=== PATIENT | female | born 1945 | race Caucasian/White ===

== ENCOUNTER 2016-04-29 20:46 | Emergency (ER) | payer MEDICARE, OTHER ==
--- NOTE | 2016-04-29 21:23 | ED ---
General Adult HPI - General Chief complaint: Shortness of Breath Stated complaint: MERRICK Time Seen by Provider: 04/29/16 21:00 Source: patient, RN notes reviewed Mode of arrival: wheelchair Limitations: no limitations - History of Present Illness Initial comments: A 71-year-old female with past medical history significant for asthma. Patient states she does have shortness breath over the last couple of days it seems to gotten worse. She also feels as though her heart is racing faster than normal. Patient denies any fever chills or cough. Patient denies any chest pain. Patient denies any episodes of diaphoresis. Patient denies any nausea. Patient states she has been constipated lately but she states that ongoing problem as well. Patient denies headache patient denies any numbness weakness. Patient denies dizziness lightheadedness or near syncopal episode. Patient denies any recent injury or trauma. - Related Data Home Medications Medication Instructions Recorded Confirmed Hydrochlorothiazide [Hydrodiuril] 12.5 mg PO QAM 10/13/13 04/29/16 Albuterol Inhaler [Ventolin Hfa 2 puff INHALATION RT-Q4H PRN 07/20/15 04/29/16 Inhaler] Baclofen [Lioresal] 5 mg PO TID 07/20/15 04/29/16 Dabigatran [Pradaxa] 150 mg PO BID 07/20/15 04/29/16 Hydrocodone/Acetaminophen [[place] 1 tab PO QID PRN 07/20/15 04/29/16 7.5-325] Moexipril [Univasc] 7.5 mg PO BID 07/20/15 04/29/16 Pravastatin Sodium [Pravachol] 40 mg PO DAILY 07/20/15 04/29/16 Latanoprost Ophth [Xalatan 0.005%] 1 drops BOTH EYES HS 01/21/16 04/29/16 Diclofenac Sodium [Voltaren Gel] 2 gram TOPICAL BID 03/14/16 04/29/16 Calcium Carbonate [Calcium] 600 mg PO DAILY 04/11/16 04/29/16 Levalbuterol Hfa Inhaler [Xopenex 2 puff INHALATION RT-TID PRN 04/11/16 04/29/16 Hfa Inhaler] Verapamil HCl [Verapamil ER] 240 mg PO BID 04/11/16 04/29/16 Previous Rx's Medication Instructions Recorded Omeprazole [PriLOSEC] 20 mg PO AC-BRKFST #30 capsule. 10/20/13 Acetaminophen Tab [Tylenol] 650 mg PO Q6HR PRN #0 tab 03/17/16 Ciprofloxacin HCl [Cipro] 500 mg PO Q12HR #14 tablet 04/11/16 Potassium Chloride ER [K-Dur 20] 20 meq PO DAILY #7 tab 04/29/16 Allergies Allergy/AdvReac Type Severity Reaction Status Date / Time No Known Allergies Allergy Verified 04/29/16 20:53 Review of Systems ROS Statement: Those systems with pertinent positive or pertinent negative responses have been documented in the HPI. ROS Other: All systems not noted in ROS Statement are negative. Past Medical History Past Medical History: Atrial Fibrillation, Asthma, GERD/Reflux, GI Bleed, Hyperlipidemia, Hypertension, Osteoarthritis (OA), Pneumonia, Syncope Additional Past Medical History / Comment(s): DJD, VARICOSE VEINS, BRONCHITIS, GLaUCOMA, stomach ULCER,DIVERTICULITIS,constipation History of Any Multi-Drug Resistant Organisms: None Reported Past Surgical History: Adenoidectomy, Appendectomy, Heart Catheterization, Hysterectomy, Tonsillectomy, Tubal Ligation Additional Past Surgical History / Comment(s): BILLY CATARACTS. Past Anesthesia/Blood Transfusion Reactions: No Reported Reaction Past Psychological History: No Psychological Hx Reported Additional Psychological History / Comment(s): PT LIVES ALONE IN [place] HER GRANDDAUGHTER KVNG VISITS DAILY.. Smoking Status: Never smoker Past Alcohol Use History: None Reported Past Drug Use History: None Reported - Past Family History Father Family Medical History: COPD Additional Family Medical History / Comment(s): EMPHYSEMA Mother Family Medical History: Diabetes Mellitus, Osteoarthritis (OA) Additional Family Medical History / Comment(s): EMPHYSEMA, BOWEL OBSTRUCTION/ COLOSTOMY General Exam - General Exam Comments Initial Comments: GENERAL: Patient is well-developed and well-nourished. Patient is nontoxic and well- hydrated and is in mild distress. ENT: Neck is soft and supple. No significant lymphadenopathy is noted. Oropharynx is clear. Moist mucous membranes. Neck has full range of motion without eliciting any pain. EYES: The sclera were anicteric and conjunctiva were pink and moist. Extraocular movements were intact and pupils were equal round and reactive to light. Eyelids were unremarkable. PULMONARY: Unlabored respirations. Good breath sounds bilaterally. No audible rales rhonchi or wheezing was noted. CARDIOVASCULAR: Patient has a regular heart rate and is tachycardic ABDOMEN: Soft and nontender with normal bowel sounds. No palpable organomegaly was noted. There is no palpable pulsatile mass. SKIN: Skin is clear with no lesions or rashes and otherwise unremarkable. NEUROLOGIC: Patient is alert and oriented x3. Cranial nerves II through XII are grossly intact. Motor and sensory are also intact. Normal speech, volume and content. Symmetrical smile. MUSCULOSKELETAL: Normal extremities with adequate strength and full range of motion. No lower extremity swelling or edema. No calf tenderness. LYMPHATICS: No significant lymphadenopathy is noted PSYCHIATRIC: Normal psychiatric evaluation. Limitations: no limitations Course Vital Signs 04/29/16 04/29/16 04/29/16 20:54 21:22 22:40 Temperature 96.9 F L Pulse Rate 58 L 90 Respiratory 20 18 Rate Blood Pressure 172/68 150/74 O2 Sat by Pulse 99 98 99 Oximetry 04/29/16 04/29/16 22:59 23:05 Temperature Pulse Rate 83 84 Respiratory Rate Blood Pressure O2 Sat by Pulse Oximetry Medical Decision Making - Medical Decision Making EKG shows sinus tachycardia with an occasional PVC and multiple PACs at 95 bpm. ID interval is 192 QRS is 90 QT 334 QTC is 419 per patient's EKG shows no ST segment elevation or depression or T-wave abdomen is noted. Patient's potassium was low so I gave her 20 mEq by mouth and 10 IV. I went back into reevaluate the patient after she received a breathing treatment and she was feeling considerably better. - Lab Data Result diagrams: 04/29/16 21:37 04/29/16 21:37 Lab Results 04/29/16 04/29/16 04/29/16 Range/Units 21:37 21:37 21:37 WBC 10.6 (3.8-10.6) k/uL RBC 4.39 (3.80-5.40) m/uL Hgb 14.1 (11.4-16.0) gm/dL Hct 44.2 (34.0-46.0) % MCV 100.6 H (80.0-100.0) fL MCH 32.2 (25.0-35.0) pg MCHC 32.0 (31.0-37.0) g/dL RDW 13.1 (11.5-15.5) % Plt Count 193 (150-450) k/uL Neutrophils % 61 % Lymphocytes % 27 % Monocytes % 7 % Eosinophils % 2 % Basophils % 0 % Neutrophils # 6.4 (1.3-7.7) k/uL Lymphocytes # 2.9 (1.0-4.8) k/uL Monocytes # 0.7 (0-1.0) k/uL Eosinophils # 0.2 (0-0.7) k/uL Basophils # 0.0 (0-0.2) k/uL PT (9.0-12.0) sec INR (<1.1) APTT (22.0-30.0) sec D-Dimer (<0.60) mg/L FEU Sodium 140 (137-145) mmol/L Potassium 2.8 L* (3.5-5.1) mmol/L Chloride 100 (98-107) mmol/L Carbon Dioxide 29 (22-30) mmol/L Anion Gap 11 mmol/L BUN 16 (7-17) mg/dL Creatinine 1.10 H (0.52-1.04) mg/dL Est GFR (MDRD) Af Amer 59 (>60 ml/min/1.73 sqM) Est GFR (MDRD) Non-Af 49 (>60 ml/min/1.73 sqM) Glucose 113 H (74-99) mg/dL Calcium 10.2 (8.4-10.2) mg/dL Magnesium 1.8 (1.6-2.3) mg/dL Total Bilirubin 1.0 (0.2-1.3) mg/dL AST 31 (14-36) U/L ALT 31 (9-52) U/L Alkaline Phosphatase 72 (38-126) U/L Total Creatine Kinase 73 (30-135) U/L CK-MB (CK-2) 1.3 (0.0-2.4) ng/mL CK-MB (CK-2) Rel Index 1.8 Troponin I <0.012 (0.000-0.034) ng/mL Total Protein 6.8 (6.3-8.2) g/dL Albumin 4.0 (3.5-5.0) g/dL 01/08/17 Range/Units 21:37 WBC (3.8-10.6) k/uL RBC (3.80-5.40) m/uL Hgb (11.4-16.0) gm/dL Hct (34.0-46.0) % MCV (80.0-100.0) fL MCH (25.0-35.0) pg MCHC (31.0-37.0) g/dL RDW (11.5-15.5) % Plt Count (150-450) k/uL Neutrophils % % Lymphocytes % % Monocytes % % Eosinophils % % Basophils % % Neutrophils # (1.3-7.7) k/uL Lymphocytes # (1.0-4.8) k/uL Monocytes # (0-1.0) k/uL Eosinophils # (0-0.7) k/uL Basophils # (0-0.2) k/uL PT 15.9 H (9.0-12.0) sec INR 1.6 (<1.1) APTT 54.7 H (22.0-30.0) sec D-Dimer 0.41 (<0.60) mg/L FEU Sodium (137-145) mmol/L Potassium (3.5-5.1) mmol/L Chloride (98-107) mmol/L Carbon Dioxide (22-30) mmol/L Anion Gap mmol/L BUN (7-17) mg/dL Creatinine (0.52-1.04) mg/dL Est GFR (MDRD) Af Amer (>60 ml/min/1.73 sqM) Est GFR (MDRD) Non-Af (>60 ml/min/1.73 sqM) Glucose (74-99) mg/dL Calcium (8.4-10.2) mg/dL Magnesium (1.6-2.3) mg/dL Total Bilirubin (0.2-1.3) mg/dL AST (14-36) U/L ALT (9-52) U/L Alkaline Phosphatase (38-126) U/L Total Creatine Kinase (30-135) U/L CK-MB (CK-2) (0.0-2.4) ng/mL CK-MB (CK-2) Rel Index Troponin I (0.000-0.034) ng/mL Total Protein (6.3-8.2) g/dL Albumin (3.5-5.0) g/dL Disposition Clinical Impression: Dyspnea, Multifocal atrial tachycardia, Hypokalemia Disposition: HOME SELF-CARE Condition: Good Instructions: Hypokalemia (ED) Prescriptions: Potassium Chloride ER [K-Dur 20] 20 meq PO DAILY #7 tab Referrals: Faizan Estrella MD [Primary Care Provider] - 1-2 days Time of Disposition: 23:35
[2016-04-29 21:54] LABS: Basophils % (A) 0 %; CH 33.9; CHCM 33.9; Eosinophils # (A) 0.2 k/uL (0-0.7); Eosinophils % (A) 2 %; HCT 44.2 % (34.0-46.0); HGB 14.1 gm/dL (11.4-16.0); Luc # (Auto) 0.32; Luc % (Auto) 3; Lymphocytes # (A) 2.9 k/uL (1.0-4.8); Lymphocytes % (A) 27 %; MCH 32.2 pg (25.0-35.0); MCV 100.6 fL (80.0-100.0); Mean Platelet Volume 8.6; Monocytes # (A) 0.7 k/uL (0-1.0); Monocytes % (A) 7 %; Neutrophils # (A) 6.4 k/uL (1.3-7.7); Neutrophils % (A) 61 %; RBC 4.39 m/uL (3.80-5.40); RDW 13.1 % (11.5-15.5); WBC 10.6 k/uL (3.8-10.6); WBC (Perox) 10.93
[2016-04-29 22:00] LABS: INR 1.6 (<1.1); Partial Thromboplastin Time 54.7 sec (22.0-30.0); Prothrombin Time 15.9 sec (9.0-12.0)
--- NOTE | 2016-04-29 22:01 | XR ---
EXAMINATION TYPE: XR chest 2V DATE OF EXAM: 04/29/2016 9:51 PM COMPARISON: 03/14/2016 HISTORY: Short of breath TECHNIQUE: Frontal and lateral views of the chest are obtained. FINDINGS: Heart is slightly enlarged. There is coarsening of interstitial markings. There is no manda s heart failure. There are no hilar masses. Thoracic aorta is atheromatous. There are chest leads. IMPRESSION: Mild cardiomegaly. Mild pulmonary fibrosis. No acute lung disease. No significant change compared to old exam.
[2016-04-29 22:06] LABS: Creatine Kinase 73 U/L (30-135)
[2016-04-29 22:18] LABS: Creatine Kinase MB 1.3 ng/mL (0.0-2.4); Troponin I <0.012 ng/mL (0.000-0.034)
[2016-04-29 22:23] LABS: Calcium 10.2 mg/dL (8.4-10.2); Magnesium 1.8 mg/dL (1.6-2.3); Total Protein 6.8 g/dL (6.3-8.2)
[2016-04-29 22:27] LABS: Potassium 2.8 mmol/L (3.5-5.1)
[2016-04-29] MEDS ORDERED: POTASSIUM CHLORIDE ER 20 MEQ TAB.ER PO STA (22:27)
[2016-04-29] MEDS ORDERED: IPRATROPIUM-ALBUTEROL 3 ML NEB INHALATION STA (22:36)
[2016-04-29 22:52] VITALS: RESP 18
[2016-04-29] MEDS ORDERED: POTASSIUM CHLORIDE 10 MEQ, LIDOCAINE 2% INJ 10 MG in SODIUM CHLORIDE 0.9% 100 ML IVPB SCH (23:00)
[2016-04-30 00:19] VITALS: BP 154/74; PULSE 86; TEMP 98
== END 2016-04-30 00:18 | disposition home or self-care (01) ==
LOC: EC 20:46
DX: R06.00 Dyspnea, unspecified (principal); I47.1 Supraventricular tachycardia; E87.6 Hypokalemia; I48.91 Unspecified atrial fibrillation; J45.909 Unspecified asthma, uncomplicated; K21.9 Gastro-esophageal reflux disease without esophagitis; E78.5 Hyperlipidemia, unspecified; I10 Essential (primary) hypertension; M19.90 Unspecified osteoarthritis, unspecified site; Z87.01 Personal history of pneumonia (recurrent); H40.9 Unspecified glaucoma; Z98.61 Coronary angioplasty status; Z79.01 Long term (current) use of anticoagulants; Z79.899 Other long term (current) drug therapy
CPT/HCPCS: 99285; 96365; 36415; 94640; 93005; 85379; 80053; 82550; 82553; 83735; 84484; 85025; 85610; 85730; 71020; J2001; J3480

== ENCOUNTER 2016-06-24 20:37 | Emergency (ER) | payer MEDICARE ==
[2016-06-24 20:49] VITALS: RESP 18
--- NOTE | 2016-06-24 21:10 | ED ---
General Adult HPI - General Chief complaint: Abdominal Pain Stated complaint: constipated/wax in ears Time Seen by Provider: 06/24/16 20:53 Source: patient, family, RN notes reviewed, old records reviewed Mode of arrival: ambulatory Limitations: no limitations - History of Present Illness Initial comments: Chief complaint history of present illness is a 69-year-old female here with a friend or family. She's had no bowel movement for 3 days, past history of constipation. Also a fever with productive cough. - Related Data Home Medications Medication Instructions Recorded Confirmed Hydrochlorothiazide [Hydrodiuril] 12.5 mg PO QAM 10/13/13 04/29/16 Albuterol Inhaler [Ventolin Hfa 2 puff INHALATION RT-Q4H PRN 07/20/15 04/29/16 Inhaler] Baclofen [Lioresal] 5 mg PO TID 07/20/15 04/29/16 Dabigatran [Pradaxa] 150 mg PO BID 07/20/15 04/29/16 Hydrocodone/Acetaminophen [[place] 1 tab PO QID PRN 07/20/15 04/29/16 7.5-325] Moexipril [Univasc] 7.5 mg PO BID 07/20/15 04/29/16 Pravastatin Sodium [Pravachol] 40 mg PO DAILY 07/20/15 04/29/16 Latanoprost Ophth [Xalatan 0.005%] 1 drops BOTH EYES HS 01/21/16 04/29/16 Diclofenac Sodium [Voltaren Gel] 2 gram TOPICAL BID 03/14/16 04/29/16 Calcium Carbonate [Calcium] 600 mg PO DAILY 04/11/16 04/29/16 Levalbuterol Hfa Inhaler [Xopenex 2 puff INHALATION RT-TID PRN 04/11/16 04/29/16 Hfa Inhaler] Verapamil HCl [Verapamil ER] 240 mg PO BID 04/11/16 04/29/16 Previous Rx's Medication Instructions Recorded Omeprazole [PriLOSEC] 20 mg PO AC-BRKFST #30 capsule. 10/20/13 Acetaminophen Tab [Tylenol] 650 mg PO Q6HR PRN #0 tab 03/17/16 Ciprofloxacin HCl [Cipro] 500 mg PO Q12HR #14 tablet 04/11/16 Potassium Chloride ER [K-Dur 20] 20 meq PO DAILY #7 tab 04/29/16 Levofloxacin [Levaquin] 500 mg PO DAILY #7 tab 06/25/16 Allergies Allergy/AdvReac Type Severity Reaction Status Date / Time No Known Allergies Allergy Verified 06/24/16 20:47 Review of Systems ROS Statement: Those systems with pertinent positive or pertinent negative responses have been documented in the HPI. Review of systems; she is denying any headache she has difficulty hearing out of her right ear. She thinks follow wax. I examine the ear there is no significant amount of waxy prevented from hearing. She does use a hearing aid. Suggested she got a hearing aid rechecked. Patient denies a headache or sore throat. She does a productive sounding cough with a temp of 101. No stiff neck no chest pain no shortness of breath. She does have constipation problems and cramps for the past 3 days tried MiraLAX this morning without effect. Denies any urinary tract problems no diarrhea. All systems reviewed. Past medical problems A. fib, asthma, GERD, GI bleed, hyperlipidemia, hypertension, OA, pneumonia, syncope, degenerative joint, varicose veins, glaucoma. Surgeries tonsils, adenoids, appendectomy, heart catheterization hysterectomy and tubal ligation and bilateral cataracts. The patient's family history no cancers. Patient denies any ALLERGIES nonsmoker nondrinker ROS Other: All systems not noted in ROS Statement are negative. Past Medical History Past Medical History: Atrial Fibrillation, Asthma, GERD/Reflux, GI Bleed, Hyperlipidemia, Hypertension, Osteoarthritis (OA), Pneumonia, Syncope Additional Past Medical History / Comment(s): DJD, VARICOSE VEINS, BRONCHITIS, GLaUCOMA, stomach ULCER,DIVERTICULITIS,constipation History of Any Multi-Drug Resistant Organisms: None Reported Past Surgical History: Adenoidectomy, Appendectomy, Heart Catheterization, Hysterectomy, Tonsillectomy, Tubal Ligation Additional Past Surgical History / Comment(s): BILLY CATARACTS. Past Anesthesia/Blood Transfusion Reactions: No Reported Reaction Past Psychological History: No Psychological Hx Reported Additional Psychological History / Comment(s): PT LIVES ALONE IN [place] HER GRANDDAUGHTER KVNG VISITS DAILY.. Smoking Status: Never smoker Past Alcohol Use History: None Reported Past Drug Use History: None Reported - Past Family History Father Family Medical History: COPD Additional Family Medical History / Comment(s): EMPHYSEMA Mother Family Medical History: Diabetes Mellitus, Osteoarthritis (OA) Additional Family Medical History / Comment(s): EMPHYSEMA, BOWEL OBSTRUCTION/ COLOSTOMY General Exam - General Exam Comments Initial Comments: General: The patient is awake and alert, complaining of a cough, fever, no bowel movement for 3 days. Vital signs show temperature 101.0 pulse 104 over story rate 18 pulse ox 94% on room air blood pressure 121/71 Eye: Pupils are equal, round and reactive to light, extra-ocular movements are intact ; there is normal conjunctiva bilaterally. No signs of icterus. Evidence of bilateral cataracts. Ears, nose, mouth and throat: There are moist mucous membranes and no oral lesions. Complains of decreased hearing in her right ear. She uses a hearing aid in that ear. Urine shows flattened tympanic membrane minimal to no significant amount of wax in the ear. Patient will have a hearing aid tested. Neck: The neck is supple, there is no tenderness . Cardiovascular: Irregular rate and rhythm. Heart rate 104. No murmur, rub or gallop is appreciated. Respiratory: Productive sounding cough, harsh breath sounds. Gastrointestinal: Complains of 3 days of constipation. No organomegaly appreciated with palpation. Mild tenderness with palpation. No guarding rebound or referred pain. Back: There is no tenderness to palpation in the midline. There is no obvious deformity. No rashes noted. Musculoskeletal: Normal ROM, no tenderness, There is no pedal edema. There is no calf tenderness or swelling. Sensation intact. Pulses equal bilaterally 2+. Neurological: No neuro deficits. Patient is very hard of hearing uses hearing aids Skin: Skin is warm and dry and no rashes or lesions are noted. Limitations: no limitations Course Vital Signs 06/24/16 06/24/16 20:47 23:55 Temperature 101.0 F H 98.1 F Pulse Rate 104 H 74 Respiratory 18 18 Rate Blood Pressure 121/71 146/71 O2 Sat by Pulse 94 L 93 L Oximetry Medical Decision Making - Medical Decision Making Medical decision-making. The patient's influenza AB test is negative. Chest x-ray was done and reviewed by radiologist his impression is there are new bilateral pulmonary interstitial infiltrates compare the old exam. There is probably some airspace pneumonia and left lower lobe that is new compared to old exam. No gross heart failure. As read by Dr. Villegas X-ray of the abdomen was done and reviewed by radiologist his impression is there is no sign of intestinal obstruction or pneumoperitoneum. Fecal pattern is normal. There is no evidence of a mass. There is mild lumbar dextroscoliosis. There are no pathological ossifications over the kidneys. Impression; nonacute abdomen. No change. As read by Dr. Villegas. Patient has not had a bowel movement 3 days and took MiraLAX at home without any change. The patient will receive a molasses milk enema while here. Patient had a slight bowel movement. But again not complaining of abdominal pain. The plant patient go home increase her MiraLAX, use milk of magnesia as well increase her fluids and bulky diet. Waiting for the bowel movement happen. Also start Levaquin for her pneumonia. Tylenol for fever and follow- up with family physician. - Lab Data Lab Results 06/24/16 Range/Units 21:19 Influenza Type A RNA Not Detected (Not Detectd) Influenza Type B (PCR) Not Detected (Not Detectd) Disposition Clinical Impression: Pneumonia Disposition: HOME SELF-CARE Condition: Stable Instructions: Community Acquired Pneumonia (ED) Additional Instructions: Take Levaquin daily for the next week. Increase fluids, use milk of magnesia, continue with MiraLAX. Follow-up with family physician Prescriptions: Levofloxacin [Levaquin] 500 mg PO DAILY #7 tab Time of Disposition: 00:17
--- NOTE | 2016-06-24 21:31 | XR ---
EXAMINATION TYPE: XR chest 2V DATE OF EXAM: 06/24/2016 9:22 PM COMPARISON: 04/29/2016 HISTORY: Fever and cough TECHNIQUE: Frontal and lateral views of the chest are obtained. FINDINGS: There is general coarsening of interstitial pulmonary markings. Heart is slightly enlarged . There is no pleural effusion. There are no hilar masses. Thoracic aorta is atheromatous. IMPRESSION: There are new bilateral pulmonary interstitial infiltrates compared to old exam. There i s probably some airspace pneumonia in the left lower lobe that is new compared to old exam. No gross heart failure.
--- NOTE | 2016-06-24 21:33 | XR ---
EXAMINATION TYPE: XR abdomen 2V DATE OF EXAM: 06/24/2016 9:22 PM COMPARISON: 07/22/2015 HISTORY: Constipation and cramping TECHNIQUE: 2 views FINDINGS: There is no sign of intestinal obstruction or pneumoperitoneum. Fecal pattern is normal. Th ere is no evidence of a mass. There is mild lumbar dextroscoliosis. There are no pathologic ossificat ions over the kidneys. IMPRESSION: Nonacute abdomen. No change.
[2016-06-24] MEDS ORDERED: LEVOFLOXACIN 500 MG TAB PO STA (23:08)
[2016-06-24 23:56] VITALS: BP 146/71; PULSE 74; TEMP 98.1
== END 2016-06-25 00:24 | disposition home or self-care (01) ==
LOC: EC 20:37
DX: J18.9 Pneumonia, unspecified organism (principal); K59.00 Constipation, unspecified; H61.21 Impacted cerumen, right ear; I48.91 Unspecified atrial fibrillation; J45.909 Unspecified asthma, uncomplicated; E78.5 Hyperlipidemia, unspecified; I10 Essential (primary) hypertension; M19.90 Unspecified osteoarthritis, unspecified site; H40.9 Unspecified glaucoma; Z83.6 Family history of other diseases of the respiratory system; Z83.79 Family history of other diseases of the digestive system; Z95.818 Presence of other cardiac implants and grafts; Z79.899 Other long term (current) drug therapy; Z79.01 Long term (current) use of anticoagulants
CPT/HCPCS: 71020; 74020; 87502; 99284

== ENCOUNTER 2016-08-05 14:54 | Inpatient (IN) | payer MEDICARE, OTHER ==
[2016-08-05] MEDS ORDERED: IPRATROPIUM 0.5 MG/2.5 ML NEBU INHALATION STA (15:33)
[2016-08-05] MEDS ORDERED: SODIUM CHLORIDE 0.9% 1,000 ML IV STA (15:33)
[2016-08-05] MEDS ORDERED: ALBUTEROL NEBULIZED 2.5 MG/3 ML INHALATION STA (15:33)
[2016-08-05] MEDS ORDERED: LEVOFLOXACIN 750 MG TAB PO STA (15:33)
--- NOTE | 2016-08-05 15:55 | ED ---
General Adult HPI - General Chief complaint: Shortness of Breath Stated complaint: bronchitis Time Seen by Provider: 08/05/16 15:33 Source: patient, RN notes reviewed, old records reviewed Mode of arrival: wheelchair Limitations: no limitations - History of Present Illness Initial comments: This is a 71-year-old female here for evaluation patient presents here for evaluation shortness of cough and congestion, significant increasing shortness of breath. Patient also with fever. History of asthma. No chest pain. No travel history no sick contacts or recent hospitalizations. She has admits increased cough and congestion denies abdominal pain nausea vomiting or diarrhea. - Related Data Home Medications Medication Instructions Recorded Confirmed Albuterol Inhaler [Ventolin Hfa 2 puff INHALATION RT-Q4H PRN 07/20/15 08/05/16 Inhaler] Baclofen [Lioresal] 10 mg PO TID 07/20/15 08/05/16 Dabigatran [Pradaxa] 150 mg PO BID 07/20/15 08/05/16 Hydrocodone/Acetaminophen [[place] 1 tab PO QID PRN 07/20/15 08/05/16 7.5-325] Moexipril [Univasc] 7.5 mg PO BID 07/20/15 08/05/16 Pravastatin Sodium [Pravachol] 40 mg PO DAILY 07/20/15 08/05/16 Diclofenac Sodium [Voltaren Gel] 2 gram TOPICAL BID 03/14/16 08/05/16 Verapamil HCl [Verapamil ER] 240 mg PO BID 04/11/16 08/05/16 Ipratropium [place] [Atrovent Hfa] 2 puff INHALATION RT-BID 08/05/16 08/05/16 Previous Rx's Medication Instructions Recorded Omeprazole [PriLOSEC] 20 mg PO AC-BRKFST #30 capsule. 10/20/13 Cefuroxime Axetil [Ceftin] 500 mg PO BID #6 tab 08/08/16 predniSONE 10 mg PO DAILY #30 tab 08/08/16 Allergies Allergy/AdvReac Type Severity Reaction Status Date / Time No Known Allergies Allergy Verified 08/05/16 15:45 Review of Systems ROS Statement: Those systems with pertinent positive or pertinent negative responses have been documented in the HPI. ROS Other: All systems not noted in ROS Statement are negative. Past Medical History Past Medical History: Atrial Fibrillation, Asthma, GERD/Reflux, GI Bleed, Hyperlipidemia, Hypertension, Osteoarthritis (OA), Pneumonia, Syncope Additional Past Medical History / Comment(s): DJD, VARICOSE VEINS, BRONCHITIS, GLaUCOMA, stomach ULCER,DIVERTICULITIS,constipation History of Any Multi-Drug Resistant Organisms: None Reported Past Surgical History: Adenoidectomy, Appendectomy, Heart Catheterization, Hysterectomy, Tonsillectomy, Tubal Ligation Additional Past Surgical History / Comment(s): BILLY CATARACTS. Past Anesthesia/Blood Transfusion Reactions: No Reported Reaction Past Psychological History: No Psychological Hx Reported Additional Psychological History / Comment(s): PT LIVES AL[place] IN [place] HER GRANDDAUGHTER KVNG VISITS DAILY.. Smoking Status: Never smoker Past Alcohol Use History: None Reported Past Drug Use History: None Reported - Past Family History Father Family Medical History: COPD Additional Family Medical History / Comment(s): EMPHYSEMA Mother Family Medical History: Diabetes Mellitus, Osteoarthritis (OA) Additional Family Medical History / Comment(s): EMPHYSEMA, BOWEL OBSTRUCTION/ COLOSTOMY General Exam Limitations: no limitations General appearance: alert, in no apparent distress, anxious Head exam: Present: atraumatic, normocephalic, normal inspection Eye exam: Present: normal appearance, PERRL, EOMI. Absent: scleral icterus, conjunctival injection, periorbital swelling ENT exam: Present: mucous membranes dry Neck exam: Present: normal inspection. Absent: tenderness, meningismus, lymphadenopathy Respiratory exam: Present: respiratory distress, wheezes, chest wall tenderness , accessory muscle use, decreased breath sounds, prolonged expiratory. Absent: rales, rhonchi, stridor Cardiovascular Exam: Present: normal rhythm, tachycardia, normal heart sounds. Absent: systolic murmur, diastolic murmur, rubs, gallop, clicks GI/Abdominal exam: Present: soft, normal bowel sounds. Absent: distended, tenderness, guarding, rebound, rigid Extremities exam: Present: normal inspection, full ROM, normal capillary refill. Absent: tenderness, pedal edema, joint swelling, calf tenderness Back exam: Present: normal inspection Neurological exam: Present: alert, oriented X3, CN II-XII intact Psychiatric exam: Present: normal affect, normal mood Skin exam: Present: warm, dry, intact, normal color. Absent: rash Course Vital Signs 08/05/16 08/05/16 08/05/16 15:25 15:51 16:47 Temperature 100.7 F H Pulse Rate 108 H 102 H Respiratory 18 18 19 Rate Blood Pressure 138/84 146/76 O2 Sat by Pulse 95 97 Oximetry 08/05/16 08/05/16 08/05/16 16:59 18:02 18:15 Temperature 100.3 F H 98 F 97.5 F L Pulse Rate 98 94 Respiratory 16 18 Rate Blood Pressure 144/79 144/79 O2 Sat by Pulse 99 97 Oximetry - Reevaluation(s) Reevaluation #1: Patient initially is refusing. She was secondary to tachycardia making her heart race, although this time or shortness of breath she will accept a breathing treatment EKG Findings - EKG Comments: EKG Findings:: EKG shows sinus tachycardia rate 113, OR 154, QRS 82, QTc 502 Medical Decision Making - Medical Decision Making 71 female here with history of asthma coming here with shortness of breath chest pain and fever. Positive pneumonia. Patient was restarted on appropriate [place] breathing treatments, admitted for pulmonary sputum and cardiac monitoring - Lab Data Result diagrams: 08/07/16 08:51 08/07/16 20:11 Lab Results 08/05/16 08/05/16 08/05/16 Range/Units 15:49 15:49 15:49 WBC 19.9 H (3.8-10.6) k/uL RBC 4.60 (3.80-5.40) m/uL Hgb 15.2 (11.4-16.0) gm/dL Hct 46.2 H (34.0-46.0) % MCV 100.6 H (80.0-100.0) fL MCH 33.1 (25.0-35.0) pg MCHC 32.9 (31.0-37.0) g/dL RDW 14.6 (11.5-15.5) % Plt Count 260 (150-450) k/uL Neutrophils % 81 % Neutrophils % (Manual) % Band Neutrophils % % Lymphocytes % 10 % Lymphocytes % (Manual) % Monocytes % 6 % Monocytes % (Manual) % Eosinophils % 1 % Basophils % 1 % Neutrophils # 16.1 H (1.3-7.7) k/uL Neutrophils # (Manual) (1.3-7.7) k/uL Lymphocytes # 2.1 (1.0-4.8) k/uL Lymphocytes # (Manual) (1.0-4.8) k/uL Monocytes # 1.1 H (0-1.0) k/uL Monocytes # (Manual) (0-1.0) k/uL Eosinophils # 0.2 (0-0.7) k/uL Basophils # 0.1 (0-0.2) k/uL Nucleated RBCs (0-0) /100 WBC Anisocytosis (manual) Macrocytosis Slight PT (9.0-12.0) sec INR (<1.1) APTT (22.0-30.0) sec Sodium 142 (137-145) mmol/L Potassium 3.2 L (3.5-5.1) mmol/L Chloride 96 L (98-107) mmol/L Carbon Dioxide 34 H (22-30) mmol/L Anion Gap 12 mmol/L BUN 21 H (7-17) mg/dL Creatinine 0.77 (0.52-1.04) mg/dL Est GFR (MDRD) Af Amer >60 (>60 ml/min/1.73 sqM) Est GFR (MDRD) Non-Af >60 (>60 ml/min/1.73 sqM) Glucose 107 H (74-99) mg/dL POC Glucose (mg/dL) (75-99) mg/dL POC Glu Shift [employer] Supervisor ID Estimated Ave Glu mg/dL mg/dL Hemoglobin A1c (4.2-6.1) % Calcium 9.9 (8.4-10.2) mg/dL Magnesium 1.5 L (1.6-2.3) mg/dL Total Bilirubin 1.5 H (0.2-1.3) mg/dL AST 26 (14-36) U/L ALT 34 (9-52) U/L Alkaline Phosphatase 93 (38-126) U/L Total Creatine Kinase 30 (30-135) U/L CK-MB (CK-2) 0.4 (0.0-2.4) ng/mL CK-MB (CK-2) Rel Index 1.3 Troponin I <0.012 (0.000-0.034) ng/mL NT-Pro-B Natriuret Pep pg/mL Total Protein 7.9 (6.3-8.2) g/dL Albumin 4.3 (3.5-5.0) g/dL 08/05/16 08/05/16 08/05/16 Range/Units 15:49 15:49 15:49 WBC (3.8-10.6) k/uL RBC (3.80-5.40) m/uL Hgb (11.4-16.0) gm/dL Hct (34.0-46.0) % MCV (80.0-100.0) fL MCH (25.0-35.0) pg MCHC (31.0-37.0) g/dL RDW (11.5-15.5) % Plt Count (150-450) k/uL Neutrophils % % Neutrophils % (Manual) % Band Neutrophils % % Lymphocytes % % Lymphocytes % (Manual) % Monocytes % % Monocytes % (Manual) % Eosinophils % % Basophils % % Neutrophils # (1.3-7.7) k/uL Neutrophils # (Manual) (1.3-7.7) k/uL Lymphocytes # (1.0-4.8) k/uL Lymphocytes # (Manual) (1.0-4.8) k/uL Monocytes # (0-1.0) k/uL Monocytes # (Manual) (0-1.0) k/uL Eosinophils # (0-0.7) k/uL Basophils # (0-0.2) k/uL Nucleated RBCs (0-0) /100 WBC Anisocytosis (manual) Macrocytosis PT 10.9 (9.0-12.0) sec INR 1.1 (<1.1) APTT 34.2 H (22.0-30.0) sec Sodium (137-145) mmol/L Potassium (3.5-5.1) mmol/L Chloride (98-107) mmol/L Carbon Dioxide (22-30) mmol/L Anion Gap mmol/L BUN (7-17) mg/dL Creatinine (0.52-1.04) mg/dL Est GFR (MDRD) Af Amer (>60 ml/min/1.73 sqM) Est GFR (MDRD) Non-Af (>60 ml/min/1.73 sqM) Glucose (74-99) mg/dL POC Glucose (mg/dL) (75-99) mg/dL POC Glu Shift [employer] Supervisor ID Estimated Ave Glu mg/dL 108 mg/dL Hemoglobin A1c 5.4 (4.2-6.1) % Calcium (8.4-10.2) mg/dL Magnesium (1.6-2.3) mg/dL Total Bilirubin (0.2-1.3) mg/dL AST (14-36) U/L ALT (9-52) U/L Alkaline Phosphatase (38-126) U/L Total Creatine Kinase (30-135) U/L CK-MB (CK-2) (0.0-2.4) ng/mL CK-MB (CK-2) Rel Index Troponin I (0.000-0.034) ng/mL NT-Pro-B Natriuret Pep 480 pg/mL Total Protein (6.3-8.2) g/dL Albumin (3.5-5.0) g/dL 08/05/16 08/06/16 08/06/16 Range/Units 20:41 02:27 07:22 WBC (3.8-10.6) k/uL RBC (3.80-5.40) m/uL Hgb (11.4-16.0) gm/dL Hct (34.0-46.0) % MCV (80.0-100.0) fL MCH (25.0-35.0) pg MCHC (31.0-37.0) g/dL RDW (11.5-15.5) % Plt Count (150-450) k/uL Neutrophils % % Neutrophils % (Manual) % Band Neutrophils % % Lymphocytes % % Lymphocytes % (Manual) % Monocytes % % Monocytes % (Manual) % Eosinophils % % Basophils % % Neutrophils # (1.3-7.7) k/uL Neutrophils # (Manual) (1.3-7.7) k/uL Lymphocytes # (1.0-4.8) k/uL Lymphocytes # (Manual) (1.0-4.8) k/uL Monocytes # (0-1.0) k/uL Monocytes # (Manual) (0-1.0) k/uL Eosinophils # (0-0.7) k/uL Basophils # (0-0.2) k/uL Nucleated RBCs (0-0) /100 WBC Anisocytosis (manual) Macrocytosis PT (9.0-12.0) sec INR (<1.1) APTT (22.0-30.0) sec Sodium (137-145) mmol/L Potassium 3.9 (3.5-5.1) mmol/L Chloride (98-107) mmol/L Carbon Dioxide (22-30) mmol/L Anion Gap mmol/L BUN (7-17) mg/dL Creatinine (0.52-1.04) mg/dL Est GFR (MDRD) Af Amer (>60 ml/min/1.73 sqM) Est GFR (MDRD) Non-Af (>60 ml/min/1.73 sqM) Glucose (74-99) mg/dL POC Glucose (mg/dL) 178 H 145 H (75-99) mg/dL POC Glu Shift [employer] Supervisor ID Anyi PoonSoSera Estimated [address] Glu mg/dL mg/dL Hemoglobin A1c (4.2-6.1) % Calcium (8.4-10.2) mg/dL Magnesium (1.6-2.3) mg/dL Total Bilirubin (0.2-1.3) mg/dL AST (14-36) U/L ALT (9-52) U/L Alkaline Phosphatase (38-126) U/L Total Creatine Kinase (30-135) U/L CK-MB (CK-2) (0.0-2.4) ng/mL CK-MB (CK-2) Rel Index Troponin I (0.000-0.034) ng/mL NT-Pro-B Natriuret Pep pg/mL Total Protein (6.3-8.2) g/dL Albumin (3.5-5.0) g/dL 08/06/16 08/06/16 08/06/16 Range/Units 07:41 11:50 17:13 WBC (3.8-10.6) k/uL RBC (3.80-5.40) m/uL Hgb (11.4-16.0) gm/dL Hct (34.0-46.0) % MCV (80.0-100.0) fL MCH (25.0-35.0) pg MCHC (31.0-37.0) g/dL RDW (11.5-15.5) % Plt Count (150-450) k/uL Neutrophils % % Neutrophils % (Manual) % Band Neutrophils % % Lymphocytes % % Lymphocytes % (Manual) % Monocytes % % Monocytes % (Manual) % Eosinophils % % Basophils % % Neutrophils # (1.3-7.7) k/uL Neutrophils # (Manual) (1.3-7.7) k/uL Lymphocytes # (1.0-4.8) k/uL Lymphocytes # (Manual) (1.0-4.8) k/uL Monocytes # (0-1.0) k/uL Monocytes # (Manual) (0-1.0) k/uL Eosinophils # (0-0.7) k/uL Basophils # (0-0.2) k/uL Nucleated RBCs (0-0) /100 WBC Anisocytosis (manual) Macrocytosis PT (9.0-12.0) sec INR (<1.1) APTT (22.0-30.0) sec Sodium 143 (137-145) mmol/L Potassium 3.8 (3.5-5.1) mmol/L Chloride 105 (98-107) mmol/L Carbon Dioxide 27 (22-30) mmol/L Anion Gap 11 mmol/L BUN 22 H (7-17) mg/dL Creatinine 0.72 (0.52-1.04) mg/dL Est GFR (MDRD) Af Amer >60 (>60 ml/min/1.73 sqM) Est GFR (MDRD) Non-Af >60 (>60 ml/min/1.73 sqM) Glucose 172 H (74-99) mg/dL POC Glucose (mg/dL) 132 H 145 H (75-99) mg/dL POC Glu Shift Production Supervisor ID [place], Sera Radford, Sera Estimated [address] Glu mg/dL mg/dL Hemoglobin A1c (4.2-6.1) % Calcium 9.3 (8.4-10.2) mg/dL Magnesium 2.3 (1.6-2.3) mg/dL Total Bilirubin 1.1 (0.2-1.3) mg/dL AST 23 (14-36) U/L ALT 25 (9-52) U/L Alkaline Phosphatase 80 (38-126) U/L Total Creatine Kinase (30-135) U/L CK-MB (CK-2) (0.0-2.4) ng/mL CK-MB (CK-2) Rel Index Troponin I (0.000-0.034) ng/mL NT-Pro-B Natriuret Pep pg/mL Total Protein 6.9 (6.3-8.2) g/dL Albumin 3.6 (3.5-5.0) g/dL 08/06/16 08/07/16 08/07/16 Range/Units 20:12 07:05 08:51 WBC 29.0 H* (3.8-10.6) k/uL RBC 4.04 (3.80-5.40) m/uL Hgb 13.4 (11.4-16.0) gm/dL Hct 41.3 (34.0-46.0) % MCV 102.4 H (80.0-100.0) fL MCH 33.1 (25.0-35.0) pg MCHC 32.4 (31.0-37.0) g/dL RDW 14.7 (11.5-15.5) % Plt Count 241 (150-450) k/uL Neutrophils % % Neutrophils % (Manual) 87.0 % Band Neutrophils % 6.0 % Lymphocytes % % Lymphocytes % (Manual) 5.0 % Monocytes % % Monocytes % (Manual) 2.0 % Eosinophils % % Basophils % % Neutrophils # (1.3-7.7) k/uL Neutrophils # (Manual) 27.0 H (1.3-7.7) k/uL Lymphocytes # (1.0-4.8) k/uL Lymphocytes # (Manual) 1.5 (1.0-4.8) k/uL Monocytes # (0-1.0) k/uL Monocytes # (Manual) 0.6 (0-1.0) k/uL Eosinophils # (0-0.7) k/uL Basophils # (0-0.2) k/uL Nucleated RBCs 0 (0-0) /100 WBC Anisocytosis (manual) Present Macrocytosis Slight PT (9.0-12.0) sec INR (<1.1) APTT (22.0-30.0) sec Sodium (137-145) mmol/L Potassium (3.5-5.1) mmol/L Chloride (98-107) mmol/L Carbon Dioxide (22-30) mmol/L Anion Gap mmol/L BUN (7-17) mg/dL Creatinine (0.52-1.04) mg/dL Est GFR (MDRD) Af Amer (>60 ml/min/1.73 sqM) Est GFR (MDRD) Non-Af (>60 ml/min/1.73 sqM) Glucose (74-99) mg/dL POC Glucose (mg/dL) 124 H 141 H (75-99) mg/dL POC Glu Shift Production Supervisor ID Anyi Poonmariankimberley Shae [address] Glu mg/dL mg/dL Hemoglobin A1c (4.2-6.1) % Calcium (8.4-10.2) mg/dL Magnesium (1.6-2.3) mg/dL Total Bilirubin (0.2-1.3) mg/dL AST (14-36) U/L ALT (9-52) U/L Alkaline Phosphatase (38-126) U/L Total Creatine Kinase (30-135) U/L CK-MB (CK-2) (0.0-2.4) ng/mL CK-MB (CK-2) Rel Index Troponin I (0.000-0.034) ng/mL NT-Pro-B Natriuret Pep pg/mL Total Protein (6.3-8.2) g/dL Albumin (3.5-5.0) g/dL - Radiology Data Radiology results: report reviewed (Chest x-ray is negative for acute disease), image reviewed Disposition Clinical Impression: Acute exacerbation of chronic obstructive airways disease, Fever Disposition: ADMITTED IP TO THIS [facility] Condition: Fair
[2016-08-05] MEDS ORDERED: ACETAMINOPHEN TAB 500 MG TAB PO STA (15:59)
[2016-08-05] MEDS ORDERED: IBUPROFEN 800 MG TAB PO STA (15:59)
[2016-08-05 16:03] LABS: Basophils # (A) 0.1 k/uL (0-0.2); Basophils % (A) 1 %; CH 33.7; CHCM 33.7; Eosinophils # (A) 0.2 k/uL (0-0.7); Eosinophils % (A) 1 %; HCT 46.2 % (34.0-46.0); HDW 2.34; HGB 15.2 gm/dL (11.4-16.0); Luc # (Auto) 0.36; Luc % (Auto) 2; Lymphocytes # (A) 2.1 k/uL (1.0-4.8); Lymphocytes % (A) 10 %; MCH 33.1 pg (25.0-35.0); MCHC 32.9 g/dL (31.0-37.0); MCV 100.6 fL (80.0-100.0); Macrocytosis Slight; Mean Platelet Volume 7.4; Monocytes # (A) 1.1 k/uL (0-1.0); Monocytes % (A) 6 %; Neutrophils # (A) 16.1 k/uL (1.3-7.7); Neutrophils % (A) 81 %; RDW 14.6 % (11.5-15.5); WBC 19.9 k/uL (3.8-10.6); WBC (Perox) 19.17
[2016-08-05 16:09] LABS: INR 1.1 (<1.1); Partial Thromboplastin Time 34.2 sec (22.0-30.0); Prothrombin Time 10.9 sec (9.0-12.0)
[2016-08-05 16:10] LABS: ALT 34 U/L (9-52); AST 26 U/L (14-36); Alkaline Phosphatase 93 U/L (38-126); Anion Gap 12 mmol/L; Blood Urea Nitrogen 21 mg/dL (7-17); Calcium 9.9 mg/dL (8.4-10.2); Carbon Dioxide 34 mmol/L (22-30); Chloride 96 mmol/L (98-107); Glucose 107 mg/dL (74-99); Magnesium 1.5 mg/dL (1.6-2.3); Non-African American GFR(MDRD) >60 (>60 ml/min/1.73 sqM); Potassium 3.2 mmol/L (3.5-5.1); Sodium 142 mmol/L (137-145); Total Bilirubin 1.5 mg/dL (0.2-1.3); Total Protein 7.9 g/dL (6.3-8.2)
--- NOTE | 2016-08-05 16:21 | XR ---
EXAMINATION TYPE: XR chest 2V DATE OF EXAM: 08/05/2016 4:13 PM COMPARISON: 06/24/2016 HISTORY: Short of breath TECHNIQUE: Frontal and lateral views of the chest are obtained. FINDINGS: Heart is enlarged. There is no gross heart failure. Thoracic aorta is atheromatous. There is no sign of pleural effusion. There are no hilar masses. There are chest leads. Bones appear osteop enic. IMPRESSION: Cardiomegaly. There is clearing of the mild pulmonary congestion compared to old exam. N o heart failure seen.
[2016-08-05 16:28] LABS: Creatine Kinase 30 U/L (30-135)
[2016-08-05 16:41] LABS: Creatine Kinase MB 0.4 ng/mL (0.0-2.4); Troponin I <0.012 ng/mL (0.000-0.034)
[2016-08-05] MEDS ORDERED: methylPREDNISolone SOD SUCCI 125 MG/2 ML VIAL IV STA (17:07)
[2016-08-05] MEDS ORDERED: AZITHROMYCIN 500 MG in SODIUM CHLORIDE 0.9% 250 ML IVPB STA (17:07)
[2016-08-05] MEDS ORDERED: ACETAMINOPHEN TAB 325 MG TAB PO PRN (17:09)
[2016-08-05] MEDS ORDERED: IBUPROFEN 800 MG TAB PO PRN (17:09)
[2016-08-05] MEDS: methylPREDNISolone SOD SUCCI 125 MG/2 ML VIAL IV SCH (18:14)
[2016-08-05 18:56] VITALS: BMI 23.4
[2016-08-05] MEDS ORDERED: Magnesium Replacement Protocol 1 EACH MISC MISCELLANE PRN (19:01)
[2016-08-05] MEDS ORDERED: Potassium Replacement Protocol 1 EACH MISC MISCELLANE PRN (19:02)
[2016-08-05] MEDS ORDERED: ALBUTEROL INHALER 60 PUFF/8 GM INHALER INHALATION PRN (19:03)
[2016-08-05] MEDS: IPRATROPIUM 0.5 MG/2.5 ML NEBU INHALATION SCH (19:54)
[2016-08-05] MEDS ORDERED: IPRATROPIUM 0.5 MG/2.5 ML NEBU INHALATION SCH (20:00)
[2016-08-05] MEDS ORDERED: LEVALBUTEROL NEB 1.25 MG/3 ML AMP INHALATION SCH (20:00)
[2016-08-05] MEDS: LEVALBUTEROL NEB (CONC) 1.25 MG/0.5 ML AMP INHALATION SCH (20:21)
[2016-08-05] MEDS: SODIUM CHLORIDE 0.9% 1,000 ML IV SCH (20:27)
[2016-08-05] MEDS: POTASSIUM CHLORIDE ER 20 MEQ TAB.ER PO SCH ×2 (20:28→21:39)
[2016-08-05] MEDS: MAGNESIUM SULFATE-D5W PMX 1 GM in DEXTROSE/WATER 1 100ML.BAG IVPB SCH ×2 (20:28→21:38)
[2016-08-05] MEDS: DICLOFENAC SODIUM GEL 100 GM TUBE TOPICAL SCH (20:29)
[2016-08-05] MEDS: DABIGATRAN 150 MG CAP PO SCH (20:29)
[2016-08-05] MEDS: LISINOPRIL 10 MG TAB PO SCH (20:30)
[2016-08-05] MEDS: VERAPAMIL SR 240 MG TABLET.ER PO SCH (20:30)
[2016-08-05 20:48] LABS: Glucose,Whole Blood 178 mg/dL (75-99)
[2016-08-05] MEDS: INSULIN LISPRO (humaLOG) 300 UNIT/3 ML VIAL SQ SCH (21:38)
[2016-08-05] MEDS: HYDROcodone/APAP 7.5-325MG 1 EACH TAB PO PRN (21:39)
[2016-08-05] MEDS: BACLOFEN 10 MG TAB PO SCH (21:39)
[2016-08-06] MEDS: methylPREDNISolone SOD SUCCI 125 MG/2 ML VIAL IV SCH ×3 (00:21→11:25)
[2016-08-06] MEDS: SODIUM CHLORIDE 0.9% 1,000 ML IV SCH ×3 (05:48→21:12)
[2016-08-06 07:27] LABS: Glucose,Whole Blood 145 mg/dL (75-99)
[2016-08-06] MEDS: INSULIN LISPRO (humaLOG) 300 UNIT/3 ML VIAL SQ SCH ×4 (07:31→21:14)
[2016-08-06] MEDS: IPRATROPIUM 0.5 MG/2.5 ML NEBU INHALATION SCH ×2 (07:40→13:12)
[2016-08-06] MEDS: LEVALBUTEROL NEB (CONC) 1.25 MG/0.5 ML AMP INHALATION SCH ×2 (07:40→13:12)
[2016-08-06 08:22] LABS: ALT 25 U/L (9-52); AST 23 U/L (14-36); Alkaline Phosphatase 80 U/L (38-126); Anion Gap 11 mmol/L; Blood Urea Nitrogen 22 mg/dL (7-17); Calcium 9.3 mg/dL (8.4-10.2); Carbon Dioxide 27 mmol/L (22-30); Chloride 105 mmol/L (98-107); Glucose 172 mg/dL (74-99); Magnesium 2.3 mg/dL (1.6-2.3); Non-African American GFR(MDRD) >60 (>60 ml/min/1.73 sqM); Potassium 3.8 mmol/L (3.5-5.1); Sodium 143 mmol/L (137-145); Total Bilirubin 1.1 mg/dL (0.2-1.3); Total Protein 6.9 g/dL (6.3-8.2)
[2016-08-06] MEDS: PANTOPRAZOLE 40 MG TABLET PO SCH (08:52)
[2016-08-06] MEDS: PRAVASTATIN SODIUM 40 MG TAB PO SCH (08:52)
[2016-08-06] MEDS: VERAPAMIL SR 240 MG TABLET.ER PO SCH ×2 (08:52→21:15)
[2016-08-06] MEDS: DABIGATRAN 150 MG CAP PO SCH ×2 (08:52→21:15)
[2016-08-06] MEDS: LISINOPRIL 10 MG TAB PO SCH ×2 (08:52→21:15)
[2016-08-06] MEDS: BACLOFEN 10 MG TAB PO SCH ×3 (08:52→21:15)
[2016-08-06] MEDS: DICLOFENAC SODIUM GEL 100 GM TUBE TOPICAL SCH ×2 (08:53→21:13)
[2016-08-06] MEDS: HYDROcodone/APAP 7.5-325MG 1 EACH TAB PO PRN ×3 (08:58→22:37)
[2016-08-06] MEDS ORDERED: HYDROCHLOROTHIAZIDE 12.5 MG CAP PO SCH (09:00)
[2016-08-06] MEDS ORDERED: AZITHROMYCIN 500 MG in SODIUM CHLORIDE 0.9% 250 ML IVPB SCH (09:00)
[2016-08-06] MEDS ORDERED: ENOXAPARIN 40 MG/0.4 ML SYRINGE SQ SCH (09:00)
[2016-08-06 10:51] LABS: Hemoglobin A1C 5.4 % (4.2-6.1)
[2016-08-06 11:57] LABS: Glucose,Whole Blood 132 mg/dL (75-99)
[2016-08-06 17:18] LABS: Glucose,Whole Blood 145 mg/dL (75-99)
--- NOTE | 2016-08-06 17:36 | HP ---
DATE OF ADMISSION: 08/05/2016 PRESENTING COMPLAINT: Short of breath, cough. HISTORY OF PRESENTING COMPLAINT: Pleasant 71-year-old patient of Dr. Faizan Estrella whose chronic stable medical conditions include gout, hypertension, osteoarthritis. Patient also has a history of hypertension, hyperlipidemia, peptic ulcer, atrial fibrillation. Patient presents with one week of increasing cough, sputum, not able to bring it up, though she swallows it, fever, wheezing, decreased appetite, feeling rundown; admitted for the same. REVIEW OF SYSTEMS: CONSTITUTIONAL: Tired. HEENT: None. RESPIRATORY: As above. CARDIOVASCULAR: None. GASTROINTESTINAL: Heartburn. GENITOURINARY: None. MUSCULOSKELETAL: Pain in the joints. DERMATOLOGICAL: None. HEMATOLOGICAL: None. LYMPHATICS: None. PSYCHIATRY: None. NEUROLOGICAL: None. PAST HISTORY: 1. Atrial fibrillation. 2. Asthma. 3. GERD. 4. GI bleed. 5. Hyperlipidemia. 6. Hypertension. 7. Osteoarthritis. 8. Varicose veins. 9. Stomach ulcer. PAST SURGICAL HISTORY: 1. Adenoidectomy. 2. Appendectomy. 3. Cardiac catheterization. 4. Hysterectomy. 5. Tonsillectomy. 6. Tubal ligation. 7. Bilateral cataracts. SOCIAL HISTORY: Patient lives by herself. Visited by her granddaughter daily. No smoking. No alcohol. FAMILY HISTORY: Emphysema. HOME MEDICATIONS: 1. Atrovent HFA 2 puffs b.i.d. 2. Verapamil ER 240 mg p.o. b.i.d. 3. Pravachol 40 mg p.o. daily. 4. Prilosec 20 mg p.o. daily. 5. Univasc 7.5 p.o. b.i.d. 6. [place] 7.5 one tablet q.i.d. p.r.n. 7. Hydrochlorothiazide 12.5 p.o. daily. 8. Motrin gel 2 grams topically b.i.d. 9. Pradaxa 150 mg p.o. b.i.d. 10. Baclofen 10 mg p.o. t.i.d. 11. Ventolin 2 puffs q.4 p.r.n. ALLERGIES: NONE. PHYSICAL EXAMINATION: VITAL SIGNS ON PRESENTATION: Temperature 100.7, pulse 108, respiration 18, blood pressure 138/84, pulse ox 95% on room air. GENERAL APPEARANCE: Thin build. Sitting up. Tired-appearing. EYES: Pupils equal. Conjunctivae normal. HEENT: Oral cavity normal. NECK: JVD not raised. Mass not palpable. RESPIRATORY: Effort increased. LUNGS: Decreased breath sounds with expiratory wheezing, some right-sided crackles. CARDIOVASCULAR: First and second sounds normal. No edema. ABDOMEN: Soft, nontender. Liver and spleen not palpable. LYMPHATIC: No lymph node palpable in neck or axillae. PSYCHIATRY: Alert and oriented x3. Mood and affect normal. NEUROLOGICAL: Pupils equal. Cranial nerves grossly intact. Power and sensation grossly intact. MUSCULOSKELETAL: Evidence of erythema, osteoarthritis in multiple joints. INVESTIGATIONS: White count 9.9, hemoglobin 15.2. Potassium 3.2. BUN 21, creatinine 0.7. Chest x-ray reviewed by me shows possible infiltrate in right lower lobe. ASSESSMENT: 1. Right lower lobe pneumonia; suspect Gram-negative organism, present on admission, causing a sepsis-like picture. 2. Acute exacerbation of mild persistent asthma. 3. Paroxysmal atrial fibrillation, currently in sinus rhythm. 4. Gastroesophageal reflux disease. 5. Hyperlipidemia. 6. Essential hypertension. 7. Primary osteoarthritis of multiple joints bilaterally. Patient has been put on IV fluids, IV antibiotics. Put the patient on bronchodilators, Solu-Medrol. Home medications will be resumed. Care was discussed with the patient. Patient is already responding to bronchodilators. Encouraged to ambulate.
[2016-08-06] MEDS: IPRATROPIUM-ALBUTEROL 3 ML NEB INHALATION SCH ×2 (20:08→23:29)
[2016-08-06 20:40] LABS: Glucose,Whole Blood 124 mg/dL (75-99)
[2016-08-06] MEDS: guaiFENesin 600 MG TABLET.ER PO SCH (21:14)
[2016-08-06] MEDS: LATANOPROST 0.005% OPHTH DROPS 2.5 ML BTL BOTH EYES SCH (22:32)
[2016-08-06] MEDS: methylPREDNISolone SOD SUCCI 40 MG/ML 1 ML VIAL IV SCH (23:04)
[2016-08-07] MEDS: IPRATROPIUM-ALBUTEROL 3 ML NEB INHALATION SCH ×4 (03:32→15:12)
[2016-08-07] MEDS: SODIUM CHLORIDE 0.9% 1,000 ML IV SCH ×3 (05:49→18:51)
[2016-08-07] MEDS: PANTOPRAZOLE 40 MG TABLET PO SCH (07:27)
[2016-08-07] MEDS: INSULIN LISPRO (humaLOG) 300 UNIT/3 ML VIAL SQ SCH ×4 (07:27→23:51)
[2016-08-07] MEDS: methylPREDNISolone SOD SUCCI 40 MG/ML 1 ML VIAL IV SCH ×3 (07:28→23:52)
[2016-08-07] MEDS: HYDROcodone/APAP 7.5-325MG 1 EACH TAB PO PRN ×2 (07:32→16:18)
[2016-08-07] MEDS: BACLOFEN 10 MG TAB PO SCH ×3 (07:34→23:52)
[2016-08-07 07:45] LABS: Glucose,Whole Blood 141 mg/dL (75-99)
[2016-08-07] MEDS: LISINOPRIL 10 MG TAB PO SCH ×2 (08:28→23:52)
[2016-08-07] MEDS: PRAVASTATIN SODIUM 40 MG TAB PO SCH (08:28)
[2016-08-07] MEDS: guaiFENesin 600 MG TABLET.ER PO SCH ×2 (08:28→23:50)
[2016-08-07] MEDS: DABIGATRAN 150 MG CAP PO SCH ×2 (08:28→23:50)
[2016-08-07] MEDS: VERAPAMIL SR 240 MG TABLET.ER PO SCH ×2 (08:28→23:52)
[2016-08-07] MEDS: DICLOFENAC SODIUM GEL 100 GM TUBE TOPICAL SCH (08:28)
[2016-08-07] MEDS: AZITHROMYCIN 500 MG TAB PO SCH (08:28)
[2016-08-07 09:47] LABS: CH 33.4; CHCM 32.8; HCT 41.3 % (34.0-46.0); HDW 2.45; HGB 13.4 gm/dL (11.4-16.0); MCH 33.1 pg (25.0-35.0); MCHC 32.4 g/dL (31.0-37.0); MCV 102.4 fL (80.0-100.0); Macrocytosis Slight; Mean Platelet Volume 8.3; RBC 4.04 m/uL (3.80-5.40); RDW 14.7 % (11.5-15.5); WBC (Perox) 30.06
[2016-08-07 11:48] LABS: Anion Gap 10 mmol/L; Blood Urea Nitrogen 25 mg/dL (7-17); Calcium 8.4 mg/dL (8.4-10.2); Carbon Dioxide 25 mmol/L (22-30); Chloride 109 mmol/L (98-107); Glucose 119 mg/dL (74-99); Non-African American GFR(MDRD) >60 (>60 ml/min/1.73 sqM); Potassium 3.3 mmol/L (3.5-5.1); Sodium 144 mmol/L (137-145)
[2016-08-07 12:23] LABS: Glucose,Whole Blood 108 mg/dL (75-99)
[2016-08-07 13:51] LABS: Add Differential Manual Differential
[2016-08-07 13:52] LABS: Nucleated Red Blood Cells 0 /100 WBC (0-0); Total Cells Counted 100
[2016-08-07] MEDS ORDERED: Potassium Replacement Protocol 1 EACH MISC MISCELLANE PRN ×2 (16:51→17:01)
[2016-08-07 16:56] LABS: Glucose,Whole Blood 127 mg/dL (75-99)
[2016-08-07] MEDS ORDERED: POTASSIUM CHLORIDE 10 MEQ, LIDOCAINE 2% INJ 10 MG in SODIUM CHLORIDE 0.9% 100 ML IV SCH (17:00)
[2016-08-07] MEDS: POTASSIUM CHLORIDE ER 20 MEQ TAB.ER PO SCH ×2 (17:40→18:50)
[2016-08-07] MEDS: LEVALBUTEROL NEB 1.25 MG/3 ML AMP INHALATION SCH (19:57)
[2016-08-07 20:52] LABS: Glucose,Whole Blood 163 mg/dL (75-99)
[2016-08-07] MEDS: LATANOPROST 0.005% OPHTH DROPS 2.5 ML BTL BOTH EYES SCH (23:51)
[2016-08-08 06:09] LABS: Glucose,Whole Blood 130 mg/dL (75-99)
[2016-08-08] MEDS: DICLOFENAC SODIUM GEL 100 GM TUBE TOPICAL SCH ×2 (06:26→08:56)
[2016-08-08] MEDS: SODIUM CHLORIDE 0.9% 1,000 ML IV SCH ×2 (06:27→16:46)
[2016-08-08] MEDS: INSULIN LISPRO (humaLOG) 300 UNIT/3 ML VIAL SQ SCH ×3 (06:29→18:28)
[2016-08-08] MEDS: PANTOPRAZOLE 40 MG TABLET PO SCH (06:30)
--- NOTE | 2016-08-08 07:14 | PN ---
DATE OF SERVICE: 08/07/2016 PRESENTING COMPLAINT: Heart racing. INTERVAL HISTORY: This is a patient admitted with pneumonia and exacerbation of asthma. Breathing is much better, less wheezing. Diet is better. Cough is improving. Patient had some palpitations. Telemetry shows atrial fibrillation with rapid ventricular rate up to about 120's. Review of systems done for constitutional, cardiovascular, GI, pulmonary; relevant findings as above. Current medications include nebulized bronchodilators and steroids. On examination, temperature 97.4, pulse 120, respirations 16, blood pressure 115/65, pulse ox 97% on room air. GENERAL APPEARANCE: Sitting up, not in distress. EYES: Pupils equal. Conjunctivae normal. NECK: JVD not raised. Mass not palpable. Respiratory effort normal. LUNGS: Improved air entry. CARDIOVASCULAR: Heart sounds irregular, edema. ABDOMEN: Soft, nontender. PSYCHIATRY: Alert and oriented x3. Mood and affect normal. INVESTIGATIONS: Potassium 3.3; repeat is 4. Accu-Cheks are noted. Telemetry shows A. fib with rapid ventricular rate. ASSESSMENT: 1. Atrial fibrillation with rapid ventricular rate. Patient has a history of atrial fibrillation, paroxysmal the past, patient is on albuterol that could be precipitating the same. 2. Right lobe pneumonia, suspect gram-negative organism, present on admission causing sepsis-like picture, now improved. 3. Acute exacerbation of mild persistent asthma, improved. 4. Gastroesophageal reflux disease. 5. Hyperlipidemia. 6. Essential hypertension. 7. 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 PLAN: Will discontinue patient's albuterol, change to Atrovent and use Xopenex p.r.n. Patient with be transferred to telemetry for closer monitoring and Cardiology is consulted. Care was discussed with the patient.
[2016-08-08] MEDS ORDERED: TIOTROPIUM 18 MCG/PUFF INHALER INHALATION SCH (08:00)
[2016-08-08] MEDS: LEVALBUTEROL NEB 1.25 MG/3 ML AMP INHALATION SCH ×2 (08:29→14:03)
[2016-08-08] MEDS: guaiFENesin 600 MG TABLET.ER PO SCH (08:55)
[2016-08-08] MEDS: DABIGATRAN 150 MG CAP PO SCH (08:55)
[2016-08-08] MEDS: BACLOFEN 10 MG TAB PO SCH ×2 (08:55→16:45)
[2016-08-08] MEDS: AZITHROMYCIN 500 MG TAB PO SCH (08:55)
[2016-08-08] MEDS: VERAPAMIL SR 240 MG TABLET.ER PO SCH (08:55)
[2016-08-08] MEDS: LISINOPRIL 10 MG TAB PO SCH (08:55)
[2016-08-08] MEDS: methylPREDNISolone SOD SUCCI 40 MG/ML 1 ML VIAL IV SCH ×2 (08:56→16:45)
[2016-08-08] MEDS: PRAVASTATIN SODIUM 40 MG TAB PO SCH (08:56)
[2016-08-08] MEDS: HYDROcodone/APAP 7.5-325MG 1 EACH TAB PO PRN ×2 (09:01→16:44)
[2016-08-08 11:51] LABS: Glucose,Whole Blood 109 mg/dL (75-99)
--- NOTE | 2016-08-08 11:59 | P.CRDCN ---
History of Present Illness Consult date: 08/08/16 Requesting physician: Jovani Pelaez Reason for Consult (text): Tachycardia Chief complaint: Cough, shortness of breath, and fever. History of present illness: This is a pleasant 71-year-old female with known history of hypertension, hyperlipidemia, rapid irregular heartbeat, possible prior atrial fibrillation, asthma, who presents to the hospital with symptoms of increased cough and congestion, shortness of breath, and fevers. Patient had a recent admission in April of this year with acute bronchitis, in February of last year exacerbation of asthma with associated bronchitis. Chest x-ray on this admission showed cardiomegaly, with clearing of mild pulmonary congestion compared to old exam. No congestive heart failure. EKG on admission shows sinus tachycardia with PACs and PVCs. Temperature on arrival 100.7, blood pressure on arrival 138/80, heart rate 108. 95% on room air. Laboratory data, WBC on admission 19.9, 29 this morning, K+4.0. On admission the patient's potassium was 3.2. Magnesium level on admission 1.5, 2.3 this morning. Troponin 0.012. There is no flu screen performed. Patient is currently being treated with IV prednisone along with IV antibiotics. Patient is currently in a normal sinus rhythm with a heart rate of 78. Past Medical History Past Medical History: Atrial Fibrillation, Asthma, GERD/Reflux, GI Bleed, Hyperlipidemia, Hypertension, Osteoarthritis (OA), Pneumonia, Syncope Additional Past Medical History / Comment(s): DJD, VARICOSE VEINS, BRONCHITIS, GLAUCOMA, stomach ULCER, constipation History of Any Multi-Drug Resistant Organisms: None Reported Past Surgical History: Adenoidectomy, Appendectomy, Heart Catheterization, Hysterectomy, Tonsillectomy, Tubal Ligation Additional Past Surgical History / Comment(s): BILLY CATARACTS REMOVED Past Anesthesia/Blood Transfusion Reactions: No Reported Reaction Past Psychological History: No Psychological Hx Reported Additional Psychological History / Comment(s): PT LIVES AL[place] IN [place] HER GRANDDAUGHTER KVNG VISITS DAILY. Smoking Status: Never smoker Past Alcohol Use History: None Reported Past Drug Use History: None Reported - Past Family History Father Family Medical History: COPD Additional Family Medical History / Comment(s): EMPHYSEMA Mother Family Medical History: Diabetes Mellitus, Osteoarthritis (OA) Additional Family Medical History / Comment(s): EMPHYSEMA, BOWEL OBSTRUCTION/ COLOSTOMY Medications and Allergies Home Medications Medication Instructions Recorded Confirmed Type Hydrochlorothiazide [Hydrodiuril] 12.5 mg PO QAM 10/13/13 08/05/16 History Albuterol Inhaler [Ventolin Hfa 2 puff INHALATION RT-Q4H PRN 07/20/15 08/05/16 History Inhaler] Baclofen [Lioresal] 10 mg PO TID 07/20/15 08/05/16 History Dabigatran [Pradaxa] 150 mg PO BID 07/20/15 08/05/16 History Hydrocodone/Acetaminophen [[place] 1 tab PO QID PRN 07/20/15 08/05/16 History 7.5-325] Moexipril [Univasc] 7.5 mg PO BID 07/20/15 08/05/16 History Pravastatin Sodium [Pravachol] 40 mg PO DAILY 07/20/15 08/05/16 History Diclofenac Sodium [Voltaren Gel] 2 gram TOPICAL BID 03/14/16 08/05/16 History Verapamil HCl [Verapamil ER] 240 mg PO BID 04/11/16 08/05/16 History Ipratropium [place] [Atrovent Hfa] 2 puff INHALATION RT-BID 08/05/16 08/05/16 History Allergies Allergy/AdvReac Type Severity Reaction Status Date / Time No Known Allergies Allergy Verified 08/05/16 15:45 Physical Exam Vitals: Vital Signs Temp Pulse Pulse Resp BP Pulse Ox 08/08/16 08:40 78 08/08/16 08:30 78 08/08/16 08:00 97.6 F 98 18 142/64 94 L 08/08/16 06:24 97.8 F 87 18 144/68 95 08/08/16 04:00 19 08/08/16 00:00 99.2 F 94 18 166/73 08/07/16 20:10 88 08/07/16 20:00 98.5 F 88 87 18 95 08/07/16 17:31 101 H 19 143/66 97 08/07/16 15:00 97.4 F L 108 H 16 151/65 97 08/07/16 12:48 126 H 126/60 08/07/16 12:18 75 08/07/16 12:07 76 Intake and Output 08/07/16 08/08/16 08/08/16 22:59 06:59 14:59 Intake Total 400 250 Output Total 350 Balance 400 -100 Intake: Intake, IV Titration 400 250 Amount Sodium Chloride 0.9% 1, 400 000 ml @ 100 mls/hr IV . Q10H RIGOBERTO Rx#:[id number] Sodium Chloride 0.9% 1, 200 000 ml @ 100 mls/hr IV . Q10H RIGOBERTO Rx#:[id number] cefTRIAXone 1,000 mg In 50 Sodium Chloride 0.9% 50 ml @ 100 mls/hr IVPB Q24H RIGOBERTO Rx#:[id number] Output: Urine 350 Other: Voiding Method Toilet Toilet # Voids 2 1 Weight 59.6 kg PHYSICAL EXAMINATION: HEENT: Head is atraumatic, normocephalic. Pupils equal, round. Neck is supple. There is no elevated jugular venous pressure. HEART EXAMINATION: Heart S1, S2 normal. No murmur or gallop heard. CHEST EXAMINATION: Lungs reveal decreased air exchange with scattered wheezing throughout. ABDOMEN: Soft, nontender. Bowel sounds are heard. No organomegaly noted. EXTREMITIES: 2+ peripheral pulses with no evidence of peripheral edema and no calf tenderness noted. NEUROLOGIC patient is awake, alert and oriented -3. . Results 08/07/16 08:51 08/07/16 20:11 Comprehensive Metabolic Panel 08/07/16 08/07/16 Range/Units 11:05 20:11 Sodium 144 (137-145) mmol/L Potassium 3.3 L 4.0 (3.5-5.1) mmol/L Chloride 109 H (98-107) mmol/L Carbon Dioxide 25 (22-30) mmol/L BUN 25 H (7-17) mg/dL Creatinine 0.73 (0.52-1.04) mg/dL Glucose 119 H (74-99) mg/dL Calcium 8.4 (8.4-10.2) mg/dL Current Medications Generic Name Dose Route Start Last Admin Trade Name Freq PRN Reason Stop Dose Admin Acetaminophen 650 mg 08/05/16 17:09 Tylenol Tab PO Q6HR PRN Fever and/ or mild Pain Hydrocodone Bitart/Acetaminophen 1 each 08/05/16 19:03 08/08/16 09:01 [place] 7.5-325 PO 1 each QID PRN Administration Pain Azithromycin 500 mg 08/07/16 09:00 08/08/16 08:55 Zithromax PO 500 mg DAILY RIGOBERTO Administration Baclofen 10 mg 08/05/16 22:00 08/08/16 08:55 Lioresal PO 10 mg TID RIGOBERTO Administration Dabigatran 150 mg 08/05/16 21:00 08/08/16 08:55 Pradaxa PO 150 mg BID RIGOBERTO Administration Diclofenac Sodium 2 gm 08/05/16 21:00 08/08/16 08:56 Voltaren Gel TOPICAL Not Given BID RIGOBERTO Guaifenesin 1,200 mg 08/06/16 21:00 08/08/16 08:55 Mucinex PO 1,200 mg Q12HR RIGOBERTO Administration Ceftriaxone Sodium 1,000 mg/ 50 mls @ 100 mls/hr 08/06/16 18:00 08/07/16 18: 22 Sodium Chloride IVPB 100 mls/hr Q24H RIGOBERTO Administration Sodium Chloride 1,000 mls @ 100 mls/hr 08/07/16 18:45 08/08/16 06:27 Saline 0.9% IV 100 mls/hr .Q10H RIGOBERTO Administration Ibuprofen 800 mg 08/05/16 17:09 Motrin PO QID PRN Pain Insulin Human Lispro 0 unit 08/05/16 21:00 08/08/16 06:29 Humalog SQ Not Given ACHS [facility] Protocol Latanoprost 1 drops 08/06/16 22:00 08/07/16 23:51 Xalatan 0.005% BOTH EYES 1 drops HS RIGOBERTO Administration Levalbuterol HCl 1.25 mg 08/07/16 20:00 08/08/16 08:29 Xopenex Nebulized INHALATION 1.25 mg RT-TID RIGOBERTO Administration Lisinopril 10 mg 08/05/16 21:00 08/08/16 08:55 Zestril PO 10 mg BID RIGOBERTO Administration Methylprednisolone Sodium Succinate 40 mg 08/07/16 00:00 08/08/16 08:56 Solu-Medrol IV 40 mg Q8HR RIGOBERTO Administration Miscellaneous Information 1 each 08/05/16 19:01 Magnesium Per Protocol MISCELLANE DAILY PRN Per Protocol Protocol Miscellaneous Information 1 each 08/07/16 17:01 Potassium Per Protocol MISCELLANE DAILY PRN Per Protocol Protocol Pantoprazole Sodium 40 mg 08/06/16 07:30 08/08/16 06:30 Protonix PO 40 mg [id number] RIGOBERTO Administration Pravastatin Sodium 40 mg 08/06/16 09:00 08/08/16 08:56 Pravachol PO 40 mg DAILY RIGOBERTO Administration Tiotropium [place] 1 puff 08/08/16 08:00 08/08/16 08:29 Spiriva INHALATION 1 puff RT-DAILY RIGOBERTO Administration Verapamil HCl 240 mg 08/05/16 21:00 08/08/16 08:55 Isoptin Sr PO 240 mg BID RIGOBERTO Administration Intake and Output 08/07/16 08/08/16 08/08/16 22:59 06:59 14:59 Intake Total 400 250 Output Total 350 Balance 400 -100 Intake: Intake, IV Titration 400 250 Amount Sodium Chloride 0.9% 1, 400 000 ml @ 100 mls/hr IV . Q10H RIGOBERTO Rx#:[id number] Sodium Chloride 0.9% 1, 200 000 ml @ 100 mls/hr IV . Q10H RIGOBERTO Rx#:[id number] cefTRIAXone 1,000 mg In 50 Sodium Chloride 0.9% 50 ml @ 100 mls/hr IVPB Q24H RIGOBERTO Rx#:[id number] Output: Urine 350 Other: Voiding Method Toilet Toilet # Voids 2 1 Weight 59.6 kg 08/07/16 20:11 EKG Interpretations (text) EKG shows sinus tachycardia with occasional PACs and PVCs. Assessment and Plan Plan: Assessment and plan #1 exacerbation of asthma with acute bronchitis, febrile #2 tachycardia, appears to be sinus tachycardia with PACs and PVCs, possible MAT. #3 questionable history of paroxysmal atrial fibrillation, on Pradaxa #4 hypertension #5 hyperlipidemia #6 hypokalemia and hypomagnesemia, replaced. Plan Echocardiogram with Doppler study performed in February revealed normal left ventricular systolic function, we'll repeat an echo on this admission. Check free T4 and TSH level. Take flu swab. Patient's tachycardia is likely in response to acute exacerbation of bronchitis. Currently in normal sinus rhythm with a heart rate in the 70s. Continue verapamil. Further recommendations to follow. DNP note has been reviewed, I agree with a documented findings and plan of care. Patient was seen and examined.
[2016-08-08 13:18] VITALS: RESP 17
[2016-08-08 16:44] VITALS: BP 141/66; PULSE 89; TEMP 97
[2016-08-08 17:08] LABS: Glucose,Whole Blood 142 mg/dL (75-99)
--- NOTE | 2016-08-09 09:31 | ECHOF ---
Referral Reason:tachycardia MEASUREMENTS -------- HEIGHT: 154.9 cm WEIGHT: 59.4 kg BP: 142/64 RVIDd: 2.1 cm (< 3.3) IVSd: 1.2 cm (0.6 - 1.1) LVIDd: 3.9 cm (3.9 - 5.3) LVPWd: 1.2 cm (0.6 - 1.1) IVSs: 1.5 cm LVIDs: 3.0 cm LVPWs: 1.6 cm LA Diam: 2.6 cm (2.7 - 3.8) LAESV Index (A-L): 19.87 ml/m Ao Diam: 2.9 cm (2.0 - 3.7) AV Cusp: 1.5 cm (1.5 - 2.6) LA Diam: 2.6 cm (2.7 - 3.8) MV EXCURSION: 12.755 mm (> 18.000) MV EF SLOPE: 72 mm/s (70 - 150) EPSS: 0.5 cm MV E Lauri: 1.04 m/s MV DecT: 149 ms MV A Lauri: 1.14 m/s MV E/A Ratio: 0.91 RAP: 5.00 mmHg RVSP: 24.76 mmHg FINDINGS -------- Sinus rhythm. This was a technically good study. There is borderline concentric left ventricular hypertrophy. Overall left ventricular systolic function is normal with, an EF between 55 - 60 %. The right ventricle is normal in size. Normal LA size by volume 22+/-6 ml/m2. The right atrium is normal in size. Aortic valve is trileaflet and is mildly thickened. The mitral valve leaflets are mildly thickened. Mild mitral annular calcification present. Mild mitral regurgitation is present. Mild tricuspid regurgitation present. The right ventricular systolic pressure, as measured by Doppler, is 24.76mmHg. Trace/mild (physiologic) pulmonic regurgitation. The aortic root size is normal. Normal inferior vena cava with normal inspiratory collapse consistent with estimated right atrial pressure of 5 mmHg. Echo free space may represent effusion or a pericardial fat pad. CONCLUSIONS -------- 1. Sinus rhythm. 2. Mild mitral annular calcification present. 3. Mild mitral regurgitation is present. 4. Mild tricuspid regurgitation present. 5. The right ventricular systolic pressure, as measured by Doppler, is 24.76mmHg. 6. Trace/mild (physiologic) pulmonic regurgitation. 7. The aortic root size is normal. 8. Normal inferior vena cava with normal inspiratory collapse consistent with estimated right atrial pressure of 5 mmHg. 9. Echo free space may represent effusion or a pericardial fat pad. 10. This was a technically good study. 11. There is borderline concentric left ventricular hypertrophy. 12. Overall left ventricular systolic function is normal with, an EF between 55 - 60 %. 13. The right ventricle is normal in size. 14. Normal LA size by volume 22+/-6 ml/m2. 15. The right atrium is normal in size. 16. Aortic valve is trileaflet and is mildly thickened. 17. The mitral valve leaflets are mildly thickened. TECHNICAL DEVELOPER: Kameron Walton RDCS
--- NOTE | 2016-08-09 11:08 | DS ---
DATE OF ADMISSION: 08/07/2016 DATE OF DISCHARGE: 08/08/2016 FINAL DIAGNOSES: 1. Right lower lobe pneumonia, suspect gram-negative organism, present on admission causing sepsis-like picture. 2. Acute exacerbation of mild persistent asthma, present at admission. 3. Gastroesophageal reflux disease. 4. Hyperlipidemia. 5. Essential hypertension. 6. 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 7. Paroxysmal atrial fibrillation with an episode of rapid ventricular rate, probably from bronchodilators. HOSPITAL COURSE: This patient admitted with pneumonia exacerbation and asthma exacerbation, doing much better, then went into A. fib with rapid ventricular rate. Patient was changed from albuterol to Xopenex, did well, back in sinus rhythm. CONSULTATION: Dr. Palma. DISCHARGE MEDICATIONS: 1. Prilosec 20 mg before breakfast. 2. Ventolin HFA 2 puffs q.4 p.r.n. 3. Baclofen 10 mg p.o. t.i.d. 4. Pradaxa 150 mg p.o. b.i.d. 5. [place] 7.5 one tablet q.i.d. p.r.n. 6. Univasc 7.5 p.o. b.i.d. 7. Pravachol 40 mg q.h.s. 8. Warfarin gel 2 gm topical b.i.d. 9. Verapamil ER 240 mg p.o. b.i.d. 10. Atrovent HFA 2 puffs b.i.d. 11. Ceftin 500 mg p.o. b.i.d. 6 tablets. 12. Prednisone taper. Follow Dr. Estrella in one week. On exam, lungs improved air entry. CARDIOVASCULAR: First and second seconds are normal. DC planning more than 35 minutes.
== END 2016-08-08 19:00 | disposition home or self-care (01) | DRG 871 ==
LOC: EC 14:54 → 4MS4W 17:08 → OBSVTOIN 08-07 08:53 → 6SEL 08-07 15:49
PROVIDERS: ADMIT Hospitalist; ATTEND Hospitalist
DX: A41.9 Sepsis, unspecified organism (principal); J15.6 Pneumonia due to other Gram-negative bacteria; J45.31 Mild persistent asthma with (acute) exacerbation; I48.0 Paroxysmal atrial fibrillation; I11.9 Hypertensive heart disease without heart failure; E83.42 Hypomagnesemia; K21.9 Gastro-esophageal reflux disease without esophagitis; E78.5 Hyperlipidemia, unspecified; E87.6 Hypokalemia; H40.9 Unspecified glaucoma; J20.9 Acute bronchitis, unspecified; M10.9 Gout, unspecified; M15.9 Polyosteoarthritis, unspecified; I83.90 Asymptomatic varicose veins of unspecified lower extremity; K57.90 Diverticulosis of intestine, part unspecified, without perforation or abscess without bleeding; I49.1 Atrial premature depolarization; I49.3 Ventricular premature depolarization; Z79.01 Long term (current) use of anticoagulants; Z79.899 Other long term (current) drug therapy; Z79.52 Long term (current) use of systemic steroids
CPT/HCPCS: 36415; 71020; 80048; 80053; 82550; 82553; 83036; 83735; 83880; 84132; 84484; 85025; 85610; 85730; 87040; 87502; 93005; 93306; 94640; 94760; 96361; 96365; 96366; 96367; 96375; 96376; 99285

== ENCOUNTER 2016-10-15 17:53 | Emergency (ER) | payer MEDICARE, OTHER ==
[2016-10-15] MEDS ORDERED: SODIUM CHLORIDE 0.9% 1,000 ML IV STA (18:22)
--- NOTE | 2016-10-15 18:51 | ED ---
Nausea/Vomiting/Diarrhea HPI - General Chief complaint: Nausea/Vomiting/Diarrhea Stated complaint: diarrhea Time Seen by Provider: 10/15/16 18:14 Source: patient, family, RN notes reviewed Mode of arrival: ambulatory Limitations: no limitations - History of Present Illness Initial comments: This is a 71-year-old female presents emergency Department with chief complaint of nausea vomiting diarrhea. Patient states she's had diarrhea for last 7 days. Patient states is progressively getting worse. Patient states she has recurrent diverticulitis and out with her foul-smelling very loose watery diarrhea she was having another bout. Patient states she has antibiotics that she is told to take when she states that his symptoms. She states she's had taken his though it made her nauseated and had sat some vomiting last day or 2. Patient states that she is losing weight and very dehydrated feeling. Patient denies any chest pain, shortness breath, fever, chills. Denies any dysuria or hematuria. - Related Data Home Medications Medication Instructions Recorded Confirmed Albuterol Inhaler [Ventolin Hfa 2 puff INHALATION RT-Q4H PRN 07/20/15 10/15/16 Inhaler] Baclofen [Lioresal] 5 mg PO TID 07/20/15 10/15/16 Dabigatran [Pradaxa] 150 mg PO BID 07/20/15 10/15/16 Hydrocodone/Acetaminophen [[place] 1 tab PO QID PRN 07/20/15 10/15/16 7.5-325] Moexipril [Univasc] 7.5 mg PO BID 07/20/15 10/15/16 Pravastatin Sodium [Pravachol] 40 mg PO DAILY 07/20/15 10/15/16 Diclofenac Sodium [Voltaren Gel] 2 gram TOPICAL BID 03/14/16 10/15/16 Verapamil HCl [Verapamil ER] 240 mg PO BID 04/11/16 10/15/16 Ipratropium [place] [Atrovent Hfa] 2 puff INHALATION RT-BID 08/05/16 10/15/16 Hydrochlorothiazide 12.5 mg PO DAILY 10/15/16 10/15/16 Latanoprost [Xalatan 0.005%] 1 drop BOTH EYES HS 10/15/16 10/15/16 Nadolol 40 mg PO DAILY 10/15/16 10/15/16 Previous Rx's Medication Instructions Recorded Ciprofloxacin HCl [Cipro] 500 mg PO Q12HR #14 tablet 10/15/16 Ondansetron Odt [Zofran Odt] 4 mg PO Q8HR PRN #10 tab 10/15/16 Allergies Allergy/AdvReac Type Severity Reaction Status Date / Time No Known Allergies Allergy Verified 10/15/16 18:34 Review of Systems ROS Statement: Those systems with pertinent positive or pertinent negative responses have been documented in the HPI. ROS Other: All systems not noted in ROS Statement are negative. Past Medical History Past Medical History: Atrial Fibrillation, Asthma, GERD/Reflux, GI Bleed, Hyperlipidemia, Hypertension, Osteoarthritis (OA), Pneumonia, Syncope Additional Past Medical History / Comment(s): DJD, VARICOSE VEINS, BRONCHITIS, GLaUCOMA, stomach ULCER,DIVERTICULITIS,constipation History of Any Multi-Drug Resistant Organisms: None Reported Past Surgical History: Adenoidectomy, Appendectomy, Heart Catheterization, Hysterectomy, Tonsillectomy, Tubal Ligation Additional Past Surgical History / Comment(s): BILLY CATARACTS. Past Anesthesia/Blood Transfusion Reactions: No Reported Reaction Past Psychological History: No Psychological Hx Reported Smoking Status: Never smoker Past Alcohol Use History: None Reported Past Drug Use History: None Reported - Past Family History Father Family Medical History: COPD Additional Family Medical History / Comment(s): EMPHYSEMA Mother Family Medical History: Diabetes Mellitus, Osteoarthritis (OA) Additional Family Medical History / Comment(s): EMPHYSEMA, BOWEL OBSTRUCTION/ COLOSTOMY General Exam Limitations: no limitations General appearance: alert, in no apparent distress Respiratory exam: Present: normal lung sounds bilaterally. Absent: respiratory distress, wheezes, rales, rhonchi, stridor Cardiovascular Exam: Present: regular rate, normal rhythm, normal heart sounds. Absent: systolic murmur, diastolic murmur, rubs, gallop, clicks GI/Abdominal exam: Present: soft, normal bowel sounds. Absent: distended, tenderness, guarding, rebound, rigid Back exam: Absent: CVA tenderness (R), CVA tenderness (L) Neurological exam: Present: alert, oriented X3, CN II-XII intact Skin exam: Present: warm, dry, intact, normal color. Absent: rash Course Vital Signs 10/15/16 10/15/16 10/15/16 17:57 18:35 19:16 Temperature 97.8 F 98.1 F Pulse Rate 72 64 68 Respiratory 20 18 16 Rate Blood Pressure 145/68 148/72 155/67 O2 Sat by Pulse 98 94 L 98 Oximetry Medical Decision Making - Medical Decision Making 71-year-old female presented for nausea vomiting diarrhea. Patient unable to provide stool sample at this time she'll be given prescription for stool studies. Patient's does have urinary tract infection in which she'll be placed on ciprofloxacin. Patient we given Zofran for her nausea. Patient didn't show mild signs of dehydration was hydrated here states that she does feel better. We discussed return parameters. - Lab Data Result diagrams: 10/15/16 18:45 10/15/16 18:45 Lab Results 10/15/16 10/15/16 10/15/16 Range/Units 18:45 18:45 18:45 WBC 8.2 (3.8-10.6) k/uL RBC 4.60 (3.80-5.40) m/uL Hgb 15.3 (11.4-16.0) gm/dL Hct 47.2 H (34.0-46.0) % MCV 102.7 H (80.0-100.0) fL MCH 33.4 (25.0-35.0) pg MCHC 32.5 (31.0-37.0) g/dL RDW 13.3 (11.5-15.5) % Plt Count 224 (150-450) k/uL Neutrophils % 42 % Lymphocytes % 30 % Monocytes % 7 % Eosinophils % 17 % Basophils % 1 % Neutrophils # 3.5 (1.3-7.7) k/uL Lymphocytes # 2.5 (1.0-4.8) k/uL Monocytes # 0.5 (0-1.0) k/uL Eosinophils # 1.4 H (0-0.7) k/uL Basophils # 0.1 (0-0.2) k/uL Macrocytosis Slight Sodium 142 (137-145) mmol/L Potassium 3.7 (3.5-5.1) mmol/L Chloride 101 (98-107) mmol/L Carbon Dioxide 31 H (22-30) mmol/L Anion Gap 10 mmol/L BUN 35 H (7-17) mg/dL Creatinine 1.09 H (0.52-1.04) mg/dL Est GFR (MDRD) Af Amer 60 (>60 ml/min/1.73 sqM) Est GFR (MDRD) Non-Af 49 (>60 ml/min/1.73 sqM) Glucose 115 H (74-99) mg/dL Calcium 10.1 (8.4-10.2) mg/dL Total Bilirubin 0.9 (0.2-1.3) mg/dL AST 38 H (14-36) U/L ALT 28 (9-52) U/L Alkaline Phosphatase 85 (38-126) U/L Total Protein 6.8 (6.3-8.2) g/dL Albumin 3.9 (3.5-5.0) g/dL Amylase 45 (30-110) U/L Lipase 184 (23-300) U/L Urine Color Yellow Urine Appearance Cloudy H (Clear) Urine pH 5.5 (5.0-8.0) Ur Specific [place] 1.024 (1.001-1.035) Urine Protein 1+ H (Negative) Urine Glucose (UA) Negative (Negative) Urine Ketones Negative (Negative) Urine Blood Small H (Negative) Urine Nitrite Negative (Negative) Urine Bilirubin Negative (Negative) Urine Urobilinogen <2.0 (<2.0) mg/dL Ur Leukocyte Esterase Trace H (Negative) Urine RBC 4 (0-5) /hpf Urine WBC 17 H (0-5) /hpf Ur Squamous Epith Cells 1 (0-4) /hpf Urine Bacteria Few H (None) /hpf Hyaline Casts 4 H (0-2) /lpf Granular Casts 31 (0) /lpf Urine Mucus Occasional H (None) /hpf Disposition Clinical Impression: Diarrhea, UTI (urinary tract infection), Dehydration Disposition: HOME SELF-CARE Condition: Stable Instructions: Acute Diarrhea (ED), Acute Nausea and Vomiting (ED) Additional Instructions: Please return to the Emergency Department if symptoms worsen or any other concerns. Prescriptions: Ciprofloxacin HCl [Cipro] 500 mg PO Q12HR #14 tablet Ondansetron Odt [Zofran Odt] 4 mg PO Q8HR PRN #10 tab PRN Reason: Nausea Referrals: Faizan Estrella MD [Primary Care Provider] - 1-2 days Time of Disposition: 20:06
[2016-10-15 18:56] LABS: Basophils # (A) 0.1 k/uL (0-0.2); Basophils % (A) 1 %; CHCM 33.2; Eosinophils # (A) 1.4 k/uL (0-0.7); Eosinophils % (A) 17 %; HCT 47.2 % (34.0-46.0); HDW 2.47; HGB 15.3 gm/dL (11.4-16.0); Luc # (Auto) 0.31; Luc % (Auto) 4; Lymphocytes # (A) 2.5 k/uL (1.0-4.8); Lymphocytes % (A) 30 %; MCH 33.4 pg (25.0-35.0); MCHC 32.5 g/dL (31.0-37.0); MCV 102.7 fL (80.0-100.0); Macrocytosis Slight; Mean Platelet Volume 9.3; Monocytes # (A) 0.5 k/uL (0-1.0); Monocytes % (A) 7 %; Neutrophils # (A) 3.5 k/uL (1.3-7.7); Neutrophils % (A) 42 %; RDW 13.3 % (11.5-15.5); WBC 8.2 k/uL (3.8-10.6); WBC (Perox) 7.94
[2016-10-15 19:08] LABS: Calcium 10.1 mg/dL (8.4-10.2); Potassium 3.7 mmol/L (3.5-5.1); Total Bilirubin 0.9 mg/dL (0.2-1.3); Total Protein 6.8 g/dL (6.3-8.2)
[2016-10-15 19:17] VITALS: RESP 16
[2016-10-15 19:45] LABS: Appearance,Urine Cloudy (Clear); Bacteria,Urine Few /hpf; Bilirubin,Urine Negative (Negative); Glucose,Urine (UA) Negative (Negative); Granular Casts,Urine 31 /lpf (0); Ketones,Urine Negative (Negative); Leukocyte Esterase,Urine Trace (Negative); Mucus,Urine Occasional /hpf; Nitrite,Urine Negative (Negative); PH, Urine 5.5 (5.0-8.0); Particle Count 10329; Protein,Urine 1+ (Negative); RBC,Urine 4 /hpf (0-5); Specific Gravity,Urine 1.024 (1.001-1.035); Squamous Epithelial Cell,Urine 1 /hpf (0-4); UA Billing (MACRO vs. MICRO) MICRO; Urobilinogen,Urine <2.0 mg/dL (<2.0); WBC,Urine 17 /hpf (0-5)
[2016-10-15 20:11] VITALS: BP 162/67; PULSE 60; TEMP 98.2
== END 2016-10-15 20:16 | disposition home or self-care (01) ==
LOC: EC 17:53
DX: N39.0 Urinary tract infection, site not specified (principal); E86.0 Dehydration; R19.7 Diarrhea, unspecified; R11.2 Nausea with vomiting, unspecified; E78.5 Hyperlipidemia, unspecified; I10 Essential (primary) hypertension; I48.91 Unspecified atrial fibrillation; J45.909 Unspecified asthma, uncomplicated; M19.90 Unspecified osteoarthritis, unspecified site; Z79.01 Long term (current) use of anticoagulants; Z79.1 Long term (current) use of non-steroidal anti-inflammatories (NSAID); Z79.899 Other long term (current) drug therapy; Z86.69 Personal history of other diseases of the nervous system and sense organs; Z83.79 Family history of other diseases of the digestive system
CPT/HCPCS: 36415; 80053; 81001; 82150; 83690; 85025; 87040; 96360; 99284

== ENCOUNTER 2017-01-16 08:34 | Emergency (ER) | payer MEDICARE ==
[2017-01-16] MEDS ORDERED: IPRATROPIUM-ALBUTEROL 3 ML NEB INHALATION STA (08:57)
--- NOTE | 2017-01-16 09:00 | ED ---
General Adult HPI - General Chief complaint: Shortness of Breath Stated complaint: Bronchitis Time Seen by Provider: 01/16/17 08:52 Source: patient, RN notes reviewed Mode of arrival: wheelchair Limitations: no limitations - History of Present Illness Initial comments: Patient is a pleasant 71-year-old female presenting to the emergency Department with cough. Onset of symptoms was a couple of days ago. This morning patient states she had dark green sputum. Patient does feel mildly short of breath. Patient does have a history of previous asthma/COPD. No chest pain. Patient is unclear whether or not she could be having fevers. - Related Data Home Medications Medication Instructions Recorded Confirmed Albuterol Inhaler [Ventolin Hfa 2 puff INHALATION RT-BID PRN 07/20/15 01/16/17 Inhaler] Baclofen [Lioresal] 5 mg PO TID 07/20/15 01/16/17 Dabigatran [Pradaxa] 150 mg PO BID 07/20/15 01/16/17 Hydrocodone/Acetaminophen [[place] 1 tab PO QID PRN 07/20/15 01/16/17 7.5-325] Moexipril [Univasc] 7.5 mg PO BID 07/20/15 01/16/17 Pravastatin Sodium [Pravachol] 40 mg PO DAILY 07/20/15 01/16/17 Diclofenac Sodium [Voltaren Gel] 2 gram TOPICAL BID 03/14/16 01/16/17 Verapamil HCl [Verapamil ER] 240 mg PO BID 04/11/16 01/16/17 Hydrochlorothiazide 12.5 mg PO DAILY 10/15/16 01/16/17 Latanoprost [Xalatan 0.005%] 1 drop BOTH EYES HS 10/15/16 01/16/17 Nadolol 40 mg PO DAILY 10/15/16 01/16/17 Budesonide [Pulmicort Flexhaler] 1 puff INHALATION RT-BID 01/16/17 01/16/17 Omeprazole [PriLOSEC] 20 mg PO DAILY 01/16/17 01/16/17 predniSONE See Taper PO DIRECTED 01/16/17 01/16/17 Previous Rx's Medication Instructions Recorded guaiFENesin-Coden 100-10MG/5ML 10 ml PO Q6HR PRN #200 ml 01/16/17 [Robitussin AC] Allergies Allergy/AdvReac Type Severity Reaction Status Date / Time No Known Allergies Allergy Verified 01/16/17 09:13 Review of Systems ROS Statement: Those systems with pertinent positive or pertinent negative responses have been documented in the HPI. ROS Other: All systems not noted in ROS Statement are negative. Constitutional: Denies: weight change Eyes: Denies: eye pain ENT: Denies: ear pain Respiratory: Reports: cough, dyspnea Cardiovascular: Denies: chest pain Endocrine: Denies: fatigue Gastrointestinal: Denies: abdominal pain Genitourinary: Denies: dysuria Musculoskeletal: Denies: back pain Skin: Denies: rash Neurological: Denies: weakness Past Medical History Past Medical History: Atrial Fibrillation, Asthma, COPD, GERD/Reflux, GI Bleed, Hyperlipidemia, Hypertension, Osteoarthritis (OA), Pneumonia, Syncope Additional Past Medical History / Comment(s): DJD, VARICOSE VEINS, BRONCHITIS, GLAUCOMA, stomach ULCER,DIVERTICULITIS,constipation History of Any Multi-Drug Resistant Organisms: None Reported Past Surgical History: Adenoidectomy, Appendectomy, Heart Catheterization, Hysterectomy, Tonsillectomy, Tubal Ligation Additional Past Surgical History / Comment(s): BILLY CATARACTS. Past Anesthesia/Blood Transfusion Reactions: No Reported Reaction Past Psychological History: No Psychological Hx Reported Smoking Status: Never smoker Past Alcohol Use History: None Reported Past Drug Use History: None Reported - Past Family History Father Family Medical History: COPD Additional Family Medical History / Comment(s): EMPHYSEMA Mother Family Medical History: Diabetes Mellitus, Osteoarthritis (OA) Additional Family Medical History / Comment(s): EMPHYSEMA, BOWEL OBSTRUCTION/ COLOSTOMY General Exam Limitations: no limitations General appearance: alert, in no apparent distress Head exam: Present: atraumatic Eye exam: Present: normal appearance, PERRL ENT exam: Present: normal oropharynx Neck exam: Present: normal inspection Respiratory exam: Present: wheezes Cardiovascular Exam: Present: regular rate, normal rhythm GI/Abdominal exam: Present: soft. Absent: tenderness Extremities exam: Present: normal inspection. Absent: pedal edema, calf tenderness Neurological exam: Present: alert Psychiatric exam: Present: normal affect, normal mood Skin exam: Present: normal color Course Vital Signs 01/16/17 01/16/17 01/16/17 08:40 09:35 09:45 Temperature 98.2 F Pulse Rate 74 74 77 Respiratory 18 18 Rate Blood Pressure 142/66 O2 Sat by Pulse 94 L Oximetry 01/16/17 10:00 Temperature Pulse Rate 67 Respiratory 18 Rate Blood Pressure 147/68 O2 Sat by Pulse 94 L Oximetry EKG Findings - EKG Comments: EKG Findings:: Normal sinus rhythm 74. First-degree AV block with UT of 204. QRS 88. QT 468. QTC 519. Normal axis. NoRMAL QRS. No acute ST change. Medical Decision Making - Medical Decision Making Patient reexamined and resting comfortably in bed. Lungs are clear to auscultation. Patient states she just started prednisone. Patient refuses antibiotics stating that causes diarrhea and she does not feel is necessary. Patient did ambulate without oxygen and feels well. Patient does request discharge home however does request prescription for cough medication. Patient is agreeable to return if symptoms worsen. - Lab Data Result diagrams: 01/16/17 09:02 01/16/17 09:02 Lab Results 01/16/17 01/16/17 01/16/17 Range/Units 09:02 09:02 09:02 WBC 15.5 H (3.8-10.6) k/uL RBC 4.30 (3.80-5.40) m/uL Hgb 14.4 (11.4-16.0) gm/dL Hct 43.6 (34.0-46.0) % MCV 101.4 H (80.0-100.0) fL MCH 33.4 (25.0-35.0) pg MCHC 32.9 (31.0-37.0) g/dL RDW 14.8 (11.5-15.5) % Plt Count 275 (150-450) k/uL Neutrophils % 85 % Lymphocytes % 11 % Monocytes % 2 % Eosinophils % 0 % Basophils % 0 % Neutrophils # 13.2 H (1.3-7.7) k/uL Lymphocytes # 1.8 (1.0-4.8) k/uL Monocytes # 0.4 (0-1.0) k/uL Eosinophils # 0.1 (0-0.7) k/uL Basophils # 0.0 (0-0.2) k/uL Macrocytosis Slight PT (9.0-12.0) sec INR (<1.2) APTT (22.0-30.0) sec Sodium 142 (137-145) mmol/L Potassium 3.8 (3.5-5.1) mmol/L Chloride 99 (98-107) mmol/L Carbon Dioxide 34 H (22-30) mmol/L Anion Gap 9 mmol/L BUN 17 (7-17) mg/dL Creatinine 0.79 (0.52-1.04) mg/dL Est GFR (MDRD) Af Amer >60 (>60 ml/min/1.73 sqM) Est GFR (MDRD) Non-Af >60 (>60 ml/min/1.73 sqM) Glucose 132 H (74-99) mg/dL Calcium 10.0 (8.4-10.2) mg/dL Total Bilirubin 1.0 (0.2-1.3) mg/dL AST 27 (14-36) U/L ALT 24 (9-52) U/L Alkaline Phosphatase 90 (38-126) U/L Total Creatine Kinase 41 (30-135) U/L CK-MB (CK-2) 0.4 (0.0-2.4) ng/mL CK-MB (CK-2) Rel Index 1.0 Troponin I <0.012 (0.000-0.034) ng/mL NT-Pro-B Natriuret Pep pg/mL Total Protein 7.0 (6.3-8.2) g/dL Albumin 3.8 (3.5-5.0) g/dL 01/16/17 01/16/17 Range/Units 09:02 09:02 WBC (3.8-10.6) k/uL RBC (3.80-5.40) m/uL Hgb (11.4-16.0) gm/dL Hct (34.0-46.0) % MCV (80.0-100.0) fL MCH (25.0-35.0) pg MCHC (31.0-37.0) g/dL RDW (11.5-15.5) % Plt Count (150-450) k/uL Neutrophils % % Lymphocytes % % Monocytes % % Eosinophils % % Basophils % % Neutrophils # (1.3-7.7) k/uL Lymphocytes # (1.0-4.8) k/uL Monocytes # (0-1.0) k/uL Eosinophils # (0-0.7) k/uL Basophils # (0-0.2) k/uL Macrocytosis PT 15.7 H (9.0-12.0) sec INR 1.6 H (<1.2) APTT 63.3 H (22.0-30.0) sec Sodium (137-145) mmol/L Potassium (3.5-5.1) mmol/L Chloride (98-107) mmol/L Carbon Dioxide (22-30) mmol/L Anion Gap mmol/L BUN (7-17) mg/dL Creatinine (0.52-1.04) mg/dL Est GFR (MDRD) Af Amer (>60 ml/min/1.73 sqM) Est GFR (MDRD) Non-Af (>60 ml/min/1.73 sqM) Glucose (74-99) mg/dL Calcium (8.4-10.2) mg/dL Total Bilirubin (0.2-1.3) mg/dL AST (14-36) U/L ALT (9-52) U/L Alkaline Phosphatase (38-126) U/L Total Creatine Kinase (30-135) U/L CK-MB (CK-2) (0.0-2.4) ng/mL CK-MB (CK-2) Rel Index Troponin I (0.000-0.034) ng/mL NT-Pro-B Natriuret Pep 1190 pg/mL Total Protein (6.3-8.2) g/dL Albumin (3.5-5.0) g/dL - Radiology Data Radiology results: image reviewed (Chest x-ray shows some possible mild pulmonary venous decompensation. No evidence of overt failure.) Disposition Clinical Impression: Acute exacerbation of chronic obstructive airways disease Disposition: HOME SELF-CARE Condition: Stable Instructions: Acute Bronchitis (ED), COPD (Chronic Obstructive Pulmonary Disease) (ED) Additional Instructions: Please follow-up to in the next day or 2 for recheck. Return for fever, difficulty breathing, worsening symptoms or other concerns. Prescriptions: guaiFENesin-Coden 100-10MG/5ML [Robitussin AC] 10 ml PO Q6HR PRN #200 ml PRN Reason: Cough Referrals: Faizan Etsrella MD [Primary Care Provider] - 1-2 days Time of Disposition: 11:06
--- NOTE | 2017-01-16 09:25 | XR ---
EXAMINATION TYPE: XR chest 2V DATE OF EXAM: 01/16/2017 COMPARISON: 08/05/16 HISTORY: Shortness of breath TECHNIQUE: Frontal and lateral views of the chest are obtained. FINDINGS: Scattered senescent parenchymal changes noted. Hyperinflation compatible with COPD. No evidence for infiltrate. No evidence for atelectasis. Heart size is stable. Mild chronic pulmonary venous decompensation. No evidence for overt failure. Mediastinal structures are stable and grossly unremarkable. No evidence for hilar prominence. Degenerative changes dorsal spine. IMPRESSION: 1. Heart size is stable. Mild chronic pulmonary venous decompensation. No evidence for overt failure.
[2017-01-16 09:33] LABS: Basophils % (A) 0 %; CH 34.1; CHCM 33.8; Eosinophils # (A) 0.1 k/uL (0-0.7); Eosinophils % (A) 0 %; HCT 43.6 % (34.0-46.0); HDW 2.51; HGB 14.4 gm/dL (11.4-16.0); Luc # (Auto) 0.13; Luc % (Auto) 1; Lymphocytes # (A) 1.8 k/uL (1.0-4.8); Lymphocytes % (A) 11 %; MCH 33.4 pg (25.0-35.0); MCHC 32.9 g/dL (31.0-37.0); MCV 101.4 fL (80.0-100.0); Macrocytosis Slight; Monocytes # (A) 0.4 k/uL (0-1.0); Monocytes % (A) 2 %; Neutrophils # (A) 13.2 k/uL (1.3-7.7); Neutrophils % (A) 85 %; RDW 14.8 % (11.5-15.5); WBC 15.5 k/uL (3.8-10.6); WBC (Perox) 15.59
[2017-01-16 09:54] LABS: Creatine Kinase 41 U/L (30-135)
[2017-01-16 09:57] LABS: INR 1.6 (<1.2); Prothrombin Time 15.7 sec (9.0-12.0)
[2017-01-16 10:06] LABS: Creatine Kinase MB 0.4 ng/mL (0.0-2.4); Troponin I <0.012 ng/mL (0.000-0.034)
[2017-01-16 10:08] LABS: ALT 24 U/L (9-52); AST 27 U/L (14-36); Alkaline Phosphatase 90 U/L (38-126); Anion Gap 9 mmol/L; Blood Urea Nitrogen 17 mg/dL (7-17); Carbon Dioxide 34 mmol/L (22-30); Chloride 99 mmol/L (98-107); Glucose 132 mg/dL (74-99); Non-African American GFR(MDRD) >60 (>60 ml/min/1.73 sqM); Potassium 3.8 mmol/L (3.5-5.1); Sodium 142 mmol/L (137-145)
[2017-01-16 10:10] LABS: Partial Thromboplastin Time 63.3 sec (22.0-30.0)
[2017-01-16 11:54] VITALS: BP 136/91; PULSE 72; RESP 20; TEMP 96.1
== END 2017-01-16 11:53 | disposition home or self-care (01) ==
LOC: EC 08:34
DX: J44.1 Chronic obstructive pulmonary disease with (acute) exacerbation (principal); I48.91 Unspecified atrial fibrillation; K21.9 Gastro-esophageal reflux disease without esophagitis; E78.5 Hyperlipidemia, unspecified; I10 Essential (primary) hypertension; M19.90 Unspecified osteoarthritis, unspecified site; Z79.1 Long term (current) use of non-steroidal anti-inflammatories (NSAID); Z79.51 Long term (current) use of inhaled steroids; Z79.52 Long term (current) use of systemic steroids; Z79.899 Other long term (current) drug therapy
CPT/HCPCS: 36415; 71020; 80053; 82550; 82553; 83880; 84484; 85025; 85610; 85730; 94640; 99285

== ENCOUNTER 2017-05-13 17:31 | Observation (INO) | payer MEDICARE, OTHER ==
[2017-05-13] MEDS ORDERED: ALBUTEROL NEBULIZED 2.5 MG/3 ML INHALATION STA (19:58)
[2017-05-13] MEDS ORDERED: IPRATROPIUM 0.5 MG/2.5 ML NEBU INHALATION STA (19:58)
[2017-05-13] MEDS ORDERED: predniSONE 20 MG TAB PO STA (19:58)
--- NOTE | 2017-05-13 20:00 | ED ---
General Adult HPI - General Chief complaint: Shortness of Breath Stated complaint: SOB Time Seen by Provider: 05/13/17 19:58 Source: patient, RN notes reviewed, old records reviewed Mode of arrival: ambulatory Limitations: no limitations - History of Present Illness Initial comments: 72-year-old female presenting for evaluation of dyspnea. Patient has had worsening dyspnea over the past several weeks, this was significantly worse today. She has had productive cough. Denies fever. Denies chills. Patient had an appointment with her primary care physician today. She states she had walked to this appointment which was 5 blocks away and had to rest several times secondary to dyspnea and cough. She does have a history of COPD. She is only taking one breathing treatment today because her insurance company has not delivered her medication. She denies any chest pain. Denies abdominal pain nausea vomiting. - Related Data Home Medications Medication Instructions Recorded Confirmed Albuterol Inhaler [Ventolin Hfa 2 puff INHALATION RT-BID PRN 07/20/15 05/13/17 Inhaler] Baclofen [Lioresal] 10 mg PO TID 07/20/15 05/13/17 Dabigatran [Pradaxa] 150 mg PO BID 07/20/15 05/13/17 Hydrocodone/Acetaminophen [[place] 1 tab PO QID PRN 07/20/15 05/13/17 7.5-325] Moexipril [Univasc] 7.5 mg PO BID 07/20/15 05/13/17 Pravastatin Sodium [Pravachol] 40 mg PO DAILY 07/20/15 05/13/17 Diclofenac Sodium [Voltaren Gel] 2 gram TOPICAL BID PRN 03/14/16 05/13/17 Verapamil HCl [Verapamil ER] 240 mg PO BID 04/11/16 05/13/17 Hydrochlorothiazide 12.5 mg PO DAILY 10/15/16 05/13/17 Latanoprost [Xalatan 0.005%] 1 drop BOTH EYES HS 10/15/16 05/13/17 Nadolol 40 mg PO DAILY 10/15/16 05/13/17 Omeprazole [PriLOSEC] 20 mg PO DAILY 01/16/17 05/13/17 Albuterol Nebulized [Ventolin 2.5 mg INHALATION RT-Q6H PRN 05/13/17 05/13/17 Nebulized] prednisoLONE ACETATE 1% OPHTH 1 drops BOTH EYES TID 05/13/17 05/13/17 [Pred Forte 1%] Allergies Allergy/AdvReac Type Severity Reaction Status Date / Time No Known Allergies Allergy Verified 05/13/17 20:27 Review of Systems ROS Statement: Those systems with pertinent positive or pertinent negative responses have been documented in the HPI. ROS Other: All systems not noted in ROS Statement are negative. Past Medical History Past Medical History: Atrial Fibrillation, Asthma, COPD, GERD/Reflux, GI Bleed, Hyperlipidemia, Hypertension, Osteoarthritis (OA), Pneumonia, Syncope Additional Past Medical History / Comment(s): DJD, VARICOSE VEINS, BRONCHITIS, GLAUCOMA, stomach ULCER,DIVERTICULITIS,constipation History of Any Multi-Drug Resistant Organisms: None Reported Past Surgical History: Adenoidectomy, Appendectomy, Heart Catheterization, Hysterectomy, Tonsillectomy, Tubal Ligation Additional Past Surgical History / Comment(s): BILLY CATARACTS. Past Anesthesia/Blood Transfusion Reactions: No Reported Reaction Past Psychological History: No Psychological Hx Reported Smoking Status: Never smoker Past Alcohol Use History: None Reported Past Drug Use History: None Reported - Past Family History Father Family Medical History: COPD Additional Family Medical History / Comment(s): EMPHYSEMA Mother Family Medical History: Diabetes Mellitus, Osteoarthritis (OA) Additional Family Medical History / Comment(s): EMPHYSEMA, BOWEL OBSTRUCTION/ COLOSTOMY General Exam Limitations: no limitations General appearance: alert, in no apparent distress Head exam: Present: atraumatic, normocephalic Eye exam: Present: normal appearance, PERRL ENT exam: Present: normal exam Neck exam: Present: normal inspection. Absent: tenderness, meningismus Respiratory exam: Present: respiratory distress, wheezes, decreased breath sounds, prolonged expiratory Cardiovascular Exam: Present: regular rate, normal rhythm GI/Abdominal exam: Present: soft. Absent: distended, tenderness Extremities exam: Present: normal inspection, normal capillary refill. Absent: pedal edema Back exam: Present: normal inspection, full ROM Neurological exam: Present: alert, oriented X3, CN II-XII intact. Absent: motor sensory deficit Psychiatric exam: Present: normal affect, normal mood Skin exam: Present: warm, dry, intact. Absent: cyanosis, diaphoretic Course Vital Signs 05/13/17 05/13/17 05/13/17 17:51 19:55 20:04 Temperature 98.1 F Pulse Rate 89 74 73 Respiratory 20 20 14 Rate Blood Pressure 153/99 188/93 O2 Sat by Pulse 94 L 95 Oximetry 05/13/17 05/13/17 20:18 20:47 Temperature Pulse Rate 69 66 Respiratory 16 20 Rate Blood Pressure 186/91 O2 Sat by Pulse 95 Oximetry EKG Findings - EKG Comments: EKG Findings:: EKG shows sinus rhythm with first-degree AV block, prolonged QT at 495, ventricular rate 65, [place] interval 210, QRS duration 88, no signs of acute ischemia Medical Decision Making - Medical Decision Making 72-year-old female with history of COPD presenting with exertional dyspnea and severe cough. Chest x-rays obtained, negative for focal pneumonia. Laboratory studies reveal white blood cell count 9.1, hemoglobin 14.3. Within normal limits, BNP and troponin are negative. EKG is nonischemic. On reevaluation, patient remains dyspneic at rest, lung sounds are decreased with minimal air entry. Patient will be admitted for further treatment of COPD exacerbation. - Lab Data Result diagrams: 05/13/17 20:08 05/13/17 20:08 Lab Results 05/13/17 05/13/17 05/13/17 Range/Units 20:08 20:08 20:08 WBC 9.1 (3.8-10.6) k/uL RBC 4.39 (3.80-5.40) m/uL Hgb 14.3 (11.4-16.0) gm/dL Hct 43.3 (34.0-46.0) % MCV 98.7 (80.0-100.0) fL MCH 32.6 (25.0-35.0) pg MCHC 33.1 (31.0-37.0) g/dL RDW 14.0 (11.5-15.5) % Plt Count 217 (150-450) k/uL Neutrophils % 49 % Lymphocytes % 34 % Monocytes % 5 % Eosinophils % 7 % Basophils % 1 % Neutrophils # 4.5 (1.3-7.7) k/uL Lymphocytes # 3.1 (1.0-4.8) k/uL Monocytes # 0.5 (0-1.0) k/uL Eosinophils # 0.6 (0-0.7) k/uL Basophils # 0.1 (0-0.2) k/uL PT (9.0-12.0) sec INR (<1.2) APTT (22.0-30.0) sec Sodium 143 (137-145) mmol/L Potassium 3.6 (3.5-5.1) mmol/L Chloride 98 (98-107) mmol/L Carbon Dioxide 34 H (22-30) mmol/L Anion Gap 11 mmol/L BUN 22 H (7-17) mg/dL Creatinine 0.90 (0.52-1.04) mg/dL Est GFR (MDRD) Af Amer >60 (>60 ml/min/1.73 sqM) Est GFR (MDRD) Non-Af >60 (>60 ml/min/1.73 sqM) Glucose 101 H (74-99) mg/dL Calcium 9.9 (8.4-10.2) mg/dL Magnesium 1.8 (1.6-2.3) mg/dL Total Bilirubin 0.6 (0.2-1.3) mg/dL AST 28 (14-36) U/L ALT 32 (9-52) U/L Alkaline Phosphatase 75 (38-126) U/L Total Creatine Kinase 44 (30-135) U/L CK-MB (CK-2) 0.6 (0.0-2.4) ng/mL CK-MB (CK-2) Rel Index 1.4 Troponin I <0.012 (0.000-0.034) ng/mL NT-Pro-B Natriuret Pep pg/mL Total Protein 7.0 (6.3-8.2) g/dL Albumin 4.1 (3.5-5.0) g/dL 05/13/17 05/13/17 Range/Units 20:08 20:08 WBC (3.8-10.6) k/uL RBC (3.80-5.40) m/uL Hgb (11.4-16.0) gm/dL Hct (34.0-46.0) % MCV (80.0-100.0) fL MCH (25.0-35.0) pg MCHC (31.0-37.0) g/dL RDW (11.5-15.5) % Plt Count (150-450) k/uL Neutrophils % % Lymphocytes % % Monocytes % % Eosinophils % % Basophils % % Neutrophils # (1.3-7.7) k/uL Lymphocytes # (1.0-4.8) k/uL Monocytes # (0-1.0) k/uL Eosinophils # (0-0.7) k/uL Basophils # (0-0.2) k/uL PT 12.0 (9.0-12.0) sec INR 1.3 H (<1.2) APTT 39.8 H (22.0-30.0) sec Sodium (137-145) mmol/L Potassium (3.5-5.1) mmol/L Chloride (98-107) mmol/L Carbon Dioxide (22-30) mmol/L Anion Gap mmol/L BUN (7-17) mg/dL Creatinine (0.52-1.04) mg/dL Est GFR (MDRD) Af Amer (>60 ml/min/1.73 sqM) Est GFR (MDRD) Non-Af (>60 ml/min/1.73 sqM) Glucose (74-99) mg/dL Calcium (8.4-10.2) mg/dL Magnesium (1.6-2.3) mg/dL Total Bilirubin (0.2-1.3) mg/dL AST (14-36) U/L ALT (9-52) U/L Alkaline Phosphatase (38-126) U/L Total Creatine Kinase (30-135) U/L CK-MB (CK-2) (0.0-2.4) ng/mL CK-MB (CK-2) Rel Index Troponin I (0.000-0.034) ng/mL NT-Pro-B Natriuret Pep 319 pg/mL Total Protein (6.3-8.2) g/dL Albumin (3.5-5.0) g/dL Disposition Clinical Impression: Acute exacerbation of chronic obstructive airways disease Disposition: ADMITTED IP TO THIS [facility] Condition: Stable Referrals: Faizan Estrella MD [Primary Care Provider] - 1-2 days Decision to Admit Reason: Admit from EC Decision Date: 05/13/17 Decision Time: 21:40
[2017-05-13 20:22] LABS: Basophils # (A) 0.1 k/uL (0-0.2); Basophils % (A) 1 %; Eosinophils # (A) 0.6 k/uL (0-0.7); Eosinophils % (A) 7 %; HCT 43.3 % (34.0-46.0); HGB 14.3 gm/dL (11.4-16.0); Lymphocytes # (A) 3.1 k/uL (1.0-4.8); Lymphocytes % (A) 34 %; MCH 32.6 pg (25.0-35.0); MCHC 33.1 g/dL (31.0-37.0); MCV 98.7 fL (80.0-100.0); Mean Platelet Volume 8.8; Monocytes # (A) 0.5 k/uL (0-1.0); Monocytes % (A) 5 %; Neutrophils # (A) 4.5 k/uL (1.3-7.7); Neutrophils % (A) 49 %; Platelet Count 217 k/uL (150-450); RBC 4.39 m/uL (3.80-5.40); WBC 9.1 k/uL (3.8-10.6)
[2017-05-13 20:35] LABS: ALT 32 U/L (9-52); AST 28 U/L (14-36); Albumin 4.1 g/dL (3.5-5.0); Alkaline Phosphatase 75 U/L (38-126); Anion Gap 11 mmol/L; Blood Urea Nitrogen 22 mg/dL (7-17); Calcium 9.9 mg/dL (8.4-10.2); Carbon Dioxide 34 mmol/L (22-30); Chloride 98 mmol/L (98-107); Glucose 101 mg/dL (74-99); Magnesium 1.8 mg/dL (1.6-2.3); Potassium 3.6 mmol/L (3.5-5.1); Sodium 143 mmol/L (137-145); Total Bilirubin 0.6 mg/dL (0.2-1.3)
[2017-05-13 20:39] LABS: INR 1.3 (<1.2); Partial Thromboplastin Time 39.8 sec (22.0-30.0)
[2017-05-13 20:42] LABS: Creatine Kinase 44 U/L (30-135)
[2017-05-13 20:56] LABS: Creatine Kinase MB 0.6 ng/mL (0.0-2.4); Troponin I <0.012 ng/mL (0.000-0.034)
--- NOTE | 2017-05-13 21:19 | XR ---
EXAMINATION: XR chest 2V DATE AND TIME: 05/13/2017 8:29 PM ORDERING PROVIDER: Boom Keys MD CLINICAL INDICATION: difficulty breathing TECHNIQUE: PA and lateral COMPARISON: 02/25/2017 DESCRIPTION: The lungs are clear. The pleural spaces are negative. The cardiac silhouette is not moderately enlarged, unchanged. The mediastinal and pleural silhouettes are unremarkable. The skeletal structures are intact without focal findings. The soft tissues are unremarkable. IMPRESSION: NO DEFINITE ACUTE PROCESS.
[2017-05-13] MEDS ORDERED: IPRATROPIUM-ALBUTEROL 3 ML NEB INHALATION PRN (21:36)
[2017-05-13] MEDS ORDERED: DICLOFENAC SODIUM GEL 100 GM TUBE TOPICAL PRN (21:37)
[2017-05-13] MEDS ORDERED: BACLOFEN 10 MG TAB PO SCH (22:00)
[2017-05-13 23:30] VITALS: BMI 22.1
[2017-05-13] MEDS ORDERED: BACLOFEN 10 MG TAB PO PRN (23:47)
[2017-05-14] MEDS: LATANOPROST 0.005% OPHTH DROPS 2.5 ML BTL BOTH EYES SCH ×2 (00:11→20:50)
[2017-05-14] MEDS: VERAPAMIL SR 240 MG TABLET.ER PO SCH ×3 (00:12→20:51)
[2017-05-14] MEDS: LISINOPRIL 5 MG TAB PO SCH ×2 (00:12→10:03)
[2017-05-14] MEDS: DABIGATRAN 150 MG CAP PO SCH ×3 (00:12→20:50)
[2017-05-14] MEDS: HYDROcodone/APAP 7.5-325MG 1 EACH TAB PO PRN ×2 (07:34→16:53)
[2017-05-14] MEDS: IPRATROPIUM-ALBUTEROL 3 ML NEB INHALATION SCH ×4 (08:51→20:40)
[2017-05-14] MEDS ORDERED: VERAPAMIL SR 240 MG TABLET.ER PO SCH (09:00)
[2017-05-14] MEDS ORDERED: DABIGATRAN 150 MG CAP PO SCH (09:00)
[2017-05-14] MEDS: predniSONE 20 MG TAB PO SCH (10:03)
[2017-05-14] MEDS: PRAVASTATIN SODIUM 40 MG TAB PO SCH (10:03)
[2017-05-14] MEDS: NADOLOL 20 MG TAB PO SCH (10:04)
[2017-05-14] MEDS: AMOXIC-POT CLAV 875-125MG 1 EACH TAB PO SCH ×2 (10:04→20:50)
[2017-05-14] MEDS: HYDROCHLOROTHIAZIDE 12.5 MG CAP PO SCH (10:04)
[2017-05-14] MEDS ORDERED: RX INFO: IV CONTRAST WAS GIVEN 1 EACH MISC MISCELLANE PRN (12:00)
--- NOTE | 2017-05-14 12:00 | P.CNPUL ---
<Gissell Tyler - Last Filed: 05/14/17 11:47> History of Present Illness Consult date: 05/14/17 Requesting physician: Mac Guillen Reason for consult: dyspnea Chief complaint: Shortness of breath, cough congestion History of present illness: This is a very pleasant 72-year-old female patient who follows with Dr. Leon as her primary care physician. She has a history of hyperlipidemia, chronic back pain, hypertension, atrial fibrillation, anticoagulated with Pradaxa. She also has a history of chronic bronchial asthma as a child but not recently. She has been told she has COPD however she is a lifelong nonsmoker. She presented here to the emergency room yesterday after complaining of increasing shortness of breath over the past couple of weeks. She has noted she has been having worsening shortness of breath on minimal exertion. She's had to stop and rest where previously she had not had issues. She denies any chest pain, palpitations, lightheadedness or dizziness. She does have a productive cough of thick sputum. No fever, chills or night sweats. No nausea, vomiting or diarrhea. She does have a Ventolin rescue inhaler that she has been using more often than usual. Her chest x-ray reveals no acute pulmonary process. No leukocytosis. Troponin negative. ProBNP 319. She has been afebrile. Maintain O2 saturations in the 90s on 2 L/m per nasal cannula. Hemodynamically stable. She is currently in sinus rhythm. Echocardiogram of less than 1 year revealed preserved left ventricular systolic function with ejection fraction 55- 60%. No significant pulmonary hypertension. She has been initiated on bronchodilators, prednisone and empiric antibiotics. She is breathing somewhat better today compared to yesterday. Still not quite back to her baseline. Review of Systems 14 point review of system was conducted. All negative other than as mentioned in HPI. Past Medical History Past Medical History: Atrial Fibrillation, Asthma, COPD, GERD/Reflux, GI Bleed, Hyperlipidemia, Hypertension, Osteoarthritis (OA), Pneumonia Additional Past Medical History / Comment(s): DJD, VARICOSE VEINS, BRONCHITIS, GLAUCOMA, stomach ULCER,DIVERTICULITIS,constipation History of Any Multi-Drug Resistant Organisms: None Reported Past Surgical History: Adenoidectomy, Appendectomy, Heart Catheterization, Hysterectomy, Tonsillectomy, Tubal Ligation Additional Past Surgical History / Comment(s): BILLY CATARACTS. Past Anesthesia/Blood Transfusion Reactions: No Reported Reaction Past Psychological History: No Psychological Hx Reported Additional Psychological History / Comment(s): PT LIVES AL[place] IN [place] HER GRANDDAUGHTER KVNG VISITS DAILY.. Smoking Status: Never smoker Past Alcohol Use History: None Reported Past Drug Use History: None Reported - Past Family History Father Family Medical History: COPD Additional Family Medical History / Comment(s): EMPHYSEMA Mother Family Medical History: Osteoarthritis (OA) Additional Family Medical History / Comment(s): EMPHYSEMA, BOWEL OBSTRUCTION/ COLOSTOMY Medications and Allergies Home Medications Medication Instructions Recorded Confirmed Type Albuterol Inhaler [Ventolin Hfa 2 puff INHALATION RT-BID PRN 07/20/15 05/13/17 History Inhaler] Baclofen [Lioresal] 10 mg PO TID 07/20/15 05/13/17 History Dabigatran [Pradaxa] 150 mg PO BID 07/20/15 05/13/17 History Hydrocodone/Acetaminophen [Suffolk 1 tab PO QID PRN 07/20/15 05/13/17 History 7.5-325] Moexipril [Univasc] 7.5 mg PO BID 07/20/15 05/13/17 History Pravastatin Sodium [Pravachol] 40 mg PO DAILY 07/20/15 05/13/17 History Diclofenac Sodium [Voltaren Gel] 2 gram TOPICAL BID PRN 03/14/16 05/13/17 History Verapamil HCl [Verapamil ER] 240 mg PO BID 04/11/16 05/13/17 History Hydrochlorothiazide 12.5 mg PO DAILY 10/15/16 05/13/17 History Latanoprost [Xalatan 0.005%] 1 drop BOTH EYES HS 10/15/16 05/13/17 History Nadolol 40 mg PO DAILY 10/15/16 05/13/17 History Omeprazole [PriLOSEC] 20 mg PO DAILY 01/16/17 05/13/17 History Albuterol Nebulized [Ventolin 2.5 mg INHALATION RT-Q6H PRN 05/13/17 05/13/17 History Nebulized] prednisoLONE ACETATE 1% OPHTH 1 drops BOTH EYES TID 05/13/17 05/13/17 History [Pred Forte 1%] Allergies Allergy/AdvReac Type Severity Reaction Status Date / Time No Known Allergies Allergy Verified 05/13/17 20:27 Physical Exam Vitals: Vital Signs Temp Pulse Pulse Pulse Resp BP BP 05/14/17 09:05 64 18 05/14/17 08:52 62 18 05/14/17 08:00 14 05/14/17 07:00 97.9 F 67 14 126/64 05/14/17 04:35 97.8 F 69 16 183/89 05/13/17 23:23 97.9 F 16 156/78 05/13/17 22:29 97.8 F 76 20 168/85 05/13/17 22:20 63 16 05/13/17 22:08 65 16 05/13/17 22:06 97.9 F 68 16 156/78 05/13/17 21:38 65 18 153/78 05/13/17 20:47 66 20 186/91 05/13/17 20:18 69 16 05/13/17 20:04 73 14 05/13/17 19:55 74 20 188/93 05/13/17 17:51 98.1 F 89 20 153/99 Pulse Ox 05/14/17 09:05 05/14/17 08:52 05/14/17 08:00 05/14/17 07:00 98 05/14/17 04:35 95 05/13/17 23:23 90 L 05/13/17 22:29 98 05/13/17 22:20 05/13/17 22:08 05/13/17 22:06 96 05/13/17 21:38 98 05/13/17 20:47 95 05/13/17 20:18 05/13/17 20:04 05/13/17 19:55 95 05/13/17 17:51 94 L Intake and Output 05/13/17 05/14/17 05/14/17 22:59 06:59 14:59 Intake Total 0 Balance 0 Intake: Oral 0 Other: Voiding Method Toilet # Voids 1 Weight 53.07 kg 53.07 kg GENERAL EXAM: Alert, active, comfortable in no apparent distress. HEAD: Normocephalic. EYES: Normal reaction of pupils, equal size. NOSE: Clear with pink turbinates. THROAT: No erythema or exudates. NECK: No masses, no JVD. CHEST: No chest wall deformity. LUNGS: Equal air entry with no crackles, wheeze, rhonchi or dullness. CVS: S1 and S2 normal with no audible murmur, regular rhythm. ABDOMEN: No hepatosplenomegaly, normal bowel sounds, no guarding or rigidity. SPINE: No scoliosis or deformity SKIN: No rashes CENTRAL NERVOUS SYSTEM: No focal deficits, tone is normal in all 4 extremities. EXTREMITIES: There is no peripheral edema. No clubbing, no cyanosis. Peripheral pulses are intact. Results - Laboratory Findings CBC and BMP: 05/13/17 20:08 05/13/17 20:08 PT/INR, D-dimer PT 12.0 sec (9.0-12.0) 05/13/17 20:08 INR 1.3 (<1.2) H 05/13/17 20:08 Abnormal lab findings: Abnormal Labs 05/13/17 05/13/17 20:08 20:08 INR 1.3 H APTT 39.8 H Carbon Dioxide 34 H BUN 22 H Glucose 101 H - Diagnostic Findings Chest x-ray: image reviewed Assessment and Plan Assessment: Impression: #1 Dyspnea, of unclear etiology. There may be some underlying upper respiratory infection or purulent tracheobronchitis however her lungs are clear and x-ray does not explain her significant dyspnea on minimal exertion. The patient is a lifelong nonsmoker. No leukocytosis. Afebrile. Echocardiogram reveals preserved left ventricular systolic function. We'll plan to do a computed tomography scan of the chest to rule out any other underlying abnormalities. #2 Paroxysmal atrial fibrillation, currently in sinus rhythm. Maintained on verapamil, Corgard and Pradaxa. #3 Hyperlipidemia. #4 Chronic pain syndrome. #5 Hypertension. #6 Gastroesophageal reflux disease. Plan: The patient was seen and evaluated by Dr. Gonzalez. We'll go ahead and plan for a CT scan of the chest to rule out any other underlying abnormalities. Her chest x-ray is clear. There is no direct explanation for her significant dyspnea on minimal exertion. We'll continue with bronchodilators, steroids and empiric antibiotics for now. She remains anticoagulated with Pradaxa. We'll increase her activity as tolerated. We'll continue to follow. We will make further recommendations based on her clinical status. I, the cosigning physician, performed a history & physical examination of the patient. Lungs sounds are clear. Maintaining good O2 saturations in the 90s on 2 L/m per nasal cannula. I discussed the assessment and plan of care with my nurse practitioner, Gissell Tyler. I attest to the above note as dictated by her. Time with Patient: Greater than 30 <Iris Gonzalez - Last Filed: 05/14/17 19:20> Physical Exam Vitals: Vital Signs Temp Pulse Pulse Pulse Resp BP BP 05/14/17 17:26 72 05/14/17 17:14 72 05/14/17 15:49 16 05/14/17 14:49 98.2 F 72 16 118/61 05/14/17 12:49 66 05/14/17 09:05 64 18 05/14/17 08:52 62 18 05/14/17 08:00 14 05/14/17 07:00 97.9 F 67 14 126/64 05/14/17 04:35 97.8 F 69 16 183/89 05/13/17 23:23 97.9 F 16 156/78 05/13/17 22:29 97.8 F 76 20 168/85 05/13/17 22:20 63 16 05/13/17 22:08 65 16 05/13/17 22:06 97.9 F 68 16 156/78 05/13/17 21:38 65 18 153/78 05/13/17 20:47 66 20 186/91 05/13/17 20:18 69 16 05/13/17 20:04 73 14 05/13/17 19:55 74 20 188/93 Pulse Ox 05/14/17 17:26 05/14/17 17:14 05/14/17 15:49 05/14/17 14:49 97 05/14/17 12:49 05/14/17 09:05 05/14/17 08:52 05/14/17 08:00 05/14/17 07:00 98 05/14/17 04:35 95 05/13/17 23:23 90 L 05/13/17 22:29 98 05/13/17 22:20 05/13/17 22:08 05/13/17 22:06 96 05/13/17 21:38 98 05/13/17 20:47 95 05/13/17 20:18 05/13/17 20:04 05/13/17 19:55 95 Intake and Output 01/23/18 01/23/18 01/23/18 06:59 14:59 22:59 Intake Total 180 Balance 180 Intake: Oral 180 Other: Voiding Method Toilet # Voids 1 3 Weight 53.07 kg Results - Laboratory Findings CBC and BMP: 05/13/17 20:08 05/13/17 20:08 PT/INR, D-dimer PT 12.0 sec (9.0-12.0) 05/13/17 20:08 INR 1.3 (<1.2) H 05/13/17 20:08 Abnormal lab findings: Abnormal Labs 05/13/17 05/13/17 20:08 20:08 INR 1.3 H APTT 39.8 H Carbon Dioxide 34 H BUN 22 H Glucose 101 H Assessment and Plan Assessment: This is a joint evaluate was done along with a nurse practitioner. I have recommended a computed tomography scan of the chest nontender the patient had a shortness of breath and cannot be completely explained on my evaluation. The CAT scan was completed and the patient was found to have biapical pleural parenchymal scarring in the lungs were grossly clear and there was no concerning parenchyma less or nodules identified. There was no pleural effusion or pneumothorax. Mediastinum was also clear and there was no evidence of any pulmonary embolism. There was some enlargement of the name pulmonary artery suggesting an underlying pulmonary hypertension. The right upper lobe density with 2 areas of no the T is can be seen and a follow-up CAT scan will be recommended in 12 months time. An echocardiogram was also needed to assess for the PA pressures and look for any underlying cardiomyopathy.
--- NOTE | 2017-05-14 13:27 | CT ---
EXAMINATION TYPE: CT angio chest DATE OF EXAM: 05/14/2017 COMPARISON: NONE HISTORY: Shortness of breath. CT DLP: 496 mGycm. Automated Exposure Control for Dose Reduction was Utilized. CONTRAST: CTA scan of the thorax is performed with IV Contrast, patient injected with 100 mL of Omnipaque 350, pulmonary embolism protocol. MIP Images are created on CT scanner and reviewed. FINDINGS: LUNGS: Biapical pleural parenchymal scarring is noted. Elongated nodular area of linear density phyllis guous with the pleural surface is seen within the right upper lobe on series 11 image 46 and coronal image 126 with 2 areas of nodularity measuring 4 mm and 5 mm each. The lungs are grossly clear, there is no concerning parenchymal mass or nodule identified. There is no pleural effusion or pneumothor ax seen. The tracheobronchial tree is patent. MEDIASTINUM: There is satisfactory enhancement of the pulmonary artery and its branches, there is no CT evidence for pulmonary embolism. There is enlargement of the main pulmonary artery as it measures 3.1 cm. Ascending thoracic aorta is within normal limits of size also measuring 3.1 cm. Descending th oracic aorta is also within normal limits of size measuring 2.8 cm. There are no greater than 1 cm hi lar or mediastinal lymph nodes. No cardiomegaly or pericardial effusion is seen. OTHER: There is a pectus excavatum deformity present. Cortical calcification is noted of the left kid iron, possibly from prior injury. 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 IMPRESSION: 1. No evidence of pulmonary embolus. 2. Enlargement of the main pulmonary artery, suggesting underlying pulmonary arterial hypertension. 3. Right upper lobe density with 2 areas of nodularity, overall linear in orientation with discontinu ity to the pleural surface. This is favored to represent pleural parenchymal scarring, however given the nodularity short-term follow-up in 6-12 months is recommended. 3. No focal consolidation, pleural effusion or pneumothorax.
--- NOTE | 2017-05-14 17:19 | HP ---
HISTORY AND PHYSICAL DATE OF ADMISSION: 05/14/2017 CHIEF COMPLAINT: Shortness of breath. HISTORY OF PRESENT ILLNESS: This 72-year-old woman with a past history of multiple medical problems including history of COPD, asthma, history of atrial ablation, GERD, hypertension, hyperlipidemia, being followed by Dr. Estrella in the outpatient setting, not feeling well over the past several days. Patient had increased shortness with cough over several weeks which is worsening yesterday. The patient came to [facility] and admitted for further evaluation and treatment. Admission chest x-ray was done which showed no acute abnormality. A CTA was also done recommended by pulmonology, which showed nodular lesions and possibly favoring scarring. No chest pain. No palpitations. PAST MEDICAL HISTORY: Past medical history of atrial ablation, COPD, GERD, GI bleed, hypertension, hyperlipidemia, history of degenerative joint disease. MEDICATIONS: Prior to admission include home medications are: 1. Gilbert 7.5 q.i.d. p.r.n. 2. Prednisone acetate 1 drop both eyes t.i.d. 3. Xalatan 0.05% 1 drop both eyes q.h.s. 4. Ventolin 2.5 q.6h p.r.n. 5. 240 mg b.i.d. 6. Pravachol 40 mg p.o. daily. 7. Prilosec 20 mg p.o. daily. 8. Nadolol 40 mg p.o. daily. 9. Univasc 7.5 mg p.o. b.i.d. 10.Hydrochlorothiazide 12.5 mg p.o. daily. 11.Voltaren gel 2 gram topically daily p.r.n. 12.Pradaxa 150 mg p.o. b.i.d. 13.Lioresal 10 mg p.o. t.i.d. 14.Ventolin HFA 2 puffs b.i.d. p.r.n. ALLERGIES: None. FAMILY HISTORY: History of COPD and emphysema in the family. SOCIAL HISTORY: No history of smoking. No history of alcohol. REVIEW OF SYSTEMS: ENT: No diminished vision. No diminished hearing. CARDIOVASCULAR: As mentioned earlier. Respirations: As mentioned earlier. GI no nausea or vomiting. : No dysuria. Central nervous system: As mentioned earlier. Allergy/Immunology: No asthma or hayfever. Musculoskeletal: As mentioned earlier. Rheumatology: Negative. Hematology/Oncology: No history of anemia. Endocrine : No history of diabetes or hypothyroidism. Constitutional: As mentioned earlier. Dermatology: Negative. Psychiatric: As mentioned earlier. PHYSICAL EXAMINATION: Alert and oriented times three. Pulse 72, blood pressure 118/62, respiration 16, temperature 98.2, pulse ox 97% on room air. HEENT conjunctivae normal. Oral mucosa moist. Neck is no jugular venous distention. No carotid bruit. No lymph node enlargement. Cardiovascular system: S1, S2 muffled. Respiratory: Breath sounds diminished in the bases. Scattered rhonchi and crackles. Expiratory wheezing also present. ABDOMEN: Soft, nontender. No mass palpable. Legs are no edema. No swelling. Central nervous system: Higher functions as mentioned earlier. Moves all four limbs. No focal deficits. Lymphatics: No lymph nodes palpable in the neck, axillae or groin. SKIN: No ulcers, rash or bleeding. LAB STUDIES: CBC within normal limits. INR 1.3 and glucose 101. ASSESSMENT: 1. Chronic obstructive pulmonary disease exacerbation with acute purulent tracheobronchitis. 2. Atrial fibrillation. 3. History of asthma. 4. History of gastroesophageal reflux disease. 5. Gastrointestinal bleed. 6. Hypertension. 7. Hyperlipidemia. 8. History of degenerative joint disease. 9. History of appendectomy. 10.History of cardiac catheterization. RECOMMENDATIONS AND DISCUSSION: In this 72-year-old woman who presented with multiple complex medical issues, we will monitor the patient closely. Continue the current medications, continue management and symptomatic treatment. Otherwise I would recommend bronchodilators, steroids, pulmonary consultation. Guarded prognosis because of multiple complex medical issues. Further recommendations to follow. See orders for details. MMODL / IJN: [id number] / MTDD
[2017-05-14] MEDS: prednisoLONE ACETATE 1% OPHTH DROPS 5 ML BTL BOTH EYES SCH ×2 (18:34→20:51)
[2017-05-15] MEDS ORDERED: PANTOPRAZOLE 40 MG TABLET PO SCH (07:30)
[2017-05-15] MEDS: IPRATROPIUM-ALBUTEROL 3 ML NEB INHALATION SCH ×2 (07:45→11:07)
[2017-05-15] MEDS: NADOLOL 20 MG TAB PO SCH (07:51)
[2017-05-15] MEDS: AMOXIC-POT CLAV 875-125MG 1 EACH TAB PO SCH (07:52)
[2017-05-15] MEDS: DABIGATRAN 150 MG CAP PO SCH (07:52)
[2017-05-15] MEDS: VERAPAMIL SR 240 MG TABLET.ER PO SCH (07:52)
[2017-05-15] MEDS: HYDROCHLOROTHIAZIDE 12.5 MG CAP PO SCH (07:52)
[2017-05-15] MEDS: prednisoLONE ACETATE 1% OPHTH DROPS 5 ML BTL BOTH EYES SCH (07:52)
[2017-05-15 07:53] LABS: Basophils % (A) 0 %; Eosinophils % (A) 0 %; HGB 14.9 gm/dL (11.4-16.0); Lymphocytes # (A) 2.5 k/uL (1.0-4.8); Lymphocytes % (A) 20 %; MCH 32.6 pg (25.0-35.0); MCV 98.8 fL (80.0-100.0); Mean Platelet Volume 7.9; Monocytes # (A) 0.8 k/uL (0-1.0); Monocytes % (A) 6 %; Neutrophils % (A) 72 %; Platelet Count 224 k/uL (150-450); RBC 4.56 m/uL (3.80-5.40); WBC 12.5 k/uL (3.8-10.6)
[2017-05-15 08:02] VITALS: RESP 17
[2017-05-15 08:06] VITALS: BP 168/74; TEMP 98.1
[2017-05-15] MEDS: PRAVASTATIN SODIUM 40 MG TAB PO SCH (08:09)
[2017-05-15] MEDS: predniSONE 20 MG TAB PO SCH (08:09)
[2017-05-15 08:11] LABS: Anion Gap 8 mmol/L; Blood Urea Nitrogen 21 mg/dL (7-17); Carbon Dioxide 34 mmol/L (22-30); Chloride 100 mmol/L (98-107); Glucose 98 mg/dL (74-99); Potassium 3.5 mmol/L (3.5-5.1); Sodium 142 mmol/L (137-145)
[2017-05-15] MEDS ORDERED: LISINOPRIL 20 MG TAB PO SCH (09:00)
[2017-05-15] MEDS: HYDROcodone/APAP 7.5-325MG 1 EACH TAB PO PRN (10:20)
[2017-05-15 11:09] VITALS: PULSE 72
--- NOTE | 2017-05-15 11:09 | ECHOF ---
Referral Reason:SOB, rule out PAP MEASUREMENTS -------- HEIGHT: 154.9 cm WEIGHT: 52.6 kg BP: 129/69 RVIDd: 2.1 cm (< 3.3) IVSd: 1.2 cm (0.6 - 1.1) LVIDd: 4.2 cm (3.9 - 5.3) LVPWd: 1.1 cm (0.6 - 1.1) IVSs: 1.4 cm LVIDs: 3.1 cm LVPWs: 1.5 cm LAESV Index (A-L): 23.40 ml/m Ao Diam: 2.6 cm (2.0 - 3.7) AV Cusp: 1.5 cm (1.5 - 2.6) LA Diam: 3.1 cm (2.7 - 3.8) EPSS: 0.6 cm MV E Lauri: 0.72 m/s MV DecT: 189 ms MV A Lauri: 0.74 m/s MV E/A Ratio: 0.98 RAP: 5.00 mmHg RVSP: 41.71 mmHg MV EF SLOPE: 83.27 mm/s (70 - 150) MV EXCURSION: 1.51 cm (> 18.000) FINDINGS -------- Sinus rhythm. This was a technically adequate study. The left ventricular size is normal. There is mild concentric left ventricular hypertrophy. Overa ll left ventricular systolic function is low-normal with, an EF between 50 - 55 %. The right ventricle is normal in size and function. Normal LA size by volume 22+/-6 ml/m2. The right atrium is normal in size. Aortic valve is trileaflet and is mildly thickened. There is no evidence of aortic regurgitation. There is no evidence of aortic stenosis. The mitral valve leaflets are mildly thickened. There is trace to mild mitral regurgitation. Mild tricuspid regurgitation present. There is mild pulmonary hypertension. The right ventricular systolic pressure, as measured by Doppler, is 41.71mmHg. Trace/mild (physiologic) pulmonic regurgitation. The aortic root size is normal. Normal inferior vena cava with normal inspiratory collapse consistent with estimated right atrial pre ssure of 5 mmHg. The pericardium is normal. There is no pericardial effusion. CONCLUSIONS -------- 1. Sinus rhythm. 2. This was a technically adequate study. 3. The left ventricular size is normal. 4. There is mild concentric left ventricular hypertrophy. 5. Overall left ventricular systolic function is low-normal with, an EF between 50 - 55 %. 6. Normal LA size by volume 22+/-6 ml/m2. 7. Aortic valve is trileaflet and is mildly thickened. 8. The mitral valve leaflets are mildly thickened. 9. There is trace to mild mitral regurgitation. 10. Mild tricuspid regurgitation present. 11. There is mild pulmonary hypertension. 12. The right ventricular systolic pressure, as measured by Doppler, is 41.71mmHg. 13. Trace/mild (physiologic) pulmonic regurgitation. 14. The aortic root size is normal. 15. There is no pericardial effusion. PENSION CONSULTANT: Leon Hernandez RDCS
--- NOTE | 2017-05-15 14:46 | P.PN ---
Subjective Progress Note Date: 05/15/17 Principal diagnosis: Dyspnea of unclear etiology This is a very pleasant 72-year-old female patient who follows with Dr. Leon as her primary care physician. She has a history of hyperlipidemia, chronic back pain, hypertension, atrial fibrillation, anticoagulated with Pradaxa. She also has a history of chronic bronchial asthma as a child but not recently. She has been told she has COPD however she is a lifelong nonsmoker. She presented here to the emergency room yesterday after complaining of increasing shortness of breath over the past couple of weeks. She has noted she has been having worsening shortness of breath on minimal exertion. She's had to stop and rest where previously she had not had issues. She denies any chest pain, palpitations, lightheadedness or dizziness. She does have a productive cough of thick sputum. No fever, chills or night sweats. No nausea, vomiting or diarrhea. She does have a Ventolin rescue inhaler that she has been using more often than usual. Her chest x-ray reveals no acute pulmonary process. No leukocytosis. Troponin negative. ProBNP 319. She has been afebrile. Maintain O2 saturations in the 90s on 2 L/m per nasal cannula. Hemodynamically stable. She is currently in sinus rhythm. Echocardiogram of less than 1 year revealed preserved left ventricular systolic function with ejection fraction 55- 60%. No significant pulmonary hypertension. She has been initiated on bronchodilators, prednisone and empiric antibiotics. She is breathing somewhat better today compared to yesterday. Still not quite back to her baseline. On 05/15/2017 patient seen again on surgical floor. She is awake, alert, denies any acute distress. She has been ambulating in the room, not ambulated in the hallway yet. Afebrile, vital signs are stable, on room air with O2 sat between 94-96%. Lung sounds are clear, CTA chest was reviewed, no evidence of pulmonary embolism, and area of pleural parenchymal scarring noted in the right upper lobe. No focal consolidation, pleural effusion or pneumothorax. Labs have been reviewed, no acute abnormality. On screen was negative. Cardiogram results were noted, there is mild pulmonary hypertension with right ventricle systolic pressure of 41 mmHg. EF was 50-55%. Objective - Vital Signs Vital signs: Vital Signs Temp 98.1 F 05/15/17 07:00 Pulse 72 05/15/17 11:14 Resp 17 05/15/17 07:58 BP 168/74 05/15/17 07:00 Pulse Ox 96 05/15/17 07:47 Intake & Output 05/14/17 05/15/17 05/15/17 18:59 06:59 18:59 Intake Total 180 650 Balance 180 650 Intake: Oral 180 650 Other: Voiding Method Toilet Toilet # Voids 3 1 - Exam GENERAL EXAM: Alert, active, comfortable in no apparent distress. HEAD: Normocephalic. EYES: Normal reaction of pupils, equal size. NOSE: Clear with pink turbinates. THROAT: No erythema or exudates. NECK: No masses, no JVD. CHEST: No chest wall deformity. LUNGS: Equal air entry with no crackles, wheeze, rhonchi or dullness. CVS: S1 and S2 normal with no audible murmur, regular rhythm. ABDOMEN: No hepatosplenomegaly, normal bowel sounds, no guarding or rigidity. SPINE: No scoliosis or deformity SKIN: No rashes CENTRAL NERVOUS SYSTEM: No focal deficits, tone is normal in all 4 extremities. EXTREMITIES: There is no peripheral edema. No clubbing, no cyanosis. Peripheral pulses are intact. - Labs CBC & Chem 7: 05/15/17 07:07 05/15/17 07:07 Labs: Abnormal Lab Results - Last 24 Hours (Table) 05/15/17 05/15/17 Range/Units 07:07 07:07 WBC 12.5 H (3.8-10.6) k/uL Neutrophils # 9.0 H (1.3-7.7) k/uL Carbon Dioxide 34 H (22-30) mmol/L BUN 21 H (7-17) mg/dL Assessment and Plan Plan: Assessment: #1 Dyspnea, of unclear etiology. There may be some underlying upper respiratory infection or purulent tracheobronchitis however her lungs are clear and x-ray does not explain her significant dyspnea on minimal exertion. The patient is a lifelong nonsmoker. No leukocytosis. Afebrile. Echocardiogram reveals preserved left ventricular systolic function. CT chest results were reviewed, no evidence of pulmonary embolism, was enlargement of the main pulmonary artery suggesting underlying pulmonary arterial hypertension. Right upper lobe density with 2 areas of nodularity possibly representing pleural parenchymal scarring, he to be followed up on in 6-12 months area no focal consolidation, pleural effusion or pneumothorax. #2 Paroxysmal atrial fibrillation, currently in sinus rhythm. Maintained on verapamil, Corgard and Pradaxa. #3 Hyperlipidemia. #4 Chronic pain syndrome. #5 Hypertension. #6 Gastroesophageal reflux disease. Plan: The patient was seen and evaluated by Dr. Gonzalez. CTA chest results were reviewed along with the patient. There is no significant findings that would explain patient's dyspnea with minimal exertion. Echo results were noted. From pulmonary standpoint patient came in discharge home today, she can finish outpatient course of Augmentin, and prednisone taper. Follow-up appointment with Dr. Gonzalez in the office in 2 weeks. I performed a history & physical examination of the patient and discussed their management with my nurse practitioner, Ashley Moses. I reviewed the nurse practitioner's note and agree with the documented findings and plan of care. Lung sounds are clear. The findings and the impression was discussed with the patient. I attest to the documentation by the nurse practitioner. Time with Patient: Less than 30
--- NOTE | 2017-05-16 07:30 | DS ---
DISCHARGE SUMMARY DATE OF SERVICE: 05/15/2017. FINAL DIAGNOSES: 1. Chronic obstructive pulmonary disease acute exacerbation with acute purulent tracheobronchitis. 2. Atrial fibrillation. 3. History of asthma. 4. History of gastroesophageal reflux disease. 5. History of gastrointestinal bleed. 6. Hypertension. 7. Hyperlipidemia. 8. History of degenerative joint disease. 9. History of appendectomy. 10.History of cardiac catheterization. DISCHARGE DISPOSITION: The patient will be discharged in stable condition with guarded prognosis. HISTORY OF PRESENT ILLNESS: This 72-year-old woman with a past medical history of multiple medical problems who was being followed by Dr. Estrella in the outpatient setting admitted with COPD acute exacerbation, shortness of breath. The patient was treated symptomatically. The chest x-ray was unremarkable. Cardiology performed a 2-D echo. Pulmonology saw the patient and cleared the patient for discharge. On exam, vitals are stable. CARDIOVASCULAR: S1 and S2 muffled. RESPIRATORY: A few rhonchi. NERVOUS SYSTEM: No focal deficits. DISCHARGE ADVICE: 1. Diet is cardiac. 2. Activity limited until followup. 3. Follow up with Dr. Estrella in 2 to 3 days. 4. Follow up with Pulmonary as advised. Medications are: 1. Ventolin HFA 1 to 2 puffs q.i.d. and p.r.n. 2. Albuterol inhaler q.i.d. and p.r.n. 3. Augmentin 875 mg p.o. b.i.d. for 5 days. 4. Baclofen 10 mg p.o. t.i.d. 5. Pradaxa 150 mg p.o. b.i.d. 6. Voltaren gel daily. 7. Hydrochlorothiazide 12.5 mg daily. 8. Hydrocodone 1 tablet q.i.d. p.r.n. 9. Xalatan 0.005% 1 drop both eyes. 10.Univasc 7.5 mg p.o. b.i.d. 11.Nadolol 40 mg p.o. daily. 12.Prilosec 20 mg daily. 13.Pravachol 40 mg p.o. daily. 14.Prednisolone acetate 1% ophthalmic drop 1 drop both eyes. 15.Prednisone 10 mg taper, that will be 40 mg daily for 3 day, 30 for 3 days, 20 for 3 days then 10 for 3 days. 16.Verapamil 240 mg p.o. b.i.d. Follow up with Dr. Estrella and Dr. Gonzalez as recommended. MMMORAL / IJN: [id number] / MTDD
--- NOTE | 2017-05-16 08:33 | DS ---
DISCHARGE SUMMARY DATE OF SERVICE: 05/15/2017 FINAL DIAGNOSES: 1. Chronic obstructive pulmonary disease acute exacerbation with acute tracheobronchitis. 2. Atrial fibrillation. 3. History of asthma. 4. History of gastroesophageal reflux disease. 5. GI bleed. 6. Hypertension. 7. Hyperlipidemia. 8. History of degenerative joint disease. 9. History of appendectomy. 10.History of cardiac catheterization. DISCHARGE DISPOSITION: The patient is being discharged in stable condition with guarded prognosis. HISTORY OF PRESENT ILLNESS: This 72-year-old woman with past medical history of multiple medical problems admitted with COPD acute exacerbation as well as tracheobronchitis. Patient improved significantly. Dr. Gonzalez saw the patient. A 2D echo was also done. The patient improved significantly. The patient was discharged in stable condition with guarded prognosis. The 2D echo showed ejection fraction of 45 to 50%. Vitals are stable. CARDIOVASCULAR: S1, S2. RESPIRATORY: A few scattered rhonchi. ABDOMEN: Soft. NERVOUS SYSTEM: No focal deficits. DISCHARGE ADVICE: 1. Diet is cardiac. 2. Activity limited until followup. 3. Follow up with Dr. Estrella in 2 to 3 days. 4. Follow up with Dr. Gonzalez as advised. MEDICATIONS: 1. Ventolin 2 puffs q.i.d. p.r.n. 2. Albuterol nebulizer q.4 and p.r.n. 3. Augmentin 870 mg p.o. b.i.d. for 5 days. 4. Baclofen 10 mg p.o. t.i.d. 5. Pradaxa 150 mg p.o. b.i.d. 6. Voltaren gel as before. 7. Hydrochlorothiazide 12.5 mg p.o. daily. 8. Hydrocodone acetaminophen 1 tablet q.i.d. p.r.n. 9. Xalatan 0.05% 1 drop both eyes. 10.Univasc 7.5 mg p.o. b.i.d. 11.Nadolol 40 mg p.o. daily. 12.Prilosec 20 mg p.o. daily. 13.Pravachol 40 mg p.o. daily. 14.Prednisolone acetate 1% ophthalmic ointment 1 drop each eye b.i.d. 15.Prednisone taper the 40 mg daily for 3 days, 30 for 3 days, 20 for 3 days, 10 for 3 days and then discontinue. 16.Verapamil ER 240 mg p.o. b.i.d. Follow with Dr. Estrella and Dr. Gonzalez. ATA / BILLN: [id number] /
== END 2017-05-15 14:08 | disposition home or self-care (01) ==
LOC: EC 17:31 → INTOOBSV 21:40 → 4MS4W 21:40 → 3SUR 22:06
PROVIDERS: ADMIT Hospitalist; ATTEND Hospitalist
DX: J44.0 Chronic obstructive pulmonary disease with (acute) lower respiratory infection (principal); J20.9 Acute bronchitis, unspecified; J44.1 Chronic obstructive pulmonary disease with (acute) exacerbation; I48.0 Paroxysmal atrial fibrillation; I10 Essential (primary) hypertension; E78.5 Hyperlipidemia, unspecified; M54.9 Dorsalgia, unspecified; G89.4 Chronic pain syndrome; K21.9 Gastro-esophageal reflux disease without esophagitis; H40.9 Unspecified glaucoma; I83.90 Asymptomatic varicose veins of unspecified lower extremity; M19.90 Unspecified osteoarthritis, unspecified site; Z79.01 Long term (current) use of anticoagulants; Z79.891 Long term (current) use of opiate analgesic; Z79.899 Other long term (current) drug therapy; Z87.01 Personal history of pneumonia (recurrent); Z87.11 Personal history of peptic ulcer disease; Z82.5 Family history of asthma and other chronic lower respiratory diseases; Z87.19 Personal history of other diseases of the digestive system
CPT/HCPCS: 99285 ×2; 36415; 94640 ×5; 94760; 93005; 93306; 83880; 80053; 80048; 82550; 82553; 83735; 84484; 85025 ×2; 85610; 85730; 87502; 71046; 71275; G0378 ×4; Q9967; J7512 ×3

== ENCOUNTER 2017-08-11 14:54 | Observation (INO) | payer MEDICARE, OTHER ==
[2017-08-11] MEDS ORDERED: IPRATROPIUM-ALBUTEROL 3 ML NEB INHALATION STA (15:30)
[2017-08-11] MEDS ORDERED: methylPREDNISolone SOD SUCCI 125 MG/2 ML VIAL IV STA (15:30)
--- NOTE | 2017-08-11 15:34 | ED ---
General Adult HPI - General Chief complaint: Shortness of Breath Stated complaint: Sob Time Seen by Provider: 08/11/17 15:24 Source: patient, RN notes reviewed Mode of arrival: wheelchair Limitations: no limitations - History of Present Illness Initial comments: Patient is a pleasant 72-year-old female sitting to the emergency department with difficulty breathing. Symptoms especially with any exertion and patient becomes extremely fatigued. Patient does have mild cough. Patient does have history of similar symptoms previously associated with COPD. Symptoms got more severe prior to arrival. - Related Data Home Medications Medication Instructions Recorded Confirmed Albuterol Inhaler [Ventolin Hfa 2 puff INHALATION RT-BID 07/20/15 08/11/17 Inhaler] Baclofen [Lioresal] 10 mg PO TID PRN 07/20/15 08/11/17 Dabigatran [Pradaxa] 150 mg PO BID 07/20/15 08/11/17 Hydrocodone/Acetaminophen [[place] 1 tab PO QID PRN 07/20/15 08/11/17 7.5-325] Moexipril [Univasc] 7.5 mg PO BID 07/20/15 08/11/17 Pravastatin Sodium [Pravachol] 40 mg PO DAILY 07/20/15 08/11/17 Diclofenac Sodium [Voltaren Gel] 2 gram TOPICAL BID PRN 03/14/16 08/11/17 Verapamil HCl [Verapamil ER] 240 mg PO BID 04/11/16 08/11/17 Hydrochlorothiazide 12.5 mg PO DAILY 10/15/16 08/11/17 Latanoprost [Xalatan 0.005%] 1 drop BOTH EYES HS 10/15/16 08/11/17 Nadolol 40 mg PO DAILY 10/15/16 08/11/17 Omeprazole [PriLOSEC] 20 mg PO DAILY 01/16/17 08/11/17 Albuterol Nebulized [Ventolin 2.5 mg INHALATION RT-QID PRN 08/11/17 08/11/17 Nebulized] Budesonide/Formoterol Fumarate 2 puff INHALATION RT-BID 08/11/17 08/11/17 [Symbicort 160-4.5 Mcg Inhaler] Allergies Allergy/AdvReac Type Severity Reaction Status Date / Time No Known Allergies Allergy Verified 08/11/17 16:35 Review of Systems ROS Statement: Those systems with pertinent positive or pertinent negative responses have been documented in the HPI. ROS Other: All systems not noted in ROS Statement are negative. Constitutional: Denies: fever Eyes: Denies: eye pain ENT: Denies: ear pain Respiratory: Reports: cough, dyspnea Cardiovascular: Denies: chest pain Endocrine: Reports: fatigue Gastrointestinal: Denies: abdominal pain Genitourinary: Denies: dysuria Musculoskeletal: Denies: back pain Skin: Denies: rash Neurological: Denies: headache Past Medical History Past Medical History: Atrial Fibrillation, Asthma, COPD, GERD/Reflux, GI Bleed, Hyperlipidemia, Hypertension, Osteoarthritis (OA), Pneumonia Additional Past Medical History / Comment(s): DJD, VARICOSE VEINS, BRONCHITIS, GLAUCOMA, stomach ULCER,DIVERTICULITIS,constipation History of Any Multi-Drug Resistant Organisms: None Reported Past Surgical History: Adenoidectomy, Appendectomy, Heart Catheterization, Hysterectomy, Tonsillectomy, Tubal Ligation Additional Past Surgical History / Comment(s): BILLY CATARACTS. Past Anesthesia/Blood Transfusion Reactions: No Reported Reaction Past Psychological History: No Psychological Hx Reported Smoking Status: Never smoker Past Alcohol Use History: None Reported Past Drug Use History: None Reported - Past Family History Father Family Medical History: COPD Additional Family Medical History / Comment(s): EMPHYSEMA Mother Family Medical History: Osteoarthritis (OA) Additional Family Medical History / Comment(s): EMPHYSEMA, BOWEL OBSTRUCTION/ COLOSTOMY General Exam Limitations: no limitations General appearance: alert, in no apparent distress Head exam: Present: atraumatic Eye exam: Present: normal appearance, PERRL ENT exam: Present: normal oropharynx Neck exam: Present: normal inspection Respiratory exam: Present: wheezes (Mild expiratory wheeze), decreased breath sounds Cardiovascular Exam: Present: regular rate, normal rhythm GI/Abdominal exam: Present: soft. Absent: tenderness Extremities exam: Present: normal inspection. Absent: pedal edema, calf tenderness Back exam: Present: normal inspection Neurological exam: Present: alert Psychiatric exam: Present: normal affect, normal mood Skin exam: Present: normal color Course Vital Signs 08/11/17 08/11/17 08/11/17 15:10 16:17 16:45 Temperature 97.9 F Pulse Rate 88 58 L Respiratory 18 24 16 Rate Blood Pressure 141/61 O2 Sat by Pulse 93 L Oximetry 08/11/17 16:50 Temperature Pulse Rate 60 Respiratory 18 Rate Blood Pressure O2 Sat by Pulse Oximetry EKG Findings - EKG Comments: EKG Findings:: Sinus rhythm at 61. First-degree AV block WI of 228. QRS 86. QT 46. QTc 49. Normal axis. Normal QRS. No acute ST change. Medical Decision Making - Medical Decision Making Patient reevaluated and updated. Dr. reddy has been paged for admission for Dr. Leon. - Lab Data Result diagrams: 08/11/17 15:49 08/11/17 15:49 Lab Results 08/11/17 08/11/17 08/11/17 Range/Units 15:40 15:49 15:49 WBC 11.8 H (3.8-10.6) k/uL RBC 4.09 (3.80-5.40) m/uL Hgb 13.3 (11.4-16.0) gm/dL Hct 40.1 (34.0-46.0) % MCV 98.1 (80.0-100.0) fL MCH 32.5 (25.0-35.0) pg MCHC 33.1 (31.0-37.0) g/dL RDW 13.0 (11.5-15.5) % Plt Count 215 (150-450) k/uL Neutrophils % 66 % Lymphocytes % 19 % Monocytes % 7 % Eosinophils % 7 % Basophils % 0 % Neutrophils # 7.8 H (1.3-7.7) k/uL Lymphocytes # 2.2 (1.0-4.8) k/uL Monocytes # 0.8 (0-1.0) k/uL Eosinophils # 0.8 H (0-0.7) k/uL Basophils # 0.0 (0-0.2) k/uL PT (9.0-12.0) sec INR (<1.2) APTT (22.0-30.0) sec D-Dimer (<0.60) mg/L FEU Sodium (137-145) mmol/L Potassium (3.5-5.1) mmol/L Chloride (98-107) mmol/L Carbon Dioxide (22-30) mmol/L Anion Gap mmol/L BUN (7-17) mg/dL Creatinine (0.52-1.04) mg/dL Est GFR (CKD-EPI)AfAm (>60 ml/min/1.73 sqM) Est GFR (CKD-EPI)NonAf (>60 ml/min/1.73 sqM) Glucose (74-99) mg/dL Calcium (8.4-10.2) mg/dL Total Bilirubin (0.2-1.3) mg/dL AST (14-36) U/L ALT (9-52) U/L Alkaline Phosphatase (38-126) U/L Total Creatine Kinase 41 (30-135) U/L CK-MB (CK-2) 0.6 (0.0-2.4) ng/mL CK-MB (CK-2) Rel Index 1.5 Troponin I <0.012 (0.000-0.034) ng/mL NT-Pro-B Natriuret Pep pg/mL Total Protein (6.3-8.2) g/dL Albumin (3.5-5.0) g/dL Influenza Type A RNA Not Detected (Not Detectd) Influenza Type B (PCR) Not Detected (Not Detectd) 08/11/17 08/11/17 08/11/17 Range/Units 15:49 15:49 15:49 WBC (3.8-10.6) k/uL RBC (3.80-5.40) m/uL Hgb (11.4-16.0) gm/dL Hct (34.0-46.0) % MCV (80.0-100.0) fL MCH (25.0-35.0) pg MCHC (31.0-37.0) g/dL RDW (11.5-15.5) % Plt Count (150-450) k/uL Neutrophils % % Lymphocytes % % Monocytes % % Eosinophils % % Basophils % % Neutrophils # (1.3-7.7) k/uL Lymphocytes # (1.0-4.8) k/uL Monocytes # (0-1.0) k/uL Eosinophils # (0-0.7) k/uL Basophils # (0-0.2) k/uL PT 14.4 H (9.0-12.0) sec INR 1.6 H (<1.2) APTT 45.9 H (22.0-30.0) sec D-Dimer 0.36 (<0.60) mg/L FEU Sodium 143 (137-145) mmol/L Potassium 3.1 L (3.5-5.1) mmol/L Chloride 96 L (98-107) mmol/L Carbon Dioxide 38 H (22-30) mmol/L Anion Gap 9 mmol/L BUN 19 H (7-17) mg/dL Creatinine 0.82 (0.52-1.04) mg/dL Est GFR (CKD-EPI)AfAm 82 (>60 ml/min/1.73 sqM) Est GFR (CKD-EPI)NonAf 71 (>60 ml/min/1.73 sqM) Glucose 134 H (74-99) mg/dL Calcium 9.4 (8.4-10.2) mg/dL Total Bilirubin 0.6 (0.2-1.3) mg/dL AST 23 (14-36) U/L ALT 24 (9-52) U/L Alkaline Phosphatase 78 (38-126) U/L Total Creatine Kinase (30-135) U/L CK-MB (CK-2) (0.0-2.4) ng/mL CK-MB (CK-2) Rel Index Troponin I (0.000-0.034) ng/mL NT-Pro-B Natriuret Pep 523 pg/mL Total Protein 6.0 L (6.3-8.2) g/dL Albumin 3.6 (3.5-5.0) g/dL Influenza Type A RNA (Not Detectd) Influenza Type B (PCR) (Not Detectd) - Radiology Data Radiology results: image reviewed (Chest x-ray shows no acute process) Disposition Clinical Impression: Acute exacerbation of chronic obstructive airways disease Disposition: ADMITTED IP TO THIS HOSP Is patient prescribed a controlled substance at d/c from ED?: No Referrals: Faizan Estrella MD [Primary Care Provider] - 1-2 days Decision Time: 16:53
[2017-08-11 16:06] LABS: Basophils % (A) 0 %; Eosinophils # (A) 0.8 k/uL (0-0.7); Eosinophils % (A) 7 %; HCT 40.1 % (34.0-46.0); HGB 13.3 gm/dL (11.4-16.0); Lymphocytes # (A) 2.2 k/uL (1.0-4.8); Lymphocytes % (A) 19 %; MCH 32.5 pg (25.0-35.0); MCHC 33.1 g/dL (31.0-37.0); MCV 98.1 fL (80.0-100.0); Mean Platelet Volume 8.5; Monocytes # (A) 0.8 k/uL (0-1.0); Monocytes % (A) 7 %; Neutrophils # (A) 7.8 k/uL (1.3-7.7); Neutrophils % (A) 66 %; Platelet Count 215 k/uL (150-450); RBC 4.09 m/uL (3.80-5.40); WBC 11.8 k/uL (3.8-10.6)
[2017-08-11 16:15] LABS: D-Dimer 0.36 mg/L FEU (<0.60); INR 1.6 (<1.2); Partial Thromboplastin Time 45.9 sec (22.0-30.0); Prothrombin Time 14.4 sec (9.0-12.0)
--- NOTE | 2017-08-11 16:16 | XR ---
EXAMINATION TYPE: XR chest 2V DATE OF EXAM: 08/11/2017 COMPARISON: 05/13/2017 HISTORY: Shortness of breath TECHNIQUE: Frontal and lateral views of the chest are obtained. FINDINGS: Scattered senescent parenchymal changes noted. Hyperinflation compatible with COPD. No evidence for infiltrate. No evidence for atelectasis. Heart size is stable. Mediastinal structures are stable and grossly unremarkable. No evidence for hilar prominence. Degenerative changes dorsal spine. IMPRESSION: 1. No evidence for acute pulmonary disease.
[2017-08-11 16:22] LABS: Albumin 3.6 g/dL (3.5-5.0); Calcium 9.4 mg/dL (8.4-10.2); Potassium 3.1 mmol/L (3.5-5.1); Total Bilirubin 0.6 mg/dL (0.2-1.3)
[2017-08-11 16:33] LABS: Creatine Kinase 41 U/L (30-135)
[2017-08-11] MEDS ORDERED: POTASSIUM CHLORIDE ER 20 MEQ TAB.ER PO STA (16:38)
[2017-08-11 16:45] LABS: Creatine Kinase MB 0.6 ng/mL (0.0-2.4); Troponin I <0.012 ng/mL (0.000-0.034)
[2017-08-11] MEDS ORDERED: IPRATROPIUM-ALBUTEROL 3 ML NEB INHALATION PRN (16:53)
[2017-08-11] MEDS ORDERED: methylPREDNISolone SOD SUCCI 125 MG/2 ML VIAL IV SCH (18:00)
[2017-08-11 18:11] VITALS: BMI 21.0
[2017-08-11] MEDS ORDERED: IPRATROPIUM-ALBUTEROL 3 ML NEB INHALATION SCH (20:00)
[2017-08-11 20:10] LABS: Glucose,Whole Blood 147 mg/dL (75-99)
[2017-08-11] MEDS ORDERED: DICLOFENAC SODIUM GEL 100 GM TUBE TOPICAL PRN (20:25)
[2017-08-11] MEDS: SODIUM CHLORIDE 0.9% 1,000 ML IV SCH (21:30)
[2017-08-11] MEDS: DABIGATRAN 150 MG CAP PO SCH (21:30)
[2017-08-11] MEDS: VERAPAMIL SR 240 MG TABLET.ER PO SCH (21:30)
[2017-08-11] MEDS: LATANOPROST 0.005% OPHTH DROPS 2.5 ML BTL BOTH EYES SCH (21:30)
[2017-08-11] MEDS: BACLOFEN 10 MG TAB PO PRN (21:38)
[2017-08-11] MEDS: HYDROcodone/APAP 7.5-325MG 1 EACH TAB PO PRN (21:39)
--- NOTE | 2017-08-11 22:55 | HP ---
HISTORY AND PHYSICAL DATE OF SERVICE: 08/11/2017. PRESENTING COMPLAINT: Short of breath. HISTORY OF PRESENTING COMPLAINT: A very pleasant 72-year-old patient of Dr. Faizan Estrella. Chronic stable medical conditions include GERD, hyperlipidemia, hypertension, osteoarthritis. The patient presented with 3 to 4 days of worsening shortness of breath, wheezing, occasional cough, not bringing up really any single sputum. Appetite is maintained. No fever, no chills, just tired and run down. Decided to come in. Patient was found to have acute asthma exacerbation. Started steroids and nebulized bronchodilators in the ER, to which she started to respond. REVIEW OF SYSTEMS: CONSTITUTIONAL: Tired. HEENT: None. RESPIRATORY: As above. CARDIOVASCULAR: None. GASTROINTESTINAL: Heartburn. GENITOURINARY: Trouble holding urine when she has to go. HEMATOLOGIC: None. LYMPHATIC: None. PSYCHIATRY: None. NEUROLOGIC: None. MUSCULOSKELETAL: Arthritic pain in joints. PAST MEDICAL HISTORY: Asthma, GERD, hyperlipidemia, hypertension, osteoarthritis, atrial fibrillation, diverticulitis. PAST SURGICAL HISTORY: Adenoidectomy, appendectomy, cardiac catheterization, hysterectomy, tonsillectomy, tubal ligation, bilateral cataract. SOCIAL HISTORY: No history of smoking or alcohol. Lives by herself. FAMILY HISTORY: COPD. HOME MEDICATIONS: 1. Verapamil ER 240 mg p.o. b.i.d. 2. Pravachol 40 mg p.o. daily. 3. Prilosec 20 mg p.o. daily. 4. Atenolol 40 mg p.o. daily. 5. Univasc 7.5 p.o. b.i.d. 6. Xalatan 0.005% 1 drop to both eyes at bedtime. 7. [place] 7.5 one tab p.o. q.i.d. p.r.n. 8. Hydrochlorothiazide 12.5 p.o. daily. 9. Voltaren gel 2 grams topical b.i.d. 10.Pradaxa 240 mg p.o. b.i.d. 11.Symbicort 160/4.5, 2 puffs b.i.d. 12.Baclofen 10 mg p.o. t.i.d. p.r.n. 13.Ventolin 2.5 q.i.d. p.r.n. 14.Ventolin HFA 2 puffs b.i.d. ALLERGIES: None. PHYSICAL EXAMINATION: Vital signs on presentation, temperature 97.9, pulse 88, respiratory rate 18, blood pressure 140/61, pulse ox 93% on room appearance. GENERAL APPEARANCE: Thin built, sitting up, awake. EYES: Pupils equal. Conjunctivae normal. HEENT: External appearance of nose and ears normal. Oral cavity normal. NECK: JVD not raised. Mass not palpable. Respiratory effort increased. LUNGS: Decreased breath sounds, prolonged expiration and wheezing. CARDIOVASCULAR: 1st and 2nd sounds. No edema. ABDOMEN: Soft, nontender. Liver and spleen not palpable. LYMPHATIC: No lymph nodes palpable in the neck or axilla. PSYCHIATRY: Alert, oriented x3. Mood and affect slightly anxious-appearing. NEUROLOGIC: Pupils equal. Cranial nerves grossly intact. Power and sensation grossly intact. MUSCULOSKELETAL: Evidence of osteoarthritis, especially in the hands and knees. INVESTIGATION: White count 11.8, potassium 3.1, BUN 19, creatinine 0.82. Chest x-ray, no evidence of active disease. ASSESSMENT: 1. Acute exacerbation of moderate persistent asthma. 2. Gastroesophageal reflux disease. 3. Hyperlipidemia. 4. Essential hypertension. 5. Primary osteoarthritis of multiple joints bilateral. 6. Paroxysmal atrial fibrillation. The patient is on Pradaxa. PLAN: Patient is started on IV steroids, nebulized bronchodilators. Home medications are resumed. Care was discussed with the patient. The patient is already on Pradaxa. We will hold off any other form of anticoagulation. MMODL / IJN: [id number] /
[2017-08-12] MEDS ORDERED: IPRATROPIUM-ALBUTEROL 3 ML NEB INHALATION SCH
[2017-08-12] MEDS: methylPREDNISolone SOD SUCCI 40 MG/ML 1 ML VIAL IV SCH ×3 (03:11→15:47)
[2017-08-12] MEDS: SODIUM CHLORIDE 0.9% 1,000 ML IV SCH ×2 (03:12→08:28)
[2017-08-12] MEDS: HYDROcodone/APAP 7.5-325MG 1 EACH TAB PO PRN ×3 (05:47→21:14)
[2017-08-12 07:01] LABS: Glucose,Whole Blood 140 mg/dL (75-99)
[2017-08-12] MEDS: SYMBICORT 160-4.5 MCG INHALER INHALATION SCH ×2 (08:02→19:35)
[2017-08-12] MEDS: IPRATROPIUM-ALBUTEROL 3 ML NEB INHALATION SCH ×4 (08:02→19:34)
[2017-08-12] MEDS: HYDROCHLOROTHIAZIDE 12.5 MG CAP PO SCH (08:27)
[2017-08-12] MEDS: DABIGATRAN 150 MG CAP PO SCH ×2 (08:27→21:14)
[2017-08-12] MEDS: PANTOPRAZOLE 40 MG TABLET PO SCH (08:27)
[2017-08-12] MEDS: LISINOPRIL 20 MG TAB PO SCH (08:27)
[2017-08-12] MEDS: NADOLOL 20 MG TAB PO SCH (08:28)
[2017-08-12] MEDS: VERAPAMIL SR 240 MG TABLET.ER PO SCH ×2 (08:28→21:15)
[2017-08-12] MEDS: PRAVASTATIN SODIUM 40 MG TAB PO SCH (08:28)
[2017-08-12] MEDS ORDERED: ENOXAPARIN 40 MG/0.4 ML SYRINGE SQ SCH (09:00)
[2017-08-12 11:41] LABS: Glucose,Whole Blood 156 mg/dL (75-99)
[2017-08-12] MEDS: INSULIN ASPART 100 UNIT/ML 1 ML 10 ML VIAL SQ SCH ×3 (12:38→21:11)
[2017-08-12 17:18] LABS: Glucose,Whole Blood 124 mg/dL (75-99)
--- NOTE | 2017-08-12 18:59 | PN ---
PROGRESS NOTE DATE OF SERVICE: 08/12/17 PRESENTING COMPLAINT: Short of breath. INTERVAL HISTORY: This pleasant lady presented with acute asthma exacerbation breathing a bit better. Less cough, did tolerate a diet. Did get up to the bathroom. REVIEW OF SYSTEMS: Done for constitutional, cardiovascular, GI, pulmonary; relevant findings as above. CURRENT MEDICATIONS: Reviewed that include DuoNeb, IV Solu-Medrol. PHYSICAL EXAMINATION: Temperature 97.5, pulse 66, respiratory 18, blood pressure 130/71, pulse ox 92% on 2 L. GENERAL APPEARANCE: Sitting on bed, more perky today. EYES: Pupils equal. Conjunctivae normal. HEENT: External appearance of nose and ears normal. Oral cavity normal. NECK: JVD not raised. Mass not palpable. RESPIRATORY: Effort increased, lungs decreased breath sounds. Prolonged expiration. Decreased wheezing. CARDIOVASCULAR: First and second sounds, no edema. ABDOMEN: Soft, nontender. Liver and spleen not palpable. PSYCHIATRY: Alert and oriented x3. Mood and affect normal. INVESTIGATIONS: Accu-Cheks are noted. ASSESSMENT: 1. Acute exacerbation of moderate persistent asthma, improving. 2. Gastroesophageal reflux disease. 3. Hyperlipidemia. 4. Essential hypertension. 5. Primary osteoarthritis of multiple joints bilateral. 6. Paroxysmal atrial fibrillation. The patient is on Pradaxa. PLAN: Continue current medication and treatment plan. Scale back on the dose of Solu-Medrol. MMODL / IJN: [id number] /
[2017-08-12 20:39] LABS: Glucose,Whole Blood 135 mg/dL (75-99)
[2017-08-12] MEDS: LATANOPROST 0.005% OPHTH DROPS 2.5 ML BTL BOTH EYES SCH (21:18)
[2017-08-12] MEDS: BACLOFEN 10 MG TAB PO PRN (22:15)
[2017-08-13] MEDS: SODIUM CHLORIDE 0.9% 1,000 ML IV SCH ×2 (03:36→09:13)
[2017-08-13] MEDS: SYMBICORT 160-4.5 MCG INHALER INHALATION SCH (06:47)
[2017-08-13] MEDS: IPRATROPIUM-ALBUTEROL 3 ML NEB INHALATION SCH ×2 (06:47→11:07)
[2017-08-13 06:59] VITALS: BP 149/74; RESP 17; TEMP 97.2
[2017-08-13 07:00] VITALS: PULSE 72
[2017-08-13 07:04] LABS: Glucose,Whole Blood 134 mg/dL (75-99)
[2017-08-13 08:16] LABS: Anion Gap 10 mmol/L; Blood Urea Nitrogen 25 mg/dL (7-17); Calcium 9.4 mg/dL (8.4-10.2); Carbon Dioxide 30 mmol/L (22-30); Chloride 103 mmol/L (98-107); Glucose 133 mg/dL (74-99); Potassium 3.9 mmol/L (3.5-5.1); Sodium 143 mmol/L (137-145)
[2017-08-13] MEDS ORDERED: predniSONE 20 MG TAB PO SCH (09:00)
[2017-08-13] MEDS: INSULIN ASPART 100 UNIT/ML 1 ML 10 ML VIAL SQ SCH ×2 (09:11→11:34)
[2017-08-13] MEDS: PRAVASTATIN SODIUM 40 MG TAB PO SCH (09:12)
[2017-08-13] MEDS: NADOLOL 20 MG TAB PO SCH (09:12)
[2017-08-13] MEDS: DABIGATRAN 150 MG CAP PO SCH (09:12)
[2017-08-13] MEDS: PANTOPRAZOLE 40 MG TABLET PO SCH (09:12)
[2017-08-13] MEDS: VERAPAMIL SR 240 MG TABLET.ER PO SCH (09:13)
[2017-08-13] MEDS: HYDROCHLOROTHIAZIDE 12.5 MG CAP PO SCH (09:13)
[2017-08-13] MEDS: LISINOPRIL 20 MG TAB PO SCH (09:13)
[2017-08-13] MEDS: HYDROcodone/APAP 7.5-325MG 1 EACH TAB PO PRN (09:23)
[2017-08-13 11:26] LABS: Glucose,Whole Blood 108 mg/dL (75-99)
--- NOTE | 2017-08-14 08:06 | DS ---
DISCHARGE SUMMARY DATE OF ADMISSION: 08/11/2017 DATE OF DISCHARGE: August 13, 2017. FINAL DIAGNOSES: 1. Acute exacerbation of moderate persistent asthma, present on admission. 2. Gastroesophageal reflux disease. 3. Hyperlipidemia. 4. Essential hypertension. 5. Primary osteoarthritis of multiple joints bilateral. 6. Paroxysmal atrial fibrillation. Patient is on Pradaxa. HOSPITAL COURSE: This patient presented with asthma exacerbation. Doing much better by the time of discharge, treated with bronchodilators and a burst of steroids. EXAM: Lungs improved air entry. Cardiovascular: 1st and 2nd sounds normal. DISCHARGE MEDICATIONS: 1. Ventolin HFA 2 puffs b.i.d. 2. Baclofen 10 mg p.o. t.i.d. p.r.n. 3. Pradaxa 150 mg p.o. b.i.d. 4. [place] 7.5 one tab p.o. q.i.d. p.r.n. 5. Univasc 7.5 p.o. b.i.d. 6. Pravachol 40 mg p.o. daily. 7. Voltaren gel 2 g b.i.d. 8. Verapamil ER 240 mg b.i.d. 9. Hydrochlorothiazide 12.5 p.o. daily. 10.Xalatan 0.005% 1 drop to both eyes q.h.s. 11.Nadolol 40 mg p.o. daily. 12.Prilosec 20 mg p.o. daily. 13.Ventolin 2.5 q.i.d. p.r.n. 14.Symbicort 160/4.5, 2 puffs b.i.d. 15.Prednisone taper. Follow up with Dr. Estrella on August 16, 2017. MMODL / IJN: [id number] /
== END 2017-08-13 14:20 | disposition home or self-care (01) ==
LOC: EC 14:54 → 3SUR 17:09
PROVIDERS: ADMIT Hospitalist; ATTEND Hospitalist
DX: J45.41 Moderate persistent asthma with (acute) exacerbation (principal); K21.9 Gastro-esophageal reflux disease without esophagitis; E78.5 Hyperlipidemia, unspecified; I10 Essential (primary) hypertension; M19.91 Primary osteoarthritis, unspecified site; I48.0 Paroxysmal atrial fibrillation; J44.9 Chronic obstructive pulmonary disease, unspecified; Z87.09 Personal history of other diseases of the respiratory system; Z79.899 Other long term (current) drug therapy; Z79.01 Long term (current) use of anticoagulants; Z79.51 Long term (current) use of inhaled steroids
CPT/HCPCS: 99285 ×2; 96374 ×2; 96376 ×2; 36415; 94640 ×5; 94760; 93005; 85379; 83880; 80053; 80048; 82550; 82553; 84484; 85025; 85610; 85730; 87502; 83036; 71046; G0378 ×3; J2920; J2930; J7512

== ENCOUNTER → 2017-08-20 | Outpatient (CLI) | payer MEDICARE, OTHER | END | disposition home or self-care (01) | LOC: CPPFTMAIN 10:15 | PROVIDERS: ATTEND Internal Medicine | DX: J44.9 Chronic obstructive pulmonary disease, unspecified (principal) | CPT/HCPCS: 94010; 94726; 94729 ==

== ENCOUNTER → 2017-11-20 | Outpatient (CLI) | payer MEDICARE, OTHER ==
[2017-11-20 11:48] LABS: Blood Urea Nitrogen 24 mg/dL (7-17)
--- NOTE | 2017-11-20 12:36 | CT ---
EXAMINATION TYPE: CT chest w con DATE OF EXAM: 11/20/2017 COMPARISON: CTA chest May 14, 2017. Chest x-ray August 11, 2017 and older studies. HISTORY: Abnormal Imaging Findings per order. Prior abnormal CT. CT DLP: 194.80 mGycm. Automated Exposure Control for Dose Reduction was Utilized. TECHNIQUE: CT scan of the thorax is performed following with IV Contrast, patient injected with 100 ml mL of Isovue 300. FINDINGS: LUNGS: Mild to moderate biapical pleural/parenchymal scarring is redemonstrated. There is persistent linear scarring laterally right upper lobe axial image 18 slightly thickened not significantly change d in appearance from prior study correlating with coronal image 41. No new suspicious nodules or mass es are identified. There is focal lingular scarring axial image 43 redemonstrated near slightly thick ened medial pleura. No pleural effusion or pneumothorax is present. MEDIASTINUM: There are no greater than 1 cm hilar or mediastinal lymph nodes. No pericardial effusi on is seen. Cardiomegaly with atherosclerotic thoracic aorta is redemonstrated. Pectus excavatum def ormity is again seen. Prominent right and left pulmonary arteries redemonstrated. Slightly ectatic de scending aorta redemonstrated. OTHER: S-shaped scoliosis is redemonstrated. Spine is straightened on sagittal images. Slightly nodul ar fibroglandular tissue subareolar region right breast axial image 29 is unchanged from prior. Areas of cortical scarring and calcification and scarring and left kidney are redemonstrated. IMPRESSION: Overall stable findings, no suspicious new mass or nodule identified to suggest malignanc y.
== END | disposition home or self-care (01) ==
LOC: RADCTMAIN 11:04
PROVIDERS: ATTEND Internal Medicine Critical Care Medicine
DX: R93.8 Abnormal findings on diagnostic imaging of other specified body structures (principal)
CPT/HCPCS: 82565; 84520; 71260; 36415; Q9967

== ENCOUNTER → 2018-01-29 | Outpatient (CLI) | payer MEDICARE ==
--- NOTE | 2018-01-30 09:30 | MM ---
Reason for exam: screening (asymptomatic). Last mammogram was performed 1 year and 11 months ago. History: Patient is postmenopausal. US discontinued breast bx RT of the right breast, March 26, 2016. Physical Findings: A clinical breast exam by your physician is recommended on an annual basis and results should be correlated with mammographic findings. MG 3D Screening Mammo W/Cad Bilateral CC and MLO view(s) were taken. Prior study comparison: March 07, 2016, right breast MG 3d diag mammo w/cad RT. August 09, 2015, bilateral MG 3d diag mammo w/cad BILLY. The breast tissue is heterogeneously dense. This may lower the sensitivity of mammography. There is chronic nodularity bilaterally. There is no discrete abnormality. ASSESSMENT: Benign, BI-RAD 2 RECOMMENDATION: Routine screening mammogram of both breasts in 1 year.
== END | disposition home or self-care (01) ==
LOC: RADMAMWWP 12:26
PROVIDERS: ATTEND Internal Medicine
DX: Z12.31 Encounter for screening mammogram for malignant neoplasm of breast (principal)
CPT/HCPCS: 77063; 77067

== ENCOUNTER → 2018-02-05 | Outpatient (CLI) | payer MEDICARE, OTHER ==
[2018-02-05 14:40] LABS: Basophils % (A) 1 %; Eosinophils # (A) 0.2 k/uL (0-0.7); Eosinophils % (A) 2 %; HCT 46.1 % (34.0-46.0); HGB 14.7 gm/dL (11.4-16.0); Lymphocytes # (A) 2.1 k/uL (1.0-4.8); Lymphocytes % (A) 25 %; MCH 32.6 pg (25.0-35.0); MCHC 31.9 g/dL (31.0-37.0); MCV 102.2 fL (80.0-100.0); Macrocytosis Slight; Mean Platelet Volume 7.3; Monocytes # (A) 0.5 k/uL (0-1.0); Monocytes % (A) 6 %; Neutrophils # (A) 5.4 k/uL (1.3-7.7); Neutrophils % (A) 64 %; Platelet Count 267 k/uL (150-450); RBC 4.51 m/uL (3.80-5.40); RDW 14.4 % (11.5-15.5); WBC 8.5 k/uL (3.8-10.6)
[2018-02-05 14:43] LABS: Appearance,Urine Clear (Clear); Bacteria,Urine Rare /hpf; Bilirubin,Urine Negative (Negative); Blood,Urine Small (Negative); Color,Urine Yellow; Glucose,Urine (UA) Negative (Negative); Ketones,Urine Negative (Negative); Leukocyte Esterase,Urine Negative (Negative); Mucus,Urine Rare /hpf; Nitrite,Urine Negative (Negative); Protein,Urine Trace (Negative); RBC,Urine 11 /hpf (0-5); Specific Gravity,Urine 1.021 (1.001-1.035); Squamous Epithelial Cell,Urine 1 /hpf (0-4); WBC,Urine 2 /hpf (0-5)
[2018-02-05 14:58] LABS: Calcium 9.9 mg/dL (8.4-10.2); Potassium 4.2 mmol/L (3.5-5.1); Total Bilirubin 0.6 mg/dL (0.2-1.3); Total Protein 6.9 g/dL (6.3-8.2)
[2018-02-09 17:39] LABS: Large VLDL Particle Number,NMR 3.2 nmol/L (<=2.7)
== END | disposition home or self-care (01) ==
LOC: LABWHC1 12:01
PROVIDERS: ATTEND Internal Medicine
DX: I48.1 Persistent atrial fibrillation (principal); I10 Essential (primary) hypertension; M85.80 Other specified disorders of bone density and structure, unspecified site; Z12.31 Encounter for screening mammogram for malignant neoplasm of breast
CPT/HCPCS: 36415; 80053; 80061; 81001; 82306; 83704; 84443; 85025

== ENCOUNTER → 2018-07-15 | Outpatient (CLI) | payer MEDICARE, OTHER ==
[2018-07-15 10:38] LABS: Basophils # (A) 0.1 k/uL (0-0.2); Basophils % (A) 1 %; Eosinophils # (A) 0.4 k/uL (0-0.7); Eosinophils % (A) 4 %; HCT 45.4 % (34.0-46.0); HGB 14.5 gm/dL (11.4-16.0); Lymphocytes # (A) 2.3 k/uL (1.0-4.8); Lymphocytes % (A) 24 %; MCH 32.4 pg (25.0-35.0); MCHC 31.9 g/dL (31.0-37.0); MCV 101.5 fL (80.0-100.0); Macrocytosis Slight; Monocytes # (A) 0.7 k/uL (0-1.0); Monocytes % (A) 7 %; Neutrophils % (A) 61 %; Platelet Count 243 k/uL (150-450); RBC 4.48 m/uL (3.80-5.40); RDW 13.9 % (11.5-15.5); WBC 9.8 k/uL (3.8-10.6)
[2018-07-15 11:31] LABS: Appearance,Urine Clear (Clear); Bacteria,Urine Rare /hpf; Bilirubin,Urine Negative (Negative); Blood,Urine Small (Negative); Color,Urine Yellow; Glucose,Urine (UA) Negative (Negative); Hyaline Casts,Urine 7 /lpf (0-2); Ketones,Urine Negative (Negative); Leukocyte Esterase,Urine Small (Negative); Mucus,Urine Occasional /hpf; Nitrite,Urine Negative (Negative); PH, Urine 5.5 (5.0-8.0); Protein,Urine 1+ (Negative); RBC,Urine 4 /hpf (0-5); Specific Gravity,Urine 1.027 (1.001-1.035); Squamous Epithelial Cell,Urine 2 /hpf (0-4); Urobilinogen,Urine <2.0 mg/dL (<2.0); WBC,Urine 2 /hpf (0-5)
[2018-07-15 16:34] LABS: Albumin 4.2 g/dL (3.80-4.90); Anion Gap 7.1 mmol/L (4.00-12.00); Calcium 9.4 mg/dL (8.7-10.3); Carbon Dioxide 34.9 mmol/L (21.6-31.8); Globulin 2.1 g/dL (1.6-3.3); LDL Cholesterol,Calculated 78.8 mg/dL (0.0-131.0); Potassium 4.3 mmol/L (3.5-5.5); Total Bilirubin 0.7 mg/dL (0.2-1.2); Total Protein 6.3 g/dL (6.2-8.2); VLDL Calculation 20.2 mg/dL (5.00-40.00)
== END ==
LOC: LABWHC1 09:31
PROVIDERS: ATTEND Internal Medicine
DX: I10 Essential (primary) hypertension (principal); E55.9 Vitamin D deficiency, unspecified
CPT/HCPCS: 36415; 80053; 80061; 81001; 82306; 85025

== ENCOUNTER 2018-09-17 17:45 | Inpatient (IN) | payer MEDICARE, OTHER ==
[2018-09-17] MEDS ORDERED: ALBUTEROL NEBULIZED 2.5 MG/3 ML INHALATION STA (20:11)
[2018-09-17] MEDS ORDERED: methylPREDNISolone SOD SUCCI 125 MG/2 ML VIAL IV STA ×2 (20:11→22:07)
[2018-09-17] MEDS ORDERED: IPRATROPIUM 0.5 MG/2.5 ML NEBU INHALATION STA (20:11)
[2018-09-17 20:18] LABS: HCT 47.8 % (34.0-46.0); HGB 15.6 gm/dL (11.4-16.0); MCH 32.6 pg (25.0-35.0); MCHC 32.7 g/dL (31.0-37.0); MCV 99.7 fL (80.0-100.0); Mean Platelet Volume 7.7; Platelet Count 231 k/uL (150-450); RBC 4.79 m/uL (3.80-5.40); RDW 13.6 % (11.5-15.5); WBC 8.9 k/uL (3.8-10.6)
[2018-09-17 20:26] LABS: INR 1.2 (<1.2); Partial Thromboplastin Time 49.2 sec (22.0-30.0); Prothrombin Time 12.1 sec (9.0-12.0)
[2018-09-17 20:36] LABS: ALT 15 U/L (9-52); AST 38 U/L (14-36); African American GFR (CKD) >90 (>60 ml/min/1.73 sqM); Albumin 4.3 g/dL (3.5-5.0); Alkaline Phosphatase 76 U/L (38-126); Anion Gap 8 mmol/L; Blood Urea Nitrogen 17 mg/dL (7-17); Calcium 9.8 mg/dL (8.4-10.2); Carbon Dioxide 33 mmol/L (22-30); Chloride 98 mmol/L (98-107); Glucose 115 mg/dL (74-99); Potassium 3.5 mmol/L (3.5-5.1); Sodium 139 mmol/L (137-145); Total Bilirubin 0.8 mg/dL (0.2-1.3); Total Protein 7.2 g/dL (6.3-8.2)
[2018-09-17] MEDS ORDERED: ASPIRIN 325 MG TAB PO STA (20:48)
[2018-09-17 21:04] LABS: Eosinophils # (M) 0.18 k/uL (0-0.7); Lymphocytes # (M) 2.49 k/uL (1.0-4.8); Monocytes # (M) 0.71 k/uL (0-1.0); Neutrophils # (M) 5.52 k/uL (1.3-7.7); Neutrophils % (M) 62 %; Nucleated Red Blood Cells 0 /100 WBC (0-0); Total Cells Counted 100
--- NOTE | 2018-09-17 21:30 | XR ---
EXAMINATION: XR chest 2V DATE AND TIME: 09/17/2018 8:25 PM CLINICAL INDICATION: PHH; difficulty breathing TECHNIQUE: Departmental protocol COMPARISON: 08/11/2018 FINDINGS: The lungs are clear. The pleural spaces are negative. The cardiac silhouette is moderately enlarged. The skeletal structures and soft tissues are negative for acute findings. IMPRESSION: No acute pulmonary/pleural process.
--- NOTE | 2018-09-17 21:37 | ED ---
SOB HPI - General Chief Complaint: Shortness of Breath Stated Complaint: MERRICK Time Seen by Provider: 09/17/18 20:10 Source: patient Mode of arrival: wheelchair Limitations: no limitations - History of Present Illness Initial Comments: 73-year-old female patient with past medical history significant for COPD, A. fib, asthma, acid reflux, hypertension, and hyperlipidemia, presents to the emergency department today for evaluation of shortness of breath and chest discomfort. Patient states she's been symptomatic for the last one to 2 days. Patient states last evening she did have an episode where she is having increased difficulty breathing, was gasping for air, and became sweaty. States she is having some discomfort to the substernal region, states it feels like it is "catching" when she takes a breath. Denies any nausea or vomiting. Denies any abdominal pain. Denies any back pain. Patient states she did do 2 breathing treatments at home today which did not seem to help her symptoms. States that she has had a productive cough since Saturday. Denies any hemoptysis with this. Patient denies any recent rash, fever, chills, abdominal pain, nausea, vomiting, diarrhea, constipation, numbness, tingling, dizziness, weakness, hematuria, dysuria, urinary urgency, urinary frequency, headache, visual changes, or any other complaints. - Related Data Home Medications Medication Instructions Recorded Confirmed Albuterol Inhaler [Ventolin Hfa 2 puff INHALATION RT-QID PRN 07/20/15 09/17/18 Inhaler] Baclofen [Lioresal] 10 mg PO TID PRN 07/20/15 09/17/18 Dabigatran [Pradaxa] 150 mg PO BID 07/20/15 09/17/18 Hydrocodone/Acetaminophen [[place] 1 tab PO QID PRN 07/20/15 09/17/18 7.5-325] Moexipril [Univasc] 7.5 mg PO BID 07/20/15 09/17/18 Pravastatin Sodium [Pravachol] 40 mg PO DAILY 07/20/15 09/17/18 Verapamil HCl [Verapamil ER] 240 mg PO BID 04/11/16 09/17/18 Latanoprost [Xalatan 0.005%] 1 drop BOTH EYES HS 10/15/16 09/17/18 Nadolol 40 mg PO DAILY 10/15/16 09/17/18 Omeprazole [PriLOSEC] 20 mg PO DAILY 01/16/17 09/17/18 Albuterol Nebulized [Ventolin 2.5 mg INHALATION RT-TID 08/11/17 09/17/18 Nebulized] Budesonide/Formoterol Fumarate 2 puff INHALATION RT-BID 08/11/17 09/17/18 [Symbicort 160-4.5 Mcg Inhaler] Clotrimazole Real [Mycelex 10 mg MUCOUS MEM TID 09/17/18 09/17/18 Real] Cyanocobalamin (Vitamin B-12) 1,000 mcg PO DAILY 09/17/18 09/17/18 [Vitamin B-12] Allergies Allergy/AdvReac Type Severity Reaction Status Date / Time No Known Allergies Allergy Verified 09/17/18 21:01 Review of Systems ROS Statement: Those systems with pertinent positive or pertinent negative responses have been documented in the HPI. ROS Other: All systems not noted in ROS Statement are negative. Past Medical History Past Medical History: Atrial Fibrillation, Asthma, COPD, GERD/Reflux, Hyperlipidemia, Hypertension, Osteoarthritis (OA), Pneumonia Additional Past Medical History / Comment(s): DJD, VARICOSE VEINS, BRONCHITIS, GLAUCOMA, stomach ULCER,DIVERTICULITIS,constipation History of Any Multi-Drug Resistant Organisms: None Reported Past Surgical History: Adenoidectomy, Appendectomy, Heart Catheterization, Hysterectomy, Tonsillectomy, Tubal Ligation Additional Past Surgical History / Comment(s): BILLY CATARACTS. Past Anesthesia/Blood Transfusion Reactions: No Reported Reaction Past Psychological History: No Psychological Hx Reported Smoking Status: Never smoker Past Alcohol Use History: None Reported Past Drug Use History: None Reported - Past Family History Father Family Medical History: COPD Additional Family Medical History / Comment(s): EMPHYSEMA Mother Family Medical History: Osteoarthritis (OA) Additional Family Medical History / Comment(s): EMPHYSEMA, BOWEL OBSTRUCTION/COLOSTOMY General Exam Limitations: no limitations General appearance: alert, in no apparent distress, other (This is a well- developed, well-nourished adult female patient in no acute distress. Vital signs upon presentation are temperature 98.6F, pulse 74, respirations 16, blood pressure 142/83, pulse ox 95% on room air.) Eye exam: Present: normal appearance, PERRL, EOMI. Absent: scleral icterus, conjunctival injection, periorbital swelling ENT exam: Present: normal exam, normal oropharynx, mucous membranes moist Respiratory exam: Present: wheezes (Coarse expiratory wheezing noted throughout the posterior lung jackson). Absent: normal lung sounds bilaterally, respiratory distress, rales, rhonchi, stridor Cardiovascular Exam: Present: regular rate, normal rhythm, normal heart sounds. Absent: systolic murmur, diastolic murmur, rubs, gallop, clicks GI/Abdominal exam: Present: soft, normal bowel sounds. Absent: distended, tenderness, guarding, rebound, rigid Neurological exam: Present: alert, oriented X3, CN II-XII intact Psychiatric exam: Present: normal affect, normal mood Skin exam: Present: warm, dry, intact, normal color. Absent: rash Course Vital Signs 09/17/18 09/17/18 09/17/18 18:12 20:45 21:07 Temperature 98.6 F Pulse Rate 74 74 74 Respiratory 16 Rate Blood Pressure 142/83 O2 Sat by Pulse 95 Oximetry Medical Decision Making - Medical Decision Making 73-year-old female patient presented to the emergency department today for evaluation of increased shortness of breath with productive cough. Physical examination revealed coarse expiratory wheezing noted throughout the posterior lung jackson. Patient was tachypneic. Labs reviewed and did reveal elevated troponin at 0.08. Chest x-ray showed no acute cardiopulmonary process. She was given breathing treatment steroids here in the emergency department. She does report improvement of symptoms after receiving this. Patient will be admitted for further evaluation by cardiology. We will perform serial troponins. Patient is anticoagulated with pradaxa. EKG as needed. I did discuss findings and results with the patient, she is agreeable this plan. - Lab Data Result diagrams: 09/17/18 20:00 09/17/18 20:00 Lab Results 09/17/18 09/17/18 09/17/18 Range/Units 20:00 20:00 20:00 WBC 8.9 (3.8-10.6) k/uL RBC 4.79 (3.80-5.40) m/uL Hgb 15.6 (11.4-16.0) gm/dL Hct 47.8 H (34.0-46.0) % MCV 99.7 (80.0-100.0) fL MCH 32.6 (25.0-35.0) pg MCHC 32.7 (31.0-37.0) g/dL RDW 13.6 (11.5-15.5) % Plt Count 231 (150-450) k/uL Neutrophils % (Manual) 62 % Lymphocytes % (Manual) 28 % Monocytes % (Manual) 8 % Eosinophils % (Manual) 2 % Neutrophils # (Manual) 5.52 (1.3-7.7) k/uL Lymphocytes # (Manual) 2.49 (1.0-4.8) k/uL Monocytes # (Manual) 0.71 (0-1.0) k/uL Eosinophils # (Manual) 0.18 (0-0.7) k/uL Nucleated RBCs 0 (0-0) /100 WBC Manual Slide Review Performed PT 12.1 H (9.0-12.0) sec INR 1.2 H (<1.2) APTT 49.2 H (22.0-30.0) sec Sodium 139 (137-145) mmol/L Potassium 3.5 (3.5-5.1) mmol/L Chloride 98 (98-107) mmol/L Carbon Dioxide 33 H (22-30) mmol/L Anion Gap 8 mmol/L BUN 17 (7-17) mg/dL Creatinine 0.75 (0.52-1.04) mg/dL Est GFR (CKD-EPI)AfAm >90 (>60 ml/min/1.73 sqM) Est GFR (CKD-EPI)NonAf 79 (>60 ml/min/1.73 sqM) Glucose 115 H (74-99) mg/dL Calcium 9.8 (8.4-10.2) mg/dL Total Bilirubin 0.8 (0.2-1.3) mg/dL AST 38 H (14-36) U/L ALT 15 (9-52) U/L Alkaline Phosphatase 76 (38-126) U/L Troponin I (0.000-0.034) ng/mL Total Protein 7.2 (6.3-8.2) g/dL Albumin 4.3 (3.5-5.0) g/dL 09/17/18 Range/Units 20:00 WBC (3.8-10.6) k/uL RBC (3.80-5.40) m/uL Hgb (11.4-16.0) gm/dL Hct (34.0-46.0) % MCV (80.0-100.0) fL MCH (25.0-35.0) pg MCHC (31.0-37.0) g/dL RDW (11.5-15.5) % Plt Count (150-450) k/uL Neutrophils % (Manual) % Lymphocytes % (Manual) % Monocytes % (Manual) % Eosinophils % (Manual) % Neutrophils # (Manual) (1.3-7.7) k/uL Lymphocytes # (Manual) (1.0-4.8) k/uL Monocytes # (Manual) (0-1.0) k/uL Eosinophils # (Manual) (0-0.7) k/uL Nucleated RBCs (0-0) /100 WBC Manual Slide Review PT (9.0-12.0) sec INR (<1.2) APTT (22.0-30.0) sec Sodium (137-145) mmol/L Potassium (3.5-5.1) mmol/L Chloride (98-107) mmol/L Carbon Dioxide (22-30) mmol/L Anion Gap mmol/L BUN (7-17) mg/dL Creatinine (0.52-1.04) mg/dL Est GFR (CKD-EPI)AfAm (>60 ml/min/1.73 sqM) Est GFR (CKD-EPI)NonAf (>60 ml/min/1.73 sqM) Glucose (74-99) mg/dL Calcium (8.4-10.2) mg/dL Total Bilirubin (0.2-1.3) mg/dL AST (14-36) U/L ALT (9-52) U/L Alkaline Phosphatase (38-126) U/L Troponin I 0.082 H* (0.000-0.034) ng/mL Total Protein (6.3-8.2) g/dL Albumin (3.5-5.0) g/dL - EKG Data -: EKG Interpreted by [facility] EKG Comments: EKG obtained at 2000 shows normal sinus rhythm with a prolonged QT interval. Ventricular rate is 70, NE interval 194, QRS duration 86, QTc 460, QTC 496 per no evidence of ST elevation or depression. - Radiology Data Radiology results: report reviewed, image reviewed Two-view x-ray of the chest is obtained. Report was reviewed in its entirety. Impression by Dr. Shamir Castillo shows no acute pulmonary/pleural process. Disposition Clinical Impression: Dyspnea, Chest pain Disposition: ADMITTED IP TO THIS [facility] Condition: Serious Referrals: Faizan Estrella MD [Primary Care Provider] - 1-2 days Decision to Admit Reason: Admit from EC Decision Date: 09/17/18 Decision Time: 22:07
[2018-09-17] MEDS ORDERED: NALOXONE 0.4 MG/ML 1 ML VIAL IV PRN (22:03)
[2018-09-17] MEDS ORDERED: LATANOPROST 0.005% OPHTH DROPS 2.5 ML BTL BOTH EYES ONE (22:30)
[2018-09-17] MEDS ORDERED: VERAPAMIL 40 MG TAB PO STA (22:55)
[2018-09-17] MEDS ORDERED: BACLOFEN 10 MG TAB PO STA (22:55)
[2018-09-17] MEDS ORDERED: LISINOPRIL 5 MG TAB PO STA (22:55)
[2018-09-17] MEDS ORDERED: DABIGATRAN 150 MG CAP PO ONE (23:30)
[2018-09-18] MEDS: methylPREDNISolone SOD SUCCI 125 MG/2 ML VIAL IV SCH ×4 (01:32→17:12)
[2018-09-18] MEDS: ALBUTEROL NEBULIZED 2.5 MG/3 ML INHALATION SCH ×2 (08:07→12:02)
[2018-09-18] MEDS: SYMBICORT 160-4.5 MCG INHALER INHALATION SCH ×2 (08:08→21:16)
[2018-09-18] MEDS ORDERED: ALBUTEROL NEBULIZED 2.5 MG/3 ML INHALATION PRN (09:28)
--- NOTE | 2018-09-18 10:35 | P.CRDCN ---
History of Present Illness Consult date: 09/18/18 Requesting physician: Alyssa Agee Reason for Consult (text): Abnormal troponins Chief complaint: Cough, shortness of breath, chest discomfort History of present illness: This is a pleasant 73-year-old female who follows with Dr. Gonzalez in the office. She has a known history of hypertension, hyperlipidemia, sinus tachycardia, COPD, asthma, questionable paroxysmal atrial fibrillation in the past, she presents to the hospital with symptoms of a cough, worsening in her shortness of breath and some chest discomfort. According to the patient, she had attended a wedding over the weekend, felt after 2 days that she was developing a cold, she states that when she takes a deep breath, she has some discomfort in the center of her chest near her epigastric area. Patient denies any nausea or vomiting. At home she states that she did take additional breathing treatments without relief of symptoms. According to the patient, she has undergone a cardiac catheterization in the past which is several years ago, according to her this was normal. Her chest x-ray on admission did not reveal any acute pulmonary process. Her EKG on admission here showed a normal sinus rhythm with no acute changes noted. Blood pressure 138/75 heart rate in the 70s, she is afebrile. White blood cell count is normal at 8.9, hemoglobin 15.6, platelet count 231. Sodium 139, potassium 3.5, BUN 17 and creatinine 0.7. Troponins 0.08, 0.16, 0.09. The patient is very hard of hearing. At the time of my examination this morning, she denies any shortness of breath or chest discomfort. Most recent echocardiogram with Doppler study was performed in April of this year and revealed a normal left ventricular systolic function I Past Medical History Past Medical History: Atrial Fibrillation, Asthma, COPD, GERD/Reflux, Hyperlipidemia, Hypertension, Osteoarthritis (OA), Pneumonia Additional Past Medical History / Comment(s): DJD, VARICOSE VEINS, BRONCHITIS, GLAUCOMA, stomach ULCER,DIVERTICULITIS,constipation History of Any Multi-Drug Resistant Organisms: None Reported Past Surgical History: Adenoidectomy, Appendectomy, Heart Catheterization, Hysterectomy, Tonsillectomy, Tubal Ligation Additional Past Surgical History / Comment(s): BILLY CATARACTS. Past Anesthesia/Blood Transfusion Reactions: No Reported Reaction Past Psychological History: No Psychological Hx Reported Smoking Status: Never smoker Past Alcohol Use History: None Reported Past Drug Use History: None Reported - Past Family History Father Family Medical History: COPD Additional Family Medical History / Comment(s): EMPHYSEMA Mother Family Medical History: Osteoarthritis (OA) Additional Family Medical History / Comment(s): EMPHYSEMA, BOWEL OBSTRUCTION/COLOSTOMY Medications and Allergies Home Medications Medication Instructions Recorded Confirmed Type Albuterol Inhaler [Ventolin Hfa 2 puff INHALATION RT-QID PRN 07/20/15 09/17/18 History Inhaler] Baclofen [Lioresal] 10 mg PO TID PRN 07/20/15 09/17/18 History Dabigatran [Pradaxa] 150 mg PO BID 07/20/15 09/17/18 History Hydrocodone/Acetaminophen [[place] 1 tab PO QID PRN 07/20/15 09/17/18 History 7.5-325] Moexipril [Univasc] 7.5 mg PO BID 07/20/15 09/17/18 History Pravastatin Sodium [Pravachol] 40 mg PO DAILY 07/20/15 09/17/18 History Verapamil HCl [Verapamil ER] 240 mg PO BID 04/11/16 09/17/18 History Latanoprost [Xalatan 0.005%] 1 drop BOTH EYES HS 10/15/16 09/17/18 History Nadolol 40 mg PO DAILY 10/15/16 09/17/18 History Omeprazole [PriLOSEC] 20 mg PO DAILY 01/16/17 09/17/18 History Albuterol Nebulized [Ventolin 2.5 mg INHALATION RT-TID 08/11/17 09/17/18 History Nebulized] Budesonide/Formoterol Fumarate 2 puff INHALATION RT-BID 08/11/17 09/17/18 History [Symbicort 160-4.5 Mcg Inhaler] Clotrimazole Real [Mycelex 10 mg MUCOUS MEM TID 09/17/18 09/17/18 History Real] Cyanocobalamin (Vitamin B-12) 1,000 mcg PO DAILY 09/17/18 09/17/18 History [Vitamin B-12] Allergies Allergy/AdvReac Type Severity Reaction Status Date / Time No Known Allergies Allergy Verified 09/17/18 21:01 Physical Exam Vitals: Vital Signs Temp Pulse Pulse Resp BP BP Pulse Ox 09/18/18 08:23 74 09/18/18 08:09 70 09/18/18 04:00 96.9 F L 71 20 138/75 96 09/17/18 23:21 73 18 157/78 98 09/17/18 22:00 70 18 183/84 99 09/17/18 21:07 74 09/17/18 21:00 70 20 171/82 97 09/17/18 20:45 74 09/17/18 20:00 72 20 188/84 97 09/17/18 18:12 98.6 F 74 16 142/83 95 Intake and Output 09/17/18 09/18/18 09/18/18 22:59 06:59 14:59 Other: Weight 54.885 kg PHYSICAL EXAMINATION: GENERAL: 83-year-old female in no acute distress at the time of my examination HEENT: Head is atraumatic, normocephalic. Pupils equal, round. Sclera anicteric. Conjunctiva are clear. Mucous membranes of the mouth are moist. Neck is supple. There is no elevated jugular venous pressure. No carotid bruit is heard. HEART EXAMINATION: Heart S1, S2 normal. No murmur or gallop heard. CHEST EXAMINATION: And's reveal scattered coarse rhonchi and wheezing throughout with decreased air exchange ABDOMEN: Soft, nontender. Bowel sounds are heard. No organomegaly noted. EXTREMITIES: 2+ peripheral pulses with no evidence of peripheral edema and no calf tenderness noted. NEUROLOGIC patient is awake, alert and oriented 3 . . Results 09/17/18 20:00 09/17/18 20:00 Cardiac Enzymes 09/17/18 09/17/18 09/18/18 Range/Units 20:00 20:00 02:24 AST 38 H (14-36) U/L Troponin I 0.082 H* 0.168 H* (0.000-0.034) ng/mL 09/18/18 Range/Units 07:52 AST (14-36) U/L Troponin I 0.091 H* (0.000-0.034) ng/mL Coagulation 09/17/18 Range/Units 20:00 PT 12.1 H (9.0-12.0) sec APTT 49.2 H (22.0-30.0) sec CBC 09/17/18 Range/Units 20:00 WBC 8.9 (3.8-10.6) k/uL RBC 4.79 (3.80-5.40) m/uL Hgb 15.6 (11.4-16.0) gm/dL Hct 47.8 H (34.0-46.0) % Plt Count 231 (150-450) k/uL Comprehensive Metabolic Panel 09/17/18 Range/Units 20:00 Sodium 139 (137-145) mmol/L Potassium 3.5 (3.5-5.1) mmol/L Chloride 98 (98-107) mmol/L Carbon Dioxide 33 H (22-30) mmol/L BUN 17 (7-17) mg/dL Creatinine 0.75 (0.52-1.04) mg/dL Glucose 115 H (74-99) mg/dL Calcium 9.8 (8.4-10.2) mg/dL AST 38 H (14-36) U/L ALT 15 (9-52) U/L Alkaline Phosphatase 76 (38-126) U/L Total Protein 7.2 (6.3-8.2) g/dL Albumin 4.3 (3.5-5.0) g/dL Current Medications Generic Name Dose Route Start Last Admin Trade Name Freq PRN Reason Stop Dose Admin Hydrocodone Bitart/Acetaminophen 1 each 09/17/18 22:06 [place] 7.5-325 PO QID PRN Moderate Pain Albuterol Sulfate 2.5 mg 09/18/18 08:00 09/18/18 08:07 Ventolin Nebulized INHALATION 2.5 mg RT-TID RIGOBERTO Administration Albuterol Sulfate 2.5 mg 09/18/18 09:28 Ventolin Nebulized INHALATION RT-QID PRN Shortness Of Breath Baclofen 10 mg 09/17/18 22:06 Lioresal PO TID PRN Muscle Spasm Budesonide/Formoterol Fumarate 2 puff 09/18/18 08:00 09/18/18 08:08 Symbicort 160-4.5 Mcg Inhaler INHALATION 2 puff RT-BID RIGOBERTO Administration Clotrimazole 10 mg 09/18/18 09:00 Mycelex Real MUCOUS MEM TID RIGOBERTO Cyanocobalamin 1,000 mcg 09/18/18 09:00 Vitamin B-12 PO DAILY [facility] Dabigatran 150 mg 09/18/18 09:00 Pradaxa PO BID [facility] Latanoprost 1 drops 09/18/18 21:00 Xalatan 0.005% BOTH EYES HS [facility] Lisinopril 20 mg 09/18/18 09:00 Zestril PO DAILY [facility] Methylprednisolone Sodium Succinate 60 mg 09/18/18 00:00 09/18/18 01:32 Solu-Medrol IV 60 mg Q6HR RIGOBERTO Administration Nadolol 40 mg 09/18/18 09:00 Corgard PO DAILY [facility] Naloxone HCl 0.2 mg 09/17/18 22:03 Narcan IV Q2M PRN Opioid Reversal Pantoprazole Sodium 40 mg 09/18/18 09:00 Protonix PO DAILY [facility] Pravastatin Sodium 40 mg 09/18/18 09:00 Pravachol PO DAILY RIGOBERTO Verapamil HCl 240 mg 09/18/18 09:00 Isoptin Sr PO BID RIGOBERTO Intake and Output 09/17/18 09/18/18 09/18/18 22:59 06:59 14:59 Other: Weight 54.885 kg 09/17/18 20:00 09/17/18 20:00 EKG Interpretations (text) EKG shows a normal sinus rhythm with no acute changes. Assessment and Plan Plan: Assessment and plan #1 symptoms of cough, nonproductive and worsening shortness of breath. One episode of chest discomfort, mid epigastric area. EKG shows normal sinus rhythm with no acute changes. Troponin 0.08, 0.16, 0.09. Representing a type to myocardial injury #2 COPD with possible exacerbation, mild fever of 100 on arrival, white blood cell count is normal. Afebrile since #2 hypertension #3 history of chronic bronchial asthma #4 history of sinus tachycardia #5 questionable history of prior paroxysmal atrial fibrillation Plan We will repeat an echocardiogram with Doppler study. We'll start the patient on a baby aspirin. We will repeat an EKG this morning. Further recommendations to follow. DNP note has been reviewed, I agree with a documented findings and plan of care. Patient was seen and examined.
[2018-09-18] MEDS ORDERED: AMINOPHYLLINE 500 MG/20 ML VIAL IV PRN (10:41)
[2018-09-18] MEDS ORDERED: CAFFEINE CITRATE 60 MG/3 ML VIAL IV PRN (10:41)
[2018-09-18] MEDS ORDERED: REGADENOSON 0.4 MG/5 ML SYRINGE IV ONE (10:41)
[2018-09-18] MEDS ORDERED: ARTIFICIAL TEARS-HYPROMELLOSE DROPS 15 ML BTL BOTH EYES PRN (10:47)
[2018-09-18] MEDS: PRAVASTATIN SODIUM 40 MG TAB PO SCH (10:57)
[2018-09-18] MEDS: VERAPAMIL SR 240 MG TABLET.ER PO SCH ×2 (10:57→21:52)
[2018-09-18] MEDS: PANTOPRAZOLE 40 MG TABLET PO SCH (10:57)
[2018-09-18] MEDS: LISINOPRIL 20 MG TAB PO SCH (10:57)
[2018-09-18] MEDS: BACLOFEN 10 MG TAB PO PRN ×2 (11:01→19:44)
[2018-09-18 14:23] VITALS: BMI 22.1
[2018-09-18] MEDS: CLOTRIMAZOLE TROCHE 10 MG TROCHE MUCOUS MEM SCH ×3 (16:03→21:52)
[2018-09-18] MEDS: CYANOCOBALAMIN 500 MCG TAB PO SCH (16:08)
[2018-09-18] MEDS: DABIGATRAN 150 MG CAP PO SCH ×2 (16:08→21:52)
[2018-09-18] MEDS: NADOLOL 20 MG TAB PO SCH (16:08)
[2018-09-18] MEDS: ASPIRIN 81 MG PO SCH (16:08)
[2018-09-18 17:09] LABS: Glucose,Whole Blood 132 mg/dL (75-99)
[2018-09-18] MEDS: INSULIN ASPART (NovoLOG) 100 UNIT/ML VIAL SQ SCH ×3 (17:12→21:57)
--- NOTE | 2018-09-18 19:41 | HP ---
HISTORY AND PHYSICAL DATE OF ADMISSION: 09/17/2018 DATE OF SERVICE: 09/18/2018 PRESENTING COMPLAINT: Shortness of breath, cough. HISTORY OF PRESENTING COMPLAINT: This is a very pleasant 73-year-old patient who follows with Dr. Faizan Estrella. Patient's chronic stable medical conditions include GERD, hyperlipidemia, hypertension, osteoarthritis and paroxysmal atrial fibrillation. Patient 5 days ago attended a wedding and was feeling cold. It was quite cold, and she felt something was coming on. She did not feel well the next day, then symptoms actually improved. Two days ago she started having severe bouts of coughing, breaking out in a sweat, dizzy, short of breath, wheezing, felt rather terrible. Appetite went down. She finally decided to decided to present to the ER, as symptoms were played up. She was given bronchodilators in the ER, with which she did feel a bit better. There was a rise and fall of troponin; hence Cardiology was consulted for the same. The patient is unsure if she had any chest discomfort. Additionally, the patient has noted for months that sometimes food gets stuck in the lower part of the chest and sometimes she has to take liquids to wash it down. This happens occasionally, not on a daily basis. Patient was seen by Cardiology earlier today. REVIEW OF SYSTEMS: CONSTITUTIONAL: Tired. HEENT: None. RESPIRATORY: As above. No sputum. CARDIOVASCULAR: Questionable chest pressure. GASTROINTESTINAL: Incontinence. HEMATOLOGICAL: None. LYMPHATICS: None. PSYCHIATRY: None. NEUROLOGICAL: None. MUSCULOSKELETAL: Arthritic pain in the joints. DERMATOLOGICAL: None. GI: As above. PAST MEDICAL HISTORY: 1. Asthma. 2. GERD. 3. Hyperlipidemia. 4. Hypertension. 5. Osteoarthritis. 6. Atrial fibrillation. 7. Diverticulitis. PAST SURGICAL HISTORY: 1. Adenoidectomy. 2. Appendectomy. 3. Cardiac catheterization. 4. Hysterectomy. 5. Tonsillectomy. 6. Tubal ligation. 7. Bilateral cataracts. SOCIAL HISTORY: No smoking. No alcohol. Lives by herself. FAMILY HISTORY: COPD. HOME MEDICATIONS: 1. Verapamil ER 240 mg b.i.d. 2. Pravachol 40 mg p.o. daily. 3. Prilosec 20 mg p.o. daily. 4. Nadolol 40 mg p.o. daily. 5. Univasc 7.5 b.i.d. 6. Xalatan 0.005% one drop to both eyes at bedtime. 7. [place] 7.5 one tablet q.i.d. p.r.n. 8. Pradaxa 150 mg b.i.d. 9. Vitamin B12 1000 mcg p.o. daily. 10.Mycelex Real 1000 mg mucous membrane t.i.d. 11.Symbicort 160/4.5 two puffs b.i.d. 12.Baclofen 10 mg p.o. t.i.d. p.r.n. 13.Ventolin 2.5 t.i.d. plus 2 puffs q.i.d. p.r.n. ALLERGIES: NONE. PHYSICAL EXAMINATION: VITAL SIGNS ON PRESENTATION: Temperature 98.6, pulse 74, respiration 16, blood pressure 142/83, pulse ox 95% on room air. GENERAL APPEARANCE: Average build. Sitting up. A bit tired. EYES: Pupils equal. Conjunctivae normal. HEENT: External appearance of nose and ears normal. Oral cavity normal. NECK: JVD not raised. Mass not palpable. RESPIRATORY: Effort increased. LUNGS: Diminished breath sounds. Prolonged expiration. CARDIOVASCULAR: Heart sounds irregular. No edema. ABDOMEN: Soft, non-tender. Liver and spleen not palpable. LYMPHATIC: No lymph node palpable in neck or axillae. PSYCHIATRY: Alert and oriented x3. Mood and affect normal. NEUROLOGICAL: Pupils equal. Cranial nerves grossly intact. Power and sensation grossly intact. MUSCULOSKELETAL: Evidence of osteoarthritis, especially in the hands. INVESTIGATIONS: Labs reviewed in the clinical context. White count 8.9, hemoglobin 15.6, potassium 3.5. BUN and creatinine normal. Troponin 0.082, 0.168, 0.091. EKG tracing shows slight ST-segment depression in anterolateral leads. Chest x-ray film, personally reviewed by me, does not show any acute infiltrates. ASSESSMENT: 1. Possible acute non-Q-wave myocardial infarction with rise and fall in troponin and some ST-segment depression across the leads. 2. Acute exacerbation of moderate persistent asthma. 3. Gastroesophageal reflux disease. 4. Hyperlipidemia. 5. Essential hypertension. 6. Primary osteoarthritis in multiple joints, bilateral. 7. Paroxysmal atrial fibrillation, currently in sinus rhythm. 8. Intermittent dysphagia to solid foods. Need to rule out esophageal narrowing. PLAN: Home medications are resumed. Patient is put on bronchodilators and IV steroids. Cardiology was consulted. The patient is also on aspirin. Currently no chest pain. Accu-Cheks will be followed. Care was discussed with the patient. Follow with Cardiology. They have ordered a stress test and a Doppler. Also a barium swallow will be done tomorrow morning to evaluate the patient's lower esophagus. Will also consult GI for the intermittent dysphagia. MMODL / IJN: [id number] /
[2018-09-18] MEDS: HYDROcodone/APAP 7.5-325MG 1 EACH TAB PO PRN (19:43)
[2018-09-18] MEDS ORDERED: LATANOPROST 0.005% OPHTH DROPS 2.5 ML BTL BOTH EYES SCH (21:00)
[2018-09-18] MEDS: IPRATROPIUM-ALBUTEROL 3 ML NEB INHALATION SCH ×2 (21:16→23:49)
[2018-09-18 21:47] LABS: Glucose,Whole Blood 138 mg/dL (75-99)
[2018-09-18] MEDS: methylPREDNISolone SOD SUCCI 40 MG/ML 1 ML VIAL IV SCH (22:56)
[2018-09-19 06:15] LABS: Glucose,Whole Blood 131 mg/dL (75-99)
[2018-09-19] MEDS: INSULIN ASPART (NovoLOG) 100 UNIT/ML VIAL SQ SCH ×3 (06:42→17:32)
[2018-09-19] MEDS: SYMBICORT 160-4.5 MCG INHALER INHALATION SCH (07:30)
[2018-09-19] MEDS: IPRATROPIUM-ALBUTEROL 3 ML NEB INHALATION SCH ×3 (07:31→15:35)
[2018-09-19 08:45] VITALS: RESP 16; TEMP 97.8
--- NOTE | 2018-09-19 10:47 | NM ---
EXAMINATION TYPE: NM stress lexiscan cardiolite DATE OF EXAM: 09/19/2018 COMPARISON: NONE HISTORY: Precordial chest pain and abnormal EKG TECHNIQUE: After the intravenous administration of 9.9 mCi Tc 99m Sestamibi - Cardiolite resting SPE CT images acquired 45 minutes post injection. The patient received 0.4mg Lexiscan, 25.0 mCi Tc 99m Sestamibi - Stress images obtained [address] injection FINDINGS: Review of stress and rest SPECT images demonstrates no distinct perfusion abnormality. Gated analysi s shows normal wall motion with an estimated left ventricular ejection fraction of 69 %. IMPRESSION: No scintigraphic evidence for reversible ischemia.
--- NOTE | 2018-09-19 11:29 | FL ---
EXAMINATION TYPE: FL barium swallow DATE OF EXAM: 09/19/2018 CLINICAL HISTORY: Solid food getting stuck in lower chest, dysphasia. TECHNIQUE: A double contrast esophagram is performed utilizing air and barium. A total of 17 second s of fluoroscopic time was utilized during procedure. 58 spot images are saved during procedure. COMPARISON: None FINDINGS: The esophagus shows satisfactory motility and emptying into the stomach. No evidence of hi atal hernia or stricture noted. No suspicious mucosal mass is evident. No significant gastroesophagea l reflux was seen during real time performance of this study. IMPRESSION: No significant abnormality is seen to account for patient's symptoms of lower thoracic d ysphasia.
[2018-09-19 11:48] LABS: Glucose,Whole Blood 134 mg/dL (75-99)
[2018-09-19] MEDS: methylPREDNISolone SOD SUCCI 40 MG/ML 1 ML VIAL IV SCH ×2 (12:00→17:56)
[2018-09-19] MEDS: NADOLOL 20 MG TAB PO SCH (12:00)
[2018-09-19] MEDS: PRAVASTATIN SODIUM 40 MG TAB PO SCH (12:01)
[2018-09-19] MEDS: LISINOPRIL 20 MG TAB PO SCH (12:01)
[2018-09-19] MEDS: VERAPAMIL SR 240 MG TABLET.ER PO SCH (12:01)
[2018-09-19] MEDS: ASPIRIN 81 MG PO SCH (12:01)
[2018-09-19] MEDS: HYDROcodone/APAP 7.5-325MG 1 EACH TAB PO PRN (12:01)
[2018-09-19] MEDS: DABIGATRAN 150 MG CAP PO SCH (12:01)
[2018-09-19] MEDS: CLOTRIMAZOLE TROCHE 10 MG TROCHE MUCOUS MEM SCH ×2 (12:01→17:56)
[2018-09-19] MEDS: PANTOPRAZOLE 40 MG TABLET PO SCH (12:01)
[2018-09-19] MEDS: CYANOCOBALAMIN 500 MCG TAB PO SCH (12:01)
[2018-09-19] MEDS ORDERED: guaiFENesin 600 MG TABLET.ER PO SCH (12:15)
[2018-09-19] MEDS: BACLOFEN 10 MG TAB PO PRN (12:36)
--- NOTE | 2018-09-19 14:14 | ECHOF ---
Referral Reason:elevated trop MEASUREMENTS -------- HEIGHT: 154.9 cm WEIGHT: 54.9 kg BP: 154/76 IVSd: 1.3 cm (0.6 - 1.1) LVIDd: 3.2 cm (3.9 - 5.3) LVPWd: 1.3 cm (0.6 - 1.1) IVSs: 1.5 cm LVIDs: 2.3 cm LVPWs: 1.7 cm LA Diam: 4.3 cm (2.7 - 3.8) LAESV Index (A-L): 9.04 ml/m Ao Diam: 3.1 cm (2.0 - 3.7) AV Cusp: 1.6 cm (1.5 - 2.6) LA Diam: 3.0 cm (2.7 - 3.8) MV EXCURSION: 12.408 mm (> 18.000) MV EF SLOPE: 58 mm/s (70 - 150) EPSS: 0.7 cm MV E Lauri: 0.45 m/s MV DecT: 344 ms MV A Lauri: 0.79 m/s MV E/A Ratio: 0.57 RAP: 5.00 mmHg RVSP: 15.61 mmHg FINDINGS -------- Sinus rhythm. This was a technically adequate study. The left ventricular size is normal. There is moderate concentric left ventricular hypertrophy. O verall left ventricular systolic function is normal with, an EF between 55 - 60 %. The right ventricle is normal in size. Normal LA size by volume 22+/-6 ml/m2. The right atrial size is normal. Interatrial and interventricular septum intact. Aortic valve is trileaflet and is mildly thickened. The mitral valve is normal. No mitral regurgitation. Mild tricuspid regurgitation present. There is no evidence of pulmonary hypertension. The right v entricular systolic pressure, as measured by Doppler, is 15.61mmHg. Trace/mild (physiologic) pulmonic regurgitation. The aortic root size is normal. Normal inferior vena cava with normal inspiratory collapse consistent with estimated right atrial pre ssure of 5 mmHg. Echo free space indicative of a pericardial fat pad. CONCLUSIONS -------- 1. Sinus rhythm. 2. This was a technically adequate study. 3. The left ventricular size is normal. 4. Overall left ventricular systolic function is normal with, an EF between 55 - 60 %. 5. The right ventricle is normal in size. 6. Normal LA size by volume 22+/-6 ml/m2. 7. The right atrial size is normal. 8. Interatrial and interventricular septum intact. 9. Aortic valve is trileaflet and is mildly thickened. 10. The mitral valve is normal. 11. No mitral regurgitation. 12. Mild tricuspid regurgitation present. 13. There is no evidence of pulmonary hypertension. 14. The right ventricular systolic pressure, as measured by Doppler, is 15.61mmHg. 15. Trace/mild (physiologic) pulmonic regurgitation. 16. The aortic root size is normal. 17. Normal inferior vena cava with normal inspiratory collapse consistent with estimated right atrial pressure of 5 mmHg. 18. Echo free space indicative of a pericardial fat pad. [employer] ARC: Deborah Simons RDCS
--- NOTE | 2018-09-19 15:12 | EST ---
EXERCISE STRESS AGE: 73 SEX: F HT: 61" WT: 121 PROTOCOL: Lexiscan Cardiolite Stress Test HEART RATE REST: 66 BLOOD PRESSURE REST: 164/95 MAXIMUM HEART RATE ACHIEVED: 90 MAXIMUM BLOOD PRESSURE: 164/95 85% MPHR: 124 100% MPHR: 146 INDICATIONS: Chest pain. CLINICAL INFORMATION: STRESS DATA: Heart rate is 66, pressure is 164/95 mmHg. Baseline EKG showed sinus mechanism. 0.4 mg of Lexiscan over 15 seconds per protocol, the max heart rate was 90 beats per minute. Maximum blood pressure was 164/95 mmHg. Clinically, the patient did not have any symptoms of chest pain or discomfort and the EKG did not show any significant ST or T-wave abnormalities concerning for ischemia. CONCLUSION: 1. Nondiagnostic electrocardiogram stress testing in response to Lexiscan. 2. Please follow up on the Cardiolite portion on a separate report. MMODL / IJN: [id number] /
--- NOTE | 2018-09-19 16:43 | P.PN ---
Subjective Progress Note Date: 09/19/18 This is a pleasant 73-year-old female who follows with Dr. Gonzalez in the office. She has a known history of hypertension, hyperlipidemia, sinus tachycardia, COPD, asthma, questionable paroxysmal atrial fibrillation in the past, she presents to the hospital with symptoms of a cough, worsening in her shortness of breath and some chest discomfort. According to the patient, she had attended a wedding over the weekend, felt after 2 days that she was developing a cold, she states that when she takes a deep breath, she has some discomfort in the center of her chest near her epigastric area. Patient denies any nausea or vomiting. At home she states that she did take additional breathing treatments without relief of symptoms. According to the patient, she has undergone a cardiac catheterization in the past which is several years ago, according to her this was normal. Her chest x-ray on admission did not reveal any acute pulmonary process. Her EKG on admission here showed a normal sinus rhythm with no acute changes noted. Blood pressure 138/75 heart rate in the 70s, she is afebrile. White blood cell count is normal at 8.9, hemoglobin 15.6, platelet count 231. Sodium 139, potassium 3.5, BUN 17 and creatinine 0.7. Troponins 0.08, 0.16, 0.09. The patient is very hard of hearing. At the time of my examination this morning, she denies any shortness of breath or chest discomfort. Most recent echocardiogram with Doppler study was performed in April of this year and revealed a normal left ventricular systolic function I. 09/19/2018 Patient was seen and examined today, denies any chest discomfort and her breathing overall is stable. She did undergo a Lexiscan stress test today which was negative for any reversible ischemia. Echocardiogram with Doppler study revealed an ejection fraction of 55-60%. Objective - Vital Signs Vital signs: Vital Signs Temp 97.8 F 09/19/18 08:00 Pulse 75 09/19/18 15:44 Resp 16 09/19/18 11:30 BP 186/77 09/19/18 11:30 Pulse Ox 96 09/19/18 11:30 Intake & Output 09/18/18 09/19/18 09/19/18 18:59 06:59 18:59 Intake Total 0 Balance 0 Weight 53.2 kg 52.7 kg Intake: Oral 0 Other: Voiding Method Toilet Toilet # Voids 1 1 1 - Exam PHYSICAL EXAMINATION: GENERAL: 83-year-old female in no acute distress at the time of my examination HEENT: Head is atraumatic, normocephalic. Pupils equal, round. Sclera anicteric. Conjunctiva are clear. Mucous membranes of the mouth are moist. Neck is supple. There is no elevated jugular venous pressure. No carotid bruit is heard. HEART EXAMINATION: Heart S1, S2 normal. No murmur or gallop heard. CHEST EXAMINATION: Lungs reveal scattered coarse rhonchi and wheezing throughout with decreased air exchange ABDOMEN: Soft, nontender. Bowel sounds are heard. No organomegaly noted. EXTREMITIES: 2+ peripheral pulses with no evidence of peripheral edema and no calf tenderness noted. NEUROLOGIC patient is awake, alert and oriented 3 . - Labs CBC & Chem 7: 09/17/18 20:00 09/17/18 20:00 Labs: Abnormal Lab Results - Last 24 Hours (Table) 09/18/18 09/18/18 09/19/18 Range/Units 17:02 21:46 06:14 POC Glucose (mg/dL) 132 H 138 H 131 H (75-99) mg/dL 09/19/18 Range/Units 11:44 POC Glucose (mg/dL) 134 H (75-99) mg/dL Assessment and Plan Plan: Assessment and plan #1 symptoms of cough, nonproductive and worsening shortness of breath. One episode of chest discomfort, mid epigastric area. EKG shows normal sinus rhythm with no acute changes. Troponin 0.08, 0.16, 0.09. Representing a type to myocardial injury #2 COPD with possible exacerbation, mild fever of 100 on arrival, white blood cell count is normal. Afebrile since #2 hypertension #3 history of chronic bronchial asthma #4 history of sinus tachycardia #5 questionable history of prior paroxysmal atrial fibrillation Plan Mariella scan stress test of today was negative for any reversible ischemia and echo showed a normal LV function. From our perspective the patient may be discharged home today to follow-up in the office post discharge. DNP note has been reviewed, I agree with a documented findings and plan of care. Patient was seen and examined.
[2018-09-19 16:51] LABS: Glucose,Whole Blood 126 mg/dL (75-99)
[2018-09-19 17:32] VITALS: BP 108/69; PULSE 71
--- NOTE | 2018-09-20 03:30 | DS ---
DISCHARGE SUMMARY DATE OF ADMISSION: 09/17/2018. DATE OF DISCHARGE: 09/19/2018. FINAL DIAGNOSES: 1. Possible acute non-Q-wave myocardial infarction. 2. Acute exacerbation of moderate persistent asthma. 3. Gastroesophageal reflux disease. 4. Hyperlipidemia. 5. Essential hypertension. 6. 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 7. Paroxysmal atrial fibrillation currently in sinus rhythm. 8. Intermittent dysphagia, needs further workup as an outpatient. HOSPITAL COURSE: This patient presented with shortness of breath. Found to be in asthma exacerbation. Also patient had a small OR with rise and fall of troponin. The patient did undergo a nuclear stress test that was unremarkable. 2D echocardiogram showed EF of 55-60 percent. The patient did undergo barium swallow. No obstruction was reported. The patient does get sometimes food gets stuck in the lower chest which is intermittent. The patient may have a problem may be an element of presbyesophagus. In any case, patient will need an endoscopy. Care was discussed with the patient. Questions were answered. The patient is seen by Cardiology, cleared by them. All the results were discussed. Discussion and discharge planning more than 35 minutes. CONSULTATION: Dr. Pino from Cardiology. On examination: Blood pressure 108/69. Pulse 71. Lungs decreased breath sounds. DISCHARGE MEDICATIONS: 1. Ventolin HFA 2 puffs q.i.d. p.r.n. 2. Baclofen 10 mg t.i.d. p.r.n. 3. Pradaxa 150 mg p.o. b.i.d. 4. [place] 7.5 one tab q.i.d. p.r.n. 5. Univasc 7.5 p.o. b.i.d. 6. Pravachol 40 mg p.o. daily. 7. Verapamil ER 240 mg b.i.d. 8. Xalatan 0.005% 1 drop to both eyes q.h.s. 9. Nadolol 40 mg p.o. daily. 10.Prilosec 20 mg p.o. daily. 11.Ventolin 2.5 t.i.d. 12.Symbicort 160/4.5, 2 puffs b.i.d. 13.Mycelex Real 10 mg mucous membrane t.i.d. 14.Vitamin B12 1000 mcg p.o. daily. 15.Aspirin 81 mg p.o. daily. 16.Mucinex 600 mg q.12. 17.Prednisone taper. Follow up with Dr. Pino in one week, Dr. Faizan Estrella in 3 days, Dr. Hammond in [address] Faizan Estrella. ATA / BILLN: [id number] /
--- NOTE | 2018-09-23 07:13 | CDI ---
Documentation Clarification Form Date: 09/23/2018 From: Margoth Nieves Phone: If questions call Manuela Leal @ [phone], Hours-8:30 am & 5 pm M- F Admit Date: 09/17/2018 10:51:00 PM Patient Name: Nancy Naqvi Visit Number: [id number] Discharge Date: 09/19/2018 7:17:00 PM ATTENTION: The Clinical Documentation Specialists (CDI) and [facility] Coding Staff appreciate your assistance in clarifying documentation. Please respond to the clarification below the line at the bottom and electronically sign. The CDI & [facility] Coding staff will review the response and follow-up if needed. Please note: Queries are made part of the Legal Health Record. If you have any questions, please contact the author of this message via ITS. Dr. Jovani Pelaez Conflicting documentation has been found in the medical record: Cardiac consult documents "Troponin 0.08, 0.16, 1.09. Representing a type to myocardial injury." You document "Possible acute non-Q-wave myocardial infarction." History/Risk Factors: AE of moderate persistent asthma, GERD, HTN, paroxysmal atrial fibrillation, intermittent dysphagia EKG: Normal sinus rhythm with no acute changes. In your opinion, what is the most clinically appropriate diagnosis for this patient? Type II NH Non-Q-wave NH Other explanation of clinical findings Unable to determine (no explanation for clinical findings) possible non Q wave acute NH,POA MTDD
== END 2018-09-19 19:17 | disposition home or self-care (01) | DRG 281 ==
LOC: EC 17:45 → 3SCARD 22:51
PROVIDERS: ADMIT Hospitalist; ATTEND Hospitalist
DX: I21.4 Non-ST elevation (NSTEMI) myocardial infarction (principal); J45.41 Moderate persistent asthma with (acute) exacerbation; J44.9 Chronic obstructive pulmonary disease, unspecified; I48.0 Paroxysmal atrial fibrillation; R13.10 Dysphagia, unspecified; K22.8 Other specified diseases of esophagus; E78.5 Hyperlipidemia, unspecified; I10 Essential (primary) hypertension; H91.90 Unspecified hearing loss, unspecified ear; K59.00 Constipation, unspecified; I83.90 Asymptomatic varicose veins of unspecified lower extremity; K21.9 Gastro-esophageal reflux disease without esophagitis; M19.91 Primary osteoarthritis, unspecified site; H40.9 Unspecified glaucoma; Z79.51 Long term (current) use of inhaled steroids; Z79.02 Long term (current) use of antithrombotics/antiplatelets; Z79.899 Other long term (current) drug therapy; Z87.01 Personal history of pneumonia (recurrent); Z87.19 Personal history of other diseases of the digestive system; Z98.42 Cataract extraction status, left eye; Z98.41 Cataract extraction status, right eye; Z87.11 Personal history of peptic ulcer disease; Z90.710 Acquired absence of both cervix and uterus; Z98.51 Tubal ligation status; Z98.890 Other specified postprocedural states; Z82.5 Family history of asthma and other chronic lower respiratory diseases; Z82.61 Family history of arthritis; Z83.79 Family history of other diseases of the digestive system
CPT/HCPCS: 36415; 71046; 74220; 78452; 80053; 84484; 85025; 85610; 85730; 93005; 93017; 93306; 94640; 94644; 96374; 96376; 99285

== ENCOUNTER → 2019-02-05 | Outpatient (CLI) | payer MEDICARE, OTHER ==
--- NOTE | 2019-02-06 12:12 | MM ---
Reason for exam: screening (asymptomatic). Last mammogram was performed 1 year ago. History: Patient is postmenopausal. Family history of breast cancer in sister at age 60. US discontinued breast bx RT of the right breast, March 26, 2016. Physical Findings: A clinical breast exam by your physician is recommended on an annual basis and results should be correlated with mammographic findings. MG 3D Screening Mammo W/Cad Bilateral CC and MLO view(s) were taken. Prior study comparison: January 29, 2018, bilateral MG 3d screening mammo w/cad. March 07, 2016, right breast MG 3d diag mammo w/cad RT. August 09, 2015, bilateral MG 3d diag mammo w/cad BILLY. July 30, 2014, bilateral MG screening mammo w CAD. The breast tissue is heterogeneously dense. This may lower the sensitivity of mammography. There are benign appearing stable bilateral round oval circumscribed masses back to 2014 mammographically benign given stability. No suspicious abnormality. No significant changes when compared with prior studies. ASSESSMENT: Benign, BI-RAD 2 RECOMMENDATION: Routine screening mammogram of both breasts in 1 year.
== END | disposition home or self-care (01) ==
LOC: RADMAMWWP 09:43
PROVIDERS: ATTEND Internal Medicine
DX: Z12.31 Encounter for screening mammogram for malignant neoplasm of breast (principal)
CPT/HCPCS: 77063; 77067

== ENCOUNTER 2019-03-14 07:10 | Observation (INO) | payer MEDICARE, OTHER ==
[2019-03-14] MEDS ORDERED: PANTOPRAZOLE 40 MG/10 ML VIAL IVP STA (07:32)
--- NOTE | 2019-03-14 07:37 | ED ---
General Adult HPI - General Chief complaint: GI Bleed Stated complaint: GI Bleed Time Seen by Provider: 03/14/19 07:13 Source: patient, RN notes reviewed Mode of arrival: ambulatory Limitations: no limitations - History of Present Illness Initial comments: Patient is a pleasant 73-year-old female presenting to the emergency department with concerns for GI bleed. Patient did have similar symptoms a couple years ago associated with internal hemorrhoids. Started the past couple of hours. Patient woke up and noticed there was blood in her pad. Patient denies any anterior bleeding or bleeding with urination. Patient denies rectal pain. No abdominal pain. No vomiting. No weakness or fatigue. No dyspnea. - Related Data Home Medications Medication Instructions Recorded Confirmed Albuterol Inhaler [Ventolin Hfa 2 puff INHALATION RT-QID PRN 07/20/15 03/14/19 Inhaler] Baclofen [Lioresal] 10 mg PO TID PRN 07/20/15 03/14/19 Dabigatran [Pradaxa] 150 mg PO BID 07/20/15 03/14/19 Hydrocodone/Acetaminophen [[place] 1 tab PO QID PRN 07/20/15 03/14/19 7.5-325] Moexipril [Univasc] 7.5 mg PO BID 07/20/15 03/14/19 Pravastatin Sodium [Pravachol] 40 mg PO DAILY 07/20/15 03/14/19 Verapamil HCl [Verapamil ER] 240 mg PO BID 04/11/16 03/14/19 Latanoprost [Xalatan 0.005%] 1 drop BOTH EYES HS 10/15/16 03/14/19 Nadolol 40 mg PO DAILY 10/15/16 03/14/19 Omeprazole [PriLOSEC] 20 mg PO DAILY 01/16/17 03/14/19 Albuterol Nebulized [Ventolin 2.5 mg INHALATION RT-TID 08/11/17 03/14/19 Nebulized] Budesonide/Formoterol Fumarate 2 puff INHALATION RT-BID 08/11/17 03/14/19 [Symbicort 160-4.5 Mcg Inhaler] Diclofenac Sodium Gel [Voltaren 1 gm TOPICAL BID PRN 03/14/19 03/14/19 Gel] Hydrochlorothiazide 12.5 mg PO DAILY 03/14/19 03/14/19 Hydrocortisone Pr Cream 1 applic RECTAL BID PRN 03/14/19 03/14/19 [Proctosol-Hc 2.5%] Allergies Allergy/AdvReac Type Severity Reaction Status Date / Time No Known Allergies Allergy Verified 03/14/19 08:47 Review of Systems ROS Statement: Those systems with pertinent positive or pertinent negative responses have been documented in the HPI. ROS Other: All systems not noted in ROS Statement are negative. Constitutional: Denies: fever Eyes: Denies: eye pain ENT: Denies: ear pain Respiratory: Denies: cough Cardiovascular: Denies: chest pain Endocrine: Denies: fatigue Gastrointestinal: Reports: as per HPI. Denies: abdominal pain Genitourinary: Denies: dysuria, hematuria Musculoskeletal: Denies: back pain Skin: Denies: rash Neurological: Denies: weakness Past Medical History Past Medical History: Atrial Fibrillation, Asthma, COPD, GERD/Reflux, Hyperlipidemia, Hypertension, Osteoarthritis (OA), Pneumonia Additional Past Medical History / Comment(s): DJD, VARICOSE VEINS, BRONCHITIS, GLAUCOMA, stomach ULCER,DIVERTICULITIS,constipation History of Any Multi-Drug Resistant Organisms: None Reported Past Surgical History: Adenoidectomy, Appendectomy, Heart Catheterization, Hysterectomy, Tonsillectomy, Tubal Ligation Additional Past Surgical History / Comment(s): BILLY CATARACTS. Past Anesthesia/Blood Transfusion Reactions: No Reported Reaction Past Psychological History: No Psychological Hx Reported Smoking Status: Never smoker Past Alcohol Use History: None Reported Past Drug Use History: None Reported - Past Family History Father Family Medical History: COPD Additional Family Medical History / Comment(s): EMPHYSEMA Mother Family Medical History: Osteoarthritis (OA) Additional Family Medical History / Comment(s): EMPHYSEMA, BOWEL OBSTRUCTION/C OLOSTOMY General Exam Limitations: no limitations General appearance: alert, in no apparent distress Head exam: Present: atraumatic Eye exam: Present: normal appearance Neck exam: Present: normal inspection Respiratory exam: Present: normal lung sounds bilaterally Cardiovascular Exam: Present: regular rate, normal rhythm GI/Abdominal exam: Present: soft. Absent: distended, tenderness Rectal exam: Present: normal inspection. Absent: black stool, bloody stool Extremities exam: Present: normal inspection Neurological exam: Present: alert Psychiatric exam: Present: normal affect, normal mood Skin exam: Present: normal color Course Vital Signs 03/14/19 03/14/19 07:14 09:02 Temperature 98.1 F 98.1 F Pulse Rate 67 65 Respiratory 19 16 Rate Blood Pressure 165/82 185/89 O2 Sat by Pulse 97 96 Oximetry Medical Decision Making - Medical Decision Making Patient reevaluated and resting comfortably in bed. Patient and family updated on results and plan. Case was discussed in detail with Dr. Higgins, who will admit for Dr. Khan, who admits for Dr. Leon. - Lab Data Result diagrams: 03/14/19 07:50 03/14/19 07:50 Lab Results 03/14/19 03/14/19 03/14/19 Range/Units 07:28 07:50 07:50 WBC 6.3 (3.8-10.6) k/uL RBC 3.57 L (3.80-5.40) m/uL Hgb 13.1 (11.4-16.0) gm/dL Hct 36.0 (34.0-46.0) % MCV 100.7 H (80.0-100.0) fL MCH 36.7 H (25.0-35.0) pg MCHC 36.4 (31.0-37.0) g/dL RDW 13.2 (11.5-15.5) % Plt Count 194 (150-450) k/uL Neutrophils % 54 % Lymphocytes % 25 % Monocytes % 11 % Eosinophils % 4 % Basophils % 1 % Neutrophils # 3.4 (1.3-7.7) k/uL Lymphocytes # 1.6 (1.0-4.8) k/uL Monocytes # 0.7 (0-1.0) k/uL Eosinophils # 0.3 (0-0.7) k/uL Basophils # 0.1 (0-0.2) k/uL PT (9.0-12.0) sec INR (<1.2) APTT (22.0-30.0) sec Sodium 144 (137-145) mmol/L Potassium 3.2 L (3.5-5.1) mmol/L Chloride 101 (98-107) mmol/L Carbon Dioxide 37 H (22-30) mmol/L Anion Gap 6 mmol/L BUN 22 H (7-17) mg/dL Creatinine 0.76 (0.52-1.04) mg/dL Est GFR (CKD-EPI)AfAm 90 (>60 ml/min/1.73 sqM) Est GFR (CKD-EPI)NonAf 78 (>60 ml/min/1.73 sqM) Glucose 100 H (74-99) mg/dL Calcium 9.0 (8.4-10.2) mg/dL Total Bilirubin 0.9 (0.2-1.3) mg/dL AST 24 (14-36) U/L ALT 26 (9-52) U/L Alkaline Phosphatase 61 (38-126) U/L Total Protein 6.7 (6.3-8.2) g/dL Albumin 3.8 (3.5-5.0) g/dL Stool Occult Blood Positive H (Negative) 03/14/19 Range/Units 07:50 WBC (3.8-10.6) k/uL RBC (3.80-5.40) m/uL Hgb (11.4-16.0) gm/dL Hct (34.0-46.0) % MCV (80.0-100.0) fL MCH (25.0-35.0) pg MCHC (31.0-37.0) g/dL RDW (11.5-15.5) % Plt Count (150-450) k/uL Neutrophils % % Lymphocytes % % Monocytes % % Eosinophils % % Basophils % % Neutrophils # (1.3-7.7) k/uL Lymphocytes # (1.0-4.8) k/uL Monocytes # (0-1.0) k/uL Eosinophils # (0-0.7) k/uL Basophils # (0-0.2) k/uL PT 12.3 H (9.0-12.0) sec INR 1.2 H (<1.2) APTT 44.3 H (22.0-30.0) sec Sodium (137-145) mmol/L Potassium (3.5-5.1) mmol/L Chloride (98-107) mmol/L Carbon Dioxide (22-30) mmol/L Anion Gap mmol/L BUN (7-17) mg/dL Creatinine (0.52-1.04) mg/dL Est GFR (CKD-EPI)AfAm (>60 ml/min/1.73 sqM) Est GFR (CKD-EPI)NonAf (>60 ml/min/1.73 sqM) Glucose (74-99) mg/dL Calcium (8.4-10.2) mg/dL Total Bilirubin (0.2-1.3) mg/dL AST (14-36) U/L ALT (9-52) U/L Alkaline Phosphatase (38-126) U/L Total Protein (6.3-8.2) g/dL Albumin (3.5-5.0) g/dL Stool Occult Blood (Negative) Disposition Clinical Impression: Lower gastrointestinal hemorrhage Disposition: ADMITTED IP TO THIS HOSP Is patient prescribed a controlled substance at d/c from ED?: No Referrals: Faizan Estrella MD [Primary Care Provider] - 1-2 days Decision Time: 09:30
[2019-03-14 08:03] LABS: Basophils # (A) 0.1 k/uL (0-0.2); Basophils % (A) 1 %; Eosinophils # (A) 0.3 k/uL (0-0.7); Eosinophils % (A) 4 %; HGB 13.1 gm/dL (11.4-16.0); Lymphocytes # (A) 1.6 k/uL (1.0-4.8); Lymphocytes % (A) 25 %; MCH 36.7 pg (25.0-35.0); MCHC 36.4 g/dL (31.0-37.0); MCV 100.7 fL (80.0-100.0); Mean Platelet Volume 6.7; Monocytes # (A) 0.7 k/uL (0-1.0); Monocytes % (A) 11 %; Neutrophils # (A) 3.4 k/uL (1.3-7.7); Neutrophils % (A) 54 %; Platelet Count 194 k/uL (150-450); RBC 3.57 m/uL (3.80-5.40); RDW 13.2 % (11.5-15.5); WBC 6.3 k/uL (3.8-10.6)
[2019-03-14 08:11] LABS: INR 1.2 (<1.2); Partial Thromboplastin Time 44.3 sec (22.0-30.0); Prothrombin Time 12.3 sec (9.0-12.0)
[2019-03-14 08:12] LABS: Albumin 3.8 g/dL (3.5-5.0); Potassium 3.2 mmol/L (3.5-5.1); Total Bilirubin 0.9 mg/dL (0.2-1.3); Total Protein 6.7 g/dL (6.3-8.2)
[2019-03-14] MEDS ORDERED: VERAPAMIL 40 MG TAB PO STA (09:26)
[2019-03-14] MEDS ORDERED: LISINOPRIL 10 MG TAB PO STA ×2 (09:28→09:32)
[2019-03-14] MEDS ORDERED: NALOXONE 0.4 MG/ML 1 ML VIAL IV PRN (09:30)
[2019-03-14] MEDS ORDERED: POTASSIUM CHLORIDE ER 20 MEQ TAB.ER PO STA (09:32)
[2019-03-14] MEDS ORDERED: VERAPAMIL SR 240 MG TABLET.ER PO SCH (09:45)
[2019-03-14] MEDS: HYDROCHLOROTHIAZIDE 12.5 MG CAP PO SCH ×2 (09:57→10:00)
[2019-03-14 11:39] VITALS: BMI 24.0
[2019-03-14] MEDS: SODIUM CHLORIDE 0.9% 1,000 ML IV SCH (11:39)
[2019-03-14] MEDS ORDERED: ALBUTEROL NEBULIZED 2.5 MG/3 ML INHALATION PRN (14:10)
[2019-03-14 14:41] LABS: Basophils # (A) 0.1 k/uL (0-0.2); Basophils % (A) 2 %; Eosinophils # (A) 0.1 k/uL (0-0.7); Eosinophils % (A) 2 %; HCT 40.7 % (34.0-46.0); HGB 13.6 gm/dL (11.4-16.0); Lymphocytes # (A) 1.1 k/uL (1.0-4.8); Lymphocytes % (A) 16 %; MCH 33.5 pg (25.0-35.0); MCHC 33.4 g/dL (31.0-37.0); MCV 100.3 fL (80.0-100.0); Mean Platelet Volume 6.7; Monocytes # (A) 0.6 k/uL (0-1.0); Monocytes % (A) 8 %; Neutrophils # (A) 4.8 k/uL (1.3-7.7); Neutrophils % (A) 69 %; Platelet Count 217 k/uL (150-450); RBC 4.05 m/uL (3.80-5.40); RDW 13.2 % (11.5-15.5); WBC 6.9 k/uL (3.8-10.6)
--- NOTE | 2019-03-14 15:03 | P.HPIM ---
History of Present Illness H&P Date: 03/14/19 Chief Complaint: Bright red blood per rectum 73-year-old female with PMH of atrial fibrillation on Pradaxa, COPD, hypertension, hyperlipidemia results the ED for bright red blood per rectum. Patient does have some fecal incontinence. She woke up around 6 AM this morning to see her pad drenched in bright red blood. Patient reports previous episode 2-3 years ago where she was diagnosed with internal hemorrhoids. She denies any hematuria or vaginal bleeding. She denies any abdominal pain. She states that her colonoscopy was 1-2 years ago where they found polyps. She does report some intermittent bouts of constipation and diarrhea. She denies any headache, lower extremity edema, nausea or vomiting, fever or chills, cough, chest pain, shortness of breath. She does report a decreased appetite today. She denies any dizziness, numbness/weakness/tingling of the extremities. Patient reports 17 bowel movements today since the bleed but is unable to describe her stool. She reports no further bright red blood per rectum since that episode at 6 AM. In the ED, vital signs are stable except for elevated BP of 185/89. CBC showed macrocytosis of MCV 100.7. Coagulation panel showed INR of 1.2. CMP showed potassium of 3.2, bicarbonate of 37 and BUN of 22. Stool for occult blood was positive. Admitted for lower GI bleed with GI on consult. Review of Systems Pertinent positives and negatives as discussed in HPI, a complete review of systems was performed and all other systems are negative. Past Medical History Past Medical History: Atrial Fibrillation, Asthma, COPD, GERD/Reflux, Hyperlipidemia, Hypertension, Osteoarthritis (OA), Pneumonia Additional Past Medical History / Comment(s): DJD, VARICOSE VEINS, BRONCHITIS, GLAUCOMA, stomach ULCER,DIVERTICULITIS,constipation History of Any Multi-Drug Resistant Organisms: None Reported Past Surgical History: Adenoidectomy, Appendectomy, Heart Catheterization, Hysterectomy, Tonsillectomy, Tubal Ligation Additional Past Surgical History / Comment(s): BILLY CATARACTS. Past Anesthesia/Blood Transfusion Reactions: No Reported Reaction Past Psychological History: No Psychological Hx Reported Additional Psychological History / Comment(s): PT LIVES AL[place] IN [place] SHE USES NO ASSISTIVE DEVICE. SHE DRIVES. HER GRANDDAUGHTER KVNG VISITS DAILY.. Smoking Status: Never smoker Past Alcohol Use History: None Reported Past Drug Use History: None Reported - Past Family History Father Family Medical History: COPD Additional Family Medical History / Comment(s): EMPHYSEMA Mother Family Medical History: Osteoarthritis (OA) Additional Family Medical History / Comment(s): EMPHYSEMA, BOWEL OBSTRUCTION/COLOSTOMY Medications and Allergies Home Medications Medication Instructions Recorded Confirmed Type Albuterol Inhaler [Ventolin Hfa 2 puff INHALATION RT-QID PRN 07/20/15 03/14/19 History Inhaler] Baclofen [Lioresal] 10 mg PO TID PRN 07/20/15 03/14/19 History Dabigatran [Pradaxa] 150 mg PO BID 07/20/15 03/14/19 History Hydrocodone/Acetaminophen [[place] 1 tab PO QID PRN 07/20/15 03/14/19 History 7.5-325] Moexipril [Univasc] 7.5 mg PO BID 07/20/15 03/14/19 History Pravastatin Sodium [Pravachol] 40 mg PO DAILY 07/20/15 03/14/19 History Verapamil HCl [Verapamil ER] 240 mg PO BID 04/11/16 03/14/19 History Latanoprost [Xalatan 0.005%] 1 drop BOTH EYES HS 10/15/16 03/14/19 History Nadolol 40 mg PO DAILY 10/15/16 03/14/19 History Omeprazole [PriLOSEC] 20 mg PO DAILY 01/16/17 03/14/19 History Albuterol Nebulized [Ventolin 2.5 mg INHALATION RT-TID 08/11/17 03/14/19 History Nebulized] Budesonide/Formoterol Fumarate 2 puff INHALATION RT-BID 08/11/17 03/14/19 History [Symbicort 160-4.5 Mcg Inhaler] Diclofenac Sodium Gel [Voltaren 1 gm TOPICAL BID PRN 03/14/19 03/14/19 History Gel] Hydrochlorothiazide 12.5 mg PO DAILY 03/14/19 03/14/19 History Hydrocortisone Pr Cream 1 applic RECTAL BID PRN 03/14/19 03/14/19 History [Proctosol-Hc 2.5%] Allergies Allergy/AdvReac Type Severity Reaction Status Date / Time No Known Allergies Allergy Verified 03/14/19 08:47 Physical Exam Vitals: Vital Signs Temp Pulse Pulse Resp BP BP Pulse Ox 03/14/19 14:04 98.1 F 65 18 129/77 95 03/14/19 11:13 97.6 F 73 18 173/82 92 L 03/14/19 10:51 98.1 F 65 16 183/89 96 03/14/19 10:46 183/89 03/14/19 09:02 98.1 F 65 16 185/89 96 03/14/19 07:14 98.1 F 67 19 165/82 97 Intake and Output 03/13/19 03/14/19 03/14/19 22:59 06:59 14:59 Other: # Voids 1 Weight 57.606 kg General: [non toxic], [no distress], [appears at stated age] Derm: [warm], [dry] Head: [atraumatic], [normocephalic], [symmetric] Eyes: [EOMI], [no lid lag], [anicteric sclera] Mouth: [no lip lesion], [mucus membranes moist] Cardiovascular: [S1S2 reg], [no murmur], [positive posterior tibial pulse bilateral], Lungs: [CTA bilateral], [no rhonchi, no rales] , [no accessory muscle use] Abdominal: [soft], [ nontender to palpation], [no guarding], [no appreciable organomegaly] Ext: [no gross muscle atrophy], [no edema], [no contractures] Neuro: [ CN II-XI grossly intact], [no focal neuro deficits] Psych: [Alert], [oriented], [appropriate affect] Results CBC & Chem 7: 03/14/19 14:31 03/14/19 07:50 Labs: Abnormal Lab Results - Last 24 Hours (Table) 03/14/19 03/14/19 03/14/19 Range/Units 07:28 07:50 07:50 RBC 3.57 L (3.80-5.40) m/uL MCV 100.7 H (80.0-100.0) fL MCH 36.7 H (25.0-35.0) pg PT (9.0-12.0) sec INR (<1.2) APTT (22.0-30.0) sec Potassium 3.2 L (3.5-5.1) mmol/L Carbon Dioxide 37 H (22-30) mmol/L BUN 22 H (7-17) mg/dL Glucose 100 H (74-99) mg/dL Stool Occult Blood Positive H (Negative) 03/14/19 03/14/19 Range/Units 07:50 14:31 RBC (3.80-5.40) m/uL MCV 100.3 H (80.0-100.0) fL MCH (25.0-35.0) pg PT 12.3 H (9.0-12.0) sec INR 1.2 H (<1.2) APTT 44.3 H (22.0-30.0) sec Potassium (3.5-5.1) mmol/L Carbon Dioxide (22-30) mmol/L BUN (7-17) mg/dL Glucose (74-99) mg/dL Stool Occult Blood (Negative) Thrombosis Risk Factor Assmnt - Choose All That Apply Any of the Below Risk Factors Present?: No Other Risk Factors: Yes Each Risk Factor Represents 2 Points: Age 61-74 years Thrombosis Risk Factor Assessment Total Risk Factor Score: 2 Thrombosis Risk Factor Assessment Level: Low Risk Assessment and Plan Assessment: Assessment and plan Lower GI bleed Macrocytic anemia Hypokalemia Metabolic alkalosis Elevated BUN Atrial fibrillation COPD Hypertension Dyslipidemia FOBT positive. Hemoglobin 13.1. Painless, likely internal hemorrhoids. Plans: Protonix 40 mg IV daily. Zofran as needed for nausea or vomiting. Clear liquid diet and advance as tolerated. Repeat CBC tomorrow morning. Hold Pradaxa. Follow GI consultation. MCV 100.7. Plans: Follow B12 and folic acid. Potassium 3.2. Unknown significance. Plans: Replace via protocol. Repeat BMP tomorrow morning. HCO3 of 37. Patient has had no vomiting. Unknown significance. Plans: Repeat BMP tomorrow morning. BUN 22. Likely due to dehydration. Plans: Encourage hydration by mouth. Repeat BMP tomorrow morning. Plans: Continue beta bette. Continue verapamil. Hold Pradaxa due to GI bleed. Plans: Albuterol neb as needed for shortness of breath and wheezing. BP 129/77. Plans: Continue lisinopril, Nadolol, verapamil and hydrochlorothiazide. Monitor vitals, adjust medications as necessary. Plans: Resume pravastatin. DVT prophylaxis: [SCD] Discussed with: [Patient] Anticipated discharge: [1-2 days] Anticipated discharge place: [Home] A total of [45] minutes was spent on the care of this complex patient more than 50% of the time was spent in counseling and care coordination. Patient names her daughter Boo decision-maker indicates that she can't make decisions for herself. Patient wants to be full code at this time.
[2019-03-14] MEDS: HYDROcodone/APAP 7.5-325MG 1 EACH TAB PO PRN (18:05)
[2019-03-14] MEDS: ALBUTEROL NEBULIZED 2.5 MG/3 ML INHALATION PRN (19:02)
[2019-03-14] MEDS: SYMBICORT 160-4.5 MCG INHALER INHALATION SCH (19:02)
[2019-03-14] MEDS ORDERED: BACLOFEN 10 MG TAB PO PRN (20:55)
[2019-03-14] MEDS ORDERED: LATANOPROST 0.005% OPHTH DROPS 2.5 ML BTL BOTH EYES SCH (21:00)
[2019-03-14] MEDS: VERAPAMIL SR 240 MG TABLET.ER PO SCH (21:19)
[2019-03-14] MEDS: LISINOPRIL 10 MG TAB PO SCH (21:19)
[2019-03-15 06:15] VITALS: BP 165/79; RESP 16; TEMP 97.5
[2019-03-15] MEDS: ALBUTEROL NEBULIZED 2.5 MG/3 ML INHALATION PRN (07:06)
[2019-03-15] MEDS: SYMBICORT 160-4.5 MCG INHALER INHALATION SCH (07:06)
[2019-03-15 07:15] VITALS: PULSE 76
[2019-03-15 08:01] LABS: Basophils # (A) 0.1 k/uL (0-0.2); Basophils % (A) 1 %; Eosinophils # (A) 0.1 k/uL (0-0.7); Eosinophils % (A) 1 %; HCT 38.3 % (34.0-46.0); HGB 14.2 gm/dL (11.4-16.0); Lymphocytes # (A) 1.4 k/uL (1.0-4.8); Lymphocytes % (A) 24 %; MCH 37.3 pg (25.0-35.0); MCHC 37.2 g/dL (31.0-37.0); MCV 100.4 fL (80.0-100.0); Mean Platelet Volume 6.8; Monocytes # (A) 0.7 k/uL (0-1.0); Monocytes % (A) 11 %; Neutrophils # (A) 3.4 k/uL (1.3-7.7); Neutrophils % (A) 59 %; Platelet Count 204 k/uL (150-450); RBC 3.82 m/uL (3.80-5.40); RDW 13.3 % (11.5-15.5); WBC 5.9 k/uL (3.8-10.6)
[2019-03-15 08:11] LABS: African American GFR (CKD) >90 (>60 ml/min/1.73 sqM); Anion Gap 5 mmol/L; Blood Urea Nitrogen 12 mg/dL (7-17); Calcium 9.6 mg/dL (8.4-10.2); Carbon Dioxide 35 mmol/L (22-30); Chloride 100 mmol/L (98-107); Glucose 107 mg/dL (74-99); Non-African American GFR(CKD) 86 (>60 ml/min/1.73 sqM); Potassium 3.4 mmol/L (3.5-5.1); Sodium 140 mmol/L (137-145)
[2019-03-15] MEDS: LISINOPRIL 10 MG TAB PO SCH (08:43)
[2019-03-15] MEDS: HYDROcodone/APAP 7.5-325MG 1 EACH TAB PO PRN (08:43)
[2019-03-15] MEDS: VERAPAMIL SR 240 MG TABLET.ER PO SCH (08:45)
[2019-03-15] MEDS ORDERED: POTASSIUM CHLORIDE ER 20 MEQ TAB.ER PO STA (08:48)
[2019-03-15] MEDS ORDERED: Potassium Replacement Protocol 1 EACH MISC MISCELLANE PRN (08:48)
[2019-03-15] MEDS: SODIUM CHLORIDE 0.9% 1,000 ML IV SCH (08:51)
[2019-03-15] MEDS ORDERED: NADOLOL 20 MG TAB PO SCH (09:00)
[2019-03-15] MEDS ORDERED: NON FORMULARY DRUG (Omeprazole 20 MG) PO SCH (09:00)
[2019-03-15] MEDS ORDERED: PRAVASTATIN SODIUM 40 MG TAB PO SCH (09:00)
[2019-03-15] MEDS ORDERED: PANTOPRAZOLE 40 MG/10 ML VIAL IV SCH (09:00)
--- NOTE | 2019-03-15 09:01 | P.DS ---
Providers Date of admission: 03/14/19 09:38 Expected date of discharge: 03/15/19 Attending physician: Mateo Proctor MD Consults: 03/14/19 09:31 Consult Physician Urgent Consulting Provider: Che Mckee Consult Reason/Comments: gi hemorrhage Do you want consulting provider notified?: Yes Primary care physician: [facility] Course: 73-year-old female with PMH of atrial fibrillation on Pradaxa, COPD, hypertension, hyperlipidemia results the ED for bright red blood per rectum. Patient does have some fecal incontinence. She woke up around 6 AM this morning to see her pad drenched in bright red blood. Patient reports previous episode 2-3 years ago where she was diagnosed with internal hemorrhoids. She denies any hematuria or vaginal bleeding. She denies any abdominal pain. She states that her colonoscopy was 1-2 years ago where they found polyps. She does report some intermittent bouts of constipation and diarrhea. She denies any headache, lower extremity edema, nausea or vomiting, fever or chills, cough, chest pain, shortness of breath. She does report a decreased appetite today. She denies any dizziness, numbness/weakness/tingling of the extremities. Patient reports 17 bowel movements today since the bleed but is unable to describe her stool. She reports no further bright red blood per rectum since that episode at 6 AM. In the ED, vital signs are stable except for elevated BP of 185/89. CBC showed macrocytosis of MCV 100.7. Coagulation panel showed INR of 1.2. CMP showed potassium of 3.2, bicarbonate of 37 and BUN of 22. Stool for occult blood was positive. Admitted for lower GI bleed with GI on consult. Her bright red blood blood per rectum was thought to be due to internal hemorrhoids. She was started on Protonix IV. She was given Zofran as needed for nausea or vomiting. She was initially started on a clear liquid diet and advance as tolerated. Her Pradaxa was held. Her hemoglobin actually improved from 13.1-14.2. GI was consulted and recommended no inpatient colonoscopy. Patient was noted to have a potassium of 3.2. This was replaced orally. Repeat potassium was 3.4. Patient was given 40 mEq by mouth the morning of discharge. She was advised to repeat BMP in 3 days. Otherwise, her home medications were resumed for atrial fibrillation, COPD, hypertension and dyslipidemia. Patient was seen and examined this morning. No acute events overnight. Patient reports multiple bowel movements overnight. She denies any melena or bright red blood in her stool. She denies any chest pain, shortness of breath or palpitations. No nausea or vomiting. No fever or chills. Looking for to going home. General: [non toxic], [no distress], [appears at stated age] Derm: [warm], [dry] Head: [atraumatic], [normocephalic], [symmetric] Eyes: [EOMI], [no lid lag], [anicteric sclera] Mouth: [no lip lesion], [mucus membranes moist] Cardiovascular: [S1S2 reg], [no murmur], [positive posterior tibial pulse bilateral], Lungs: [CTA bilateral], [no rhonchi, no rales] , [no accessory muscle use] Abdominal: [soft], [ nontender to palpation], [no guarding], [no appreciable organomegaly] Ext: [no gross muscle atrophy], [no edema], [no contractures] Neuro: [no focal neuro deficits] Psych: [Alert], [oriented], [appropriate affect] Assessment and plan Lower GI bleed Macrocytic anemia Hypokalemia Metabolic alkalosis Atrial fibrillation COPD Hypertension Dyslipidemia FOBT positive. Hemoglobin 13.1-14.2. Painless, likely internal hemorrhoids. Plans: Protonix 40 mg IV daily. Zofran as needed for nausea or vomiting. Regular diet and advance as tolerated. Repeat CBC tomorrow morning. Resume Pradaxa. Follow GI consultation. MCV 100.7. Plans: Follow B12 and folic acid. Potassium 3.2-3.4. Unknown significance. Plans: Replace via protocol. Repeat BMP in 2-3 days. HCO3 of 37-35. Patient has had no vomiting. Unknown significance. Plans: Repeat BM in 2-3 days. Plans: Continue beta bette. Continue verapamil. We can resume Pradaxa. Plans: Albuterol neb as needed for shortness of breath and wheezing. B 165/79 Plans: Continue lisinopril, Nadolol, verapamil and hydrochlorothiazide. Monitor vitals, adjust medications as necessary. Plans: Resume pravastatin. [No GI bleed while inpatient. Hemoglobin uptrending. GI has seen the patient, recommends no colonoscopy at this time. Will DC home today. Repeat CBC and BMP within 3 days. Follow-up PCP within 3 days. Follow-up GI within 1 week.] Patient Condition at Discharge: Stable Plan - Discharge Summary New Discharge Prescriptions: Continue Pravastatin Sodium [Pravachol] 40 mg PO DAILY Hydrocodone/Acetaminophen [[place] 7.5-325] 1 tab PO QID PRN PRN Reason: Pain Baclofen [Lioresal] 10 mg PO TID PRN PRN Reason: Muscle Spasm Albuterol Inhaler [Ventolin Hfa Inhaler] 2 puff INHALATION RT-QID PRN PRN Reason: Shortness Of Breath Dabigatran [Pradaxa] 150 mg PO BID Moexipril [Univasc] 7.5 mg PO BID Verapamil HCl [Verapamil ER] 240 mg PO BID Nadolol 40 mg PO DAILY Latanoprost [Xalatan 0.005%] 1 drop BOTH EYES HS Omeprazole [PriLOSEC] 20 mg PO DAILY Budesonide/Formoterol Fumarate [Symbicort 160-4.5 Mcg Inhaler] 2 puff INHALATION RT-BID Albuterol Nebulized [Ventolin Nebulized] 2.5 mg INHALATION RT-TID Diclofenac Sodium Gel [Voltaren Gel] 1 gm TOPICAL BID PRN PRN Reason: Pain Hydrochlorothiazide 12.5 mg PO DAILY Hydrocortisone Pr Cream [Proctosol-Hc 2.5%] 1 applic RECTAL BID PRN PRN Reason: RECTAL PAIN Discharge Medication List Albuterol Inhaler [Ventolin Hfa Inhaler] 2 puff INHALATION RT-QID PRN 07/20/15 [History] Baclofen [Lioresal] 10 mg PO TID PRN 07/20/15 [History] Dabigatran [Pradaxa] 150 mg PO BID 07/20/15 [History] Hydrocodone/Acetaminophen [[place] 7.5-325] 1 tab PO QID PRN 07/20/15 [History] Moexipril [Univasc] 7.5 mg PO BID 07/20/15 [History] Pravastatin Sodium [Pravachol] 40 mg PO DAILY 07/20/15 [History] Verapamil HCl [Verapamil ER] 240 mg PO BID 04/11/16 [History] Latanoprost [Xalatan 0.005%] 1 drop BOTH EYES HS 10/15/16 [History] Nadolol 40 mg PO DAILY 10/15/16 [History] Omeprazole [PriLOSEC] 20 mg PO DAILY 01/16/17 [History] Albuterol Nebulized [Ventolin Nebulized] 2.5 mg INHALATION RT-TID 08/11/17 [History] Budesonide/Formoterol Fumarate [Symbicort 160-4.5 Mcg Inhaler] 2 puff INHALATION RT-BID 08/11/17 [History] Diclofenac Sodium Gel [Voltaren Gel] 1 gm TOPICAL BID PRN 03/14/19 [History] Hydrochlorothiazide 12.5 mg PO DAILY 03/14/19 [History] Hydrocortisone Pr Cream [Proctosol-Hc 2.5%] 1 applic RECTAL BID PRN 03/14/19 [History] Follow up Appointment(s)/Referral(s): Faizan Estrella MD [Primary Care Provider] - 1-2 days Che Mckee MD [STAFF PHYSICIAN] - 1 Week Ambulatory/Diagnostic Orders: Basic Metabolic Panel [LAB.AMB] Time Frame: 3 Days, Location: None Selected Complete Blood Count w/diff [LAB.AMB] Time Frame: 3 Days, Location: None Selected Activity/Diet/Wound Care/Special Instructions: Diet: Heart healthy Follow-up PCP within 3 days. Follow-up care within 1 week. Repeat BMP and CBC within 3 days. Follow-up results with PCP. Discharge Disposition: HOME SELF-CARE
--- NOTE | 2019-03-15 16:49 | CONS ---
CONSULTATION DATE OF DICTATION: March 15, 2019. REQUESTING PHYSICIAN: Dr. Proctor and Dr. Faizan Estrella. REASON FOR CONSULTATION: Rectal bleeding. HISTORY OF PRESENT ILLNESS: The patient is a 73 -year-old pleasant white female who has history of atrial fibrillation on Pradaxa, history of hypertension, hyperlipidemia, came to the emergency room with bright red blood per rectum. She had a bowel movement yesterday that was normal and 2 hours later she started noticing significant amount of blood on the pad that she usually wears for urine incontinence. She continued to have dripping of the bright red blood for 2 hours and then she came to the emergency room and subsequently admitted to the hospital for further evaluation. The patient stated that she had a similar episode about 2 years ago when she was living in [place] and she had a colonoscopy done and was diagnosed with internal hemorrhoids. She had another colonoscopy in June of [address] Dan for the same reason and was noted to have internal and external hemorrhoids. The patient this morning is doing better. She had no bowel movements. She denies any further episodes of rectal bleeding. She denies any abdominal pain. On a clear liquid diet, tolerating well. PAST MEDICAL HISTORY: Significant for atrial fibrillation on Pradaxa, hypertension, hyperlipidemia, degenerative joint disease. PAST SURGICAL HISTORY: Cardiac catheterization, adenoidectomy, appendectomy, hysterectomy, tonsillectomy, tubal ligation, bilateral cataract surgery. MEDICATIONS: At home include Lioresal, Pradaxa, [place], Univasc, Pravachol, verapamil, Xalatan, Prilosec, Ventolin, Voltaren, Symbicort, hydrochlorothiazide, Proctosol. ALLERGIES: No known drug allergies. SOCIAL HISTORY: No smoking. No alcohol use. FAMILY HISTORY: Father had COPD. Mother has osteoarthritis. REVIEW OF SYSTEMS: CARDIOPULMONARY: No chest pain, shortness of breath. GENITOURINARY: No dysuria or hematuria. MUSCULOSKELETAL unremarkable. SKIN unremarkable. ENDOCRINE unremarkable. PSYCHIATRIC unremarkable. NEUROLOGY unremarkable. ENT/vision unremarkable. CONSTITUTIONAL: No recent weight loss. No fever, chills, night sweats. PHYSICAL EXAMINATION: Blood pressure 161/79, pulse rate 69, temperature 97.5. HEENT examination unremarkable. Conjunctivae pink. Sclerae anicteric. Oral cavity no lesions. NECK: No JVD or lymph node enlargement. CHEST: Clear to auscultation. HEART: Regular rate and rhythm. ABDOMEN: Soft. Bowel sounds are positive. No organomegaly. EXTREMITIES: No pedal edema. SKIN: No rashes. NEUROLOGIC: Alert and oriented x3. No focal deficits. LABS: Done today WBC 13.1 and repeat was 14.2. The rest of the CBC was within normal limits. BUN 36, creatinine 0.7. Stool occult blood was positive. IMPRESSION: 1. This is a lady who presents to the emergency room with an episode of rectal bleeding that started yesterday afternoon after having a normal bowel movement. She had dripping of bright red blood for an hour or so and then it gradually subsided. Since then, she did not have any further episodes of bleeding. Hemoglobin stable at 14.2 g/dL. 2. Atrial fibrillation on Pradaxa, which has been on hold. 3. History of hypertension and hyperlipidemia. RECOMMENDATIONS: Most likely we are dealing with bleeding from internal hemorrhoids. The patient mentioned that she had a colonoscopy 2 years ago in [place] for the same reason and was diagnosed with internal hemorrhoids. At this time, stop the Pradaxa. She was advised to avoid straining and constipation. We will repeat CBC tomorrow morning. Advance diet as tolerated. No plans for any endoscopy intervention at the present time. If the bleeding stops, she can be discharged home later today or tomorrow. Thank you for this consultation. MMMORAL / BILLN: [id number] /
[2019-03-16 12:02] LABS: Folate, Serum 15.8 ng/mL
== END 2019-03-15 11:07 | disposition home or self-care (01) ==
LOC: EC 07:10 → 4MS4W 09:38
PROVIDERS: ADMIT Family Medicine; ATTEND Family Medicine
DX: K57.91 Diverticulosis of intestine, part unspecified, without perforation or abscess with bleeding (principal); K64.8 Other hemorrhoids; D53.9 Nutritional anemia, unspecified; E87.6 Hypokalemia; E87.3 Alkalosis; I48.91 Unspecified atrial fibrillation; J44.9 Chronic obstructive pulmonary disease, unspecified; I10 Essential (primary) hypertension; E78.5 Hyperlipidemia, unspecified; R19.7 Diarrhea, unspecified; K59.00 Constipation, unspecified; R32 Unspecified urinary incontinence; R15.9 Full incontinence of feces; R63.0 Anorexia; R19.5 Other fecal abnormalities; K21.9 Gastro-esophageal reflux disease without esophagitis; M19.90 Unspecified osteoarthritis, unspecified site; I83.90 Asymptomatic varicose veins of unspecified lower extremity; H40.9 Unspecified glaucoma; Z79.899 Other long term (current) drug therapy; Z79.51 Long term (current) use of inhaled steroids; Z79.01 Long term (current) use of anticoagulants; Z86.010 Personal history of colon polyps; Z87.01 Personal history of pneumonia (recurrent); Z87.09 Personal history of other diseases of the respiratory system; Z87.11 Personal history of peptic ulcer disease; Z90.89 Acquired absence of other organs; Z90.49 Acquired absence of other specified parts of digestive tract; Z98.890 Other specified postprocedural states; Z90.710 Acquired absence of both cervix and uterus; Z98.51 Tubal ligation status; Z98.42 Cataract extraction status, left eye; Z98.41 Cataract extraction status, right eye; Z82.5 Family history of asthma and other chronic lower respiratory diseases; Z82.61 Family history of arthritis; Z83.79 Family history of other diseases of the digestive system
CPT/HCPCS: 96376; 96374; 99285; 36415; 94640 ×3; 80053; 80048; 82607; 82746; 85025 ×2; 85610; 85730; 82272; G0378 ×2; C9113 ×2

== ENCOUNTER 2019-04-21 04:30 | Inpatient (IN) | payer MEDICARE, OTHER ==
--- NOTE | 2019-04-21 05:07 | ED ---
GI Bleed HPI - General Chief complaint: GI Bleed Stated complaint: GI Bleed Time Seen by Provider: 04/21/19 04:58 Source: patient, EMS Mode of arrival: EMS Limitations: no limitations - History of Present Illness Initial comments: This patient 74-year-old woman who presents to be evaluate for some bright red blood with bowel movement. She states that it started at 4 AM yesterday. She had a bowel movement and noted there was bright her blood in the toilet and on wiping. She states that she did have a little bit of blood that continued until 8 AM. She states that after that things had stopped and she was feeling well until about 4 AM today when this recurred. The patient states she does take Pradaxa for atrial fibrillation, but she did hold her dose of that yesterday. Patient is denying any symptoms of anemia, including no chest pain, diaphoresis, dyspnea, lightheadedness, palpitations, syncopal episode, nausea or vomiting. The patient has not had any abdominal or perianal pains MD complaint: blood on toilet paper, blood streaked stool Onset/Timin -: hour(s) Radiation: none Severity scale (1-10): 0 Quality: painless Consistency: intermittent Improves with: none Worsens with: bowel movement Context: history of GI bleed Associated Symptoms: denies other symptoms - Related Data Home Medications Medication Instructions Recorded Confirmed Albuterol Inhaler [Ventolin Hfa 2 puff INHALATION RT-QID PRN 07/20/15 03/14/19 Inhaler] Baclofen [Lioresal] 10 mg PO TID PRN 07/20/15 03/14/19 Dabigatran [Pradaxa] 150 mg PO BID 07/20/15 03/14/19 Hydrocodone/Acetaminophen [[place] 1 tab PO QID PRN 07/20/15 03/14/19 7.5-325] Moexipril [Univasc] 7.5 mg PO BID 07/20/15 03/14/19 Pravastatin Sodium [Pravachol] 40 mg PO DAILY 07/20/15 03/14/19 Verapamil HCl [Verapamil ER] 240 mg PO BID 04/11/16 03/14/19 Latanoprost [Xalatan 0.005%] 1 drop BOTH EYES HS 10/15/16 03/14/19 Nadolol 40 mg PO DAILY 10/15/16 03/14/19 Omeprazole [PriLOSEC] 20 mg PO DAILY 01/16/17 03/14/19 Albuterol Nebulized [Ventolin 2.5 mg INHALATION RT-TID 08/11/17 03/14/19 Nebulized] Budesonide/Formoterol Fumarate 2 puff INHALATION RT-BID 08/11/17 03/14/19 [Symbicort 160-4.5 Mcg Inhaler] Diclofenac Sodium Gel [Voltaren 1 gm TOPICAL BID PRN 03/14/19 03/14/19 Gel] Hydrochlorothiazide 12.5 mg PO DAILY 03/14/19 03/14/19 Hydrocortisone Pr Cream 1 applic RECTAL BID PRN 03/14/19 03/14/19 [Proctosol-Hc 2.5%] Allergies Allergy/AdvReac Type Severity Reaction Status Date / Time No Known Allergies Allergy Verified 03/14/19 08:47 Review of Systems ROS Statement: Those systems with pertinent positive or pertinent negative responses have been documented in the HPI. ROS Other: All systems not noted in ROS Statement are negative. Constitutional: Denies: fever, chills, weakness Respiratory: Denies: cough, dyspnea Cardiovascular: Denies: chest pain, palpitations, edema, syncope Gastrointestinal: Reports: hematochezia. Denies: abdominal pain, nausea, vomiting, diarrhea, constipation, melena Genitourinary: Denies: dysuria, frequency Musculoskeletal: Denies: back pain Skin: Denies: rash Neurological: Denies: headache, weakness Hematological/Lymphatic: Reports: as per HPI Past Medical History Past Medical History: Atrial Fibrillation, Asthma, COPD, GERD/Reflux, Hyperlipidemia, Hypertension, Osteoarthritis (OA), Pneumonia Additional Past Medical History / Comment(s): DJD, VARICOSE VEINS, BRONCHITIS, GLAUCOMA, stomach ULCER,DIVERTICULITIS,constipation History of Any Multi-Drug Resistant Organisms: None Reported Past Surgical History: Adenoidectomy, Appendectomy, Heart Catheterization, Hysterectomy, Tonsillectomy, Tubal Ligation Additional Past Surgical History / Comment(s): BILLY CATARACTS. Past Anesthesia/Blood Transfusion Reactions: No Reported Reaction Past Psychological History: No Psychological Hx Reported Smoking Status: Never smoker Past Alcohol Use History: None Reported Past Drug Use History: None Reported - Past Family History Father Family Medical History: COPD Additional Family Medical History / Comment(s): EMPHYSEMA Mother Family Medical History: Osteoarthritis (OA) Additional Family Medical History / Comment(s): EMPHYSEMA, BOWEL OBSTRUCTION/COLOSTOMY General Exam Limitations: no limitations General appearance: alert, in no apparent distress Head exam: Present: atraumatic, normocephalic Eye exam: Present: normal appearance. Absent: scleral icterus, conjunctival injection ENT exam: Present: normal oropharynx Neck exam: Present: normal inspection, full ROM Respiratory exam: Present: normal lung sounds bilaterally. Absent: respiratory distress, wheezes, rales, rhonchi, stridor Cardiovascular Exam: Present: regular rate, normal rhythm, normal heart sounds. Absent: systolic murmur, diastolic murmur, rubs, gallop GI/Abdominal exam: Present: soft, normal bowel sounds. Absent: distended, tenderness, guarding, rebound, rigid, mass, pulsatile mass, hernia Rectal exam: Present: normal rectal tone, hemorrhoids, other (There are some external hemorrhoids). Absent: black stool, bloody stool, mass, tenderness Extremities exam: Present: normal inspection, normal capillary refill. Absent: pedal edema, calf tenderness Back exam: Present: normal inspection. Absent: CVA tenderness (R), CVA tenderness (L) Neurological exam: Present: alert Skin exam: Present: warm, dry, intact, normal color. Absent: rash Course Vital Signs 04/21/19 04/21/19 04:33 06:06 Temperature 97.2 F L Pulse Rate 73 74 Respiratory 18 18 Rate Blood Pressure 193/92 184/95 O2 Sat by Pulse 96 95 Oximetry Medical Decision Making - Lab Data Result diagrams: 04/21/19 04:45 04/21/19 04:45 Lab Results 04/21/19 04/21/19 04/21/19 Range/Units 04:45 04:45 04:45 WBC 8.1 (3.8-10.6) k/uL RBC 3.96 (3.80-5.40) m/uL Hgb 13.3 (11.4-16.0) gm/dL Hct 39.4 (34.0-46.0) % MCV 99.5 (80.0-100.0) fL MCH 33.7 (25.0-35.0) pg MCHC 33.8 (31.0-37.0) g/dL RDW 13.2 (11.5-15.5) % Plt Count 238 (150-450) k/uL Neutrophils % (Manual) 56 % Lymphocytes % (Manual) 34 % Monocytes % (Manual) 7 % Eosinophils % (Manual) 3 % Neutrophils # (Manual) 4.54 (1.3-7.7) k/uL Lymphocytes # (Manual) 2.75 (1.0-4.8) k/uL Monocytes # (Manual) 0.57 (0-1.0) k/uL Eosinophils # (Manual) 0.24 (0-0.7) k/uL Nucleated RBCs 0 (0-0) /100 WBC Manual Slide Review Performed Large Platelets Present PT 10.8 (9.0-12.0) sec INR 1.0 (<1.2) APTT 31.9 H (22.0-30.0) sec Sodium 142 (137-145) mmol/L Potassium 2.9 L (3.5-5.1) mmol/L Chloride 101 (98-107) mmol/L Carbon Dioxide 36 H (22-30) mmol/L Anion Gap 5 mmol/L BUN 25 H (7-17) mg/dL Creatinine 0.77 (0.52-1.04) mg/dL Est GFR (CKD-EPI)AfAm 87 (>60 ml/min/1.73 sqM) Est GFR (CKD-EPI)NonAf 76 (>60 ml/min/1.73 sqM) Glucose 96 (74-99) mg/dL Calcium 10.0 (8.4-10.2) mg/dL Total Bilirubin 0.8 (0.2-1.3) mg/dL AST 26 (14-36) U/L ALT 12 (4-34) U/L Alkaline Phosphatase 72 (38-126) U/L Troponin I (0.000-0.034) ng/mL Total Protein 6.3 (6.3-8.2) g/dL Albumin 3.7 (3.5-5.0) g/dL 04/21/19 Range/Units 04:45 WBC (3.8-10.6) k/uL RBC (3.80-5.40) m/uL Hgb (11.4-16.0) gm/dL Hct (34.0-46.0) % MCV (80.0-100.0) fL MCH (25.0-35.0) pg MCHC (31.0-37.0) g/dL RDW (11.5-15.5) % Plt Count (150-450) k/uL Neutrophils % (Manual) % Lymphocytes % (Manual) % Monocytes % (Manual) % Eosinophils % (Manual) % Neutrophils # (Manual) (1.3-7.7) k/uL Lymphocytes # (Manual) (1.0-4.8) k/uL Monocytes # (Manual) (0-1.0) k/uL Eosinophils # (Manual) (0-0.7) k/uL Nucleated RBCs (0-0) /100 WBC Manual Slide Review Large Platelets PT (9.0-12.0) sec INR (<1.2) APTT (22.0-30.0) sec Sodium (137-145) mmol/L Potassium (3.5-5.1) mmol/L Chloride (98-107) mmol/L Carbon Dioxide (22-30) mmol/L Anion Gap mmol/L BUN (7-17) mg/dL Creatinine (0.52-1.04) mg/dL Est GFR (CKD-EPI)AfAm (>60 ml/min/1.73 sqM) Est GFR (CKD-EPI)NonAf (>60 ml/min/1.73 sqM) Glucose (74-99) mg/dL Calcium (8.4-10.2) mg/dL Total Bilirubin (0.2-1.3) mg/dL AST (14-36) U/L ALT (4-34) U/L Alkaline Phosphatase (38-126) U/L Troponin I <0.012 (0.000-0.034) ng/mL Total Protein (6.3-8.2) g/dL Albumin (3.5-5.0) g/dL - EKG Data -: EKG Interpreted by Me EKG shows normal: sinus rhythm, axis (Normal), intervals (ND interval to 90 ms, prolonged consistent with first-degree AV block. QRS duration 86 ms, normal. QTC 494 ms, prolonged.), QRS complexes (Normal), ST-T waves (Normal) Rate: normal Disposition Clinical Impression: Rectal bleeding, Hypokalemia Disposition: ADMITTED IP TO THIS HOSP Condition: Good Is patient prescribed a controlled substance at d/c from ED?: No
[2019-04-21 05:29] LABS: HCT 39.4 % (34.0-46.0); HGB 13.3 gm/dL (11.4-16.0); MCH 33.7 pg (25.0-35.0); MCHC 33.8 g/dL (31.0-37.0); MCV 99.5 fL (80.0-100.0); Mean Platelet Volume 8.6; Platelet Count 238 k/uL (150-450); RBC 3.96 m/uL (3.80-5.40); RDW 13.2 % (11.5-15.5); WBC 8.1 k/uL (3.8-10.6)
[2019-04-21 05:34] LABS: Partial Thromboplastin Time 31.9 sec (22.0-30.0); Prothrombin Time 10.8 sec (9.0-12.0)
[2019-04-21 05:46] LABS: Albumin 3.7 g/dL (3.5-5.0); Potassium 2.9 mmol/L (3.5-5.1); Total Bilirubin 0.8 mg/dL (0.2-1.3); Total Protein 6.3 g/dL (6.3-8.2)
[2019-04-21] MEDS ORDERED: POTASSIUM CHLORIDE ER 20 MEQ TAB.ER PO STA (06:17)
[2019-04-21 06:39] LABS: Eosinophils # (M) 0.24 k/uL (0-0.7); Lymphocytes # (M) 2.75 k/uL (1.0-4.8); Monocytes # (M) 0.57 k/uL (0-1.0); Neutrophils # (M) 4.54 k/uL (1.3-7.7); Neutrophils % (M) 56 %; Nucleated Red Blood Cells 0 /100 WBC (0-0); Total Cells Counted 100
[2019-04-21 06:40] LABS: Large Platelets Present
[2019-04-21] MEDS ORDERED: NALOXONE 0.4 MG/ML 1 ML VIAL IV PRN (06:57)
[2019-04-21] MEDS ORDERED: HYDROCORTISONE 2.5% RECTAL CREAM 30 GM TUBE RECTAL PRN (07:07)
[2019-04-21] MEDS: SODIUM CHLORIDE 0.9% 1,000 ML IV SCH ×2 (07:22→19:09)
[2019-04-21] MEDS: PANTOPRAZOLE 40 MG TABLET PO SCH (08:56)
[2019-04-21] MEDS: HYDROcodone/APAP 7.5-325MG 1 EACH TAB PO PRN ×2 (08:56→21:01)
[2019-04-21] MEDS: BACLOFEN 10 MG TAB PO PRN ×2 (08:56→21:02)
[2019-04-21] MEDS: PRAVASTATIN SODIUM 40 MG TAB PO SCH (08:57)
[2019-04-21] MEDS: POTASSIUM CHLORIDE ER 20 MEQ TAB.ER PO SCH ×2 (08:57→21:01)
[2019-04-21] MEDS: VERAPAMIL SR 240 MG TABLET.ER PO SCH ×2 (08:58→21:02)
[2019-04-21] MEDS: NADOLOL 20 MG TAB PO SCH (08:58)
[2019-04-21] MEDS: HYDROCHLOROTHIAZIDE 12.5 MG CAP PO SCH (08:58)
[2019-04-21] MEDS: SYMBICORT 160-4.5 MCG INHALER INHALATION SCH ×2 (09:00→19:17)
[2019-04-21] MEDS: ALBUTEROL NEBULIZED 2.5 MG/3 ML INHALATION SCH ×3 (09:00→19:17)
--- NOTE | 2019-04-21 14:16 | P.GSCN ---
<Angelina Newman A - Last Filed: 04/21/19 14:08> History of Present Illness Consult date: 04/21/19 Reason for Consult: GI bleed Requesting physician: Pebbles Mantilla History of present illness: CHIEF COMPLAINT: GI bleeding HISTORY OF PRESENT ILLNESS: 74 year old female who presented to the emergency room with a chief complaint of bright red blood per rectum. Patient is prescribed Pradaxa outpatient. She reports waking up this morning and noticed bright red blood in the toilet and on the toilet paper when she wiped. No further episodes of bleeding since coming to the hospital. Denies abdominal p ain. Denies nausea or vomiting. PAST MEDICAL HISTORY: See list. PAST SURGICAL HISTORY: See list. MEDICATIONS: See list. ALLERGIES: See list. SOCIAL HISTORY: No illicit drug use. REVIEW OF SYSTEMS: CONSTITUTIONAL: Denies fever or chills. HEENT: Denies blurred vision, vision changes, or eye pain. Denies hemoptysis ENDOCRINE: Denies heat or cold intolerance. CARDIOVASCULAR: Denies chest pain or pressure. RESPIRATORY: No shortness of breath. GASTROINTESTINAL: See HPI for pertinent findings NEURO: Denies history of seizures. PSYCH: No depression or suicidal ideation HEMATOLOGIC: Denies bleeding disorders. LYMPHATIC: The patient denies any lumps and bumps around the neck. GENITOURINARY: Denies any blood in urine or increased urinary frequency. MUSCULOSKELETAL: Denies myalgias. Denies joint swelling. Denies decreased range of motion beyond patients baseline. SKIN: Denies pruitis. Denies rash. PHYSICAL EXAM: VITAL SIGNS: Reviewed GENERAL: Well-developed in no acute distress. HEENT: No sclera icterus. Extraocular movements grossly intact. Moist buccal mucosa. Head is atraumatic, normocephalic. Hears conversational speech. No nasal drainage. NECK: Supple without lymphadenopathy. CHEST: Non-labored respirations and equal bilateral excursions. CARDIOVASCULAR: Regular rate with regular rhythm. Palpable 2+ radial pulses. ABDOMEN: Soft. Nondistended. Nontender. MUSCULOSKELETAL: No clubbing, cyanosis or edema. NEUROLOGIC: No focal or lateralizing signs. Cranial nerves II through XII grossly intact. PSYCH: Appropriate affect. Alert and oriented to person, place and time. SKIN: Well perfused. Good skin turgor. LABORATORY DATA: WBC 8.1. Hemoglobin 13.3. ASSESSMENT: 1. Bright red blood per rectum 2. History of known AVM malformation 3. Chronic anticoagulant use PLAN: Hold Pradaxa Monitor hemoglobin Clear liquid diet Dr. Dan is planning colonoscopy with cauterization of AV malformation during hospitalization. Patient will require bowel prep. Further timing of colonoscopy to be determined by Dr. Dan. Nurse practitioner note has been reviewed by physician. Signing provider agrees with the documented findings, assessment, and plan of care. Past Medical History Past Medical History: Atrial Fibrillation, Asthma, COPD, GERD/Reflux, Hyperlipidemia, Hypertension, Osteoarthritis (OA), Pneumonia Additional Past Medical History / Comment(s): DJD, VARICOSE VEINS, BRONCHITIS, GLAUCOMA, stomach ULCER,DIVERTICULITIS,constipation History of Any Multi-Drug Resistant Organisms: None Reported Past Surgical History: Adenoidectomy, Appendectomy, Heart Catheterization, Hysterectomy, Tonsillectomy, Tubal Ligation Additional Past Surgical History / Comment(s): BILLY CATARACTS. Past Anesthesia/Blood Transfusion Reactions: No Reported Reaction Past Psychological History: No Psychological Hx Reported Smoking Status: Never smoker Past Alcohol Use History: None Reported Past Drug Use History: None Reported - Past Family History Father Family Medical History: COPD Additional Family Medical History / Comment(s): EMPHYSEMA Mother Family Medical History: Osteoarthritis (OA) Additional Family Medical History / Comment(s): EMPHYSEMA, BOWEL OBSTRUCTION/COLOSTOMY Medications and Allergies Home Medications Medication Instructions Recorded Confirmed Type Albuterol Inhaler [Ventolin Hfa 2 puff INHALATION RT-QID PRN 07/20/15 04/21/19 History Inhaler] Baclofen [Lioresal] 10 mg PO TID PRN 07/20/15 04/21/19 History Dabigatran [Pradaxa] 150 mg PO BID 07/20/15 04/21/19 History Hydrocodone/Acetaminophen [[place] 1 tab PO QID PRN 07/20/15 04/21/19 History 7.5-325] Moexipril [Univasc] 7.5 mg PO BID 07/20/15 04/21/19 History Pravastatin Sodium [Pravachol] 40 mg PO DAILY 07/20/15 04/21/19 History Verapamil HCl [Verapamil ER] 240 mg PO BID 04/11/16 04/21/19 History Latanoprost [Xalatan 0.005%] 1 drop BOTH EYES HS 10/15/16 04/21/19 History Nadolol 40 mg PO DAILY 10/15/16 04/21/19 History Omeprazole [PriLOSEC] 20 mg PO DAILY 01/16/17 04/21/19 History Albuterol Nebulized [Ventolin 2.5 mg INHALATION RT-TID 08/11/17 04/21/19 History Nebulized] Budesonide/Formoterol Fumarate 2 puff INHALATION RT-BID 08/11/17 04/21/19 His tory [Symbicort 160-4.5 Mcg Inhaler] Hydrochlorothiazide 12.5 mg PO DAILY 03/14/19 04/21/19 History Allergies Allergy/AdvReac Type Severity Reaction Status Date / Time No Known Allergies Allergy Verified 04/21/19 07:55 Surgical - Exam Vital Signs Temp Pulse Resp BP Pulse Ox 97.2 F L 73 18 193/92 96 04/21/19 04:33 04/21/19 04:33 04/21/19 04:33 04/21/19 04:33 04/21/19 04:33 Results - Labs 04/21/19 04:45 04/21/19 04:45 Abnormal Lab Results - Last 24 Hours (Table) 04/21/19 04/21/19 04/21/19 Range/Units 04:45 04:45 06:22 APTT 31.9 H (22.0-30.0) sec Potassium 2.9 L (3.5-5.1) mmol/L Carbon Dioxide 36 H (22-30) mmol/L BUN 25 H (7-17) mg/dL Stool Occult Blood Positive H (Negative) Diabetes panel 04/21/19 Range/Units 04:45 Sodium 142 (137-145) mmol/L Potassium 2.9 L (3.5-5.1) mmol/L Chloride 101 (98-107) mmol/L Carbon Dioxide 36 H (22-30) mmol/L BUN 25 H (7-17) mg/dL Creatinine 0.77 (0.52-1.04) mg/dL Glucose 96 (74-99) mg/dL Calcium 10.0 (8.4-10.2) mg/dL AST 26 (14-36) U/L ALT 12 (4-34) U/L Alkaline Phosphatase 72 (38-126) U/L Total Protein 6.3 (6.3-8.2) g/dL Albumin 3.7 (3.5-5.0) g/dL Calcium panel 04/21/19 Range/Units 04:45 Calcium 10.0 (8.4-10.2) mg/dL Albumin 3.7 (3.5-5.0) g/dL Pituitary panel 04/21/19 Range/Units 04:45 Sodium 142 (137-145) mmol/L Potassium 2.9 L (3.5-5.1) mmol/L Chloride 101 (98-107) mmol/L Carbon Dioxide 36 H (22-30) mmol/L BUN 25 H (7-17) mg/dL Creatinine 0.77 (0.52-1.04) mg/dL Glucose 96 (74-99) mg/dL Calcium 10.0 (8.4-10.2) mg/dL Adrenal panel 04/21/19 Range/Units 04:45 Sodium 142 (137-145) mmol/L Potassium 2.9 L (3.5-5.1) mmol/L Chloride 101 (98-107) mmol/L Carbon Dioxide 36 H (22-30) mmol/L BUN 25 H (7-17) mg/dL Creatinine 0.77 (0.52-1.04) mg/dL Glucose 96 (74-99) mg/dL Calcium 10.0 (8.4-10.2) mg/dL Total Bilirubin 0.8 (0.2-1.3) mg/dL AST 26 (14-36) U/L ALT 12 (4-34) U/L Alkaline Phosphatase 72 (38-126) U/L Total Protein 6.3 (6.3-8.2) g/dL Albumin 3.7 (3.5-5.0) g/dL <Anyi Dan N - Last Filed: 04/22/19 12:29> History of Present Illness History of present illness: Patient has history of AV malformation. Additionally she has multiple episodes of rectal bleeding. Recommend discontinue anticoagulant. Also recommend colonoscopy therapeutic for fulguration of AV malformation Surgical - Exam Vital Signs Temp Pulse Resp BP Pulse Ox 97.2 F L 73 18 193/92 96 04/21/19 04:33 04/21/19 04:33 04/21/19 04:33 04/21/19 04:33 04/21/19 04:33 Results - Labs 04/22/19 07:59 04/21/19 19:31 Abnormal Lab Results - Last 24 Hours (Table) 04/22/19 Range/Units 07:59 MCV 102.0 H (80.0-100.0) fL Diabetes panel 04/21/19 Range/Units 19:31 Potassium 4.6 (3.5-5.1) mmol/L Pituitary panel 04/21/19 Range/Units 19:31 Potassium 4.6 (3.5-5.1) mmol/L Adrenal panel 04/21/19 Range/Units 19:31 Potassium 4.6 (3.5-5.1) mmol/L
[2019-04-21] MEDS: POTASSIUM CHLORIDE 20 MEQ in WATER FOR INJECTION 1 100ML.BAG IVPB SCH ×2 (14:46→17:35)
--- NOTE | 2019-04-21 15:16 | P.HPIM ---
History of Present Illness H&P Date: 04/21/19 Chief Complaint: Rectal bleed 73-year-old female with PMH of atrial fibrillation on Pradaxa, COPD, hypertension, hyperlipidemia results the ED for bright red blood per rectum. Patient was recently discharged in February for bright red blood per rectum that spontaneously resolved. Patient states that she had been doing generally well since her discharge last month. She woke up yesterday morning around 4 AM with bright red blood per rectum. Patient states that this bleed lasted for about 4- 1/2 hours before spontaneously resolving. When her symptoms reappeared today, this prompted patient to come to the ED. Patient reports right red blood that fills the toilet bowl. She denies any pain with defecation. Patient denies any headaches, lower laurence edema, nausea or vomiting, fever or chills, cough, chest pain, shortness of breath, palpitations, changes in urination or bowel habits. No changes in appetite or weight. She denies any dizziness, numbness/weakness/tingling of the extremities. In the ED, her vital signs are stable. CBC was unremarkable. CMP showed a PTT of 31.9. CMP showed potassium of 2.9, bicarbonate 36, BUN 25. FOBT was positive. Patient is admitted for GI bleed, surgery on consult. Review of Systems Pertinent positives and negatives as discussed in HPI, a complete review of systems was performed and all other systems are negative. Past Medical History Past Medical History: Atrial Fibrillation, Asthma, COPD, GERD/Reflux, Hyperlipi demia, Hypertension, Osteoarthritis (OA), Pneumonia Additional Past Medical History / Comment(s): DJD, VARICOSE VEINS, BRONCHITIS, GLAUCOMA, stomach ULCER,DIVERTICULITIS,constipation History of Any Multi-Drug Resistant Organisms: None Reported Past Surgical History: Adenoidectomy, Appendectomy, Heart Catheterization, Hysterectomy, Tonsillectomy, Tubal Ligation Additional Past Surgical History / Comment(s): BILLY CATARACTS. Past Anesthesia/Blood Transfusion Reactions: No Reported Reaction Past Psychological History: No Psychological Hx Reported Smoking Status: Never smoker Past Alcohol Use History: None Reported Past Drug Use History: None Reported - Past Family History Father Family Medical History: COPD Additional Family Medical History / Comment(s): EMPHYSEMA Mother Family Medical History: Osteoarthritis (OA) Additional Family Medical History / Comment(s): EMPHYSEMA, BOWEL OBSTRUCTION/COLOSTOMY Medications and Allergies Home Medications Medication Instructions Recorded Confirmed Type Albuterol Inhaler [Ventolin Hfa 2 puff INHALATION RT-QID PRN 07/20/15 04/21/19 History Inhaler] Baclofen [Lioresal] 10 mg PO TID PRN 07/20/15 04/21/19 History Dabigatran [Pradaxa] 150 mg PO BID 07/20/15 04/21/19 History Hydrocodone/Acetaminophen [[place] 1 tab PO QID PRN 07/20/15 04/21/19 History 7.5-325] Moexipril [Univasc] 7.5 mg PO BID 07/20/15 04/21/19 History Pravastatin Sodium [Pravachol] 40 mg PO DAILY 07/20/15 04/21/19 History Verapamil HCl [Verapamil ER] 240 mg PO BID 04/11/16 04/21/19 History Latanoprost [Xalatan 0.005%] 1 drop BOTH EYES HS 10/15/16 04/21/19 History Nadolol 40 mg PO DAILY 10/15/16 04/21/19 History Omeprazole [PriLOSEC] 20 mg PO DAILY 01/16/17 04/21/19 History Albuterol Nebulized [Ventolin 2.5 mg INHALATION RT-TID 08/11/17 04/21/19 History Nebulized] Budesonide/Formoterol Fumarate 2 puff INHALATION RT-BID 08/11/17 04/21/19 History [Symbicort 160-4.5 Mcg Inhaler] Hydrochlorothiazide 12.5 mg PO DAILY 03/14/19 04/21/19 History Allergies Allergy/AdvReac Type Severity Reaction Status Date / Time No Known Allergies Allergy Verified 04/21/19 07:55 Physical Exam Vitals: Vital Signs Temp Pulse Resp BP Pulse Ox 04/21/19 13:33 61 04/21/19 13:21 62 04/21/19 12:31 82 16 126/76 95 04/21/19 10:12 98.6 F 75 18 159/89 95 04/21/19 09:13 79 04/21/19 09:02 78 04/21/19 09:00 85 20 193/93 95 04/21/19 08:00 75 18 176/91 95 04/21/19 07:25 97.3 F L 75 16 180/97 96 04/21/19 07:00 73 15 184/95 96 04/21/19 06:06 74 18 184/95 95 04/21/19 04:33 97.2 F L 73 18 193/92 96 Intake and Output 04/20/19 04/21/19 04/21/19 22:59 06:59 14:59 Other: Weight 55.338 kg General: [non toxic], [no distress], [appears at stated age] Derm: [warm], [dry] Head: [atraumatic], [normocephalic], [symmetric] Eyes: [EOMI], [no lid lag], [anicteric sclera] Mouth: [no lip lesion], [mucus membranes moist] Cardiovascular: [S1S2 reg], [no murmur], [positive posterior tibial pulse bilateral], Lungs: [CTA bilateral], [no rhonchi, no rales] , [no accessory muscle use] Abdominal: [soft], [ nontender to palpation], [no guarding], [no appreciable organomegaly] Ext: [no gross muscle atrophy], [no edema], [no contractures] Neuro: [ CN II-XI grossly intact], [no focal neuro deficits] Psych: [Alert], [oriented], [appropriate affect] Results CBC & Chem 7: 04/21/19 04:45 04/21/19 04:45 Labs: Abnormal Lab Results - Last 24 Hours (Table) 04/21/19 04/21/19 04/21/19 Range/Units 04:45 04:45 06:22 APTT 31.9 H (22.0-30.0) sec Potassium 2.9 L (3.5-5.1) mmol/L Carbon Dioxide 36 H (22-30) mmol/L BUN 25 H (7-17) mg/dL Stool Occult Blood Positive H (Negative) Assessment and Plan Assessment: Assessment and plan Lower GI bleed Hypokalemia Metabolic alkalosis Elevated BUN Atrial fibrillation COPD Hypertension Dyslipidemia FOBT positive. Hemoglobin 13.3. Painless, likely internal hemorrhoids with known history of AV malformation. Plans: Protonix 40 mg by mouth daily. Zofran as needed for nausea or vomiting. Clear liquid diet and advance as tolerated. Repeat CBC tomorrow morning. Hold Pradaxa. Follow general surgery and GI consultation. Potassium 2.9. Unknown significance. Plans: Replace via protocol. Repeat K at 3PM. HCO3 of 36. Patient has had no vomiting. Unknown significance. Plans: Repeat BMP tomorrow morning. BUN 25. Likely due to dehydration. Plans: Encourage hydration by mouth. Repeat BMP tomorrow morning. Plans: Continue beta bette. Continue verapamil. Hold Pradaxa due to GI bleed. Plans: Albuterol neb as needed for shortness of breath and wheezing. BP 126/76. Plans: Continue lisinopril, Nadolol, verapamil and hydrochlorothiazide. Monitor vitals, adjust medications as necessary. Plans: Resume pravastatin. DVT prophylaxis: [SCD] Discussed with: [Patient] Anticipated discharge: [1-2 days] Anticipated discharge place: [Home] A total of [45] minutes was spent on the care of this complex patient more than 50% of the time was spent in counseling and care coordination. Patient names her daughter Boo decision-maker indicates that she can't make decisions for herself. Patient wants to be full code at this time.
[2019-04-21] MEDS: LATANOPROST 0.005% OPHTH DROPS 2.5 ML BTL BOTH EYES SCH (21:01)
[2019-04-22] MEDS: SODIUM CHLORIDE 0.9% 1,000 ML IV SCH ×2 (05:15→15:12)
[2019-04-22] MEDS: HYDROCHLOROTHIAZIDE 12.5 MG CAP PO SCH (07:22)
[2019-04-22] MEDS: PRAVASTATIN SODIUM 40 MG TAB PO SCH (07:22)
[2019-04-22] MEDS: PANTOPRAZOLE 40 MG TABLET PO SCH (07:22)
[2019-04-22] MEDS: NADOLOL 20 MG TAB PO SCH (07:23)
[2019-04-22] MEDS: VERAPAMIL SR 240 MG TABLET.ER PO SCH ×2 (07:23→22:11)
[2019-04-22] MEDS: POTASSIUM CHLORIDE ER 20 MEQ TAB.ER PO SCH ×2 (07:23→22:12)
[2019-04-22] MEDS: BACLOFEN 10 MG TAB PO PRN ×2 (07:28→22:17)
[2019-04-22] MEDS: HYDROcodone/APAP 7.5-325MG 1 EACH TAB PO PRN ×2 (07:28→22:12)
[2019-04-22] MEDS ORDERED: POLYETHYLENE GLYCOL LYTES SOLN 4,000 ML SOLN.RECON PO ONE (08:00)
[2019-04-22] MEDS: SYMBICORT 160-4.5 MCG INHALER INHALATION SCH ×2 (08:40→20:57)
[2019-04-22] MEDS: ALBUTEROL NEBULIZED 2.5 MG/3 ML INHALATION SCH ×3 (08:40→20:56)
[2019-04-22 09:12] LABS: Basophils % (A) 0 %; Eosinophils # (A) 0.2 k/uL (0-0.7); Eosinophils % (A) 2 %; HCT 39.3 % (34.0-46.0); HGB 12.9 gm/dL (11.4-16.0); Lymphocytes # (A) 1.8 k/uL (1.0-4.8); Lymphocytes % (A) 21 %; MCH 33.5 pg (25.0-35.0); MCHC 32.8 g/dL (31.0-37.0); Macrocytosis Slight; Mean Platelet Volume 8.6; Monocytes # (A) 0.3 k/uL (0-1.0); Monocytes % (A) 4 %; Neutrophils # (A) 5.8 k/uL (1.3-7.7); Neutrophils % (A) 69 %; Platelet Count 218 k/uL (150-450); RBC 3.86 m/uL (3.80-5.40); RDW 13.2 % (11.5-15.5); WBC 8.4 k/uL (3.8-10.6)
--- NOTE | 2019-04-22 10:54 | P.PN ---
Subjective Progress Note Date: 04/22/19 Principal diagnosis: Blood per rectum Patient was seen and examined. No acute events overnight. Currently getting GoLYTELY prep. She denies any blood in her stool. She denies any chest pain, shortness of breath or palpitations. Objective - Vital Signs Vital signs: Vital Signs Temp 97.4 F L 04/22/19 04:51 Pulse 72 04/22/19 08:52 Resp 16 04/22/19 04:51 BP 153/81 04/22/19 04:51 Pulse Ox 96 04/22/19 04:51 Intake & Output 04/21/19 04/22/19 04/22/19 18:59 06:59 18:59 Intake Total 200 Balance 200 Weight 55.338 kg Intake: Oral 200 Other: Voiding Method Toilet Toilet # Voids 1 3 # Bowel Movements 3 - Exam General: [non toxic], [no distress], [appears at stated age] Derm: [warm], [dry] Head: [atraumatic], [normocephalic], [symmetric] Eyes: [EOMI], [no lid lag], [anicteric sclera] Mouth: [no lip lesion], [mucus membranes moist] Cardiovascular: [S1S2 reg], [no murmur], [positive posterior tibial pulse bilateral], Lungs: [CTA bilateral], [no rhonchi, no rales] , [no accessory muscle use] Abdominal: [soft], [ nontender to palpation], [no guarding], [no appreciable organomegaly] Ext: [no gross muscle atrophy], [no edema], [no contractures] Neuro: [ CN II-XI grossly intact], [no focal neuro deficits] Psych: [Alert], [oriented], [appropriate affect] - Labs CBC & Chem 7: 04/22/19 07:59 04/21/19 19:31 Labs: Abnormal Lab Results - Last 24 Hours (Table) 04/22/19 Range/Units 07:59 MCV 102.0 H (80.0-100.0) fL Assessment and Plan Assessment: Assessment and plan Lower GI bleed Metabolic alkalosis Elevated BUN Atrial fibrillation COPD Hypertension Dyslipidemia FOBT positive. Hemoglobin 13.3-12.9. Painless, likely internal hemorrhoids with known history of AV malformation. Plans: Protonix 40 mg by mouth daily. Zofran as needed for nausea or vomiting. Clear liquid diet and advance as tolerated. Repeat CBC tomorrow morning. Hold Pradaxa. Follow general surgery and GI consultation. HCO3 of 36. Patient has had no vomiting. Unknown significance. Plans: Repeat BMP tomorrow morning. BUN 25. Likely due to dehydration. Plans: Encourage hydration by mouth. Repeat BMP tomorrow morning. Plans: Continue beta bette. Continue verapamil. Hold Pradaxa due to GI bleed. Plans: Albuterol neb as needed for shortness of breath and wheezing. BP 153/81. Plans: Continue lisinopril, Nadolol, verapamil and hydrochlorothi azide. Monitor vitals, adjust medications as necessary. Plans: Resume pravastatin. [Undergoing GoLYTELY prep. Plans for colonoscopy either today or tomorrow. She is pending clinical improvement. Likely DC in 1-2 days.]
--- NOTE | 2019-04-22 15:25 | P.PN ---
Subjective Progress Note Date: 04/22/19 CHIEF COMPLAINT: GI bleed HISTORY OF PRESENT ILLNESS: The patient is a 74-year-old female with recurrent GI bleeds. She is on anticoagulant Pradaxa with last dose on Saturday. She has history of AV malformation of the rectum. She is on a bowel prep. She has history of severe constipation often needing 2 days of colonoscopy prep. ROS: No reports of nausea and vomiting. Has bowel movements still brown. No fevers or chills. No new chest pain. No productive sputum PHYSICAL EXAM: VITAL SIGNS: Reviewed CONSTITUTIONAL: Well developed and in no acute distress. EYES: Conjuctivae without sclera icterus. Extraocular movements grossly intact. HEAD, EARS, NOSE, THROAT: Moist buccal mucosa. Head is atraumatic, normocephalic. Hears conversational speech. No nasal drainage. NECK: Supple. No thyroidomegaly. RESPIRATORY: Non-labored respirations and equal bilateral excursions. CARDIOVASCULAR: Palpable 2+ radial pulses. ABDOMEN: Soft. No peritonitis. MUSCULOSKELETAL: No gross deformity of the lower extremities noted. No clubbing. No cyanosis. SKIN: Good skin turgor. Well perfused. NEUROLOGIC: Cranial nerves I through XII grossly intact. No focal or lateralizing signs. PSYCH: Appropriate affect. Alert and oriented to person, place and time. CLINICAL LABS: White blood cell count normal ASSESSMENT: 1. GI bleed 2. Chronic anticoagulant use 3. Atrial fibrillation 4. AV malformation 5. Chronic constipation PLAN: 1. She is on anticoagulant Pradaxa. Will need at least 3 days off Pradaxa prior to colonoscopy. 2. She has pre-existing history of severe constipation. We'll need at least 2 days for a bowel prep for today into tomorrow, 4000mL prep 3. Continue clear liquid diet 4. Colonoscopy for Saturday for ablation of AV of the colon. Objective - Vital Signs Vital signs: Vital Signs Temp 97.4 F L 04/22/19 04:51 Pulse 72 04/22/19 08:52 Resp 16 04/22/19 04:51 BP 153/81 04/22/19 04:51 Pulse Ox 96 04/22/19 04:51 Intake & Output 04/21/19 04/22/19 04/22/19 18:59 06:59 18:59 Intake Total 200 Balance 200 Weight 55.338 kg Intake: Oral 200 Other: Voiding Method Toilet Toilet # Voids 1 3 # Bowel Movements 3 - Labs CBC & Chem 7: 04/22/19 07:59 04/21/19 19:31 Labs: Abnormal Lab Results - Last 24 Hours (Table) 04/22/19 Range/Units 07:59 MCV 102.0 H (80.0-100.0) fL Assessment and Plan (1) Anticoagulant adverse reaction Current Visit: Yes Status: Acute Code(s): T45.515A - ADVERSE EFFECT OF ANTICOAGULANTS, INITIAL ENCOUNTER SNOMED Code(s): 878133876 (2) AV malformation of gastrointestinal tract Current Visit: Yes Status: Acute Code(s): K55.20 - ANGIODYSPLASIA OF COLON WITHOUT HEMORRHAGE SNOMED Code(s): 074804399 (3) AVM (arteriovenous malformation) of colon with hemorrhage Current Visit: Yes Status: Acute Code(s): K55.21 - ANGIODYSPLASIA OF COLON WITH HEMORRHAGE SNOMED Code(s): 431680142 (4) Rectal bleeding Current Visit: Yes Status: Acute Code(s): K62.5 - HEMORRHAGE OF ANUS AND RECTUM SNOMED Code(s): 44439617 (5) Chronic constipation Current Visit: No Status: Chronic Code(s): K59.09 - OTHER CONSTIPATION SNOMED Code(s): 026403078
[2019-04-22] MEDS: LATANOPROST 0.005% OPHTH DROPS 2.5 ML BTL BOTH EYES SCH (22:12)
[2019-04-23] MEDS: LISINOPRIL 10 MG TAB PO SCH ×3 (00:17→21:35)
[2019-04-23] MEDS: SODIUM CHLORIDE 0.9% 1,000 ML IV SCH ×2 (04:46→14:24)
[2019-04-23] MEDS: ALBUTEROL NEBULIZED 2.5 MG/3 ML INHALATION SCH ×3 (07:28→21:23)
[2019-04-23] MEDS: SYMBICORT 160-4.5 MCG INHALER INHALATION SCH ×2 (07:29→21:23)
[2019-04-23 07:50] LABS: Basophils % (A) 1 %; Eosinophils # (A) 0.3 k/uL (0-0.7); Eosinophils % (A) 6 %; HCT 36.1 % (34.0-46.0); HGB 11.8 gm/dL (11.4-16.0); Lymphocytes # (A) 1.6 k/uL (1.0-4.8); Lymphocytes % (A) 28 %; MCH 33.2 pg (25.0-35.0); MCHC 32.9 g/dL (31.0-37.0); Mean Platelet Volume 8.2; Monocytes # (A) 0.4 k/uL (0-1.0); Monocytes % (A) 8 %; Neutrophils # (A) 3.1 k/uL (1.3-7.7); Neutrophils % (A) 54 %; Platelet Count 209 k/uL (150-450); RBC 3.57 m/uL (3.80-5.40); RDW 13.2 % (11.5-15.5); WBC 5.7 k/uL (3.8-10.6)
[2019-04-23] MEDS: POTASSIUM CHLORIDE ER 20 MEQ TAB.ER PO SCH ×2 (08:05→21:35)
[2019-04-23] MEDS: PANTOPRAZOLE 40 MG TABLET PO SCH (08:05)
[2019-04-23] MEDS: PRAVASTATIN SODIUM 40 MG TAB PO SCH (08:05)
[2019-04-23] MEDS: HYDROCHLOROTHIAZIDE 12.5 MG CAP PO SCH (08:05)
[2019-04-23] MEDS: VERAPAMIL SR 240 MG TABLET.ER PO SCH ×2 (08:05→21:35)
[2019-04-23] MEDS: NADOLOL 20 MG TAB PO SCH (08:06)
[2019-04-23] MEDS: HYDROcodone/APAP 7.5-325MG 1 EACH TAB PO PRN ×2 (08:10→21:45)
[2019-04-23] MEDS: BACLOFEN 10 MG TAB PO PRN ×2 (08:15→21:44)
--- NOTE | 2019-04-23 09:15 | P.PN ---
Subjective Progress Note Date: 04/23/19 Principal diagnosis: Blood per rectum Patient was seen and examined. No acute events overnight. Currently getting GoLYTELY prep. She denies any blood in her stool. She denies any chest pain, shortness of breath or palpitations. Objective - Vital Signs Vital signs: Vital Signs Temp 97.4 F L 04/23/19 04:57 Pulse 76 04/23/19 07:46 Resp 16 04/23/19 04:57 BP 119/68 04/23/19 04:57 Pulse Ox 96 04/23/19 07:31 Intake & Output 04/22/19 04/23/19 04/23/19 18:59 06:59 18:59 Intake Total 200 Output Total 900 Balance -700 Intake: Oral 200 Output: Urine 900 Other: Voiding Method Toilet Toilet # Voids 3 2 # Bowel Movements 3 1 - Exam General: [non toxic], [no distress], [appears at stated age] Derm: [warm], [dry] Head: [atraumatic], [normocephalic], [symmetric] Eyes: [EOMI], [no lid lag], [anicteric sclera] Mouth: [no lip lesion], [mucus membranes moist] Cardiovascular: [S1S2 reg], [no murmur], [positive posterior tibial pulse bilateral], Lungs: [CTA bilateral], [no rhonchi, no rales] , [no accessory muscle use] Abdominal: [soft], [ nontender to palpation], [no guarding], [no appreciable organomegaly] Ext: [no gross muscle atrophy], [no edema], [no contractures] Neuro: [ CN II-XI grossly intact], [no focal neuro deficits] Psych: [Alert], [oriented], [appropriate affect] - Labs CBC & Chem 7: 04/23/19 07:20 04/21/19 19:31 Labs: Abnormal Lab Results - Last 24 Hours (Table) 04/23/19 Range/Units 07:20 RBC 3.57 L (3.80-5.40) m/uL MCV 101.0 H (80.0-100.0) fL Assessment and Plan Assessment: Assessment and plan Lower GI bleed Metabolic alkalosis Elevated BUN Atrial fibrillation COPD Hypertension Dyslipidemia FOBT positive. Hemoglobin 13.3-12.9-11.8. Painless, likely internal hemorrhoids with known history of AV malformation. Plans: Protonix 40 mg by mouth daily. Zofran as needed for nausea or vomiting. Clear liquid diet and advance as tolerated. Repeat CBC tomorrow morning. Hold Pradaxa. Follow general surgery and GI consultation. HCO3 of 36. Patient has had no vomiting. Unknown significance. Plans: Repeat BMP tomorrow morning. BUN 25. Likely due to dehydration. Plans: Encourage hydration by mouth. Repeat BMP tomorrow morning. Plans: Continue beta bette. Continue verapamil. Hold Pradaxa due to GI bleed. Plans: Albuterol neb as needed for shortness of breath and wheezing. BP 119/68. Plans: Continue lisinopril, Nadolol, verapamil and hydrochlorothiazide. Monitor vitals, adjust medications as necessary. Plans: Resume pravastatin. [Undergoing GoLYTELY prep. Plans for colonoscopy tomorrow. Likely DC in 1-2 days.]
--- NOTE | 2019-04-23 14:07 | P.PN ---
<Angelina Newman - Last Filed: 04/23/19 14:00> Subjective Progress Note Date: 04/23/19 CHIEF COMPLAINT: GI bleed HISTORY OF PRESENT ILLNESS: Patient examined at the bedside. She is currently drinking bowel prep. She reports yellow liquid stools. Denies abdominal pain. Denies nausea or vomiting. PHYSICAL EXAM: VITAL SIGNS: Reviewed CONSTITUTIONAL: Well developed and in no acute distress. EYES: Conjuctivae without sclera icterus. Extraocular movements grossly intact. HEAD, EARS, NOSE, THROAT: Moist buccal mucosa. Head is atraumatic, normocephalic . Hears conversational speech. No nasal drainage. NECK: Supple. No thyroidomegaly. RESPIRATORY: Non-labored respirations and equal bilateral excursions. CARDIOVASCULAR: Palpable 2+ radial pulses. ABDOMEN: Soft. Nontender. Nondistended. MUSCULOSKELETAL: No gross deformity of the lower extremities noted. No clubbing. No cyanosis. SKIN: Good skin turgor. Well perfused. NEUROLOGIC: Cranial nerves I through XII grossly intact. No focal or lateralizing signs. PSYCH: Appropriate affect. Alert and oriented to person, place and time. ASSESSMENT: 1. GI bleed 2. Chronic anticoagulant use 3. Atrial fibrillation 4. AV malformation 5. Chronic constipation PLAN: -Continue to hold Pradaxa -Continue bowel prep -Clear liquid diet -NPO at midnight -Colonoscopy tomorrow for ablation of AV malformation of the colon Nurse practitioner note has been reviewed by physician. Signing provider agrees with the documented findings, assessment, and plan of care. Objective - Vital Signs Vital signs: Vital Signs Temp 97.6 F 04/23/19 12:02 Pulse 70 04/23/19 13:10 Resp 20 04/23/19 12:02 BP 185/74 04/23/19 12:02 Pulse Ox 96 04/23/19 12:02 Intake & Output 04/22/19 04/23/19 04/23/19 18:59 06:59 18:59 Intake Total 200 1070 Output Total 900 Balance -700 1070 Intake: Oral 200 1070 Output: Urine 900 Other: Voiding Method Toilet Toilet # Voids 3 2 3 # Bowel Movements 3 1 1 - Labs CBC & Chem 7: 04/23/19 07:20 04/21/19 19:31 Labs: Abnormal Lab Results - Last 24 Hours (Table) 04/23/19 Range/Units 07:20 RBC 3.57 L (3.80-5.40) m/uL MCV 101.0 H (80.0-100.0) fL <Anyi Dan N - Last Filed: 04/23/19 23:19> Subjective Patient has history of severe constipation. She has done well with 2-day bowel prep. Recommend colonoscopy for therapeutic treatment. Objective - Vital Signs Vital signs: Vital Signs Temp 97.4 F L 04/23/19 21:00 Pulse 74 04/23/19 21:23 Resp 18 04/23/19 21:00 BP 175/80 04/23/19 21:00 Pulse Ox 96 04/23/19 21:23 Intake & Output 04/23/19 04/23/19 04/24/19 06:59 18:59 06:59 Intake Total 1550 500 Balance 1550 500 Intake: Oral 1550 500 Other: Voiding Method Toilet Bedside Commode # Voids 2 3 0 # Bowel Movements 1 2 2 - Labs CBC & Chem 7: 04/23/19 07:20 04/23/19 20:51 Labs: Abnormal Lab Results - Last 24 Hours (Table) 04/23/19 04/23/19 Range/Units 07:20 20:51 RBC 3.57 L (3.80-5.40) m/uL MCV 101.0 H (80.0-100.0) fL BUN 6 L (7-17) mg/dL Assessment and Plan (1) Anticoagulant adverse reaction Current Visit: Yes Status: Acute Code(s): T45.515A - ADVERSE EFFECT OF ANTICOAGULANTS, INITIAL ENCOUNTER SNOMED Code(s): 078574429 (2) AV malformation of gastrointestinal tract Current Visit: Yes Status: Acute Code(s): K55.20 - ANGIODYSPLASIA OF COLON WITHOUT HEMORRHAGE SNOMED Code(s): 267662011 (3) AVM (arteriovenous malformation) of colon with hemorrhage Current Visit: Yes Status: Acute Code(s): K55.21 - ANGIODYSPLASIA OF COLON WITH HEMORRHAGE SNOMED Code(s): 829417842 (4) Rectal bleeding Current Visit: Yes Status: Acute Code(s): K62.5 - HEMORRHAGE OF ANUS AND RECTUM SNOMED Code(s): 22129995 (5) Chronic constipation Current Visit: No Status: Chronic Code(s): K59.09 - OTHER CONSTIPATION SNOMED Code(s): 396831139
[2019-04-23 21:35] LABS: African American GFR (CKD) >90 (>60 ml/min/1.73 sqM); Anion Gap 6 mmol/L; Blood Urea Nitrogen 6 mg/dL (7-17); Calcium 9.1 mg/dL (8.4-10.2); Carbon Dioxide 28 mmol/L (22-30); Chloride 107 mmol/L (98-107); Glucose 80 mg/dL (74-99); Non-African American GFR(CKD) 88 (>60 ml/min/1.73 sqM); Potassium 3.8 mmol/L (3.5-5.1); Sodium 141 mmol/L (137-145)
[2019-04-23] MEDS: LATANOPROST 0.005% OPHTH DROPS 2.5 ML BTL BOTH EYES SCH (21:38)
[2019-04-24] MEDS: SODIUM CHLORIDE 0.9% 1,000 ML IV SCH ×2 (04:03→13:52)
[2019-04-24] MEDS: ALBUTEROL NEBULIZED 2.5 MG/3 ML INHALATION SCH ×2 (06:56→12:14)
[2019-04-24] MEDS: SYMBICORT 160-4.5 MCG INHALER INHALATION SCH (06:56)
[2019-04-24] MEDS: VERAPAMIL SR 240 MG TABLET.ER PO SCH (07:40)
[2019-04-24] MEDS: LISINOPRIL 10 MG TAB PO SCH (07:40)
[2019-04-24] MEDS: NADOLOL 20 MG TAB PO SCH (07:53)
[2019-04-24] MEDS: PANTOPRAZOLE 40 MG TABLET PO SCH (08:50)
--- NOTE | 2019-04-24 09:17 | P.DS ---
Providers Date of admission: 04/23/19 09:20 Expected date of discharge: 04/24/19 Attending physician: Fernando Guzman MD Consults: 04/21/19 10:40 Consult Physician Routine Consulting Provider: Anyi Dan Consult Reason/Comments: patient known to her and requests, rectal bleeding/colonoscopy Do you want consulting provider notified?: Yes Primary care physician: [facility] Course: 73-year-old female with PMH of atrial fibrillation on Pradaxa, COPD, hypertension, hyperlipidemia results the ED for bright red blood per rectum. Patient was recently discharged in February for bright red blood per rectum that spontaneously resolved. Patient states that she had been doing generally well since her discharge last month. She woke up yesterday morning around 4 AM with bright red blood per rectum. In the ED, her vital signs are stable. CBC was unremarkable. CMP showed a PTT of 31.9. CMP showed potassium of 2.9, bicarbonate 36, BUN 25. FOBT was positive. Patient is admitted for GI bleed, surgery on consult. Her hemoglobin remained stable and was 11.8 at the time of discharge. General surgery was consulted and recommended holding Pradaxa. General surgery recommend a colonoscopy after GoLYTELY prep. Colonoscopy was pending at the time of this report. Patient was seen and examined. No acute events overnight. Patient reports being able to finish her GoLYTELY prep. She denies any abdominal pain. States that she is hungry. No abdominal pain. No blood in stool. No chest pain, shortness of breath or palpitations. General: [non toxic], [no distress], [appears at stated age] Derm: [warm], [dry] Head: [atraumatic], [normocephalic], [symmetric] Eyes: [EOMI], [no lid lag], [anicteric sclera] Mouth: [no lip lesion], [mucus membranes moist] Cardiovascular: [S1S2 reg], [no murmur], [positive posterior tibial pulse bilateral], Lungs: [CTA bilateral], [no rhonchi, no rales] , [no accessory muscle use] Abdominal: [soft], [ nontender to palpation], [no guarding], [no appreciable organomegaly] Ext: [no gross muscle atrophy], [no edema], [no contractures] Neuro: [ CN II-XI grossly intact], [no focal neuro deficits] Psych: [Alert], [oriented], [appropriate affect] Assessment and plan Lower GI bleed Atrial fibrillation COPD Hypertension Dyslipidemia FOBT positive. Hemoglobin 13.3-12.9-11.8. Painless, likely internal hemorrhoids with known history of AV malformation. Plans: Protonix 40 mg by mouth daily. Zofran as needed for nausea or vomiting. Clear liquid diet and advance as tolerated. Repeat CBC tomorrow morning. Hold Pradaxa. Colonoscopy today. Plans: Continue beta bette. Continue verapamil. Hold Pradaxa due to GI bleed. Plans: Albuterol neb as needed for shortness of breath and wheezing. BP 147/77. Plans: Continue lisinopril, Nadolol, verapamil and hydrochlorothiazide. Monitor vitals, adjust medications as necessary. Plans: Resume pravastatin. [Colonoscopy today. DC pending results.] Procedures: Colonoscopy Patient Condition at Discharge: Good Plan - Discharge Summary Discharge Rx Participant: No New Discharge Prescriptions: New Hydrocortisone Pr Cream [Proctosol-Hc 2.5%] 1 applic RECTAL BID PRN #1 tub PRN Reason: RECTAL PAIN Continue Pravastatin Sodium [Pravachol] 40 mg PO DAILY Hydrocodone/Acetaminophen [[place] 7.5-325] 1 tab PO QID PRN PRN Reason: Pain Baclofen [Lioresal] 10 mg PO TID PRN PRN Reason: Muscle Spasm Albuterol Inhaler [Ventolin Hfa Inhaler] 2 puff INHALATION RT-QID PRN PRN Reason: Shortness Of Breath Dabigatran [Pradaxa] 150 mg PO BID Moexipril [Univasc] 7.5 mg PO BID Verapamil HCl [Verapamil ER] 240 mg PO BID Nadolol 40 mg PO DAILY Latanoprost [Xalatan 0.005%] 1 drop BOTH EYES HS Omeprazole [PriLOSEC] 20 mg PO DAILY Budesonide/Formoterol Fumarate [Symbicort 160-4.5 Mcg Inhaler] 2 puff INHALATION RT-BID Albuterol Nebulized [Ventolin Nebulized] 2.5 mg INHALATION RT-TID Hydrochlorothiazide 12.5 mg PO DAILY Discharge Medication List Albuterol Inhaler [Ventolin Hfa Inhaler] 2 puff INHALATION RT-QID PRN 07/20/15 [History] Baclofen [Lioresal] 10 mg PO TID PRN 07/20/15 [History] Dabigatran [Pradaxa] 150 mg PO BID 07/20/15 [History] Hydrocodone/Acetaminophen [[place] 7.5-325] 1 tab PO QID PRN 07/20/15 [History] Moexipril [Univasc] 7.5 mg PO BID 07/20/15 [History] Pravastatin Sodium [Pravachol] 40 mg PO DAILY 07/20/15 [History] Verapamil HCl [Verapamil ER] 240 mg PO BID 04/11/16 [History] Latanoprost [Xalatan 0.005%] 1 drop BOTH EYES HS 10/15/16 [History] Nadolol 40 mg PO DAILY 10/15/16 [History] Omeprazole [PriLOSEC] 20 mg PO DAILY 01/16/17 [History] Albuterol Nebulized [Ventolin Nebulized] 2.5 mg INHALATION RT-TID 08/11/17 [History] Budesonide/Formoterol Fumarate [Symbicort 160-4.5 Mcg Inhaler] 2 puff INHALATION RT-BID 08/11/17 [History] Hydrochlorothiazide 12.5 mg PO DAILY 03/14/19 [History] Hydrocortisone Pr Cream [Proctosol-Hc 2.5%] 1 applic RECTAL BID PRN #1 tub 04/24/19 [Rx] Follow up Appointment(s)/Referral(s): Faizan Estrella MD [Primary Care Provider] - 1-2 days Ambulatory/Diagnostic Orders: Complete Blood Count w/diff [LAB.AMB] Time Frame: 3 Days, Location: None Selected Patient Instructions/Handouts: Gastrointestinal Bleeding (ED) Discharge Disposition: HOME SELF-CARE
[2019-04-24] MEDS: PRAVASTATIN SODIUM 40 MG TAB PO SCH (10:43)
[2019-04-24] MEDS: POTASSIUM CHLORIDE ER 20 MEQ TAB.ER PO SCH (10:43)
[2019-04-24] MEDS: HYDROCHLOROTHIAZIDE 12.5 MG CAP PO SCH (10:43)
[2019-04-24] MEDS ORDERED: PROPOFOL 10 MG/ML 20 ML VIAL IV ONE (11:10)
[2019-04-24] MEDS ORDERED: IV FLUID CONTINUATION 700 ML IV ONE (11:13)
[2019-04-24 11:14] VITALS: BMI 23.0
--- NOTE | 2019-04-24 11:55 | P.PCN ---
Date of Procedure: 04/24/19 Description of Procedure: PREOPERATIVE DIAGNOSIS: Gastrointestinal hemorrhage Acute blood loss anemia Rectal bleeding History of arteriovenous venous malformation History of colon polyps Chronic anticoagulant use Chronic constipation POSTOPERATIVE DIAGNOSIS: Gastrointestinal hemorrhage Chronic anticoagulant use Acute blood loss anemia Rectal bleeding due to arteriovenous venous malformation, sigmoid colon Splenic flexure adenoma Internal hemorrhoids, grade 3 External hemorrhoids, grade 3 OPERATION: Colonoscopy to the ileocecal valve and appendiceal orifice. Colonoscopy with ablation of arteriovenous malformation using ERBIE for control of bleeding Colonoscopy with hot snare polypectomy SURGEON: Anyi Dan MD. ANESTHESIA: MAC. INDICATIONS: The patient is an 74-year-old female who presents with recurrent rectal bleeding. She has history of arteriovenous malformations. Benefits and risks were described and informed consent was obtained. DESCRIPTION OF PROCEDURE: The patient had undergone NuLytely prep. She had been brought into the operating room and laid in the left lateral decubitus position. After adequate intravenous sedation, the rectum was examined with 2% lidocaine jelly. External hemorrhoids were encountered Without active bleeding. The rectal tone was withi n normal limits. No lesions were palpated in the rectal vault. An Olympus colonoscope was advanced until the ileocecal valve was viewed. The prep was fair. No sigmoid diverticulosis was encountered. Hepatic flexure adenoma 8 mm was snare polypectomy. No evidence of focal colitis was found. arteriovenous malformation 6 mm was found at the sigmoid colon, 30 cm from the anal verge and ablated using ERBIE for signs of recent bleeding. Retroflexion of the scope demonstrated grade 3 internal hemorrhoids without active bleeding but with inflammation. The colon was desufflated. The patient had tolerated the procedure well. Withdrawal time was over 6 minutes. FINDINGS: Aronchick preparation quality scale 2 (1-5)Despite 2 day prep Internal hemorrhoids, grade 3 with recent inflammation and bleeding External hemorrhoids, grade 3. Arteriovenous malformation at 30 cm from the anal verge, sigmoid colon and ablated for control of bleeding No sigmoid diverticulosis Removal of 1 polyp: - Snare polypectomy splenic flexure, 8 mm tubulovillous adenoma polyp. No focal colitis. RECOMMENDATIONS: 1. Hold anticoagulation for history of recurrent GI bleeds and history of arteriovenous malformations 2. Repeat lower endoscopy within 2 years, 2021, for high-risk colon adenomas
[2019-04-24 13:11] VITALS: RESP 20; TEMP 98
[2019-04-24 13:12] VITALS: BP 159/76; PULSE 71
--- NOTE | 2019-04-29 10:44 | CDI ---
Documentation Clarification Form Date: 04/29/19 From: Margoth Nieves Phone: If you have a question about this query, please contact Manuela Leal, [employer] Associate at [phone] between 8am and 5pm. Admit Date: 04/23/19 Discharge Date: 04/24/19 Patient Name: Nancy Naqvi Visit Number: [id number] ATTENTION: The Clinical Documentation Specialists (CDI) and [facility] Coding Staff appreciate your assistance in clarifying documentation. Please respond to the clarification below the line at the bottom and electronically sign. The CDI & [facility] Coding staff will review the response and follow-up if needed. Please note: Queries are made part of the Legal Health Record. If you have any questions, please contact the author of this message via ITS. Dear Dr. Mateo Proctor, Takes Pradaxa for atrial Fibrillation is documented in the ED Note, consult, H&P and PNs. History/Risk Factors: angiodysplasia of colon w hemorrhage, ABLA, alkalosis, COPD, HTN, dehydration, GERD, hyperlipidemia, OA EKG/telemetry: sinus rhythm w 1st degree AV block Treatment: Pradaxa In your professional opinion, can you please clarify the type of Atrial Fibrillation, if known? Chronic Permanent Paroxysmal Persistent, longstanding Persistent, other Persistent, permanent Other, please specify Unable to determine paroxysmal MTDD
== END 2019-04-24 14:55 | disposition home or self-care (01) | DRG 378 ==
LOC: SUPCPDRO 04:30 → EC 04:30 → 6NMEDSUR 07:05 → OBSVTOIN 04-23 09:20
PROVIDERS: ADMIT Internal Medicine; ATTEND Internal Medicine
PROC: 0W3P8ZZ Control Bleeding in Gastrointestinal Tract, Via Natural or Artificial Opening Endoscopic (ICD-10-PCS; 2019-04-24)
PROC: 0DBL8ZX Excision of Transverse Colon, Via Natural or Artificial Opening Endoscopic, Diagnostic (ICD-10-PCS; principal; 2019-04-24 09:45)
DX: K55.21 Angiodysplasia of colon with hemorrhage (principal); D62 Acute posthemorrhagic anemia; E87.3 Alkalosis; I48.0 Paroxysmal atrial fibrillation; D12.3 Benign neoplasm of transverse colon; K64.8 Other hemorrhoids; K59.09 Other constipation; K64.4 Residual hemorrhoidal skin tags; E87.6 Hypokalemia; J44.9 Chronic obstructive pulmonary disease, unspecified; I10 Essential (primary) hypertension; E86.0 Dehydration; K21.9 Gastro-esophageal reflux disease without esophagitis; E78.5 Hyperlipidemia, unspecified; M19.90 Unspecified osteoarthritis, unspecified site; I83.90 Asymptomatic varicose veins of unspecified lower extremity; R94.4 Abnormal results of kidney function studies; H40.9 Unspecified glaucoma; Z86.010 Personal history of colon polyps; Z79.01 Long term (current) use of anticoagulants; Z79.51 Long term (current) use of inhaled steroids; Z79.899 Other long term (current) drug therapy; Z90.710 Acquired absence of both cervix and uterus; Z87.11 Personal history of peptic ulcer disease; Z87.01 Personal history of pneumonia (recurrent); Z87.19 Personal history of other diseases of the digestive system; Z98.42 Cataract extraction status, left eye; Z98.41 Cataract extraction status, right eye; Z98.51 Tubal ligation status; Z98.890 Other specified postprocedural states; Z82.5 Family history of asthma and other chronic lower respiratory diseases; Z82.61 Family history of arthritis; Z83.79 Family history of other diseases of the digestive system
CPT/HCPCS: 36415; 45385; 80048; 80053; 82272; 84132; 84484; 85025; 85610; 85730; 86850; 86900; 86901; 88305; 93005; 94640; 94760; 96365; 96366; 99285

== ENCOUNTER 2019-06-18 14:04 | Inpatient (IN) | payer MEDICARE, OTHER ==
[2019-06-18] MEDS ORDERED: SODIUM CHLORIDE 0.9% 1,000 ML IV STA (14:11)
[2019-06-18] MEDS ORDERED: DEXAMETHASONE SOD PHOSPHATE 10 MG/ML 1 ML VIAL IV STA (14:24)
[2019-06-18] MEDS ORDERED: IPRATROPIUM-ALBUTEROL 3 ML NEB INHALATION STA (14:24)
--- NOTE | 2019-06-18 14:27 | ED ---
General Adult HPI - General Chief complaint: Shortness of Breath Stated complaint: Flu symptoms Time Seen by Provider: 06/18/19 14:05 Source: patient Mode of arrival: ambulatory Limitations: no limitations - History of Present Illness Initial comments: Dictation was produced using Goshi dictation software. please excuse any grammatical, word or spelling errors. Chief Complaint: 74-year-old female with past medical history of A. fib, COPD, dyslipidemia presents with shortness of breath. History of Present Illness: 74-year-old female she states that over the last 3-4 days she's been having URI type symptoms states that she felt like her symptoms were going to improve and they were. This morning she woke up and felt short of breath. She called EMS and was brought to the emergency department. Patient denies any fevers. She does report cough. She states her cough is productive of clear sputum. She states that this is normal for her considering her underlying COPD. Patient states she has a baseline wheeze. Patient does not feel short of breath at rest. She states that during exertion. Patient has no pain complaints. She does complain of mild sore throat and some persistent rhinorrhea. The ROS documented in this emergency department record has been reviewed and confirmed by me. Those systems with pertinent positive or negative responses have been documented in the HPI. All other systems are other negative and/or noncontributory. PHYSICAL EXAM: General Impression: Alert and oriented x3, not in acute distress HEENT: Normocephalic atraumatic, extra-ocular movements intact, pupils equal and reactive to light bilaterally, mucous membranes moist. Cardiovascular: Heart regular rate and rhythm, S1&S2 audible, no murmurs, rubs or gallops Chest: Mild end expiratory wheeze Abdomen: Bowel sounds present, abdomen soft, non-tender, non-distended, no organomegaly Musculoskeletal: Pulses present and equal in all extremities, no peripheral edema Motor: no focal deficits noted Neurological: CN II-XII grossly intact, no focal motor or sensory deficits noted Skin: Intact with no visualized rashes Psych: Normal affect and mood ED course: 74-year-old female presents with chief complaint of shortness of shea th. She recently suffered URI type symptoms. Vital signs upon arrival are within acceptable limits. Laboratory evaluation obtained. No leukocytosis. Metabolic panel is unremarkable. Cardiac enzymes negative. Prematurity peptide is negative. Influenza B is positive. X-ray obtained showing infiltrates to the right upper and lower lung. Blood culture sent. Given patient's risk factors she is administered antibiotics. However patient appears comfortable she does not appear to be short of breath at this time. Pneumonia is less likely however I believe given her risk factor should benefit from treatment for community acquired pneumonia. Patient lives at home alone by herself and does not feel comfortable being discharged. Discussed patient case Dr. Pelaez is willing to accept patients care. Patient was also given Tamiflu. EKG interpretation: Ventricular rate 60, sinus rhythm, MN interval 204, QRS 94, QTC 491. No MN prolongation, no QTC prolongation, no ST or T-wave changes noted. EKG compared to 04/21/2019 showing no changes. Overall, this EKG is unremarkable - Related Data Home Medications Medication Instructions Recorded Confirmed Albuterol Inhaler [Ventolin Hfa 2 puff INHALATION RT-QID PRN 07/20/15 04/21/19 Inhaler] Baclofen [Lioresal] 10 mg PO TID PRN 07/20/15 04/21/19 Dabigatran [Pradaxa] 150 mg PO BID 07/20/15 04/21/19 Hydrocodone/Acetaminophen [[place] 1 tab PO QID PRN 07/20/15 04/21/19 7.5-325] Moexipril [Univasc] 7.5 mg PO BID 07/20/15 04/21/19 Pravastatin Sodium [Pravachol] 40 mg PO DAILY 07/20/15 04/21/19 Verapamil HCl [Verapamil ER] 240 mg PO BID 04/11/16 04/21/19 Latanoprost [Xalatan 0.005%] 1 drop BOTH EYES HS 10/15/16 04/21/19 Nadolol 40 mg PO DAILY 10/15/16 04/21/19 Omeprazole [PriLOSEC] 20 mg PO DAILY 01/16/17 04/21/19 Albuterol Nebulized [Ventolin 2.5 mg INHALATION RT-TID 08/11/17 04/21/19 Nebulized] Budesonide/Formoterol Fumarate 2 puff INHALATION RT-BID 08/11/17 04/21/19 [Symbicort 160-4.5 Mcg Inhaler] Hydrochlorothiazide 12.5 mg PO DAILY 03/14/19 04/21/19 Previous Rx's Medication Instructions Recorded Hydrocortisone Pr Cream 1 applic RECTAL BID PRN #1 tub 04/24/19 [Proctosol-Hc 2.5%] Allergies Allergy/AdvReac Type Severity Reaction Status Date / Time No Known Allergies Allergy Verified 06/18/19 14:08 Review of Systems ROS Statement: Those systems with pertinent positive or pertinent negative responses have been documented in the HPI. ROS Other: All systems not noted in ROS Statement are negative. Past Medical History Past Medical History: Atrial Fibrillation, Asthma, COPD, GERD/Reflux, Hyperlipidemia, Hypertension, Osteoarthritis (OA), Pneumonia Additional Past Medical History / Comment(s): DJD, VARICOSE VEINS, BRONCHITIS, GLAUCOMA, stomach ULCER,DIVERTICULITIS,constipation History of Any Multi-Drug Resistant Organisms: None Reported Past Surgical History: Adenoidectomy, Appendectomy, Heart Catheterization, Hysterectomy, Tonsillectomy, Tubal Ligation Additional Past Surgical History / Comment(s): BILLY CATARACTS. Past Anesthesia/Blood Transfusion Reactions: No Reported Reaction Past Psychological History: No Psychological Hx Reported Smoking Status: Never smoker Past Alcohol Use History: None Reported Past Drug Use History: None Reported - Past Family History Father Family Medical History: COPD Additional Family Medical History / Comment(s): EMPHYSEMA Mother Family Medical History: Osteoarthritis (OA) Additional Family Medical History / Comment(s): EMPHYSEMA, BOWEL OBST RUCTION/COLOSTOMY General Exam Limitations: no limitations Course Vital Signs 06/18/19 06/18/19 06/18/19 14:08 14:37 14:45 Temperature 97.7 F Pulse Rate 66 61 62 Respiratory 18 18 Rate Blood Pressure 179/79 177/89 O2 Sat by Pulse 96 100 Oximetry 06/18/19 06/18/19 14:52 16:00 Temperature Pulse Rate 64 64 Respiratory 18 Rate Blood Pressure 162/89 O2 Sat by Pulse 100 Oximetry Medical Decision Making - Lab Data Result diagrams: 06/18/19 14:21 06/18/19 14:21 Lab Results 06/18/19 06/18/19 06/18/19 Range/Units 14:21 14:21 14:21 WBC 7.5 (3.8-10.6) k/uL RBC 4.92 (3.80-5.40) m/uL Hgb 16.1 H D (11.4-16.0) gm/dL Hct 49.1 H (34.0-46.0) % MCV 99.9 (80.0-100.0) fL MCH 32.8 (25.0-35.0) pg MCHC 32.8 (31.0-37.0) g/dL RDW 13.0 (11.5-15.5) % Plt Count 183 (150-450) k/uL Neutrophils % (Manual) 61 % Lymphocytes % (Manual) 24 % Monocytes % (Manual) 15 % Neutrophils # (Manual) 4.58 (1.3-7.7) k/uL Lymphocytes # (Manual) 1.80 (1.0-4.8) k/uL Monocytes # (Manual) 1.13 H (0-1.0) k/uL Nucleated RBCs 0 (0-0) /100 WBC Manual Slide Review Performed Large Platelets Present Polychromasia Present Sodium 138 (137-145) mmol/L Potassium 3.7 (3.5-5.1) mmol/L Chloride 94 L (98-107) mmol/L Carbon Dioxide 35 H (22-30) mmol/L Anion Gap 9 mmol/L BUN 38 H (7-17) mg/dL Creatinine 0.73 (0.52-1.04) mg/dL Est GFR (CKD-EPI)AfAm >90 (>60 ml/min/1.73 sqM) Est GFR (CKD-EPI)NonAf 81 (>60 ml/min/1.73 sqM) Glucose 108 H (74-99) mg/dL POC Glucose (mg/dL) (75-99) mg/dL POC Glu Sales Trainer ID Calcium 10.5 H (8.4-10.2) mg/dL Troponin I (0.000-0.034) ng/mL NT-Pro-B Natriuret Pep pg/mL Influenza Type A RNA Not Detected (Not Detectd) Influenza Type B (PCR) Detected H (Not Detectd) 06/18/19 06/18/19 06/18/19 Range/Units 14:21 14:21 16:20 WBC (3.8-10.6) k/uL RBC (3.80-5.40) m/uL Hgb (11.4-16.0) gm/dL Hct (34.0-46.0) % MCV (80.0-100.0) fL MCH (25.0-35.0) pg MCHC (31.0-37.0) g/dL RDW (11.5-15.5) % Plt Count (150-450) k/uL Neutrophils % (Manual) % Lymphocytes % (Manual) % Monocytes % (Manual) % Neutrophils # (Manual) (1.3-7.7) k/uL Lymphocytes # (Manual) (1.0-4.8) k/uL Monocytes # (Manual) (0-1.0) k/uL Nucleated RBCs (0-0) /100 WBC Manual Slide Review Large Platelets Polychromasia Sodium (137-145) mmol/L Potassium (3.5-5.1) mmol/L Chloride (98-107) mmol/L Carbon Dioxide (22-30) mmol/L Anion Gap mmol/L BUN (7-17) mg/dL Creatinine (0.52-1.04) mg/dL Est GFR (CKD-EPI)AfAm (>60 ml/min/1.73 sqM) Est GFR (CKD-EPI)NonAf (>60 ml/min/1.73 sqM) Glucose (74-99) mg/dL POC Glucose (mg/dL) 101 H (75-99) mg/dL POC Glu Sales Trainer ID Damaris Rodriguez Calcium (8.4-10.2) mg/dL Troponin I <0.012 (0.000-0.034) ng/mL NT-Pro-B Natriuret Pep 669 pg/mL Influenza Type A RNA (Not Detectd) Influenza Type B (PCR) (Not Detectd) Disposition Clinical Impression: Dyspnea, Influenza Disposition: ADMITTED IP TO THIS HOSP Condition: Fair Referrals: Faizan Estrella MD [Primary Care Provider] - 1-2 days Decision Time: 16:44
[2019-06-18 14:45] LABS: HCT 49.1 % (34.0-46.0); MCH 32.8 pg (25.0-35.0); MCHC 32.8 g/dL (31.0-37.0); MCV 99.9 fL (80.0-100.0); Mean Platelet Volume 9.4; Platelet Count 183 k/uL (150-450); RBC 4.92 m/uL (3.80-5.40); WBC 7.5 k/uL (3.8-10.6)
--- NOTE | 2019-06-18 14:49 | XR ---
EXAMINATION TYPE: XR chest 2V DATE OF EXAM: 06/18/2019 COMPARISON: Chest x-ray September 17, 2018. CT chest November 20, 2017. HISTORY: Shortness of breath cough and fever. TECHNIQUE: Frontal and lateral views of the chest are obtained. FINDINGS: Osseous structures are demineralized with S-shaped scoliosis. There is cardiomegaly with at herosclerotic thoracic aorta redemonstrated. There is some chronic parenchymal change with suggestion of some new faint opacities in the right upper and lower lung on frontal view less well-seen on late ral view. No pleural effusion or pneumothorax bilaterally. IMPRESSION: Chronic changes and cardiomegaly with prepped early acute infiltrates right upper and l ower lung. Consider progress study.
[2019-06-18 14:53] LABS: African American GFR (CKD) >90 (>60 ml/min/1.73 sqM); Anion Gap 9 mmol/L; Blood Urea Nitrogen 38 mg/dL (7-17); Calcium 10.5 mg/dL (8.4-10.2); Carbon Dioxide 35 mmol/L (22-30); Chloride 94 mmol/L (98-107); Glucose 108 mg/dL (74-99); Non-African American GFR(CKD) 81 (>60 ml/min/1.73 sqM); Sodium 138 mmol/L (137-145)
[2019-06-18 14:56] LABS: Potassium 3.7 mmol/L (3.5-5.1)
[2019-06-18] MEDS ORDERED: OSELTAMIVIR 75 MG CAP PO STA (14:58)
[2019-06-18 15:01] LABS: HGB 16.1 gm/dL (11.4-16.0)
[2019-06-18 15:57] LABS: Monocytes # (M) 1.13 k/uL (0-1.0); Neutrophils # (M) 4.58 k/uL (1.3-7.7); Neutrophils % (M) 61 %; Nucleated Red Blood Cells 0 /100 WBC (0-0); Polychromasia Present; Total Cells Counted 100
[2019-06-18 15:58] LABS: Large Platelets Present
[2019-06-18] MEDS ORDERED: AZITHROMYCIN 500 MG in SODIUM CHLORIDE 0.9% 250 ML IVPB STA (16:12)
[2019-06-18] MEDS ORDERED: cefTRIAXone IN SWFI 1,000 MG/10 ML SYRINGE IVP STA (16:12)
[2019-06-18 16:22] LABS: Glucose,Whole Blood 101 mg/dL (75-99)
[2019-06-18] MEDS ORDERED: ACETAMINOPHEN TAB 325 MG TAB PO PRN (16:41)
[2019-06-18] MEDS ORDERED: NALOXONE 0.4 MG/ML 1 ML VIAL IV PRN (16:41)
[2019-06-18] MEDS ORDERED: ONDANSETRON 4 MG/2 ML VIAL IVP PRN (16:41)
[2019-06-18] MEDS ORDERED: SODIUM CHLORIDE 0.9% 1,000 ML IV SCH (16:45)
[2019-06-18] MEDS ORDERED: ALBUTEROL NEBULIZED 2.5 MG/3 ML INHALATION PRN (18:18)
[2019-06-18] MEDS ORDERED: DICLOFENAC SODIUM GEL 100 GM TUBE TOPICAL PRN (18:18)
[2019-06-18] MEDS ORDERED: BACLOFEN 10 MG TAB PO PRN (18:18)
[2019-06-18] MEDS ORDERED: DENOSUMAB 60 MG/ML 1 ML SYRINGE SQ SCH (18:30)
[2019-06-18] MEDS ORDERED: ALBUTEROL NEBULIZED 2.5 MG/3 ML INHALATION SCH (20:00)
[2019-06-18] MEDS: SYMBICORT 160-4.5 MCG INHALER INHALATION SCH ×2 (20:06→20:24)
[2019-06-18] MEDS: DABIGATRAN 150 MG CAP PO SCH (20:37)
[2019-06-18] MEDS: HYDROcodone/APAP 7.5-325MG 1 EACH TAB PO PRN (20:37)
[2019-06-18] MEDS: VERAPAMIL SR 240 MG TABLET.ER PO SCH (20:38)
[2019-06-18] MEDS ORDERED: LATANOPROST 0.005% OPHTH DROPS 2.5 ML BTL BOTH EYES SCH (21:00)
--- NOTE | 2019-06-18 21:51 | P.HPIM ---
History of Present Illness H&P Date: 06/18/19 Chief Complaint: short of breath cough History of presenting complaint: This is a very pleasant 74-year-old patient of Dr. Faizan sepulveda. Chronic stable medical conditions include GERD, hyperlipidemia, hypertension, Colt arthritis, paroxysmal atrial fibrillation, varicose veins, diverticulosis. Patient is very hard of hearing and does lipreading. For 4 days patient been having increasing chest congestion. Not able to bring up any sputum. No fever but chills are present. Progressively getting worse decided to come in. Appetite had gone down feeling tired and rundown. Review of systems: GEN.: Chills EYES: None HEENT: None NECK: None RESPIRATORY: As above] CARDIOVASCULAR: None GASTROINTESTINAL: None GENITOURINARY: None MUSCULOSKELETAL: Joint pains LYMPHATICS: None HEMATOLOGICAL: None PSYCHIATRY: None NEUROLOGICAL: None Past medical history to include: Asthma, GERD, hyperlipidemia, hypertension, Colt arthritis, paroxysmal atrial fibrillation, varicose veins, stomach ulcer, diverticulitis. Social history: Does not smoke or drink Cold. Lives alone. Physical examination: VITAL SIGNS: 97.7, 66, 18, 179 with 79, 96% room air GENERAL: BMI 22.3, sitting up, awake tired. EYES: Pupils equal. Conjunctiva normal. HEENT: External appearance of nose and ears normal, oral cavity grossly normal. NECK: JVD not raised; masses not palpable. HEART: First and second heart sounds are normal; no edema. LUNGS: Respiratory rate increased, decreased breaths on some wheezing. ABDOMEN: Soft, nontender, liver spleen not palpable, no masses palpable. PSYCH: Alert and oriented x3; mood and affect normal. MUSCULAR skeletal:: Evidence of OA especially in the hands NEUROLOGICAL: Cranial nerves grossly intact; no facial asymmetry, power and sensation grossly intact. LYMPHATICS: No lymph nodes palpable in the axilla and neck INVESTIGATIONS, reviewed in the clinical context: White count 7.5 hemoglobin 16.1 platelets 183 potassium 3.7 bun 38 crit 0.73 Troponin I is less than 0.012, proBNP 669, influenza type B detected EKG tracing personally reviewed by me-sinus rhythm with nonspecific T-wave changes Chest x-ray film personally reviewed by me-possible infiltrate Assessment: -Acute influenza B pneumonitis -Acute exacerbation of moderate persistent asthma -GERD -Hyperlipidemia -Essential hypertension -Primary osteoarthritis -Paroxysmal atrial fibrillation currently in sinus rhythm -History of diverticulitis Plan: Patient's home medications resumed patient started on Tamiflu. IV fluids. Bronchodilators and steroids. Care was discussed with the patient questions were answered. Lovenox for DVT prophylaxis. Past Medical History Past Medical History: Atrial Fibrillation, Asthma, COPD, GERD/Reflux, Hyperlipidemia, Hypertension, Osteoarthritis (OA), Pneumonia Additional Past Medical History / Comment(s): DJD, VARICOSE VEINS, BRONCHITIS, GLAUCOMA, stomach ULCER,DIVERTICULITIS,constipation History of Any Multi-Drug Resistant Organisms: None Reported Past Surgical History: Adenoidectomy, Appendectomy, Heart Catheterization, Hysterectomy, Tonsillectomy, Tubal Ligation Additional Past Surgical History / Comment(s): BILLY CATARACTS. Past Anesthesia/Blood Transfusion Reactions: No Reported Reaction Past Psychological History: No Psychological Hx Reported Additional Psychological History / Comment(s): PT LIVES ALONE IN [place]. SHE USES NO ASSISTIVE DEVICE. SHE DRIVES. HER GRANDDAUGHTER KVNG VISITS DAILY.. Smoking Status: Never smoker Past Alcohol Use History: None Reported Past Drug Use History: None Reported - Past Family History Father Family Medical History: COPD Additional Family Medical History / Comment(s): EMPHYSEMA Mother Family Medical History: Osteoarthritis (OA) Additional Family Medical History / Comment(s): EMPHYSEMA, BOWEL OBSTRUCTION/COLOSTOMY Medications and Allergies Home Medications Medication Instructions Recorded Confirmed Type Albuterol Inhaler [Ventolin Hfa 2 puff INHALATION RT-QID PRN 07/20/15 06/18/19 History Inhaler] Baclofen [Lioresal] 10 mg PO TID PRN 07/20/15 06/18/19 History Dabigatran [Pradaxa] 150 mg PO BID 07/20/15 06/18/19 History Hydrocodone/Acetaminophen [[place] 1 tab PO QID PRN 07/20/15 06/18/19 History 7.5-325] Moexipril [Univasc] 7.5 mg PO DAILY 07/20/15 06/18/19 History Pravastatin Sodium [Pravachol] 40 mg PO DAILY 07/20/15 06/18/19 History Verapamil HCl [Verapamil ER] 240 mg PO BID 04/11/16 06/18/19 History Latanoprost [Xalatan 0.005%] 2 drop BOTH EYES HS 10/15/16 06/18/19 History Nadolol 40 mg PO DAILY 10/15/16 06/18/19 History Omeprazole [PriLOSEC] 20 mg PO DAILY 01/16/17 06/18/19 History Albuterol Nebulized [Ventolin 2.5 mg INHALATION RT-TID 08/11/17 06/18/19 History Nebulized] Budesonide/Formoterol Fumarate 2 puff INHALATION RT-BID 08/11/17 06/18/19 History [Symbicort 160-4.5 Mcg Inhaler] Hydrochlorothiazide 12.5 mg PO DAILY 03/14/19 06/18/19 History Denosumab [Prolia] 60 mg SQ Q180D 06/18/19 06/18/19 History Diclofenac Sodium Gel [Voltaren 1 applic TOPICAL BID PRN 06/18/19 06/18/19 History Gel] Allergies Allergy/AdvReac Type Severity Reaction Status Date / Time No Known Allergies Allergy Verified 06/18/19 17:20 Physical Exam Vitals: Vital Signs Temp Pulse Resp BP Pulse Ox 06/18/19 20:08 68 16 06/18/19 17:17 20 06/18/19 17:00 70 18 153/81 100 06/18/19 16:00 64 18 162/89 100 06/18/19 14:52 64 06/18/19 14:45 62 06/18/19 14:37 61 18 177/89 100 06/18/19 14:08 97.7 F 66 18 179/79 96 Intake and Output 06/18/19 06/18/19 06/18/19 06:59 14:59 22:59 Other: Weight 55.338 kg 55.338 kg Results CBC & Chem 7: 06/18/19 14:21 06/18/19 14:21 Labs: Abnormal Lab Results - Last 24 Hours (Table) 06/18/19 06/18/19 06/18/19 Range/Units 14:21 14:21 14:21 Hgb 16.1 H D (11.4-16.0) gm/dL Hct 49.1 H (34.0-46.0) % Monocytes # (Manual) 1.13 H (0-1.0) k/uL Chloride 94 L (98-107) mmol/L Carbon Dioxide 35 H (22-30) mmol/L BUN 38 H (7-17) mg/dL Glucose 108 H (74-99) mg/dL POC Glucose (mg/dL) (75-99) mg/dL Calcium 10.5 H (8.4-10.2) mg/dL Influenza Type B (PCR) Detected H (Not Detectd) 06/18/19 Range/Units 16:20 Hgb (11.4-16.0) gm/dL Hct (34.0-46.0) % Monocytes # (Manual) (0-1.0) k/uL Chloride (98-107) mmol/L Carbon Dioxide (22-30) mmol/L BUN (7-17) mg/dL Glucose (74-99) mg/dL POC Glucose (mg/dL) 101 H (75-99) mg/dL Calcium (8.4-10.2) mg/dL Influenza Type B (PCR) (Not Detectd) Thrombosis Risk Factor Assmnt - Choose All That Apply Each Risk Factor Represents 2 Points: Age 61-74 years Thrombosis Risk Factor Assessment Total Risk Factor Score: 2 Thrombosis Risk Factor Assessment Level: Low Risk
[2019-06-18] MEDS: BUDESONIDE 1 MG/2 ML NEBU INHALATION SCH (23:09)
[2019-06-18] MEDS: IPRATROPIUM-ALBUTEROL 3 ML NEB INHALATION SCH (23:09)
[2019-06-18] MEDS: OSELTAMIVIR 75 MG CAP PO SCH (23:17)
[2019-06-19] MEDS: IPRATROPIUM-ALBUTEROL 3 ML NEB INHALATION SCH ×4 (00:20→11:43)
[2019-06-19 07:30] VITALS: BP 180/93; RESP 19; TEMP 98
[2019-06-19] MEDS ORDERED: PANTOPRAZOLE 40 MG TABLET PO SCH (07:30)
[2019-06-19] MEDS ORDERED: FORMOTEROL FUMARATE 20 MCG/2 ML NEBU INHALATION SCH (08:00)
[2019-06-19] MEDS: BUDESONIDE 1 MG/2 ML NEBU INHALATION SCH (08:15)
[2019-06-19] MEDS ORDERED: HYDROCHLOROTHIAZIDE 12.5 MG CAP PO SCH (09:00)
[2019-06-19] MEDS ORDERED: LISINOPRIL 10 MG TAB PO SCH (09:00)
[2019-06-19] MEDS ORDERED: NADOLOL 20 MG TAB PO SCH (09:00)
[2019-06-19] MEDS: OSELTAMIVIR 75 MG CAP PO SCH (09:46)
[2019-06-19] MEDS: DABIGATRAN 150 MG CAP PO SCH (09:46)
[2019-06-19] MEDS: HYDROcodone/APAP 7.5-325MG 1 EACH TAB PO PRN (09:47)
[2019-06-19] MEDS: VERAPAMIL SR 240 MG TABLET.ER PO SCH (09:50)
[2019-06-19 11:54] VITALS: PULSE 80
--- NOTE | 2019-06-19 17:56 | P.DS ---
Providers Date of admission: 06/18/19 16:48 Expected date of discharge: 06/19/19 Attending physician: Jovani Pelaez [facility] Course: Chief Complaint: short of breath cough History of presenting complaint: This is a very pleasant 74-year-old patient of Dr. Faizan sepulveda. Chronic stable medical conditions include GERD, hyperlipidemia, hypertension, Colt arthritis, paroxysmal atrial fibrillation, varicose veins, diverticulosis. Patient is very hard of hearing and does lipreading. For 4 days patient been having increasing chest congestion. Not able to bring up any sputum. No fever but chills are present. Progressively getting worse decided to come in. Appetite had gone down feeling tired and rundown. Admitted with acute influenza B pneumonitis and asthma exacerbation. Responded well to bronchodilators, steroids, Tamiflu. Today-doing much better. Very keen to go home. Symptoms greatly improved. Tolerating a diet. Physical examination: GENERAL: BMI 22.3, sitting up, awake tired. EYES: Pupils equal. Conjunctiva normal. HEENT: External appearance of nose and ears normal, oral cavity grossly normal. NECK: JVD not raised; masses not palpable. HEART: First and second heart sounds are normal; no edema. LUNGS: Respiratory rate normal, improved air entry ABDOMEN: Soft, nontender, liver spleen not palpable, no masses palpable. PSYCH: Alert and oriented x3; mood and affect normal. MUSCULAR skeletal:: Evidence of OA especially in the hands INVESTIGATIONS, reviewed in the clinical context: White count 7.5 hemoglobin 16.1 platelets 183 potassium 3.7 bun 38 crit 0.73 Troponin I is less than 0.012, proBNP 669, influenza type B detected EKG tracing personally reviewed by me-sinus rhythm with nonspecific T-wave changes Chest x-ray film personally reviewed by me-possible infiltrate Influenza B PCR-detected Assessment: -Acute influenza B pneumonitis -Acute exacerbation of moderate persistent asthma -GERD -Hyperlipidemia -Essential hypertension -Primary osteoarthritis -Paroxysmal atrial fibrillation currently in sinus rhythm -History of diverticulitis Disposition: Home Patient Condition at Discharge: Stable Plan - Discharge Summary Discharge Rx Participant: No New Discharge Prescriptions: New Cefuroxime Axetil [Ceftin] 500 mg PO BID 3 Days #6 tab Oseltamivir [Tamiflu] 75 mg PO Q12HR #10 cap Continue Pravastatin Sodium [Pravachol] 40 mg PO DAILY Hydrocodone/Acetaminophen [[place] 7.5-325] 1 tab PO QID PRN PRN Reason: Pain Baclofen [Lioresal] 10 mg PO TID PRN PRN Reason: Muscle Spasm Albuterol Inhaler [Ventolin Hfa Inhaler] 2 puff INHALATION RT-QID PRN PRN Reason: Shortness Of Breath Dabigatran [Pradaxa] 150 mg PO BID Moexipril [Univasc] 7.5 mg PO DAILY Verapamil HCl [Verapamil ER] 240 mg PO BID Nadolol 40 mg PO DAILY Latanoprost [Xalatan 0.005%] 2 drop BOTH EYES HS Omeprazole [PriLOSEC] 20 mg PO DAILY Budesonide/Formoterol Fumarate [Symbicort 160-4.5 Mcg Inhaler] 2 puff INHALATION RT-BID Albuterol Nebulized [Ventolin Nebulized] 2.5 mg INHALATION RT-TID Hydrochlorothiazide 12.5 mg PO DAILY Diclofenac Sodium Gel [Voltaren Gel] 1 applic TOPICAL BID PRN PRN Reason: Pain Denosumab [Prolia] 60 mg SQ Q180D Discharge Medication List Albuterol Inhaler [Ventolin Hfa Inhaler] 2 puff INHALATION RT-QID PRN 07/20/15 [History] Baclofen [Lioresal] 10 mg PO TID PRN 07/20/15 [History] Dabigatran [Pradaxa] 150 mg PO BID 07/20/15 [History] Hydrocodone/Acetaminophen [[place] 7.5-325] 1 tab PO QID PRN 07/20/15 [History] Moexipril [Univasc] 7.5 mg PO DAILY 07/20/15 [History] Pravastatin Sodium [Pravachol] 40 mg PO DAILY 07/20/15 [History] Verapamil HCl [Verapamil ER] 240 mg PO BID 04/11/16 [History] Latanoprost [Xalatan 0.005%] 2 drop BOTH EYES HS 10/15/16 [History] Nadolol 40 mg PO DAILY 10/15/16 [History] Omeprazole [PriLOSEC] 20 mg PO DAILY 01/16/17 [History] Albuterol Nebulized [Ventolin Nebulized] 2.5 mg INHALATION RT-TID 08/11/17 [History] Budesonide/Formoterol Fumarate [Symbicort 160-4.5 Mcg Inhaler] 2 puff INHALATION RT-BID 08/11/17 [History] Hydrochlorothiazide 12.5 mg PO DAILY 03/14/19 [History] Denosumab [Prolia] 60 mg SQ Q180D 06/18/19 [History] Diclofenac Sodium Gel [Voltaren Gel] 1 applic TOPICAL BID PRN 06/18/19 [History] Cefuroxime Axetil [Ceftin] 500 mg PO BID 3 Days #6 tab 06/19/19 [Rx] Oseltamivir [Tamiflu] 75 mg PO Q12HR #10 cap 06/19/19 [Rx] Follow up Appointment(s)/Referral(s): Faizan Sepulveda MD [Primary Care Provider] - 06/24/19 1:15 pm Patient Instructions/Handouts: Influenza (DC) Activity/Diet/Wound Care/Special Instructions: Regular diet. Limited activity until follow up with primary doctor. Flu precautions. Discharge Disposition: HOME SELF-CARE
[2019-06-19] MEDS ORDERED: OSELTAMIVIR 60 MG/10 ML ORAL SYRINGE PO SCH (21:00)
== END 2019-06-19 13:57 | disposition home or self-care (01) | DRG 194 ==
LOC: EC 14:04 → 6NMEDSUR 16:48
PROVIDERS: ADMIT Hospitalist; ATTEND Hospitalist
DX: J10.01 Influenza due to other identified influenza virus with the same other identified influenza virus pneumonia (principal); J45.41 Moderate persistent asthma with (acute) exacerbation; J44.9 Chronic obstructive pulmonary disease, unspecified; I48.0 Paroxysmal atrial fibrillation; I10 Essential (primary) hypertension; E78.5 Hyperlipidemia, unspecified; K21.9 Gastro-esophageal reflux disease without esophagitis; M19.91 Primary osteoarthritis, unspecified site; K57.90 Diverticulosis of intestine, part unspecified, without perforation or abscess without bleeding; I83.90 Asymptomatic varicose veins of unspecified lower extremity; H40.9 Unspecified glaucoma; H91.90 Unspecified hearing loss, unspecified ear; Z79.51 Long term (current) use of inhaled steroids; Z79.01 Long term (current) use of anticoagulants; Z79.899 Other long term (current) drug therapy; Z87.11 Personal history of peptic ulcer disease; Z90.710 Acquired absence of both cervix and uterus; Z98.51 Tubal ligation status; Z98.42 Cataract extraction status, left eye; Z98.41 Cataract extraction status, right eye; Z82.5 Family history of asthma and other chronic lower respiratory diseases; Z82.61 Family history of arthritis; Z83.79 Family history of other diseases of the digestive system
CPT/HCPCS: 36415; 71046; 80048; 83880; 84484; 85025; 87040; 87502; 93005; 94640; 96361; 96365; 96375; 99285

== ENCOUNTER 2019-10-08 19:01 | Emergency (ER) | payer MEDICARE, OTHER ==
[2019-10-08 19:13] VITALS: BP 187/91; PULSE 76; RESP 20; TEMP 98
[2019-10-08] MEDS ORDERED: OXYMETAZOLINE 0.05% NASL SPRAY 1 SPRAY BOTTLE NASAL STA (19:34)
[2019-10-08] MEDS ORDERED: LIDOCAINE/EPINEPHR/TETRACAINE 5 ML BOTTLE TOPICAL ONE (20:08)
--- NOTE | 2019-10-08 21:24 | ED ---
General Adult HPI - General Source: patient, family Mode of arrival: ambulatory Limitations: no limitations <Joleen Anderson - Last Filed: 10/09/19 01:33> <Gretta Walton - Last Filed: 10/12/19 01:12> - General Chief complaint: ENT Stated complaint: Nose bleed Time Seen by Provider: 10/08/19 19:28 - History of Present Illness Initial comments: 74-year-old female patient presents to the emergency department today for evaluation of bleeding from the left nostril. Patient is very hard of hearing and daughter assists with history. States that the patient had a bloody nose a couple of days ago and was able to get it to stop after about 5 minutes. She states that today the patient admits to picking her nose causing the bleeding to start again. They state that the bleeding started about three hours ago and they have been unable to get it to stop. They have tried applying pressure without success. Patient does take pradaxa. She denies any dizziness or weakness. Denies any other sources of bleeding. Patient denies any recent rash, fever, chills, cough, shortness of breath, chest pain, abdominal pain, nausea, vomiting, diarrhea, constipation, back pain, numbness, tingling, hematuria, dysuria, urinary urgency, urinary frequency, headache, visual changes, or any other complaints. (Joleen Anderson) - Related Data Home Medications Medication Instructions Recorded Confirmed Albuterol Inhaler (Mhu) [Ventolin 2 puff INHALATION RT-QID PRN 07/20/15 06/18/19 Hfa Inhaler (Mhu)] Baclofen [Lioresal] 10 mg PO TID PRN 07/20/15 06/18/19 Dabigatran [Pradaxa] 150 mg PO BID 07/20/15 06/18/19 Hydrocodone/Acetaminophen [[place] 1 tab PO QID PRN 07/20/15 06/18/19 7.5-325] Moexipril [Univasc] 7.5 mg PO DAILY 07/20/15 06/18/19 Pravastatin Sodium [Pravachol] 40 mg PO DAILY 07/20/15 06/18/19 Verapamil HCl [Verapamil ER] 240 mg PO BID 04/11/16 06/18/19 Latanoprost [Xalatan 0.005%] 2 drop BOTH EYES HS 10/15/16 06/18/19 Nadolol 40 mg PO DAILY 10/15/16 06/18/19 Omeprazole [PriLOSEC] 20 mg PO DAILY 01/16/17 06/18/19 Albuterol Nebulized [Ventolin 2.5 mg INHALATION RT-TID 08/11/17 06/18/19 Nebulized] Budesonide/Formoterol Fumarate 2 puff INHALATION RT-BID 08/11/17 06/18/19 [Symbicort 160-4.5 Mcg Inhaler] Hydrochlorothiazide 12.5 mg PO DAILY 03/14/19 06/18/19 Denosumab [Prolia] 60 mg SQ Q180D 06/18/19 06/18/19 Diclofenac Sodium Gel [Voltaren 1 applic TOPICAL BID PRN 06/18/19 06/18/19 Gel] Previous Rx's Medication Instructions Recorded Cefuroxime Axetil [Ceftin] 500 mg PO BID 3 Days #6 tab 06/19/19 Oseltamivir [Tamiflu] 75 mg PO Q12HR #10 cap 06/19/19 Allergies Allergy/AdvReac Type Severity Reaction Status Date / Time No Known Allergies Allergy Verified 10/08/19 19:13 Review of Systems ROS Other: All systems not noted in ROS Statement are negative. <Joleen Anderson - Last Filed: 10/09/19 01:33> ROS Other: All systems not noted in ROS Statement are negative. <Gretta Walton - Last Filed: 10/12/19 01:12> ROS Statement: Those systems with pertinent positive or pertinent negative responses have been documented in the HPI. Past Medical History Past Medical History: Atrial Fibrillation, Asthma, COPD, GERD/Reflux, Hyperlipidemia, Hypertension, Osteoarthritis (OA), Pneumonia Additional Past Medical History / Comment(s): DJD, VARICOSE VEINS, BRONCHITIS, GLAUCOMA, stomach ULCER,DIVERTICULITIS,constipation History of Any Multi-Drug Resistant Organisms: None Reported Past Surgical History: Adenoidectomy, Appendectomy, Heart Catheterization, Hysterectomy, Tonsillectomy, Tubal Ligation Additional Past Surgical History / Comment(s): BILLY CATARACTS. Past Anesthesia/Blood Transfusion Reactions: No Reported Reaction Past Psychological History: No Psychological Hx Reported Smoking Status: Never smoker Past Alcohol Use History: None Reported Past Drug Use History: None Reported - Past Family History Father Family Medical History: COPD Additional Family Medical History / Comment(s): EMPHYSEMA Mother Family Medical History: Osteoarthritis (OA) Additional Family Medical History / Comment(s): EMPHYSEMA, BOWEL OBSTRUCTION/COLOSTOMY <Joleen Anderson - Last Filed: 10/09/19 01:33> General Exam Limitations: no limitations, language barrier (Hard of hearing) General appearance: alert, in no apparent distress, other (This is a well- developed, well-nourished adult female patient in no acute distress. Vital signs upon presentation are temperature 98.0F, pulse 76, respirations 20, blood pressure 187/91, pulse ox 96% on room air.) ENT exam: Present: mucous membranes moist, other (Bleeding from the left nare, seems to be anterior over the septal surface. ). Absent: normal exam Respiratory exam: Present: normal lung sounds bilaterally. Absent: respiratory distress, wheezes, rales, rhonchi, stridor Cardiovascular Exam: Present: regular rate, normal rhythm, normal heart sounds. Absent: systolic murmur, diastolic murmur, rubs, gallop, clicks Neurological exam: Present: alert, oriented X3, CN II-XII intact Psychiatric exam: Present: normal affect, normal mood Skin exam: Present: warm, dry, intact, normal color. Absent: rash <Joleen Anderson - Last Filed: 10/09/19 01:33> Course Vital Signs 10/08/19 19:09 Temperature 98 F Pulse Rate 76 Respiratory 20 Rate Blood Pressure 187/91 O2 Sat by Pulse 96 Oximetry Medical Decision Making <Joleen Anderson - Last Filed: 10/09/19 01:33> <Gretta Walton - Last Filed: 10/12/19 01:12> - Medical Decision Making 74 year-old female patient presents to the emergency department for evaluation of left nasal bleeding. Physical examination revealed a anterior nose bleed over the septal surface. Initially attempted to stop the bleeding with afrin and pressure. This was unsuccessful. I soaked cotton balls with Xap solution, applied it over the bleeding location. Pressure was held for about 25 minutes. Upon re-evaluation the bleeding ceased. Patient was monitored and ambulated in the department without further bleeding. She'll be discharged to follow up with her primary care physician. She is instructed to avoid picking her nose, inserting anything into the nose, or blowing her nose. Return parameters were discussed in detail. She verbalizes understanding and agrees with this plan. (Joleen Anderson) I was available for consultation in the emergency department. The history and physical exam were done by the midlevel provider. I was consulted for this patients care. I reviewed the case with the midlevel provider and based on their presentation of the patient, I agree with the assessment, medical decision making and plan of care as documented. Chart was dictated using [employer] dictation software. Attempts were made to correct any dictation errors however some typographical errors may persist. Patient was seen during a national state of emergency due to the Covid-19 pandemic. (Gretta Walton) Disposition Is patient prescribed a controlled substance at d/c from ED?: No Time of Disposition: 21:24 <Joleen Anderson - Last Filed: 10/09/19 01:33> <Gretta Walton - Last Filed: 10/12/19 01:12> Clinical Impression: Epistaxis Disposition: HOME SELF-CARE Condition: Good Instructions (If sedation given, give patient instructions): Nosebleed (ED) Additional Instructions: Do not pick your nose, insert anything in to your nose, or blow your nose. Follow up with ENT specialist for further evaluation as soon as possible. If your nose starts bleeding again, blow out all clots, spray afrin, and apply pressure for 20 minutes without stopping. If your nose continues to bleed, repeat this process. If the bleeding persists after two rounds of treatment, return to the emergency department. Follow-up through primary care physician for recheck in 1-2 days. Return to the emergency department for any new, worsening, or concerning symptoms. Referrals: Faizan Estrella MD [Primary Care Provider] - 1-2 days Wilfredo Romero MD [STAFF PHYSICIAN] - 1-2 days
== END 2019-10-08 21:35 | disposition home or self-care (01) ==
LOC: EC 19:01
DX: R04.0 Epistaxis (principal); I48.91 Unspecified atrial fibrillation; J44.9 Chronic obstructive pulmonary disease, unspecified; K21.9 Gastro-esophageal reflux disease without esophagitis; I10 Essential (primary) hypertension; E78.5 Hyperlipidemia, unspecified; Z79.899 Other long term (current) drug therapy; Z79.51 Long term (current) use of inhaled steroids
CPT/HCPCS: 99283

== ENCOUNTER 2019-12-03 12:15 | Observation (INO) | payer MEDICARE, OTHER ==
[2019-12-03] MEDS ORDERED: ASPIRIN 81 MG PO STA (12:45)
[2019-12-03] MEDS ORDERED: NITROGLYCERIN OINT 1 INCH/GM PACKET TOPICAL STA (12:45)
--- NOTE | 2019-12-03 12:49 | ED ---
General Adult HPI - General Chief complaint: Chest Pain Stated complaint: L arm pain, Hypertension Time Seen by Provider: 12/03/19 12:20 Source: patient, family, RN notes reviewed, old records reviewed Mode of arrival: ambulatory Limitations: no limitations - History of Present Illness Initial comments: This is a 74-year-old female presents emergency Department with a past medical history significant for high blood pressure COPD and has a significant family history for heart disease. Patient is very hard of hearing and her granddaughter is translating for her. Patient comes in complaining of intermittent chest pain and left scapular pain as well as left forearm pain over the last week. Patient states it usually comes on the last few minutes she doesn't believe there are any associated symptoms such as shortness of breath diaphoresis or nausea. Patient states exertion doesn't seem to make it worse but she tries not to exert herself secondary to her COPD per patient denies any recent fever chills or cough. Patient states she's currently not any pain. Patient denies any swelling to legs or calf tenderness. Patient denies any abdominal pain patient denies any nausea vomiting or diarrhea. Patient denies any headache patient denies numbness weakness. - Related Data Home Medications Medication Instructions Recorded Confirmed Albuterol Inhaler (Mhu) [Ventolin 2 puff INHALATION RT-QID PRN 07/20/15 06/18/19 Hfa Inhaler (Mhu)] Baclofen [Lioresal] 10 mg PO TID PRN 07/20/15 06/18/19 Dabigatran [Pradaxa] 150 mg PO BID 07/20/15 06/18/19 Hydrocodone/Acetaminophen [[place] 1 tab PO QID PRN 07/20/15 06/18/19 7.5-325] Moexipril [Univasc] 7.5 mg PO DAILY 07/20/15 06/18/19 Pravastatin Sodium [Pravachol] 40 mg PO DAILY 07/20/15 06/18/19 Verapamil HCl [Verapamil ER] 240 mg PO BID 04/11/16 06/18/19 Latanoprost [Xalatan 0.005%] 2 drop BOTH EYES HS 10/15/16 06/18/19 Nadolol 40 mg PO DAILY 10/15/16 06/18/19 Omeprazole [PriLOSEC] 20 mg PO DAILY 01/16/17 06/18/19 Albuterol Nebulized [Ventolin 2.5 mg INHALATION RT-TID 08/11/17 06/18/19 Nebulized] Budesonide/Formoterol Fumarate 2 puff INHALATION RT-BID 08/11/17 06/18/19 [Symbicort 160-4.5 Mcg Inhaler] Hydrochlorothiazide 12.5 mg PO DAILY 03/14/19 06/18/19 [hydroCHLOROthiazide] Denosumab [Prolia] 60 mg SQ Q180D 06/18/19 06/18/19 Diclofenac Sodium Gel [Voltaren 1 applic TOPICAL BID PRN 06/18/19 06/18/19 Gel] Previous Rx's Medication Instructions Recorded Cefuroxime Axetil [Ceftin] 500 mg PO BID 3 Days #6 tab 06/19/19 Oseltamivir [Tamiflu] 75 mg PO Q12HR #10 cap 06/19/19 Allergies Allergy/AdvReac Type Severity Reaction Status Date / Time No Known Allergies Allergy Verified 12/03/19 12:24 Review of Systems ROS Statement: Those systems with pertinent positive or pertinent negative responses have been documented in the HPI. ROS Other: All systems not noted in ROS Statement are negative. Past Medical History Past Medical History: Atrial Fibrillation, Asthma, COPD, GERD/Reflux, Hyperlipidemia, Hypertension, Osteoarthritis (OA), Pneumonia Additional Past Medical History / Comment(s): DJD, VARICOSE VEINS, BRONCHITIS, GLAUCOMA, stomach ULCER,DIVERTICULITIS,constipation History of Any Multi-Drug Resistant Organisms: None Reported Past Surgical History: Adenoidectomy, Appendectomy, Heart Catheterization, Hysterectomy, Tonsillectomy, Tubal Ligation Additional Past Surgical History / Comment(s): BILLY CATARACTS. Past Anesthesia/Blood Transfusion Reactions: No Reported Reaction Past Psychological History: No Psychological Hx Reported Smoking Status: Former smoker Past Alcohol Use History: None Reported Past Drug Use History: None Reported - Past Family History Father Family Medical History: COPD Additional Family Medical History / Comment(s): EMPHYSEMA Mother Family Medical History: Osteoarthritis (OA) Additional Family Medical History / Comment(s): EMPHYSEMA, BOWEL OBSTRUCTION/COLOSTOMY General Exam - General Exam Comments Initial Comments: GENERAL: Patient is well-developed and well-nourished. Patient is nontoxic and well- hydrated and is in no acute distress. ENT: Neck is soft and supple. No significant lymphadenopathy is noted. Oropharynx is clear. Moist mucous membranes. Neck has full range of motion without eliciting any pain. EYES: The sclera were anicteric and conjunctiva were pink and moist. Extraocular movements were intact and pupils were equal round and reactive to light. Eyelids were unremarkable. PULMONARY: Unlabored respirations. Good breath sounds bilaterally. No audible rales rhonchi or wheezing was noted. CARDIOVASCULAR: There is a regular rate and rhythm without any murmurs gallops or rubs. Pain is not reproducible with movement or palpation ABDOMEN: Soft and nontender with normal bowel sounds. SKIN: Skin is clear with no lesions or rashes and otherwise unremarkable. NEUROLOGIC: Patient is alert and oriented x3. Cranial nerves II through XII are grossly intact. Motor and sensory are also intact. Normal speech, volume and content. Symmetrical smile. MUSCULOSKELETAL: Normal extremities with adequate strength and full range of motion. No lower extremity swelling or edema. No calf tenderness. LYMPHATICS: No significant lymphadenopathy is noted PSYCHIATRIC: Normal psychiatric evaluation. Limitations: no limitations Course Vital Signs 12/03/19 12/03/19 12:20 13:30 Temperature 98.3 F Pulse Rate 63 57 L Respiratory 18 18 Rate Blood Pressure 138/74 141/87 O2 Sat by Pulse 97 96 Oximetry Medical Decision Making - Medical Decision Making EKG shows sinus rhythm at 63 bpm VA interval is 234 QRS is 84 Q-T intervals 436 QTC is 446. Patient's EKG shows no ST segment elevation or depression. Chest x-ray shows no acute abnormality. Patient has had 3 short episodes of chest pain while in the emergency department. He is alert and per ANSON so heparin will not be started. I spoke with some physician they agreed to admit the patient admitted the patient wrote admitting orders. - Lab Data Result diagrams: 12/03/19 13:03 12/03/19 13:03 Lab Results 12/03/19 12/03/19 12/03/19 Range/Units 13:03 13:03 13:03 WBC 8.8 (3.8-10.6) k/uL RBC 4.19 (3.80-5.40) m/uL Hgb 13.5 (11.4-16.0) gm/dL Hct 42.1 (34.0-46.0) % MCV 100.4 H (80.0-100.0) fL MCH 32.3 (25.0-35.0) pg MCHC 32.2 (31.0-37.0) g/dL RDW 13.4 (11.5-15.5) % Plt Count 235 (150-450) k/uL Neutrophils % 62 % Lymphocytes % 21 % Monocytes % 7 % Eosinophils % 6 % Basophils % 1 % Neutrophils # 5.5 (1.3-7.7) k/uL Lymphocytes # 1.8 (1.0-4.8) k/uL Monocytes # 0.6 (0-1.0) k/uL Eosinophils # 0.5 (0-0.7) k/uL Basophils # 0.0 (0-0.2) k/uL PT 13.1 H (9.0-12.0) sec INR 1.3 H (<1.2) APTT 46.9 H (22.0-30.0) sec Sodium 139 (137-145) mmol/L Potassium 3.6 (3.5-5.1) mmol/L Chloride 102 (98-107) mmol/L Carbon Dioxide 31 H (22-30) mmol/L Anion Gap 6 mmol/L BUN 18 H (7-17) mg/dL Creatinine 0.71 (0.52-1.04) mg/dL Est GFR (CKD-EPI)AfAm >90 (>60 ml/min/1.73 sqM) Est GFR (CKD-EPI)NonAf 84 (>60 ml/min/1.73 sqM) Glucose 117 H (74-99) mg/dL Calcium 9.6 (8.4-10.2) mg/dL Magnesium 1.7 (1.6-2.3) mg/dL Total Bilirubin 0.8 (0.2-1.3) mg/dL AST 38 H (14-36) U/L ALT 15 (4-34) U/L Alkaline Phosphatase 68 (38-126) U/L Troponin I (0.000-0.034) ng/mL Total Protein 6.6 (6.3-8.2) g/dL Albumin 4.1 (3.5-5.0) g/dL 12/03/19 Range/Units 13:03 WBC (3.8-10.6) k/uL RBC (3.80-5.40) m/uL Hgb (11.4-16.0) gm/dL Hct (34.0-46.0) % MCV (80.0-100.0) fL MCH (25.0-35.0) pg MCHC (31.0-37.0) g/dL RDW (11.5-15.5) % Plt Count (150-450) k/uL Neutrophils % % Lymphocytes % % Monocytes % % Eosinophils % % Basophils % % Neutrophils # (1.3-7.7) k/uL Lymphocytes # (1.0-4.8) k/uL Monocytes # (0-1.0) k/uL Eosinophils # (0-0.7) k/uL Basophils # (0-0.2) k/uL PT (9.0-12.0) sec INR (<1.2) APTT (22.0-30.0) sec Sodium (137-145) mmol/L Potassium (3.5-5.1) mmol/L Chloride (98-107) mmol/L Carbon Dioxide (22-30) mmol/L Anion Gap mmol/L BUN (7-17) mg/dL Creatinine (0.52-1.04) mg/dL Est GFR (CKD-EPI)AfAm (>60 ml/min/1.73 sqM) Est GFR (CKD-EPI)NonAf (>60 ml/min/1.73 sqM) Glucose (74-99) mg/dL Calcium (8.4-10.2) mg/dL Magnesium (1.6-2.3) mg/dL Total Bilirubin (0.2-1.3) mg/dL AST (14-36) U/L ALT (4-34) U/L Alkaline Phosphatase (38-126) U/L Troponin I <0.012 (0.000-0.034) ng/mL Total Protein (6.3-8.2) g/dL Albumin (3.5-5.0) g/dL Disposition Clinical Impression: Chest pain Disposition: ADMITTED IP TO THIS [facility] Referrals: Faizan Estrella MD [Primary Care Provider] - 1-2 days Time of Disposition: 14:09
[2019-12-03 13:22] LABS: Basophils % (A) 1 %; Eosinophils # (A) 0.5 k/uL (0-0.7); Eosinophils % (A) 6 %; HCT 42.1 % (34.0-46.0); HGB 13.5 gm/dL (11.4-16.0); Lymphocytes # (A) 1.8 k/uL (1.0-4.8); Lymphocytes % (A) 21 %; MCH 32.3 pg (25.0-35.0); MCHC 32.2 g/dL (31.0-37.0); MCV 100.4 fL (80.0-100.0); Mean Platelet Volume 8.3; Monocytes # (A) 0.6 k/uL (0-1.0); Monocytes % (A) 7 %; Neutrophils # (A) 5.5 k/uL (1.3-7.7); Neutrophils % (A) 62 %; Platelet Count 235 k/uL (150-450); RBC 4.19 m/uL (3.80-5.40); RDW 13.4 % (11.5-15.5); WBC 8.8 k/uL (3.8-10.6)
[2019-12-03 13:33] LABS: INR 1.3 (<1.2); Partial Thromboplastin Time 46.9 sec (22.0-30.0); Prothrombin Time 13.1 sec (9.0-12.0)
--- NOTE | 2019-12-03 13:41 | XR ---
EXAMINATION TYPE: XR chest 2V DATE OF EXAM: 12/03/2019 COMPARISON: 06/18/2019 HISTORY: 74-year-old female with chest pain TECHNIQUE: PA and lateral views FINDINGS: Heart mildly enlarged. Mild elongation/ectasia of the thoracic aorta is unchanged. Mild interstitial prominence. Mild hyperinflation. Biapical pleural-parenchymal scarring. No consolidation or pleural e ffusion seen. IMPRESSION: Cardiomegaly and suspected underlying COPD. No definite acute process identified.
[2019-12-03 13:44] LABS: ALT 15 U/L (4-34); AST 38 U/L (14-36); African American GFR (CKD) >90 (>60 ml/min/1.73 sqM); Albumin 4.1 g/dL (3.5-5.0); Alkaline Phosphatase 68 U/L (38-126); Anion Gap 6 mmol/L; Blood Urea Nitrogen 18 mg/dL (7-17); Calcium 9.6 mg/dL (8.4-10.2); Carbon Dioxide 31 mmol/L (22-30); Chloride 102 mmol/L (98-107); Glucose 117 mg/dL (74-99); Magnesium 1.7 mg/dL (1.6-2.3); Non-African American GFR(CKD) 84 (>60 ml/min/1.73 sqM); Potassium 3.6 mmol/L (3.5-5.1); Sodium 139 mmol/L (137-145); Total Bilirubin 0.8 mg/dL (0.2-1.3); Total Protein 6.6 g/dL (6.3-8.2)
[2019-12-03] MEDS ORDERED: NITROGLYCERIN SL TABS 0.4 MG TAB SUBLINGUAL PRN (14:09)
[2019-12-03] MEDS ORDERED: NITROGLYCERIN OINT 1 INCH/GM PACKET TOPICAL SCH (18:00)
[2019-12-03] MEDS ORDERED: DICLOFENAC SODIUM GEL 100 GM TUBE TOPICAL PRN (18:05)
[2019-12-03] MEDS ORDERED: BACLOFEN 10 MG TAB PO PRN (18:05)
[2019-12-03] MEDS ORDERED: ALBUTEROL NEBULIZED 2.5 MG/3 ML INHALATION PRN (18:05)
[2019-12-03] MEDS ORDERED: MELATONIN 3 MG TABLET PO PRN (18:12)
[2019-12-03] MEDS ORDERED: ACETAMINOPHEN TAB 325 MG TAB PO PRN (18:12)
[2019-12-03] MEDS ORDERED: NALOXONE 0.4 MG/ML 1 ML VIAL IV PRN (18:12)
--- NOTE | 2019-12-03 18:18 | P.HPIM ---
History of Present Illness H&P Date: 12/03/19 Chief Complaint: scapular pain Patient is a 74-year-old female with a history of atrial fibrillation, COPD, hypertension, dyslipidemia, and prior GI bleed who presented to the hospital with complaints of left shoulder and arm pain. In the ER she underwent an extensive evaluation. Her vital signs are within normal limits on admission. EKG did not reveal any acute ischemia. Laboratory analysis demonstrated a mildly elevated INR at 1.3, carbon dioxide 31, glucose 117, and initial troponin was negative. Repeat three-hour troponin was also negative. There is concern for possible cardiac etiology and request was made for observation. Patient seen and examined at bedside. Granddaughter is present help to obtain information from patient due to her hearing difficulties. The last 7 days she has reported some left shoulder/scapular pain with intermittent pain down into her left arm. She denies any numbness or tingling. No overt chest discomfort. No nausea, lightheadedness, syncope, or presyncope. She denies any changes in her chronic shortness of breath. She denies any pain up into her neck or into her jaw. She states that this lasted about 30 seconds and occurs every 5-6 minutes. She denies any activities that make the pain better or worse, no medication has relieved the pain. She denies doing any unusual activities. She did not take any extra doses of medication or missed any doses of medications. Her medications have not recently changed. She denies any recent cough, cold, fever, or flu. She states she is otherwise been well. She uses a nebulizer but no other assistive devices. Review of Systems Pertinent positives and negatives as discussed in HPI, a complete review of systems was performed and all other systems are negative. Past Medical History Past Medical History: Atrial Fibrillation, Asthma, COPD, GERD/Reflux, GI Bleed, Hyperlipidemia, Hypertension, Osteoarthritis (OA), Pneumonia, Vascular Disorder Additional Past Medical History / Comment(s): Pt is very hard of hearing, she wears a hearing aide and normally reads lips-she reads and writes. Other Hx: Bronchitis, gastric ulcer, diverticular disease, lower GI bleed/AV malformation with ablation, benign colon polyp, borderline hyperlipidemia, arthritis mostly in back, slight bilateral glaucoma, varicosities. History of Any Multi-Drug Resistant Organisms: None Reported Past Surgical History: Adenoidectomy, Appendectomy, Heart Catheterization, Hysterectomy, Tonsillectomy, Tubal Ligation Additional Past Surgical History / Comment(s): Colonoscopy/benign polypectomy/AV malformation ablation, bilateral cataract removals Past Anesthesia/Blood Transfusion Reactions: No Reported Reaction Smoking Status: Second hand smoke exposure Past Alcohol Use History: None Reported Additional History: No cane or walker. nebulizer - Past Family History Father Family Medical History: COPD Additional Family Medical History / Comment(s): EMPHYSEMA Mother Family Medical History: Osteoarthritis (OA) Additional Family Medical History / Comment(s): EMPHYSEMA, BOWEL OBSTRUCTION/COLOSTOMY Medications and Allergies Home Medications Medication Instructions Recorded Confirmed Type Baclofen [Lioresal] 10 mg PO TID PRN 07/20/15 12/03/19 History Dabigatran [Pradaxa] 150 mg PO BID 07/20/15 12/03/19 History Hydrocodone/Acetaminophen [[place] 1 tab PO QID PRN 07/20/15 12/03/19 History 7.5-325] Moexipril [Univasc] 7.5 mg PO DAILY 07/20/15 12/03/19 History Pravastatin Sodium [Pravachol] 40 mg PO DAILY 07/20/15 12/03/19 History Verapamil HCl [Verapamil ER] 240 mg PO BID 04/11/16 12/03/19 History Latanoprost [Xalatan 0.005%] 2 drop BOTH EYES HS 10/15/16 12/03/19 History Nadolol 40 mg PO DAILY 10/15/16 12/03/19 History Omeprazole [PriLOSEC] 20 mg PO DAILY 01/16/17 12/03/19 History Albuterol Nebulized [Ventolin 2.5 mg INHALATION RT-TID 08/11/17 12/03/19 History Nebulized] Budesonide/Formoterol Fumarate 2 puff INHALATION RT-BID 08/11/17 12/03/19 History [Symbicort 160-4.5 Mcg Inhaler] Hydrochlorothiazide 12.5 mg PO DAILY 03/14/19 12/03/19 History [hydroCHLOROthiazide] Diclofenac Sodium Gel [Voltaren 1 applic TOPICAL BID PRN 06/18/19 12/03/19 History Gel] Albuterol Inhaler [Ventolin Hfa 1 puff INHALATION RT-QID PRN 12/03/19 12/03/19 History Inhaler] Allergies Allergy/AdvReac Type Severity Reaction Status Date / Time No Known Allergies Allergy Verified 12/03/19 14:37 Physical Exam Osteopathic Statement: *. No significant issues noted on an osteopathic structu ral exam other than those noted in the History and Physical/Consult. Vitals: Vital Signs Temp Pulse Resp BP Pulse Ox 12/03/19 15:00 56 L 18 136/89 94 L 12/03/19 14:30 54 L 18 148/79 95 12/03/19 13:30 57 L 18 141/87 96 12/03/19 12:20 98.3 F 63 18 138/74 97 Intake and Output 12/03/19 12/03/19 12/03/19 06:59 14:59 22:59 Other: Weight 55.338 kg 55.338 kg General: non toxic, no distress, appears at stated age Derm: warm, dry Head: atraumatic, normocephalic, symmetric Eyes: EOMI, no lid lag, anicteric sclera, pupils equal round reactive to light ENT: Nose and ears atraumatic, no thrush, no pharyngeal erythema, HO-CHUNK Neck: No thyromegaly, no cervical lymphadenopathy, trachea midline, supple Mouth: no lip lesion, mucus membranes moist Cardiovascular: S1S2 reg, no murmur, positive posterior tibial pulse bilateral, no edema, capillary refill less than 2 seconds Lungs: clear to ascultation bilateral, no ronchi, no rales, no wheeze, no accessory muscle use Abdominal: soft, nontender to palpation, no guarding, no appreciable organomegaly, normal bowel sounds Ext: no gross muscle atrophy, muscle strength muscle strength 5 out of 5 in all 4 extremities, no contractures, no scapular winging, + pain but in for arm for empty can test, no pain to abduction/adduction of arm or external/internal rotation, no pain over biceps tendon insertion, no pain on palpation of AC joint. Neuro: CN II-XI grossly intact, light touch intact all 4 extremities, finger to nose within normal limits, Psych: Alert, oriented, appropriate affect Results CBC & Chem 7: 12/03/19 13:03 12/03/19 13:03 Labs: Abnormal Lab Results - Last 24 Hours (Table) 12/03/19 12/03/19 12/03/19 Range/Units 13:03 13:03 13:03 MCV 100.4 H (80.0-100.0) fL PT 13.1 H (9.0-12.0) sec INR 1.3 H (<1.2) APTT 46.9 H (22.0-30.0) sec Carbon Dioxide 31 H (22-30) mmol/L BUN 18 H (7-17) mg/dL Glucose 117 H (74-99) mg/dL AST 38 H (14-36) U/L Chest x-ray: report reviewed Thrombosis Risk Factor Assmnt - DVT/VTE Prophylaxis DVT/VTE Prophylaxis: Pharmacologic Prophylaxis ordered - Choose All That Apply Each Factor Represents 1 point: Abnormal pulmonary function (COPD), Varicose veins Other Risk Factors: Yes Each Risk Factor Represents 3 Points: Age 75 years or older Other congenital or acquired thrombophilia - If yes, enter type in comment: No Thrombosis Risk Factor Assessment Total Risk Factor Score: 5 Thrombosis Risk Factor Assessment Level: High Risk Assessment and Plan Assessment: Left shoulder/scapular pain - Consult ortho - continue home norco/baclofen - add lidocaine gel - ACS ruled out with 2 negative troponin, negative lexiscan 09/19/18 A fib - pradaxa - tele - verapamil and nadolol COPD without exacerbation - Continue home bronchdilators HTN - HCTZ, BB, ACEI, verapamil HLD - statin The patient is placed in observation with an anticipated less than 2 midnight stay for evaluation of left shoulder pain. Surrogate decision-maker: Grand daughter CODE STATUS:Full DVT prophylaxis: Heparin Discussed with: patient, nursing, granddaughter Anticipated discharge date: in AM Anticipated discharge place: home A total of 45 minutes was spent on the care of this complex patient more than 50% of the time was spent in counseling and care coordination.
--- NOTE | 2019-12-03 18:57 | XR ---
EXAMINATION TYPE: XR shoulder complete LT DATE OF EXAM: 12/03/2019 COMPARISON: NONE HISTORY: Shoulder pain. TECHNIQUE: 3 views FINDINGS: I see no fracture nor dislocation. There is some spurring at the AC joint. There is mild sp urring at the glenohumeral joint. Scapula is intact. There is no evidence of focal bone destruction. IMPRESSION: Mild osteoarthritis. No fracture seen.
[2019-12-03] MEDS: ALBUTEROL NEBULIZED 2.5 MG/3 ML INHALATION SCH (19:49)
[2019-12-03] MEDS: SYMBICORT 160-4.5 MCG INHALER INHALATION SCH (19:55)
[2019-12-03] MEDS: LIDOCAINE 5% PATCH TOPICAL SCH (20:41)
[2019-12-03] MEDS: VERAPAMIL SR 240 MG TABLET.ER PO SCH (20:43)
[2019-12-03] MEDS: DABIGATRAN 150 MG CAP PO SCH (20:43)
[2019-12-03] MEDS: HYDROcodone/APAP 7.5-325MG 1 EACH TAB PO PRN (20:50)
[2019-12-03] MEDS ORDERED: LATANOPROST 0.005% OPHTH DROPS 2.5 ML BTL BOTH EYES SCH (21:00)
[2019-12-04] MEDS: HEPARIN SODIUM,PORCINE 5,000 UNIT/ML 1 ML VIAL SQ SCH ×2 (00:33→08:23)
[2019-12-04 04:37] LABS: Cholesterol 167 mg/dL (<200); HDL Cholesterol 64 mg/dL (40-60); LDL Cholesterol,Calculated 86 mg/dL (0-99); Triglycerides 86 mg/dL (<150)
[2019-12-04] MEDS ORDERED: PANTOPRAZOLE 40 MG TABLET PO SCH (07:30)
[2019-12-04] MEDS: SYMBICORT 160-4.5 MCG INHALER INHALATION SCH (07:52)
[2019-12-04] MEDS: ALBUTEROL NEBULIZED 2.5 MG/3 ML INHALATION SCH (07:52)
[2019-12-04 08:08] VITALS: PULSE 62
[2019-12-04] MEDS: DABIGATRAN 150 MG CAP PO SCH (08:25)
[2019-12-04] MEDS: VERAPAMIL SR 240 MG TABLET.ER PO SCH (08:25)
[2019-12-04] MEDS: LIDOCAINE 5% PATCH TOPICAL SCH (08:29)
[2019-12-04] MEDS: HYDROcodone/APAP 7.5-325MG 1 EACH TAB PO PRN (08:34)
[2019-12-04] MEDS ORDERED: lisinopriL 10 MG TAB PO SCH (09:00)
[2019-12-04] MEDS ORDERED: ASPIRIN 325 MG TAB PO SCH (09:00)
[2019-12-04] MEDS ORDERED: hydroCHLOROthiazide 12.5 MG CAP PO SCH (09:00)
[2019-12-04] MEDS ORDERED: PRAVASTATIN SODIUM 40 MG TAB PO SCH (09:00)
--- NOTE | 2019-12-04 09:14 | P.CNOR ---
History of Present Illness - [facility] Consult date: 12/04/19 Consult reason: joint pain (Left shoulder pain) History of present illness: Patient is a 74-year-old female with a history of atrial fibrillation, COPD, hypertension, dyslipidemia, and prior GI bleed who presented to the hospital with complaints of left shoulder and arm pain. In the ER she underwent an extensive evaluation. Her vital signs are within normal limits on admission. EKG did not reveal any acute ischemia. Laboratory analysis demonstrated a mildly elevated INR at 1.3, carbon dioxide 31, glucose 117, and initial troponin was negative. Repeat three-hour troponin was also negative. There is concern for possible cardiac etiology and request was made for observation. Patient seen and examined at bedside. The patient has significant hearing deficit. Per her medical record, the last 7 days she has reported some left shoulder/scapular pain with intermittent pain down into her left arm. She denies any numbness or tingling. No overt chest discomfort. No nausea, lightheadedness, syncope, or presyncope. She denies any changes in her chronic shortness of breath. She denies any pain up into her neck or into her jaw. She states that this lasted about 30 seconds and occurs every 5-6 minutes. She denies any activities that make the pain better or worse, no medication has relieved the pain. She denies doing any unusual activities. She did not take any extra doses of medication or missed any doses of medications. Her medications have not recently changed. On exam today she states that her pain is primarily in the posterior aspect of her shoulder. They have applied a Lidoderm patch to the area which has improved her symptoms. Past Medical History Past Medical History: Atrial Fibrillation, Asthma, COPD, GERD/Reflux, GI Bleed, Hyperlipidemia, Hypertension, Osteoarthritis (OA), Pneumonia, Vascular Disorder Additional Past Medical History / Comment(s): Pt is very hard of hearing, she wears a hearing aide and normally reads lips-she reads and writes. Other Hx: Bronchitis, gastric ulcer, diverticular disease, lower GI bleed/AV malformation with ablation, benign colon polyp, borderline hyperlipidemia, arthritis mostly in back, slight bilateral glaucoma, varicosities. History of Any Multi-Drug Resistant Organisms: None Reported Past Surgical History: Adenoidectomy, Appendectomy, Heart Catheterization, Hysterectomy, Tonsillectomy, Tubal Ligation Additional Past Surgical History / Comment(s): Colonoscopy/benign polypectomy/AV malformation ablation, bilateral cataract removals Past Anesthesia/Blood Transfusion Reactions: No Reported Reaction Smoking Status: Second hand smoke exposure Past Alcohol Use History: None Reported - Past Family History Father Family Medical History: COPD Additional Family Medical History / Comment(s): EMPHYSEMA Mother Family Medical History: Osteoarthritis (OA) Additional Family Medical History / Comment(s): EMPHYSEMA, BOWEL OBSTRUCTION/COLOSTOMY Medications and Allergies Home Medications Medication Instructions Recorded Confirmed Type Baclofen [Lioresal] 10 mg PO TID PRN 07/20/15 12/03/19 History Dabigatran [Pradaxa] 150 mg PO BID 07/20/15 12/03/19 History Hydrocodone/Acetaminophen [[place] 1 tab PO QID PRN 07/20/15 12/03/19 History 7.5-325] Moexipril [Univasc] 7.5 mg PO DAILY 07/20/15 12/03/19 History Pravastatin Sodium [Pravachol] 40 mg PO DAILY 07/20/15 12/03/19 History Verapamil HCl [Verapamil ER] 240 mg PO BID 04/11/16 12/03/19 History Latanoprost [Xalatan 0.005%] 2 drop BOTH EYES HS 10/15/16 12/03/19 History Nadolol 40 mg PO DAILY 10/15/16 12/03/19 History Omeprazole [PriLOSEC] 20 mg PO DAILY 01/16/17 12/03/19 History Albuterol Nebulized [Ventolin 2.5 mg INHALATION RT-TID 08/11/17 12/03/19 History Nebulized] Budesonide/Formoterol Fumarate 2 puff INHALATION RT-BID 08/11/17 12/03/19 History [Symbicort 160-4.5 Mcg Inhaler] Hydrochlorothiazide 12.5 mg PO DAILY 03/14/19 12/03/19 History [hydroCHLOROthiazide] Diclofenac Sodium Gel [Voltaren 1 applic TOPICAL BID PRN 06/18/19 12/03/19 History Gel] Albuterol Inhaler [Ventolin Hfa 1 puff INHALATION RT-QID PRN 12/03/19 12/03/19 History Inhaler] Allergies Allergy/AdvReac Type Severity Reaction Status Date / Time No Known Allergies Allergy Verified 12/03/19 14:37 Physical Examination This is a pleasant 74-year-old female in no acute distress. She is significant only hearing-impaired. Exam of the left shoulder reveals full forward flexion, abduction, internal and external rotation with no apparent pain. There is tenderness with palpation about the left periscapular region. There is mild pain with cervical rotation at the extreme. Neurovascular status the upper extremities grossly intact. Results X-rays of the left shoulder reveal moderate degenerative arthritis of the glenohumeral joint and significant arthritis to the acromial clavicular joint. No acute fractures identified. - Labs Labs: Abnormal Lab Results - Last 24 Hours (Table) 12/03/19 12/03/19 12/03/19 Range/Units 03:45 13:03 13:03 MCV 100.4 H (80.0-100.0) fL PT 13.1 H (9.0-12.0) sec INR 1.3 H (<1.2) APTT 46.9 H (22.0-30.0) sec Carbon Dioxide (22-30) mmol/L BUN (7-17) mg/dL Glucose (74-99) mg/dL AST (14-36) U/L HDL Cholesterol 64 H (40-60) mg/dL 12/03/19 Range/Units 13:03 MCV (80.0-100.0) fL PT (9.0-12.0) sec INR (<1.2) APTT (22.0-30.0) sec Carbon Dioxide 31 H (22-30) mmol/L BUN 18 H (7-17) mg/dL Glucose 117 H (74-99) mg/dL AST 38 H (14-36) U/L HDL Cholesterol (40-60) mg/dL H & H 12/03/19 Range/Units 13:03 Hgb 13.5 (11.4-16.0) gm/dL Hct 42.1 (34.0-46.0) % Coagulation 12/03/19 Range/Units 13:03 INR 1.3 H (<1.2) Result Diagrams: 12/03/19 13:03 12/03/19 13:03 Assessment and Plan (1) Cervical radiculopathy Current Visit: Yes Status: Acute Code(s): M54.12 - RADICULOPATHY, CERVICAL REGION SNOMED Code(s): 86182377 (2) Left shoulder pain Current Visit: Yes Status: Acute Code(s): M25.512 - PAIN IN LEFT SHOULDER SNOMED Code(s): 45592764 (3) Chest pain Current Visit: Yes Status: Acute Code(s): R07.9 - CHEST PAIN, UNSPECIFIED SNOMED Code(s): 69648296 Plan: The clinical findings are discussed with the patient. She has had improvement with the Lidoderm patch to the scapular area. I feel that her pain is more cervical-related. I've ordered a soft cervical collar for comfort. She is to follow-up with our group as needed.
[2019-12-04 09:15] VITALS: BP 160/83; RESP 18; TEMP 97.5
--- NOTE | 2019-12-04 22:16 | P.DS ---
Providers Date of admission: 12/03/19 14:21 Expected date of discharge: 12/04/19 Attending physician: Mateo Proctor MD Consults: 12/03/19 16:42 Consult Physician Routine Consulting Provider: Kenn Roque Consult Reason/Comments: Left shoulder pain Do you want consulting provider notified?: Yes [facility] [place] [facility] Course: Discharge Diagnosis: Left shoulder pain Cervical radiculopathy A. fib COPD without exacerbation Hypertension Dyslipidemia Hospital Course: Patient is a 74-year-old female with a history of atrial fibrillation, COPD, hypertension, dyslipidemia, and prior GI bleed who presented to the hospital with complaints of left shoulder and arm pain. In the ER she underwent an ex tensive evaluation. Her vital signs are within normal limits on admission. EKG did not reveal any acute ischemia. Laboratory analysis demonstrated a mildly elevated INR at 1.3, carbon dioxide 31, glucose 117, and initial troponin was negative. Repeat three-hour troponin was also negative. There is concern for possible cardiac etiology and request was made for observation. Lidoderm patch wasn't started secondary to pain. She was monitored on telemetry which showed no acute abnormalities. On the morning of 12/03 her shoulder pain was resolved with Lidoderm patch. She was seen by orthopedic surgery who felt she likely had a cervical arthropathy. They recommended soft collar. Patient will continue with [id number] Lidoderm patches and diclofenac gel. She'll follow up with orthopedic surgery and her primary care physician. Discharged home in stable condition. Patient seen and examined at bedside. Pain is resolved, feeling much better, no nausea, no vomiting Vital signs reviewed and stable. General: non toxic, no distress, appears at stated age Derm: warm, dry Head: atraumatic, normocephalic, symmetric, heart appearing Eyes: EOMI, no lid lag, anicteric sclera Mouth: no lip lesion, mucus membranes moist Cardiovascular: S1S2 reg, no murmur, positive posterior tibial pulse bilateral, Lungs: CTA bilateral, no rhonchi, no rales , no accessory muscle use Abdominal: soft, nontender to palpation, no guarding, no appreciable organomegaly Ext: no gross muscle atrophy, no edema, no contractures Neuro: CN II-XI grossly intact, no focal neuro deficits Psych: Alert, oriented, appropriate affect A total of 25 minutes of time were spent preparing this complex discharge summary . Plan - Discharge Summary Discharge Rx Participant: No New Discharge Prescriptions: New Lidocaine 5% Oint [Xylocaine 5% Oint] 1 applic TOPICAL QID PRN 14 Days #1 tube PRN Reason: Pain Continue Pravastatin Sodium [Pravachol] 40 mg PO DAILY Hydrocodone/Acetaminophen [[place] 7.5-325] 1 tab PO QID PRN PRN Reason: Pain Baclofen [Lioresal] 10 mg PO TID PRN PRN Reason: Muscle Spasm Dabigatran [Pradaxa] 150 mg PO BID Moexipril [Univasc] 7.5 mg PO DAILY Verapamil HCl [Verapamil ER] 240 mg PO BID Nadolol 40 mg PO DAILY Latanoprost [Xalatan 0.005%] 2 drop BOTH EYES HS Omeprazole [PriLOSEC] 20 mg PO DAILY Budesonide/Formoterol Fumarate [Symbicort 160-4.5 Mcg Inhaler] 2 puff INHALATION RT-BID Albuterol Nebulized [Ventolin Nebulized] 2.5 mg INHALATION RT-TID Hydrochlorothiazide [hydroCHLOROthiazide] 12.5 mg PO DAILY Albuterol Inhaler [Ventolin Hfa Inhaler] 1 puff INHALATION RT-QID PRN PRN Reason: Shortness Of Breath Diclofenac Sodium Gel [Voltaren Gel] 1 applic TOPICAL BID PRN #1 tube PRN Reason: Pain Discharge Medication List Baclofen [Lioresal] 10 mg PO TID PRN 07/20/15 [History] Dabigatran [Pradaxa] 150 mg PO BID 07/20/15 [History] Hydrocodone/Acetaminophen [[place] 7.5-325] 1 tab PO QID PRN 07/20/15 [History] Moexipril [Univasc] 7.5 mg PO DAILY 07/20/15 [History] Pravastatin Sodium [Pravachol] 40 mg PO DAILY 07/20/15 [History] Verapamil HCl [Verapamil ER] 240 mg PO BID 04/11/16 [History] Latanoprost [Xalatan 0.005%] 2 drop BOTH EYES HS 10/15/16 [History] Nadolol 40 mg PO DAILY 10/15/16 [History] Omeprazole [PriLOSEC] 20 mg PO DAILY 01/16/17 [History] Albuterol Nebulized [Ventolin Nebulized] 2.5 mg INHALATION RT-TID 08/11/17 [History] Budesonide/Formoterol Fumarate [Symbicort 160-4.5 Mcg Inhaler] 2 puff INHALATION RT-BID 08/11/17 [History] Hydrochlorothiazide [hydroCHLOROthiazide] 12.5 mg PO DAILY 03/14/19 [History] Albuterol Inhaler [Ventolin Hfa Inhaler] 1 puff INHALATION RT-QID PRN 12/03/19 [History] Diclofenac Sodium Gel [Voltaren Gel] 1 applic TOPICAL BID PRN #1 tube 12/04/19 [Rx] Lidocaine 5% Oint [Xylocaine 5% Oint] 1 applic TOPICAL QID PRN 14 Days #1 tube 12/04/19 [Rx] Follow up Appointment(s)/Referral(s): Akshat Cortez MD [STAFF PHYSICIAN] - 12/07/19 1:15 pm Faizan Estrella MD [Primary Care Provider] - 12/11/19 9:00 am Patient Instructions/Handouts: Chest Pain (GEN), Soft Cervical Collar (ED), Cervical Radiculopathy (GEN) Activity/Diet/Wound Care/Special Instructions: Activity: as tolerated Diet: heart healthy Special Instructions: Soft cervical collar as needed for comfort Can apply lidocaine ointment as needed up to 4 times daily for comfort Can also use Diclofinac Gel for pain as needed to see if this helps more Do not combine both gels. One or the other at a time. Discharge Disposition: HOME SELF-CARE
== END 2019-12-04 10:49 | disposition home or self-care (01) ==
LOC: EC 12:15 → 3NCARDOBS 14:21
PROVIDERS: ADMIT Family Medicine; ATTEND Family Medicine
DX: M25.512 Pain in left shoulder (principal); E78.5 Hyperlipidemia, unspecified; H91.90 Unspecified hearing loss, unspecified ear; I10 Essential (primary) hypertension; I48.91 Unspecified atrial fibrillation; J44.9 Chronic obstructive pulmonary disease, unspecified; M47.22 Other spondylosis with radiculopathy, cervical region; Z77.22 Contact with and (suspected) exposure to environmental tobacco smoke (acute) (chronic); Z79.01 Long term (current) use of anticoagulants; Z79.51 Long term (current) use of inhaled steroids; Z79.899 Other long term (current) drug therapy; Z82.5 Family history of asthma and other chronic lower respiratory diseases; Z87.11 Personal history of peptic ulcer disease; Z87.19 Personal history of other diseases of the digestive system; Z87.891 Personal history of nicotine dependence; Z90.710 Acquired absence of both cervix and uterus; Z87.01 Personal history of pneumonia (recurrent); Z98.42 Cataract extraction status, left eye; Z98.41 Cataract extraction status, right eye
CPT/HCPCS: 96372; 93005 ×2; 99285; 36415; 94640 ×4; 97161; 80061; 80053; 83735; 84484; 85025; 85610; 85730; 73030; 71046; G0378 ×2; J1644

== ENCOUNTER 2020-02-13 07:12 | Observation (INO) | payer MEDICARE, OTHER ==
[2020-02-13] MEDS ORDERED: PANTOPRAZOLE 40 MG/10 ML VIAL IVP STA (07:32)
--- NOTE | 2020-02-13 07:51 | ED ---
General Adult HPI - General Chief complaint: GI Bleed Stated complaint: rectal bleeding Time Seen by Provider: 02/13/20 07:16 Source: patient, RN notes reviewed Mode of arrival: wheelchair Limitations: no limitations - History of Present Illness Initial comments: Patient is a pleasant 74-year-old female presenting to the emergency Department with rectal bleeding. Onset of symptoms was throughout the night. Patient is now having blood associated with this. This is bright red blood and some thick loose stools. Patient does have a history of similar symptoms previously however is unclear why. No nausea vomiting. No fever. No abdominal pain. No rectal pain or mass. - Related Data Home Medications Medication Instructions Recorded Confirmed Baclofen [Lioresal] 10 mg PO TID PRN 07/20/15 12/03/19 Dabigatran [Pradaxa] 150 mg PO BID 07/20/15 12/03/19 Hydrocodone/Acetaminophen [[place] 1 tab PO QID PRN 07/20/15 12/03/19 7.5-325] Moexipril [Univasc] 7.5 mg PO DAILY 07/20/15 12/03/19 Pravastatin Sodium [Pravachol] 40 mg PO DAILY 07/20/15 12/03/19 Verapamil HCl [Verapamil ER] 240 mg PO BID 04/11/16 12/03/19 Latanoprost [Xalatan 0.005%] 2 drop BOTH EYES HS 10/15/16 12/03/19 Nadolol 40 mg PO DAILY 10/15/16 12/03/19 Omeprazole [PriLOSEC] 20 mg PO DAILY 01/16/17 12/03/19 Albuterol Nebulized [Ventolin 2.5 mg INHALATION RT-TID 08/11/17 12/03/19 Nebulized] Budesonide/Formoterol Fumarate 2 puff INHALATION RT-BID 08/11/17 12/03/19 [Symbicort 160-4.5 Mcg Inhaler] Hydrochlorothiazide 12.5 mg PO DAILY 03/14/19 12/03/19 [hydroCHLOROthiazide] Albuterol Inhaler [Ventolin Hfa 1 puff INHALATION RT-QID PRN 12/03/19 12/03/19 Inhaler] Previous Rx's Medication Instructions Recorded Diclofenac Sodium Gel [Voltaren 1 applic TOPICAL BID PRN #1 tube 12/04/19 Gel] Lidocaine 5% Oint [Xylocaine 5% 1 applic TOPICAL QID PRN 14 Days 12/04/19 Oint] #1 tube Allergies Allergy/AdvReac Type Severity Reaction Status Date / Time No Known Allergies Allergy Verified 02/13/20 07:25 Review of Systems ROS Statement: Those systems with pertinent positive or pertinent negative responses have been documented in the HPI. ROS Other: All systems not noted in ROS Statement are negative. Constitutional: Denies: fever Eyes: Denies: eye pain ENT: Denies: ear pain Respiratory: Denies: cough Cardiovascular: Denies: chest pain Endocrine: Denies: fatigue Gastrointestinal: Reports: hematochezia. Denies: abdominal pain, nausea, vomiting Genitourinary: Denies: dysuria Musculoskeletal: Denies: back pain Skin: Denies: rash Neurological: Denies: weakness Past Medical History Past Medical History: Atrial Fibrillation, Asthma, COPD, GERD/Reflux, GI Bleed, Hyperlipidemia, Hypertension, Osteoarthritis (OA), Pneumonia, Vascular Disorder Additional Past Medical History / Comment(s): Pt is very hard of hearing, she wears a hearing aide and normally reads lips-she reads and writes. Other Hx: Bronchitis, gastric ulcer, diverticular disease, lower GI bleed/AV malformation with ablation, benign colon polyp, borderline hyperlipidemia, arthritis mostly in back, slight bilateral glaucoma, varicosities. History of Any Multi-Drug Resistant Organisms: None Reported Past Surgical History: Adenoidectomy, Appendectomy, Heart Catheterization, Hysterectomy, Tonsillectomy, Tubal Ligation Additional Past Surgical History / Comment(s): Colonoscopy/benign polypectomy/AV malformation ablation, bilateral cataract removals Past Anesthesia/Blood Transfusion Reactions: No Reported Reaction Past Psychological History: No Psychological Hx Reported Smoking Status: Never smoker, Second hand smoke exposure Past Alcohol Use History: None Reported Past Drug Use History: None Reported - Past Family History Father Family Medical History: COPD Additional Family Medical History / Comment(s): EMPHYSEMA Mother Family Medical History: Osteoarthritis (OA) Additional Family Medical History / Comment(s): EMPHYSEMA, BOWEL OBSTRUCTION/COLOSTOMY General Exam Limitations: no limitations General appearance: alert, in no apparent distress Head exam: Present: normocephalic Eye exam: Present: normal appearance Neck exam: Present: normal inspection Respiratory exam: Present: normal lung sounds bilaterally Cardiovascular Exam: Present: regular rate, normal rhythm GI/Abdominal exam: Present: soft. Absent: tenderness, pulsatile mass Rectal exam: Present: normal inspection. Absent: bloody stool Extremities exam: Present: normal inspection Neurological exam: Present: alert Psychiatric exam: Present: normal affect, normal mood Skin exam: Present: normal color Course Vital Signs 02/13/20 07:22 Temperature 97.4 F L Pulse Rate 72 Respiratory 18 Rate Blood Pressure 195/101 O2 Sat by Pulse 97 Oximetry Medical Decision Making - Medical Decision Making Patient reevaluated and updated. Case discussed with Dr. Waller, covering for Dr. Pelaez, who covers for Dr. Leon and will admit. - Lab Data Result diagrams: 02/13/20 07:55 Lab Results 02/13/20 02/13/20 Range/Units 07:55 07:55 WBC 7.3 (3.8-10.6) k/uL RBC 4.28 (3.80-5.40) m/uL Hgb 13.9 (11.4-16.0) gm/dL Hct 43.7 (34.0-46.0) % MCV 102.0 H (80.0-100.0) fL MCH 32.3 (25.0-35.0) pg MCHC 31.7 (31.0-37.0) g/dL RDW 13.2 (11.5-15.5) % Plt Count 218 (150-450) k/uL Neutrophils % 51 % Lymphocytes % 28 % Monocytes % 8 % Eosinophils % 10 % Basophils % 1 % Neutrophils # 3.7 (1.3-7.7) k/uL Lymphocytes # 2.0 (1.0-4.8) k/uL Monocytes # 0.6 (0-1.0) k/uL Eosinophils # 0.7 (0-0.7) k/uL Basophils # 0.1 (0-0.2) k/uL Macrocytosis Slight Stool Occult Blood Positive H (Negative) Disposition Clinical Impression: Lower gastrointestinal hemorrhage Disposition: ADMITTED IP TO THIS HOSP Is patient prescribed a controlled substance at d/c from ED?: No Referrals: Faizan Estrella MD [Primary Care Provider] - 1-2 days Decision Time: 08:08
[2020-02-13 08:00] LABS: Basophils # (A) 0.1 k/uL (0-0.2); Basophils % (A) 1 %; Eosinophils # (A) 0.7 k/uL (0-0.7); Eosinophils % (A) 10 %; HCT 43.7 % (34.0-46.0); HGB 13.9 gm/dL (11.4-16.0); Lymphocytes % (A) 28 %; MCH 32.3 pg (25.0-35.0); MCHC 31.7 g/dL (31.0-37.0); Macrocytosis Slight; Mean Platelet Volume 7.9; Monocytes # (A) 0.6 k/uL (0-1.0); Monocytes % (A) 8 %; Neutrophils # (A) 3.7 k/uL (1.3-7.7); Neutrophils % (A) 51 %; Platelet Count 218 k/uL (150-450); RBC 4.28 m/uL (3.80-5.40); RDW 13.2 % (11.5-15.5); WBC 7.3 k/uL (3.8-10.6)
[2020-02-13] MEDS ORDERED: NALOXONE 0.4 MG/ML 1 ML VIAL IV PRN (08:08)
[2020-02-13 08:10] LABS: Albumin 3.9 g/dL (3.5-5.0); Calcium 10.3 mg/dL (8.4-10.2); INR 1.2 (<1.2); Prothrombin Time 12.2 sec (9.0-12.0); Total Bilirubin 0.8 mg/dL (0.2-1.3); Total Protein 6.8 g/dL (6.3-8.2)
[2020-02-13 08:11] LABS: Partial Thromboplastin Time 40.4 sec (22.0-30.0)
[2020-02-13 08:22] LABS: Potassium 3.1 mmol/L (3.5-5.1)
[2020-02-13] MEDS: SODIUM CHLORIDE 0.9% 1,000 ML IV SCH ×2 (08:35→21:47)
[2020-02-13] MEDS ORDERED: POTASSIUM CHLORIDE 20 MEQ in WATER FOR INJECTION 1 100ML.BAG IVPB STA (09:17)
[2020-02-13] MEDS ORDERED: ALBUTEROL HFA INHALER INHALATION PRN (09:19)
[2020-02-13] MEDS: PRAVASTATIN SODIUM 40 MG TAB PO SCH (09:54)
[2020-02-13] MEDS: VERAPAMIL SR 240 MG TABLET.ER PO SCH ×2 (09:54→21:44)
[2020-02-13] MEDS: lisinopriL 10 MG TAB PO SCH (09:54)
--- NOTE | 2020-02-13 10:10 | P.HPIM ---
History of Present Illness H&P Date: 02/13/20 Chief Complaint: Rectal bleed This is a 74-year-old female with past medical history noted below significant for chronic atrial fibrillation on anticoagulation with Pradaxa and a history of GI bleed who presented to the hospital with rectal bleed. Patient said that her symptoms started last night and she had probably 3 bowel movement that she describes as loose and associated with bright red blood that filled the toilet. Patient denies any abdominal pain. Her last bowel movement was the day before and he was normal. Patient denies fevers or chills. She had similar presentation in April where she had a colonoscopy showing both internal and external hemorrhoids with AVM noted in the sigmoid colon known status post ablation as well as a polypectomy. Patient was evaluated in the ER was found to be hemodynamically stable. Hemoglobin appears to be stable as well. She was placed on observation for further management. Review of Systems Review of system: 14 points review of systems were obtained and were negative except to what were mentioned in the HPI. Past Medical History Past Medical History: Atrial Fibrillation, Asthma, COPD, GERD/Reflux, GI Bleed, Hyperlipidemia, Hypertension, Osteoarthritis (OA), Pneumonia, Vascular Disorder Additional Past Medical History / Comment(s): Pt is very hard of hearing, she wears a hearing aide and normally reads lips-she reads and writes. Other Hx: Bronchitis, gastric ulcer, diverticular disease, lower GI bleed/AV malformation with ablation, benign colon polyp, borderline hyperlipidemia, arthritis mostly in back, slight bilateral glaucoma, varicosities. History of Any Multi-Drug Resistant Organisms: None Reported Past Surgical History: Adenoidectomy, Appendectomy, Heart Catheterization, Hysterectomy, Tonsillectomy, Tubal Ligation Additional Past Surgical History / Comment(s): Colonoscopy/benign polypectomy/AV malformation ablation, bilateral cataract removals Past Anesthesia/Blood Transfusion Reactions: No Reported Reaction Past Psychological History: No Psychological Hx Reported Additional Psychological History / Comment(s): PT LIVES ALONE IN [facility]. SHE IS HEARING IMPAIRED. SHE HAS PULL CORDS IN HER HOME. SHE USES NO ASSISTIVE DEVICE. SHE DRIVES OCCASIONALLY. HER GRANDDAUGHTER KVNG VISITS DAILY.. Smoking Status: Never smoker, Second hand smoke exposure Past Alcohol Use History: None Reported Past Drug Use History: None Reported - Past Family History Father Family Medical History: COPD Additional Family Medical History / Comment(s): EMPHYSEMA Mother Family Medical History: Osteoarthritis (OA) Additional Family Medical History / Comment(s): EMPHYSEMA, BOWEL OBSTRUCTION/COLOSTOMY Medications and Allergies Home Medications Medication Instructions Recorded Confirmed Type Baclofen [Lioresal] 10 mg PO TID PRN 07/20/15 02/13/20 History Dabigatran [Pradaxa] 150 mg PO BID 07/20/15 02/13/20 History Hydrocodone/Acetaminophen [[place] 1 tab PO QID PRN 07/20/15 02/13/20 History 7.5-325] Moexipril [Univasc] 7.5 mg PO DAILY 07/20/15 02/13/20 History Pravastatin Sodium [Pravachol] 40 mg PO DAILY 07/20/15 02/13/20 History Verapamil HCl [Verapamil ER] 240 mg PO BID 04/11/16 02/13/20 History Latanoprost [Xalatan 0.005%] 2 drop BOTH EYES HS 10/15/16 02/13/20 History Nadolol 40 mg PO DAILY 10/15/16 02/13/20 History Omeprazole [PriLOSEC] 20 mg PO DAILY 01/16/17 02/13/20 History Albuterol Nebulized [Ventolin 2.5 mg INHALATION RT-TID 08/11/17 02/13/20 History Nebulized] Budesonide/Formoterol Fumarate 1 puff INHALATION RT-BID 08/11/17 02/13/20 History [Symbicort 160-4.5 Mcg Inhaler] Hydrochlorothiazide 12.5 mg PO DAILY 03/14/19 02/13/20 History [hydroCHLOROthiazide] Albuterol Inhaler [Ventolin Hfa 1 puff INHALATION RT-QID PRN 12/03/19 02/13/20 History Inhaler] Allergies Allergy/AdvReac Type Severity Reaction Status Date / Time No Known Allergies Allergy Verified 02/13/20 08:41 Physical Exam Vitals: Vital Signs Temp Pulse Pulse Resp BP BP Pulse Ox 02/13/20 09:15 97.4 F L 73 16 165/80 95 02/13/20 09:13 73 16 165/80 95 02/13/20 09:00 97.8 F 68 14 199/90 95 02/13/20 08:35 69 16 166/86 95 10/24/20 08:24 97.8 F 68 14 199/90 95 02/13/20 08:20 71 16 190/95 95 02/13/20 07:22 97.4 F L 72 18 195/101 97 Intake and Output 02/12/20 02/13/20 02/13/20 22:59 06:59 14:59 Other: Voiding Method Toilet # Voids 1 Weight 55.338 kg General: The patient is awake and alert, in no distress Eye: there is normal conjunctiva bilaterally. Neck: The neck is supple, there is no JVD. Cardiovascular: Normal S1-S2, no S3-S4, no murmurs. Respiratory: Lungs clear to auscultation bilaterally Gastrointestinal: Abdomen is soft, nontender Musculoskeletal: There is no pedal edema. Neurological:. Speech is normal. Skin: Skin is warm and dry Results CBC & Chem 7: 02/13/20 07:55 02/13/20 07:55 Labs: Abnormal Lab Results - Last 24 Hours (Table) 02/13/20 02/13/20 02/13/20 Range/Units 07:55 07:55 07:55 MCV 102.0 H (80.0-100.0) fL PT 12.2 H (9.0-12.0) sec INR 1.2 H (<1.2) APTT 40.4 H (22.0-30.0) sec Potassium (3.5-5.1) mmol/L Carbon Dioxide (22-30) mmol/L BUN (7-17) mg/dL Glucose (74-99) mg/dL Calcium (8.4-10.2) mg/dL Stool Occult Blood Positive H (Negative) 02/13/20 Range/Units 07:55 MCV (80.0-100.0) fL PT (9.0-12.0) sec INR (<1.2) APTT (22.0-30.0) sec Potassium 3.1 L (3.5-5.1) mmol/L Carbon Dioxide 36 H (22-30) mmol/L BUN 20 H (7-17) mg/dL Glucose 115 H (74-99) mg/dL Calcium 10.3 H (8.4-10.2) mg/dL Stool Occult Blood (Negative) Thrombosis Risk Factor Assmnt - Choose All That Apply Each Risk Factor Represents 3 Points: Age 75 years or older Thrombosis Risk Factor Assessment Total Risk Factor Score: 3 Thrombosis Risk Factor Assessment Level: Moderate Risk Assessment and Plan Assessment: 1. Rectal bleed, possibly secondary to known hemorrhoid versus recurrent AVM. Continue clear liquids for now. Repeat CBC to monitor hemoglobin. Gen. surgery consulted for further evaluation. Colonoscopy done in April of this year showed internal and external grade 3 hemorrhoids, sigmoid AVM status post ablation, and a splenic flexure polyp status post polypectomy 2. Hypokalemia, replacement ordered. Recheck BMP and magnesium in a.m. 3. Essential hypertension, blood pressure not well controlled. Resume home medication and continue to monitor closely 4. Chronic atrial fibrillation on anticoagulation with Pradaxa. Hold anticoagulation for now given GI bleed presentation 5. Chronic medical problems, underlying COPD, with no evidence of exacerbation. Hyperlipidemia. Chronic arthritis Today, I reviewed her medication list and lab work results. 20 mEq potassium chloride IV 1. Continue IV fluid hydration with normal saline at 75 mL per hour. GI prophylaxis with IV Protonix 40 mg daily. Continue to monitor CBC and transfuse as needed for hemoglobin less than 8. The patient is placed in observation with an anticipated less than 2 midnight stay for evaluation of the medical problems noted above. CODE STATUS: Full code Anticipated discharge date: To be determined based on clinical course Anticipated discharge place: Home A total of 45 minutes was spent on the care of this complex patient more than 50% of the time was spent in counseling and care coordination.
[2020-02-13] MEDS: ALBUTEROL NEBULIZED 2.5 MG/3 ML INHALATION SCH ×2 (11:59→19:42)
--- NOTE | 2020-02-13 14:12 | P.GSCN ---
History of Present Illness Consult date: 02/13/20 History of present illness: CHIEF COMPLAINT: Hematochezia HISTORY OF PRESENT ILLNESS: The patient is a 74-year-old female well known to me for pre-existing history of GI bleed. She is on chronic blood thinners. Last colonoscopy 10 months, April 2019 with arteriovenous malformation identified in the colon. Last hospitalization for GI bleed April 2019. She now presents with recurrent GI bleed. Last colonoscopy included removal of inflammatory polyp. She reports having an episode of constipation in the last 2 days with tenesmus followed by blood tinged stools. Yesterday no blood in stools and today, she has blood in her stools. PAST MEDICAL HISTORY: See list and reviewed PAST SURGICAL HISTORY: See list and reviewed MEDICATIONS: See list and reviewed ALLERGIES: See list and reviewed SOCIAL HISTORY: See list and reviewed FAMILY HISTORY: See list and reviewed REVIEW OF ORGAN SYSTEMS: CONSTITUTIONAL: No fevers or chills. No recent weight loss. EYES: Has glaucoma. No glasses. HEENT: Has difficulties with hearing. No nosebleeds. No difficulty swallowing. RESPIRATORY: Denies pneumonia. Has troubles with breathing or dyspnea on ex ertion. Has COPD CARDIOVASCULAR: Denies any chest pain, palpitations, or recent heart attacks. Has hyperlipidemia. History of arrhythmia. Has hypertension. GASTROINTESTINAL: Denies fatty food intolerance. History of blood in stools. Has gastroesophageal reflux disease. History of gastric ulcers GENITOURINARY: Denies any blood in urine or increased urinary frequency. NEUROLOGICAL: Denies any numbness or tingling along the distal extremities. No seizure disorders or headaches. MUSCULOSKELETAL: Has back pain, stiffness or joint arthritis. SKIN: No current skin cancer. No rash. PSYCHIATRIC: Denies current depression or suicidal thoughts. ENDOCRINE: Denies current thyroid disorders. Denies any blood sugar glucose intolerance. HEME/LYMPHATIC: Denies any lumps and bumps around the neck. No recent deep venous thrombosis. On chronic blood thinners. ALLERGY/IMMUNOLOGY: No immunoglobulin therapy. No immune deficiencies. BREAST: Denies current breast lumps, pain or nipple discharge. PHYSICAL EXAM: VITALS: Reviewed CONSTITUTIONAL: Well developed and in no acute distress. EYES: Conjuctivae without sclera icterus. Pupils are equally round and reactive to light. Extraocular movements grossly intact. HEAD, EARS, NOSE, THROAT: Moist buccal mucosa. Head is atraumatic, normo cephalic. Reads lips for hearing impaired. No nasal drainage. NECK: Supple. No JV distention. No thyroidomegaly. RESPIRATORY: Non-labored respirations and equal bilateral excursions. No gross wheezes. CARDIOVASCULAR: Irregular rate. Irregular rhythm. Palpable 2+ radial pulses. ABDOMEN: Soft. Non-tender. Nondistended. LYMPH: No neck lymphadenopathy. No axillary lymphadenopathy. MUSCULOSKELETAL: Nail and fingers with good capillary refill. SKIN: Warm and well perfused with good skin turgor. NEUROLOGIC: Cranial nerves II through XII grossly intact. Sensation upper and extremities intact. No focal or lateralizing signs. PSYCH: Appropriate affect. Alert and oriented to person, place and time. Displays appropriate insight. CLINCAL LABS: Reviewed. Hemoglobin 13.9 on admission, stable at 13.5 from previous admissions. RECORDS: previous old records reviewed colonoscopy April 2019 with inflammatory polyp and AV malformation ablated from hospitalization for GI bleed ASSESSMENT: 1. Gastrointestinal bleed, recurrent 2. Chronic blood thinners 3. Atrial fibrillation 4. Arteriovenous malformations of the colon 5. History of gastric ulcers PLAN: 1. Recommend temporarily discontinuing blood thinners. 2. Will proceed with upper and lower endoscopy for GI bleed work-up 3. Monitor Hgb Thank you for this kind consultation. Past Medical History Past Medical History: Atrial Fibrillation, Asthma, COPD, GERD/Reflux, GI Bleed, Hyperlipidemia, Hypertension, Osteoarthritis (OA), Pneumonia, Vascular Disorder Additional Past Medical History / Comment(s): Pt is very hard of hearing, she wears a hearing aide and normally reads lips-she reads and writes. Other Hx: Bronchitis, gastric ulcer, diverticular disease, lower GI bleed/AV malformation with ablation, benign colon polyp, borderline hyperlipidemia, arthritis mostly in back, slight bilateral glaucoma, varicosities. History of Any Multi-Drug Resistant Organisms: None Reported Past Surgical History: Adenoidectomy, Appendectomy, Heart Catheterization, Hysterectomy, Tonsillectomy, Tubal Ligation Additional Past Surgical History / Comment(s): Colonoscopy/benign polypectomy/AV malformation ablation, bilateral cataract removals Past Anesthesia/Blood Transfusion Reactions: No Reported Reaction Past Psychological History: No Psychological Hx Reported Additional Psychological History / Comment(s): PT LIVES ALONE IN [place]. SHE IS HEARING IMPAIRED. SHE HAS PULL CORDS IN HER HOME. SHE USES NO ASSISTIVE DEVICE. SHE DRIVES OCCASIONALLY. HER GRANDDAUGHTER KVNG VISITS DAILY.. Smoking Status: Never smoker, Second hand smoke exposure Past Alcohol Use History: None Reported Past Drug Use History: None Reported - Past Family History Father Family Medical History: COPD Additional Family Medical History / Comment(s): EMPHYSEMA Mother Family Medical History: Osteoarthritis (OA) Additional Family Medical History / Comment(s): EMPHYSEMA, BOWEL OBSTRUCTION/COLOSTOMY Medications and Allergies Home Medications Medication Instructions Recorded Confirmed Type Baclofen [Lioresal] 10 mg PO TID PRN 07/20/15 02/13/20 History Dabigatran [Pradaxa] 150 mg PO BID 07/20/15 02/13/20 History Hydrocodone/Acetaminophen [[place] 1 tab PO QID PRN 07/20/15 02/13/20 History 7.5-325] Moexipril [Univasc] 7.5 mg PO DAILY 07/20/15 02/13/20 History Pravastatin Sodium [Pravachol] 40 mg PO DAILY 07/20/15 02/13/20 History Verapamil HCl [Verapamil ER] 240 mg PO BID 04/11/16 02/13/20 History Latanoprost [Xalatan 0.005%] 2 drop BOTH EYES HS 10/15/16 02/13/20 History Nadolol 40 mg PO DAILY 10/15/16 02/13/20 History Omeprazole [PriLOSEC] 20 mg PO DAILY 01/16/17 02/13/20 History Albuterol Nebulized [Ventolin 2.5 mg INHALATION RT-TID 08/11/17 02/13/20 History Nebulized] Budesonide/Formoterol Fumarate 1 puff INHALATION RT-BID 08/11/17 02/13/20 History [Symbicort 160-4.5 Mcg Inhaler] Hydrochlorothiazide 12.5 mg PO DAILY 03/14/19 02/13/20 History [hydroCHLOROthiazide] Albuterol Inhaler [Ventolin Hfa 1 puff INHALATION RT-QID PRN 12/03/19 02/13/20 History Inhaler] Allergies Allergy/AdvReac Type Severity Reaction Status Date / Time No Known Allergies Allergy Verified 02/13/20 08:41 Surgical - Exam Vital Signs Temp Pulse Resp BP Pulse Ox 97.4 F L 72 18 195/101 97 02/13/20 07:22 02/13/20 07:22 02/13/20 07:22 02/13/20 07:22 02/13/20 07:22 Results - Labs 02/13/20 07:55 02/13/20 07:55 Abnormal Lab Results - Last 24 Hours (Table) 02/13/20 02/13/20 02/13/20 Range/Units 07:55 07:55 07:55 MCV 102.0 H (80.0-100.0) fL PT 12.2 H (9.0-12.0) sec INR 1.2 H (<1.2) APTT 40.4 H (22.0-30.0) sec Potassium (3.5-5.1) mmol/L Carbon Dioxide (22-30) mmol/L BUN (7-17) mg/dL Glucose (74-99) mg/dL Calcium (8.4-10.2) mg/dL Stool Occult Blood Positive H (Negative) 02/13/20 Range/Units 07:55 MCV (80.0-100.0) fL PT (9.0-12.0) sec INR (<1.2) APTT (22.0-30.0) sec Potassium 3.1 L (3.5-5.1) mmol/L Carbon Dioxide 36 H (22-30) mmol/L BUN 20 H (7-17) mg/dL Glucose 115 H (74-99) mg/dL Calcium 10.3 H (8.4-10.2) mg/dL Stool Occult Blood (Negative) Diabetes panel 02/13/20 Range/Units 07:55 Sodium 142 (137-145) mmol/L Potassium 3.1 L (3.5-5.1) mmol/L Chloride 101 (98-107) mmol/L Carbon Dioxide 36 H (22-30) mmol/L BUN 20 H (7-17) mg/dL Creatinine 0.84 (0.52-1.04) mg/dL Glucose 115 H (74-99) mg/dL Calcium 10.3 H (8.4-10.2) mg/dL AST 27 (14-36) U/L ALT 14 (4-34) U/L Alkaline Phosphatase 66 (38-126) U/L Total Protein 6.8 (6.3-8.2) g/dL Albumin 3.9 (3.5-5.0) g/dL Calcium panel 02/13/20 Range/Units 07:55 Calcium 10.3 H (8.4-10.2) mg/dL Albumin 3.9 (3.5-5.0) g/dL Pituitary panel 02/13/20 Range/Units 07:55 Sodium 142 (137-145) mmol/L Potassium 3.1 L (3.5-5.1) mmol/L Chloride 101 (98-107) mmol/L Carbon Dioxide 36 H (22-30) mmol/L BUN 20 H (7-17) mg/dL Creatinine 0.84 (0.52-1.04) mg/dL Glucose 115 H (74-99) mg/dL Calcium 10.3 H (8.4-10.2) mg/dL Adrenal panel 02/13/20 Range/Units 07:55 Sodium 142 (137-145) mmol/L Potassium 3.1 L (3.5-5.1) mmol/L Chloride 101 (98-107) mmol/L Carbon Dioxide 36 H (22-30) mmol/L BUN 20 H (7-17) mg/dL Creatinine 0.84 (0.52-1.04) mg/dL Glucose 115 H (74-99) mg/dL Calcium 10.3 H (8.4-10.2) mg/dL Total Bilirubin 0.8 (0.2-1.3) mg/dL AST 27 (14-36) U/L ALT 14 (4-34) U/L Alkaline Phosphatase 66 (38-126) U/L Total Protein 6.8 (6.3-8.2) g/dL Albumin 3.9 (3.5-5.0) g/dL Assessment and Plan (1) Lower gastrointestinal hemorrhage Current Visit: Yes Status: Acute Code(s): K92.2 - GASTROINTESTINAL HEMORRHAGE, UNSPECIFIED SNOMED Code(s): 05331878 (2) AV malformation of gastrointestinal tract Current Visit: No Status: Acute Code(s): K55.20 - ANGIODYSPLASIA OF COLON WITHOUT HEMORRHAGE SNOMED Code(s): 426747351 (3) AVM (arteriovenous malformation) of colon with hemorrhage Current Visit: No Status: Acute Code(s): K55.21 - ANGIODYSPLASIA OF COLON WITH HEMORRHAGE SNOMED Code(s): 768253841 (4) Anticoagulant adverse reaction Current Visit: No Status: Acute Code(s): T45.515A - ADVERSE EFFECT OF ANTICOAGULANTS, INITIAL ENCOUNTER SNOMED Code(s): 116807171
[2020-02-13] MEDS: BACLOFEN 10 MG TAB PO PRN ×2 (16:22→22:42)
[2020-02-13] MEDS: HYDROcodone/APAP 7.5-325MG 1 EACH TAB PO PRN ×2 (16:22→22:41)
[2020-02-13 17:29] LABS: Basophils # (A) 0.1 k/uL (0-0.2); Basophils % (A) 1 %; Eosinophils # (A) 0.6 k/uL (0-0.7); Eosinophils % (A) 7 %; HCT 43.7 % (34.0-46.0); HGB 13.8 gm/dL (11.4-16.0); Lymphocytes # (A) 1.9 k/uL (1.0-4.8); Lymphocytes % (A) 23 %; MCH 32.3 pg (25.0-35.0); MCHC 31.6 g/dL (31.0-37.0); MCV 102.5 fL (80.0-100.0); Macrocytosis Slight; Mean Platelet Volume 8.2; Monocytes # (A) 0.5 k/uL (0-1.0); Monocytes % (A) 6 %; Neutrophils # (A) 5.1 k/uL (1.3-7.7); Neutrophils % (A) 61 %; Platelet Count 231 k/uL (150-450); RBC 4.27 m/uL (3.80-5.40); RDW 13.2 % (11.5-15.5); WBC 8.4 k/uL (3.8-10.6)
[2020-02-13] MEDS: SYMBICORT 160-4.5 MCG INHALER INHALATION SCH (19:42)
[2020-02-13] MEDS: LATANOPROST 0.005% OPHTH DROPS 2.5 ML BTL BOTH EYES SCH (21:43)
[2020-02-14] MEDS ORDERED: POLYETHYLENE GLYCOL LYTES SOLN 4,000 ML SOLN.RECON PO ONE (06:00)
[2020-02-14] MEDS: HYDROcodone/APAP 7.5-325MG 1 EACH TAB PO PRN ×2 (06:26→17:02)
[2020-02-14] MEDS: BACLOFEN 10 MG TAB PO PRN ×2 (06:26→17:02)
[2020-02-14] MEDS: SYMBICORT 160-4.5 MCG INHALER INHALATION SCH ×2 (07:26→21:36)
[2020-02-14] MEDS: ALBUTEROL NEBULIZED 2.5 MG/3 ML INHALATION SCH ×3 (07:26→21:40)
[2020-02-14 07:45] LABS: Calcium 10.5 mg/dL (8.4-10.2); Magnesium 1.5 mg/dL (1.6-2.3); Potassium 3.5 mmol/L (3.5-5.1)
[2020-02-14] MEDS: VERAPAMIL SR 240 MG TABLET.ER PO SCH ×2 (07:54→20:59)
[2020-02-14 07:55] LABS: Basophils % (A) 1 %; Eosinophils # (A) 0.7 k/uL (0-0.7); Eosinophils % (A) 10 %; HCT 45.4 % (34.0-46.0); HGB 14.2 gm/dL (11.4-16.0); Lymphocytes # (A) 2.3 k/uL (1.0-4.8); Lymphocytes % (A) 33 %; MCH 32.7 pg (25.0-35.0); MCHC 31.4 g/dL (31.0-37.0); MCV 104.3 fL (80.0-100.0); Macrocytosis Slight; Mean Platelet Volume 8.3; Monocytes # (A) 0.6 k/uL (0-1.0); Monocytes % (A) 8 %; Neutrophils % (A) 44 %; Platelet Count 228 k/uL (150-450); RBC 4.35 m/uL (3.80-5.40); RDW 13.6 % (11.5-15.5); WBC 6.8 k/uL (3.8-10.6)
[2020-02-14] MEDS: PANTOPRAZOLE 40 MG/10 ML VIAL IV SCH (07:55)
[2020-02-14] MEDS: hydroCHLOROthiazide 12.5 MG CAP PO SCH (07:55)
[2020-02-14] MEDS: lisinopriL 10 MG TAB PO SCH ×2 (07:55→20:59)
[2020-02-14] MEDS: SODIUM CHLORIDE 0.9% 1,000 ML IV SCH (07:58)
--- NOTE | 2020-02-14 12:22 | P.PN ---
Subjective Progress Note Date: 02/14/20 CHIEF COMPLAINT: Hematochezia HISTORY OF PRESENT ILLNESS: The patient is a 74-year-old female who presents with GI bleed. She is on chronic blood thinners. She reports abdominal cramps on liquid diet. No moderate blood in stools. REVIEW OF ORGAN SYSTEMS: CONSTITUTIONAL: No fevers or chills. RESPIRATORY: Denies current shortness of breath CARDIOVASCULAR: Denies any chest pain. PHYSICAL EXAM: VITALS: Reviewed CONSTITUTIONAL: Well developed and in no acute distress. EYES: Conjuctivae without sclera icterus. Pupils are equally round and reactive to light. Extraocular movements grossly intact. HEAD, EARS, NOSE, THROAT: Moist buccal mucosa. Head is atraumatic, normocephalic. Hard of hearing. No nasal drainage. RESPIRATORY: Non-labored respirations and equal bilateral excursions. No gross wheezes. CARDIOVASCULAR: Irregular rate. Irregular rhythm. Palpable 2+ radial pulses. ABDOMEN: Soft. Non-tender. Nondistended. MUSCULOSKELETAL: No clubbing or cyanosis. SKIN: Warm and well perfused with good skin turgor. NEUROLOGIC: Cranial nerves II through XII grossly intact. Sensation upper and extremities intact. No focal or lateralizing signs. PSYCH: Appropriate affect. Alert and oriented to person, place and time. Displays appropriate insight. CLINCAL LABS: Reviewed. Hemoglobin 13.9 on admission, now 14.2 ASSESSMENT: 1. Gastrointestinal bleed, recurrent 2. Chronic blood thinners 3. Atrial fibrillation 4. Arteriovenous malformations of the colon 5. History of gastric ulcers PLAN: 1. Recommend upper and lower endoscopy for abdominal pain with GI bleed 2. Additionally, may benefit from Watchman's procedure to come off blood thinners as she has recurrent bleeds. Objective - Vital Signs Vital signs: Vital Signs Temp 97.6 F 02/14/20 07:59 Pulse 72 02/14/20 11:21 Resp 16 02/14/20 07:59 BP 174/91 02/14/20 10:25 Pulse Ox 97 02/14/20 07:59 Intake & Output 02/13/20 02/14/20 02/14/20 18:59 06:59 18:59 Weight 55.338 kg Other: Voiding Method Toilet Toilet # Voids 2 1 2 - Labs CBC & Chem 7: 02/14/20 07:13 02/14/20 07:13 Labs: Abnormal Lab Results - Last 24 Hours (Table) 02/13/20 02/14/20 02/14/20 Range/Units 16:39 07:13 07:13 MCV 102.5 H 104.3 H (80.0-100.0) fL Chloride 97 L (98-107) mmol/L Carbon Dioxide 40 H (22-30) mmol/L Glucose 101 H (74-99) mg/dL Calcium 10.5 H (8.4-10.2) mg/dL Magnesium 1.5 L (1.6-2.3) mg/dL Assessment and Plan (1) Lower gastrointestinal hemorrhage Current Visit: Yes Status: Acute Code(s): K92.2 - GASTROINTESTINAL HEMORRHAGE, UNSPECIFIED SNOMED Code(s): 05524493 (2) AV malformation of gastrointestinal tract Current Visit: No Status: Acute Code(s): K55.20 - ANGIODYSPLASIA OF COLON WITHOUT HEMORRHAGE SNOMED Code(s): 202389867 (3) AVM (arteriovenous malformation) of colon with hemorrhage Current Visit: No Status: Acute Code(s): K55.21 - ANGIODYSPLASIA OF COLON WITH HEMORRHAGE SNOMED Code(s): 500984469 (4) Anticoagulant adverse reaction Current Visit: No Status: Acute Code(s): T45.515A - ADVERSE EFFECT OF ANTICOAGULANTS, INITIAL ENCOUNTER SNOMED Code(s): 748491951
[2020-02-14] MEDS ORDERED: hydrALAZINE HCL 20 MG/ML 1 ML VIAL IVP STA (13:31)
--- NOTE | 2020-02-14 13:34 | P.PN ---
Subjective Progress Note Date: 02/14/20 Patient is doing fairly well today. Hemoglobin is stable. She had a small bowel movement with no blood. Her blood pressure was noted to be elevated today. Objective - Vital Signs Vital signs: Vital Signs Temp 97.6 F 02/14/20 07:59 Pulse 72 02/14/20 11:21 Resp 16 02/14/20 07:59 BP 174/91 02/14/20 10:25 Pulse Ox 97 02/14/20 07:59 Intake & Output 02/13/20 02/14/20 02/14/20 18:59 06:59 18:59 Weight 55.338 kg Other: Voiding Method Toilet Toilet # Voids 2 1 2 - Exam General: The patient is awake and alert, in no distress Eye: there is normal conjunctiva bilaterally. Neck: The neck is supple, there is no JVD. Cardiovascular: Normal S1-S2, no S3-S4, no murmurs. Respiratory: Lungs clear to auscultation bilaterally Gastrointestinal: Abdomen is soft, nontender Musculoskeletal: There is no pedal edema. Neurological:. Speech is normal. Skin: Skin is warm and dry - Labs CBC & Chem 7: 02/14/20 07:13 02/14/20 07:13 Labs: Abnormal Lab Results - Last 24 Hours (Table) 02/13/20 02/14/20 02/14/20 Range/Units 16:39 07:13 07:13 MCV 102.5 H 104.3 H (80.0-100.0) fL Chloride 97 L (98-107) mmol/L Carbon Dioxide 40 H (22-30) mmol/L Glucose 101 H (74-99) mg/dL Calcium 10.5 H (8.4-10.2) mg/dL Magnesium 1.5 L (1.6-2.3) mg/dL Assessment and Plan Assessment: 1. Rectal bleed, possibly secondary to known hemorrhoid versus recurrent AVM. Seen and evaluated by general surgery. Scheduled for upper and lower endoscopy tomorrow. Continue clear liquids for now. Repeat CBC to monitor hemoglobin. Colonoscopy done in April of this year showed internal and external grade 3 hemorrhoids, sigmoid AVM status post ablation, and a splenic flexure polyp stat us post polypectomy 2. Hypokalemia and hypomagnesemia, replacement ordered. Recheck lab work in t he morning. 3. Essential hypertension, blood pressure not well controlled. Increase lisinopril dose to 10 mg twice daily. Lentigoes IV hydralazine 5 mg now 4. Chronic atrial fibrillation on anticoagulation with Pradaxa. Hold anticoagulation for now given GI bleed presentation 5. Chronic medical problems, underlying COPD, with no evidence of exacerbation. Hyperlipidemia. Chronic arthritis Today, I reviewed her medication list and lab work results. 2 g of magnesium sulfate IV 1. Continue IV fluid hydration with normal saline at 75 mL per hour. GI prophylaxis with IV Protonix 40 mg daily. Hemoglobin stable.
[2020-02-14] MEDS: MAGNESIUM SULFATE-D5W PMX 1 GM in DEXTROSE/WATER 1 100ML.BAG IVPB SCH ×2 (13:54→15:14)
[2020-02-14] MEDS: LATANOPROST 0.005% OPHTH DROPS 2.5 ML BTL BOTH EYES SCH (20:58)
[2020-02-15 00:59] LABS: HCT 42.9 % (34.0-46.0); MCH 33.3 pg (25.0-35.0); MCHC 32.5 g/dL (31.0-37.0); MCV 102.4 fL (80.0-100.0); Macrocytosis Slight; Mean Platelet Volume 8.3; Platelet Count 212 k/uL (150-450); RBC 4.19 m/uL (3.80-5.40); RDW 13.3 % (11.5-15.5); WBC 8.5 k/uL (3.8-10.6)
[2020-02-15] MEDS: HYDROcodone/APAP 7.5-325MG 1 EACH TAB PO PRN ×2 (03:14→09:08)
[2020-02-15] MEDS: BACLOFEN 10 MG TAB PO PRN ×2 (03:16→09:09)
[2020-02-15] MEDS: SODIUM CHLORIDE 0.9% 1,000 ML IV SCH (03:17)
[2020-02-15] MEDS: ALBUTEROL NEBULIZED 2.5 MG/3 ML INHALATION SCH ×2 (08:03→12:26)
[2020-02-15] MEDS: SYMBICORT 160-4.5 MCG INHALER INHALATION SCH (08:03)
[2020-02-15 08:24] LABS: Basophils % (A) 1 %; Eosinophils # (A) 0.5 k/uL (0-0.7); Eosinophils % (A) 9 %; HCT 37.8 % (34.0-46.0); HGB 12.6 gm/dL (11.4-16.0); Lymphocytes # (A) 1.5 k/uL (1.0-4.8); Lymphocytes % (A) 27 %; MCH 34.3 pg (25.0-35.0); MCHC 33.3 g/dL (31.0-37.0); MCV 102.9 fL (80.0-100.0); Macrocytosis Slight; Mean Platelet Volume 8.4; Monocytes # (A) 0.4 k/uL (0-1.0); Monocytes % (A) 7 %; Neutrophils # (A) 2.9 k/uL (1.3-7.7); Neutrophils % (A) 53 %; Platelet Count 185 k/uL (150-450); RBC 3.68 m/uL (3.80-5.40); RDW 13.3 % (11.5-15.5); WBC 5.5 k/uL (3.8-10.6)
[2020-02-15 08:47] LABS: African American GFR (CKD) >90 (>60 ml/min/1.73 sqM); Anion Gap 1 mmol/L; Blood Urea Nitrogen 11 mg/dL (7-17); Calcium 9.4 mg/dL (8.4-10.2); Carbon Dioxide 35 mmol/L (22-30); Chloride 103 mmol/L (98-107); Glucose 85 mg/dL (74-99); Magnesium 1.8 mg/dL (1.6-2.3); Non-African American GFR(CKD) 81 (>60 ml/min/1.73 sqM); Potassium 3.2 mmol/L (3.5-5.1); Sodium 139 mmol/L (137-145)
[2020-02-15] MEDS: PANTOPRAZOLE 40 MG/10 ML VIAL IV SCH (08:58)
[2020-02-15] MEDS: lisinopriL 10 MG TAB PO SCH (08:58)
[2020-02-15] MEDS: VERAPAMIL SR 240 MG TABLET.ER PO SCH (08:58)
--- NOTE | 2020-02-15 11:31 | P.PN ---
<Vijaya Cat - Last Filed: 02/15/20 11:22> Subjective Progress Note Date: 02/15/20 CHIEF COMPLAINT: Hematochezia HISTORY OF PRESENT ILLNESS: Patient seen and examined with Dr. Dan. The patient is a 74-year-old female who presents with GI bleed. She is on chronic blood thinners. Patient had fresh blood in her stool last night. She is scheduled for EGD and colonoscopy with Dr. Dan today. She denies any nausea or vomiting. She's afebrile. WBC 5.5 hemoglobin has dropped from 14.0- 12.6 potassium 3.2 magnesium 1.8 PHYSICAL EXAM: VITAL SIGNS: Reviewed GENERAL: Well-developed in no acute distress. HEENT: No sclera icterus. Extraocular movements grossly intact. Moist buccal mucosa. Head is atraumatic, normocephalic. Hears conversational speech. No nasal drainage. NECK: Supple without lymphadenopathy. CHEST: Non-labored respirations and equal bilateral excursions. CARDIOVASCULAR: Palpable 2+ radial pulses. ABDOMEN: Soft. Nondistended. Nontender. MUSCULOSKELETAL: No clubbing or cyanosis. NEUROLOGIC: No focal or lateralizing signs. Cranial nerves II through XII grossly intact. PSYCH: Appropriate affect. Alert and oriented to person, place and time. SKIN: Well perfused. Good skin turgor. ASSESSMENT: 1. Gastrointestinal bleed, recurrent 2. Chronic blood thinners 3. Atrial fibrillation 4. Arteriovenous malformations of the colon 5. History of gastric ulcers 6. Hypokalemia and hypomagnesemia PLAN: -Patient is scheduled for upper and lower endoscopy for abdominal pain with GI bleed today with Dr. Dan -Additionally, may benefit from Watchman's procedure to come off blood thinners as she has recurrent bleeds. -replace magnesium and potassium Physician [employer] Operator note has been reviewed by physician. Signing provider agrees with the documented findings, assessment, and plan of care. Objective - Vital Signs Vital signs: Vital Signs Temp 97.9 F 02/15/20 10:53 Pulse 64 02/15/20 10:53 Resp 14 02/15/20 10:53 BP 142/67 02/15/20 10:53 Pulse Ox 94 L 02/15/20 10:53 Intake & Output 02/14/20 02/15/20 02/15/20 18:59 06:59 18:59 Output Total 500 Balance -500 Weight 54.5 kg Output: Urine 500 Other: Voiding Method Toilet Toilet # Voids 2 2 # Bowel Movements 4 1 - Labs CBC & Chem 7: 02/15/20 07:55 02/15/20 07:55 Labs: Abnormal Lab Results - Last 24 Hours (Table) 02/15/20 02/15/20 02/15/20 Range/Units 00:44 07:55 07:55 RBC 3.68 L (3.80-5.40) m/uL MCV 102.4 H 102.9 H (80.0-100.0) fL Potassium 3.2 L (3.5-5.1) mmol/L Carbon Dioxide 35 H (22-30) mmol/L <Anyi Dan N - Last Filed: 02/15/20 13:21> Subjective As above. Please see official documentation below. CHIEF COMPLAINT: Hematochezia HISTORY OF PRESENT ILLNESS: The patient is a 74-year-old female who presents with GI bleed. She's had multiple episodes while being on anticoagulants. Last night, patient had blood in stools transferring. Denies any this morning. REVIEW OF ORGAN SYSTEMS: CONSTITUTIONAL: No fevers or chills. RESPIRATORY: Denies current shortness of breath CARDIOVASCULAR: Denies any chest pain. PHYSICAL EXAM: VITALS: Reviewed CONSTITUTIONAL: Well developed and in no acute distress. EYES: Conjuctivae without sclera icterus. Extraocular movements grossly intact. HEAD, EARS, NOSE, THROAT: Moist buccal mucosa. Head is atraumatic, normocephalic. Hard of hearing. No nasal drainage. RESPIRATORY: Non-labored respirations and equal bilateral excursions. No gross wheezes. CARDIOVASCULAR: Palpable 2+ radial pulses. ABDOMEN: Soft. Non-tender. Nondistended. MUSCULOSKELETAL: No clubbing or cyanosis. SKIN: Warm and well perfused with good skin turgor. NEUROLOGIC: Cranial nerves II through XII grossly intact. Sensation upper and extremities intact. No focal or lateralizing signs. PSYCH: Appropriate affect. Alert and oriented to person, place and time. Displays appropriate insight. CLINCAL LABS: Reviewed. Hemoglobin 13.9 on admission, 14.2 yesterday down to 12.6. ASSESSMENT: 1. Gastrointestinal bleed, recurrent 2. Chronic blood thinners 3. Atrial fibrillation 4. Arteriovenous malformations of the colon 5. History of gastric ulcers PLAN: 1. Will proceed with upper and lower endoscopy for gastrointestinal bleeding Objective - Vital Signs Vital signs: Vital Signs Temp 97.9 F 02/15/20 12:00 Pulse 64 02/15/20 12:36 Resp 15 02/15/20 12:00 BP 158/70 02/15/20 12:00 Pulse Ox 98 02/15/20 12:00 Intake & Output 02/14/20 02/15/20 02/15/20 18:59 06:59 18:59 Output Total 500 Balance -500 Weight 54.5 kg Output: Urine 500 Other: Voiding Method Toilet Toilet Toilet # Voids 2 2 # Bowel Movements 4 1 - Labs CBC & Chem 7: 02/15/20 07:55 02/15/20 07:55 Labs: Abnormal Lab Results - Last 24 Hours (Table) 02/15/20 02/15/20 02/15/20 Range/Units 00:44 07:55 07:55 RBC 3.68 L (3.80-5.40) m/uL MCV 102.4 H 102.9 H (80.0-100.0) fL Potassium 3.2 L (3.5-5.1) mmol/L Carbon Dioxide 35 H (22-30) mmol/L Assessment and Plan (1) Lower gastrointestinal hemorrhage Current Visit: Yes Status: Acute Code(s): K92.2 - GASTROINTESTINAL HEMORRHAGE, UNSPECIFIED SNOMED Code(s): 32516610 (2) AV malformation of gastrointestinal tract Current Visit: No Status: Acute Code(s): K55.20 - ANGIODYSPLASIA OF COLON WITHOUT HEMORRHAGE SNOMED Code(s): 042851003 (3) AVM (arteriovenous malformation) of colon with hemorrhage Current Visit: No Status: Acute Code(s): K55.21 - ANGIODYSPLASIA OF COLON WITH HEMORRHAGE SNOMED Code(s): 645110950 (4) Anticoagulant adverse reaction Current Visit: No Status: Acute Code(s): T45.515A - ADVERSE EFFECT OF ANTICOAGULANTS, INITIAL ENCOUNTER SNOMED Code(s): 565700097
[2020-02-15] MEDS ORDERED: MAGNESIUM SULFATE-D5W PMX 1 GM in DEXTROSE/WATER 1 100ML.BAG IVPB ONE (12:00)
[2020-02-15] MEDS ORDERED: LIDOCAINE 1% INJ 10MG/ML (20 ML MDV) ONE (12:51)
[2020-02-15] MEDS ORDERED: PROPOFOL 10 MG/ML 20 ML VIAL IV ONE (12:51)
[2020-02-15] MEDS ORDERED: GLYCOPYRROLATE 0.2 MG/ML 2 ML VIAL ONE (12:51)
[2020-02-15 12:57] VITALS: RESP 15
--- NOTE | 2020-02-15 13:02 | P.PCN ---
Date of Procedure: 02/15/20 Description of Procedure: PREOPERATIVE DIAGNOSIS: Gastrointestinal bleed POSTOPERATIVE DIAGNOSIS: Gastritis OPERATION: Esophagogastroduodenoscopy SURGEON: Anyi Dan MD ANESTHESIA: MAC. INDICATIONS: The patient is a 74-year-old female who presents with a history of gastrointestinal bleeding. Benefits and risks of the procedure were described. Informed consent was obtained. DESCRIPTION: The patient was brought into the endoscopy suite and laid in the left lateral decubitus position. An Olympus gastroscope was passed along the posterior oropharynx down to the distal esophagus where the squamocolumnar junction was encountered at 40 cm from the incisors. The stomach was entered and no bile reflux was found. Additional findings are listed below. The first through third portion of the duodenum was examined and unremarkable. Retroflexion of the scope confirmed Hill grade 2 lower esophageal valve. The squamocolumnar junction demonstrated LA grade A erosive esophagitis. The stomach was desufflated. The patient tolerated the procedure well. FINDINGS: Squamocolumnar junction 40 cm from the incisors. Diaphragmatic hiatus at 40 cm. Hill grade 2 lower esophageal valve. LA grade A erosive esophagitis. No active duodenitis. Chronic gastritis No peptic or duodenal ulcers identified RECOMMENDATIONS: Upper endoscopy as needed.
[2020-02-15] MEDS ORDERED: IV FLUID CONTINUATION 1,000 ML IV ONE ×2 (13:06)
--- NOTE | 2020-02-15 13:19 | P.PCN ---
Date of Procedure: 02/15/20 Description of Procedure: PREOPERATIVE DIAGNOSIS: Gastrointestinal bleeding POSTOPERATIVE DIAGNOSIS: Internal hemorrhoid, grade 3 with recent inflammation External hemorrhoids Colon polyps OPERATION: Colonoscopy to the cecum, ileocecal valve and appendiceal orifice. SURGEON: Anyi Dan MD. ANESTHESIA: MAC. INDICATIONS: The patient is a 74-year-old female who presents with gastrointestinal bleeding. She is on anticoagulant. Benefits and risks were described and informed consent was obtained. DESCRIPTION OF PROCEDURE: The patient had undergone GoLYTELY prep. She had been brought into the operating room and laid in the left lateral decubitus position. After adequate intravenous sedation, the rectum was examined with 2% lidocaine jelly. External hemorrhoids were encountered. The rectal tone was within normal limits. No lesions were palpated in the rectal vault. An Olympus colonoscope was advanced until the cecum, ileocecal valve and appendiceal orifice were clearly viewed. The prep was good. No scattered diverticulosis was encountered. A few hyperplastic less than 3 mm polyps were identified along the sigmoid colon. No evidence of focal colitis was found. Retroflexion of the scope demonstrated grade 3 internal hemorrhoids with inflammation. No signs of active bleeding was identified. The colon was desufflated. The patient had tolerated the procedure well. Withdrawal time was over 6 minutes. FINDINGS: Aronchick preparation quality scale 2 (1-5) Internal hemorrhoids, grade 3, with recent inflammation without bleeding External prolapsed hemorrhoids. No arteriovenous malformations. No adenomatous polyps. No focal colitis. RECOMMENDATIONS: Lower endoscopy in 2 years, 2021 for history of colon polyps Recommend alternative to anticoagulants Plan - Discharge Summary New Discharge Prescriptions: No Action Pravastatin Sodium [Pravachol] 40 mg PO DAILY Hydrocodone/Acetaminophen [[place] 7.5-325] 1 tab PO QID PRN PRN Reason: Pain Baclofen [Lioresal] 10 mg PO TID PRN PRN Reason: Muscle Spasm Dabigatran [Pradaxa] 150 mg PO BID Moexipril [Univasc] 7.5 mg PO DAILY Verapamil HCl [Verapamil ER] 240 mg PO BID Nadolol 40 mg PO DAILY Latanoprost [Xalatan 0.005%] 2 drop BOTH EYES HS Omeprazole [PriLOSEC] 20 mg PO DAILY Budesonide/Formoterol Fumarate [Symbicort 160-4.5 Mcg Inhaler] 1 puff INHALATION RT-BID Albuterol Nebulized [Ventolin Nebulized] 2.5 mg INHALATION RT-TID Hydrochlorothiazide [hydroCHLOROthiazide] 12.5 mg PO DAILY Albuterol Inhaler [Ventolin Hfa Inhaler] 1 puff INHALATION RT-QID PRN PRN Reason: Shortness Of Breath Discharge Medication List Baclofen [Lioresal] 10 mg PO TID PRN 07/20/15 [History] Dabigatran [Pradaxa] 150 mg PO BID 07/20/15 [History] Hydrocodone/Acetaminophen [[place] 7.5-325] 1 tab PO QID PRN 07/20/15 [History] Moexipril [Univasc] 7.5 mg PO DAILY 07/20/15 [History] Pravastatin Sodium [Pravachol] 40 mg PO DAILY 07/20/15 [History] Verapamil HCl [Verapamil ER] 240 mg PO BID 04/11/16 [History] Latanoprost [Xalatan 0.005%] 2 drop BOTH EYES HS 10/15/16 [History] Nadolol 40 mg PO DAILY 10/15/16 [History] Omeprazole [PriLOSEC] 20 mg PO DAILY 01/16/17 [History] Albuterol Nebulized [Ventolin Nebulized] 2.5 mg INHALATION RT-TID 08/11/17 [History] Budesonide/Formoterol Fumarate [Symbicort 160-4.5 Mcg Inhaler] 1 puff INHALATION RT-BID 08/11/17 [History] Hydrochlorothiazide [hydroCHLOROthiazide] 12.5 mg PO DAILY 03/14/19 [History] Albuterol Inhaler [Ventolin Hfa Inhaler] 1 puff INHALATION RT-QID PRN 12/03/19 [History] Follow up Appointment(s)/Referral(s): Faizan Estrella MD [Primary Care Provider] - 1-2 days
[2020-02-15] MEDS: POTASSIUM CHLORIDE 10 MEQ in WATER FOR INJECTION 1 100ML.BAG IVPB SCH ×2 (15:39→17:18)
[2020-02-15] MEDS: PRAVASTATIN SODIUM 40 MG TAB PO SCH (15:41)
[2020-02-15] MEDS: hydroCHLOROthiazide 12.5 MG CAP PO SCH (15:41)
--- NOTE | 2020-02-15 16:19 | P.DS ---
Providers Date of admission: 02/13/20 08:09 Expected date of discharge: 02/15/20 Attending physician: Luis Felipe Waller Consults: 02/13/20 08:10 Consult Physician Urgent Consulting Provider: Anyi Dan Consult Reason/Comments: lower gi heorrhage Do you want consulting provider notified?: Yes Primary care physician: [facility] Course: This is a 74-year-old female with past medical history noted below who presented to the emergency room with rectal bleed. Patient was evaluated in the ER and placed on observation for further management of her medical problems noted below. 1. Rectal bleed, resolved. Hemoglobin stable throughout hospital stay. Seen and evaluated by general surgery. She underwent colonoscopy showing evidence of internal and external hemorrhoids with no source of bleeding. Also underwent EGD showing evidence of esophagitis and chronic gastritis. Colonoscopy done in April of this year showed internal and external grade 3 hemorrhoids, sigmoid AVM status post ablation, and a splenic flexure polyp status post polypectomy 2. Hypokalemia and hypomagnesemia, replaced. Started on potassium and magnesium supplement 3. Essential hypertension, blood pressure within acceptable range continue home medications 4. Chronic atrial fibrillation on anticoagulation with Pradaxa. Resume anticoagulation and follow-up with cardiology for consultation for possible watchman device 5. Chronic medical problems, underlying COPD, with no evidence of exacerbation. Hyperlipidemia. Chronic arthritis Patient will be discharged home in a stable condition. For further details about this hospitalization please refer to the electronic chart. Time spent on discharge > 30 minutes including counseling and coordination of Patient Condition at Discharge: Fair Plan - Discharge Summary New Discharge Prescriptions: New Potassium Chloride ER [K-Dur 10] 10 meq PO DAILY #30 tab Magnesium Oxide 400 mg PO DAILY #30 tablet Pantoprazole Sodium [Protonix] 40 mg PO AC-BRKFST #30 tablet.dr Continue Pravastatin Sodium [Pravachol] 40 mg PO DAILY Hydrocodone/Acetaminophen [[place] 7.5-325] 1 tab PO QID PRN PRN Reason: Pain Baclofen [Lioresal] 10 mg PO TID PRN PRN Reason: Muscle Spasm Dabigatran [Pradaxa] 150 mg PO BID Moexipril [Univasc] 7.5 mg PO DAILY Verapamil HCl [Verapamil ER] 240 mg PO BID Nadolol 40 mg PO DAILY Latanoprost [Xalatan 0.005%] 2 drop BOTH EYES HS Budesonide/Formoterol Fumarate [Symbicort 160-4.5 Mcg Inhaler] 1 puff INHALATION RT-BID Albuterol Nebulized [Ventolin Nebulized] 2.5 mg INHALATION RT-TID Hydrochlorothiazide [hydroCHLOROthiazide] 12.5 mg PO DAILY Albuterol Inhaler [Ventolin Hfa Inhaler] 1 puff INHALATION RT-QID PRN PRN Reason: Shortness Of Breath Discontinued Omeprazole [PriLOSEC] 20 mg PO DAILY Discharge Medication List Baclofen [Lioresal] 10 mg PO TID PRN 07/20/15 [History] Dabigatran [Pradaxa] 150 mg PO BID 07/20/15 [History] Hydrocodone/Acetaminophen [[place] 7.5-325] 1 tab PO QID PRN 07/20/15 [History] Moexipril [Univasc] 7.5 mg PO DAILY 07/20/15 [History] Pravastatin Sodium [Pravachol] 40 mg PO DAILY 07/20/15 [History] Verapamil HCl [Verapamil ER] 240 mg PO BID 04/11/16 [History] Latanoprost [Xalatan 0.005%] 2 drop BOTH EYES HS 10/15/16 [History] Nadolol 40 mg PO DAILY 10/15/16 [History] Albuterol Nebulized [Ventolin Nebulized] 2.5 mg INHALATION RT-TID 08/11/17 [History] Budesonide/Formoterol Fumarate [Symbicort 160-4.5 Mcg Inhaler] 1 puff INHALATION RT-BID 08/11/17 [History] Hydrochlorothiazide [hydroCHLOROthiazide] 12.5 mg PO DAILY 03/14/19 [History] Albuterol Inhaler [Ventolin Hfa Inhaler] 1 puff INHALATION RT-QID PRN 12/03/19 [History] Magnesium Oxide 400 mg PO DAILY #30 tablet 02/15/20 [Rx] Pantoprazole Sodium [Protonix] 40 mg PO AC-BRKFST #30 tablet.dr 02/15/20 [Rx] Potassium Chloride ER [K-Dur 10] 10 meq PO DAILY #30 tab 02/15/20 [Rx] Follow up Appointment(s)/Referral(s): Anyi Dan MD [STAFF PHYSICIAN] - 1 Week Faizan Estrella MD [Primary Care Provider] - 1-2 days Patient Instructions/Handouts: Hemorrhoids (DC), Diet for Stomach Ulcers and Gastritis (GEN) Discharge Disposition: HOME SELF-CARE
[2020-02-15 17:04] VITALS: BP 132/60; PULSE 67; TEMP 98
== END 2020-02-15 17:24 | disposition home or self-care (01) ==
LOC: EC 07:12 → 1SOBS 08:09 → 3SCARD 02-15 01:22
PROVIDERS: ADMIT Internal Medicine; ATTEND Internal Medicine
DX: K22.11 Ulcer of esophagus with bleeding (principal); K29.50 Unspecified chronic gastritis without bleeding; K55.20 Angiodysplasia of colon without hemorrhage; K63.5 Polyp of colon; K64.4 Residual hemorrhoidal skin tags; E78.5 Hyperlipidemia, unspecified; E83.42 Hypomagnesemia; K64.2 Third degree hemorrhoids; E87.6 Hypokalemia; H91.90 Unspecified hearing loss, unspecified ear; I10 Essential (primary) hypertension; I48.20 Chronic atrial fibrillation, unspecified; J44.9 Chronic obstructive pulmonary disease, unspecified; K59.00 Constipation, unspecified; M19.90 Unspecified osteoarthritis, unspecified site; Q27.30 Arteriovenous malformation, site unspecified; Z79.01 Long term (current) use of anticoagulants; Z79.51 Long term (current) use of inhaled steroids; Z79.899 Other long term (current) drug therapy; Z82.5 Family history of asthma and other chronic lower respiratory diseases; Z87.11 Personal history of peptic ulcer disease; Z87.19 Personal history of other diseases of the digestive system; Z90.710 Acquired absence of both cervix and uterus
CPT/HCPCS: 96361 ×2; 96365; 96366; 96375 ×2; 96376; 99285; 36415; 94640 ×6; 80053; 80048 ×2; 83735 ×2; 84484; 85025 ×3; 85027; 85610; 85730; 82272; 45378; 43235; G0378 ×4; J0360; J3480 ×2; J2001; J3475 ×2; J2704; C9113 ×3

== ENCOUNTER 2020-04-06 06:44 | Observation (INO) | payer MEDICARE, OTHER ==
[2020-04-06] MEDS ORDERED: SODIUM CHLORIDE 0.9% 1,000 ML IV STA (07:04)
--- NOTE | 2020-04-06 07:07 | ED ---
GI Bleed HPI - General Chief complaint: GI Bleed Stated complaint: Rectal Bleeding Time Seen by Provider: 04/06/20 06:53 Source: patient, RN notes reviewed, old records reviewed Mode of arrival: ambulatory Limitations: no limitations - History of Present Illness Initial comments: Patient is a pleasant 74-year-old female who presents emergency department today with episodes of diarrhea leading to bloody stool. Patient is on pradaxa for blood thinner. Patient reports that she has cramping, abdominal pain prior to the diarrhea but otherwise denies any rectal or abdominal pain currently. Patient states that she has a known history of hemorrhoids that seemed to bleed from time to time with each bowel movement. She reports today she had a heavy b leeding and noted Blood within the Toilet and Continued to Have Bleeding through Her Depends and Paper Towels That She Placed. Patient Arrives to the Emergency Department Stating That She Has No Chest Pain Feels Lightheaded. She States That She Is Tired of Having These Intermittent Bleeding Hemorrhoids. She States That She Did Have a Colonoscopy Completed This Year by Dr. Brewster Which Identified a Hemorrhoid. Patient Denies Any Other Complaints at This Time. - Related Data Home Medications Medication Instructions Recorded Confirmed Baclofen [Lioresal] 10 mg PO TID PRN 07/20/15 04/06/20 Dabigatran [Pradaxa] 150 mg PO BID 07/20/15 04/06/20 Hydrocodone/Acetaminophen [[place] 1 tab PO QID PRN 07/20/15 04/06/20 7.5-325] Moexipril [Univasc] 7.5 mg PO DAILY 07/20/15 04/06/20 Pravastatin Sodium [Pravachol] 40 mg PO DAILY 07/20/15 04/06/20 Latanoprost [Xalatan 0.005%] 1 drop BOTH EYES HS 10/15/16 04/06/20 Nadolol 40 mg PO DAILY 10/15/16 04/06/20 Albuterol Nebulized [Ventolin 2.5 mg INHALATION RT-TID 08/11/17 04/06/20 Nebulized] Budesonide/Formoterol Fumarate 1 puff INHALATION RT-BID 08/11/17 04/06/20 [Symbicort 160-4.5 Mcg Inhaler] Hydrochlorothiazide 12.5 mg PO DAILY 03/14/19 04/06/20 [hydroCHLOROthiazide] Albuterol Inhaler [Ventolin Hfa 1 puff INHALATION RT-QID PRN 12/03/19 04/06/20 Inhaler] Denosumab [Prolia] 60 mg SQ Q180D 04/06/20 04/06/20 Diclofenac Sodium [Voltaren Gel] 2 gram TOPICAL BID PRN 04/06/20 04/06/20 Verapamil HCl [Verapamil ER] 240 mg PO BID 04/06/20 04/06/20 Previous Rx's Medication Instructions Recorded Pantoprazole Sodium [Protonix] 40 mg PO AC-BRKFST #30 tablet. 02/15/20 Potassium Chloride ER [K-Dur 10] 10 meq PO DAILY #30 tab 02/15/20 Magnesium Oxide [Magox 400] 400 mg PO DAILY #60 tablet 03/08/20 Allergies Allergy/AdvReac Type Severity Reaction Status Date / Time No Known Allergies Allergy Verified 04/06/20 08:18 Review of Systems ROS Statement: Those systems with pertinent positive or pertinent negative responses have been documented in the HPI. ROS Other: All systems not noted in ROS Statement are negative. Past Medical History Past Medical History: Atrial Fibrillation, Asthma, COPD, GERD/Reflux, GI Bleed, Hyperlipidemia, Hypertension, Osteoarthritis (OA), Pneumonia, Vascular Disorder Additional Past Medical History / Comment(s): Pt is very hard of hearing, she wears a hearing aide and normally reads lips-she reads and writes. Other Hx: Bronchitis, gastric ulcer, diverticular disease, lower GI bleed/AV malformation with ablation, benign colon polyp, borderline hyperlipidemia, arthritis mostly in back, slight bilateral glaucoma, varicosities. History of Any Multi-Drug Resistant Organisms: None Reported Past Surgical History: Adenoidectomy, Appendectomy, Heart Catheterization, Hyst erectomy, Tonsillectomy, Tubal Ligation Additional Past Surgical History / Comment(s): Colonoscopy/benign polypectomy/AV malformation ablation, bilateral cataract removals Past Anesthesia/Blood Transfusion Reactions: No Reported Reaction Past Psychological History: No Psychological Hx Reported Smoking Status: Never smoker, Second hand smoke exposure Past Alcohol Use History: None Reported Past Drug Use History: None Reported - Past Family History Father Family Medical History: COPD Additional Family Medical History / Comment(s): EMPHYSEMA Mother Family Medical History: Osteoarthritis (OA) Additional Family Medical History / Comment(s): EMPHYSEMA, BOWEL OBSTRUCTION/COLOSTOMY General Exam - General Exam Comments Initial Comments: Pleasant 74-year-old female. Alert and oriented. Limitations: no limitations General appearance: alert, in no apparent distress Head exam: Present: atraumatic, normocephalic, normal inspection Eye exam: Present: normal appearance, PERRL, EOMI. Absent: scleral icterus, conjunctival injection, periorbital swelling ENT exam: Present: normal exam, mucous membranes moist Neck exam: Present: normal inspection. Absent: tenderness, meningismus, lymphadenopathy Respiratory exam: Present: normal lung sounds bilaterally. Absent: respiratory distress, wheezes, rales, rhonchi, stridor Cardiovascular Exam: Present: regular rate, normal rhythm, normal heart sounds. Absent: systolic murmur, diastolic murmur, rubs, gallop, clicks GI/Abdominal exam: Present: soft, normal bowel sounds. Absent: distended, tenderness, guarding, rebound, rigid Rectal exam: Present: heme (+) stool ( is evidence of bright red blood and brief. Evidence of some external hemorrhoids and no active bleeding at this time.), hemorrhoids. Absent: normal inspection Extremities exam: Present: normal inspection Back exam: Present: normal inspection Neurological exam: Present: alert, oriented X3, CN II-XII intact Psychiatric exam: Present: normal affect, normal mood Skin exam: Present: warm, dry, intact, normal color. Absent: rash Course Vital Signs 04/06/20 04/06/20 06:47 07:30 Temperature 98.1 F Pulse Rate 69 59 L Respiratory 18 16 Rate Blood Pressure 164/86 151/72 O2 Sat by Pulse 96 95 Oximetry - Reevaluation(s) Reevaluation #1: 04/06/20 08:31 She did have another bowel movement and some diarrhea with evidence of bright red blood within the toilet. Approximately 20 mL of blood was noted within the toilet. Medical Decision Making - Medical Decision Making 74-year-old female presents emergency department today with episodes of diarrhea then leading to lower GI bleed. She has had previous colonoscopy which shows internal hemorrhoids. When Patient arrived to emergency department she had a saturated brief of bright red blood. On rectal exam seems that the active bleeding had stopped at that time. Her hemoglobin is stable at 14. When Patient was in emergency department she did have another episode of diarrhea and further GI bleeding was noted in the toilet. Patient is unprotected accident. I discussed the case with Dr. Cunningham in concern for patient's lower GI bleeding and being persistent and the amount of blood loss 700 and her brief and at home as well as after a bowel movement here Patient will be admitted at this time with consult to GI. I did discuss the Patient she may need hemorrhoid banding procedure or other methods to control the bleeding hemorrhoids if this truly is the cause for her bleeding. Pt reports she is frustrated and at her wits end with intermittent heavy rectal bleeding through this year. - Lab Data Result diagrams: 04/06/20 07:01 04/06/20 07:01 Lab Results 04/06/20 04/06/20 04/06/20 Range/Units 07:01 07:01 07:01 WBC 10.2 (3.8-10.6) k/uL RBC 4.42 (3.80-5.40) m/uL Hgb 14.1 (11.4-16.0) gm/dL Hct 43.9 (34.0-46.0) % MCV 99.3 (80.0-100.0) fL MCH 31.9 (25.0-35.0) pg MCHC 32.1 (31.0-37.0) g/dL RDW 13.4 (11.5-15.5) % Plt Count 286 (150-450) k/uL MPV 8.5 Neutrophils % 61 % Lymphocytes % 24 % Monocytes % 7 % Eosinophils % 4 % Basophils % 0 % Neutrophils # 6.3 (1.3-7.7) k/uL Lymphocytes # 2.5 (1.0-4.8) k/uL Monocytes # 0.7 (0-1.0) k/uL Eosinophils # 0.4 (0-0.7) k/uL Basophils # 0.0 (0-0.2) k/uL PT 12.1 H (9.0-12.0) sec INR 1.2 H (<1.2) APTT 43.9 H (22.0-30.0) sec Sodium 142 (137-145) mmol/L Potassium 3.1 L (3.5-5.1) mmol/L Chloride 98 (98-107) mmol/L Carbon Dioxide 39 H (22-30) mmol/L Anion Gap 5 mmol/L BUN 22 H (7-17) mg/dL Creatinine 0.84 (0.52-1.04) mg/dL Est GFR (CKD-EPI)AfAm 79 (>60 ml/min/1.73 sqM) Est GFR (CKD-EPI)NonAf 68 (>60 ml/min/1.73 sqM) Glucose 134 H (74-99) mg/dL Calcium 10.2 (8.4-10.2) mg/dL Magnesium 1.5 L (1.6-2.3) mg/dL Total Bilirubin 1.1 (0.2-1.3) mg/dL AST 27 (14-36) U/L ALT 15 (4-34) U/L Alkaline Phosphatase 81 (38-126) U/L Total Protein 6.9 (6.3-8.2) g/dL Albumin 3.9 (3.5-5.0) g/dL Stool Occult Blood (Negative) Blood Type Blood Type Recheck Bld Type Recheck Status Antibody Screen Spec Expiration Date 04/06/20 04/06/20 Range/Units 07:01 08:02 WBC (3.8-10.6) k/uL RBC (3.80-5.40) m/uL Hgb (11.4-16.0) gm/dL Hct (34.0-46.0) % MCV (80.0-100.0) fL MCH (25.0-35.0) pg MCHC (31.0-37.0) g/dL RDW (11.5-15.5) % Plt Count (150-450) k/uL MPV Neutrophils % % Lymphocytes % % Monocytes % % Eosinophils % % Basophils % % Neutrophils # (1.3-7.7) k/uL Lymphocytes # (1.0-4.8) k/uL Monocytes # (0-1.0) k/uL Eosinophils # (0-0.7) k/uL Basophils # (0-0.2) k/uL PT (9.0-12.0) sec INR (<1.2) APTT (22.0-30.0) sec Sodium (137-145) mmol/L Potassium (3.5-5.1) mmol/L Chloride (98-107) mmol/L Carbon Dioxide (22-30) mmol/L Anion Gap mmol/L BUN (7-17) mg/dL Creatinine (0.52-1.04) mg/dL Est GFR (CKD-EPI)AfAm (>60 ml/min/1.73 sqM) Est GFR (CKD-EPI)NonAf (>60 ml/min/1.73 sqM) Glucose (74-99) mg/dL Calcium (8.4-10.2) mg/dL Magnesium (1.6-2.3) mg/dL Total Bilirubin (0.2-1.3) mg/dL AST (14-36) U/L ALT (4-34) U/L Alkaline Phosphatase (38-126) U/L Total Protein (6.3-8.2) g/dL Albumin (3.5-5.0) g/dL Stool Occult Blood Positive H (Negative) Blood Type O Negative Blood Type Recheck O Neg Bld Type Recheck Status No Antibody Screen NEGATIVE Spec Expiration Date 04/09/2020 - 2300 Disposition Clinical Impression: GI bleeding Disposition: ADMITTED IP TO THIS [facility] Condition: Stable Is patient prescribed a controlled substance at d/c from ED?: No Referrals: Faizan Estrella MD [Primary Care Provider] - 1-2 days Time of Disposition: 08:34
[2020-04-06 07:37] LABS: Basophils % (A) 0 %; Eosinophils # (A) 0.4 k/uL (0-0.7); Eosinophils % (A) 4 %; HCT 43.9 % (34.0-46.0); HGB 14.1 gm/dL (11.4-16.0); Lymphocytes # (A) 2.5 k/uL (1.0-4.8); Lymphocytes % (A) 24 %; MCH 31.9 pg (25.0-35.0); MCHC 32.1 g/dL (31.0-37.0); MCV 99.3 fL (80.0-100.0); Mean Platelet Volume 8.5; Monocytes # (A) 0.7 k/uL (0-1.0); Monocytes % (A) 7 %; Neutrophils # (A) 6.3 k/uL (1.3-7.7); Neutrophils % (A) 61 %; Platelet Count 286 k/uL (150-450); RBC 4.42 m/uL (3.80-5.40); RDW 13.4 % (11.5-15.5); WBC 10.2 k/uL (3.8-10.6)
[2020-04-06 07:40] LABS: Albumin 3.9 g/dL (3.5-5.0); Calcium 10.2 mg/dL (8.4-10.2); Magnesium 1.5 mg/dL (1.6-2.3); Potassium 3.1 mmol/L (3.5-5.1); Total Bilirubin 1.1 mg/dL (0.2-1.3); Total Protein 6.9 g/dL (6.3-8.2)
[2020-04-06 07:46] LABS: INR 1.2 (<1.2); Partial Thromboplastin Time 43.9 sec (22.0-30.0); Prothrombin Time 12.1 sec (9.0-12.0)
[2020-04-06] MEDS ORDERED: ACETAMINOPHEN TAB 325 MG TAB PO PRN (08:35)
[2020-04-06] MEDS ORDERED: ONDANSETRON 4 MG/2 ML VIAL IVP PRN (08:35)
[2020-04-06] MEDS ORDERED: MORPHINE SULFATE 4 MG/ML SYRINGE IV PRN (08:35)
[2020-04-06] MEDS ORDERED: NALOXONE 0.4 MG/ML 1 ML VIAL IV PRN (08:35)
[2020-04-06] MEDS ORDERED: HYDROmorphone 0.5 MG/0.5 ML SYRINGE IVP PRN (08:35)
[2020-04-06] MEDS: PANTOPRAZOLE 40 MG/10 ML VIAL IV SCH ×2 (08:43→08:46)
[2020-04-06] MEDS: SODIUM CHLORIDE 0.9% 1,000 ML IV SCH ×2 (08:44→19:50)
[2020-04-06] MEDS ORDERED: ALBUTEROL NEBULIZED 2.5 MG/3 ML INHALATION PRN (10:27)
[2020-04-06] MEDS ORDERED: DICLOFENAC SODIUM GEL 100 GM TUBE TOPICAL PRN (10:27)
[2020-04-06] MEDS: VERAPAMIL SR 240 MG TABLET.ER PO SCH ×2 (10:41→20:51)
[2020-04-06] MEDS: lisinopriL 10 MG TAB PO SCH (10:41)
[2020-04-06] MEDS: PRAVASTATIN SODIUM 40 MG TAB PO SCH (10:41)
[2020-04-06] MEDS: MAGNESIUM OXIDE 400 MG TAB PO SCH (10:41)
[2020-04-06] MEDS: BACLOFEN 10 MG TAB PO PRN ×2 (10:46→20:54)
[2020-04-06] MEDS: HYDROcodone/APAP 7.5-325MG 1 EACH TAB PO PRN ×2 (10:47→20:54)
[2020-04-06] MEDS ORDERED: POTASSIUM CHLORIDE ER 20 MEQ TAB.ER PO STA (11:35)
[2020-04-06] MEDS: MAGNESIUM SULFATE-D5W PMX 1 GM in DEXTROSE/WATER 1 100ML.BAG IVPB SCH ×2 (12:35→12:49)
[2020-04-06 12:46] LABS: Basophils # (A) 0.1 k/uL (0-0.2); Basophils % (A) 1 %; Eosinophils # (A) 0.3 k/uL (0-0.7); Eosinophils % (A) 4 %; HCT 40.9 % (34.0-46.0); HGB 13.6 gm/dL (11.4-16.0); Lymphocytes # (A) 1.9 k/uL (1.0-4.8); Lymphocytes % (A) 22 %; MCH 33.5 pg (25.0-35.0); MCHC 33.2 g/dL (31.0-37.0); MCV 100.9 fL (80.0-100.0); Mean Platelet Volume 8.6; Monocytes # (A) 0.5 k/uL (0-1.0); Monocytes % (A) 6 %; Neutrophils # (A) 5.5 k/uL (1.3-7.7); Neutrophils % (A) 65 %; Platelet Count 240 k/uL (150-450); RBC 4.06 m/uL (3.80-5.40); WBC 8.5 k/uL (3.8-10.6)
--- NOTE | 2020-04-06 13:48 | P.GSCN ---
History of Present Illness Consult date: 04/06/20 History of present illness: CHIEF COMPLAINT: Blood per rectum HISTORY OF PRESENT ILLNESS: This is a 74-year-old female with a known past medical history of hemorrhoids, diverticulosis, atrial fibrillation, asthma, COPD, GERD, hyperlipidemia, hypertension, gastric ulcer and AV malformation with previous ablations. She presents to the emergency room with complaints of rectal bleeding that started yesterday. Patient reports that earlier in the day yesterday she had been having diarrhea and then it progressed to bright red blood in the stools. And now she is having just bright red blood from the rectum. She has had about 3 episodes of blood per rectum over the last year. She is on Pradaxa blood thinner for her atrial fibrillation. She had a colonoscopy in February [address] Dan which had shown internal and external hemorrhoids. Hemoglobin 14.1 on admission. Surgical consult was placed for GI bleed. Patient denies any abdominal pain at this time. She said earlier yesterday she had some abdominal cramping prior to the diarrhea. She denies any nausea or vomiting. Denies any fever, chills or sweats. PAST MEDICAL HISTORY: See list. PAST SURGICAL HISTORY: See list. MEDICATIONS: See list. ALLERGIES: See list. SOCIAL HISTORY: No illicit drug use. REVIEW OF SYSTEMS: CONSTITUTIONAL: Denies fever or chills. HEENT: Denies blurred vision, vision changes, or eye pain. Denies hemoptysis ENDOCRINE: Denies heat or cold intolerance. CARDIOVASCULAR: Denies chest pain or pressure. RESPIRATORY: No shortness of breath. GASTROINTESTINAL: Please refer to HPI NEURO: Denies history of seizures. PSYCH: No depression or suicidal ideation HEMATOLOGIC: Denies bleeding disorders. LYMPHATIC: The patient denies any lumps and bumps around the neck. GENITOURINARY: Denies any blood in urine or increased urinary frequency. MUSCULOSKELETAL: Denies myalgias. Denies joint swelling. Denies decreased range of motion beyond patients baseline. SKIN: Denies pruitis. Denies rash. PHYSICAL EXAM: VITAL SIGNS: Reviewed GENERAL: Well-developed in no acute distress. HEENT: No sclera icterus. Extraocular movements grossly intact. Moist buccal mucosa. Head is atraumatic, normocephalic. Hears conversational speech. No nasal drainage. NECK: Supple without lymphadenopathy. CHEST: Non-labored respirations and equal bilateral excursions. CARDIOVASCULAR: Regular rate with regular rhythm. Palpable 2+ radial pulses. ABDOMEN: Soft. Nondistended. Nontender MUSCULOSKELETAL: No clubbing or cyanosis. NEUROLOGIC: No focal or lateralizing signs. Cranial nerves II through XII grossly intact. PSYCH: Appropriate affect. Alert and oriented to person, place and time. SKIN: Well perfused. Good skin turgor. LABORATORY DATA: WBC 8.5 hemoglobin history from 14.1-13.6 INR 1.2 Potassium 3.1 magnesium 1.5 creatinine 0.84 LFTs normal Stool for occult blood positive IMAGING: ASSESSMENT: 1. Bright red blood per rectum possibly due to aggravation of the hemorrhoids from the diarrhea and being on blood thinner 2. Acute lower GI bleed 3. History of internal and external hemorrhoids noted on colonoscopy on 02/15/2020 4. Prior history of diverticulosis 5. Prior history of GI bleeds 6. Hypokalemia and hypomagnesemia supplement has been ordered. Per nursing staff patient has refused the magnesium replacement PLAN: -No plan for endoscopy -Discontinue the Pradaxa -Recommend alternative to anticoagulants such as the watchman procedure Thank you for this consultation Physician History Teacher note has been reviewed by physician. Signing provider agrees with the documented findings, assessment, and plan of care. Past Medical History Past Medical History: Atrial Fibrillation, Asthma, COPD, GERD/Reflux, GI Bleed, Hyperlipidemia, Hypertension, Osteoarthritis (OA), Pneumonia, Vascular Disorder Additional Past Medical History / Comment(s): Pt is very hard of hearing, she wears a hearing aide and normally reads lips-she reads and writes. Other Hx: Bronchitis, gastric ulcer, diverticular disease, lower GI bleed/AV malformation with ablation, benign colon polyp, borderline hyperlipidemia, arthritis mostly in back, slight bilateral glaucoma, varicosities. History of Any Multi-Drug Resistant Organisms: None Reported Past Surgical History: Adenoidectomy, Appendectomy, Heart Catheterization, Hysterectomy, Tonsillectomy, Tubal Ligation Additional Past Surgical History / Comment(s): Colonoscopy/benign polypectomy/AV malformation ablation, bilateral cataract removals Past Anesthesia/Blood Transfusion Reactions: No Reported Reaction Additional Past Anesthesia/Blood Transfusion Reaction / Comm: never recieved blood before. Past Psychological History: No Psychological Hx Reported Additional Psychological History / Comment(s): PT LIVES ALONE IN [place] SHE IS HEARING IMPAIRED. SHE HAS PULL CORDS IN HER HOME. SHE USES NO ASSISTIVE DEVICE. SHE DRIVES OCCASIONALLY. HER GRANDDAUGHTER KVNG VISITS DAILY.. Smoking Status: Never smoker, Second hand smoke exposure Past Alcohol Use History: None Reported Past Drug Use History: None Reported - Past Family History Father Family Medical History: COPD Additional Family Medical History / Comment(s): EMPHYSEMA Mother Family Medical History: Osteoarthritis (OA) Additional Family Medical History / Comment(s): EMPHYSEMA, BOWEL OBSTRUCTION/COLOSTOMY Medications and Allergies Home Medications Medication Instructions Recorded Confirmed Type Baclofen [Lioresal] 10 mg PO TID PRN 07/20/15 04/06/20 History Dabigatran [Pradaxa] 150 mg PO BID 07/20/15 04/06/20 History Hydrocodone/Acetaminophen [[place] 1 tab PO QID PRN 07/20/15 04/06/20 History 7.5-325] Moexipril [Univasc] 7.5 mg PO DAILY 07/20/15 04/06/20 History Pravastatin Sodium [Pravachol] 40 mg PO DAILY 07/20/15 04/06/20 History Latanoprost [Xalatan 0.005%] 1 drop BOTH EYES HS 10/15/16 04/06/20 History Nadolol 40 mg PO DAILY 10/15/16 04/06/20 History Albuterol Nebulized [Ventolin 2.5 mg INHALATION RT-TID 08/11/17 04/06/20 History Nebulized] Budesonide/Formoterol Fumarate 1 puff INHALATION RT-BID 08/11/17 04/06/20 History [Symbicort 160-4.5 Mcg Inhaler] Hydrochlorothiazide 12.5 mg PO DAILY 03/14/19 04/06/20 History [hydroCHLOROthiazide] Albuterol Inhaler [Ventolin Hfa 1 puff INHALATION RT-QID PRN 12/03/19 04/06/20 History Inhaler] Pantoprazole Sodium [Protonix] 40 mg PO AC-BRKFST #30 tablet.dr 02/15/20 04/06/20 Rx Potassium Chloride ER [K-Dur 10] 10 meq PO DAILY #30 tab 02/15/20 04/06/20 Rx Magnesium Oxide [Magox 400] 400 mg PO DAILY #60 tablet 03/08/20 04/06/20 Rx Denosumab [Prolia] 60 mg SQ Q180D 04/06/20 04/06/20 History Diclofenac Sodium [Voltaren Gel] 2 gram TOPICAL BID PRN 04/06/20 04/06/20 History Verapamil HCl [Verapamil ER] 240 mg PO BID 04/06/20 04/06/20 History Allergies Allergy/AdvReac Type Severity Reaction Status Date / Time No Known Allergies Allergy Verified 04/06/20 08:18 Surgical - Exam Vital Signs Temp Pulse Resp BP Pulse Ox 98.1 F 69 18 164/86 96 04/06/20 06:47 04/06/20 06:47 04/06/20 06:47 04/06/20 06:47 04/06/20 06:47 Results - Labs 04/06/20 11:47 04/06/20 07:01 Abnormal Lab Results - Last 24 Hours (Table) 04/06/20 04/06/20 04/06/20 Range/Units 07:01 07:01 08:02 MCV (80.0-100.0) fL PT 12.1 H (9.0-12.0) sec INR 1.2 H (<1.2) APTT 43.9 H (22.0-30.0) sec Potassium 3.1 L (3.5-5.1) mmol/L Carbon Dioxide 39 H (22-30) mmol/L BUN 22 H (7-17) mg/dL Glucose 134 H (74-99) mg/dL Magnesium 1.5 L (1.6-2.3) mg/dL Stool Occult Blood Positive H (Negative) 04/06/20 Range/Units 11:47 MCV 100.9 H (80.0-100.0) fL PT (9.0-12.0) sec INR (<1.2) APTT (22.0-30.0) sec Potassium (3.5-5.1) mmol/L Carbon Dioxide (22-30) mmol/L BUN (7-17) mg/dL Glucose (74-99) mg/dL Magnesium (1.6-2.3) mg/dL Stool Occult Blood (Negative) Diabetes panel 04/06/20 Range/Units 07:01 Sodium 142 (137-145) mmol/L Potassium 3.1 L (3.5-5.1) mmol/L Chloride 98 (98-107) mmol/L Carbon Dioxide 39 H (22-30) mmol/L BUN 22 H (7-17) mg/dL Creatinine 0.84 (0.52-1.04) mg/dL Glucose 134 H (74-99) mg/dL Calcium 10.2 (8.4-10.2) mg/dL AST 27 (14-36) U/L ALT 15 (4-34) U/L Alkaline Phosphatase 81 (38-126) U/L Total Protein 6.9 (6.3-8.2) g/dL Albumin 3.9 (3.5-5.0) g/dL Calcium panel 04/06/20 Range/Units 07:01 Calcium 10.2 (8.4-10.2) mg/dL Albumin 3.9 (3.5-5.0) g/dL Pituitary panel 04/06/20 Range/Units 07:01 Sodium 142 (137-145) mmol/L Potassium 3.1 L (3.5-5.1) mmol/L Chloride 98 (98-107) mmol/L Carbon Dioxide 39 H (22-30) mmol/L BUN 22 H (7-17) mg/dL Creatinine 0.84 (0.52-1.04) mg/dL Glucose 134 H (74-99) mg/dL Calcium 10.2 (8.4-10.2) mg/dL Adrenal panel 04/06/20 Range/Units 07:01 Sodium 142 (137-145) mmol/L Potassium 3.1 L (3.5-5.1) mmol/L Chloride 98 (98-107) mmol/L Carbon Dioxide 39 H (22-30) mmol/L BUN 22 H (7-17) mg/dL Creatinine 0.84 (0.52-1.04) mg/dL Glucose 134 H (74-99) mg/dL Calcium 10.2 (8.4-10.2) mg/dL Total Bilirubin 1.1 (0.2-1.3) mg/dL AST 27 (14-36) U/L ALT 15 (4-34) U/L Alkaline Phosphatase 81 (38-126) U/L Total Protein 6.9 (6.3-8.2) g/dL Albumin 3.9 (3.5-5.0) g/dL
[2020-04-06] MEDS: SYMBICORT 160-4.5 MCG INHALER INHALATION SCH ×2 (14:35→19:54)
[2020-04-06] MEDS: ALBUTEROL NEBULIZED 2.5 MG/3 ML INHALATION SCH ×2 (15:08→19:51)
--- NOTE | 2020-04-06 19:46 | P.HPIM ---
History of Present Illness H&P Date: 04/06/20 Chief Complaint: Fresh blood per rectum History of presenting complaint: This is a very pleasant 74-year-old patient of Dr. Faizan sepulveda. Chronic stable medical conditions include GERD, hyperlipidemia, hypertension, Colt arthritis, paroxysmal atrial fibrillation, varicose veins, diverticulosis. Patient is very hard of hearing and does lipreading. Patient in the hospital 3 weeks ago. Seen by Dr. Anyi Brewster. Fluoroscopy-showed internal hemorrhoids grade 3 and external prolapsed hemorrhoids. EGD-grade a erosive esophagitis and some chronic gastritis. Patient had some diarrhea yesterday. Early hours of this morning patient noticed fresh blood in the toilet spanned that was splashed. Patient has a picture of the same in a Smart 4. No abdominal pain. No nausea vomiting. No fever no chills. Review of systems: GEN.: None EYES: None HEENT: Hard of hearing NECK: None RESPIRATORY: None CARDIOVASCULAR: None GASTROINTESTINAL: As above GENITOURINARY: None MUSCULOSKELETAL: Joint pains LYMPHATICS: None HEMATOLOGICAL: None PSYCHIATRY: None NEUROLOGICAL: None Past medical history to include: Asthma, GERD, hyperlipidemia, hypertension, osteoarthritis, paroxysmal atrial fibrillation, varicose veins, stomach ulcer, diverticulitis. He switch-itis, gastritis, internal/external hemorrhoids Social history: Does not smoke or drink Cold. Lives alone. Physical examination: VITAL SIGNS: 97.8, 62, 16, 1 36 x 67, 94% room air GENERAL: BMI 22.9, sitting up in bed, comfortable EYES: Pupils equal. Conjunctiva normal. HEENT: External appearance of nose and ears normal, oral cavity grossly normal. Very hard of hearing NECK: JVD not raised; masses not palpable. HEART: First and second heart sounds are normal; no edema. LUNGS: Respiratory rate normal, decreased breaths sounds. ABDOMEN: Soft, nontender, liver spleen not palpable, no masses palpable. PSYCH: Alert and oriented x3; mood and affect normal. MUSCULAR skeletal:: Evidence of OA especially in the hands NEUROLOGICAL: Cranial nerves grossly intact; no facial asymmetry, power and sensation grossly intact. LYMPHATICS: No lymph nodes palpable in the axilla and neck INVESTIGATIONS, reviewed in the clinical context: White count 10.2 hemoglobin 14.1 platelets 280 6 repeat hemoglobin 13.6 potassium 3.1 creatinine 0.84 Assessment: -Acute lower GI bleed that was a "splashed in the chavira" very classical of internal hemorrhoid bleeding. This will typically need a local hemorrhoidal t reatment, so that patient can continue with the more systemic anticoagulation per DEXA. - moderate persistent asthma -GERD -Hyperlipidemia -Essential hypertension -Primary osteoarthritis -Paroxysmal atrial fibrillation currently in sinus rhythm -Esophagitis and gastritis. Plan: We'll prescribe Anusol HC to be used on a regular basis to cut back on hemorrhoidal inflammation. Patient should be able to continue on pradaxa. If there was to be more bleeding then we may consider stopping the same. Past Medical History Past Medical History: Atrial Fibrillation, Asthma, COPD, GERD/Reflux, GI Bleed, Hyperlipidemia, Hypertension, Osteoarthritis (OA), Pneumonia, Vascular Disorder Additional Past Medical History / Comment(s): Pt is very hard of hearing, she wears a hearing aide and normally reads lips-she reads and writes. Other Hx: Bronchitis, gastric ulcer, diverticular disease, lower GI bleed/AV malformation with ablation, benign colon polyp, borderline hyperlipidemia, arthritis mostly in back, slight bilateral glaucoma, varicosities. History of Any Multi-Drug Resistant Organisms: None Reported Past Surgical History: Adenoidectomy, Appendectomy, Heart Catheterization, Hysterectomy, Tonsillectomy, Tubal Ligation Additional Past Surgical History / Comment(s): Colonoscopy/benign polypectomy/AV malformation ablation, bilateral cataract removals Past Anesthesia/Blood Transfusion Reactions: No Reported Reaction Additional Past Anesthesia/Blood Transfusion Reaction / Comment(s): never recieved blood before. Past Psychological History: No Psychological Hx Reported Additional Psychological History / Comment(s): PT LIVES ALONE IN [facility]. SHE IS H EARING IMPAIRED. SHE HAS PULL CORDS IN HER HOME. SHE USES NO ASSISTIVE DEVICE. SHE DRIVES OCCASIONALLY. HER GRANDDAUGHTER KVNG VISITS DAILY.. Smoking Status: Never smoker, Second hand smoke exposure Past Alcohol Use History: None Reported Past Drug Use History: None Reported - Past Family History Father Family Medical History: COPD Additional Family Medical History / Comment(s): EMPHYSEMA Mother Family Medical History: Osteoarthritis (OA) Additional Family Medical History / Comment(s): EMPHYSEMA, BOWEL OBSTRUCTION/COLOSTOMY Medications and Allergies Home Medications Medication Instructions Recorded Confirmed Type Baclofen [Lioresal] 10 mg PO TID PRN 07/20/15 04/06/20 History Dabigatran [Pradaxa] 150 mg PO BID 07/20/15 04/06/20 History Hydrocodone/Acetaminophen [[place] 1 tab PO QID PRN 07/20/15 04/06/20 History 7.5-325] Moexipril [Univasc] 7.5 mg PO DAILY 07/20/15 04/06/20 History Pravastatin Sodium [Pravachol] 40 mg PO DAILY 07/20/15 04/06/20 History Latanoprost [Xalatan 0.005%] 1 drop BOTH EYES HS 10/15/16 04/06/20 History Nadolol 40 mg PO DAILY 10/15/16 04/06/20 History Albuterol Nebulized [Ventolin 2.5 mg INHALATION RT-TID 08/11/17 04/06/20 History Nebulized] Budesonide/Formoterol Fumarate 1 puff INHALATION RT-BID 08/11/17 04/06/20 History [Symbicort 160-4.5 Mcg Inhaler] Hydrochlorothiazide 12.5 mg PO DAILY 03/14/19 04/06/20 History [hydroCHLOROthiazide] Albuterol Inhaler [Ventolin Hfa 1 puff INHALATION RT-QID PRN 12/03/19 04/06/20 History Inhaler] Pantoprazole Sodium [Protonix] 40 mg PO AC-JAMES #30 tablet. 02/15/20 04/06/20 Rx Potassium Chloride ER [K-Dur 10] 10 meq PO DAILY #30 tab 02/15/20 04/06/20 Rx Magnesium Oxide [Magox 400] 400 mg PO DAILY #60 tablet 03/08/20 04/06/20 Rx Denosumab [Prolia] 60 mg SQ Q180D 04/06/20 04/06/20 History Diclofenac Sodium [Voltaren Gel] 2 gram TOPICAL BID PRN 04/06/20 04/06/20 History Verapamil HCl [Verapamil ER] 240 mg PO BID 04/06/20 04/06/20 History Allergies Allergy/AdvReac Type Severity Reaction Status Date / Time No Known Allergies Allergy Verified 04/06/20 08:18 Physical Exam Vitals: Vital Signs Temp Pulse Pulse Resp BP BP Pulse Ox 04/06/20 09:53 62 16 04/06/20 09:52 97.8 F 62 16 136/67 94 L 04/06/20 09:00 59 L 13 149/68 94 L 04/06/20 08:30 63 19 146/64 92 L 04/06/20 08:00 60 18 152/76 96 04/06/20 07:30 59 L 16 151/72 95 04/06/20 06:47 98.1 F 69 18 164/86 96 Intake and Output 04/05/20 04/06/20 04/06/20 22:59 06:59 14:59 Other: Voiding Method Toilet Weight 54.885 kg 54.885 kg Results CBC & Chem 7: 04/06/20 11:47 04/06/20 07:01 Labs: Abnormal Lab Results - Last 24 Hours (Table) 04/06/20 04/06/20 04/06/20 Range/Units 07:01 07:01 08:02 PT 12.1 H (9.0-12.0) sec INR 1.2 H (<1.2) APTT 43.9 H (22.0-30.0) sec Potassium 3.1 L (3.5-5.1) mmol/L Carbon Dioxide 39 H (22-30) mmol/L BUN 22 H (7-17) mg/dL Glucose 134 H (74-99) mg/dL Magnesium 1.5 L (1.6-2.3) mg/dL Stool Occult Blood Positive H (Negative)
[2020-04-06] MEDS: LATANOPROST 0.005% OPHTH DROPS 2.5 ML BTL BOTH EYES SCH (20:50)
[2020-04-06] MEDS: HYDROCORTISONE SUPPOSITORY 25 MG SUPP RECTAL SCH (20:50)
[2020-04-07] MEDS: SODIUM CHLORIDE 0.9% 1,000 ML IV SCH ×2 (05:24→15:48)
[2020-04-07 08:06] VITALS: RESP 20
[2020-04-07] MEDS: BACLOFEN 10 MG TAB PO PRN ×3 (08:09→23:49)
[2020-04-07] MEDS: HYDROcodone/APAP 7.5-325MG 1 EACH TAB PO PRN ×3 (08:09→23:50)
[2020-04-07] MEDS: VERAPAMIL SR 240 MG TABLET.ER PO SCH ×2 (08:10→21:02)
[2020-04-07] MEDS: MAGNESIUM OXIDE 400 MG TAB PO SCH ×2 (08:10→21:01)
[2020-04-07] MEDS: lisinopriL 10 MG TAB PO SCH (08:10)
[2020-04-07] MEDS: HYDROCORTISONE SUPPOSITORY 25 MG SUPP RECTAL SCH ×4 (08:11→21:01)
[2020-04-07] MEDS: PRAVASTATIN SODIUM 40 MG TAB PO SCH (08:11)
[2020-04-07] MEDS: ALBUTEROL NEBULIZED 2.5 MG/3 ML INHALATION SCH ×3 (08:32→19:26)
[2020-04-07] MEDS: SYMBICORT 160-4.5 MCG INHALER INHALATION SCH ×2 (08:32→19:26)
[2020-04-07 09:13] LABS: Basophils % (A) 0 %; Eosinophils # (A) 0.3 k/uL (0-0.7); Eosinophils % (A) 6 %; HGB 12.2 gm/dL (11.4-16.0); Lymphocytes # (A) 1.6 k/uL (1.0-4.8); Lymphocytes % (A) 32 %; MCH 33.5 pg (25.0-35.0); MCHC 32.9 g/dL (31.0-37.0); MCV 101.7 fL (80.0-100.0); Macrocytosis Slight; Mean Platelet Volume 8.7; Monocytes # (A) 0.3 k/uL (0-1.0); Monocytes % (A) 6 %; Neutrophils # (A) 2.6 k/uL (1.3-7.7); Neutrophils % (A) 51 %; Platelet Count 207 k/uL (150-450); RBC 3.63 m/uL (3.80-5.40); WBC 5.1 k/uL (3.8-10.6)
[2020-04-07 09:31] LABS: African American GFR (CKD) >90 (>60 ml/min/1.73 sqM); Anion Gap 3 mmol/L; Blood Urea Nitrogen 12 mg/dL (7-17); Calcium 9.5 mg/dL (8.4-10.2); Carbon Dioxide 34 mmol/L (22-30); Chloride 103 mmol/L (98-107); Glucose 115 mg/dL (74-99); Magnesium 1.3 mg/dL (1.6-2.3); Non-African American GFR(CKD) 83 (>60 ml/min/1.73 sqM); Potassium 3.3 mmol/L (3.5-5.1); Sodium 140 mmol/L (137-145)
[2020-04-07] MEDS ORDERED: MAGNESIUM OXIDE 400 MG TAB PO STA (09:57)
[2020-04-07] MEDS ORDERED: POTASSIUM CHLORIDE ER 20 MEQ TAB.ER PO STA (09:57)
--- NOTE | 2020-04-07 13:19 | P.PN ---
Subjective Progress Note Date: 04/07/20 CHIEF COMPLAINT: Blood per rectum HISTORY OF PRESENT ILLNESS: Patient reports decrease in her bleeding. She had no further blood per rectum to the night or this morning. Her hemoglobin stable at 12.2. Afebrile. Tolerating regular diet. PHYSICAL EXAM: VITAL SIGNS: Reviewed GENERAL: Well-developed in no acute distress. HEENT: No sclera icterus. Extraocular movements grossly intact. Moist buccal mucosa. Head is atraumatic, normocephalic. Hears conversational speech. No nasal drainage. NECK: Supple without lymphadenopathy. CHEST: Non-labored respirations and equal bilateral excursions. CARDIOVASCULAR: Regular rate with regular rhythm. Palpable 2+ radial pulses. ABDOMEN: Soft. Nondistended. Nontender. MUSCULOSKELETAL: No clubbing or cyanosis. NEUROLOGIC: No focal or lateralizing signs. Cranial nerves II through XII grossly intact. PSYCH: Appropriate affect. Alert and oriented to person, place and time. SKIN: Well perfused. Good skin turgor. ASSESSMENT: 1. Bright red blood per rectum possibly due to aggravation of the hemorrhoids from the diarrhea and being on blood thinner 2. Acute lower GI bleed 3. History of internal and external hemorrhoids noted on colonoscopy on 02/15/2020 4. Prior history of diverticulosis 5. Prior history of GI bleeds PLAN: -No plan for endoscopy -Discontinue the Pradaxa -Recommend alternative to anticoagulants such as the watchman procedure -Recommend that patient follow up with cardiology for antiarrhythmic management for her atrial fibrillation Physician Remelt Pan Tank Operator note has been reviewed by physician. Signing provider agrees with the documented findings, assessment, and plan of care. Objective - Vital Signs Vital signs: Vital Signs Temp 97.7 F 04/07/20 08:05 Pulse 72 04/07/20 08:48 Resp 20 04/07/20 09:00 BP 164/73 04/07/20 08:05 Pulse Ox 96 04/07/20 08:05 Intake & Output 04/06/20 04/07/20 04/07/20 18:59 06:59 18:59 Intake Total 800 0 900 Balance 800 0 900 Weight 54.885 kg Intake: IV 800 Sodium Chloride 0.9% 1, 800 000 ml @ 100 mls/hr IV . Q10H [facility] Rx#:[id number] Oral 800 0 100 Other: Voiding Method Toilet Toilet Toilet # Voids 3 0 - Labs CBC & Chem 7: 04/07/20 08:36 04/07/20 08:36 Labs: Abnormal Lab Results - Last 24 Hours (Table) 04/07/20 04/07/20 Range/Units 08:36 08:36 RBC 3.63 L (3.80-5.40) m/uL MCV 101.7 H (80.0-100.0) fL Potassium 3.3 L (3.5-5.1) mmol/L Carbon Dioxide 34 H (22-30) mmol/L Glucose 115 H (74-99) mg/dL Magnesium 1.3 L (1.6-2.3) mg/dL
[2020-04-07] MEDS: LATANOPROST 0.005% OPHTH DROPS 2.5 ML BTL BOTH EYES SCH (21:01)
[2020-04-08] MEDS: SODIUM CHLORIDE 0.9% 1,000 ML IV SCH ×2 (00:28→10:57)
[2020-04-08 03:55] VITALS: TEMP 97.7
[2020-04-08] MEDS: ALBUTEROL NEBULIZED 2.5 MG/3 ML INHALATION SCH ×2 (07:39→13:17)
[2020-04-08] MEDS: SYMBICORT 160-4.5 MCG INHALER INHALATION SCH (07:39)
[2020-04-08 08:02] VITALS: BP 150/78; PULSE 65
[2020-04-08] MEDS: MAGNESIUM OXIDE 400 MG TAB PO SCH (08:07)
[2020-04-08] MEDS: HYDROcodone/APAP 7.5-325MG 1 EACH TAB PO PRN (08:07)
[2020-04-08] MEDS: lisinopriL 10 MG TAB PO SCH (08:07)
[2020-04-08] MEDS: BACLOFEN 10 MG TAB PO PRN (08:07)
[2020-04-08] MEDS: HYDROCORTISONE SUPPOSITORY 25 MG SUPP RECTAL SCH (08:08)
[2020-04-08] MEDS: VERAPAMIL SR 240 MG TABLET.ER PO SCH (08:08)
[2020-04-08] MEDS: PRAVASTATIN SODIUM 40 MG TAB PO SCH (08:08)
[2020-04-08 09:41] LABS: HCT 33.8 % (34.0-46.0); HGB 11.3 gm/dL (11.4-16.0); MCH 33.9 pg (25.0-35.0); MCHC 33.5 g/dL (31.0-37.0); MCV 101.2 fL (80.0-100.0); Mean Platelet Volume 8.2; Platelet Count 173 k/uL (150-450); RBC 3.34 m/uL (3.80-5.40); RDW 13.2 % (11.5-15.5); WBC 5.3 k/uL (3.8-10.6)
[2020-04-08 09:51] LABS: African American GFR (CKD) >90 (>60 ml/min/1.73 sqM); Anion Gap 1 mmol/L; Blood Urea Nitrogen 11 mg/dL (7-17); Calcium 9.4 mg/dL (8.4-10.2); Carbon Dioxide 32 mmol/L (22-30); Chloride 106 mmol/L (98-107); Glucose 88 mg/dL (74-99); Magnesium 1.5 mg/dL (1.6-2.3); Non-African American GFR(CKD) 86 (>60 ml/min/1.73 sqM); Potassium 3.9 mmol/L (3.5-5.1); Sodium 139 mmol/L (137-145)
--- NOTE | 2020-04-08 14:17 | P.PN ---
Subjective Progress Note Date: 04/08/20 CHIEF COMPLAINT: Blood per rectum HISTORY OF PRESENT ILLNESS: Patient reports having blood per rectum yesterday afternoon in a couple episodes through the evening. But each episode was a smaller amount of bleeding. She denies any abdominal pain. Denies any rectal pain. Medicine has placed patient on Anusol suppositories. Hemoglobin has decreased from 12.2-11.3. Afebrile. PHYSICAL EXAM: VITAL SIGNS: Reviewed GENERAL: Well-developed in no acute distress. HEENT: No sclera icterus. Extraocular movements grossly intact. Moist buccal mucosa. Head is atraumatic, normocephalic. Hears conversational speech. No nasal drainage. NECK: Supple without lymphadenopathy. CHEST: Non-labored respirations and equal bilateral excursions. CARDIOVASCULAR: Regular rate with regular rhythm. Palpable 2+ radial pulses. ABDOMEN: Soft. Nondistended. Nontender. MUSCULOSKELETAL: No clubbing or cyanosis. NEUROLOGIC: No focal or lateralizing signs. Cranial nerves II through XII grossly intact. PSYCH: Appropriate affect. Alert and oriented to person, place and time. SKIN: Well perfused. Good skin turgor. ASSESSMENT: 1. Bright red blood per rectum possibly due to aggravation of the hemorrhoids from the diarrhea and being on blood thinner 2. Acute lower GI bleed 3. History of internal and external hemorrhoids noted on colonoscopy on 02/15/2020 4. Prior history of diverticulosis 5. Prior history of GI bleeds PLAN: -No plan for endoscopy -Recommend that patient remains off of Pradaxa -Recommend alternative to anticoagulants such as the watchman procedure -Recommend that patient follow up with cardiology for antiarrhythmic management for her atrial fibrillation -Defer treatment to Dr. Pelaez Physician Diamond Cleaver note has been reviewed by physician. Signing provider agrees with the documented findings, assessment, and plan of care. Objective - Vital Signs Vital signs: Vital Signs Temp 97.7 F 04/08/20 08:01 Pulse 65 04/08/20 08:01 Resp 20 04/08/20 09:00 BP 150/78 04/08/20 08:01 Pulse Ox 96 04/08/20 08:01 Intake & Output 04/07/20 04/08/20 04/08/20 18:59 06:59 18:59 Intake Total 0399 455 7413 Balance 4615 480 3328 Intake: IV 1200 800 Sodium Chloride 0.9% 1, 1200 800 000 ml @ 100 mls/hr IV . Q10H [facility] Rx#:[id number] Oral 350 200 440 Other: Voiding Method Toilet Toilet Toilet # Voids 1 2 1 # Bowel Movements 1 - Labs CBC & Chem 7: 04/08/20 09:20 04/08/20 09:20 Labs: Abnormal Lab Results - Last 24 Hours (Table) 04/08/20 04/08/20 Range/Units 09: 09:20 RBC 3.34 L (3.80-5.40) m/uL Hgb 11.3 L (11.4-16.0) gm/dL Hct 33.8 L (34.0-46.0) % MCV 101.2 H (80.0-100.0) fL Carbon Dioxide 32 H (22-30) mmol/L Magnesium 1.5 L (1.6-2.3) mg/dL
--- NOTE | 2020-04-08 15:35 | P.PN ---
Progress Note - Text Progress Note Date: 04/07/20 Chief Complaint: Fresh blood per rectum History of presenting complaint: This is a very pleasant 74-year-old patient of Dr. Faizan sepulveda. Chronic stable medical conditions include GERD, hyperlipidemia, hypertension, Colt arthritis, paroxysmal atrial fibrillation, varicose veins, diverticulosis. Patient is very hard of hearing and does lipreading. Patient in the hospital 3 weeks ago. Seen by Dr. Anyi Brewster. Fluoroscopy-showed internal hemorrhoids grade 3 and external prolapsed hemorrhoids. EGD-grade a erosive esophagitis and some chronic gastritis. Patient had some diarrhea yesterday. Early hours of this morning patient noticed fresh blood in the toilet spanned that was splashed. Patient has a picture of the same in a Smart 4. No abdominal pain. No nausea vomiting. No fever no chills. Patient admitted with what is felt to be interval hemorrhoidal bleeding. Pradaxa has been held by surgery. Today-patient was prescribed Anusol@. That the patient declined. Patient was explained the importance of taking the same. Later in the day patient had another fresh bleeding. Patient's discharge was held. Review of systems: Was done for constitutional, cardiovascular, GI, pulmonary. relevant finding as above Active Medications Acetaminophen (Acetaminophen Tab 325 Mg Tab) 650 mg PO Q6HR PRN PRN Reason: Mild Pain or Fever > 100.5 Hydrocodone Bitart/Acetaminophen (Hydrocodone/Apap 7.5-325mg 1 Each Tab) 1 each PO QID PRN PRN Reason: Pain Last Admin: 04/07/20 15:54 Dose: 1 each Documented by: Albuterol Sulfate (Albuterol Nebulized 2.5 Mg/3 Ml) 2.5 mg INHALATION RT-QID PRN PRN Reason: Shortness Of Breath Albuterol Sulfate (Albuterol Nebulized 2.5 Mg/3 Ml) 2.5 mg INHALATION RT-TID RIGOBERTO Last Admin: 04/07/20 19:26 Dose: 2.5 mg Documented by: Baclofen (Baclofen 10 Mg Tab) 10 mg PO TID PRN PRN Reason: Muscle Spasm Last Admin: 04/07/20 15:55 Dose: 10 mg Documented by: Budesonide/Formoterol Fumarate (Symbicort 160-4.5 Mcg Inhaler) 1 puff INHALATION RT-BID RIGOBERTO Last Admin: 04/07/20 19:26 Dose: 1 puff Documented by: Diclofenac Sodium (Diclofenac Sodium Gel 100 Gm Tube) 2 gm TOPICAL BID PRN PRN Reason: Pain Hydrocortisone Acetate (Hydrocortisone Suppository 25 Mg Supp) 25 mg RECTAL BID [facility] Last Admin: 04/07/20 21:01 Dose: 25 mg Documented by: Sodium Chloride (Saline 0.9%) 1,000 mls @ 100 mls/hr IV .Q10H [facility] Last Admin: 04/07/20 15:48 Dose: 100 mls/hr Documented by: Latanoprost (Latanoprost 0.005% Ophth Drops 2.5 Ml Btl) 1 drops BOTH EYES HS [facility] Last Admin: 04/07/20 21:01 Dose: 1 drops Documented by: Lisinopril (Lisinopril 10 Mg Tab) 10 mg PO DAILY [facility] Last Admin: 04/07/20 08:10 Dose: 10 mg Documented by: Magnesium Oxide (Magnesium Oxide 400 Mg Tab) 400 mg PO BID [facility] Last Admin: 04/07/20 21:01 Dose: 400 mg Documented by: Nadolol (Nadolol 20 Mg Tab) 40 mg PO DAILY [facility] Last Admin: 04/07/20 08:11 Dose: 40 mg Documented by: Naloxone HCl (Naloxone 0.4 Mg/Ml 1 Ml Vial) 0.2 mg IV Q2M PRN PRN Reason: Opioid Reversal Ondansetron HCl (Ondansetron 4 Mg/2 Ml Vial) 4 mg IVP Q8HR PRN PRN Reason: Nausea And Vomiting Pravastatin Sodium (Pravastatin Sodium 40 Mg Tab) 40 mg PO DAILY [facility] Last Admin: 04/07/20 08:11 Dose: 40 mg Documented by: Verapamil HCl (Verapamil Sr 240 Mg Tablet.Er) 240 mg PO BID [facility] Last Admin: 04/07/20 21:02 Dose: 240 mg Documented by: Physical examination: VITAL SIGNS: 97.9, 62, 16, 137 with 85, 94% on room air GENERAL: BMI 22.9, sitting up in bed, comfortable EYES: Pupils equal. Conjunctiva normal. HEENT: External appearance of nose and ears normal, oral cavity grossly normal. Very hard of hearing NECK: JVD not raised; masses not palpable. HEART: First and second heart sounds are normal; no edema. LUNGS: Respiratory rate normal, decreased breaths sounds. ABDOMEN: Soft, nontender, liver spleen not palpable, no masses palpable. PSYCH: Alert and oriented x3; mood and affect normal. MUSCULAR skeletal:: Evidence of OA especially in the hands INVESTIGATIONS, reviewed in the clinical context: April 07: Hemoglobin 12.2 potassium 3.3 creatinine 0.7 to White count 10.2 hemoglobin 14.1 platelets 280 6 repeat hemoglobin 13.6 potassium 3.1 creatinine 0.84 Assessment: -Acute lower GI bleed that was a "splashed in the chavira" very classical of internal hemorrhoid bleeding. Patient started on Anusol-HC which patient initially declined - moderate persistent asthma -GERD -Hyperlipidemia -Essential hypertension -Primary osteoarthritis -Paroxysmal atrial fibrillation currently in sinus rhythm -Esophagitis and gastritis. Plan: Patient educated on the importance of using Anusol-@C. Patient is agreed to take the same. Has some more bleeding today. Discharge has been postponed. Surgery wishes to hold off on Pradaxa. Patient to follow-up with cardiology in a few days. No possible watchman procedure
--- NOTE | 2020-04-08 15:38 | P.DS ---
Providers Date of admission: 04/06/20 09:01 Expected date of discharge: 04/08/20 Attending physician: Jovani Pelaez Consults: 04/06/20 08:35 Consult Physician Stat Consulting Provider: Anyi Dan Consult Reason/Comments: Lower GI bleeding Do you want consulting provider notified?: Yes Primary care physician: [facility] Course: Chief Complaint: Fresh blood per rectum History of presenting complaint: This is a very pleasant 74-year-old patient of Dr. Faizan estrella. Chronic stable medical conditions include GERD, hyperlipidemia, hypertension, Colt arthritis, paroxysmal atrial fibrillation, varicose veins, diverticulosis. Patient is very hard of hearing and does lipreading. Patient in the hospital 3 weeks ago. Seen by Dr. Anyi Brewster. Fluoroscopy-showed internal hemorrhoids grade 3 and external prolapsed hemorrhoids. EGD-grade a erosive esophagitis and some chronic gastritis. Patient had some diarrhea yesterday. Early hours of this morning patient noticed fresh blood in the toilet spanned that was splashed. Patient has a picture of the same in a Smart 4. No abdominal pain. No nausea vomiting. No fever no chills. Patient admitted with what is felt to be interval hemorrhoidal bleeding. Pradaxa has been held by surgery. Patient was initially reluctant to take the Anusol-HC. Has finally agreed for the same. Started yesterday. Today-no further bleeding. Patient is due to see a mucking machine operator about the watchman procedure. Has been held by surgery. Discussed with patient.. Web Site Designer: Dr. Anyi Brewster from general surgery Physical examination: VITAL SIGNS: 97.7, 65, 20, 150/78, 96% room air GENERAL: , sitting up in bed, comfortable EYES: Pupils equal. Conjunctiva normal. HEENT: External appearance of nose and ears normal, oral cavity grossly normal. Very hard of hearing NECK: JVD not raised; masses not palpable. HEART: First and second heart sounds are normal; no edema. LUNGS: Respiratory rate normal, decreased breaths sounds. ABDOMEN: Soft, nontender, liver spleen not palpable, no masses palpable. PSYCH: Alert and oriented x3; mood and affect normal. MUSCULAR skeletal:: Evidence of OA especially in the hands INVESTIGATIONS, reviewed in the clinical context: April 08: Hemoglobin 11.3 potassium 3.9 April 07: Hemoglobin 12.2 potassium 3.3 creatinine 0.7 to White count 10.2 hemoglobin 14.1 platelets 280 6 repeat hemoglobin 13.6 potassium 3.1 creatinine 0.84 Assessment: -Acute lower GI bleed that was a "splashed in the chavira" very classical of internal hemorrhoid bleeding. Patient started on Anusol-HC which patient initially declined - moderate persistent asthma -GERD -Hyperlipidemia -Essential hypertension -Primary osteoarthritis -Paroxysmal atrial fibrillation currently in sinus rhythm -Chronic Esophagitis and gastritis. -Acute blood loss anemia from hemorrhoidal bleeding Disposition: Home Patient Condition at Discharge: Stable Plan - Discharge Summary Discharge Rx Participant: No New Discharge Prescriptions: New Hydrocortisone Suppository [Anusol-Hc] 25 mg RECTAL BID #60 supp Continue Pravastatin Sodium [Pravachol] 40 mg PO DAILY Hydrocodone/Acetaminophen [[place] 7.5-325] 1 tab PO QID PRN PRN Reason: Pain Baclofen [Lioresal] 10 mg PO TID PRN PRN Reason: Muscle Spasm Dabigatran [Pradaxa] 150 mg PO BID Moexipril [Univasc] 7.5 mg PO DAILY Nadolol 40 mg PO DAILY Latanoprost [Xalatan 0.005%] 1 drop BOTH EYES HS Budesonide/Formoterol Fumarate [Symbicort 160-4.5 Mcg Inhaler] 1 puff INHALATION RT-BID Albuterol Nebulized [Ventolin Nebulized] 2.5 mg INHALATION RT-TID Albuterol Inhaler [Ventolin Hfa Inhaler] 1 puff INHALATION RT-QID PRN PRN Reason: Shortness Of Breath Pantoprazole Sodium [Protonix] 40 mg PO -BRKFST #30 tablet. Magnesium Oxide [Magox 400] 400 mg PO DAILY #60 tablet Denosumab [Prolia] 60 mg SQ Q180D Verapamil HCl [Verapamil ER] 240 mg PO BID Diclofenac Sodium [Voltaren Gel] 2 gram TOPICAL BID PRN PRN Reason: Pain Discontinued Hydrochlorothiazide [hydroCHLOROthiazide] 12.5 mg PO DAILY Potassium Chloride ER [K-Dur 10] 10 meq PO DAILY #30 tab Discharge Medication List Baclofen [Lioresal] 10 mg PO TID PRN 07/20/15 [History] Dabigatran [Pradaxa] 150 mg PO BID 07/20/15 [History] Hydrocodone/Acetaminophen [[place] 7.5-325] 1 tab PO QID PRN 07/20/15 [History] Moexipril [Univasc] 7.5 mg PO DAILY 07/20/15 [History] Pravastatin Sodium [Pravachol] 40 mg PO DAILY 07/20/15 [History] Latanoprost [Xalatan 0.005%] 1 drop BOTH EYES HS 10/15/16 [History] Nadolol 40 mg PO DAILY 10/15/16 [History] Albuterol Nebulized [Ventolin Nebulized] 2.5 mg INHALATION RT-TID 08/11/17 [History] Budesonide/Formoterol Fumarate [Symbicort 160-4.5 Mcg Inhaler] 1 puff INHALATION RT-BID 08/11/17 [History] Albuterol Inhaler [Ventolin Hfa Inhaler] 1 puff INHALATION RT-QID PRN 12/03/19 [History] Pantoprazole Sodium [Protonix] 40 mg PO AC-BRKFST #30 tablet. 02/15/20 [Rx] Magnesium Oxide [Magox 400] 400 mg PO DAILY #60 tablet 03/08/20 [Rx] Denosumab [Prolia] 60 mg SQ Q180D 04/06/20 [History] Diclofenac Sodium [Voltaren Gel] 2 gram TOPICAL BID PRN 04/06/20 [History] Verapamil HCl [Verapamil ER] 240 mg PO BID 04/06/20 [History] Hydrocortisone Suppository [Anusol-Hc] 25 mg RECTAL BID #60 supp 04/07/20 [Rx] Follow up Appointment(s)/Referral(s): cardiology, [Other] - 1 Week (Cardiology to see regarding GI bleed on Pradaxa and not to take Pradaxa per Dr Brewster. Wanting to have a Watchman. Office will call with appointment time) Faizan Estrella MD [Primary Care Provider] - 04/11/20 9:30 am Patient Instructions/Handouts: Hydrocortisone (Into the rectum), Hemorrhoids (DC) Discharge Disposition: HOME SELF-CARE Plan of Treatment: NO Pradaxa per Dr Brewster
== END 2020-04-08 14:05 | disposition home or self-care (01) ==
LOC: EC 06:44 → 1SOBS 09:01
PROVIDERS: ADMIT Hospitalist; ATTEND Hospitalist
DX: K64.2 Third degree hemorrhoids (principal); K64.8 Other hemorrhoids; R19.7 Diarrhea, unspecified; K21.01 Gastro-esophageal reflux disease with esophagitis, with bleeding; K29.51 Unspecified chronic gastritis with bleeding; K57.91 Diverticulosis of intestine, part unspecified, without perforation or abscess with bleeding; D62 Acute posthemorrhagic anemia; E78.5 Hyperlipidemia, unspecified; J45.40 Moderate persistent asthma, uncomplicated; I10 Essential (primary) hypertension; M47.899 Other spondylosis, site unspecified; I48.0 Paroxysmal atrial fibrillation; J44.9 Chronic obstructive pulmonary disease, unspecified; H91.90 Unspecified hearing loss, unspecified ear; H40.9 Unspecified glaucoma; I83.90 Asymptomatic varicose veins of unspecified lower extremity; E87.6 Hypokalemia; E83.42 Hypomagnesemia; Z79.01 Long term (current) use of anticoagulants; Z79.899 Other long term (current) drug therapy; Z79.51 Long term (current) use of inhaled steroids; Z79.1 Long term (current) use of non-steroidal anti-inflammatories (NSAID); Z79.891 Long term (current) use of opiate analgesic; Z87.01 Personal history of pneumonia (recurrent); Z97.4 Presence of external hearing-aid; Z87.09 Personal history of other diseases of the respiratory system; Z87.11 Personal history of peptic ulcer disease; Z87.19 Personal history of other diseases of the digestive system; Z87.74 Personal history of (corrected) congenital malformations of heart and circulatory system; Z86.010 Personal history of colon polyps; Z90.89 Acquired absence of other organs; Z90.49 Acquired absence of other specified parts of digestive tract; Z98.890 Other specified postprocedural states; Z90.710 Acquired absence of both cervix and uterus; Z98.51 Tubal ligation status; Z98.41 Cataract extraction status, right eye; Z98.42 Cataract extraction status, left eye; Z82.5 Family history of asthma and other chronic lower respiratory diseases; Z82.61 Family history of arthritis; Z83.79 Family history of other diseases of the digestive system
CPT/HCPCS: 96361 ×3; 96374; 99285; 36415; 94640 ×5; 93005; 86900; 86901; 80053; 80048 ×2; 83735 ×3; 85025 ×2; 85027; 85610; 85730; 86850; 82272; G0378 ×3; C9113

== ENCOUNTER → 2020-04-14 | Outpatient (CLI) | payer MEDICARE, OTHER ==
[2020-04-14 09:16] LABS: Basophils # (A) 0.1 k/uL (0-0.2); Basophils % (A) 1 %; Eosinophils # (A) 0.3 k/uL (0-0.7); Eosinophils % (A) 4 %; HCT 39.6 % (34.0-46.0); HGB 13.2 gm/dL (11.4-16.0); Lymphocytes # (A) 1.6 k/uL (1.0-4.8); Lymphocytes % (A) 18 %; MCH 33.5 pg (25.0-35.0); MCHC 33.4 g/dL (31.0-37.0); MCV 100.2 fL (80.0-100.0); Mean Platelet Volume 7.9; Monocytes # (A) 0.6 k/uL (0-1.0); Monocytes % (A) 7 %; Neutrophils # (A) 6.1 k/uL (1.3-7.7); Neutrophils % (A) 68 %; Platelet Count 243 k/uL (150-450); RBC 3.95 m/uL (3.80-5.40); RDW 13.2 % (11.5-15.5)
[2020-04-14 09:35] LABS: Calcium 10.4 mg/dL (8.4-10.2); Potassium 4.1 mmol/L (3.5-5.1)
[2020-04-14 09:49] LABS: Appearance,Urine Cloudy (Clear); Bilirubin,Urine Negative (Negative); Blood,Urine Negative (Negative); Color,Urine Light Yellow; Glucose,Urine (UA) Negative (Negative); Ketones,Urine Negative (Negative); Leukocyte Esterase,Urine Negative (Negative); Nitrite,Urine Negative (Negative); Protein,Urine Trace (Negative); RBC,Urine <1 /hpf (0-5); Squamous Epithelial Cell,Urine <1 /hpf (0-4); Urobilinogen,Urine <2.0 mg/dL (<2.0); WBC,Urine <1 /hpf (0-5)
[2020-04-14 19:03] LABS: % Iron Saturation 11.18 (12.00-45.00)
--- NOTE | 2020-04-19 10:01 | MM ---
Reason for exam: screening (asymptomatic). Last mammogram was performed 1 year and 2 months ago. History: Patient is postmenopausal. Family history of breast cancer in sister at age 60. US discontinued breast bx RT of the right breast, March 26, 2016. Physical Findings: A clinical breast exam by your physician is recommended on an annual basis and results should be correlated with mammographic findings. MG 3D Screening Mammo W/Cad Bilateral CC and MLO view(s) were taken. Prior study comparison: February 05, 2019, bilateral MG 3d screening mammo w/cad. January 29, 2018, bilateral MG 3d screening mammo w/cad. There are scattered fibroglandular densities. There is chronic nodularity bilaterally, in a benign pattern. No significant changes when compared with prior studies. ASSESSMENT: Benign, BI-RAD 2 RECOMMENDATION: Routine screening mammogram of both breasts in 1 year.
== END | disposition home or self-care (01) ==
LOC: RADMAMWWP 08:32
PROVIDERS: ATTEND Internal Medicine
DX: Z12.31 Encounter for screening mammogram for malignant neoplasm of breast (principal); E78.5 Hyperlipidemia, unspecified; I10 Essential (primary) hypertension; E55.9 Vitamin D deficiency, unspecified; D64.9 Anemia, unspecified
CPT/HCPCS: 77063; 77067; 80053; 80061; 81001; 82306; 83540; 83550; 85025

== ENCOUNTER → 2020-05-11 | Outpatient (CLI) | payer MEDICARE, OTHER ==
[2020-05-11 12:06] LABS: HCT 42.8 % (34.0-46.0); HGB 14.1 gm/dL (11.4-16.0); MCH 33.2 pg (25.0-35.0); MCHC 32.9 g/dL (31.0-37.0); Macrocytosis Slight; Mean Platelet Volume 8.5; Platelet Count 204 k/uL (150-450); RBC 4.24 m/uL (3.80-5.40); RDW 13.5 % (11.5-15.5); WBC 6.2 k/uL (3.8-10.6)
[2020-05-11 23:57] LABS: Anion Gap 8.4 mmol/L (4.00-12.00); Carbon Dioxide 36.6 mmol/L (21.6-31.8); Non-African American GFR(CKD) 62.1 (60.0-200.0); Potassium 3.4 mmol/L (3.5-5.5)
== END | disposition home or self-care (01) ==
LOC: LABWHC1 11:18
PROVIDERS: ATTEND Internal Medicine Cardiovascular Disease
DX: I48.0 Paroxysmal atrial fibrillation (principal)
CPT/HCPCS: 36415; 80051; 82565; 84520; 85027

== ENCOUNTER 2020-06-25 10:35 | Inpatient (IN) | payer MEDICARE, OTHER ==
[2020-06-25] MEDS ORDERED: SODIUM CHLORIDE 0.9% 1,000 ML IV STA (11:01)
[2020-06-25] MEDS ORDERED: ONDANSETRON 4 MG/2 ML VIAL IVP STA (11:01)
[2020-06-25] MEDS ORDERED: PANTOPRAZOLE 40 MG/10 ML VIAL IVP STA (11:01)
[2020-06-25 11:20] LABS: Basophils % (A) 0 %; Eosinophils % (A) 0 %; HCT 35.8 % (34.0-46.0); Lymphocytes # (A) 1.2 k/uL (1.0-4.8); Lymphocytes % (A) 8 %; MCH 33.5 pg (25.0-35.0); MCHC 33.5 g/dL (31.0-37.0); MCV 100.1 fL (80.0-100.0); Mean Platelet Volume 8.6; Monocytes # (A) 0.7 k/uL (0-1.0); Monocytes % (A) 5 %; Neutrophils # (A) 12.9 k/uL (1.3-7.7); Neutrophils % (A) 86 %; Platelet Count 228 k/uL (150-450); RBC 3.58 m/uL (3.80-5.40); RDW 13.7 % (11.5-15.5)
[2020-06-25] MEDS ORDERED: MORPHINE SULFATE 4 MG/ML SYRINGE IVP STA (11:20)
--- NOTE | 2020-06-25 11:22 | ED ---
Weakness HPI - General Chief complaint: Weakness Stated complaint: weakness, GI bleed Time Seen by Provider: 06/25/20 10:46 Source: patient, family Mode of arrival: wheelchair Limitations: no limitations, language barrier - History of Present Illness Initial comments: 75-year-old female with history of GI bleeds and A. fib presents to emergency Department with a chief complaint of a GI bleed. Daughter states the patient lives alone and she has had decreased oral intake over the last 2 days with increased weakness. Daughter states the patient his also began to have dark brown stools which is typical for her prior to the onset of bright red bleeding. Patient also reports lower abdominal tenderness along with nausea but no vomiting. Patient states she has not been able to take her medications for 2 days due to being nauseous and dry heaving. Patient is currently on Pradaxa after having a watchman procedure for her A. fib. Patient states she also has history of hemorrhoids but states the bleeding does not feel like it. Patient reports generalized weakness but denies one sided weakness or paresthesias. Denies any blurry vision headache chest pain shortness of breath. She has history of chronic back pain. - Related Data Home Medications Medication Instructions Recorded Confirmed Baclofen [Lioresal] 10 mg PO TID PRN 07/20/15 06/25/20 Dabigatran [Pradaxa] 150 mg PO BID 07/20/15 06/25/20 Hydrocodone/Acetaminophen [[place] 1 tab PO QID PRN 07/20/15 06/25/20 7.5-325] Moexipril [Univasc] 7.5 mg PO DAILY 07/20/15 06/25/20 Pravastatin Sodium [Pravachol] 40 mg PO DAILY 07/20/15 06/25/20 Latanoprost [Xalatan 0.005%] 2 drop BOTH EYES HS 10/15/16 06/25/20 Nadolol 40 mg PO DAILY 10/15/16 06/25/20 Albuterol Nebulized [Ventolin 2.5 mg INHALATION RT-TID 08/11/17 06/25/20 Nebulized] Budesonide/Formoterol Fumarate 2 puff INHALATION RT-BID 08/11/17 06/25/20 [Symbicort 160-4.5 Mcg Inhaler] Albuterol Inhaler [Ventolin Hfa 1 puff INHALATION RT-QID PRN 12/03/19 06/25/20 Inhaler] Denosumab [Prolia] 60 mg SQ Q180D 04/06/20 06/25/20 Diclofenac Sodium [Voltaren Gel] 2 gram TOPICAL BID PRN 04/06/20 06/25/20 Verapamil HCl [Verapamil ER] 240 mg PO DAILY 04/06/20 06/25/20 Aspirin EC [Ecotrin Low Dose] 81 mg PO DAILY 06/25/20 06/25/20 Hydrochlorothiazide 12.5 mg PO DAILY 06/25/20 06/25/20 [hydroCHLOROthiazide] Omeprazole 20 mg PO DAILY 06/25/20 06/25/20 Allergies Allergy/AdvReac Type Severity Reaction Status Date / Time No Known Allergies Allergy Verified 06/25/20 11:31 Review of Systems ROS Statement: Those systems with pertinent positive or pertinent negative responses have been documented in the HPI. ROS Other: All systems not noted in ROS Statement are negative. Past Medical History Past Medical History: Atrial Fibrillation, Asthma, COPD, GERD/Reflux, GI Bleed, Hyperlipidemia, Hypertension, Osteoarthritis (OA), Pneumonia, Vascular Disorder Additional Past Medical History / Comment(s): Pt is very hard of hearing, she wears a hearing aide and normally reads lips-she reads and writes. Other Hx: Bronchitis, gastric ulcer, diverticular disease, lower GI bleed/AV malformation with ablation, benign colon polyp, borderline hyperlipidemia, arthritis mostly in back, slight bilateral glaucoma, varicosities. History of Any Multi-Drug Resistant Organisms: None Reported Past Surgical History: Adenoidectomy, Appendectomy, Heart Catheterization, Hysterectomy, Tonsillectomy, Tubal Ligation Additional Past Surgical History / Comment(s): Colonoscopy/benign polypectomy/AV malformation ablation, bilateral cataract removals, watchmen procedure Past Anesthesia/Blood Transfusion Reactions: No Reported Reaction Additional Past Anesthesia/Blood Transfusion Reaction / Comment(s): never recieved blood before. Past Psychological History: No Psychological Hx Reported Smoking Status: Never smoker, Second hand smoke exposure Past Alcohol Use History: None Reported Past Drug Use History: None Reported - Past Family History Father Family Medical History: COPD Additional Family Medical History / Comment(s): EMPHYSEMA Mother Family Medical History: Osteoarthritis (OA) Additional Family Medical History / Comment(s): EMPHYSEMA, BOWEL OBSTRUCTION/COLOSTOMY General Exam Limitations: no limitations, language barrier General appearance: alert, in no apparent distress Head exam: Present: atraumatic, normocephalic, normal inspection Eye exam: Present: normal appearance, PERRL, EOMI Pupils: Present: normal accommodation ENT exam: Present: normal exam, normal oropharynx, mucous membranes dry, TM's normal bilaterally Neck exam: Present: normal inspection, full ROM. Absent: tenderness Respiratory exam: Present: normal lung sounds bilaterally. Absent: respiratory distress Cardiovascular Exam: Present: regular rate, normal rhythm, normal heart sounds GI/Abdominal exam: Present: soft, tenderness (Lower abdominal tenderness). Absent: distended, guarding, rebound, rigid Extremities exam: Present: normal inspection, full ROM, normal capillary refill. Absent: tenderness Back exam: Present: normal inspection, full ROM. Absent: tenderness, CVA tenderness (R), CVA tenderness (L) Neurological exam: Present: alert, oriented X3 Psychiatric exam: Present: normal affect, normal mood Skin exam: Present: warm, dry, intact, normal color Course Vital Signs 06/25/20 06/25/20 06/25/20 10:37 11:30 11:44 Temperature 97.7 F Pulse Rate 65 115 H 96 Respiratory 18 18 16 Rate Blood Pressure 140/70 139/80 O2 Sat by Pulse 95 91 L 93 L Oximetry 06/25/20 06/25/20 12:00 12:30 Temperature Pulse Rate 109 H 100 Respiratory 12 19 Rate Blood Pressure 141/65 143/109 O2 Sat by Pulse 88 L 91 L Oximetry Medical Decision Making - Medical Decision Making 75-year-old female presents to the emergency department with a chief complaint of a GI bleed. On physical examination, patient has lower abdominal tenderness. No detectable hemorrhoids on rectal examination. Patient was given analgesia, antiemetics, Protonix and IV fluids. CBC reveals white blood count of 15, likely reactive. No signs of anemia. Elevated coags. Patient is currently on Pradaxa. Lactic is 1.8. Stool occult positive. Elevated BUN and creatinine compared to her baseline which is likely secondary to decreased oral intake. For this reason CT noncontrast of abdomen was obtained showing possible signs of colitis. Initial troponins are negative. EKG showing A. fib. Patient will be admitted for further medical management. Case discussed with Dr. Morgan. Admitting physician is Dr. Benigno GI on cosult - Lab Data Result diagrams: 06/25/20 11:00 06/25/20 11:00 Lab Results 06/25/20 06/25/20 06/25/20 Range/Units 11:00 11:00 11:00 WBC 15.0 H (3.8-10.6) k/uL RBC 3.58 L (3.80-5.40) m/uL Hgb 12.0 (11.4-16.0) gm/dL Hct 35.8 (34.0-46.0) % MCV 100.1 H (80.0-100.0) fL MCH 33.5 (25.0-35.0) pg MCHC 33.5 (31.0-37.0) g/dL RDW 13.7 (11.5-15.5) % Plt Count 228 (150-450) k/uL MPV 8.6 Neutrophils % 86 % Lymphocytes % 8 % Monocytes % 5 % Eosinophils % 0 % Basophils % 0 % Neutrophils # 12.9 H (1.3-7.7) k/uL Lymphocytes # 1.2 (1.0-4.8) k/uL Monocytes # 0.7 (0-1.0) k/uL Eosinophils # 0.0 (0-0.7) k/uL Basophils # 0.0 (0-0.2) k/uL PT 17.9 H (9.0-12.0) sec INR 1.8 H (<1.2) APTT 52.3 H (22.0-30.0) sec Sodium (137-145) mmol/L Potassium (3.5-5.1) mmol/L Chloride (98-107) mmol/L Carbon Dioxide (22-30) mmol/L Anion Gap mmol/L BUN (7-17) mg/dL Creatinine (0.52-1.04) mg/dL Est GFR (CKD-EPI)AfAm (>60 ml/min/1.73 sqM) Est GFR (CKD-EPI)NonAf (>60 ml/min/1.73 sqM) Glucose (74-99) mg/dL Plasma Lactic Acid [place] (0.7-2.0) mmol/L Calcium (8.4-10.2) mg/dL Magnesium (1.6-2.3) mg/dL Total Bilirubin (0.2-1.3) mg/dL AST (14-36) U/L ALT (4-34) U/L Alkaline Phosphatase (38-126) U/L Troponin I (0.000-0.034) ng/mL Total Protein (6.3-8.2) g/dL Albumin (3.5-5.0) g/dL Lipase (23-300) U/L Stool Occult Blood Positive H (Negative) 06/25/20 06/25/20 06/25/20 Range/Units 11:00 11:00 11:00 WBC (3.8-10.6) k/uL RBC (3.80-5.40) m/uL Hgb (11.4-16.0) gm/dL Hct (34.0-46.0) % MCV (80.0-100.0) fL MCH (25.0-35.0) pg MCHC (31.0-37.0) g/dL RDW (11.5-15.5) % Plt Count (150-450) k/uL MPV Neutrophils % % Lymphocytes % % Monocytes % % Eosinophils % % Basophils % % Neutrophils # (1.3-7.7) k/uL Lymphocytes # (1.0-4.8) k/uL Monocytes # (0-1.0) k/uL Eosinophils # (0-0.7) k/uL Basophils # (0-0.2) k/uL PT (9.0-12.0) sec INR (<1.2) APTT (22.0-30.0) sec Sodium 141 (137-145) mmol/L Potassium 3.6 (3.5-5.1) mmol/L Chloride 98 (98-107) mmol/L Carbon Dioxide 34 H (22-30) mmol/L Anion Gap 9 mmol/L BUN 42 H (7-17) mg/dL Creatinine 1.28 H (0.52-1.04) mg/dL Est GFR (CKD-EPI)AfAm 47 (>60 ml/min/1.73 sqM) Est GFR (CKD-EPI)NonAf 41 (>60 ml/min/1.73 sqM) Glucose 115 H (74-99) mg/dL Plasma Lactic Acid [place] 1.8 (0.7-2.0) mmol/L Calcium 9.8 (8.4-10.2) mg/dL Magnesium 1.6 (1.6-2.3) mg/dL Total Bilirubin 1.0 (0.2-1.3) mg/dL AST 92 H (14-36) U/L ALT 74 H (4-34) U/L Alkaline Phosphatase 92 (38-126) U/L Troponin I <0.012 (0.000-0.034) ng/mL Total Protein 6.7 (6.3-8.2) g/dL Albumin 3.8 (3.5-5.0) g/dL Lipase 40 (23-300) U/L Stool Occult Blood (Negative) Disposition Clinical Impression: GI bleed, Transaminitis, Acute kidney injury, Colitis, Abdominal pain Disposition: ADMITTED IP TO THIS [facility] Condition: Fair Instructions (If sedation given, give patient instructions): Abdominal Pain (ED) Additional Instructions: Patient will be admitted Is patient prescribed a controlled substance at d/c from ED?: No Referrals: Faizan Estrella MD [Primary Care Provider] - 1-2 days Time of Disposition: 13:03
[2020-06-25 11:32] LABS: Albumin 3.8 g/dL (3.5-5.0); Calcium 9.8 mg/dL (8.4-10.2); Magnesium 1.6 mg/dL (1.6-2.3); Potassium 3.6 mmol/L (3.5-5.1); Total Protein 6.7 g/dL (6.3-8.2)
[2020-06-25 11:50] LABS: INR 1.8 (<1.2); Partial Thromboplastin Time 52.3 sec (22.0-30.0); Prothrombin Time 17.9 sec (9.0-12.0)
--- NOTE | 2020-06-25 12:33 | CT ---
EXAMINATION TYPE: CT abdomen pelvis wo con DATE OF EXAM: 06/25/2020 COMPARISON: CT 01/20/2016 HISTORY: Generalized pain and weakness CT DLP: 386.1 mGycm Automated exposure control for dose reduction was used. TECHNIQUE: Helical acquisition of images from the lung bases through the pelvis. FINDINGS: Lack of intravenous contrast could limit sensitivity of the exam. There is a small pericard ial effusion, some local scarring at the level of the lingula medially is noted, heart size is stable . Within the subcutaneous fat over the left gluteal region there is increased attenuation consistent with local ecchymosis, hematoma LUNG BASES: No significant abnormality is appreciated. AORTA: No significant abnormality is appreciated. LIVER/GB: No significant abnormality is appreciated. PANCREAS: No significant abnormality is seen. SPLEEN: No significant abnormality is seen. ADRENALS: No significant abnormality is seen. KIDNEYS: No significant abnormality is seen. REPRODUCTIVE ORGANS: Not seen URINARY BLADDER: No significant abnormality is seen. BOWEL: Colonic wall thickening is again seen. FREE AIR: No Free Air is visible. ASCITES: Suspect there is some free fluid in the pelvis PELVIC ADENOPATHY: None visualized. RETROPERITONEAL ADENOPATHY: No Retroperitoneal Adenopathy visible. OSSEOUS STRUCTURES: No significant interval change is seen: Degenerative disc changes, facet arthrop athy, scoliotic curvature, kyphosis centered at the upper lumbar spine. IMPRESSION: CORRELATE FOR HISTORY OF TRAUMA TO THE LEFT GLUTEAL REGION, ECCHYMOSIS. CORRELATE FOR POSSIBLE UNDERL SYLVESTER COLITIS. POSTOP CHANGES. NONCONTRAST EXAM.
[2020-06-25] MEDS ORDERED: MORPHINE SULFATE 4 MG/ML SYRINGE IV PRN (12:55)
[2020-06-25] MEDS ORDERED: traMADol 50 MG TAB PO PRN (12:55)
[2020-06-25] MEDS ORDERED: ACETAMINOPHEN TAB 325 MG TAB PO PRN (12:55)
[2020-06-25] MEDS ORDERED: ONDANSETRON 4 MG/2 ML VIAL IVP PRN (12:55)
[2020-06-25] MEDS ORDERED: NALOXONE 0.4 MG/ML 1 ML VIAL IV PRN (12:55)
[2020-06-25] MEDS ORDERED: HYDROmorphone 0.5 MG/0.5 ML SYRINGE IVP PRN (12:55)
[2020-06-25] MEDS ORDERED: LORazepam 2 MG/ML INJ IV PRN (12:55)
[2020-06-25] MEDS: SODIUM CHLORIDE 0.9% 1,000 ML IV SCH (13:40)
[2020-06-25] MEDS ORDERED: ALBUTEROL NEBULIZED 2.5 MG/3 ML INHALATION PRN (14:40)
[2020-06-25] MEDS ORDERED: DICLOFENAC SODIUM GEL 100 GM TUBE TOPICAL PRN (14:40)
[2020-06-25] MEDS: ALBUTEROL NEBULIZED 2.5 MG/3 ML INHALATION SCH ×3 (16:14→19:42)
[2020-06-25] MEDS: SYMBICORT 160-4.5 MCG INHALER INHALATION SCH ×2 (16:15→16:20)
[2020-06-25] MEDS: DICYCLOMINE 10 MG CAP PO SCH ×3 (16:17→23:55)
[2020-06-25] MEDS: BACLOFEN 10 MG TAB PO PRN (16:17)
[2020-06-25] MEDS: HYDROcodone/APAP 5-325MG 1 EACH TAB PO PRN (16:18)
--- NOTE | 2020-06-25 19:32 | P.HPIM ---
History of Present Illness H&P Date: 06/25/20 Chief Complaint: Bleeding per rectum Chief Complaint: Fresh blood per rectum History of presenting complaint: This is a very pleasant 74-year-old patient of Dr. Faizan sepulveda. Chronic stable medical conditions include GERD, hyperlipidemia, hypertension, osteoarthritis, paroxysmal atrial fibrillation, varicose veins, diverticulosis. Patient is very hard of hearing and does lipreading. In February 2020 [Dr. Brewster] colonoscopy internal hemorrhoids grade 3 and external prolapsed hemorrhoids. EGD-grade a erosive esophagitis and some chronic gastritis. Patient recently had a watchman procedure done by Dr. Concepcion at [facility]. Patient currently on aspirin and Pradaxa. 2 days patient started out with some nausea vomiting abdominal discomfort. It had fresh bleeding per rectum today. Brought into the ER. No fever no chills. Daughter is the bedside. Patient does feel tired and rundown. Review of systems: GEN.: Tired EYES: None HEENT: Hard of hearing NECK: None RESPIRATORY: None CARDIOVASCULAR: None GASTROINTESTINAL: As above GENITOURINARY: None MUSCULOSKELETAL: Joint pains LYMPHATICS: None HEMATOLOGICAL: None PSYCHIATRY: None NEUROLOGICAL: None Past medical history to include: Asthma, GERD, hyperlipidemia, hypertension, osteoarthritis, paroxysmal atrial fibrillation, varicose veins, stomach ulcer, diverticulitis. Esophagitis, gastritis, internal/external hemorrhoids, watchman procedure Social history: Does not smoke or drink Cold. Lives alone. Physical examination: VITAL SIGNS: 98.2, 107, 18, 106/64, 99% on room air GENERAL: BMI 24, reclining in bed, tired EYES: Pupils equal. Conjunctiva pale. HEENT: External appearance of nose and ears normal, oral cavity grossly normal. Very hard of hearing NECK: JVD not raised; masses not palpable. HEART: First and second heart sounds are normal; no edema. LUNGS: Respiratory rate normal, decreased breaths sounds. ABDOMEN: Soft, nontender, liver spleen not palpable, no masses palpable. PSYCH: Alert and oriented x3; mood and affect normal. MUSCULAR skeletal:: Evidence of OA especially in the hands NEUROLOGICAL: Cranial nerves grossly intact; no facial asymmetry, power and sensation grossly intact. LYMPHATICS: No lymph nodes palpable in the axilla and neck INVESTIGATIONS, reviewed in the clinical context: WBC 15 hemoglobin 12 platelets 228 INR 1.8 potassium 3.6 bun 42 creatinine 1.28 Previous labs: 05/19/2020: Bun 19 creatinine 0.9 Assessment and plan: -This is a patient for 2 days has had some nausea and some vomiting not feeling well abdominal discomfort now presenting with fresh bleeding per rectum. Note that she is is on aspirin and Pradaxa, following her watchman procedure. Over 2 months ago patient did have EGD colonoscopy that is show esophagitis and gastritis. - moderate persistent asthma, continue with Symbicort -GERD, on PPI -Hyperlipidemia, on Pravachol -Essential hypertension, on verapamil ER, Univasc, nadolol -Primary osteoarthritis, use Tylenol when necessary -Paroxysmal atrial fibrillation currently in sinus rhythm -Chronic Esophagitis and gastritis., On PPI -Acute blood loss anemia from GI bleed -Very hard of hearing Consultation has been made to GI, surgery patient known to Dr. Brewster and cardiology. Temporarily aspirin and Pradaxa has been held. IV PPI. Home medications resumed. Follow H&H Past Medical History Past Medical History: Atrial Fibrillation, Asthma, COPD, GERD/Reflux, GI Bleed, Hyperlipidemia, Hypertension, Osteoarthritis (OA), Pneumonia, Vascular Disorder Additional Past Medical History / Comment(s): Pt is very hard of hearing, she wears a hearing aide and normally reads lips-she reads and writes. Other Hx: Bronchitis, gastric ulcer, diverticular disease, lower GI bleed/AV malformation with ablation, benign colon polyp, borderline hyperlipidemia, arthritis mostly in back, slight bilateral glaucoma, varicosities. History of Any Multi-Drug Resistant Organisms: None Reported Past Surgical History: Adenoidectomy, Appendectomy, Heart Catheterization, Hysterectomy, Tonsillectomy, Tubal Ligation Additional Past Surgical History / Comment(s): Colonoscopy/benign polypectomy/AV malformation ablation, bilateral cataract removals, watchmen procedure Past Anesthesia/Blood Transfusion Reactions: No Reported Reaction Additional Past Anesthesia/Blood Transfusion Reaction / Comment(s): never recieved blood before. Past Psychological History: No Psychological Hx Reported Additional Psychological History / Comment(s): PT LIVES ALONE IN [place]. SHE IS HEARING IMPAIRED. SHE HAS PULL CORDS IN HER HOME. SHE USES NO ASSISTIVE DEV ICE. SHE DRIVES OCCASIONALLY. HER GRANDDAUGHTER KVNG VISITS DAILY.. Smoking Status: Never smoker, Second hand smoke exposure Past Alcohol Use History: None Reported Past Drug Use History: None Reported - Past Family History Father Family Medical History: COPD Additional Family Medical History / Comment(s): EMPHYSEMA Mother Family Medical History: Osteoarthritis (OA) Additional Family Medical History / Comment(s): EMPHYSEMA, BOWEL OBSTRUCTION/COLOSTOMY Medications and Allergies Home Medications Medication Instructions Recorded Confirmed Type Baclofen [Lioresal] 10 mg PO TID PRN 07/20/15 06/25/20 History Dabigatran [Pradaxa] 150 mg PO BID 07/20/15 06/25/20 History Hydrocodone/Acetaminophen [[place] 1 tab PO QID PRN 07/20/15 06/25/20 History 7.5-325] Moexipril [Univasc] 7.5 mg PO DAILY 07/20/15 06/25/20 History Pravastatin Sodium [Pravachol] 40 mg PO DAILY 07/20/15 06/25/20 History Latanoprost [Xalatan 0.005%] 2 drop BOTH EYES HS 10/15/16 06/25/20 History Nadolol 40 mg PO DAILY 10/15/16 06/25/20 History Albuterol Nebulized [Ventolin 2.5 mg INHALATION RT-TID 08/11/17 06/25/20 History Nebulized] Budesonide/Formoterol Fumarate 2 puff INHALATION RT-BID 08/11/17 06/25/20 History [Symbicort 160-4.5 Mcg Inhaler] Albuterol Inhaler [Ventolin Hfa 1 puff INHALATION RT-QID PRN 12/03/19 06/25/20 History Inhaler] Denosumab [Prolia] 60 mg SQ Q180D 04/06/20 06/25/20 History Diclofenac Sodium [Voltaren Gel] 2 gram TOPICAL BID PRN 04/06/20 06/25/20 History Verapamil HCl [Verapamil ER] 240 mg PO DAILY 04/06/20 06/25/20 History Aspirin EC [Ecotrin Low Dose] 81 mg PO DAILY 06/25/20 06/25/20 History Hydrochlorothiazide 12.5 mg PO DAILY 06/25/20 06/25/20 History [hydroCHLOROthiazide] Omeprazole 20 mg PO DAILY 06/25/20 06/25/20 History Allergies Allergy/AdvReac Type Severity Reaction Status Date / Time No Known Allergies Allergy Verified 06/25/20 11:31 Physical Exam Vitals: Vital Signs Temp Pulse Pulse Resp BP BP Pulse Ox 06/25/20 16:23 100 06/25/20 15:00 98.1 F 70 18 112/75 100 06/25/20 14:32 98.2 F 107 H 18 106/64 99 06/25/20 13:11 102 H 18 130/70 97 06/25/20 12:30 100 19 143/109 91 L 06/25/20 12:00 109 H 12 141/65 88 L 06/25/20 11:44 96 16 93 L 06/25/20 11:30 115 H 18 139/80 91 L 06/25/20 10:37 97.7 F 65 18 140/70 95 Intake and Output 06/25/20 06/25/20 06/25/20 06:59 14:59 22:59 Other: Weight 53.977 kg Results CBC & Chem 7: 06/25/20 11:00 06/25/20 11:00 Labs: Abnormal Lab Results - Last 24 Hours (Table) 06/25/20 06/25/20 06/25/20 Range/Units 11:00 11:00 11:00 WBC 15.0 H (3.8-10.6) k/uL RBC 3.58 L (3.80-5.40) m/uL MCV 100.1 H (80.0-100.0) fL Neutrophils # 12.9 H (1.3-7.7) k/uL PT 17.9 H (9.0-12.0) sec INR 1.8 H (<1.2) APTT 52.3 H (22.0-30.0) sec Carbon Dioxide (22-30) mmol/L BUN (7-17) mg/dL Creatinine (0.52-1.04) mg/dL Glucose (74-99) mg/dL AST (14-36) U/L ALT (4-34) U/L Stool Occult Blood Positive H (Negative) 06/25/20 Range/Units 11:00 WBC (3.8-10.6) k/uL RBC (3.80-5.40) m/uL MCV (80.0-100.0) fL Neutrophils # (1.3-7.7) k/uL PT (9.0-12.0) sec INR (<1.2) APTT (22.0-30.0) sec Carbon Dioxide 34 H (22-30) mmol/L BUN 42 H (7-17) mg/dL Creatinine 1.28 H (0.52-1.04) mg/dL Glucose 115 H (74-99) mg/dL AST 92 H (14-36) U/L ALT 74 H (4-34) U/L Stool Occult Blood (Negative) Thrombosis Risk Factor Assmnt - Choose All That Apply Each Risk Factor Represents 3 Points: Age 75 years or older Thrombosis Risk Factor Assessment Total Risk Factor Score: 3 Thrombosis Risk Factor Assessment Level: Moderate Risk
[2020-06-25] MEDS ORDERED: ALBUTEROL NEBULIZED 2.5 MG/3 ML INHALATION SCH (20:00)
[2020-06-25] MEDS: LATANOPROST 0.005% OPHTH DROPS 2.5 ML BTL BOTH EYES SCH (23:55)
[2020-06-25] MEDS: PANTOPRAZOLE 40 MG TABLET PO SCH (23:55)
[2020-06-26] MEDS: SODIUM CHLORIDE 0.9% 1,000 ML IV SCH ×2 (02:59→15:50)
[2020-06-26 06:29] LABS: Basophils % (A) 0 %; Eosinophils # (A) 0.1 k/uL (0-0.7); Eosinophils % (A) 1 %; HGB 11.1 gm/dL (11.4-16.0); Lymphocytes # (A) 1.8 k/uL (1.0-4.8); Lymphocytes % (A) 18 %; MCH 33.7 pg (25.0-35.0); MCHC 32.5 g/dL (31.0-37.0); MCV 103.5 fL (80.0-100.0); Macrocytosis Slight; Mean Platelet Volume 8.8; Monocytes # (A) 0.6 k/uL (0-1.0); Monocytes % (A) 6 %; Neutrophils # (A) 7.5 k/uL (1.3-7.7); Neutrophils % (A) 73 %; Platelet Count 182 k/uL (150-450); RBC 3.28 m/uL (3.80-5.40); RDW 13.7 % (11.5-15.5); WBC 10.2 k/uL (3.8-10.6)
[2020-06-26] MEDS: ALBUTEROL NEBULIZED 2.5 MG/3 ML INHALATION SCH ×3 (08:21→19:55)
[2020-06-26] MEDS: SYMBICORT 160-4.5 MCG INHALER INHALATION SCH ×2 (08:21→19:55)
[2020-06-26] MEDS: PANTOPRAZOLE 40 MG TABLET PO SCH ×2 (08:25→18:32)
[2020-06-26] MEDS: lisinopriL 10 MG TAB PO SCH (08:26)
[2020-06-26] MEDS: VERAPAMIL SR 240 MG TABLET.ER PO SCH (08:26)
[2020-06-26] MEDS: DICYCLOMINE 10 MG CAP PO SCH ×4 (08:26→21:59)
[2020-06-26] MEDS: PRAVASTATIN SODIUM 40 MG TAB PO SCH (08:26)
[2020-06-26] MEDS: ASPIRIN 81 MG PO SCH (10:58)
--- NOTE | 2020-06-26 13:46 | P.CONS ---
History of Present Illness - Reason for Consult Consult date: 06/26/20 GI bleed Requesting physician: Jovani Pelaez - Chief Complaint Weakness, blood per rectum - History of Present Illness 74-year-old female with multiple medical comorbidities including GERD, hyperlipidemia, hypertension, osteoarthritis, history of fibrillation, diverticulosis, and hemorrhoids who presented to the hospital with constellation of symptoms including weakness and bright red blood per rectum. The patient had been at her daughter's house where she was reporting feeling extremely weak and fatigued. Patient had multiple episodes of nausea and vomiting and was unable to tolerate her chronic medications. Patient reports associated diarrhea with her symptoms and states that she had some bright red blood per rectum which is common in the setting of diarrhea as she has a known history of hemorrhoids. Previously she has undergone evaluation with EGD and colonoscopy in 2020 with the surgical service with findings of internal hemorrhoids, external hemorrh oids, arteriovenous malformation, polypectomy and erosive esophagitis and gastritis on EGD. Currently the patient has had no further GI bleeding. She is denying any abdominal pain at this time. Hemoglobin is stable at 11.1. Testing for Clostridium difficile infection was negative. Stool testing was positive for blood. Review of Systems REVIEW OF SYSTEMS: CONSTITUTIONAL: Denies any fevers, chills, but she had been reporting weakness and fatigue generalized on presentation. CARDIOVASCULAR: Denies any chest pain, palpitations high or low blood pressures RESPIRATORY: Denies any shortness of breath, hemoptysis or cough. GENITOURINARY: No dysuria or hematuria. MUSCULOSKELETAL: No weakness reported. SKIN: Denies any new rashes or lesions, jaundice or pallor. PSYCHIATRIC: Denies any depression or anxiety. NEUROLOGY: Denies headache, denies any new focal deficits. EARS/NOSE/THROAT: No recent hearing change but the patient is hard of hearing at baseline she denies any congestion, nasal discharge or sore throat. EYES: No pain in eyes, discharge or change in vision. GASTROINTESTINAL: As per HPI. Past Medical History Past Medical History: Atrial Fibrillation, Asthma, COPD, GERD/Reflux, GI Bleed, Hyperlipidemia, Hypertension, Osteoarthritis (OA), Pneumonia, Vascular Disorder Additional Past Medical History / Comment(s): Pt is very hard of hearing, she wears a hearing aide and normally reads lips-she reads and writes. Other Hx: Bronchitis, gastric ulcer, diverticular disease, lower GI bleed/AV malformation with ablation, benign colon polyp, borderline hyperlipidemia, arthritis mostly in back, slight bilateral glaucoma, varicosities. History of Any Multi-Drug Resistant Organisms: None Reported Past Surgical History: Adenoidectomy, Appendectomy, Heart Catheterization, Hysterectomy, Tonsillectomy, Tubal Ligation Additional Past Surgical History / Comment(s): Colonoscopy/benign polypectomy/AV malformation ablation, bilateral cataract removals, watchmen procedure Past Anesthesia/Blood Transfusion Reactions: No Reported Reaction Additional Past Anesthesia/Blood Transfusion Reaction / Comm: never recieved blood before. Past Psychological History: No Psychological Hx Reported Additional Psychological History / Comment(s): [place] LIVES AL[place] IN [place] SHE IS HEARING IMPAIRED. SHE HAS PULL CORDS IN HER HOME. SHE USES NO ASSISTIVE DEVICE. SHE DRIVES OCCASIONALLY. HER GRANDDAUGHTER KVNG VISITS DAILY.. Smoking Status: Never smoker, Second hand smoke exposure Past Alcohol Use History: None Reported Past Drug Use History: None Reported - Past Family History Father Family Medical History: COPD Additional Family Medical History / Comment(s): EMPHYSEMA Mother Family Medical History: Osteoarthritis (OA) Additional Family Medical History / Comment(s): EMPHYSEMA, BOWEL OBSTRUCTION/COLOSTOMY Medications and Allergies Home Medications Medication Instructions Recorded Confirmed Type Baclofen [Lioresal] 10 mg PO TID PRN 07/20/15 06/25/20 History Dabigatran [Pradaxa] 150 mg PO BID 07/20/15 06/25/20 History Hydrocodone/Acetaminophen [[place] 1 tab PO QID PRN 07/20/15 06/25/20 History 7.5-325] Moexipril [Univasc] 7.5 mg PO DAILY 07/20/15 06/25/20 History Pravastatin Sodium [Pravachol] 40 mg PO DAILY 07/20/15 06/25/20 History Latanoprost [Xalatan 0.005%] 2 drop BOTH EYES HS 10/15/16 06/25/20 History Nadolol 40 mg PO DAILY 10/15/16 06/25/20 History Albuterol Nebulized [Ventolin 2.5 mg INHALATION RT-TID 08/11/17 06/25/20 History Nebulized] Budesonide/Formoterol Fumarate 2 puff INHALATION RT-BID 08/11/17 06/25/20 History [Symbicort 160-4.5 Mcg Inhaler] Albuterol Inhaler [Ventolin Hfa 1 puff INHALATION RT-QID PRN 12/03/19 06/25/20 History Inhaler] Denosumab [Prolia] 60 mg SQ Q180D 04/06/20 06/25/20 History Diclofenac Sodium [Voltaren Gel] 2 gram TOPICAL BID PRN 04/06/20 06/25/20 History Verapamil HCl [Verapamil ER] 240 mg PO DAILY 04/06/20 06/25/20 History Aspirin EC [Ecotrin Low Dose] 81 mg PO DAILY 06/25/20 06/25/20 History Hydrochlorothiazide 12.5 mg PO DAILY 06/25/20 06/25/20 History [hydroCHLOROthiazide] Omeprazole 20 mg PO DAILY 06/25/20 06/25/20 History Allergies Allergy/AdvReac Type Severity Reaction Status Date / Time No Known Allergies Allergy Verified 06/25/20 11:31 Physical Exam Vitals: Vital Signs Temp Pulse Pulse Resp BP BP Pulse Ox 06/26/20 08:35 106 H 06/26/20 08:22 100 98 06/26/20 07:00 97.8 F 116 H 18 95/58 100 06/26/20 02:00 98.5 F 104 H 16 91/64 98 06/25/20 20:01 100 06/25/20 20:00 97.7 F 77 18 115/69 98 06/25/20 19:52 100 06/25/20 16:36 100 06/25/20 16:23 100 06/25/20 15:00 98.1 F 70 18 112/75 100 06/25/20 14:32 98.2 F 107 H 18 106/64 99 06/25/20 13:11 102 H 18 130/70 97 06/25/20 12:30 100 19 143/109 91 L 06/25/20 12:00 109 H 12 141/65 88 L 06/25/20 11:44 96 16 93 L Intake and Output 06/25/20 06/26/20 06/26/20 22:59 06:59 14:59 Other: Voiding Method Bedside Commode Diaper # Voids 1 On physical examination, patient appears comfortable in no apparent distress. HEAD: Normocephalic, atraumatic. EYES: No scleral icterus. No conjunctival injection. MOUTH: No lesions, tongue midline. NECK: Trachea midline, no gross abnormalities. CHEST: Clear to auscultation with no wheezing or rhonchi appreciated. HEART: S1-S2 appreciated, regularly irregular. ABDOMEN: Soft, nontender to palpation. Bowel sounds are positive. No organomegaly. No guarding or rigidity. EXTREMITIES: No pedal edema. SKIN: No rashes, no jaundice. NEUROLOGIC: Alert and oriented x3. Patient is hard of hearing a baseline but able to read lips. Results CBC & Chem 7: 06/26/20 05:43 06/25/20 11:00 Labs: Abnormal Lab Results - Last 24 Hours (Table) 06/25/20 06/26/20 Range/Units 11:00 05:43 RBC 3.28 L (3.80-5.40) m/uL Hgb 11.1 L (11.4-16.0) gm/dL MCV 103.5 H (80.0-100.0) fL PT 17.9 H (9.0-12.0) sec INR 1.8 H (<1.2) APTT 52.3 H (22.0-30.0) sec CT scan - abdomen: report reviewed (Computed tomography scan of the abdomen with findings of ecchymosis and possible colitis.) Assessment and Plan (1) Colitis Narrative/Plan: 75-year-old female who presented to the hospital for constellation of complaints including weakness and fatigue, nausea, vomiting, diarrhea and abdominal pain. Patient had been feeling weak and unable to take her medications due to nausea and vomiting. She reported diarrhea with associated bright red blood per rectum which she states is happening in the past secondary to hemorrhoids. She did have EGD and colonoscopy performed in 2019 with findings of esophagitis, gastritis and as previously had polypectomy and AV malformation noted as well as internal and external hemorrhoids. She states that she often will see blood per rectum in the setting of diarrhea. Overall the patient is feeling improved today. Computed tomography scan did show ecchymoses and questionable colitis, suspicion is for possible infectious colitis, with inflammatory process unlikely given recent colonoscopy and ischemic colitis also possible although less likely. Current Visit: Yes Status: Acute Code(s): K52.9 - NONINFECTIVE GASTROENTERITIS AND COLITIS, UNSPECIFIED SNOMED Code(s): 231165312 (2) Abdominal pain Current Visit: Yes Status: Acute Code(s): R10.9 - UNSPECIFIED ABDOMINAL PAIN SNOMED Code(s): 04953436 (3) GI bleeding Current Visit: Yes Status: Acute Code(s): K92.2 - GASTROINTESTINAL HE MORRHAGE, UNSPECIFIED SNOMED Code(s): 55754107 Plan: Supportive care Okay for liquid diet, patient as tolerated and is asking for diet to be advanced and will be initiated on a heart healthy fiber diet as tolerated Continue to monitor CBC, BMP, LFTs We'll initiate a short course of antibiotic therapy given possibility of colitis noted on computed tomography scan with ceftriaxone and Flagyl Surgical service has been consulted to see the patient and having established relationship we'll defer any endoscopic evaluation to their service Continue other medical management per primary team Continue to hold anticoagulation until no further bleeding Thank you for allowing us to be to participate in the care of the patient
--- NOTE | 2020-06-26 14:06 | P.CRDCN ---
History of Present Illness Consult date: 06/26/20 History of present illness: HISTORY OF PRESENT ILLNESS: This is a 75-year-old female with a past medical history significant for atrial fibrillation, COPD, hypertension, hyperlipidemia, and previous GI bleed. Patient is unsure who she follows with outpatient. However previous cardiac consultation states that patient follows with Dr. Gonzalez. We have been asked to see the patient in consultation for GI bleed with recent watchman procedure. Jose Alberto loya examined at the bedside. Patient is very hard of hearing but is able to read lips. Patient states over the last 2 days she has noticed bright red blood on the tissue when she wipes. She states there was not blood every single time she used the bathroom and it was only occasionally. She reports having diarrhea over the last couple days. Patient had a watchman procedure performed by Dr. Cecy tavares at [facility] on 05/27/2020. The patient was prescribed aspirin and Pradaxa post procedure. The patient states she has a history of GI bleeding in the past and her daughters brought her to the hospital because they were concerned. The patient denies any chest pain or pressure. She denies any shortness of breath. The patient had an EGD and colonoscopy performed in January [address] Dan. Colonoscopy revealed internal hemorrhoids, external hemorrhoids, and colon polyps. EGD revealed erosive esophagitis and chronic gastritis. EKG reveals atrial fibrillation with controlled ventricular rate prolonged QTC of 487 CT abdomen and pelvis: Possible underlying colitis Laboratory data: WBC 10.2. Hemoglobin on admission 12.0. Repeat 11.1. Platelet count 182. Sodium 141. Potassium 3.6. BUN 42. Creatinine 1.28. Lactic acid 1.8. AST 92. ALT 74. Troponin negative 1. Stool for occult blood positive. Current home cardiac medications include verapamil 240 mg daily, pravastatin 40 mg daily, Nadolol 40 mg daily, Moexipril 7.5 mg daily, hydrochlorothiazide 12.5 mg daily, Pradaxa 150 mg twice a day, aspirin 81 mg daily Most recent echocardiogram obtained in August 2018 reveals ejection fraction 55-60% and mild tricuspid regurgitation. Patient underwent Lexiscan stress test in August 2018 which was negative for reversible ischemia REVIEW OF SYSTEMS: At the time of my exam: CONSTITUTIONAL: Denies fever or chills. HEENT: Denies blurred vision, vision changes, or eye pain. Denies hemoptysis CARDIOVASCULAR: Denies chest pain. Denies orthopnea. Denies PND. Denies palpitations RESPIRATORY: Denies shortness of breath. GASTROINTESTINAL: Denies abdominal pain. Denies nausea or vomiting. HEMATOLOGIC: Denies bleeding disorders. GENITOURINARY: Denies any blood in urine. SKIN: Denies pruitis. Denies rash. PHYSICAL EXAM: VITAL SIGNS: Reviewed. GENERAL: Well-developed in no acute distress. Hard of hearing. HEENT: Head is normocephalic. Pupils are equal, round. Sclerae anicteric. Mucous membranes of the mouth are moist. Neck supple. No JVD or thyromegaly LUNGS: Respirations even and unlabored. Lungs essentially clear to auscultation bilaterally. HEART: Irregular rate and rhythm. S1 and S2 heard. ABDOMEN: Soft. Nondistended. Nontender. EXTREMITIES: Normal range of motion. No clubbing or cyanosis. Peripheral pulses intact. No lower extremity edema NEUROLOGIC: Awake and alert. Oriented x 3. ASSESSMENT: Intermittent bright red blood per rectum, possible GI bleed with recent EGD/colonoscopy January 2020 Diarrhea 2 days, possible colitis per computed tomography scan Paroxysmal atrial fibrillation with recent watchman procedure at [place], 05/27/2020 Hypertension Hyperlipidemia COPD History of GI bleed GERD PLAN: Continue home cardiac medications Continue to hold Pradaxa. However resume aspirin 81 mg daily due to recent watchman procedure Initiate telemetry monitoring Continue to monitor hemoglobin GI and general surgery consulted. Await evaluation Further recommendations pending patient course Nurse practitioner note has been reviewed by physician. Signing provider agrees with the documented findings, assessment, and plan of care. Past Medical History Past Medical History: Atrial Fibrillation, Asthma, COPD, GERD/Reflux, GI Bleed, Hyperlipidemia, Hypertension, Osteoarthritis (OA), Pneumonia, Vascular Disorder Additional Past Medical History / Comment(s): Pt is very hard of hearing, she wears a hearing aide and normally reads lips-she reads and writes. Other Hx: Bronchitis, gastric ulcer, diverticular disease, lower GI bleed/AV malformation with ablation, benign colon polyp, borderline hyperlipidemia, arthritis mostly in back, slight bilateral glaucoma, varicosities. History of Any Multi-Drug Resistant Organisms: None Reported Past Surgical History: Adenoidectomy, Appendectomy, Heart Catheterization, Hysterectomy, Tonsillectomy, Tubal Ligation Additional Past Surgical History / Comment(s): Colonoscopy/benign polypectomy/AV malformation ablation, bilateral cataract removals, watchmen procedure Past Anesthesia/Blood Transfusion Reactions: No Reported Reaction Additional Past Anesthesia/Blood Transfusion Reaction / Comment(s): never recieved blood before. Past Psychological History: No Psychological Hx Reported Additional Psychological History / Comment(s): PT LIVES ALONE IN [place] SHE IS HEARING IMPAIRED. SHE HAS PULL CORDS IN HER HOME. SHE USES NO ASSISTIVE DEVICE. SHE DRIVES OCCASIONALLY. HER GRANDDAUGHTER KVNG VISITS DAILY.. Smoking Status: Never smoker, Second hand smoke exposure Past Alcohol Use History: None Reported Past Drug Use History: None Reported - Past Family History Father Family Medical History: COPD Additional Family Medical History / Comment(s): EMPHYSEMA Mother Family Medical History: Osteoarthritis (OA) Additional Family Medical History / Comment(s): EMPHYSEMA, BOWEL OBSTRUCTION/COLOSTOMY Medications and Allergies Home Medications Medication Instructions Recorded Confirmed Type Baclofen [Lioresal] 10 mg PO TID PRN 07/20/15 06/25/20 History Dabigatran [Pradaxa] 150 mg PO BID 07/20/15 06/25/20 History Hydrocodone/Acetaminophen [[place] 1 tab PO QID PRN 07/20/15 06/25/20 History 7.5-325] Moexipril [Univasc] 7.5 mg PO DAILY 07/20/15 06/25/20 History Pravastatin Sodium [Pravachol] 40 mg PO DAILY 07/20/15 06/25/20 History Latanoprost [Xalatan 0.005%] 2 drop BOTH EYES HS 10/15/16 06/25/20 History Nadolol 40 mg PO DAILY 10/15/16 06/25/20 History Albuterol Nebulized [Ventolin 2.5 mg INHALATION RT-TID 08/11/17 06/25/20 History Nebulized] Budesonide/Formoterol Fumarate 2 puff INHALATION RT-BID 08/11/17 06/25/20 History [Symbicort 160-4.5 Mcg Inhaler] Albuterol Inhaler [Ventolin Hfa 1 puff INHALATION RT-QID PRN 12/03/19 06/25/20 History Inhaler] Denosumab [Prolia] 60 mg SQ Q180D 04/06/20 06/25/20 History Diclofenac Sodium [Voltaren Gel] 2 gram TOPICAL BID PRN 04/06/20 06/25/20 History Verapamil HCl [Verapamil ER] 240 mg PO DAILY 04/06/20 06/25/20 History Aspirin EC [Ecotrin Low Dose] 81 mg PO DAILY 06/25/20 06/25/20 History Hydrochlorothiazide 12.5 mg PO DAILY 06/25/20 06/25/20 History [hydroCHLOROthiazide] Omeprazole 20 mg PO DAILY 06/25/20 06/25/20 History Allergies Allergy/AdvReac Type Severity Reaction Status Date / Time No Known Allergies Allergy Verified 06/25/20 11:31 Physical Exam Vitals: Vital Signs Temp Pulse Pulse Resp BP BP Pulse Ox 06/26/20 12:01 102 H 06/26/20 11:50 99 06/26/20 08:35 106 H 06/26/20 08:22 100 98 06/26/20 07:00 97.8 F 116 H 18 95/58 100 06/26/20 02:00 98.5 F 104 H 16 91/64 98 06/25/20 20:01 100 06/25/20 20:00 97.7 F 77 18 115/69 98 06/25/20 19:52 100 06/25/20 16:36 100 06/25/20 16:23 100 06/25/20 15:00 98.1 F 70 18 112/75 100 06/25/20 14:32 98.2 F 107 H 18 106/64 99 Intake and Output 06/25/20 06/26/20 06/26/20 22:59 06:59 14:59 Other: Voiding Method Bedside Commode Diaper # Voids 1 Results 06/26/20 05:43 06/25/20 11:00 CBC 06/26/20 Range/Units 05:43 WBC 10.2 (3.8-10.6) k/uL RBC 3.28 L (3.80-5.40) m/uL Hgb 11.1 L (11.4-16.0) gm/dL Hct 34.0 (34.0-46.0) % Plt Count 182 (150-450) k/uL Current Medications Generic Name Dose Route Start Last Admin Trade Name Freq PRN Reason Stop Dose Admin Acetaminophen 650 mg 06/25/20 12:55 Acetaminophen Tab 325 Mg Tab PO Q6HR PRN Mild Pain or Fever > 100.5 Hydrocodone Bitart/Acetaminophen 1 each 06/25/20 12:55 06/25/20 16:18 Hydrocodone/Apap 5-325mg 1 Each Tab PO 1 each Q4HR PRN Administration Moderate Pain Albuterol Sulfate 2.5 mg 06/25/20 14:00 06/26/20 11:50 Albuterol Nebulized 2.5 Mg/3 Ml INHALATION 2.5 mg RT-TID RIGOBERTO Administration Albuterol Sulfate 2.5 mg 06/25/20 14:40 Albuterol Nebulized 2.5 Mg/3 Ml INHALATION RT-QID PRN Shortness Of Breath Aspirin 81 mg 06/26/20 10:00 06/26/20 10:58 Aspirin 81 Mg PO 81 mg DAILY RIGOBERTO Administration Baclofen 10 mg 06/25/20 14:40 06/25/20 16:17 Baclofen 10 Mg Tab PO 10 mg TID PRN Administration Muscle Spasm Budesonide/Formoterol Fumarate 2 puff 06/25/20 15:00 06/26/20 08:21 Symbicort 160-4.5 Mcg Inhaler INHALATION 2 puff RT-BID RIGOBERTO Administration Diclofenac Sodium 2 gm 06/25/20 14:40 Diclofenac Sodium Gel 100 Gm Tube TOPICAL BID PRN Pain Dicyclomine HCl 10 mg 06/25/20 15:00 06/26/20 08:26 Dicyclomine 10 Mg Cap PO 10 mg QID RIGOBERTO Administration Sodium Chloride 1,000 mls @ 75 mls/hr 06/25/20 13:00 06/26/20 02:59 Saline 0.9% IV 75 mls/hr .[id number] RIGOBERTO Administration Ceftriaxone Sodium 1 gm/ 50 mls @ 100 mls/hr 06/26/20 13:45 Sodium Chloride IVPB Q24HR RIGOBERTO Latanoprost 2 drops 06/25/20 21:00 06/25/20 23:55 Latanoprost 0.005% Ophth Drops 2.5 Ml Btl BOTH EYES 2 drops HS RIGOBERTO Administration Lisinopril 10 mg 06/26/20 09:00 06/26/20 08:26 Lisinopril 10 Mg Tab PO 10 mg DAILY RIGOBERTO Administration Lorazepam 0.5 mg 06/25/20 12:55 Lorazepam 2 Mg/Ml Inj IV Q6HR PRN Anxiety Metronidazole 500 mg 06/26/20 21:00 Metronidazole 500 Mg Tab PO BID RIGOBERTO Nadolol 40 mg 06/26/20 09:00 06/26/20 08:26 Nadolol 20 Mg Tab PO 40 mg DAILY RIGOBERTO Administration Naloxone HCl 0.2 mg 06/25/20 12:55 Naloxone 0.4 Mg/Ml 1 Ml Vial IV Q2M PRN Opioid Reversal Ondansetron HCl 4 mg 06/25/20 12:55 Ondansetron 4 Mg/2 Ml Vial IVP Q8HR PRN Nausea And Vomiting Pantoprazole Sodium 40 mg 06/25/20 19:45 06/26/20 08:25 Pantoprazole 40 Mg Tablet PO 40 mg AC-BID RIGOBERTO Administration Pravastatin Sodium 40 mg 06/26/20 09:00 06/26/20 08:26 Pravastatin Sodium 40 Mg Tab PO 40 mg DAILY RIGOBERTO Administration Tramadol HCl 50 mg 06/25/20 12:55 Tramadol 50 Mg Tab PO Q6H PRN Moderate Pain Verapamil HCl 240 mg 06/26/20 09:00 06/26/20 08:26 Verapamil Sr 240 Mg Tablet.Er PO 240 mg DAILY RIGOBERTO Administration Intake and Output 06/25/20 06/26/20 06/26/20 22:59 06:59 14:59 Other: Voiding Method Bedside Commode Diaper # Voids 1 06/26/20 05:43 06/25/20 11:00
--- NOTE | 2020-06-26 14:52 | XR ---
Left hip HISTORY: Pain and bruising, trauma 2 views the left hip, correlation to CT abdomen 06/26/2020 There is soft tissue swelling present. Bone mineralization is reduced. Joint spaces and alignment are maintained. There are vascular calcifications noted. Some calcification in the soft tissues laterall y is indeterminate. IMPRESSION: No fracture or dislocation.
[2020-06-26] MEDS: HYDROcodone/APAP 5-325MG 1 EACH TAB PO PRN (14:57)
--- NOTE | 2020-06-26 15:10 | CT ---
EXAMINATION TYPE: CT abdomen wo con DATE OF EXAM: 06/26/2020 COMPARISON: CT 06/25/2020 HISTORY: Acute kidney injury CT DLP: 168.5 mGycm Automated exposure control for dose reduction was used. TECHNIQUE: Helical acquisition of images was performed from the lung bases through the top of iliac crest to include entire abdomen. CONTRAST: Performed without Oral Contrast and without IV contrast. FINDINGS: Pericardial thickening or possible pericardial effusion is again noted. There is some motio n on exam. LUNG BASES: No significant abnormality is appreciated. LIVER/GB: No significant abnormality is appreciated. PANCREAS: No significant abnormality is seen. SPLEEN: No significant abnormality is seen. ADRENALS: No significant abnormality is seen. KIDNEYS: No significant interval change is seen. Right kidney measures approximately 7.8 cm, the left kidney measures approximately 9 cm, no evident hydronephrosis, no ureteral calculus evident BOWEL: Descending colon appears thickened, question some surrounding inflammatory change. LYMPH NODES: No significant abnormality is appreciated. OSSEOUS STRUCTURES: No significant interval change is seen. FREE AIR: No Free Air visible ASCITES: None visible. RETROPERITONEAL ADENOPATHY: No Retroperitoneal Adenopathy visible. OTHER: Atheromatous change present within the aorta IMPRESSION: CORRELATE FOR COLITIS. NONCONTRAST EXAM. POSSIBLE PERICARDIAL THICKENING OR PERICARDIAL EFFUSION. BENITO AL SIZES DESCRIBED.
--- NOTE | 2020-06-26 15:22 | P.CNOR ---
History of Present Illness - [facility] Consult date: 06/26/20 Consult reason: joint pain (Left hip pain) History of present illness: Patient is a 75-year-old female who was brought to [facility] for evaluation of weakness, decrease of appetite and history of GI bleed. She was admitted under internal medicine, there've been multiple consults placed for the patient. She has a relatively complicated medical history. Patient's family was present and stated that there was a fall about 2 days ago that resulted in significant bruising of the upper aspect of the left lower extremity and buttock region, our orthopedic team was then consulted. Patient was evaluated today at bedside, her daughter was also present. She was just returning from x-ray at that time. Patient is very hard of hearing, but she does read lips well and I was able to communicate with her and her daughter at bedside. The fall did occur 2 days ago, it wasn't visualized. She does live alone, but has multiple family members in town that do check on her. She states that she has minimal discomfort of the left lower extremity and the leg region. She denies any pain involving the right lower extremity. She denies any new onset upper extremity pain bilaterally. She does have a history of chronic low back pain, she has received epidural injections for these in the past. She has no new onset cervical or thoracic pain. Patient denies any previous history of orthopedic surgery involving the left lower extremity. She has does have a history of epidural injections involving the lumbar spine. She has a known GI history is having further workup for that currently. She is on blood thinners for A. fib. Review of Systems Constitutional: Reports as per [facility] Past Medical History Past Medical History: Atrial Fibrillation, Asthma, COPD, GERD/Reflux, GI Bleed, Hyperlipidemia, Hypertension, Osteoarthritis (OA), Pneumonia, Vascular Disorder Additional Past Medical History / Comment(s): Pt is very hard of hearing, she wears a hearing aide and normally reads lips-she reads and writes. Other Hx: Bronchitis, gastric ulcer, diverticular disease, lower GI bleed/AV malformation with ablation, benign colon polyp, borderline hyperlipidemia, arthritis mostly in back, slight bilateral glaucoma, varicosities. History of Any Multi-Drug Resistant Organisms: None Reported Past Surgical History: Adenoidectomy, Appendectomy, Heart Catheterization, Hysterectomy, Tonsillectomy, Tubal Ligation Additional Past Surgical History / Comment(s): Colonoscopy/benign polypectomy/AV malformation ablation, bilateral cataract removals, watchmen procedure Past Anesthesia/Blood Transfusion Reactions: No Reported Reaction Additional Past Anesthesia/Blood Transfusion Reaction / Comm: never recieved blood before. Past Psychological History: No Psychological Hx Reported Additional Psychological History / Comment(s): [place] L[place] SHE IS HEARING IMPAIRED. SHE HAS PULL CORDS IN HER HOME. SHE USES NO ASSISTIVE DEVICE. SHE DRIVES OCCASIONALLY. HER GRANDDAUGHTER KVNG VISITS DAILY.. Smoking Status: Never smoker, Second hand smoke exposure Past Alcohol Use History: None Reported Past Drug Use History: None Reported - Past Family History Father Family Medical History: COPD Additional Family Medical History / Comment(s): EMPHYSEMA Mother Family Medical History: Osteoarthritis (OA) Additional Family Medical History / Comment(s): EMPHYSEMA, BOWEL OBSTRUCTION/COLOSTOMY Medications and Allergies Home Medications Medication Instructions Recorded Confirmed Type Baclofen [Lioresal] 10 mg PO TID PRN 07/20/15 06/25/20 History Dabigatran [Pradaxa] 150 mg PO BID 07/20/15 06/25/20 History Hydrocodone/Acetaminophen [[place] 1 tab PO QID PRN 07/20/15 06/25/20 History 7.5-325] Moexipril [Univasc] 7.5 mg PO DAILY 07/20/15 06/25/20 History Pravastatin Sodium [Pravachol] 40 mg PO DAILY 07/20/15 06/25/20 History Latanoprost [Xalatan 0.005%] 2 drop BOTH EYES HS 10/15/16 06/25/20 History Nadolol 40 mg PO DAILY 10/15/16 06/25/20 History Albuterol Nebulized [Ventolin 2.5 mg INHALATION RT-TID 08/11/17 06/25/20 History Nebulized] Budesonide/Formoterol Fumarate 2 puff INHALATION RT-BID 08/11/17 06/25/20 History [Symbicort 160-4.5 Mcg Inhaler] Albuterol Inhaler [Ventolin Hfa 1 puff INHALATION RT-QID PRN 12/03/19 06/25/20 History Inhaler] Denosumab [Prolia] 60 mg SQ Q180D 04/06/20 06/25/20 History Diclofenac Sodium [Voltaren Gel] 2 gram TOPICAL BID PRN 04/06/20 06/25/20 History Verapamil HCl [Verapamil ER] 240 mg PO DAILY 04/06/20 06/25/20 History Aspirin EC [Ecotrin Low Dose] 81 mg PO DAILY 06/25/20 06/25/20 History Hydrochlorothiazide 12.5 mg PO DAILY 06/25/20 06/25/20 History [hydroCHLOROthiazide] Omeprazole 20 mg PO DAILY 06/25/20 06/25/20 History Allergies Allergy/AdvReac Type Severity Reaction Status Date / Time No Known Allergies Allergy Verified 06/25/20 11:31 Physical Examination Left lower extremity: No obvious open lesions or sores are present throughout extremity Ecchymosis is present involving the upper aspect of the left lower extremity wrapping around the buttock region, there is soft tissue swelling present There is no pain in the groin with logroll maneuver, she is able to straight leg raise Tenderness with palpation in the area of bruising, there is no pain over the greater trochanter. There is no tenderness with palpation of the knee, no effusion is present. Flexion and extension of the knee are full, no significant strength deficits appreciated She is nontender with palpation of the lower leg, foot or ankle Plantar flexion, dorsiflexion, EHL, FHL are intact Calf is soft, tenderness with palpation Skin is warm to touch General orthopedic exam: Patient was visualized standing from her wheelchair, she was able to get up with no assistance and move with no significant difficulties. There were no obvious pain symptoms reproduced Range of motion of all major muscle groups intact in the right lower extremity, there is no point tenderness appreciated of the right lower extremity. Logroll maneuver the hip reproduces no pain, she is able to straight leg raise. Sensation to light touch is intact throughout the extremity, skin is warm to touch. Calf is soft, no tenderness with palpation Results - Labs Labs: Abnormal Lab Results - Last 24 Hours (Table) 06/26/20 Range/Units 05:43 RBC 3.28 L (3.80-5.40) m/uL Hgb 11.1 L (11.4-16.0) gm/dL MCV 103.5 H (80.0-100.0) fL H & H 06/25/20 06/26/20 Range/Units 11:00 05:43 Hgb 12.0 11.1 L (11.4-16.0) gm/dL Hct 35.8 34.0 (34.0-46.0) % Coagulation 06/25/20 Range/Units 11:00 INR 1.8 H (<1.2) Result Diagrams: 06/26/20 05:43 06/25/20 11:00 - Diagnostic results Hip x-ray: report reviewed, image reviewed (Reports along with images reviewed of the left hip. Minimal last arthritic changes are present, no acute fractures or dislocations are appreciated.) Assessment and Plan Assessment: Left hip/buttock contusion Left hip/buttock hematoma Status post fall from standing Chronic low back pain Other medical comorbidities Plan: I was able to discuss the case, including the physical exam findings and imaging studies my attention Dr. Galvan. No orthopedic surgical intervention recommended at this time Recommend daily skin checks of the affected area, icing of the area Computed tomography scan of the abdomen and pelvis report was reviewed, no obvious fractures involving the pelvis were noted Recommend weight-bear as tolerated with walker at all times GI and DVT prophylaxis per primary medical service PT/OT evaluation Other infertility medical assistant and recommendations We'll check in on patient while she is in hospital, please contact us with any further questions Time with Patient: Less than 30
--- NOTE | 2020-06-26 17:24 | P.GSCN ---
History of Present Illness Consult date: 06/26/20 Reason for Consult: Rectal bleeding History of present illness: This a 75-year-old female who's been to Dr. Dixon alvarado. Patient being work ed up for weakness. She's had some with rectal bleeding. She has previously undergone colonoscopy by Dr. Brewster in March 2020. Past Medical History Past Medical History: Atrial Fibrillation, Asthma, COPD, GERD/Reflux, GI Bleed, Hyperlipidemia, Hypertension, Osteoarthritis (OA), Pneumonia, Vascular Disorder Additional Past Medical History / Comment(s): Pt is very hard of hearing, she wears a hearing aide and normally reads lips-she reads and writes. Other Hx: Bronchitis, gastric ulcer, diverticular disease, lower GI bleed/AV malformation with ablation, benign colon polyp, borderline hyperlipidemia, arthritis mostly i n back, slight bilateral glaucoma, varicosities. History of Any Multi-Drug Resistant Organisms: None Reported Past Surgical History: Adenoidectomy, Appendectomy, Heart Catheterization, Hysterectomy, Tonsillectomy, Tubal Ligation Additional Past Surgical History / Comment(s): Colonoscopy/benign polypectomy/AV malformation ablation, bilateral cataract removals, watchmen procedure Past Anesthesia/Blood Transfusion Reactions: No Reported Reaction Additional Past Anesthesia/Blood Transfusion Reaction / Comm: never recieved blood before. Past Psychological History: No Psychological Hx Reported Additional Psychological History / Comment(s): PT LIVES ALONE IN [facility]. SHE IS HEARING IMPAIRED. SHE HAS PULL CORDS IN HER HOME. SHE USES NO ASSISTIVE DEVICE. SHE DRIVES OCCASIONALLY. HER GRANDDAUGHTER KVNG VISITS DAILY.. Smoking Status: Never smoker, Second hand smoke exposure Past Alcohol Use History: None Reported Past Drug Use History: None Reported - Past Family History Father Family Medical History: COPD Additional Family Medical History / Comment(s): EMPHYSEMA Mother Family Medical History: Osteoarthritis (OA) Additional Family Medical History / Comment(s): EMPHYSEMA, BOWEL OBSTRUCTION/COLOSTOMY Medications and Allergies Home Medications Medication Instructions Recorded Confirmed Type Baclofen [Lioresal] 10 mg PO TID PRN 07/20/15 06/25/20 History Dabigatran [Pradaxa] 150 mg PO BID 07/20/15 06/25/20 History Hydrocodone/Acetaminophen [[place] 1 tab PO QID PRN 07/20/15 06/25/20 History 7.5-325] Moexipril [Univasc] 7.5 mg PO DAILY 07/20/15 06/25/20 History Pravastatin Sodium [Pravachol] 40 mg PO DAILY 07/20/15 06/25/20 History Latanoprost [Xalatan 0.005%] 2 drop BOTH EYES HS 10/15/16 06/25/20 History Nadolol 40 mg PO DAILY 10/15/16 06/25/20 History Albuterol Nebulized [Ventolin 2.5 mg INHALATION RT-TID 08/11/17 06/25/20 History Nebulized] Budesonide/Formoterol Fumarate 2 puff INHALATION RT-BID 08/11/17 06/25/20 Hist ory [Symbicort 160-4.5 Mcg Inhaler] Albuterol Inhaler [Ventolin Hfa 1 puff INHALATION RT-QID PRN 12/03/19 06/25/20 History Inhaler] Denosumab [Prolia] 60 mg SQ Q180D 04/06/20 06/25/20 History Diclofenac Sodium [Voltaren Gel] 2 gram TOPICAL BID PRN 04/06/20 06/25/20 History Verapamil HCl [Verapamil ER] 240 mg PO DAILY 04/06/20 06/25/20 History Aspirin EC [Ecotrin Low Dose] 81 mg PO DAILY 06/25/20 06/25/20 History Hydrochlorothiazide 12.5 mg PO DAILY 06/25/20 06/25/20 History [hydroCHLOROthiazide] Omeprazole 20 mg PO DAILY 06/25/20 06/25/20 History Allergies Allergy/AdvReac Type Severity Reaction Status Date / Time No Known Allergies Allergy Verified 06/25/20 11:31 Surgical - Exam Vital Signs Temp Pulse Resp BP Pulse Ox 97.7 F 65 18 140/70 95 06/25/20 10:37 06/25/20 10:37 06/25/20 10:37 06/25/20 10:37 06/25/20 10:37 - General well developed, no distress - Eyes PERRL - ENT normal pinna - Neck no masses - Respiratory normal expansion - Cardiovascular Rhythm: regular - Abdomen Abdomen: soft, non tender Results - Labs 06/26/20 05:43 06/25/20 11:00 Abnormal Lab Results - Last 24 Hours (Table) 06/26/20 Range/Units 05:43 RBC 3.28 L (3.80-5.40) m/uL Hgb 11.1 L (11.4-16.0) gm/dL MCV 103.5 H (80.0-100.0) fL Assessment and Plan Assessment: Minimal rectal bleeding. Patient will be reevaluated by Dr. Brewster in the a.m.
[2020-06-26] MEDS: LATANOPROST 0.005% OPHTH DROPS 2.5 ML BTL BOTH EYES SCH (21:59)
[2020-06-26] MEDS: metroNIDAZOLE 500 MG TAB PO SCH (22:08)
--- NOTE | 2020-06-26 22:18 | P.PN ---
Progress Note - Text Progress Note Date: 06/26/20 Chief Complaint: Fresh blood per rectum History of presenting complaint: This is a very pleasant 74-year-old patient of Dr. Faizan sepulveda. Chronic stable medical conditions include GERD, hyperlipidemia, hypertension, osteoarthritis, paroxysmal atrial fibrillation, varicose veins, diverticulosis. Patient is very hard of hearing and does lipreading. In February 2020 [Dr. Brewster] colonoscopy internal hemorrhoids grade 3 and external prolapsed hemorrhoids. EGD-grade a erosive esophagitis and some chronic gastritis. Patient recently had a watchman procedure done by Dr. Concepcion at [facility]. Patient currently on aspirin and Pradaxa. 2 days patient started out with some nausea vomiting abdominal discomfort. It had fresh bleeding per rectum today. Brought into the ER. No fever no chills. Daughter is the bedside. Patient does feel tired and rundown. Today-laying in bed. No further bleeding reported. On clear liquids. Review of systems: Was done for constitutional, cardiovascular, GI, pulmonary. relevant finding as above Active Medications Acetaminophen (Acetaminophen Tab 325 Mg Tab) 650 mg PO Q6HR PRN PRN Reason: Mild Pain or Fever > 100.5 Hydrocodone Bitart/Acetaminophen (Hydrocodone/Ap[place] 5-325mg 1 Each Tab) 1 each PO Q4HR PRN PRN Reason: Moderate Pain Last Admin: 06/26/20 14:57 Dose: 1 each Documented by: Albuterol Sulfate (Albuterol Nebulized 2.5 Mg/3 Ml) 2.5 mg INHALATION RT-TID [facility] Last Admin: 06/26/20 19:55 Dose: 2.5 mg Documented by: Albuterol Sulfate (Albuterol Nebulized 2.5 Mg/3 Ml) 2.5 mg INHALATION RT-QID PRN PRN Reason: Shortness Of Breath Aspirin (Aspirin 81 Mg) 81 mg PO DAILY [facility] Last Admin: 06/26/20 10:58 Dose: 81 mg Documented by: Baclofen (Baclofen 10 Mg Tab) 10 mg PO TID PRN PRN Reason: Muscle Spasm Last Admin: 06/25/20 16:17 Dose: 10 mg Documented by: Budesonide/Formoterol Fumarate (Symbicort 160-4.5 Mcg Inhaler) 2 puff INHALATION RT-BID [facility] Last Admin: 06/26/20 19:55 Dose: 2 puff Documented by: Diclofenac Sodium (Diclofenac Sodium Gel 100 Gm Tube) 2 gm TOPICAL BID PRN PRN Reason: Pain Dicyclomine HCl (Dicyclomine 10 Mg Cap) 10 mg PO QID [facility] Last Admin: 06/26/20 21:59 Dose: 10 mg Documented by: Sodium Chloride (Saline 0.9%) 1,000 mls @ 75 mls/hr IV .[id number] [facility] Last Admin: 06/26/20 15:50 Dose: 75 mls/hr Documented by: Ceftriaxone Sodium 1 gm/ (Sodium Chloride) 50 mls @ 100 mls/hr IVPB Q24HR [facility] Last Admin: 06/26/20 14:50 Dose: 100 mls/hr Documented by: Latanoprost (Latanoprost 0.005% Ophth Drops 2.5 Ml Btl) 2 drops BOTH EYES HS [facility] Last Admin: 06/26/20 21:59 Dose: 2 drops Documented by: Lisinopril (Lisinopril 10 Mg Tab) 10 mg PO DAILY [facility] Last Admin: 06/26/20 08:26 Dose: 10 mg Documented by: Lorazepam (Lorazepam 2 Mg/Ml Inj) 0.5 mg IV Q6HR PRN PRN Reason: Anxiety Metronidazole (Metronidazole 500 Mg Tab) 500 mg PO BID [facility] Last Admin: 06/26/20 22:08 Dose: 500 mg Documented by: Nadolol (Nadolol 20 Mg Tab) 40 mg PO DAILY [facility] Last Admin: 06/26/20 08:26 Dose: 40 mg Documented by: Naloxone HCl (Naloxone 0.4 Mg/Ml 1 Ml Vial) 0.2 mg IV Q2M PRN PRN Reason: Opioid Reversal Ondansetron HCl (Ondansetron 4 Mg/2 Ml Vial) 4 mg IVP Q8HR PRN PRN Reason: Nausea And Vomiting Pantoprazole Sodium (Pantoprazole 40 Mg Tablet) 40 mg PO AC-BID [facility] Last Admin: 06/26/20 18:32 Dose: 40 mg Documented by: Pravastatin Sodium (Pravastatin Sodium 40 Mg Tab) 40 mg PO DAILY [facility] Last Admin: 06/26/20 08:26 Dose: 40 mg Documented by: Tramadol HCl (Tramadol 50 Mg Tab) 50 mg PO Q6H PRN PRN Reason: Moderate Pain Verapamil HCl (Verapamil Sr 240 Mg Tablet.Er) 240 mg PO DAILY [facility] Last Admin: 06/26/20 08:26 Dose: 240 mg Documented by: Past medical history to include: Asthma, GERD, hyperlipidemia, hypertension, osteoarthritis, paroxysmal atrial fibrillation, varicose veins, stomach ulcer, diverticulitis. Esophagitis, gastritis, internal/external hemorrhoids, watchman procedure Social history: Does not smoke or drink Cold. Lives alone. Physical examination: VITAL SIGNS: 97.8, 100, 18, 95.58, 100% on 2 L GENERAL: BMI 24, reclining in bed, tired EYES: Pupils equal. Conjunctiva pale. HEENT: External appearance of nose and ears normal, oral cavity grossly normal. Very hard of hearing NECK: JVD not raised; masses not palpable. HEART: First and second heart sounds are normal; no edema. LUNGS: Respiratory rate normal, decreased breaths sounds. ABDOMEN: Soft, nontender, liver spleen not palpable, no masses palpable. PSYCH: Alert and oriented x3; mood and affect normal. MUSCULAR skeletal:: Evidence of OA especially in the hands INVESTIGATIONS, reviewed in the clinical context: June 26: White count 10.2 hemoglobin 11.1 platelets 182 WBC 15 hemoglobin 12 platelets 228 INR 1.8 potassium 3.6 bun 42 creatinine 1.28 Previous labs: 05/19/2020: Bun 19 creatinine 0.9 Assessment and plan: -This is a patient for 2 days has had some nausea and some vomiting not feeling well abdominal discomfort now presenting with fresh bleeding per rectum. Note that she is is on aspirin and Pradaxa, following her watchman procedure. Over 2 months ago patient did have EGD colonoscopy that is show esophagitis and gastritis. Per cardiology patient to resume aspirin and hold off Pradaxa. - moderate persistent asthma, continue with Symbicort -GERD, on PPI -Hyperlipidemia, on Pravachol -Essential hypertension, on verapamil ER, Univasc, nadolol -Primary osteoarthritis, use Tylenol when necessary -Paroxysmal atrial fibrillation currently in sinus rhythm -Chronic Esophagitis and gastritis., On PPI -Acute blood loss anemia from GI bleed -Very hard of hearing -Left hip but contusion/hematoma secondary to fall. No fracture. Seen by orthopedics. Patient's aspirin has been resumed by currently. Pradaxa has been held. Await input from Dr. Brewster. No further intervention as per orthopedics. No fracture.
[2020-06-27] MEDS: HYDROcodone/APAP 5-325MG 1 EACH TAB PO PRN ×3 (02:25→21:06)
[2020-06-27] MEDS: BACLOFEN 10 MG TAB PO PRN ×3 (03:24→21:06)
[2020-06-27] MEDS: SODIUM CHLORIDE 0.9% 1,000 ML IV SCH ×2 (05:32→16:35)
[2020-06-27 06:32] LABS: African American GFR (CKD) 81 (>60 ml/min/1.73 sqM); Anion Gap 2 mmol/L; Blood Urea Nitrogen 32 mg/dL (7-17); Calcium 9.3 mg/dL (8.4-10.2); Carbon Dioxide 33 mmol/L (22-30); Chloride 101 mmol/L (98-107); Glucose 103 mg/dL (74-99); Non-African American GFR(CKD) 70 (>60 ml/min/1.73 sqM); Potassium 3.2 mmol/L (3.5-5.1); Sodium 136 mmol/L (137-145)
[2020-06-27] MEDS: metroNIDAZOLE 500 MG TAB PO SCH ×2 (08:50→21:06)
[2020-06-27] MEDS: ASPIRIN 81 MG PO SCH (08:50)
[2020-06-27] MEDS: lisinopriL 10 MG TAB PO SCH (08:50)
[2020-06-27] MEDS: DICYCLOMINE 10 MG CAP PO SCH ×4 (08:50→21:06)
[2020-06-27] MEDS: PANTOPRAZOLE 40 MG TABLET PO SCH ×2 (08:50→16:35)
[2020-06-27] MEDS: PRAVASTATIN SODIUM 40 MG TAB PO SCH (08:51)
[2020-06-27] MEDS: VERAPAMIL SR 240 MG TABLET.ER PO SCH (08:51)
[2020-06-27 08:56] LABS: Basophils # (A) 0.02 X 10*3/uL (0.00-0.10); Basophils % (A) 0.3 %; Eosinophils % (A) 1.3 %; HGB 9.4 g/dL (12.0-15.0); Lymphocytes # (A) 1.42 X 10*3/uL (0.90-5.00); Lymphocytes % (A) 18.3 %; MCH 32.6 pg (27.0-32.0); MCHC 31.3 g/dL (32.0-37.0); MCV 104.2 fL (80.0-97.0); Mean Platelet Volume 11.5 fL (9.5-12.2); Monocytes # (A) 0.87 X 10*3/uL (0.20-1.00); Monocytes % (A) 11.2 %; Neutrophils # (A) 5.32 X 10*3/uL (1.80-7.70); Neutrophils % (A) 68.4 %; Platelet Count 186 X 10*3/uL (140-440); RBC 2.88 X 10*6/uL (4.10-5.20); RDW 13.9 % (11.5-14.5); WBC 7.77 X 10*3/uL (4.50-10.00)
[2020-06-27] MEDS: ALBUTEROL NEBULIZED 2.5 MG/3 ML INHALATION SCH ×3 (09:11→20:21)
[2020-06-27] MEDS: SYMBICORT 160-4.5 MCG INHALER INHALATION SCH ×2 (09:11→20:21)
--- NOTE | 2020-06-27 10:44 | P.PN ---
Subjective Progress Note Date: 06/27/20 Principal diagnosis: Rectal bleeding Patient seen and examined sitting up in bed. She denies any current active rectal bleeding. States her diarrhea has stopped therefore she hasn't had any further rectal bleeding because only comes with the diarrhea. She denies any nausea or vomiting since being in the hospital. No acute changes through the night. Objective - Vital Signs Vital signs: Vital Signs Temp 98.0 F 06/27/20 07:00 Pulse 118 H 06/27/20 07:00 Resp 14 06/27/20 07:00 BP 150/83 06/27/20 07:00 Pulse Ox 96 06/27/20 07:00 Intake & Output 06/26/20 06/27/20 06/27/20 18:59 06:59 18:59 Intake Total 400 Balance 400 Intake: Oral 400 Other: Voiding Method Bedside Commode Bedside Commode Diaper Diaper # Voids 1 - Exam General appearance: The patient is alert, oriented, appears in no acute distress. HET: Head is normocephalic and atraumatic. Conjunctiva pink. Sclera anicteric. Neck: Supple without lymphadenopathy. Abdomen: Soft, nontender, nondistended with bowel sounds. No guarding or rigidity. Extremities: Normal skin color and turgor. No pedal edema Skin: No rashes, no jaundice Neurological: No focal deficits. Alert and oriented 3. - Labs CBC & Chem 7: 06/27/20 05:01 06/27/20 05:01 Labs: Abnormal Lab Results - Last 24 Hours (Table) 06/27/20 Range/Units 05:01 Sodium 136 L (137-145) mmol/L Potassium 3.2 L (3.5-5.1) mmol/L Carbon Dioxide 33 H (22-30) mmol/L BUN 32 H (7-17) mg/dL Glucose 103 H (74-99) mg/dL Assessment and Plan (1) Colitis Narrative/Plan: 75-year-old female who presented to the hospital for constellation of complaints including weakness and fatigue, nausea, vomiting, diarrhea and abdominal pain. Patient had been feeling weak and unable to take her medications due to nausea and vomiting. She reported diarrhea with associated bright red blood per rectum which she states is happening in the past secondary to hemorrhoids. She did have EGD and colonoscopy performed in 2019 with findings of esophagitis, gastritis and as previously had polypectomy and AV malformation noted as well as internal and external hemorrhoids. She states that she often will see blood per rectum in the setting of diarrhea. Overall the patient is feeling improved today. Computed tomography scan did show ecchymoses and questionable colitis, suspicion is for possible infectious colitis, with inflammatory process unlikely given recent colonoscopy and ischemic colitis also possible although less likely. Current Visit: Yes Status: Acute Code(s): K52.9 - NONINFECTIVE GASTROENTERITIS AND COLITIS, UNSPECIFIED SNOMED Code(s): 344381552 (2) Abdominal pain Current Visit: Yes Status: Acute Code(s): R10.9 - UNSPECIFIED ABDOMINAL PAIN SNOMED Code(s): 88403770 (3) GI bleeding Current Visit: Yes Status: Acute Code(s): K92.2 - GASTROINTESTINAL HEMORRHAGE, UNSPECIFIED SNOMED Code(s): 61441380 Plan: Supportive care Heart healthy diet Continue to monitor CBC, BMP, LFTs We'll initiate a short course of antibiotic therapy given possibility of colitis noted on computed tomography scan with ceftriaxone and Flagyl Surgical service has been consulted to see the patient and having established relationship we'll defer any endoscopic evaluation to their service Continue other medical management per primary team Continue to hold anticoagulation until no further bleeding Thank you for allowing us to be to participate in the care of the patient Dr. Hammond I agree with the dictator's note, documented as a scribe by Pebbles Muñiz.
--- NOTE | 2020-06-27 14:08 | P.PN ---
Subjective This is a pleasant 75-year-old female past medical history significant for atrial fibrillation s/p Watchmen procedure 05/27/2020, COPD, hypertension and dyslipidemia. She follows in the office with Dr. Gonzalez. She is seen and examined sitting up in bed in no acute distress. She denies any further episodes of blood in the stool. She denies chest pain, dizziness or palpitations. Blood pressure 150/83 heart rate 94 afebrile maintaining oxygen saturation on room air. Laboratory data reviewed, WBC 7, hemoglobin 9.4, platelets 186, sodium 136, potassium 3.2, creatinine 0.82. GENERAL: Well-appearing, well-nourished and in no acute distress. NECK: Supple without JVD or thyromegaly. LUNGS: Breath sounds clear to auscultation bilaterally. Respiration equal and unlabored. No wheezes, rales or rhonchi. HEART: Irregular rate and rhythm without murmurs, rubs or gallops. S1 and S2 heard. EXTREMITIES: Normal range of motion, no edema. No clubbing or cyanosis. Peripheral pulses intact. ASSESSMENT Possible GI bleed with history of previous GI bleed Paroxysmal atrial fibrillation status post watchmen procedure Hypertension Dyslipidemia COPD PLAN Given her Watchmen procedure was less than 3 months ago the importance of ongoing anti-coagulation is imperative. Recommend resuming pradaxa and discontinuing aspirin. We will discuss this with Dr. Dan. Continue to monitor hemoglobin as well as for signs of ongoing bleeding. Nurse Practitioner note has been reviewed, I agree with a documented findings and plan of care. Patient was seen and examined. Objective - Vital Signs Vital signs: Vital Signs Temp 98.0 F 06/27/20 07:00 Pulse 94 06/27/20 13:01 Resp 18 06/27/20 13:01 BP 150/83 06/27/20 07:00 Pulse Ox 94 L 06/27/20 09:11 Intake & Output 06/26/20 06/27/20 06/27/20 18:59 06:59 18:59 Intake Total 400 0 Balance 400 0 Intake: Oral 400 0 Other: Voiding Method Bedside Commode Bedside Commode Diaper Diaper # Voids 1 - Labs CBC & Chem 7: 06/27/20 05:01 06/27/20 05:01 Labs: Abnormal Lab Results - Last 24 Hours (Table) 06/27/20 06/27/20 Range/Units 05:01 05:01 RBC 2.88 L (4.10-5.20) X 10*6/uL Hgb 9.4 L (12.0-15.0) g/dL Hct 30.0 L (37.2-46.3) % MCV 104.2 H (80.0-97.0) fL MCH 32.6 H (27.0-32.0) pg MCHC 31.3 L (32.0-37.0) g/dL Sodium 136 L (137-145) mmol/L Potassium 3.2 L (3.5-5.1) mmol/L Carbon Dioxide 33 H (22-30) mmol/L BUN 32 H (7-17) mg/dL Glucose 103 H (74-99) mg/dL
--- NOTE | 2020-06-27 16:12 | P.PN ---
Subjective Progress Note Date: 06/27/20 Principal diagnosis: Left hip/buttock contusion/hematoma Patient was evaluated today at bedside, her daughter was also present. She is moving a lot better today. The discomfort in the left hip region is much improved. Objective - Vital Signs Vital signs: Vital Signs Temp 98.1 F 06/27/20 15:00 Pulse 63 06/27/20 15:00 Resp 14 06/27/20 15:00 BP 135/63 06/27/20 15:00 Pulse Ox 95 06/27/20 15:00 Intake & Output 06/26/20 06/27/20 06/27/20 18:59 06:59 18:59 Intake Total 400 0 Balance 400 0 Intake: Oral 400 0 Other: Voiding Method Bedside Commode Bedside Commode Diaper Diaper # Voids 1 - Exam Left lower extremity: No obvious open lesions or sores are present throughout extremity Ecchymosis is present involving the upper aspect of the left lower extremity wrapping around the buttock region, there is soft tissue swelling present There is no pain in the groin with logroll maneuver, she is able to straight leg raise Tenderness with palpation in the area of bruising, there is no pain over the greater trochanter. There is no tenderness with palpation of the knee, no effusion is present. Flexion and extension of the knee are full, no significant strength deficits appreciated She is nontender with palpation of the lower leg, foot or ankle Plantar flexion, dorsiflexion, EHL, FHL are intact Calf is soft, tenderness with palpation Skin is warm to touch General orthopedic exam: Patient was visualized standing from her wheelchair, she was able to get up with no assistance and move with no significant difficulties. There were no obvious pain symptoms reproduced Range of motion of all major muscle groups intact in the right lower extremity, there is no point tenderness appreciated of the right lower extremity. Logroll maneuver the hip reproduces no pain, she is able to straight leg raise. Sen sation to light touch is intact throughout the extremity, skin is warm to touch. Calf is soft, no tenderness with palpation - Labs CBC & Chem 7: 06/27/20 05:01 06/27/20 05:01 Labs: Abnormal Lab Results - Last 24 Hours (Table) 06/27/20 06/27/20 Range/Units 05:01 05:01 RBC 2.88 L (4.10-5.20) X 10*6/uL Hgb 9.4 L (12.0-15.0) g/dL Hct 30.0 L (37.2-46.3) % MCV 104.2 H (80.0-97.0) fL MCH 32.6 H (27.0-32.0) pg MCHC 31.3 L (32.0-37.0) g/dL Sodium 136 L (137-145) mmol/L Potassium 3.2 L (3.5-5.1) mmol/L Carbon Dioxide 33 H (22-30) mmol/L BUN 32 H (7-17) mg/dL Glucose 103 H (74-99) mg/dL Assessment and Plan Assessment: Left hip/buttock contusion Left hip/buttock hematoma Status post fall from standing Chronic low back pain Other medical comorbidities Plan: Recommend daily skin checks of the affected area, icing of the area Recommend weight-bear as tolerated with walker at all times GI and DVT prophylaxis per primary medical service PT/OT evaluation Other medical affairs manager and recommendations We'll sign off patient at this time, please contact her group with any further questions regarding this patient. Time with Patient: Less than 30
--- NOTE | 2020-06-27 16:26 | P.PN ---
<Vijaya Cat - Last Filed: 06/27/20 16:18> Subjective Progress Note Date: 06/27/20 CHIEF COMPLAINT: Rectal bleeding HISTORY OF PRESENT ILLNESS: Surgical service is following regards to patient's rectal bleeding. Patient reports that she did have a dime size small bowel movement this morning that had some a small streak of blood. Apparently she was also having some diarrhea at home this has resolved. She denies any nausea or vomiting. She reports that her abdominal pain has improved. She does have a large left gluteal hematoma. She is followed by cardiology she has had the watchman procedure and had been on Pradaxa. Pradaxa is currently on hold. Patient is afebrile. WBC 7.77 hemoglobin has dropped from 11.1-9.4 Computed tomography scan of the abdomen and pelvis from 06/26/2020 report states correlate for colitis. Noncontrast exam. Possible pericardial thickening or pericardial effusion. PHYSICAL EXAM: VITAL SIGNS: Reviewed GENERAL: Well-developed in no acute distress. HEENT: No sclera icterus. Extraocular movements grossly intact. Moist buccal mucosa. Head is atraumatic, normocephalic. Hears conversational speech. No nasal drainage. NECK: Supple without lymphadenopathy. CHEST: Non-labored respirations and equal bilateral excursions. CARDIOVASCULAR: Palpable 2+ radial pulses. ABDOMEN: Soft. Nondistended. Nontender. Patient has a large left gluteal hematoma MUSCULOSKELETAL: No clubbing or cyanosis. NEUROLOGIC: No focal or lateralizing signs. Cranial nerves II through XII grossly intact. PSYCH: Appropriate affect. Alert and oriented to person, place and time. SKIN: Well perfused. Good skin turgor. ASSESSMENT: 1. Rectal bleeding 2. Colitis 3. Abdominal pain 4. History of paroxysmal atrial fibrillation status post watchman procedure 5. Left hip/buttock hematoma seen by orthopedics PLAN: -Continue supportive care -Continue to monitor hemoglobin -Hold Pradaxa for today -Further recommendations forthcoming per surgeon Physician Health Unit Clerk note has been reviewed by physician. Signing provider agrees with the documented findings, assessment, and plan of care. Objective - Vital Signs Vital signs: Vital Signs Temp 98.1 F 06/27/20 15:00 Pulse 63 06/27/20 15:00 Resp 14 06/27/20 15:00 BP 135/63 06/27/20 15:00 Pulse Ox 95 06/27/20 15:00 Intake & Output 06/26/20 06/27/20 06/27/20 18:59 06:59 18:59 Intake Total 400 0 Balance 400 0 Intake: Oral 400 0 Other: Voiding Method Bedside Commode Bedside Commode Diaper Diaper # Voids 1 - Labs CBC & Chem 7: 06/27/20 05:01 06/27/20 05:01 Labs: Abnormal Lab Results - Last 24 Hours (Table) 06/27/20 06/27/20 Range/Units 05:01 05:01 RBC 2.88 L (4.10-5.20) X 10*6/uL Hgb 9.4 L (12.0-15.0) g/dL Hct 30.0 L (37.2-46.3) % MCV 104.2 H (80.0-97.0) fL MCH 32.6 H (27.0-32.0) pg MCHC 31.3 L (32.0-37.0) g/dL Sodium 136 L (137-145) mmol/L Potassium 3.2 L (3.5-5.1) mmol/L Carbon Dioxide 33 H (22-30) mmol/L BUN 32 H (7-17) mg/dL Glucose 103 H (74-99) mg/dL <Anyi Dan N - Last Filed: 06/27/20 20:57> Subjective She is clinically stable. She reports mucus type stools. Recommend fiber intake 25 grams daily. May start blood thinner tomorrow. Objective - Vital Signs Vital signs: Vital Signs Temp 98.1 F 06/27/20 15:00 Pulse 92 06/27/20 20:34 Resp 14 06/27/20 15:00 BP 135/63 06/27/20 15:00 Pulse Ox 95 06/27/20 15:00 Intake & Output 06/27/20 06/27/20 06/28/20 06:59 18:59 06:59 Intake Total 400 Balance 400 Intake: Oral 400 Other: Voiding Method Bedside Commode Diaper # Voids 1 - Labs CBC & Chem 7: 06/27/20 05:01 06/27/20 05:01 Labs: Abnormal Lab Results - Last 24 Hours (Table) 03/08/21 03/08/21 03/08/21 Range/Units 05:01 05:01 17:26 RBC 2.88 L (4.10-5.20) X 10*6/uL Hgb 9.4 L (12.0-15.0) g/dL Hct 30.0 L (37.2-46.3) % MCV 104.2 H (80.0-97.0) fL MCH 32.6 H (27.0-32.0) pg MCHC 31.3 L (32.0-37.0) g/dL Sodium 136 L (137-145) mmol/L Potassium 3.2 L (3.5-5.1) mmol/L Carbon Dioxide 33 H (22-30) mmol/L BUN 32 H (7-17) mg/dL Glucose 103 H (74-99) mg/dL Urine Protein Trace H (Negative) Urine Blood Trace H (Negative) Ur Leukocyte Esterase Small H (Negative) Urine Mucus Rare H (None) /hpf
[2020-06-27] MEDS ORDERED: POTASSIUM CHLORIDE ER 20 MEQ TAB.ER PO STA (16:48)
[2020-06-27 17:37] LABS: Appearance,Urine Clear (Clear); Bilirubin,Urine Negative (Negative); Blood,Urine Trace (Negative); Color,Urine Yellow; Glucose,Urine (UA) Negative (Negative); Hyaline Casts,Urine 1 /lpf (0-2); Ketones,Urine Negative (Negative); Leukocyte Esterase,Urine Small (Negative); Mucus,Urine Rare /hpf; Nitrite,Urine Negative (Negative); PH, Urine 5.5 (5.0-8.0); Protein,Urine Trace (Negative); RBC,Urine 3 /hpf (0-5); Specific Gravity,Urine 1.023 (1.001-1.035); Squamous Epithelial Cell,Urine 1 /hpf (0-4); Urobilinogen,Urine <2.0 mg/dL (<2.0); WBC,Urine 2 /hpf (0-5)
--- NOTE | 2020-06-27 19:49 | CONS ---
CONSULTATION REASON FOR CONSULT: Acute kidney injury. HISTORY OF PRESENT ILLNESS: The patient is a 75-year-old female who was admitted to the hospital with complaints of increased weakness and bleeding per rectum. The patient has a history of significant hemorrhoids. She did have an EGD which showed erosive esophagitis and gastritis. Her serum creatinine was 1.28 on initial admission, currently down to 0.8 mg/dL. The patient denies any previous history of kidney disease. No active bleeding noted currently. Blood pressure has not been significantly low, although it was low yesterday with systolic around 91. The patient is not maintained on any nephrotoxic medications. She is, however, on lisinopril 10 mg daily. Anticoagulation is currently on hold. PAST MEDICAL HISTORY: Significant for hypertension, atrial fibrillation, osteoarthritis, gastroesophageal reflux disease, diverticulosis, previous history of GI bleed, hearing loss, glaucoma, osteoarthritis. PAST SURGICAL HISTORY: Adenoidectomy, appendectomy, cardiac catheterization, hysterectomy, tubal ligation, tonsillectomy, colonoscopy with polypectomy, ablation of AV malformation, cataract surgery, Watchman procedure recently. SOCIAL HISTORY: Negative for smoking, drug abuse or alcohol abuse. MEDICATIONS: Medications prior to admission included baclofen, Pradaxa, Univasc, [place], Pravachol, Prolia, verapamil, aspirin, hydrochlorothiazide, omeprazole. ALLERGIES: None. EXAMINATION: Patient is comfortable, awake, not in any acute distress. Alert and oriented x3. Blood pressure is 135/63, heart rate 63 per minute, she is afebrile. Examination of the heart S1, S2. Examination of the lungs, bilateral breath sounds are heard. Abdomen is soft, nontender. Examination of lower extremities shows no evidence of edema. SALES PROMOTION COORDINATOR exam grossly intact. LAB: Show sodium of 136, potassium 3.2, BUN 32, creatinine 0.8. Occult blood in the stool positive. Hemoglobin 9.4 g/dL. ASSESSMENT: 1. Acute kidney injury, mostly prerenal, currently improved. Patient is maintained on IV fluids. 2. Hypertension with blood pressure on the lower side. I will decrease the dose of Zestril as systolic blood pressure was 91 yesterday. 3. Gastrointestinal bleed possibly related to hemorrhoids versus actual gastrointestinal bleed as previous as patient has had erosive esophagitis and colonic AV malformations on previous scope. 4. Hypokalemia associated with decreased oral intake. This will be replaced. PLAN: Decrease lisinopril to 5 mg daily. Replace potassium. Repeat labs in a.m. Thank you for this consultation. We will continue to follow the patient with you during her hospitalization. MMMORAL / BILLN: [id number] /
[2020-06-27] MEDS ORDERED: DABIGATRAN 150 MG CAP PO SCH (21:00)
[2020-06-27] MEDS: LATANOPROST 0.005% OPHTH DROPS 2.5 ML BTL BOTH EYES SCH (21:07)
--- NOTE | 2020-06-27 22:54 | P.PN ---
Progress Note - Text Progress Note Date: 06/27/20 Chief Complaint: Fresh blood per rectum History of presenting complaint: This is a very pleasant 74-year-old patient of Dr. Faizan sepulveda. Chronic stable medical conditions include GERD, hyperlipidemia, hypertension, osteoarthritis, paroxysmal atrial fibrillation, varicose veins, diverticulosis. Patient is very hard of hearing and does lipreading. In February 2020 [Dr. Brewster] colonoscopy internal hemorrhoids grade 3 and external prolapsed hemorrhoids. EGD-grade a erosive esophagitis and some chronic gastritis. Patient recently had a watchman procedure done by Dr. Concepcion at [facility]. Patient currently on aspirin and Pradaxa. 2 days patient started out with some nausea vomiting abdominal discomfort. It had fresh bleeding per rectum today. Brought into the ER. No fever no chills. Daughter is the bedside. Patient does feel tired and rundown. Today-laying in bed. May be some blood on the toilet paper. No abdominal pain. Review of systems: Was done for constitutional, cardiovascular, GI, pulmonary. relevant finding as above Active Medications Acetaminophen (Acetaminophen Tab 325 Mg Tab) 650 mg PO Q6HR PRN PRN Reason: Mild Pain or Fever > 100.5 Hydrocodone Bitart/Acetaminophen (Hydrocodone/Apap 5-325mg 1 Each Tab) 1 each PO Q4HR PRN PRN Reason: Moderate Pain Last Admin: 06/27/20 21:06 Dose: 1 each Documented by: Albuterol Sulfate (Albuterol Nebulized 2.5 Mg/3 Ml) 2.5 mg INHALATION RT-TID [facility] Last Admin: 06/27/20 20:21 Dose: 2.5 mg Documented by: Albuterol Sulfate (Albuterol Nebulized 2.5 Mg/3 Ml) 2.5 mg INHALATION RT-QID PRN PRN Reason: Shortness Of Breath Baclofen (Baclofen 10 Mg Tab) 10 mg PO TID PRN PRN Reason: Muscle Spasm Last Admin: 06/27/20 21:06 Dose: 10 mg Documented by: Budesonide/Formoterol Fumarate (Symbicort 160-4.5 Mcg Inhaler) 2 puff INHALATION RT-BID [facility] Last Admin: 06/27/20 20:21 Dose: 2 puff Documented by: Diclofenac Sodium (Diclofenac Sodium Gel 100 Gm Tube) 2 gm TOPICAL BID PRN PRN Reason: Pain Dicyclomine HCl (Dicyclomine 10 Mg Cap) 10 mg PO QID [facility] Last Admin: 06/27/20 21:06 Dose: 10 mg Documented by: Sodium Chloride (Saline 0.9%) 1,000 mls @ 75 mls/hr IV .[id number] [facility] Last Admin: 06/27/20 16:35 Dose: 75 mls/hr Documented by: Ceftriaxone Sodium 1 gm/ (Sodium Chloride) 50 mls @ 100 mls/hr IVPB Q24HR [facility] Last Admin: 06/27/20 08:50 Dose: 100 mls/hr Documented by: Latanoprost (Latanoprost 0.005% Ophth Drops 2.5 Ml Btl) 2 drops BOTH EYES HS [facility] Last Admin: 06/27/20 21:07 Dose: 2 drops Documented by: Lisinopril (Lisinopril 5 Mg Tab) 5 mg PO DAILY [facility] Lorazepam (Lorazepam 2 Mg/Ml Inj) 0.5 mg IV Q6HR PRN PRN Reason: Anxiety Metronidazole (Metronidazole 500 Mg Tab) 500 mg PO BID [facility] Last Admin: 06/27/20 21:06 Dose: 500 mg Documented by: Nadolol (Nadolol 20 Mg Tab) 40 mg PO DAILY [facility] Last Admin: 06/27/20 08:51 Dose: 40 mg Documented by: Naloxone HCl (Naloxone 0.4 Mg/Ml 1 Ml Vial) 0.2 mg IV Q2M PRN PRN Reason: Opioid Reversal Ondansetron HCl (Ondansetron 4 Mg/2 Ml Vial) 4 mg IVP Q8HR PRN PRN Reason: Nausea And Vomiting Pantoprazole Sodium (Pantoprazole 40 Mg Tablet) 40 mg PO AC-BID [facility] Last Admin: 06/27/20 16:35 Dose: 40 mg Documented by: Pravastatin Sodium (Pravastatin Sodium 40 Mg Tab) 40 mg PO DAILY [facility] Last Admin: 06/27/20 08:51 Dose: 40 mg Documented by: Tramadol HCl (Tramadol 50 Mg Tab) 50 mg PO Q6H PRN PRN Reason: Moderate Pain Verapamil HCl (Verapamil Sr 240 Mg Tablet.Er) 240 mg PO DAILY [facility] Last Admin: 06/27/20 08:51 Dose: 240 mg Documented by: Past medical history to include: Asthma, GERD, hyperlipidemia, hypertension, osteoarthritis, paroxysmal atrial fi brillation, varicose veins, stomach ulcer, diverticulitis. Esophagitis, gastritis, internal/external hemorrhoids, watchman procedure Social history: Does not smoke or drink Cold. Lives alone. Physical examination: VITAL SIGNS: 98.1, 63, 14, 135/63, 95% room air GENERAL: BMI 24, reclining in bed, tired EYES: Pupils equal. Conjunctiva pale. HEENT: External appearance of nose and ears normal, oral cavity grossly normal. Very hard of hearing NECK: JVD not raised; masses not palpable. HEART: First and second heart sounds are normal; no edema. LUNGS: Respiratory rate normal, decreased breaths sounds. ABDOMEN: Soft, nontender, liver spleen not palpable, no masses palpable. PSYCH: Alert and oriented x3; mood and affect normal. MUSCULAR skeletal:: Evidence of OA especially in the hands INVESTIGATIONS, reviewed in the clinical context: June 27: Hemoglobin 8.4 potassium 3.2 creatinine 0.82 June 26: White count 10.2 hemoglobin 11.1 platelets 182 WBC 15 hemoglobin 12 platelets 228 INR 1.8 potassium 3.6 bun 42 creatinine 1.28 Previous labs: 05/19/2020: Bun 19 creatinine 0.9 Assessment and plan: -This is a patient for 2 days has had some nausea and some vomiting not feeling well abdominal discomfort now presenting with fresh bleeding per rectum. Note that she is is on aspirin and Pradaxa, following her watchman procedure. Over 2 months ago patient did have EGD colonoscopy that is show esophagitis and gastritis. Per cardiology patient to resume aspirin and hold off Pradaxa. - moderate persistent asthma, continue with Symbicort -GERD, on PPI -Hyperlipidemia, on Pravachol -Essential hypertension, on verapamil ER, Univasc, nadolol -Primary osteoarthritis, use Tylenol when necessary -Paroxysmal atrial fibrillation currently in sinus rhythm -Chronic Esophagitis and gastritis., On PPI -Acute blood loss anemia from GI bleed -Very hard of hearing -Acute kidney injury. Better. Likely prerenal -Left hip - contusion/hematoma secondary to fall. No fracture. Seen by orthopedics. Conservative approach. Awaiting input from general surgery. Otherwise patient doing well. Oral feeling better. Diet was advanced by GI. Hopefully home tomorrow.
[2020-06-28 07:32] VITALS: BP 168/84; TEMP 97.7
[2020-06-28] MEDS: BACLOFEN 10 MG TAB PO PRN (08:31)
[2020-06-28] MEDS: VERAPAMIL SR 240 MG TABLET.ER PO SCH (08:31)
[2020-06-28] MEDS: PANTOPRAZOLE 40 MG TABLET PO SCH (08:31)
[2020-06-28] MEDS: DICYCLOMINE 10 MG CAP PO SCH ×2 (08:31→12:17)
[2020-06-28] MEDS: PRAVASTATIN SODIUM 40 MG TAB PO SCH (08:31)
[2020-06-28] MEDS: metroNIDAZOLE 500 MG TAB PO SCH (08:31)
[2020-06-28] MEDS: HYDROcodone/APAP 5-325MG 1 EACH TAB PO PRN (08:31)
[2020-06-28] MEDS: SODIUM CHLORIDE 0.9% 1,000 ML IV SCH (08:32)
[2020-06-28] MEDS ORDERED: lisinopriL 5 MG TAB PO SCH (09:00)
[2020-06-28 09:01] LABS: HCT 34.3 % (34.0-46.0); HGB 11.1 gm/dL (11.4-16.0); MCH 33.5 pg (25.0-35.0); MCHC 32.3 g/dL (31.0-37.0); MCV 103.9 fL (80.0-100.0); Macrocytosis Slight; Mean Platelet Volume 8.4; Platelet Count 216 k/uL (150-450); RDW 13.8 % (11.5-15.5)
--- NOTE | 2020-06-28 09:04 | P.PN ---
Subjective Progress Note Date: 06/28/20 Patient seen and evaluated. She had a bowel movement without bleeding. May resume blood thinner. Okay for discharge from surgical standpoint. Objective - Vital Signs Vital signs: Vital Signs Temp 97.7 F 06/28/20 07:32 Pulse 76 06/28/20 07:32 Resp 14 06/28/20 07:32 BP 168/84 06/28/20 07:32 Pulse Ox 94 L 06/28/20 07:32 Intake & Output 06/27/20 06/28/20 06/28/20 18:59 06:59 18:59 Intake Total 400 118 Balance 400 118 Intake: Oral 400 118 Other: Voiding Method Bedside Commode Diaper # Voids 2 - Labs CBC & Chem 7: 06/28/20 08:43 06/27/20 05:01 Labs: Abnormal Lab Results - Last 24 Hours (Table) 06/27/20 06/28/20 Range/Units 17:26 08:43 RBC 3.30 L (3.80-5.40) m/uL Hgb 11.1 L (11.4-16.0) gm/dL MCV 103.9 H (80.0-100.0) fL Urine Protein Trace H (Negative) Urine Blood Trace H (Negative) Ur Leukocyte Esterase Small H (Negative) Urine Mucus Rare H (None) /hpf
[2020-06-28] MEDS: ALBUTEROL NEBULIZED 2.5 MG/3 ML INHALATION SCH ×2 (09:35→12:54)
[2020-06-28] MEDS: SYMBICORT 160-4.5 MCG INHALER INHALATION SCH (09:35)
[2020-06-28] MEDS ORDERED: DABIGATRAN 75 MG CAP PO SCH (10:30)
--- NOTE | 2020-06-28 11:10 | P.PN ---
Subjective This is a pleasant 75-year-old female past medical history significant for atrial fibrillation s/p Watchmen procedure 05/27/2020, COPD, hypertension and dyslipidemia. She follows in the office with Dr. Gonzalez. She is seen and examined sitting up in bed in no acute distress. She states she had a small bowel movement this morning that had no signs of blood per the patient. She is currently complaining of lower back discomfort for which the nurse is getting her morning pain pill. Blood pressure 168/84 heart rate 88 afebrile maintaining oxygen saturation on nasal cannula. Laboratory data reviewed, WBC 9, hemoglobin 11.1 and platelets 216. She converted back to sinus rhythm this morning. GENERAL: Well-appearing, well-nourished and in no acute distress. NECK: Supple without JVD or thyromegaly. LUNGS: Breath sounds clear to auscultation bilaterally. Respiration equal and unlabored. No wheezes, rales or rhonchi. HEART: Regular rate and rhythm without murmurs, rubs or gallops. S1 and S2 heard. EXTREMITIES: Normal range of motion, no edema. No clubbing or cyanosis. Peripheral pulses intact. ASSESSMENT Possible GI bleed with history of previous GI bleed Paroxysmal atrial fibrillation status post watchmen procedure, converted back to SR this morning. Hypertension Dyslipidemia COPD PLAN No further episodes of GI bleeding. Hemoglobin stable. Okay to resume Pradaxa per surgery. Otherwise stable from a cardiac perspective. Nurse Practitioner note has been reviewed, I agree with a documented findings and plan of care. Patient was seen and examined. Objective - Vital Signs Vital signs: Vital Signs Temp 97.7 F 06/28/20 07:32 Pulse 80 06/28/20 09:49 Resp 18 06/28/20 09:49 BP 168/84 06/28/20 07:32 Pulse Ox 94 L 06/28/20 09:35 Intake & Output 06/27/20 06/28/20 06/28/20 18:59 06:59 18:59 Intake Total 400 118 Balance 400 118 Intake: Oral 400 118 Other: Voiding Method Bedside Commode Bedside Commode Diaper Diaper # Voids 2 - Labs CBC & Chem 7: 06/28/20 08:43 06/27/20 05:01 Labs: Abnormal Lab Results - Last 24 Hours (Table) 03/08/21 03/09/21 Range/Units 17:26 08:43 RBC 3.30 L (3.80-5.40) m/uL Hgb 11.1 L (11.4-16.0) gm/dL MCV 103.9 H (80.0-100.0) fL Urine Protein Trace H (Negative) Urine Blood Trace H (Negative) Ur Leukocyte Esterase Small H (Negative) Urine Mucus Rare H (None) /hpf
--- NOTE | 2020-06-28 11:28 | P.PN ---
Subjective Progress Note Date: 06/28/20 Principal diagnosis: Rectal bleeding The patient is seen and examined sitting up in bed. She is without any current complaints. She states that she is feeling better today. No further episodes of rectal bleeding or blood in the stool. She denies abdominal pain, nausea, or vomiting. She states she Objective - Vital Signs Vital signs: Vital Signs Temp 97.7 F 06/28/20 07:32 Pulse 76 06/28/20 07:32 Resp 14 06/28/20 07:32 BP 168/84 06/28/20 07:32 Pulse Ox 94 L 06/28/20 07:32 Intake & Output 06/27/20 06/28/20 06/28/20 18:59 06:59 18:59 Intake Total 400 Balance 400 Intake: Oral 400 Other: Voiding Method Bedside Commode Diaper # Voids 2 - Exam General appearance: The patient is alert, oriented, appears in no acute distress. HET: Head is normocephalic and atraumatic. Conjunctiva pink. Sclera anicteric. Neck: Supple without lymphadenopathy. Abdomen: Soft, nontender, nondistended with bowel sounds. No guarding or rigidity. Extremities: Normal skin color and turgor. No pedal edema Skin: No rashes, no jaundice Neurological: No focal deficits. Alert and oriented 3. - Labs CBC & Chem 7: 06/28/20 08:43 06/27/20 05:01 Labs: Abnormal Lab Results - Last 24 Hours (Table) 06/27/20 06/27/20 Range/Units 05:01 17:26 RBC 2.88 L (4.10-5.20) X 10*6/uL Hgb 9.4 L (12.0-15.0) g/dL Hct 30.0 L (37.2-46.3) % MCV 104.2 H (80.0-97.0) fL MCH 32.6 H (27.0-32.0) pg MCHC 31.3 L (32.0-37.0) g/dL Urine Protein Trace H (Negative) Urine Blood Trace H (Negative) Ur Leukocyte Esterase Small H (Negative) Urine Mucus Rare H (None) /hpf Assessment and Plan (1) Colitis Narrative/Plan: 75-year-old female who presented to the hospital for constellation of complaints including weakness and fatigue, nausea, vomiting, diarrhea and abdominal pain. Patient had been feeling weak and unable to take her medications due to nausea and vomiting. She reported diarrhea with associated bright red blood per rectum which she states is happening in the past secondary to hemorrhoids. She did blue ve EGD and colonoscopy performed in 2019 with findings of esophagitis, gastritis and as previously had polypectomy and AV malformation noted as well as internal and external hemorrhoids. She states that she often will see blood per rectum in the setting of diarrhea. Overall the patient is feeling improved today. Computed tomography scan did show ecchymoses and questionable colitis, suspicion is for possible infectious colitis, with inflammatory process unlikely given recent colonoscopy and ischemic colitis also possible although less likely. Abdominal improved. Patient having no further episodes of rectal bleeding or blood in the stool. Current Visit: Yes Status: Acute Code(s): K52.9 - NONINFECTIVE GASTROEN TERITIS AND COLITIS, UNSPECIFIED SNOMED Code(s): 355926355 (2) Abdominal pain Current Visit: Yes Status: Acute Code(s): R10.9 - UNSPECIFIED ABDOMINAL PAIN SNOMED Code(s): 46783408 (3) GI bleeding Current Visit: Yes Status: Acute Code(s): K92.2 - GASTROINTESTINAL HEMORRHAGE, UNSPECIFIED SNOMED Code(s): 73964261 Plan: Supportive care Heart healthy diet Continue antibiotics as ordered Surgical service has been consulted to see the patient and having established relationship we'll defer any endoscopic evaluation to their service Continue other medical management per primary team Anticoagulation may be resumed if cleared by general surgery and cardiology No plans for any endoscopic intervention at this time Thank you for allowing us to be to participate in the care of the patient, we will sign off at this time Dr. Hammond I agree with the dictator's note, documented as a scribe by Pebbles Muñiz.
[2020-06-28 12:38] LABS: African American GFR (CKD) 90 (>60 ml/min/1.73 sqM); Anion Gap 6 mmol/L; Blood Urea Nitrogen 22 mg/dL (7-17); Calcium 9.8 mg/dL (8.4-10.2); Carbon Dioxide 27 mmol/L (22-30); Chloride 106 mmol/L (98-107); Glucose 115 mg/dL (74-99); Non-African American GFR(CKD) 78 (>60 ml/min/1.73 sqM); Potassium 3.8 mmol/L (3.5-5.1); Sodium 139 mmol/L (137-145)
[2020-06-28 12:55] VITALS: RESP 16
[2020-06-28 13:04] VITALS: PULSE 89
--- NOTE | 2020-06-28 18:43 | PN ---
PROGRESS NOTE Patient is seen for followup for acute kidney injury. She is currently doing well. Renal function has improved. Patient is actually going home. PHYSICAL EXAMINATION: On examination today, her heart rate was 80 per minute. Blood pressure 168/84. Patient is afebrile. Examination of lower extremities shows no evidence of edema. Abdomen is soft, nontender. The patient is very hard of hearing and has to lip-read. LABS: Sodium 139, potassium 3.8, BUN 22, creatinine 0.75. ASSESSMENT: 1. Acute kidney injury, prerenal, currently resolved. 2. Hypertension with decreased dose of ALVARO inhibitors. 3. Gastrointestinal bleed, most likely related to hemorrhoids, but previous history of erosive active esophagitis and colonic AV malformations. 4. Hypokalemia, status post replacement. PLAN: Patient can be discharged. Avoid NSAIDs post discharge. Encourage increased oral intake. MMODL / IJN: [id number] /
--- NOTE | 2020-06-29 18:00 | P.DS ---
Providers Date of admission: 06/27/20 10:28 Expected date of discharge: 06/28/20 Attending physician: Jovani Pelaez Consults: 06/25/20 12:55 Consult Physician Stat Consulting Provider: Wilmer Hammond Consult Reason/Comments: GI bleed Do you want consulting provider notified?: Yes 06/25/20 14:47 Consult Physician Routine Consulting Provider: Anyi Dan Consult Reason/Comments: abd pain/GI bleed Do you want consulting provider notified?: Yes 06/25/20 19:24 Consult Physician Routine Consulting Provider: López Varner Consult Reason/Comments: GI bleed-watchman procedure Do you want consulting provider notified?: Yes 06/26/20 13:58 Consult Physician Urgent Consulting Provider: Alex Galvan Consult Reason/Comments: left hip injury after fall Do you want consulting provider notified?: Yes 06/26/20 14:03 Consult Physician Urgent Consulting Provider: Blanca Smart Consult Reason/Comments: JOVON Do you want consulting provider notified?: Yes Primary care physician: [facility] Course: Chief Complaint: Fresh blood per rectum History of presenting complaint: This is a very pleasant 74-year-old patient of Dr. Faizan estrella. Chronic stable medical conditions include GERD, hyperlipidemia, hypertension, osteoarthritis, paroxysmal atrial fibrillation, varicose veins, diverticulosis. Patient is very hard of hearing and does lipreading. In February 2020 [Dr. Brewster] colonoscopy internal hemorrhoids grade 3 and external prolapsed hemorrhoids. EGD-grade a erosive esophagitis and some chronic gastritis. Patient recently had a watchman procedure done by Dr. Concepcion at [facility] on 05/27/2020.. Patient currently on aspirin and Pradaxa. 2 days patient started out with some nausea vomiting abdominal discomfort. It had fresh bleeding per rectum today. Brought into the ER. No fever no chills. Daughter is the bedside. Patient does feel tired and rundown. Patient was seen by cardiology. Aspirin discontinued. Continue with Pradaxa. Seen by Dr. Brewster from general surgery. No further intervention. Also seen by GI Dr. Barron. Not for any further intervention. It was felt the bleeding could be from hemorrhoids. This was discussed with the patient. Questions answered. Patient also had had a fall and bumped her left hip. Fracture was ruled out. Hematoma present. Managed conservatively. Seen by orthopedics. Consultation: Dr. Barron from GI Dr. Brewster from general surgery Dr. Rowell from cardiology Dr. Galvan from orthopedics Past medical history to include: Asthma, GERD, hyperlipidemia, hypertension, osteoarthritis, paroxysmal atrial fibrillation, varicose veins, stomach ulcer, diverticulitis. Esophagitis, gastritis, internal/external hemorrhoids, watchman procedure Social history: Does not smoke or drink Cold. Lives alone. Physical examination: VITAL SIGNS: Afebrile, 90, 16, GENERAL: BMI 24, reclining in bed, tired EYES: Pupils equal. Conjunctiva pale. HEENT: External appearance of nose and ears normal, oral cavity grossly normal. Very hard of hearing NECK: JVD not raised; masses not palpable. HEART: First and second heart sounds are normal; no edema. LUNGS: Respiratory rate normal, decreased breaths sounds. ABDOMEN: Soft, nontender, liver spleen not palpable, no masses palpable. PSYCH: Alert and oriented x3; mood and affect normal. MUSCULAR skeletal:: Evidence of OA especially in the hands INVESTIGATIONS, reviewed in the clinical context: June 27: Hemoglobin 8.4 potassium 3.2 creatinine 0.82 June 26: White count 10.2 hemoglobin 11.1 platelets 182 WBC 15 hemoglobin 12 platelets 228 INR 1.8 potassium 3.6 bun 42 creatinine 1.28 Previous labs: 05/19/2020: Bun 19 creatinine 0.9 Assessment and plan: -Acute lower GI bleed. Hitchcock to be from internal hemorrhoids. Aspirin discontinued. - moderate persistent asthma, continue with Symbicort -GERD, on PPI -Hyperlipidemia, on Pravachol -Essential hypertension, on verapamil ER, Univasc, nadolol -Primary osteoarthritis, use Tylenol when necessary -Paroxysmal atrial fibrillation currently in sinus rhythm -Chronic Esophagitis and gastritis., On PPI -Acute blood loss anemia from GI bleed -Very hard of hearing -Acute kidney injury. Better. Likely prerenal -Left hip - contusion/hematoma secondary to fall. No fracture. Seen by orthopedics. Conservative approach. Disposition: Home Patient Condition at Discharge: Good Plan - Discharge Summary Discharge Rx Participant: No New Discharge Prescriptions: New Dicyclomine [Bentyl] 10 mg PO QID PRN #30 cap PRN Reason: Spasms Dabigatran [Pradaxa] 75 mg PO BID #60 cap Continue Pravastatin Sodium [Pravachol] 40 mg PO DAILY Hydrocodone/Acetaminophen [[place] 7.5-325] 1 tab PO QID PRN PRN Reason: Pain Baclofen [Lioresal] 10 mg PO TID PRN PRN Reason: Muscle Spasm Moexipril [Univasc] 7.5 mg PO DAILY Nadolol 40 mg PO DAILY Latanoprost [Xalatan 0.005%] 2 drop BOTH EYES HS Budesonide/Formoterol Fumarate [Symbicort 160-4.5 Mcg Inhaler] 2 puff INHALATION RT-BID Albuterol Nebulized [Ventolin Nebulized] 2.5 mg INHALATION RT-TID Albuterol Inhaler [Ventolin Hfa Inhaler] 1 puff INHALATION RT-QID PRN PRN Reason: Shortness Of Breath Verapamil HCl [Verapamil ER] 240 mg PO DAILY Diclofenac Sodium [Voltaren Gel] 2 gram TOPICAL BID PRN PRN Reason: Pain Omeprazole 20 mg PO DAILY Discontinued Dabigatran [Pradaxa] 150 mg PO BID Aspirin EC [Ecotrin Low Dose] 81 mg PO DAILY Hydrochlorothiazide [hydroCHLOROthiazide] 12.5 mg PO DAILY No Action Denosumab [Prolia] 60 mg SQ Q180D Discharge Medication List Baclofen [Lioresal] 10 mg PO TID PRN 07/20/15 [History] Hydrocodone/Acetaminophen [[place] 7.5-325] 1 tab PO QID PRN 07/20/15 [History] Moexipril [Univasc] 7.5 mg PO DAILY 07/20/15 [History] Pravastatin Sodium [Pravachol] 40 mg PO DAILY 07/20/15 [History] Latanoprost [Xalatan 0.005%] 2 drop BOTH EYES HS 10/15/16 [History] Nadolol 40 mg PO DAILY 10/15/16 [History] Albuterol Nebulized [Ventolin Nebulized] 2.5 mg INHALATION RT-TID 08/11/17 [History] Budesonide/Formoterol Fumarate [Symbicort 160-4.5 Mcg Inhaler] 2 puff INHALATION RT-BID 08/11/17 [History] Albuterol Inhaler [Ventolin Hfa Inhaler] 1 puff INHALATION RT-QID PRN 12/03/19 [History] Denosumab [Prolia] 60 mg SQ Q180D 04/06/20 [History] Diclofenac Sodium [Voltaren Gel] 2 gram TOPICAL BID PRN 04/06/20 [History] Verapamil HCl [Verapamil ER] 240 mg PO DAILY 04/06/20 [History] Omeprazole 20 mg PO DAILY 06/25/20 [History] Dabigatran [Pradaxa] 75 mg PO BID #60 cap 06/28/20 [Rx] Dicyclomine [Bentyl] 10 mg PO QID PRN #30 cap 06/28/20 [Rx] Follow up Appointment(s)/Referral(s): Chidi Gonzalez MD [STAFF PHYSICIAN] - 2 Weeks [facility] [NON-STAFF] - As Needed (Supplier of Rollator, 4 wheeled walker with seat. ) [facility], [NON-STAFF] - 1-2 Days Faizan Estrella MD [Primary Care Provider] - 1-2 days Patient Instructions/Handouts: Abdominal Pain (ED) Activity/Diet/Wound Care/Special Instructions: activity as tolerated heart healthy diet/low fiber diet Discharge Disposition: HOME WITH HOME HEALTH SERVICES
== END 2020-06-28 14:54 | disposition home health service (06) | DRG 394 ==
LOC: EC 10:35 → UNDOADMOB 12:58 → 6NMEDSUR 12:58 → 5NMEDONC 13:45 → 6NMEDSUR 14:01 → OBSVTOIN 06-27 10:28
PROVIDERS: ADMIT Hospitalist; ATTEND Hospitalist
DX: K64.8 Other hemorrhoids (principal); N17.9 Acute kidney failure, unspecified; D62 Acute posthemorrhagic anemia; K52.9 Noninfective gastroenteritis and colitis, unspecified; Z79.01 Long term (current) use of anticoagulants; G89.29 Other chronic pain; M54.9 Dorsalgia, unspecified; Z79.51 Long term (current) use of inhaled steroids; Z79.82 Long term (current) use of aspirin; I10 Essential (primary) hypertension; J44.9 Chronic obstructive pulmonary disease, unspecified; E78.5 Hyperlipidemia, unspecified; M19.91 Primary osteoarthritis, unspecified site; H91.90 Unspecified hearing loss, unspecified ear; H40.9 Unspecified glaucoma; Z82.5 Family history of asthma and other chronic lower respiratory diseases; I48.0 Paroxysmal atrial fibrillation; K57.90 Diverticulosis of intestine, part unspecified, without perforation or abscess without bleeding; J45.40 Moderate persistent asthma, uncomplicated; S70.02XA Contusion of left hip, initial encounter; W19.XXXA Unspecified fall, initial encounter; Z87.19 Personal history of other diseases of the digestive system; Z86.010 Personal history of colon polyps; Z87.11 Personal history of peptic ulcer disease; E87.6 Hypokalemia; Z77.22 Contact with and (suspected) exposure to environmental tobacco smoke (acute) (chronic); K29.50 Unspecified chronic gastritis without bleeding; S30.0XXA Contusion of lower back and pelvis, initial encounter; Z90.710 Acquired absence of both cervix and uterus; Z95.818 Presence of other cardiac implants and grafts; Z20.828 Contact with and (suspected) exposure to other viral communicable diseases; K21.00 Gastro-esophageal reflux disease with esophagitis, without bleeding
CPT/HCPCS: 36415; 73502; 74150; 74176; 80048; 80053; 81001; 82272; 83605; 83690; 83735; 84484; 85025; 85027; 85610; 85730; 87635; 93005; 94640; 94760; 96374; 96375; 96376; 99285

== ENCOUNTER 2020-08-07 13:43 | Inpatient (IN) | payer MEDICARE, OTHER ==
--- NOTE | 2020-08-07 14:12 | ED ---
General Adult HPI - General Chief complaint: Shortness of Breath Stated complaint: SOB Time Seen by Provider: 08/07/20 14:12 Source: patient Mode of arrival: wheelchair Limitations: no limitations - History of Present Illness Initial comments: Nancy is a 75-year-old female with extensive past medical history as documented most significant for COPD. Patient presents the ER today for evaluation of shortness of breath for a couple days duration. No chest pain. No palpitations. She has been doing breathing treatments at home with no improvement. No known sick contacts. No fevers or myalgias. - Related Data Home Medications Medication Instructions Recorded Confirmed Baclofen [Lioresal] 10 mg PO TID PRN 07/20/15 08/07/20 Hydrocodone/Acetaminophen [[place] 1 tab PO QID PRN 07/20/15 08/07/20 7.5-325] Moexipril [Univasc] 7.5 mg PO DAILY 07/20/15 08/07/20 Pravastatin Sodium [Pravachol] 40 mg PO DAILY 07/20/15 08/07/20 Latanoprost [Xalatan 0.005%] 1 drop BOTH EYES HS 10/15/16 08/07/20 Nadolol 40 mg PO DAILY 10/15/16 08/07/20 Albuterol Nebulized [Ventolin 2.5 mg INHALATION RT-TID 08/11/17 08/07/20 Nebulized] Budesonide/Formoterol Fumarate 2 puff INHALATION RT-BID 08/11/17 08/07/20 [Symbicort 160-4.5 Mcg Inhaler] Albuterol Inhaler [Ventolin Hfa 1 puff INHALATION RT-QID PRN 12/03/19 08/07/20 Inhaler] Denosumab [Prolia] 60 mg SQ Q180D 04/06/20 08/07/20 Diclofenac Sodium [Voltaren Gel] 2 gram TOPICAL BID PRN 04/06/20 08/07/20 Omeprazole 20 mg PO DAILY 06/25/20 08/07/20 Aspirin EC [Ecotrin Low Dose] 81 mg PO DAILY 08/07/20 08/07/20 Clopidogrel Bisulfate [Plavix] 75 mg PO DAILY 08/07/20 08/07/20 Umeclidinium [place] [Incruse 1 puff INHALATION RT-DAILY 08/07/20 08/07/20 Ellipta] Verapamil HCl [Verapamil ER] 240 mg PO BID 08/07/20 08/07/20 cycloSPORINE 0.05% OPHTH SOLN 1 drop BOTH EYES BID 08/07/20 08/07/20 [Restasis] hydroCHLOROthiazide [Hydrodiuril] 12.5 mg PO DAILY 08/07/20 08/07/20 Allergies Allergy/AdvReac Type Severity Reaction Status Date / Time No Known Allergies Allergy Verified 08/07/20 14:54 Review of Systems ROS Statement: Those systems with pertinent positive or pertinent negative responses have been documented in the HPI. ROS Other: All systems not noted in ROS Statement are negative. Past Medical History Past Medical History: Atrial Fibrillation, Asthma, COPD, GERD/Reflux, GI Bleed, Hyperlipidemia, Hypertension, Osteoarthritis (OA), Pneumonia, Vascular Disorder Additional Past Medical History / Comment(s): Pt is very hard of hearing, she wears a hearing aide and normally reads lips-she reads and writes. Other Hx: Bronchitis, gastric ulcer, diverticular disease, lower GI bleed/AV malformation with ablation, benign colon polyp, borderline hyperlipidemia, arthritis mostly in back, slight bilateral glaucoma, varicosities. History of Any Multi-Drug Resistant Organisms: None Reported Past Surgical History: Adenoidectomy, Appendectomy, Heart Catheterization, Hysterectomy, Tonsillectomy, Tubal Ligation Additional Past Surgical History / Comment(s): Colonoscopy/benign polypectomy/AV malformation ablation, bilateral cataract removals, watchmen procedure Past Anesthesia/Blood Transfusion Reactions: No Reported Reaction Additional Past Anesthesia/Blood Transfusion Reaction / Comment(s): never recieved blood before. Past Psychological History: No Psychological Hx Reported Smoking Status: Never smoker, Second hand smoke exposure Past Alcohol Use History: None Reported Past Drug Use History: None Reported - Past Family History Father Family Medical History: COPD Additional Family Medical History / Comment(s): EMPHYSEMA Mother Family Medical History: Osteoarthritis (OA) Additional Family Medical History / Comment(s): EMPHYSEMA, BOWEL OBSTRUCTION/COLOSTOMY General Exam - General Exam Comments Initial Comments: Physical Exam GENERAL: Patient is well-developed and well-nourished. Patient is nontoxic and well-hydrated and is in no distress. HENT: Normocephalic, Atraumatic. EYES: PERRL, EOMI PULMONARY: Tachypnea CARDIOVASCULAR: RRR Warm and well perfused extremities ABDOMEN: Non-distended SKIN: No rashes or bruising : Deferred NEUROLOGIC: Hard of hearing MUSCULOSKELETAL: Moving all extremities with no apparent injury PSYCHIATRIC: No SI/HI Limitations: no limitations Course Vital Signs 08/07/20 08/07/20 08/07/20 13:47 16:35 19:11 Temperature 97.8 F Pulse Rate 68 63 85 Respiratory 16 18 18 Rate Blood Pressure 151/85 144/69 149/70 O2 Sat by Pulse 96 92 L 100 Oximetry Medical Decision Making - Medical Decision Making Patient was seen and evaluated history is obtained from patient and medical record Labs and x-ray imaging were obtained Labs and x-rays are concerning for congestive heart failure, COVID-19 is negative Troponin is negative Patient will be admitted for CHF, this plan was discussed with Dr. León who accepts admission - Lab Data Result diagrams: 08/07/20 14:28 08/07/20 14:28 Lab Results 08/07/20 08/07/20 08/07/20 Range/Units 14:28 14:28 14:28 WBC 8.7 (3.8-10.6) k/uL RBC 3.81 (3.80-5.40) m/uL Hgb 12.3 (11.4-16.0) gm/dL Hct 36.7 (34.0-46.0) % MCV 96.2 D (80.0-100.0) fL MCH 32.4 (25.0-35.0) pg MCHC 33.7 (31.0-37.0) g/dL RDW 14.5 (11.5-15.5) % Plt Count 308 (150-450) k/uL MPV 7.6 Neutrophils % 71 % Lymphocytes % 17 % Monocytes % 8 % Eosinophils % 1 % Basophils % 0 % Neutrophils # 6.1 (1.3-7.7) k/uL Lymphocytes # 1.5 (1.0-4.8) k/uL Monocytes # 0.7 (0-1.0) k/uL Eosinophils # 0.1 (0-0.7) k/uL Basophils # 0.0 (0-0.2) k/uL PT 10.8 (9.0-12.0) sec INR 1.0 (<1.2) APTT 23.8 (22.0-30.0) sec D-Dimer 1.52 H (<0.60) mg/L FEU Sodium 140 (137-145) mmol/L Potassium 3.4 L (3.5-5.1) mmol/L Chloride 95 L (98-107) mmol/L Carbon Dioxide 37 H (22-30) mmol/L Anion Gap 8 mmol/L BUN 18 H (7-17) mg/dL Creatinine 0.81 (0.52-1.04) mg/dL Est GFR (CKD-EPI)AfAm 82 (>60 ml/min/1.73 sqM) Est GFR (CKD-EPI)NonAf 71 (>60 ml/min/1.73 sqM) Glucose 97 (74-99) mg/dL Plasma Lactic Acid [place] (0.7-2.0) mmol/L Calcium 10.4 H (8.4-10.2) mg/dL Magnesium 1.3 L (1.6-2.3) mg/dL Total Bilirubin 1.3 (0.2-1.3) mg/dL AST 24 (14-36) U/L ALT 13 (4-34) U/L Alkaline Phosphatase 120 (38-126) U/L Troponin I (0.000-0.034) ng/mL C-Reactive Protein 3.7 H (<1.0) mg/dL NT-Pro-B Natriuret Pep pg/mL Total Protein 6.7 (6.3-8.2) g/dL Albumin 3.8 (3.5-5.0) g/dL Coronavirus (PCR) (Not Detectd) 08/07/20 08/07/20 08/07/20 Range/Units 14:28 14:28 14:58 WBC (3.8-10.6) k/uL RBC (3.80-5.40) m/uL Hgb (11.4-16.0) gm/dL Hct (34.0-46.0) % MCV (80.0-100.0) fL MCH (25.0-35.0) pg MCHC (31.0-37.0) g/dL RDW (11.5-15.5) % Plt Count (150-450) k/uL MPV Neutrophils % % Lymphocytes % % Monocytes % % Eosinophils % % Basophils % % Neutrophils # (1.3-7.7) k/uL Lymphocytes # (1.0-4.8) k/uL Monocytes # (0-1.0) k/uL Eosinophils # (0-0.7) k/uL Basophils # (0-0.2) k/uL PT (9.0-12.0) sec INR (<1.2) APTT (22.0-30.0) sec D-Dimer (<0.60) mg/L FEU Sodium (137-145) mmol/L Potassium (3.5-5.1) mmol/L Chloride (98-107) mmol/L Carbon Dioxide (22-30) mmol/L Anion Gap mmol/L BUN (7-17) mg/dL Creatinine (0.52-1.04) mg/dL Est GFR (CKD-EPI)AfAm (>60 ml/min/1.73 sqM) Est GFR (CKD-EPI)NonAf (>60 ml/min/1.73 sqM) Glucose (74-99) mg/dL Plasma Lactic Acid [place] 1.1 (0.7-2.0) mmol/L Calcium (8.4-10.2) mg/dL Magnesium (1.6-2.3) mg/dL Total Bilirubin (0.2-1.3) mg/dL AST (14-36) U/L ALT (4-34) U/L Alkaline Phosphatase (38-126) U/L Troponin I (0.000-0.034) ng/mL C-Reactive Protein (<1.0) mg/dL NT-Pro-B Natriuret Pep 1320 pg/mL Total Protein (6.3-8.2) g/dL Albumin (3.5-5.0) g/dL Coronavirus (PCR) Not Detected (Not Detectd) 08/07/20 Range/Units 16:47 WBC (3.8-10.6) k/uL RBC (3.80-5.40) m/uL Hgb (11.4-16.0) gm/dL Hct (34.0-46.0) % MCV (80.0-100.0) fL MCH (25.0-35.0) pg MCHC (31.0-37.0) g/dL RDW (11.5-15.5) % Plt Count (150-450) k/uL MPV Neutrophils % % Lymphocytes % % Monocytes % % Eosinophils % % Basophils % % Neutrophils # (1.3-7.7) k/uL Lymphocytes # (1.0-4.8) k/uL Monocytes # (0-1.0) k/uL Eosinophils # (0-0.7) k/uL Basophils # (0-0.2) k/uL PT (9.0-12.0) sec INR (<1.2) APTT (22.0-30.0) sec D-Dimer (<0.60) mg/L FEU Sodium (137-145) mmol/L Potassium (3.5-5.1) mmol/L Chloride (98-107) mmol/L Carbon Dioxide (22-30) mmol/L Anion Gap mmol/L BUN (7-17) mg/dL Creatinine (0.52-1.04) mg/dL Est GFR (CKD-EPI)AfAm (>60 ml/min/1.73 sqM) Est GFR (CKD-EPI)NonAf (>60 ml/min/1.73 sqM) Glucose (74-99) mg/dL Plasma Lactic Acid [place] (0.7-2.0) mmol/L Calcium (8.4-10.2) mg/dL Magnesium (1.6-2.3) mg/dL Total Bilirubin (0.2-1.3) mg/dL AST (14-36) U/L ALT (4-34) U/L Alkaline Phosphatase (38-126) U/L Troponin I <0.012 (0.000-0.034) ng/mL C-Reactive Protein (<1.0) mg/dL NT-Pro-B Natriuret Pep pg/mL Total Protein (6.3-8.2) g/dL Albumin (3.5-5.0) g/dL Coronavirus (PCR) (Not Detectd) - EKG Data -: EKG Interpreted by Me EKG Comments: EKG was obtained she was obtained due to complaint of shortness breath, EKG was obtained at 1405 rate is 66 rhythm is sinus with first-degree block, OR is prolonged at 220, QRS 86 QTC prolonged at [address] elevations or depressions no evidence of ischemia or infarction. Disposition Clinical Impression: Congestive heart failure Disposition: ADMITTED IP TO THIS HOSP Condition: Stable
[2020-08-07 14:36] LABS: Basophils % (A) 0 %; Eosinophils # (A) 0.1 k/uL (0-0.7); Eosinophils % (A) 1 %; HCT 36.7 % (34.0-46.0); HGB 12.3 gm/dL (11.4-16.0); Lymphocytes # (A) 1.5 k/uL (1.0-4.8); Lymphocytes % (A) 17 %; MCH 32.4 pg (25.0-35.0); MCHC 33.7 g/dL (31.0-37.0); Mean Platelet Volume 7.6; Monocytes # (A) 0.7 k/uL (0-1.0); Monocytes % (A) 8 %; Neutrophils # (A) 6.1 k/uL (1.3-7.7); Neutrophils % (A) 71 %; Platelet Count 308 k/uL (150-450); RBC 3.81 m/uL (3.80-5.40); RDW 14.5 % (11.5-15.5); WBC 8.7 k/uL (3.8-10.6)
[2020-08-07 14:41] LABS: MCV 96.2 fL (80.0-100.0)
[2020-08-07 14:49] LABS: Albumin 3.8 g/dL (3.5-5.0); C Reactive Protein 3.7 mg/dL (<1.0); Calcium 10.4 mg/dL (8.4-10.2); Magnesium 1.3 mg/dL (1.6-2.3); Potassium 3.4 mmol/L (3.5-5.1); Total Bilirubin 1.3 mg/dL (0.2-1.3); Total Protein 6.7 g/dL (6.3-8.2)
[2020-08-07 14:50] LABS: Partial Thromboplastin Time 23.8 sec (22.0-30.0); Prothrombin Time 10.8 sec (9.0-12.0)
[2020-08-07 14:51] LABS: D-Dimer 1.52 mg/L FEU (<0.60)
--- NOTE | 2020-08-07 14:51 | XR ---
EXAMINATION TYPE: XR chest 1V portable DATE OF EXAM: 08/07/2020 COMPARISON: 12/03/2019 HISTORY: Short of breath TECHNIQUE: FINDINGS: Heart is enlarged. There is blunting of the costophrenic angles. There is mild pulmonary co ngestion. There is some interstitial increased density at the lung bases. There are chest leads. Bony thorax appears intact. IMPRESSION: Congestive heart failure with pleural effusions. Heart failure appears new compared to ol d exam.
--- NOTE | 2020-08-07 16:34 | CT ---
EXAMINATION TYPE: CT chest angio for PE DATE OF EXAM: 08/07/2020 COMPARISON: 05/14/2017 HISTORY: dyspnea CT DLP: 209.9 mGycm Automated exposure control for dose reduction was used. CONTRAST: Performed with IV Contrast, patient injected with 100 mL of Isovue 370. There are 3-D post processed images. Images obtained from the thoracic inlet to the diaphragm with IV contrast. There are mild to moderate bilateral pleural effusions. Heart is enlarged. There is mild pericardial effusion. There is bilateral basilar linear infiltrate and atelectasis. There are no hilar masses. Th ere is no mediastinal adenopathy. Thoracic aorta is intact. There is no aneurysm or dissection. The a scending aorta measures 3.3 cm. There is normal contrast opacification of the pulmonary arteries. There are no filling defects. The thoracic spine is intact. Sternum is intact. The upper abdominal soft tissues are intact. There is apparent implant in the left atrium on the left lateral aspect which is a change compared to old exam. IMPRESSION: No evidence of pulmonary embolism. There is cardiomegaly with pleural effusions and basilar atelectas is. This could relate to some chronic congestive heart failure. Small pericardial effusion. These abn ormalities are new compared to old exam.
[2020-08-07] MEDS ORDERED: MORPHINE SULFATE 4 MG/ML SYRINGE IVP STA (16:58)
[2020-08-07] MEDS ORDERED: POTASSIUM CHLORIDE ER 20 MEQ TAB.ER PO STA (18:56)
[2020-08-07] MEDS: FUROSEMIDE 10 MG/ML 4 ML VIAL IV SCH (19:11)
--- NOTE | 2020-08-07 23:53 | P.HPIM ---
History of Present Illness H&P Date: 08/07/20 Chief Complaint: SOB 75 year old female with COPD not on home oxygen patient comes in due to couple day history of exertional SOB, not improving with breathing treatment . patient denies any wheezing, she denies any coughing or increase phelgm production , denies fever, chills, denies recent travel, or hospitalization . she claims to be compliant with her meds, denies any history of CHF. she denies any chest pain . Over past couple days she noticed unusual SOB upon exertion , denies any PND or orthopnea, denies any leg swelling . she had a procedure of watchman , and has been started on a medications that she can not recall, she takes once daily and requesting it. she lives alone. and gets help from her granddaughter. inthe ED, covid was negative, imaging of the lungs , showed pleural effusion and small pericardial effusion , concerning for possible CHF. EKG showed NSR, with 1st degree AVB blood work showed low K and llow Mg d dimer was elevated, CTA of the chest showed no acute PE patient is very hard of hearing Review of Systems Pertinent positives as noted in HPI. All other systems were reviewed and are negative Past Medical History Past Medical History: Atrial Fibrillation, Asthma, COPD, GERD/Reflux, GI Bleed, Hyperlipidemia, Hypertension, Osteoarthritis (OA), Pneumonia, Vascular Disorder Additional Past Medical History / Comment(s): Pt is very hard of hearing, she wears a hearing aide and normally reads lips-she reads and writes. Other Hx: Bronchitis, gastric ulcer, diverticular disease, lower GI bleed/AV malformation with ablation, benign colon polyp, borderline hyperlipidemia, arthritis mostly in back, slight bilateral glaucoma, varicosities. History of Any Multi-Drug Resistant Organisms: None Reported Past Surgical History: Adenoidectomy, Appendectomy, Heart Catheterization, Hysterectomy, Tonsillectomy, Tubal Ligation Additional Past Surgical History / Comment(s): Colonoscopy/benign polypectomy/AV malformation ablation, bilateral cataract removals, watchmen procedure Past Anesthesia/Blood Transfusion Reactions: No Reported Reaction Additional Past Anesthesia/Blood Transfusion Reaction / Comment(s): never recieved blood before. Past Psychological History: No Psychological Hx Reported Smoking Status: Never smoker, Second hand smoke exposure Past Alcohol Use History: None Reported Past Drug Use History: None Reported - Past Family History Father Family Medical History: COPD Additional Family Medical History / Comment(s): EMPHYSEMA Mother Family Medical History: Osteoarthritis (OA) Additional Family Medical History / Comment(s): EMPHYSEMA, BOWEL OB STRUCTION/COLOSTOMY Medications and Allergies Home Medications Medication Instructions Recorded Confirmed Type Baclofen [Lioresal] 10 mg PO TID PRN 07/20/15 08/07/20 History Hydrocodone/Acetaminophen [[place] 1 tab PO QID PRN 07/20/15 08/07/20 History 7.5-325] Moexipril [Univasc] 7.5 mg PO DAILY 07/20/15 08/07/20 History Pravastatin Sodium [Pravachol] 40 mg PO DAILY 07/20/15 08/07/20 History Latanoprost [Xalatan 0.005%] 1 drop BOTH EYES HS 10/15/16 08/07/20 History Nadolol 40 mg PO DAILY 10/15/16 08/07/20 History Albuterol Nebulized [Ventolin 2.5 mg INHALATION RT-TID 08/11/17 08/07/20 History Nebulized] Budesonide/Formoterol Fumarate 2 puff INHALATION RT-BID 08/11/17 08/07/20 History [Symbicort 160-4.5 Mcg Inhaler] Albuterol Inhaler [Ventolin Hfa 1 puff INHALATION RT-QID PRN 12/03/19 08/07/20 History Inhaler] Denosumab [Prolia] 60 mg SQ Q180D 04/06/20 08/07/20 History Diclofenac Sodium [Voltaren Gel] 2 gram TOPICAL BID PRN 04/06/20 08/07/20 History Omeprazole 20 mg PO DAILY 06/25/20 08/07/20 History Aspirin EC [Ecotrin Low Dose] 81 mg PO DAILY 08/07/20 08/07/20 History Clopidogrel Bisulfate [Plavix] 75 mg PO DAILY 08/07/20 08/07/20 History Umeclidinium Valatie [Incruse 1 puff INHALATION RT-DAILY 08/07/20 08/07/20 History Ellipta] Verapamil HCl [Verapamil ER] 240 mg PO BID 08/07/20 08/07/20 History cycloSPORINE 0.05% OPHTH SOLN 1 drop BOTH EYES BID 08/07/20 08/07/20 History [Restasis] hydroCHLOROthiazide [Hydrodiuril] 12.5 mg PO DAILY 08/07/20 08/07/20 History Allergies Allergy/AdvReac Type Severity Reaction Status Date / Time No Known Allergies Allergy Verified 08/07/20 14:54 Physical Exam Vitals: Vital Signs Temp Pulse Resp BP Pulse Ox 08/07/20 21:00 98.8 F 78 18 145/88 93 L 08/07/20 20:00 76 17 149/90 98 08/07/20 19:11 85 18 149/70 100 08/07/20 16:35 63 18 144/69 92 L 08/07/20 13:47 97.8 F 68 16 151/85 96 Intake and Output 08/07/20 08/07/20 08/07/20 06:59 14:59 22:59 Other: Weight 50.349 kg Constitutional: No acute distress, conversant, pleasant Eyes: Anicteric sclerae, moist conjunctiva, Pupils equal round reactive to light ENMT: NC/AT Oropharynx clear, no erythema, or exudates Neck: Supple, FROM, no masses, or JVD No carotid bruits No thyromegaly Lungs: Clear to auscultation Clear to percussion Normal respiratory effort, no accessory muscle use Cardiovascular: Heart regular in rate and rhythm, No murmurs, gallops, or rubs No peripheral edema Abdominal: Soft Nontender, no guarding, rebound or rigidity Abdomen moving with respiration Normoactive bowel sounds No hepatomegaly, No splenomegaly No palpable mass No abdominal wall hernia noted Skin: Normal temperature, tone, texture, turgor No induration No subcutaneous nodules No rash, lesions No ulcers Extremities: No digital cyanosis No clubbing Pedal pulses intact and symmetrical Radial pulses intact and symmetrical No calf tenderness Psychiatric: Alert and oriented to person, place and time Appropriate affect fair judgement Neuro Muscles Strength 4/5 in all 4 extremities Sensation to light touch grossly present throughout Cranial nerves II-XII grossly intact No focal sensory deficits Lymphatics: no palpable cervical or supraclavicular , or inguinal lymph nodes Results CBC & Chem 7: 08/07/20 14:28 08/07/20 14:28 Labs: Abnormal Lab Results - Last 24 Hours (Table) 08/07/20 08/07/20 Range/Units 14:28 14:28 D-Dimer 1.52 H (<0.60) mg/L FEU Potassium 3.4 L (3.5-5.1) mmol/L Chloride 95 L (98-107) mmol/L Carbon Dioxide 37 H (22-30) mmol/L BUN 18 H (7-17) mg/dL Calcium 10.4 H (8.4-10.2) mg/dL Magnesium 1.3 L (1.6-2.3) mg/dL C-Reactive Protein 3.7 H (<1.0) mg/dL Assessment and Plan Assessment: exertional dyspnea with pleural effusion rule out new CHF check echocardiogram radiation monitor resume homemeds IV lasix cardiology eval check TSH check lipid profile hypokalemia and hypomagnesemia replace and follow up levels P.Afib in sinus rhythm , not on anticoagulation , s/p watchman procedure COPD not on home oxygen , compensated CODE STATUS:full code DVT prophylaxis: heparin sc tid Discussed with: Patient, ER, RN Anticipated length of stay > than [address]: home A total of 65 minutes was spent on the care of this complex patient more than 50% of the time was spent in counseling and care coordination.
[2020-08-08] MEDS: FUROSEMIDE 10 MG/ML 4 ML VIAL IV SCH ×2 (01:04→10:11)
[2020-08-08] MEDS: MAGNESIUM SULFATE-D5W PMX 1 GM in DEXTROSE/WATER 1 100ML.BAG IVPB SCH ×2 (01:04→02:05)
[2020-08-08] MEDS: SYMBICORT 160-4.5 MCG INHALER INHALATION SCH ×2 (07:15→20:46)
[2020-08-08] MEDS: ALBUTEROL NEBULIZED 2.5 MG/3 ML INHALATION SCH ×3 (07:15→20:45)
[2020-08-08] MEDS: IPRATROPIUM 0.5 MG/2.5 ML NEBU INHALATION SCH ×4 (07:17→21:09)
[2020-08-08] MEDS ORDERED: ALBUTEROL NEBULIZED 2.5 MG/3 ML INHALATION PRN (07:39)
[2020-08-08 09:25] LABS: Calcium 10.2 mg/dL (8.4-10.2); Magnesium 1.8 mg/dL (1.6-2.3); Potassium 3.5 mmol/L (3.5-5.1)
[2020-08-08] MEDS: HEPARIN SODIUM,PORCINE/PF 5,000 UNIT/0.5 ML SYRINGE SQ SCH ×2 (10:11→16:36)
[2020-08-08] MEDS: ASPIRIN 81 MG PO SCH (10:11)
[2020-08-08] MEDS: PANTOPRAZOLE 40 MG TABLET PO SCH (10:11)
[2020-08-08] MEDS: cycloSPORINE 0.05% OPHTH 0.4 ML DROPERETTE BOTH EYES SCH ×2 (10:12→21:40)
[2020-08-08] MEDS: VERAPAMIL SR 240 MG TABLET.ER PO SCH (10:12)
[2020-08-08] MEDS: hydroCHLOROthiazide 12.5 MG CAP PO SCH (10:12)
[2020-08-08] MEDS: PRAVASTATIN SODIUM 40 MG TAB PO SCH (10:12)
[2020-08-08] MEDS: CLOPIDOGREL 75 MG TAB PO SCH (10:12)
--- NOTE | 2020-08-08 10:39 | P.PN ---
Subjective Progress Note Date: 08/08/20 Hospital course: Patient is a 75-year-old female with a past medical history of hypertension, hyperlipidemia, atrial fibrillation recently had a watchman's device implanted on 05/27/2020, and COPD not on home oxygen dependent. She presented to the hospital on 08/07/20 with a chief complaint of shortness of breath. Patient was seen and fully evaluated in the emergency department and was found to have an elevated d-dimer of 1.52 and an elevated proBNP of 1320. Chest x-ray completed positive for bilateral pleural effusions. CTA negative for PE again showing bilateral pleural effusions. Covid 19 PCR negative. Patient was also found to have hypokalemia with potassium of 3.4 and hypomagnesemia with magnesium of 1.3. EKG was completed showing sinus rhythm at 66 bpm with first-degree AV block with a MI of 220 ms and a prolonged QT/QTC of 488/511 ms and no T-wave or ST abnormalities. Patient was admitted under our services secondary to concerns of new onset CHF accompanied by hypokalemia and hypomagnesemia. Physical exam: General: non toxic, no distress, appears at stated age Derm: warm, dry Head: atraumatic, normocephalic, symmetric Eyes: EOMI, no lid lag, anicteric sclera Mouth: no lip lesion, mucus membranes moist Cardiovascular: Irregularly irregular rhythm, no murmur, gallop, or rub. Positive posterior tibial pulses bilaterally. No lower extremity edema. Lungs: Respirations even, regular, and unlabored on room air. Lungs with crackl es at bilateral bases. No rhonchi or wheezes noted. No accessory muscle use. Abdominal: Abdomen soft, nontender to palpation, no guarding, no appreciable organomegaly Ext: no gross muscle atrophy, no edema, no contractures Neuro: CN II-XI grossly intact, no focal neuro deficits Psych: Alert, oriented, appropriate affect Assessment and Plan of Care: Exertional dyspnea with bilateral pleural effusions, concerns for new onset con gestive heart failure -ProBNP 1320, d-dimer 1.52 -Chest x-ray completed positive for bilateral pleural effusions. -CTA negative for PE again showing bilateral pleural effusions. Covid 19 PCR negative. -EKG was completed showing sinus rhythm at 66 bpm with first-degree AV block with a MI of 220 ms and a prolonged QT/QTC of 488/511 ms and no T-wave or ST abnormalities. -Echocardiogram to be completed, previous echo completed 09/18/18 showed a normal EF of 55-60%. -Cardiology following, appreciate further recommendations -Lasix 40 mg IVP daily -Close I's and O's and continue close monitoring of electrolytes through diuresis Hypomagnesemia, resolved -Initial magnesium 1.3, repeat after replacement 1.8 -We will continue monitoring closely throughout diuresis and replace electrolytes abnormalities as needed. Hypokalemia, resolved -Initial potassium 3.4 after replacement 3.5 -We will continue monitoring closely throughout diuresis and replace electrolytes abnormalities as needed. Hypertension -Continue daily medication management with hydrochlorothiazide, nadolol, verapamil, and lisinopril Atrial fibrillation -Watchman's device in place -Continue nadolol and verapamil. -DVT prophylaxis with heparin Hyperlipidemia -Continue daily medication management with pravastatin 40 mg daily. -Heart healthy diet CODE STATUS: Full code DVT prophylaxis: Heparin Discussed with: Patient and RN Anticipated discharge date: 1-[address]: Home A total of 45 minutes was spent on the care of this complex patient more than 50% of the time was spent in counseling and care coordination. Objective - Vital Signs Vital signs: Vital Signs Temp 98.3 F 08/08/20 10:08 Pulse 87 08/08/20 10:08 Resp 15 08/08/20 10:08 BP 141/70 08/08/20 10:08 Pulse Ox 93 L 08/08/20 10:08 Intake & Output 08/07/20 08/08/20 08/08/20 18:59 06:59 18:59 Intake Total 125 Output Total 900 Balance -900 125 Weight 50.349 kg 60.419 kg Intake: Oral 125 Output: Urine 900 Other: Voiding Method Toilet - Labs CBC & Chem 7: 08/07/20 14:28 08/08/20 08:15 Labs: Abnormal Lab Results - Last 24 Hours (Table) 08/07/20 08/07/20 08/08/20 Range/Units 14:28 14:28 08:15 D-Dimer 1.52 H (<0.60) mg/L FEU Potassium 3.4 L (3.5-5.1) mmol/L Chloride 95 L 89 L (98-107) mmol/L Carbon Dioxide 37 H 38 H (22-30) mmol/L BUN 18 H 18 H (7-17) mg/dL Glucose 112 H (74-99) mg/dL Calcium 10.4 H (8.4-10.2) mg/dL Magnesium 1.3 L (1.6-2.3) mg/dL C-Reactive Protein 3.7 H (<1.0) mg/dL
--- NOTE | 2020-08-08 11:04 | ECHOF ---
Referral Reason:chf MEASUREMENTS -------- HEIGHT: 157.5 cm WEIGHT: 63.5 kg BP: IVSd: 1.1 cm (0.6 - 1.1) LVIDd: 3.9 cm (3.9 - 5.3) LVPWd: 1.2 cm (0.6 - 1.1) IVSs: 1.3 cm LVIDs: 2.5 cm LVPWs: 1.5 cm LA Diam: 4.1 cm (2.7 - 3.8) Ao Diam: 2.9 cm (2.0 - 3.7) MV EXCURSION: 14.881 mm (> 18.000) MV EF SLOPE: 66 mm/s (70 - 150) EPSS: 0.5 cm MV E Lauri: 0.72 m/s MV DecT: 185 ms MV A Lauri: 0.22 m/s MV E/A Ratio: 3.34 RAP: 5.00 mmHg RVSP: 15.73 mmHg FINDINGS -------- Sinus rhythm. This was a technically good study. LV size, wall thickness and systolic function are normal, with an EF greater than 55%. The left roosevelt tricular size is normal. The right ventricle is normal in size. The left atrium is mildly dilated. The right atrial size is normal. There is mild aortic valve sclerosis. There is no evidence of aortic regurgitation. Mild mitral regurgitation is present. Mild tricuspid regurgitation present. Right ventricular systolic pressure is normal at < 35 mmHg. The pulmonic valve was not well visualized. The aortic root size is normal. There is a small, generalized pericardial effusion present. CONCLUSIONS -------- 1. This was a technically good study. 2. LV size, wall thickness and systolic function are normal, with an EF greater than 55%. 3. The left ventricular size is normal. 4. The right ventricle is normal in size. 5. The left atrium is mildly dilated. 6. The right atrial size is normal. 7. There is mild aortic valve sclerosis. 8. Mild mitral regurgitation is present. 9. Mild tricuspid regurgitation present. 10. The pulmonic valve was not well visualized. 11. The aortic root size is normal. 12. There is a small, generalized pericardial effusion present. DIRECT MARKETING MANAGER: Rachell Jasimne RDCS
[2020-08-08 11:19] VITALS: BMI 26.0
--- NOTE | 2020-08-08 12:16 | P.CRDCN ---
History of Present Illness Consult date: 08/08/20 History of present illness: HISTORY OF PRESENT ILLNESS: This is a 75 year old female with a past medical history significant for age of fibrillation, COPD, hypertension, hyperlipidemia, and previous GI bleed. Patient also has a history of a watchman procedure performed at [facility] on 05/27/[address] Concepcion. Patient follows in the office with Dr. Mckee. We have been asked to see the patient in consultation for CHF. Patient examined at the bedside. Patient states she has been feeling short of breath for the past 3 days. She reports the shortness of breath is only with exertion and resolves with rest. She is unsure if she had shortness of breath while laying flat. She reports she increased swelling to her lower extremities. Patient was hospitalized in June 2020 for possible GI bleed. Patient states her HCTZ was discontinued at that time and she has had some problems with swelling to her legs since that time. She reports this was recently resumed however. The patient was started on IV lasix and admitted to the hospital. She states her dyspnea has resolved and she feels back to her baseline. EKG reveals sinus mechanism with no signs of acute ischemia Chest xray and as appropriate failure with pleural effusions. Chest CTA: No evidence of pulmonary embolus and. There is Medically with pleural effusions and basilar atelectasis. Small pericardial effusion. Laboratory data: WBC 8.7. Hemoglobin 12.3. Platelet count 308. D-dimer 1.52. Sodium 130. Potassium 3.5. BUN 18. Creatinine 0.92. Lactic acid 1.1. Tropon in negative 1. BNP 1320. Current home cardiac medications include hydrochlorothiazide 12.5mg daily, verapamil 240 mg twice a day, pravastatin 40 mg daily, Nadolol 40mg daily, Moexipril 7.5mg daily, Plavix 75 mg daily, and aspirin 81 mg daily Echocardiogram obtained reveals ejection fraction greater than 55%, mild mitral regurgitation, mild tricuspid regurgitation, and small generalized Larissa e ffusion. REVIEW OF SYSTEMS: At the time of my exam: CONSTITUTIONAL: Denies fever or chills. HEENT: Denies blurred vision, vision changes, or eye pain. Denies hemoptysis CARDIOVASCULAR: Denies chest pain. Denies orthopnea. Denies PND. Denies palpitations RESPIRATORY: Denies shortness of breath. GASTROINTESTINAL: Denies abdominal pain. Denies nausea or vomiting. HEMATOLOGIC: Denies bleeding disorders. GENITOURINARY: Denies any blood in urine. SKIN: Denies pruitis. Denies rash. PHYSICAL EXAM: VITAL SIGNS: Reviewed. GENERAL: Well-developed in no acute distress. HEENT: Head is normocephalic. Pupils are equal, round. Sclerae anicteric. Mucous membranes of the mouth are moist. Neck supple. No JVD or thyromegaly LUNGS: Respirations even and unlabored. Lungs diminished bilaterally with faint bibasilar rales. HEART: Regular rate and rhythm. S1 and S2 heard. ABDOMEN: Soft. Nondistended. Nontender. EXTREMITIES: Normal range of motion. No clubbing or cyanosis. Peripheral pulses intact. No lower extremity edema NEUROLOGIC: Awake and alert. Oriented x 3. ASSESSMENT: Exertional dyspnea New onset diastolic congestive heart failure Paroxysmal atrial fibrillation with recent watchman procedure at [place], 08/2020 Hypertension Hyperlipidemia COPD History of GI bleed GERD PLAN: Discontinue IV lasix. Begin oral lasix tomorrow morning Continue HCTZ Continue additional home cardiac medications Patient is stable for discharge home today from a cardiac standpoint She is to follow up outpatient with Dr. Mckee Nurse practitioner note has been reviewed by physician. Signing provider agrees with the documented findings, assessment, and plan of care. Past Medical History Past Medical History: Atrial Fibrillation, Asthma, COPD, GERD/Reflux, GI Bleed, Hyperlipidemia, Hypertension, Osteoarthritis (OA), Pneumonia, Vascular Disorder Additional Past Medical History / Comment(s): Pt is very hard of hearing, she wears a hearing aide and normally reads lips-she reads and writes. Other Hx: Bronchitis, gastric ulcer, diverticular disease, lower GI bleed/AV malformation with ablation, benign colon polyp, borderline hyperlipidemia, arthritis mostly in back, slight bilateral glaucoma, varicosities. History of Any Multi-Drug Resistant Organisms: None Reported Past Surgical History: Adenoidectomy, Appendectomy, Heart Catheterization, Hysterectomy, Tonsillectomy, Tubal Ligation Additional Past Surgical History / Comment(s): Colonoscopy/benign polypectomy/AV malformation ablation, bilateral cataract removals, watchmen procedure Past Anesthesia/Blood Transfusion Reactions: No Reported Reaction Additional Past Anesthesia/Blood Transfusion Reaction / Comment(s): never recieved blood before. Past Psychological History: No Psychological Hx Reported Smoking Status: Never smoker, Second hand smoke exposure Past Alcohol Use History: None Reported Past Drug Use History: None Reported - Past Family History Father Family Medical History: COPD Additional Family Medical History / Comment(s): EMPHYSEMA Mother Family Medical History: Osteoarthritis (OA) Additional Family Medical History / Comment(s): EMPHYSEMA, BOWEL OBSTRUCTION/C OLOSTOMY Medications and Allergies Home Medications Medication Instructions Recorded Confirmed Type Baclofen [Lioresal] 10 mg PO TID PRN 07/20/15 08/07/20 History Hydrocodone/Acetaminophen [[place] 1 tab PO QID PRN 07/20/15 08/07/20 History 7.5-325] Moexipril [Univasc] 7.5 mg PO DAILY 07/20/15 08/07/20 History Pravastatin Sodium [Pravachol] 40 mg PO DAILY 07/20/15 08/07/20 History Latanoprost [Xalatan 0.005%] 1 drop BOTH EYES HS 10/15/16 08/07/20 History Nadolol 40 mg PO DAILY 10/15/16 08/07/20 History Albuterol Nebulized [Ventolin 2.5 mg INHALATION RT-TID 08/11/17 08/07/20 History Nebulized] Budesonide/Formoterol Fumarate 2 puff INHALATION RT-BID 08/11/17 08/07/20 History [Symbicort 160-4.5 Mcg Inhaler] Albuterol Inhaler [Ventolin Hfa 1 puff INHALATION RT-QID PRN 12/03/19 08/07/20 History Inhaler] Denosumab [Prolia] 60 mg SQ Q180D 04/06/20 08/07/20 History Diclofenac Sodium [Voltaren Gel] 2 gram TOPICAL BID PRN 04/06/20 08/07/20 History Omeprazole 20 mg PO DAILY 06/25/20 08/07/20 History Aspirin EC [Ecotrin Low Dose] 81 mg PO DAILY 08/07/20 08/07/20 History Clopidogrel Bisulfate [Plavix] 75 mg PO DAILY 08/07/20 08/07/20 History Umeclidinium [place] [Incruse 1 puff INHALATION RT-DAILY 08/07/20 08/07/20 History Ellipta] Verapamil HCl [Verapamil ER] 240 mg PO BID 08/07/20 08/07/20 History cycloSPORINE 0.05% OPHTH SOLN 1 drop BOTH EYES BID 08/07/20 08/07/20 History [Restasis] hydroCHLOROthiazide [Hydrodiuril] 12.5 mg PO DAILY 08/07/20 08/07/20 History Allergies Allergy/AdvReac Type Severity Reaction Status Date / Time No Known Allergies Allergy Verified 08/07/20 14:54 Physical Exam Vitals: Vital Signs Temp Pulse Pulse Resp BP BP Pulse Ox 08/08/20 11:12 88 08/08/20 10:59 93 08/08/20 10:08 98.3 F 87 15 141/70 93 L 08/08/20 07:25 91 08/08/20 07:18 90 90 L 08/08/20 04:00 97.9 F 75 18 147/74 93 L 08/08/20 02:00 74 18 08/07/20 23:33 74 18 151/75 93 L 08/07/20 22:34 98.3 F 74 18 151/75 93 L 08/07/20 21:00 98.8 F 78 18 145/88 93 L 08/07/20 20:00 76 17 149/90 98 08/07/20 19:11 85 18 149/70 100 08/07/20 16:35 63 18 144/69 92 L 08/07/20 13:47 97.8 F 68 16 151/85 96 Intake and Output 08/07/20 08/08/20 08/08/20 22:59 06:59 14:59 Intake Total 125 Output Total 900 Balance -900 125 Intake: Oral 125 Output: Urine 900 Other: Voiding Method Toilet Toilet Weight 50.349 kg 60.419 kg 60.419 kg Results 08/07/20 14:28 08/08/20 08:15 Cardiac Enzymes 08/07/20 08/07/20 Range/Units 14:28 16:47 AST 24 (14-36) U/L Troponin I <0.012 (0.000-0.034) ng/mL Coagulation 08/07/20 Range/Units 14:28 PT 10.8 (9.0-12.0) sec APTT 23.8 (22.0-30.0) sec Lipids 08/08/20 Range/Units 08:15 Triglycerides 110 (<150) mg/dL Cholesterol 156 (<200) mg/dL HDL Cholesterol 55 (40-60) mg/dL CBC 08/07/20 Range/Units 14:28 WBC 8.7 (3.8-10.6) k/uL RBC 3.81 (3.80-5.40) m/uL Hgb 12.3 (11.4-16.0) gm/dL Hct 36.7 (34.0-46.0) % Plt Count 308 (150-450) k/uL Comprehensive Metabolic Panel 08/07/20 08/08/20 Range/Units 14:28 08:15 Sodium 140 138 (137-145) mmol/L Potassium 3.4 L 3.5 (3.5-5.1) mmol/L Chloride 95 L 89 L (98-107) mmol/L Carbon Dioxide 37 H 38 H (22-30) mmol/L BUN 18 H 18 H (7-17) mg/dL Creatinine 0.81 0.92 (0.52-1.04) mg/dL Glucose 97 112 H (74-99) mg/dL Calcium 10.4 H 10.2 (8.4-10.2) mg/dL AST 24 (14-36) U/L ALT 13 (4-34) U/L Alkaline Phosphatase 120 (38-126) U/L Total Protein 6.7 (6.3-8.2) g/dL Albumin 3.8 (3.5-5.0) g/dL Current Medications Generic Name Dose Route Start Last Admin Trade Name Freq PRN Reason Stop Dose Admin Albuterol Sulfate 2.5 mg 08/08/20 08:00 08/08/20 11:05 Albuterol Nebulized 2.5 Mg/3 Ml INHALATION Not Given RT-TID RIGOBERTO Albuterol Sulfate 2.5 mg 08/08/20 07:39 Albuterol Nebulized 2.5 Mg/3 Ml INHALATION RT-QID PRN Shortness Of Breath Aspirin 81 mg 08/08/20 09:00 08/08/20 10:11 Aspirin 81 Mg PO 81 mg DAILY RIGOBERTO Administration Budesonide/Formoterol Fumarate 2 puff 08/08/20 08:00 08/08/20 07:15 Symbicort 160-4.5 Mcg Inhaler INHALATION 2 puff RT-BID RIGOBERTO Administration Clopidogrel Bisulfate 75 mg 08/08/20 09:00 08/08/20 10:12 Clopidogrel 75 Mg Tab PO 75 mg DAILY RIGOBERTO Administration Cyclosporine 1 drops 08/08/20 09:00 08/08/20 10:12 Cyclosporine 0.05% Ophth 0.4 Ml Droperette BOTH EYES 1 drops BID RIGOBERTO Administration Furosemide 40 mg 08/07/20 18:15 08/08/20 10:11 Furosemide 10 Mg/Ml 4 Ml Vial IV 40 mg Q8H RIGOBERTO Administration Heparin Sodium (Porcine) 5,000 unit 08/08/20 08:00 08/08/20 10:11 Heparin Sodium,Porcine/Pf 5,000 Unit/0.5 Ml Syringe SQ 5,000 unit Q8HR RIGOBERTO Administration Hydrochlorothiazide 12.5 mg 08/08/20 09:00 08/08/20 10:12 Hydrochlorothiazide 12.5 Mg Cap PO 12.5 mg DAILY RIGOBERTO Administration Ipratropium [place] 0.5 mg 08/08/20 08:00 08/08/20 10:59 Ipratropium 0.5 Mg/2.5 Ml Nebu INHALATION 0.5 mg RT-QID RIGOBERTO Administration Latanoprost 1 drops 08/08/20 21:00 Latanoprost 0.005% Ophth Drops 2.5 Ml Btl BOTH EYES HS [facility] Lisinopril 7.5 mg 08/08/20 09:00 08/08/20 10:11 Lisinopril 2.5 Mg Tab PO 7.5 mg DAILY RIGOBERTO Administration Nadolol 40 mg 08/08/20 09:00 08/08/20 10:12 Nadolol 20 Mg Tab PO 40 mg DAILY RIGOBERTO Administration Pantoprazole Sodium 40 mg 08/08/20 09:00 08/08/20 10:11 Pantoprazole 40 Mg Tablet PO 40 mg DAILY RIGOBERTO Administration Pravastatin Sodium 40 mg 08/08/20 09:00 08/08/20 10:12 Pravastatin Sodium 40 Mg Tab PO 40 mg DAILY RIGOBERTO Administration Verapamil HCl 240 mg 08/08/20 09:00 08/08/20 10:12 Verapamil Sr 240 Mg Tablet.Er PO 240 mg BID RIGOBERTO Administration Intake and Output 08/07/20 08/08/20 08/08/20 22:59 06:59 14:59 Intake Total 125 Output Total 900 Balance -900 125 Intake: Oral 125 Output: Urine 900 Other: Voiding Method Toilet Toilet Weight 50.349 kg 60.419 kg 60.419 kg Patient Weight 08/09/20 06:59 Weight 60.419 kg 08/07/20 14:28 08/08/20 08:15
[2020-08-08] MEDS ORDERED: FUROSEMIDE 10 MG/ML 4 ML VIAL IV SCH (21:00)
[2020-08-08] MEDS ORDERED: LATANOPROST 0.005% OPHTH DROPS 2.5 ML BTL BOTH EYES SCH (21:00)
[2020-08-09] MEDS: HEPARIN SODIUM,PORCINE/PF 5,000 UNIT/0.5 ML SYRINGE SQ SCH ×2 (00:55→09:06)
[2020-08-09 04:34] VITALS: RESP 18
[2020-08-09 08:09] VITALS: BP 113/71; TEMP 97.7
[2020-08-09] MEDS: ALBUTEROL NEBULIZED 2.5 MG/3 ML INHALATION SCH ×2 (08:09→12:07)
[2020-08-09] MEDS: SYMBICORT 160-4.5 MCG INHALER INHALATION SCH (08:09)
[2020-08-09] MEDS: IPRATROPIUM 0.5 MG/2.5 ML NEBU INHALATION SCH ×2 (08:09→12:07)
[2020-08-09 08:44] LABS: HCT 35.9 % (34.0-46.0); HGB 12.3 gm/dL (11.4-16.0); MCH 32.7 pg (25.0-35.0); MCHC 34.4 g/dL (31.0-37.0); Platelet Count 277 k/uL (150-450); RBC 3.78 m/uL (3.80-5.40); RDW 14.4 % (11.5-15.5); WBC 6.7 k/uL (3.8-10.6)
[2020-08-09] MEDS ORDERED: FUROSEMIDE 20 MG TAB PO SCH (09:00)
[2020-08-09 09:02] LABS: Calcium 9.8 mg/dL (8.4-10.2); Magnesium 1.6 mg/dL (1.6-2.3)
[2020-08-09] MEDS: VERAPAMIL SR 240 MG TABLET.ER PO SCH (09:06)
[2020-08-09] MEDS: hydroCHLOROthiazide 12.5 MG CAP PO SCH (09:06)
[2020-08-09] MEDS: PANTOPRAZOLE 40 MG TABLET PO SCH (09:07)
[2020-08-09] MEDS: PRAVASTATIN SODIUM 40 MG TAB PO SCH (09:07)
[2020-08-09] MEDS: ASPIRIN 81 MG PO SCH (09:07)
[2020-08-09] MEDS: CLOPIDOGREL 75 MG TAB PO SCH (09:07)
[2020-08-09] MEDS: cycloSPORINE 0.05% OPHTH 0.4 ML DROPERETTE BOTH EYES SCH (09:08)
[2020-08-09] MEDS ORDERED: MAGNESIUM OXIDE 400 MG TAB PO STA (09:44)
[2020-08-09] MEDS ORDERED: POTASSIUM CHLORIDE ER 20 MEQ TAB.ER PO STA (09:45)
--- NOTE | 2020-08-09 09:59 | P.DS ---
Providers Date of admission: 08/07/20 18:01 Expected date of discharge: 08/09/20 Attending physician: Rin Zacarias DO Consults: 08/08/20 06:16 Consult Physician Routine Consulting Provider: Dominic Rowell Consult Reason/Comments: CHF Do you want consulting provider notified?: Yes, Notify in am Primary care physician: aFizan Estrella [facility] Course: Discharge Diagnosis: Exertional dyspnea with bilateral pleural effusions, concerns for new onset congestive heart failure Hypomagnesemia, resolved Hypokalemia, resolved Hypertension Atrial fibrillation Hyperlipidemia Hospital Course: Patient is a 75-year-old female with a past medical history of hypertension, hyperlipidemia, atrial fibrillation recently had a watchman's device implanted on 05/27/2020, and COPD not on home oxygen dependent. She presented to the hospital on 08/07/20 with a chief complaint of shortness of breath. Patient was seen and fully evaluated in the emergency department and was found to have an elevated d-dimer of 1.52 and an elevated proBNP of 1320. Chest x-ray completed positive for bilateral pleural effusions. CTA negative for PE again showing bilateral pleural effusions. Covid 19 PCR negative. Patient was also found to have hypokalemia with potassium of 3.4 and hypomagnesemia with magnesium of 1.3. EKG was completed showing sinus rhythm at 66 bpm with first-degree AV block with a CA of 220 ms and a prolonged QT/QTC of 488/511 ms and no T-wave or ST abnormalities. Patient was admitted under our services secondary to concerns of new onset CHF accompanied by hypokalemia and hypomagnesemia. She was seen and fully evaluated by cardiology. An echocardiogram was completed showing a normal ejection fraction greater than 55% with no significant valvular disorders. Cardiology recommending discontinuing IV Lasix and placing patient on oral Lasix 20 mg daily and to follow up outpatient with Dr. Mckee in 2 weeks. Electrolyte abnormalities were corrected. Patient is also being started on daily Mag-Ox 400 mg daily and K-Dur 10 milliequivalents daily. She given prescription and instructed she will need to follow up outpatient to have blood drawn to evaluate electrolyte levels along with renal function. Results to go to PCP and patient to follow-up with PCP for long-term monitoring and management. Physical exam: General: non toxic, no distress, appears at stated age. Derm: warm, dry. Head: atraumatic, normocephalic, symmetric. Eyes: EOMI, no lid lag, anicteric sclera. Mouth: no lip lesion, mucus membranes moist. Cardiovascular: Irregularly irregular rhythm, no murmur, gallop, or rub. Positive posterior tibial pulses bilaterally. No lower extremity edema. Lungs: Respirations even, regular, and unlabored on room air. Lungs CTA. No rhonchi or wheezes noted. No accessory muscle use. Abdominal: Abdomen soft, nontender to palpation, no guarding, no appreciable organomegaly. Ext: no gross muscle atrophy, no edema, no contractures. Neuro: CN II-XI grossly intact, no focal neuro deficits. Psych: Alert, oriented, appropriate affect. A total of 45 minutes of time were spent preparing this complex discharge summary. Patient Condition at Discharge: Stable Plan - Discharge Summary Discharge Rx Participant: No New Discharge Prescriptions: New Furosemide [Lasix] 20 mg PO DAILY 30 Days #30 tab Magnesium Oxide [Magox 400] 400 mg PO DAILY 30 Days #30 tablet Continue Pravastatin Sodium [Pravachol] 40 mg PO DAILY Hydrocodone/Acetaminophen [[place] 7.5-325] 1 tab PO QID PRN PRN Reason: Pain Baclofen [Lioresal] 10 mg PO TID PRN PRN Reason: Muscle Spasm Moexipril [Univasc] 7.5 mg PO DAILY Nadolol 40 mg PO DAILY Latanoprost [Xalatan 0.005%] 1 drop BOTH EYES HS Budesonide/Formoterol Fumarate [Symbicort 160-4.5 Mcg Inhaler] 2 puff INHALATION RT-BID Albuterol Nebulized [Ventolin Nebulized] 2.5 mg INHALATION RT-TID Albuterol Inhaler [Ventolin Hfa Inhaler] 1 puff INHALATION RT-QID PRN PRN Reason: Shortness Of Breath Denosumab [Prolia] 60 mg SQ Q180D Diclofenac Sodium [Voltaren Gel] 2 gram TOPICAL BID PRN PRN Reason: Pain Omeprazole 20 mg PO DAILY cycloSPORINE 0.05% OPHTH SOLN [Restasis] 1 drop BOTH EYES BID hydroCHLOROthiazide [Hydrodiuril] 12.5 mg PO DAILY Umeclidinium [place] [Incruse Ellipta] 1 puff INHALATION RT-DAILY Clopidogrel Bisulfate [Plavix] 75 mg PO DAILY Aspirin EC [Ecotrin Low Dose] 81 mg PO DAILY Verapamil HCl [Verapamil ER] 240 mg PO BID Discharge Medication List Baclofen [Lioresal] 10 mg PO TID PRN 07/20/15 [History] Hydrocodone/Acetaminophen [[place] 7.5-325] 1 tab PO QID PRN 07/20/15 [History] Moexipril [Univasc] 7.5 mg PO DAILY 07/20/15 [History] Pravastatin Sodium [Pravachol] 40 mg PO DAILY 07/20/15 [History] Latanoprost [Xalatan 0.005%] 1 drop BOTH EYES HS 10/15/16 [History] Nadolol 40 mg PO DAILY 10/15/16 [History] Albuterol Nebulized [Ventolin Nebulized] 2.5 mg INHALATION RT-TID 08/11/17 [History] Budesonide/Formoterol Fumarate [Symbicort 160-4.5 Mcg Inhaler] 2 puff INHALATION RT-BID 08/11/17 [History] Albuterol Inhaler [Ventolin Hfa Inhaler] 1 puff INHALATION RT-QID PRN 12/03/19 [History] Denosumab [Prolia] 60 mg SQ Q180D 04/06/20 [History] Diclofenac Sodium [Voltaren Gel] 2 gram TOPICAL BID PRN 04/06/20 [History] Omeprazole 20 mg PO DAILY 06/25/20 [History] Aspirin EC [Ecotrin Low Dose] 81 mg PO DAILY 08/07/20 [History] Clopidogrel Bisulfate [Plavix] 75 mg PO DAILY 08/07/20 [History] Umeclidinium [place] [Incruse Ellipta] 1 puff INHALATION RT-DAILY 08/07/20 [History] Verapamil HCl [Verapamil ER] 240 mg PO BID 08/07/20 [History] cycloSPORINE 0.05% OPHTH SOLN [Restasis] 1 drop BOTH EYES BID 08/07/20 [History] hydroCHLOROthiazide [Hydrodiuril] 12.5 mg PO DAILY 08/07/20 [History] Furosemide [Lasix] 20 mg PO DAILY 30 Days #30 tab 08/09/20 [Rx] Magnesium Oxide [Magox 400] 400 mg PO DAILY 30 Days #30 tablet 08/09/20 [Rx] Follow up Appointment(s)/Referral(s): [facility], [NON-STAFF] - Faizan Estrella MD [Primary Care Provider] - 1-2 days Tyler Mckee MD [STAFF PHYSICIAN] - 2 Weeks Ambulatory/Diagnostic Orders: Basic Metabolic Panel [LAB.AMB] Time Frame: 3 Days, Location: None Selected Magnesium [LAB.AMB] Time Frame: 3 Days, Location: None Selected Activity/Diet/Wound Care/Special Instructions: Activity: As tolerated Diet: Heart Healthy diet Special Instructions: Please follow up as directed with both your PCP as well as Cardiology. It is also important to check your electrolyte levels in 3-4 days. You are being started on Lasix, and your magnesium was initially low when you came to the hospital. We replaced your magnesium and are starting you on a daily magnesium supplement. Please follow up and have your blood work drawn as suggested. You can have this completed at your primary care physicians office or our out patient laboratory. Thank you for allowing us to participate in your care, it was truly a pleasure having you for a patient!!!! Discharge Disposition: HOME WITH HOME HEALTH SERVICES
[2020-08-09 12:17] VITALS: PULSE 88
--- NOTE | 2020-08-09 12:39 | P.PN ---
Subjective Progress Note Date: 08/09/20 HISTORY OF PRESENT ILLNESS: 08/08/2020 This is a 75 year old female with a past medical history significant for age of fibrillation, COPD, hypertension, hyperlipidemia, and previous GI bleed. Patient also has a history of a watchman procedure performed at [facility] on 05/27/[address] Concepcion. Patient follows in the office with Dr. Mckee. We have been asked to see the patient in consultation for CHF. Patient examined at the bedside. Patient states she has been feeling short of breath for the past 3 days. She reports the shortness of breath is only with exertion and resolves with rest. She is unsure if she had shortness of breath while laying flat. She reports she increased swelling to her lower extremities. Patient was hospitalized in June 2020 for possible GI bleed. Patient states her HCTZ was discontinued at that time and she has had some problems with swelling to her legs since that time. She reports this was recently resumed however. The patient was started on IV lasix and admitted to the hospital. She states her dyspnea has resolved and she feels back to her baseline. EKG reveals sinus mechanism with no signs of acute ischemia Chest xray and as appropriate failure with pleural effusions. Chest CTA: No evidence of pulmonary embolus and. There is Medically with pleural effusions and basilar atelectasis. Small pericardial effusion. Laboratory data: WBC 8.7. Hemoglobin 12.3. Platelet count 308. D-dimer 1.52. Sodium 130. Potassium 3.5. BUN 18. Creatinine 0.92. Lactic acid 1.1. Troponin negative 1. BNP 1320. Current home cardiac medications include hydrochlorothiazide 12.5mg daily, verapamil 240 mg twice a day, pravastatin 40 mg daily, Nadolol 40mg daily, Moexipril 7.5mg daily, Plavix 75 mg daily, and aspirin 81 mg daily Echocardiogram obtained reveals ejection fraction greater than 55%, mild mitral regurgitation, mild tricuspid regurgitation, and small generalized Larissa effusion. 08/09/2020 Patient examined this morning at the bedside. Patient denies chest pain or pressure. Denies shortness of breath. She has been up ambulating to the bathroom with no shortness of breath. Vital signs are stable. PHYSICAL EXAM: VITAL SIGNS: Reviewed. GENERAL: Well-developed in no acute distress. HEENT: Head is normocephalic. Pupils are equal, round. Sclerae anicteric. Mucous membranes of the mouth are moist. Neck supple. No JVD or thyromegaly LUNGS: Respirations even and unlabored. Lungs diminished bilaterally. HEART: Regular rate and rhythm. S1 and S2 heard. EXTREMITIES: Normal range of motion. No clubbing or cyanosis. Peripheral pulses intact. No lower extremity edema ASSESSMENT: Exertional dyspnea New onset diastolic congestive heart failure Paroxysmal atrial fibrillation with recent watchman procedure at [place], 05/27/2020 Hypertension Hyperlipidemia COPD History of GI bleed GERD PLAN: Continue current cardiac medications Patient is stable for discharge home today from a cardiac standpoint She is to follow up outpatient with Dr. Mckee Nurse practitioner note has been reviewed by physician. Signing provider agrees with the documented findings, assessment, and plan of care. Objective - Vital Signs Vital signs: Vital Signs Temp 97.7 F 08/09/20 08:00 Pulse 88 08/09/20 12:16 Resp 18 08/09/20 08:00 BP 113/71 08/09/20 08:00 Pulse Ox 95 08/09/20 08:00 Intake & Output 08/08/20 08/09/20 08/09/20 18:59 06:59 18:59 Intake Total 483 240 Output Total 150 325 Balance 333 -85 Weight 60.419 kg 58.5 kg Intake: Oral 483 240 Output: Urine 150 325 Other: Voiding Method Toilet Toilet Toilet # Voids 2 - Labs CBC & Chem 7: 08/09/20 08:28 08/09/20 08:28 Labs: Abnormal Lab Results - Last 24 Hours (Table) 08/09/20 08/09/20 Range/Units 08:28 08:28 RBC 3.78 L (3.80-5.40) m/uL Sodium 135 L (137-145) mmol/L Potassium 3.0 L (3.5-5.1) mmol/L Chloride 87 L (98-107) mmol/L Carbon Dioxide 41 H* (22-30) mmol/L BUN 21 H (7-17) mg/dL Creatinine 1.34 H (0.52-1.04) mg/dL Glucose 109 H (74-99) mg/dL
== END 2020-08-09 12:47 | disposition home health service (06) | DRG 291 ==
LOC: EC 13:43 → 3SCARD 18:01
PROVIDERS: ADMIT Internal Medicine; ATTEND Internal Medicine
DX: I11.0 Hypertensive heart disease with heart failure (principal); I50.31 Acute diastolic (congestive) heart failure; I31.3 Pericardial effusion (noninflammatory); J98.11 Atelectasis; I44.0 Atrioventricular block, first degree; I48.0 Paroxysmal atrial fibrillation; J44.9 Chronic obstructive pulmonary disease, unspecified; K21.9 Gastro-esophageal reflux disease without esophagitis; Z20.822 Contact with and (suspected) exposure to COVID-19; Z79.02 Long term (current) use of antithrombotics/antiplatelets; Z79.51 Long term (current) use of inhaled steroids; Z79.82 Long term (current) use of aspirin; Z79.899 Other long term (current) drug therapy; H91.90 Unspecified hearing loss, unspecified ear; E78.5 Hyperlipidemia, unspecified; E83.42 Hypomagnesemia; E87.6 Hypokalemia; Z82.5 Family history of asthma and other chronic lower respiratory diseases; Z87.11 Personal history of peptic ulcer disease; Z86.010 Personal history of colon polyps; H40.9 Unspecified glaucoma; Z90.710 Acquired absence of both cervix and uterus; Z95.818 Presence of other cardiac implants and grafts; Z90.89 Acquired absence of other organs; Z98.51 Tubal ligation status; Z98.42 Cataract extraction status, left eye; Z98.41 Cataract extraction status, right eye; Z82.61 Family history of arthritis; Z83.79 Family history of other diseases of the digestive system; Z97.4 Presence of external hearing-aid; I34.0 Nonrheumatic mitral (valve) insufficiency; Z77.22 Contact with and (suspected) exposure to environmental tobacco smoke (acute) (chronic); R79.1 Abnormal coagulation profile; Z98.890 Other specified postprocedural states
CPT/HCPCS: 36415; 71045; 71275; 80048; 80053; 80061; 83605; 83735; 83880; 84145; 84443; 84484; 85025; 85027; 85379; 85610; 85730; 86140; 87635; 93005; 93306; 94640; 94760; 96374; 99285

== ENCOUNTER 2020-08-31 17:19 | Emergency (ER) | payer MEDICARE, OTHER ==
[2020-08-31 17:43] VITALS: RESP 18
--- NOTE | 2020-08-31 19:18 | XR ---
EXAMINATION TYPE: XR scapula LT DATE OF EXAM: 08/31/2020 COMPARISON: NONE HISTORY: Arm pain TECHNIQUE: 2 views FINDINGS: I see no fracture nor dislocation. Scapula is intact. There are no pathologic calcification s. IMPRESSION: Negative left scapula exam.
--- NOTE | 2020-08-31 19:23 | ED ---
General Adult HPI - General Chief complaint: Extremity Problem,Nontraumatic Stated complaint: L Shoulder pain/down the arm pain Time Seen by Provider: 08/31/20 18:52 Source: patient, family, RN notes reviewed Mode of arrival: ambulatory - History of Present Illness Initial comments: Patient is a 75-year-old female that presents to the emergency Department with her [id number] complaining of left shoulder blade pain that radiates down to her left arm. She notes that she does have point tenderness on the medial aspect of the scapula. She states that she did take a muscle relaxer this morning but did not take anymore after that. She notes that nothing really makes the pain worse or better. She notes that sitting up in bed she was in no real discomfort or pain. She does have a complicated medical history. She wanted to come emergency room just to make sure there was no cardiac issues. She denied any chest pain shortness of breath headache nausea vomiting diarrhea constipation fever fatigue chills. - Related Data Home Medications Medication Instructions Recorded Confirmed Baclofen [Lioresal] 10 mg PO TID PRN 07/20/15 08/31/20 Hydrocodone/Acetaminophen [[place] 1 tab PO QID PRN 07/20/15 08/31/20 7.5-325] Moexipril [Univasc] 7.5 mg PO DAILY 07/20/15 08/31/20 Pravastatin Sodium [Pravachol] 40 mg PO DAILY 07/20/15 08/31/20 Latanoprost [Xalatan 0.005%] 1 drop BOTH EYES HS 10/15/16 08/31/20 Nadolol 40 mg PO DAILY 10/15/16 08/31/20 Albuterol Nebulized [Ventolin 2.5 mg INHALATION RT-TID PRN 08/11/17 08/31/20 Nebulized] Budesonide/Formoterol Fumarate 2 puff INHALATION RT-BID 08/11/17 08/31/20 [Symbicort 160-4.5 Mcg Inhaler] Albuterol Inhaler [Ventolin Hfa 1 puff INHALATION RT-QID PRN 12/03/19 08/31/20 Inhaler] Denosumab [Prolia] 60 mg SQ Q180D 04/06/20 08/31/20 Diclofenac Sodium [Voltaren Gel] 2 gram TOPICAL BID PRN 04/06/20 08/31/20 Omeprazole 20 mg PO DAILY 06/25/20 08/31/20 Aspirin EC [Ecotrin Low Dose] 81 mg PO DAILY 08/07/20 08/31/20 Clopidogrel Bisulfate [Plavix] 75 mg PO DAILY 08/07/20 08/31/20 Umeclidinium [place] [Incruse 1 puff INHALATION RT-DAILY 08/07/20 08/31/20 Ellipta] Verapamil HCl [Verapamil ER] 240 mg PO BID 08/07/20 08/31/20 cycloSPORINE 0.05% OPHTH SOLN 1 drop BOTH EYES BID 08/07/20 08/31/20 [Restasis] hydroCHLOROthiazide [Hydrodiuril] 12.5 mg PO DAILY 08/07/20 08/31/20 Previous Rx's Medication Instructions Recorded Furosemide [Lasix] 20 mg PO DAILY 30 Days #30 tab 08/09/20 Magnesium Oxide [Magox 400] 400 mg PO DAILY 30 Days #30 tablet 08/09/20 Potassium Chloride ER [K-[place] 10] 10 meq PO DAILY 30 Days #30 tab 08/09/20 Allergies Allergy/AdvReac Type Severity Reaction Status Date / Time No Known Allergies Allergy Verified 08/31/20 19:10 Review of Systems ROS Statement: Those systems with pertinent positive or pertinent negative responses have been documented in the HPI. ROS Other: All systems not noted in ROS Statement are negative. Past Medical History Past Medical History: Atrial Fibrillation, Asthma, COPD, GERD/Reflux, GI Bleed, Hyperlipidemia, Hypertension, Osteoarthritis (OA), Pneumonia, Vascular Disorder Additional Past Medical History / Comment(s): Pt is very hard of hearing, she wears a hearing aide and normally reads lips-she reads and writes. Other Hx: Bronchitis, gastric ulcer, diverticular disease, lower GI bleed/AV malformation with ablation, benign colon polyp, borderline hyperlipidemia, arthritis mostly in back, slight bilateral glaucoma, varicosities. History of Any Multi-Drug Resistant Organisms: None Reported Past Surgical History: Adenoidectomy, Appendectomy, Heart Catheterization, Hysterectomy, Tonsillectomy, Tubal Ligation Additional Past Surgical History / Comment(s): Colonoscopy/benign polypectomy/AV malformation ablation, bilateral cataract removals, watchmen procedure Past Anesthesia/Blood Transfusion Reactions: No Reported Reaction Additional Past Anesthesia/Blood Transfusion Reaction / Comment(s): never recieved blood before. Past Psychological History: No Psychological Hx Reported Smoking Status: Never smoker, Second hand smoke exposure Past Alcohol Use History: None Reported Past Drug Use History: None Reported - Past Family History Father Family Medical History: COPD Additional Family Medical History / Comment(s): EMPHYSEMA Mother Family Medical History: Osteoarthritis (OA) Additional Family Medical History / Comment(s): EMPHYSEMA, BOWEL OBSTRUCTION/COLOSTOMY General Exam Limitations: physical limitation (Patient hard of hearing) General appearance: alert, in no apparent distress Head exam: Present: atraumatic, normocephalic, normal inspection Eye exam: Present: normal appearance, PERRL, EOMI. Absent: scleral icterus, conjunctival injection, periorbital swelling Neck exam: Present: normal inspection Respiratory exam: Present: normal lung sounds bilaterally. Absent: respiratory distress, wheezes, rales, rhonchi, stridor Cardiovascular Exam: Present: regular rate, normal rhythm, normal heart sounds. Absent: systolic murmur, diastolic murmur, rubs, gallop, clicks GI/Abdominal exam: Present: soft, normal bowel sounds. Absent: distended, tenderness, guarding, rebound, rigid Extremities exam: Present: normal inspection, full ROM, normal capillary refill. Absent: tenderness, pedal edema, joint swelling, calf tenderness Back exam: Present: normal inspection, tenderness (Over the superior medial aspect of the scapula point tenderness) Neurological exam: Present: alert, oriented X3, CN II-XII intact Psychiatric exam: Present: normal affect, normal mood Skin exam: Present: warm, dry, intact, normal color. Absent: rash Course Vital Signs 08/31/20 17:40 Temperature 97.9 F Pulse Rate 68 Respiratory 18 Rate Blood Pressure 142/73 O2 Sat by Pulse 95 Oximetry Medical Decision Making - Medical Decision Making 75-year-old female complaining of left shoulder pain that radiates on the left arm. Labs, EKG, left scapula x-ray ordered. Labs unremarkable. Imaging negative for any acute fractures. Case discussed with Dr. Keys, patient can discharge home with follow-up primary care. - Lab Data Result diagrams: 08/31/20 19:29 08/31/20 19:29 Lab Results 08/31/20 08/31/20 08/31/20 Range/Units 19:29 19:29 19:29 WBC 8.3 (3.8-10.6) k/uL RBC 4.16 (3.80-5.40) m/uL Hgb 13.1 (11.4-16.0) gm/dL Hct 39.8 (34.0-46.0) % MCV 95.6 (80.0-100.0) fL MCH 31.5 (25.0-35.0) pg MCHC 32.9 (31.0-37.0) g/dL RDW 14.6 (11.5-15.5) % Plt Count 247 (150-450) k/uL MPV 8.2 Neutrophils % 62 % Lymphocytes % 22 % Monocytes % 7 % Eosinophils % 6 % Basophils % 1 % Neutrophils # 5.1 (1.3-7.7) k/uL Lymphocytes # 1.9 (1.0-4.8) k/uL Monocytes # 0.6 (0-1.0) k/uL Eosinophils # 0.5 (0-0.7) k/uL Basophils # 0.1 (0-0.2) k/uL PT 10.0 (9.0-12.0) sec INR 0.9 (<1.2) APTT 20.2 L (22.0-30.0) sec Sodium 141 (137-145) mmol/L Potassium 3.5 (3.5-5.1) mmol/L Chloride 98 (98-107) mmol/L Carbon Dioxide 38 H (22-30) mmol/L Anion Gap 5 mmol/L BUN 25 H (7-17) mg/dL Creatinine 1.04 (0.52-1.04) mg/dL Est GFR (CKD-EPI)AfAm 61 (>60 ml/min/1.73 sqM) Est GFR (CKD-EPI)NonAf 53 (>60 ml/min/1.73 sqM) Glucose 109 H (74-99) mg/dL Calcium 10.8 H (8.4-10.2) mg/dL Magnesium 1.7 (1.6-2.3) mg/dL Total Bilirubin 0.5 (0.2-1.3) mg/dL AST 33 (14-36) U/L ALT 18 (4-34) U/L Alkaline Phosphatase 132 H (38-126) U/L Troponin I (0.000-0.034) ng/mL Total Protein 7.2 (6.3-8.2) g/dL Albumin 4.1 (3.5-5.0) g/dL 08/31/20 Range/Units 19:29 WBC (3.8-10.6) k/uL RBC (3.80-5.40) m/uL Hgb (11.4-16.0) gm/dL Hct (34.0-46.0) % MCV (80.0-100.0) fL MCH (25.0-35.0) pg MCHC (31.0-37.0) g/dL RDW (11.5-15.5) % Plt Count (150-450) k/uL MPV Neutrophils % % Lymphocytes % % Monocytes % % Eosinophils % % Basophils % % Neutrophils # (1.3-7.7) k/uL Lymphocytes # (1.0-4.8) k/uL Monocytes # (0-1.0) k/uL Eosinophils # (0-0.7) k/uL Basophils # (0-0.2) k/uL PT (9.0-12.0) sec INR (<1.2) APTT (22.0-30.0) sec Sodium (137-145) mmol/L Potassium (3.5-5.1) mmol/L Chloride (98-107) mmol/L Carbon Dioxide (22-30) mmol/L Anion Gap mmol/L BUN (7-17) mg/dL Creatinine (0.52-1.04) mg/dL Est GFR (CKD-EPI)AfAm (>60 ml/min/1.73 sqM) Est GFR (CKD-EPI)NonAf (>60 ml/min/1.73 sqM) Glucose (74-99) mg/dL Calcium (8.4-10.2) mg/dL Magnesium (1.6-2.3) mg/dL Total Bilirubin (0.2-1.3) mg/dL AST (14-36) U/L ALT (4-34) U/L Alkaline Phosphatase (38-126) U/L Troponin I <0.012 (0.000-0.034) ng/mL Total Protein (6.3-8.2) g/dL Albumin (3.5-5.0) g/dL - EKG Data -: EKG Interpreted by Me EKG shows normal: sinus rhythm Rate: normal EKG Comments: Ventricular rate 68 bpm, DC interval 234 ms, QRS duration 88 ms, QT/QTc 462/491 ms, PRT axes 78/67/46. Sinus rhythm with first-degree AV block, prolonged QT, abnormal ECG. - Radiology Data Radiology results: report reviewed, image reviewed Left scapula x-ray: Negative left scapula exam. Disposition Clinical Impression: Muscle tightness, Upper back pain on left side Disposition: HOME SELF-CARE Condition: Stable Instructions (If sedation given, give patient instructions): Muscle Spasm (ED) Additional Instructions: Please return to the Emergency Department if symptoms worsen or any other concerns. Follow-up with primary care in 3-5 days. Take muscle relaxers as prescribed 3 times a day. Increase fluids. Can try massage, heating pad, ice to help alleviate symptoms. Is patient prescribed a controlled substance at d/c from ED?: No Referrals: Danielle Monzon MD [Primary Care Provider] - 1-2 days Time of Disposition: 20:17
[2020-08-31 19:39] LABS: Basophils # (A) 0.1 k/uL (0-0.2); Basophils % (A) 1 %; Eosinophils # (A) 0.5 k/uL (0-0.7); Eosinophils % (A) 6 %; HCT 39.8 % (34.0-46.0); HGB 13.1 gm/dL (11.4-16.0); Lymphocytes # (A) 1.9 k/uL (1.0-4.8); Lymphocytes % (A) 22 %; MCH 31.5 pg (25.0-35.0); MCHC 32.9 g/dL (31.0-37.0); MCV 95.6 fL (80.0-100.0); Mean Platelet Volume 8.2; Monocytes # (A) 0.6 k/uL (0-1.0); Monocytes % (A) 7 %; Neutrophils # (A) 5.1 k/uL (1.3-7.7); Neutrophils % (A) 62 %; Platelet Count 247 k/uL (150-450); RBC 4.16 m/uL (3.80-5.40); RDW 14.6 % (11.5-15.5); WBC 8.3 k/uL (3.8-10.6)
[2020-08-31 19:46] LABS: Potassium 3.5 mmol/L (3.5-5.1)
[2020-08-31 19:47] LABS: Albumin 4.1 g/dL (3.5-5.0); Calcium 10.8 mg/dL (8.4-10.2); Magnesium 1.7 mg/dL (1.6-2.3); Total Bilirubin 0.5 mg/dL (0.2-1.3); Total Protein 7.2 g/dL (6.3-8.2)
[2020-08-31 20:03] LABS: INR 0.9 (<1.2)
[2020-08-31 20:04] LABS: Partial Thromboplastin Time 20.2 sec (22.0-30.0)
[2020-08-31 20:31] VITALS: BP 133/78; PULSE 72; TEMP 97.1
== END 2020-08-31 20:31 | disposition home or self-care (01) ==
LOC: EC 17:19
DX: M54.89 Other dorsalgia (principal); M62.9 Disorder of muscle, unspecified; E78.5 Hyperlipidemia, unspecified; I10 Essential (primary) hypertension; I48.91 Unspecified atrial fibrillation; J44.9 Chronic obstructive pulmonary disease, unspecified; K21.9 Gastro-esophageal reflux disease without esophagitis; M19.90 Unspecified osteoarthritis, unspecified site; Z79.82 Long term (current) use of aspirin; Z87.11 Personal history of peptic ulcer disease; Z87.19 Personal history of other diseases of the digestive system; Z90.49 Acquired absence of other specified parts of digestive tract; Z95.5 Presence of coronary angioplasty implant and graft; Z90.710 Acquired absence of both cervix and uterus; Z98.51 Tubal ligation status; Z90.09 Acquired absence of other part of head and neck
CPT/HCPCS: 36415; 80053; 83735; 84484; 85025; 85610; 85730; 93005; 99284

== ENCOUNTER 2020-10-20 | Observation (INO) | payer MEDICARE, OTHER | END 2020-10-22 12:30 | disposition home or self-care (01) | PROVIDERS: ADMIT Internal Medicine | CPT/HCPCS: 96376 ×3; 96366 ×4; 96365; 96375; 99291; 36415; 94640 ×5; 93005; 93306; 85379; 83880; 80053; 82550; 83605; 83735; 84484; 85025 ×2; 85610; 85730 ×3; 71046; 71275; G0378 ×3; J2930 ×3; J1644 ×3; Q9967 ==

== ENCOUNTER 2020-11-12 15:04 | Inpatient (IN) | payer MEDICARE, OTHER ==
[2020-11-12] MEDS ORDERED: SODIUM CHLORIDE 0.9% 1,000 ML IV STA ×2 (15:37→17:15)
[2020-11-12 15:46] LABS: Basophils % (A) 0 %; Eosinophils # (A) 0.2 k/uL (0-0.7); Eosinophils % (A) 2 %; HCT 21.4 % (34.0-46.0); Hypochromasia Marked; Lymphocytes # (A) 1.2 k/uL (1.0-4.8); Lymphocytes % (A) 13 %; MCH 30.8 pg (25.0-35.0); MCHC 30.5 g/dL (31.0-37.0); Macrocytosis Slight; Mean Platelet Volume 7.7; Monocytes # (A) 0.5 k/uL (0-1.0); Monocytes % (A) 5 %; Neutrophils # (A) 7.6 k/uL (1.3-7.7); Neutrophils % (A) 78 %; Platelet Count 347 k/uL (150-450); Poikilocytosis Slight; RBC 2.12 m/uL (3.80-5.40); RDW 15.5 % (11.5-15.5); WBC 9.7 k/uL (3.8-10.6)
[2020-11-12 15:56] LABS: Band Neutrophils % 4 %; Neutrophils % (M) 61 %; Nucleated Red Blood Cells 0 /100 WBC (0-0); Total Cells Counted 100
[2020-11-12 15:59] LABS: HGB 6.5 gm/dL (11.4-16.0)
[2020-11-12 16:11] LABS: Albumin 3.6 g/dL (3.5-5.0); Calcium 8.9 mg/dL (8.4-10.2); Magnesium 2.4 mg/dL (1.6-2.3); Potassium 3.5 mmol/L (3.5-5.1); Total Bilirubin 0.3 mg/dL (0.2-1.3); Total Protein 5.9 g/dL (6.3-8.2)
--- NOTE | 2020-11-12 16:16 | ED ---
General Adult HPI - General Chief complaint: Syncope Stated complaint: syncope, bradycardia symptoms Source: EMS Mode of arrival: EMS Limitations: no limitations - History of Present Illness Initial comments: Nancy 75-year-old female is brought to the ER today for evaluation after syncopal episode. Patient has a significant past medical history most concerning for admission last month for COPD exacerbation at which time a pulmonary embolism was identified. Patient was prescribed L Bibi, she had previously been on Plavix for A. fib with a watchman procedure. Patient has been taking both L Bibi and Plavix. She states that since her previous hospitalization she's had lack stools daily the patient states that she believed this was a side effect of the medication was not concerned by it. She does note that she's been very tired she's been sleeping more lately. Daughter bedside reports her mother's been forgetful and very tired. She actually bit her a primary care appointment to evaluate for possible onset of dementia due to her fatigue and memory problems. Today the patient was out to lunch with her granddaughter, she was feeling very lightheaded and unwell. They decided to leave and when the patient stood up her vision turned black and she believes she lost consciousness however her granddaughter held her up she did not fall. She did not hit her head. - Related Data Home Medications Medication Instructions Recorded Confirmed Baclofen [Lioresal] 10 mg PO TID PRN 07/20/15 11/12/20 Moexipril [Univasc] 7.5 mg PO DAILY 07/20/15 11/12/20 Pravastatin Sodium [Pravachol] 40 mg PO DAILY 07/20/15 11/12/20 Latanoprost [Xalatan 0.005%] 2 drop BOTH EYES HS 10/15/16 11/12/20 Nadolol 40 mg PO DAILY 10/15/16 11/12/20 Albuterol Nebulized [Ventolin 2.5 mg INHALATION RT-TID PRN 08/11/17 11/12/20 Nebulized] Budesonide/Formoterol Fumarate 2 puff INHALATION RT-BID 08/11/17 11/12/20 [Symbicort 160-4.5 Mcg Inhaler] Albuterol Inhaler [Ventolin Hfa 1 puff INHALATION RT-QID PRN 12/03/19 11/12/20 Inhaler] Denosumab [Prolia] 60 mg SQ Q180D 04/06/20 11/12/20 Diclofenac Sodium [Voltaren Gel] 2 gram TOPICAL BID PRN 04/06/20 11/12/20 Omeprazole 20 mg PO DAILY 06/25/20 11/12/20 Aspirin EC [Ecotrin Low Dose] 81 mg PO DAILY 08/07/20 11/12/20 Clopidogrel Bisulfate [Plavix] 75 mg PO DAILY 08/07/20 11/12/20 Umeclidinium [place] [Incruse 1 puff INHALATION RT-DAILY 08/07/20 11/12/20 Ellipta] Verapamil HCl [Verapamil ER] 240 mg PO DAILY 08/07/20 11/12/20 cycloSPORINE 0.05% OPHTH SOLN 1 drop BOTH EYES BID 08/07/20 11/12/20 [Restasis] hydroCHLOROthiazide [Hydrodiuril] 12.5 mg PO DAILY 08/07/20 11/12/20 Apixaban [Eliquis] 5 mg PO BID 11/12/20 11/12/20 HYDROcodone/APAP 10-325MG [[place] 1 tab PO BID PRN 11/12/20 11/12/20 10-325] Previous Rx's Medication Instructions Recorded Furosemide [Lasix] 20 mg PO DAILY 30 Days #30 tab 08/09/20 Magnesium Oxide [Magox 400] 400 mg PO DAILY 30 Days #30 tablet 08/09/20 Allergies Allergy/AdvReac Type Severity Reaction Status Date / Time No Known Allergies Allergy Verified 11/12/20 19:05 Review of Systems ROS Statement: Those systems with pertinent positive or pertinent negative responses have been documented in the HPI. ROS Other: All systems not noted in ROS Statement are negative. Past Medical History Past Medical History: Atrial Fibrillation, Asthma, COPD, GERD/Reflux, GI Bleed, Hyperlipidemia, Hypertension, Osteoarthritis (OA), Pneumonia, Vascular Disorder Additional Past Medical History / Comment(s): TELIDA, Bronchitis, gastric ulcer, diverticular disease, lower GI bleed/AV malformation with ablation, benign colon polyp, borderline hyperlipidemia, arthritis mostly in back, slight bilateral glaucoma, varicosities. History of Any Multi-Drug Resistant Organisms: None Reported Past Surgical History: Adenoidectomy, Appendectomy, Heart Catheterization, Hysterectomy, Tonsillectomy, Tubal Ligation Additional Past Surgical History / Comment(s): Colonoscopy/benign polypectomy/AV malformation ablation, bilateral cataract removals, watchmen procedure Past Anesthesia/Blood Transfusion Reactions: No Reported Reaction Additional Past Anesthesia/Blood Transfusion Reaction / Comment(s): never recieved blood before. Past Psychological History: No Psychological Hx Reported Smoking Status: Never smoker, Second hand smoke exposure Past Alcohol Use History: None Reported Past Drug Use History: None Reported - Past Family History Father Family Medical History: COPD Additional Family Medical History / Comment(s): EMPHYSEMA Mother Family Medical History: Osteoarthritis (OA) Additional Family Medical History / Comment(s): EMPHYSEMA, BOWEL OBSTRUCTION/COLOSTOMY General Exam - General Exam Comments Initial Comments: Physical Exam GENERAL: Elderly, pale HENT: Normocephalic, Atraumatic. EYES: PERRL, EOMI Conjunctival pallor PULMONARY: Unlabored respirations. No audible rales rhonchi or wheezing was noted. CARDIOVASCULAR: There is a regular rate and rhythm without any murmurs gallops or rubs. ABDOMEN: Soft and nontender with normal bowel sounds. SKIN: Skin is clear with no lesions or rashes and otherwise unremarkable. : Deferred NEUROLOGIC: Patient is alert and oriented x3. Moving all extremities spontaneously MUSCULOSKELETAL: Normal extremities with adequate strength and full range of motion. No lower extremity swelling or edema. No calf tenderness. PSYCHIATRIC: Normal psychiatric evaluation. Limitations: no limitations Course Vital Signs 11/12/20 11/12/20 11/12/20 15:08 15:15 15:35 Temperature 97.7 F Pulse Rate 49 L 51 L 49 L Pulse Rate [ Childcare Administrator ] Respiratory 14 16 16 Rate Blood Pressure 64/39 67/54 68/44 Blood Pressure [Left Calf] O2 Sat by Pulse 100 98 100 Oximetry 11/12/20 11/12/20 11/12/20 15:45 15:46 16:00 Temperature Pulse Rate 50 L Pulse Rate [ 51 L Childcare Administrator ] Respiratory 16 Rate Blood Pressure 71/44 74/44 Blood Pressure [Left Calf] O2 Sat by Pulse 99 Oximetry 11/12/20 11/12/20 11/12/20 16:15 16:45 17:10 Temperature 97.9 F Pulse Rate 49 L 50 L 50 L Pulse Rate [ Childcare Administrator ] Respiratory 16 16 16 Rate Blood Pressure 70/47 75/48 95/31 Blood Pressure [Left Calf] O2 Sat by Pulse 99 100 Oximetry 11/12/20 11/12/20 11/12/20 18:20 18:30 19:00 Temperature 97.9 F 97.5 F L 97.0 F L Pulse Rate 50 L 50 L 49 L Pulse Rate [ Childcare Administrator ] Respiratory 16 18 14 Rate Blood Pressure 71/46 71/52 66/52 Blood Pressure [Left Calf] O2 Sat by Pulse 99 100 100 Oximetry 11/12/20 11/12/20 11/12/20 19:16 19:18 19:30 Temperature 97.9 F 97.1 F L Pulse Rate 50 L 50 L Pulse Rate [ 51 L Childcare Administrator ] Respiratory 18 14 16 Rate Blood Pressure 67/49 76/63 Blood Pressure 91/57 [Left Calf] O2 Sat by Pulse 98 100 100 Oximetry 11/12/20 11/12/20 11/12/20 20:00 20:23 20:30 Temperature 97.2 F L 97.3 F L Pulse Rate 49 L 52 L 50 L Pulse Rate [ Childcare Administrator ] Respiratory 16 16 16 Rate Blood Pressure 94/79 102/81 98/61 Blood Pressure [Left Calf] O2 Sat by Pulse 99 99 99 Oximetry Medical Decision Making - Medical Decision Making She was seen and evaluated history is obtained from patient and daughter bedside Signs were reviewed, patient is bradycardic which she was noted to be vanna ycardic during previous hospitalization. She is hypotensive but awake alert oriented and asymptomatic. Pleasant 75-year-old female is been feeling fatigued all month but had a syncopal episode today. Hx obtained patient has acute anemia with hemoglobin of only 6.5 a drop from 12.923 days ago. Patient has been having dark stools. She's not had any hematemesis but bleeding noses or bright red blood per rectum. She will consent to blood transfusion Patient care was discussed with Dr. Sigala of the [facility], patient was admitted to this group earlier in the month when she was diagnosed with pulmonary embolism. He accepts the admission. He came to bedside and evaluated the patient, she was complaining of mild low back pain and he ordered [place]. I receiving some IV fluids, After receiving [place] patient blood pressure decreased. She remained asymptomatic but had a low back. She is placed in Trendelenburg position and blood transfusion was initiated. Over considering th e patient is awake alert oriented with no complaints at all feel she requires a central line or pressors. I do feel she will improve his blood transfusions. After receiving blood patient's blood pressure did improve, she was determined be stable for transfer to floor. - Lab Data Result diagrams: 11/12/20 15:39 11/12/20 15:39 Lab Results 11/12/20 11/12/20 11/12/20 Range/Units 15:39 15:39 15:39 WBC 9.7 (3.8-10.6) k/uL RBC 2.12 L (3.80-5.40) m/uL Hgb 6.5 L* D (11.4-16.0) gm/dL Hct 21.4 L (34.0-46.0) % MCV 101.0 H D (80.0-100.0) fL MCH 30.8 (25.0-35.0) pg MCHC 30.5 L (31.0-37.0) g/dL RDW 15.5 (11.5-15.5) % Plt Count 347 (150-450) k/uL MPV 7.7 Neutrophils % 78 % Neutrophils % (Manual) 61 % Band Neuts % (Manual) 4 % Lymphocytes % 13 % Lymphocytes % (Manual) 24 % Monocytes % 5 % Monocytes % (Manual) 7 % Eosinophils % 2 % Eosinophils % (Manual) 4 % Basophils % 0 % Neutrophils # 7.6 (1.3-7.7) k/uL Lymphocytes # 1.2 (1.0-4.8) k/uL Monocytes # 0.5 (0-1.0) k/uL Eosinophils # 0.2 (0-0.7) k/uL Basophils # 0.0 (0-0.2) k/uL Nucleated RBCs 0 (0-0) /100 WBC Hypochromasia Marked Poikilocytosis Slight Macrocytosis Slight PT 11.6 (9.0-12.0) sec INR 1.1 (<1.2) APTT 22.0 (22.0-30.0) sec D-Dimer 0.60 H (<0.60) mg/L FEU Sodium 139 (137-145) mmol/L Potassium 3.5 (3.5-5.1) mmol/L Chloride 98 (98-107) mmol/L Carbon Dioxide 30 (22-30) mmol/L Anion Gap 11 mmol/L BUN 27 H (7-17) mg/dL Creatinine 1.31 H (0.52-1.04) mg/dL Est GFR (CKD-EPI)AfAm 46 (>60 ml/min/1.73 sqM) Est GFR (CKD-EPI)NonAf 40 (>60 ml/min/1.73 sqM) Glucose 213 H (74-99) mg/dL Calcium 8.9 (8.4-10.2) mg/dL Magnesium 2.4 H (1.6-2.3) mg/dL Total Bilirubin 0.3 (0.2-1.3) mg/dL AST 26 (14-36) U/L ALT 13 (4-34) U/L Alkaline Phosphatase 86 (38-126) U/L Troponin I (0.000-0.034) ng/mL NT-Pro-B Natriuret Pep pg/mL Total Protein 5.9 L (6.3-8.2) g/dL Albumin 3.6 (3.5-5.0) g/dL TSH 0.461 L (0.465-4.680) mIU/L Free T4 1.55 (0.78-2.19) ng/dL Blood Type Blood Type Recheck Bld Type Recheck Status Antibody Screen Crossmatch Spec Expiration Date 11/12/20 11/12/20 11/12/20 Range/Units 15:39 15:39 15:39 WBC (3.8-10.6) k/uL RBC (3.80-5.40) m/uL Hgb (11.4-16.0) gm/dL Hct (34.0-46.0) % MCV (80.0-100.0) fL MCH (25.0-35.0) pg MCHC (31.0-37.0) g/dL RDW (11.5-15.5) % Plt Count (150-450) k/uL MPV Neutrophils % % Neutrophils % (Manual) % Band Neuts % (Manual) % Lymphocytes % % Lymphocytes % (Manual) % Monocytes % % Monocytes % (Manual) % Eosinophils % % Eosinophils % (Manual) % Basophils % % Neutrophils # (1.3-7.7) k/uL Lymphocytes # (1.0-4.8) k/uL Monocytes # (0-1.0) k/uL Eosinophils # (0-0.7) k/uL Basophils # (0-0.2) k/uL Nucleated RBCs (0-0) /100 WBC Hypochromasia Poikilocytosis Macrocytosis PT (9.0-12.0) sec INR (<1.2) APTT (22.0-30.0) sec D-Dimer (<0.60) mg/L FEU Sodium (137-145) mmol/L Potassium (3.5-5.1) mmol/L Chloride (98-107) mmol/L Carbon Dioxide (22-30) mmol/L Anion Gap mmol/L BUN (7-17) mg/dL Creatinine (0.52-1.04) mg/dL Est GFR (CKD-EPI)AfAm (>60 ml/min/1.73 sqM) Est GFR (CKD-EPI)NonAf (>60 ml/min/1.73 sqM) Glucose (74-99) mg/dL Calcium (8.4-10.2) mg/dL Magnesium 2.4 H (1.6-2.3) mg/dL Total Bilirubin (0.2-1.3) mg/dL AST (14-36) U/L ALT (4-34) U/L Alkaline Phosphatase (38-126) U/L Troponin I <0.012 (0.000-0.034) ng/mL NT-Pro-B Natriuret Pep 965 pg/mL Total Protein (6.3-8.2) g/dL Albumin (3.5-5.0) g/dL TSH (0.465-4.680) mIU/L Free T4 (0.78-2.19) ng/dL Blood Type Blood Type Recheck Bld Type Recheck Status Antibody Screen Crossmatch Spec Expiration Date 11/12/20 Range/Units 16:24 WBC (3.8-10.6) k/uL RBC (3.80-5.40) m/uL Hgb (11.4-16.0) gm/dL Hct (34.0-46.0) % MCV (80.0-100.0) fL MCH (25.0-35.0) pg MCHC (31.0-37.0) g/dL RDW (11.5-15.5) % Plt Count (150-450) k/uL MPV Neutrophils % % Neutrophils % (Manual) % Band Neuts % (Manual) % Lymphocytes % % Lymphocytes % (Manual) % Monocytes % % Monocytes % (Manual) % Eosinophils % % Eosinophils % (Manual) % Basophils % % Neutrophils # (1.3-7.7) k/uL Lymphocytes # (1.0-4.8) k/uL Monocytes # (0-1.0) k/uL Eosinophils # (0-0.7) k/uL Basophils # (0-0.2) k/uL Nucleated RBCs (0-0) /100 WBC Hypochromasia Poikilocytosis Macrocytosis PT (9.0-12.0) sec INR (<1.2) APTT (22.0-30.0) sec D-Dimer (<0.60) mg/L FEU Sodium (137-145) mmol/L Potassium (3.5-5.1) mmol/L Chloride (98-107) mmol/L Carbon Dioxide (22-30) mmol/L Anion Gap mmol/L BUN (7-17) mg/dL Creatinine (0.52-1.04) mg/dL Est GFR (CKD-EPI)AfAm (>60 ml/min/1.73 sqM) Est GFR (CKD-EPI)NonAf (>60 ml/min/1.73 sqM) Glucose (74-99) mg/dL Calcium (8.4-10.2) mg/dL Magnesium (1.6-2.3) mg/dL Total Bilirubin (0.2-1.3) mg/dL AST (14-36) U/L ALT (4-34) U/L Alkaline Phosphatase (38-126) U/L Troponin I (0.000-0.034) ng/mL NT-Pro-B Natriuret Pep pg/mL Total Protein (6.3-8.2) g/dL Albumin (3.5-5.0) g/dL TSH (0.465-4.680) mIU/L Free T4 (0.78-2.19) ng/dL Blood Type O Negative Blood Type Recheck O Neg Bld Type Recheck Status No Antibody Screen NEGATIVE Crossmatch See Detail Spec Expiration Date 11/15/20208 Critical Care Time Critical Care Time: Yes Total Critical Care Time: 30 Disposition Clinical Impression: Symptomatic anemia, Pulmonary embolism, Acute kidney injury, Junctional bradyc ardia Disposition: ADMITTED IP TO THIS HOSP Condition: Serious
--- NOTE | 2020-11-12 16:16 | XR ---
EXAMINATION TYPE: XR chest 1V portable DATE OF EXAM: 11/12/2020 COMPARISON: 10/20/2020 HISTORY: Syncope TECHNIQUE: FINDINGS: Heart is enlarged. There is no heart failure. Costophrenic angles are fairly clear. There a re no hilar masses. Thoracic aorta is atheromatous. There are chest leads. IMPRESSION: Cardiomegaly. No heart failure. No adverse change.
[2020-11-12] MEDS ORDERED: PANTOPRAZOLE 40 MG/10 ML VIAL IVP ONE (16:17)
[2020-11-12 16:20] LABS: INR 1.1 (<1.2); Prothrombin Time 11.6 sec (9.0-12.0)
[2020-11-12] MEDS ORDERED: NALOXONE 0.4 MG/ML 1 ML VIAL IV PRN (16:56)
--- NOTE | 2020-11-12 16:56 | ED ---
General Adult HPI - General Chief complaint: Syncope Stated complaint: syncope, bradycardia symptoms Source: EMS Mode of arrival: EMS Limitations: no limitations - History of Present Illness Initial comments: Nancy is a 75yo F with extensive history most significant for recent admission for COPD exacerbation at which time she had a pulmonary embolism identified and was started on Eliquis. Patient previously been on Plavix after having the watchman procedure for atrial fibrillation. She presents to the emergency department today via ambulance after a syncopal episode at a restaurant. Patient reports that she was feeling somewhat lightheaded and tired, when she was getting ready to leave she stood up and her vision went black. Patient nearly fell to the ground by her granddaughter caught her. She did not fall to the ground she did not hit her head. Upon EMS arrival patient was noted to be bradycardic and hypotensive. IV access was obtained IV fluid bolus was initiated and patient was brought to the ER for further evaluation. Patient states that since her previous hospitalization she has been having black stools 1-2 times daily. She does not think that this was blood and thought that it was just a side effect of the new medication. Does have a history of GI bleeding in the past and has been scoped by Dr. Brewster however she has never required blood transfusion. Patient admits to feeling quite fatigued over the past week, her daughter notes that she's been sleeping significantly more than previous and his seems somewhat forgetful. Patient has not had any fevers chills, cough cold congestion. She's not had any chest pain palpitations or shortness of breath any worsening her baseline. - Related Data Home Medications Medication Instructions Recorded Confirmed Baclofen [Lioresal] 10 mg PO TID PRN 07/20/15 10/20/20 Hydrocodone/Acetaminophen [[place] 1 tab PO QID PRN 07/20/15 10/20/20 7.5-325] Moexipril [Univasc] 7.5 mg PO DAILY 07/20/15 10/20/20 Pravastatin Sodium [Pravachol] 40 mg PO DAILY 07/20/15 10/20/20 Latanoprost [Xalatan 0.005%] 2 drop BOTH EYES HS 10/15/16 10/20/20 Nadolol 40 mg PO DAILY 10/15/16 10/20/20 Albuterol Nebulized [Ventolin 2.5 mg INHALATION RT-TID PRN 08/11/17 10/20/20 Nebulized] Budesonide/Formoterol Fumarate 2 puff INHALATION RT-BID 08/11/17 10/20/20 [Symbicort 160-4.5 Mcg Inhaler] Albuterol Inhaler [Ventolin Hfa 1 puff INHALATION RT-QID PRN 12/03/19 10/20/20 Inhaler] Denosumab [Prolia] 60 mg SQ Q180D 04/06/20 10/20/20 Diclofenac Sodium [Voltaren Gel] 2 gram TOPICAL BID PRN 04/06/20 10/20/20 Omeprazole 20 mg PO DAILY 06/25/20 10/20/20 Aspirin EC [Ecotrin Low Dose] 81 mg PO DAILY 08/07/20 10/20/20 Clopidogrel Bisulfate [Plavix] 75 mg PO DAILY 08/07/20 10/20/20 Umeclidinium [place] [Incruse 1 puff INHALATION RT-DAILY 08/07/20 10/20/20 Ellipta] Verapamil HCl [Verapamil ER] 240 mg PO DAILY 08/07/20 10/20/20 cycloSPORINE 0.05% OPHTH SOLN 1 drop BOTH EYES BID 08/07/20 10/20/20 [Restasis] hydroCHLOROthiazide [Hydrodiuril] 12.5 mg PO DAILY 08/07/20 10/20/20 Previous Rx's Medication Instructions Recorded Furosemide [Lasix] 20 mg PO DAILY 30 Days #30 tab 08/09/20 Magnesium Oxide [Magox 400] 400 mg PO DAILY 30 Days #30 tablet 08/09/20 Apixaban [Eliquis Starter Pack 0 mg PO DIRECTED 30 Days #1 pack 10/22/20 (for VTE)] Allergies Allergy/AdvReac Type Severity Reaction Status Date / Time No Known Allergies Allergy Verified 11/12/20 15:14 Review of Systems ROS Statement: Those systems with pertinent positive or pertinent negative responses have been documented in the HPI. ROS Other: All systems not noted in ROS Statement are negative. Past Medical History Past Medical History: Atrial Fibrillation, Asthma, COPD, GERD/Reflux, GI Bleed, Hyperlipidemia, Hypertension, Osteoarthritis (OA), Pneumonia, Vascular Disorder Additional Past Medical History / Comment(s): [place], Bronchitis, gastric ulcer, diverticular disease, lower GI bleed/AV malformation with ablation, benign colon polyp, borderline hyperlipidemia, arthritis mostly in back, slight bilateral glaucoma, varicosities. History of Any Multi-Drug Resistant Organisms: None Reported Past Surgical History: Adenoidectomy, Appendectomy, Heart Catheterization, Hysterectomy, Tonsillectomy, Tubal Ligation Additional Past Surgical History / Comment(s): Colonoscopy/benign polypectomy/AV malformation ablation, bilateral cataract removals, watchmen procedure Past Anesthesia/Blood Transfusion Reactions: No Reported Reaction Additional Past Anesthesia/Blood Transfusion Reaction / Comment(s): never recieved blood before. Past Psychological History: No Psychological Hx Reported Smoking Status: Never smoker, Second hand smoke exposure Past Alcohol Use History: None Reported Past Drug Use History: None Reported - Past Family History Father Family Medical History: COPD Additional Family Medical History / Comment(s): EMPHYSEMA Mother Family Medical History: Osteoarthritis (OA) Additional Family Medical History / Comment(s): EMPHYSEMA, BOWEL OBSTRUCTION/COLOSTOMY General Exam - General Exam Comments Initial Comments: Physical Exam GENERAL: Chronically ill-appearing elderly female HENT: Normocephalic, Atraumatic. EYES: PERRL, EOMI Conjunctival pallor PULMONARY: Unlabored respirations. No audible rales rhonchi or wheezing was noted. CARDIOVASCULAR: Bradycardic, regular ABDOMEN: Soft and nontender with normal bowel sounds. SKIN: Pale : Deferred NEUROLOGIC: Patient is alert and oriented x3. Moving all extremities spontaneously MUSCULOSKELETAL: Normal extremities with adequate strength and full range of motion. No lower extremity swelling or edema. No calf tenderness. PSYCHIATRIC: Normal psychiatric evaluation. Limitations: no limitations Course Vital Signs 11/12/20 11/12/20 11/12/20 15:08 15:15 15:35 Temperature 97.7 F Pulse Rate 49 L 51 L 49 L Pulse Rate [ Nitrating Acid Mixer ] Respiratory 14 16 16 Rate Blood Pressure 64/39 67/54 68/44 O2 Sat by Pulse 100 98 100 Oximetry 11/12/20 11/12/20 11/12/20 15:45 15:46 16:00 Temperature Pulse Rate 50 L Pulse Rate [ 51 L Nitrating Acid Mixer ] Respiratory 16 Rate Blood Pressure 71/44 74/44 O2 Sat by Pulse 99 Oximetry 11/12/20 11/12/20 16:15 16:45 Temperature 97.9 F Pulse Rate 49 L 50 L Pulse Rate [ Nitrating Acid Mixer ] Respiratory 16 16 Rate Blood Pressure 70/47 75/48 O2 Sat by Pulse 99 100 Oximetry EKG Findings - EKG Comments: EKG Findings:: EKG was obtained due to bradycardia and syncope, EKG was obtained that 1517, rate is 50 rhythm is narrow complex regular, appears to be a junctional bradycardia. There are no acute ST elevations or depressions no e vidence of ischemia or infarction. When this EKG was compared to EKG taken earlier this month there is no change in morphology. Medical Decision Making - Medical Decision Making The patient was seen and evaluated, history is obtained from the patient and daughter at bedside 75 her old female with known pulmonary embolism, PE, atrial fibrillation, previous junctional bradycardia on EKG presenting to the ER today after a near syncopal or possibly syncopal episode at a restaurant, patient did not strike the ground. Labs and imaging were obtained Considering the patient has a known pulmonary embolism and a syncopal episode a repeat PE study will be obtained Complaining of thoracolumbar back pain therefore spinal imaging will be obtained Patient is hypotensive however she is awake alert and oriented, at this time I feel she will benefit from blood transfusion rather than pressors. Transfusion is ordered and patient does consent to transfusion. Patient care was discussed with Dr. Sigala who accepts the admission for GI bleed, symptomatic anemia, known pulmonary embolism. - Lab Data Result diagrams: 11/12/20 15:39 11/12/20 15:39 Lab Results 11/12/20 11/12/20 11/12/20 Range/Units 15:39 15:39 15:39 WBC 9.7 (3.8-10.6) k/uL RBC 2.12 L (3.80-5.40) m/uL Hgb 6.5 L* D (11.4-16.0) gm/dL Hct 21.4 L (34.0-46.0) % MCV 101.0 H D (80.0-100.0) fL MCH 30.8 (25.0-35.0) pg MCHC 30.5 L (31.0-37.0) g/dL RDW 15.5 (11.5-15.5) % Plt Count 347 (150-450) k/uL MPV 7.7 Neutrophils % 78 % Neutrophils % (Manual) 61 % Band Neuts % (Manual) 4 % Lymphocytes % 13 % Lymphocytes % (Manual) 24 % Monocytes % 5 % Monocytes % (Manual) 7 % Eosinophils % 2 % Eosinophils % (Manual) 4 % Basophils % 0 % Neutrophils # 7.6 (1.3-7.7) k/uL Lymphocytes # 1.2 (1.0-4.8) k/uL Monocytes # 0.5 (0-1.0) k/uL Eosinophils # 0.2 (0-0.7) k/uL Basophils # 0.0 (0-0.2) k/uL Nucleated RBCs 0 (0-0) /100 WBC Hypochromasia Marked Poikilocytosis Slight Macrocytosis Slight PT 11.6 (9.0-12.0) sec INR 1.1 (<1.2) APTT 22.0 (22.0-30.0) sec D-Dimer 0.60 H (<0.60) mg/L FEU Sodium 139 (137-145) mmol/L Potassium 3.5 (3.5-5.1) mmol/L Chloride 98 (98-107) mmol/L Carbon Dioxide 30 (22-30) mmol/L Anion Gap 11 mmol/L BUN 27 H (7-17) mg/dL Creatinine 1.31 H (0.52-1.04) mg/dL Est GFR (CKD-EPI)AfAm 46 (>60 ml/min/1.73 sqM) Est GFR (CKD-EPI)NonAf 40 (>60 ml/min/1.73 sqM) Glucose 213 H (74-99) mg/dL Calcium 8.9 (8.4-10.2) mg/dL Magnesium 2.4 H (1.6-2.3) mg/dL Total Bilirubin 0.3 (0.2-1.3) mg/dL AST 26 (14-36) U/L ALT 13 (4-34) U/L Alkaline Phosphatase 86 (38-126) U/L Troponin I (0.000-0.034) ng/mL Total Protein 5.9 L (6.3-8.2) g/dL Albumin 3.6 (3.5-5.0) g/dL TSH 0.461 L (0.465-4.680) mIU/L 07/24/21 07/24/21 Range/Units 15:39 15:39 WBC (3.8-10.6) k/uL RBC (3.80-5.40) m/uL Hgb (11.4-16.0) gm/dL Hct (34.0-46.0) % MCV (80.0-100.0) fL MCH (25.0-35.0) pg MCHC (31.0-37.0) g/dL RDW (11.5-15.5) % Plt Count (150-450) k/uL MPV Neutrophils % % Neutrophils % (Manual) % Band Neuts % (Manual) % Lymphocytes % % Lymphocytes % (Manual) % Monocytes % % Monocytes % (Manual) % Eosinophils % % Eosinophils % (Manual) % Basophils % % Neutrophils # (1.3-7.7) k/uL Lymphocytes # (1.0-4.8) k/uL Monocytes # (0-1.0) k/uL Eosinophils # (0-0.7) k/uL Basophils # (0-0.2) k/uL Nucleated RBCs (0-0) /100 WBC Hypochromasia Poikilocytosis Macrocytosis PT (9.0-12.0) sec INR (<1.2) APTT (22.0-30.0) sec D-Dimer (<0.60) mg/L FEU Sodium (137-145) mmol/L Potassium (3.5-5.1) mmol/L Chloride (98-107) mmol/L Carbon Dioxide (22-30) mmol/L Anion Gap mmol/L BUN (7-17) mg/dL Creatinine (0.52-1.04) mg/dL Est GFR (CKD-EPI)AfAm (>60 ml/min/1.73 sqM) Est GFR (CKD-EPI)NonAf (>60 ml/min/1.73 sqM) Glucose (74-99) mg/dL Calcium (8.4-10.2) mg/dL Magnesium 2.4 H (1.6-2.3) mg/dL Total Bilirubin (0.2-1.3) mg/dL AST (14-36) U/L ALT (4-34) U/L Alkaline Phosphatase (38-126) U/L Troponin I <0.012 (0.000-0.034) ng/mL Total Protein (6.3-8.2) g/dL Albumin (3.5-5.0) g/dL TSH (0.465-4.680) mIU/L Disposition Clinical Impression: Symptomatic anemia, Pulmonary embolism, Acute kidney injury, Junctional bradycardia Disposition: ADMITTED IP TO THIS HOSP Condition: Serious Is patient prescribed a controlled substance at d/c from ED?: No Referrals: Danielle Monzon MD [Primary Care Provider] - 1-2 days
[2020-11-12] MEDS ORDERED: HYDROcodone/APAP 7.5-325MG 1 EACH TAB PO ONE (17:00)
[2020-11-12] MEDS ORDERED: ALBUTEROL NEBULIZED 2.5 MG/3 ML INHALATION PRN (17:06)
--- NOTE | 2020-11-12 17:14 | P.HPIM ---
History of Present Illness H&P Date: 11/12/20 Chief Complaint: syncope 75 y/o female with hx of a-fib s/p watchman procedure, recent PE on eliquis chronic back pain presented to the ER due to an episode of syncope today. Patient was admitted last month due to shortness of breath induced by pulmonary embolism, she was started on AC with eliquis. Since she was started on it she has been having black stools. She thought that the black stools are due to medication side effect and did not seek medical attention for it. Patient has been having worsening dizziness, lightheadedness, general weakness and shortness of breath since then. Today she was at the restaurant and she passed out but her granddaughter caught her before she went to the floor. Patient denied having any fevers or chills. No recent flulike illness. No abdominal pain, no nausea or vomiting. Denied use of NSAIDs. In the emergency department her hemoglobin was 6.5, she was resuscitated with IV fluids and was admitted to the hospital for further evaluation and management. Review of Systems Complete review of system performed, pertinent positives per HPI, otherwise negative Past Medical History Past Medical History: Atrial Fibrillation, Asthma, COPD, GERD/Reflux, GI Bleed, Hyperlipidemia, Hypertension, Osteoarthritis (OA), Pneumonia, Vascular Disorder Additional Past Medical History / Comment(s): [place], Bronchitis, gastric ulcer, diverticular disease, lower GI bleed/AV malformation with ablation, benign colon polyp, borderline hyperlipidemia, arthritis mostly in back, slight bilateral glaucoma, varicosities. History of Any Multi-Drug Resistant Organisms: None Reported Past Surgical History: Adenoidectomy, Appendectomy, Heart Catheterization, Hysterectomy, Tonsillectomy, Tubal Ligation Additional Past Surgical History / Comment(s): Colonoscopy/benign polypectomy/AV malformation ablation, bilateral cataract removals, watchmen procedure Past Anesthesia/Blood Transfusion Reactions: No Reported Reaction Additional Past Anesthesia/Blood Transfusion Reaction / Comment(s): never recieved blood before. Past Psychological History: No Psychological Hx Reported Smoking Status: Never smoker, Second hand smoke exposure Past Alcohol Use History: None Reported Past Drug Use History: None Reported - Past Family History Father Family Medical History: COPD Additional Family Medical History / Comment(s): EMPHYSEMA Mother Family Medical History: Osteoarthritis (OA) Additional Family Medical History / Comment(s): EMPHYSEMA, BOWEL OBSTRUCTION/COLOSTOMY Medications and Allergies Home Medications Medication Instructions Recorded Confirmed Type Baclofen [Lioresal] 10 mg PO TID PRN 07/20/15 10/20/20 History Hydrocodone/Acetaminophen [[place] 1 tab PO QID PRN 07/20/15 10/20/20 History 7.5-325] Moexipril [Univasc] 7.5 mg PO DAILY 07/20/15 10/20/20 History Pravastatin Sodium [Pravachol] 40 mg PO DAILY 07/20/15 10/20/20 History Latanoprost [Xalatan 0.005%] 2 drop BOTH EYES HS 10/15/16 10/20/20 History Nadolol 40 mg PO DAILY 10/15/16 10/20/20 History Albuterol Nebulized [Ventolin 2.5 mg INHALATION RT-TID PRN 08/11/17 10/20/20 History Nebulized] Budesonide/Formoterol Fumarate 2 puff INHALATION RT-BID 08/11/17 10/20/20 History [Symbicort 160-4.5 Mcg Inhaler] Albuterol Inhaler [Ventolin [place] 1 puff INHALATION RT-QID PRN 12/03/19 10/20/20 History Inhaler] Denosumab [Prolia] 60 mg SQ Q180D 04/06/20 10/20/20 History Diclofenac Sodium [Voltaren Gel] 2 gram TOPICAL BID PRN 04/06/20 10/20/20 History Omeprazole 20 mg PO DAILY 06/25/20 10/20/20 History Aspirin EC [Ecotrin Low Dose] 81 mg PO DAILY 08/07/20 10/20/20 History Clopidogrel Bisulfate [Plavix] 75 mg PO DAILY 08/07/20 10/20/20 History Umeclidinium [place] [Incruse 1 puff INHALATION RT-DAILY 08/07/20 10/20/20 History Ellipta] Verapamil HCl [Verapamil ER] 240 mg PO DAILY 08/07/20 10/20/20 History cycloSPORINE 0.05% OPHTH SOLN 1 drop BOTH EYES BID 08/07/20 10/20/20 History [Restasis] hydroCHLOROthiazide [Hydrodiuril] 12.5 mg PO DAILY 08/07/20 10/20/20 History Furosemide [Lasix] 20 mg PO DAILY 30 Days #30 tab 08/09/20 10/20/20 Rx Magnesium Oxide [Magox 400] 400 mg PO DAILY 30 Days #30 tablet 08/09/20 10/20/20 Rx Apixaban [Eliquis Starter Pack 0 mg PO DIRECTED 30 Days #1 pack 10/22/20 Rx (for VTE)] Allergies Allergy/AdvReac Type Severity Reaction Status Date / Time No Known Allergies Allergy Verified 11/12/20 15:14 Physical Exam Vitals: Vital Signs Temp Pulse Pulse Resp BP Pulse Ox 11/12/20 16:15 97.9 F 49 L 16 70/47 99 11/12/20 16:00 50 L 16 74/44 99 11/12/20 15:46 51 L 11/12/20 15:45 71/44 11/12/20 15:35 49 L 16 68/44 100 11/12/20 15:15 51 L 16 67/54 98 11/12/20 15:08 97.7 F 49 L 14 64/39 100 Intake and Output 11/12/20 11/12/20 11/12/20 06:59 14:59 22:59 Other: Weight 57.697 kg Constitutional: No acute distress, conversant, pleasant. Looking pale. Eyes:Anicteric sclerae, moist conjunctiva, no lid-lag, PERRLA, ENMT: Oropharynx clear, no erythema, exudates Neck: Supple, FROM, no masses, or JVD, No carotid bruits, No thyromegaly Lungs: Clear to auscultation, Clear to percussion, Normal respiratory effort, no accessory muscle use Cardiovascular: Heart regular in rate and rhythm, No murmurs, gallops, or rubs, No peripheral edema Abdominal: Soft, Nontender, no guarding, rebound or rigidity, Normoactive bowel sounds, No hepatomegaly, No splenomegaly, No palpable mass Skin: Normal temperature, tone, texture, turgor, no induration, No subcutaneous nodules, No rash, lesions, No ulcers Extremities: No digital cyanosis, No clubbing, Pedal pulses intact and symmetrical, Radial pulses intact and symmetrical, No calf tenderness Psychiatric: Alert and oriented to person, place and time, appropriate affect, intact judgement Neuro: Muscles Strength 5/5 in all 4 extremities, Sensation to light touch grossly present throughout, Cranial nerves II-XII grossly intact, no focal sensory deficits Results CBC & Chem 7: 11/12/20 15:39 11/12/20 15:39 Labs: Abnormal Lab Results - Last 24 Hours (Table) 11/12/20 11/12/20 11/12/20 Range/Units 15:39 15:39 15:39 RBC 2.12 L (3.80-5.40) m/uL Hgb 6.5 L* D (11.4-16.0) gm/dL Hct 21.4 L (34.0-46.0) % MCV 101.0 H D (80.0-100.0) fL MCHC 30.5 L (31.0-37.0) g/dL D-Dimer 0.60 H (<0.60) mg/L FEU BUN 27 H (7-17) mg/dL Creatinine 1.31 H (0.52-1.04) mg/dL Glucose 213 H (74-99) mg/dL Magnesium 2.4 H (1.6-2.3) mg/dL Total Protein 5.9 L (6.3-8.2) g/dL 11/12/20 Range/Units 15:39 RBC (3.80-5.40) m/uL Hgb (11.4-16.0) gm/dL Hct (34.0-46.0) % MCV (80.0-100.0) fL MCHC (31.0-37.0) g/dL D-Dimer (<0.60) mg/L FEU BUN (7-17) mg/dL Creatinine (0.52-1.04) mg/dL Glucose (74-99) mg/dL Magnesium 2.4 H (1.6-2.3) mg/dL Total Protein (6.3-8.2) g/dL Assessment and Plan Plan: Acute blood loss anemia Likely secondary to treatment with Plavix and eliquis Transfuse packed red blood cells. Currently awaiting type and screen. Recheck hemoglobin after transfusion PPI IV IV fluids Clear liquid diet GI consult Hypotension Likely sec to dehydration and GI bleeding Hold bp meds IV fluids. Acute on chronic back pain Unable to rule out fractures CT lumbar and thoracic spine ordered [place] Chronic atrial Fibrillation s/p watchman Asthma, COPD, GERD/Reflux, Hyperlipidemia, Osteoarthritis (OA), All stable resume meds Admitted to inpatient expected length of stay more than 2 midnights.
[2020-11-12 17:34] LABS: T4, Free (Free Thyroxine) 1.55 ng/dL (0.78-2.19)
--- NOTE | 2020-11-12 18:37 | CT ---
EXAMINATION TYPE: CT thor lumbar spine wo con DATE OF EXAM: 11/12/2020 COMPARISON: 10/20/2020 and 06/26/2020 HISTORY: Back pain for years CT DLP: 1257.7 mGycm Automated exposure control for dose reduction was used. Images obtained from the level of T1-S1 vertebra without contrast. There is a mid lumbar mild dextroscoliosis. There is mild thoracolumbar levoscoliosis. There is multi level degenerative disc space narrowing and vacuum disc in the lumbar spine from T12 to S1. There is no significant compression deformity. There is no thoracic or lumbar paraspinal mass. I see no focal bone destruction. The posterior elements are intact. There is a ring metallic density in the left atr ium on the left side.. There is small pericardial effusion. There is moderate L3-4 bony spinal stenos is. There is moderately severe spinal stenosis at L2-3. IMPRESSION: All the level lumbar and thoracic spondylotic changes. No compression fracture. Lower lumbar spinal s tenosis. Scoliotic mild deformity. Small pericardial effusion. Cardiomegaly. No change compared to old exams.
[2020-11-12] MEDS ORDERED: ONDANSETRON 4 MG/2 ML VIAL IVP STA (19:04)
[2020-11-12] MEDS: SYMBICORT 160-4.5 MCG INHALER INHALATION SCH (22:10)
[2020-11-12] MEDS: cycloSPORINE 0.05% OPHTH 0.4 ML DROPERETTE BOTH EYES SCH (23:26)
[2020-11-12] MEDS: PANTOPRAZOLE 40 MG/10 ML VIAL IVP SCH (23:27)
[2020-11-12] MEDS: LATANOPROST 0.005% OPHTH DROPS 2.5 ML BTL BOTH EYES SCH (23:27)
[2020-11-13 05:32] LABS: Anisocytosis Slight; HCT 29.6 % (34.0-46.0); Hypochromasia Marked; MCH 32.6 pg (25.0-35.0); MCHC 33.1 g/dL (31.0-37.0); MCV 98.7 fL (80.0-100.0); Macrocytosis Slight; Mean Platelet Volume 7.3; Platelet Count 311 k/uL (150-450); Poikilocytosis Moderate; RDW 16.3 % (11.5-15.5); WBC 14.9 k/uL (3.8-10.6)
[2020-11-13 05:33] LABS: HGB 9.8 gm/dL (11.4-16.0)
[2020-11-13] MEDS: PANTOPRAZOLE 40 MG/10 ML VIAL IVP SCH ×2 (08:18→20:54)
[2020-11-13] MEDS: cycloSPORINE 0.05% OPHTH 0.4 ML DROPERETTE BOTH EYES SCH ×2 (08:23→20:54)
[2020-11-13] MEDS: SYMBICORT 160-4.5 MCG INHALER INHALATION SCH ×2 (09:09→20:21)
--- NOTE | 2020-11-13 09:54 | P.PN ---
Subjective Progress Note Date: 11/13/20 Principal diagnosis: GI bleeding Patient seems to be doing better. Her blood pressure is up. According to the nursing staff there was no black stools or obvious signs of bleeding. Objective - Vital Signs Vital signs: Vital Signs Temp 98.7 F 11/13/20 08:16 Pulse 80 11/13/20 08:16 Resp 18 11/13/20 08:16 BP 125/71 11/13/20 08:16 Pulse Ox 92 L 11/13/20 08:16 Intake & Output 11/12/20 11/13/20 11/13/20 18:59 06:59 18:59 Intake Total 0 1041 0 Balance 0 1041 0 Weight 57.697 kg 56 kg Intake: Intake, IV Titration 200 Amount Sodium Chloride 0.9% 1, 200 000 ml @ 130 mls/hr IV . Q7H42M STA Rx#:[id number] Oral 0 Blood Product 0 841 Rc Pheresis 2 As3 Unit 0 283 [id number] Rc Pheresis As-3 Unit 275 [id number] Other: Voiding Method Toilet # Voids 1 1 # Bowel Movements 1 - Exam Constitutional: No acute distress, conversant, pleasant Eyes:Anicteric sclerae, moist conjunctiva, no lid-lag, PERRLA, ENMT: Oropharynx clear, no erythema, exudates Neck: Supple, FROM, no masses, or JVD, No carotid bruits, No thyromegaly Lungs: Clear to auscultation, Clear to percussion, Normal respiratory effort, no accessory muscle use Cardiovascular: Heart regular in rate and rhythm, No murmurs, gallops, or rubs, No peripheral edema Abdominal: Soft, Nontender, no guarding, rebound or rigidity, Normoactive bowel sounds, No hepatomegaly, No splenomegaly, No palpable mass Skin: Normal temperature, tone, texture, turgor, no induration, No subcutaneous nodules, No rash, lesions, No ulcers Extremities: No digital cyanosis, No clubbing, Pedal pulses intact and symmetrical, Radial pulses intact and symmetrical, No calf tenderness Psychiatric: Alert and oriented to person, place and time, appropriate affect, intact judgement Neuro: Muscles Strength 5/5 in all 4 extremities, Sensation to light touch grossly present throughout, Cranial nerves II-XII grossly intact, no focal sensory deficits - Labs CBC & Chem 7: 11/13/20 04:13 11/12/20 15:39 Labs: Abnormal Lab Results - Last 24 Hours (Table) 11/12/20 11/12/20 11/12/20 Range/Units 15:39 15:39 15:39 WBC (3.8-10.6) k/uL RBC 2.12 L (3.80-5.40) m/uL Hgb 6.5 L* D (11.4-16.0) gm/dL Hct 21.4 L (34.0-46.0) % MCV 101.0 H D (80.0-100.0) fL MCHC 30.5 L (31.0-37.0) g/dL RDW (11.5-15.5) % D-Dimer 0.60 H (<0.60) mg/L FEU BUN 27 H (7-17) mg/dL Creatinine 1.31 H (0.52-1.04) mg/dL Glucose 213 H (74-99) mg/dL Magnesium 2.4 H (1.6-2.3) mg/dL Total Protein 5.9 L (6.3-8.2) g/dL TSH 0.461 L (0.465-4.680) mIU/L Crossmatch 11/12/20 11/12/20 11/13/20 Range/Units 15:39 16:24 04:13 WBC 14.9 H (3.8-10.6) k/uL RBC 3.00 L (3.80-5.40) m/uL Hgb 9.8 L D (11.4-16.0) gm/dL Hct 29.6 L (34.0-46.0) % MCV (80.0-100.0) fL MCHC (31.0-37.0) g/dL RDW 16.3 H (11.5-15.5) % D-Dimer (<0.60) mg/L FEU BUN (7-17) mg/dL Creatinine (0.52-1.04) mg/dL Glucose (74-99) mg/dL Magnesium 2.4 H (1.6-2.3) mg/dL Total Protein (6.3-8.2) g/dL TSH (0.465-4.680) mIU/L Crossmatch See Detail Assessment and Plan Plan: Acute blood loss anemia Likely secondary to treatment with Plavix and eliquis Status post 2 units of packed red blood cells transfusion, hemoglobin came up appropriately. PPI IV IV fluids Clear liquid diet GI consulted, will see in am. No coverage over the weekend Hypotension Resolved Likely sec to dehydration and GI bleeding Hold bp meds IV fluids. Acute on chronic back pain CT lumbar and thoracic spine ok, nothing acute. [place] prn Chronic atrial Fibrillation s/p watchman Asthma, COPD, GERD/Reflux, Hyperlipidemia, Osteoarthritis (OA), All stable resume meds Anticipate discharge: 2 to 3 days Anticipated disposition home with home care
--- NOTE | 2020-11-13 10:32 | P.GSCN ---
History of Present Illness Consult date: 11/13/20 Reason for Consult: Anemia History of present illness: Cyst 75-year-old female who was admitted to the medical service. Patient was admitted for workup of anemia. Patient is unable to give any significant medical history. She is currently sleeping in her bed and is unable give any information. Past Medical History Past Medical History: Atrial Fibrillation, Asthma, COPD, GERD/Reflux, GI Bleed, Hyperlipidemia, Hypertension, Osteoarthritis (OA), Pneumonia, Vascular Disorder Additional Past Medical History / Comment(s): [place], Bronchitis, gastric ulcer, diverticular disease, lower GI bleed/AV malformation with ablation, benign colon polyp, borderline hyperlipidemia, arthritis mostly in back, slight bilateral glaucoma, varicosities. History of Any Multi-Drug Resistant Organisms: None Reported Past Surgical History: Adenoidectomy, Appendectomy, Heart Catheterization, Hysterectomy, Tonsillectomy, Tubal Ligation Additional Past Surgical History / Comment(s): Colonoscopy/benign polypectomy/AV malformation ablation, bilateral cataract removals, watchmen procedure Past Anesthesia/Blood Transfusion Reactions: No Reported Reaction Additional Past Anesthesia/Blood Transfusion Reaction / Comm: never recieved blood before. Past Psychological History: No Psychological Hx Reported Smoking Status: Never smoker, Second hand smoke exposure Past Alcohol Use History: None Reported Past Drug Use History: None Reported - Past Family History Father Family Medical History: COPD Additional Family Medical History / Comment(s): EMPHYSEMA Mother Family Medical History: Osteoarthritis (OA) Additional Family Medical History / Comment(s): EMPHYSEMA, BOWEL OBSTRUCTION/COLOSTOMY Medications and Allergies Home Medications Medication Instructions Recorded Confirmed Type Baclofen [Lioresal] 10 mg PO TID PRN 07/20/15 11/12/20 History Moexipril [Univasc] 7.5 mg PO DAILY 07/20/15 11/12/20 History Pravastatin Sodium [Pravachol] 40 mg PO DAILY 07/20/15 11/12/20 History Latanoprost [Xalatan 0.005%] 2 drop BOTH EYES HS 10/15/16 11/12/20 History Nadolol 40 mg PO DAILY 10/15/16 11/12/20 History Albuterol Nebulized [Ventolin 2.5 mg INHALATION RT-TID PRN 08/11/17 11/12/20 History Nebulized] Budesonide/Formoterol Fumarate 2 puff INHALATION RT-BID 08/11/17 11/12/20 History [Symbicort 160-4.5 Mcg Inhaler] Albuterol Inhaler [Ventolin Hfa 1 puff INHALATION RT-QID PRN 12/03/19 11/12/20 History Inhaler] Denosumab [Prolia] 60 mg SQ Q180D 04/06/20 11/12/20 History Diclofenac Sodium [Voltaren Gel] 2 gram TOPICAL BID PRN 04/06/20 11/12/20 History Omeprazole 20 mg PO DAILY 06/25/20 11/12/20 History Aspirin EC [Ecotrin Low Dose] 81 mg PO DAILY 08/07/20 11/12/20 History Clopidogrel Bisulfate [Plavix] 75 mg PO DAILY 08/07/20 11/12/20 History Umeclidinium [place] [Incruse 1 puff INHALATION RT-DAILY 08/07/20 11/12/20 History Ellipta] Verapamil HCl [Verapamil ER] 240 mg PO DAILY 08/07/20 11/12/20 History cycloSPORINE 0.05% OPHTH SOLN 1 drop BOTH EYES BID 08/07/20 11/12/20 History [Restasis] hydroCHLOROthiazide [Hydrodiuril] 12.5 mg PO DAILY 08/07/20 11/12/20 History Furosemide [Lasix] 20 mg PO DAILY 30 Days #30 tab 08/09/20 11/12/20 Rx Magnesium Oxide [Magox 400] 400 mg PO DAILY 30 Days #30 tablet 08/09/20 11/12/20 Rx Apixaban [Eliquis] 5 mg PO BID 11/12/20 11/12/20 History HYDROcodone/APAP 10-325MG [[place] 1 tab PO BID PRN 11/12/20 11/12/20 History 10-325] Allergies Allergy/AdvReac Type Severity Reaction Status Date / Time No Known Allergies Allergy Verified 11/12/20 19:05 Surgical - Exam Vital Signs Temp Pulse Resp BP Pulse Ox 97.7 F 49 L 14 64/39 100 11/12/20 15:08 11/12/20 15:08 11/12/20 15:08 11/12/20 15:08 11/12/20 15:08 - General well developed, no distress - Eyes PERRL - ENT normal pinna - Neck no masses - Respiratory normal expansion - Cardiovascular Rhythm: regular - Abdomen Abdomen: soft, non tender Results - Labs 11/13/20 04:13 11/12/20 15:39 Abnormal Lab Results - Last 24 Hours (Table) 11/12/20 11/12/20 11/12/20 Range/Units 15:39 15:39 15:39 WBC (3.8-10.6) k/uL RBC 2.12 L (3.80-5.40) m/uL Hgb 6.5 L* D (11.4-16.0) gm/dL Hct 21.4 L (34.0-46.0) % MCV 101.0 H D (80.0-100.0) fL MCHC 30.5 L (31.0-37.0) g/dL RDW (11.5-15.5) % D-Dimer 0.60 H (<0.60) mg/L FEU BUN 27 H (7-17) mg/dL Creatinine 1.31 H (0.52-1.04) mg/dL Glucose 213 H (74-99) mg/dL Magnesium 2.4 H (1.6-2.3) mg/dL Total Protein 5.9 L (6.3-8.2) g/dL TSH 0.461 L (0.465-4.680) mIU/L Crossmatch 11/12/20 11/12/20 11/13/20 Range/Units 15:39 16:24 04:13 WBC 14.9 H (3.8-10.6) k/uL RBC 3.00 L (3.80-5.40) m/uL Hgb 9.8 L D (11.4-16.0) gm/dL Hct 29.6 L (34.0-46.0) % MCV (80.0-100.0) fL MCHC (31.0-37.0) g/dL RDW 16.3 H (11.5-15.5) % D-Dimer (<0.60) mg/L FEU BUN (7-17) mg/dL Creatinine (0.52-1.04) mg/dL Glucose (74-99) mg/dL Magnesium 2.4 H (1.6-2.3) mg/dL Total Protein (6.3-8.2) g/dL TSH (0.465-4.680) mIU/L Crossmatch See Detail Diabetes panel 11/12/20 Range/Units 15:39 Sodium 139 (137-145) mmol/L Potassium 3.5 (3.5-5.1) mmol/L Chloride 98 (98-107) mmol/L Carbon Dioxide 30 (22-30) mmol/L BUN 27 H (7-17) mg/dL Creatinine 1.31 H (0.52-1.04) mg/dL Glucose 213 H (74-99) mg/dL Calcium 8.9 (8.4-10.2) mg/dL AST 26 (14-36) U/L ALT 13 (4-34) U/L Alkaline Phosphatase 86 (38-126) U/L Total Protein 5.9 L (6.3-8.2) g/dL Albumin 3.6 (3.5-5.0) g/dL Thyroid panel 11/12/20 Range/Units 15:39 TSH 0.461 L (0.465-4.680) mIU/L Calcium panel 11/12/20 Range/Units 15:39 Calcium 8.9 (8.4-10.2) mg/dL Albumin 3.6 (3.5-5.0) g/dL Pituitary panel 11/12/20 Range/Units 15:39 Sodium 139 (137-145) mmol/L Potassium 3.5 (3.5-5.1) mmol/L Chloride 98 (98-107) mmol/L Carbon Dioxide 30 (22-30) mmol/L BUN 27 H (7-17) mg/dL Creatinine 1.31 H (0.52-1.04) mg/dL Glucose 213 H (74-99) mg/dL Calcium 8.9 (8.4-10.2) mg/dL TSH 0.461 L (0.465-4.680) mIU/L Adrenal panel 11/12/20 Range/Units 15:39 Sodium 139 (137-145) mmol/L Potassium 3.5 (3.5-5.1) mmol/L Chloride 98 (98-107) mmol/L Carbon Dioxide 30 (22-30) mmol/L BUN 27 H (7-17) mg/dL Creatinine 1.31 H (0.52-1.04) mg/dL Glucose 213 H (74-99) mg/dL Calcium 8.9 (8.4-10.2) mg/dL Total Bilirubin 0.3 (0.2-1.3) mg/dL AST 26 (14-36) U/L ALT 13 (4-34) U/L Alkaline Phosphatase 86 (38-126) U/L Total Protein 5.9 L (6.3-8.2) g/dL Albumin 3.6 (3.5-5.0) g/dL Assessment and Plan Assessment: Anemia. Patient should undergo upper and lower endoscopy when stable.
--- NOTE | 2020-11-13 11:53 | CONS ---
CONSULTATION Mrs. Naqvi is a 75-year-old female who presented to the emergency room with an episode of dizziness. The patient denied any syncope, but apparently she felt weak and had dizziness, although it was reported in the emergency room note that she had syncope. She had evidence of black stool and she was quite an anemic. The patient has a prior history of paroxysmal atrial fibrillation status post Watchman procedure done at [facility] in May by Dr. Garcia. She was admitted recently to the hospital with pulmonary embolism and was started on Eliquis. She is followed by Dr. Mckee on a regular basis. The patient denies any significant dyspnea. She denies any palpitation. She denies any history of myocardial infarction or angina pectoris. She had an echocardiogram performed in early October of this year that revealed a preserved left ventricular size and systolic function with no evidence of pulmonary hypertension at that time. The admission for the pulmonary embolism was early October. The patient is reasonably active, has no history of chest discomfort in the past. She had a stress test in August 2018 revealed no evidence of inducible ischemia. Her coronary risk factors are remarkable for history of hypertension, hyperlipidemia. She is nonsmoker, nondiabetic. Her medication included Ventolin, Xalatan, Prolia, HydroDIURIL, verapamil 240 mg daily, Univasc 7.5 mg daily, Lasix 20 mg daily, Plavix 75 mg daily, aspirin once a day, and Eliquis 5 mg twice a day. REVIEW OF SYSTEMS: Respiratory system: She has some dyspnea on exertion. No recent wheezing or cough. GI system: She had the GI bleeding and no nausea. system: No dysuria or hematuria. Nervous system: No stroke or seizure. PHYSICAL EXAMINATION: 75-year-old female, hard of hearing, reads lips. Blood pressure 125/70 with a heart rate in the 80s. She is in sinus. She was in junctional rhythm earlier. HEAD: Normocephalic. Eyes sclerae anicteric. NECK: Good carotid upstroke. No bruit. No jugular venous distention. LUNGS: Clear to auscultation. HEART: Regular rate and rhythm. S1, S2. No S3 with systolic murmur. No diastolic murmur. No rub. ABDOMEN: Soft. Nontender. Positive bowel sounds. No megaly. EXTREMITIES: No edema. Intact distal pulses. LAB DATA: Lab data revealed BUN and creatinine 27 and 1.31. Her troponin was less than 0.012. NT proBNP is 965. Her hemoglobin was 6.5 up to 9.8. EKG revealed a junctional rhythm, which has been noted in the past. IMPRESSION: 1. Transient ischemic attack. Questionable syncope, probable only dizziness with significant anemia related to GI bleeding in a patient with known history of prior GI bleeding on triple anticoagulation. 2. Prior history of paroxysmal atrial fibrillation, status post Watchman procedure. 3. Recent pulmonary embolism with anticoagulation. 4. History of hyperlipidemia. 5. History of hypertension. RECOMMENDATIONS: From the cardiac standpoint, the patient is off her anticoagulation at this time. Most likely she will require a Anthony filter because of the GI bleeding. At this time, there is no indication for the aspirin or the Plavix for the Watchman. If her pressure stabilized, then depending on her heart rate and blood pressure, we will initiate her antihypertensive regimen including her negative chronotropic drugs. Depending on her progress, further recommendations will be made. Thank you for this consult. We will follow with you. ATA / BILLN: [id number] /
[2020-11-13] MEDS: PRAVASTATIN SODIUM 40 MG TAB PO SCH (12:27)
[2020-11-13] MEDS: ALBUTEROL NEBULIZED 2.5 MG/3 ML INHALATION PRN (20:14)
[2020-11-13] MEDS: LATANOPROST 0.005% OPHTH DROPS 2.5 ML BTL BOTH EYES SCH (20:54)
[2020-11-14] MEDS: BACLOFEN 10 MG TAB PO PRN ×3 (03:05→20:20)
[2020-11-14] MEDS: SYMBICORT 160-4.5 MCG INHALER INHALATION SCH ×2 (07:33→19:35)
[2020-11-14] MEDS: ALBUTEROL NEBULIZED 2.5 MG/3 ML INHALATION PRN ×3 (07:34→19:35)
[2020-11-14 07:48] LABS: Basophils % (A) 0 %; Eosinophils # (A) 0.1 k/uL (0-0.7); Eosinophils % (A) 1 %; HCT 29.8 % (34.0-46.0); HGB 9.5 gm/dL (11.4-16.0); Hypochromasia Marked; Lymphocytes # (A) 1.7 k/uL (1.0-4.8); Lymphocytes % (A) 18 %; MCH 31.2 pg (25.0-35.0); MCHC 31.9 g/dL (31.0-37.0); MCV 97.9 fL (80.0-100.0); Macrocytosis Slight; Mean Platelet Volume 7.9; Monocytes # (A) 0.8 k/uL (0-1.0); Monocytes % (A) 8 %; Neutrophils # (A) 6.5 k/uL (1.3-7.7); Neutrophils % (A) 70 %; Platelet Count 321 k/uL (150-450); Poikilocytosis Moderate; RBC 3.04 m/uL (3.80-5.40); RDW 15.6 % (11.5-15.5); WBC 9.4 k/uL (3.8-10.6)
[2020-11-14 08:12] LABS: Calcium 8.2 mg/dL (8.4-10.2); Magnesium 2.2 mg/dL (1.6-2.3); Phosphorus 2.1 mg/dL (2.5-4.5); Potassium 3.7 mmol/L (3.5-5.1)
[2020-11-14] MEDS: PANTOPRAZOLE 40 MG/10 ML VIAL IVP SCH ×2 (08:56→20:12)
[2020-11-14] MEDS: PRAVASTATIN SODIUM 40 MG TAB PO SCH (08:56)
[2020-11-14] MEDS: cycloSPORINE 0.05% OPHTH 0.4 ML DROPERETTE BOTH EYES SCH ×2 (08:57→20:13)
--- NOTE | 2020-11-14 12:37 | P.PN ---
<Rashad Muñoz - Last Filed: 11/14/20 12:23> Subjective Progress Note Date: 11/14/20 Hospital course: Patient is a very pleasant 75-year-old female with a past medical history of h ypertension, hyperlipidemia, atrial fibrillation, and recent PE started on Eliquis, COPD, gastric ulcer, diverticular disease, and lower GI bleed with AV malformation. She presented to the emergency department on 11/12/20 with a chief complaint of syncopal episode. Patient reports since being started on anticoagulation she has been having black stools accompanied by progressive dizziness, lightheadedness, generalized weakness, and shortness of breath. Patient was found to have a hemoglobin of 6.5 with baseline hemoglobin of 12.9. Patient has received 2 units of PRBCs. She is currently admitted under our services with consultation to general surgery. Chest x-ray negative for acute cardiopulmonary process showing mild cardiomegaly. EKG showing junctional rhythm at 50 bpm, no noted T-wave or ST abnormalities. CT thoracic spine showing all of the lumbar and thoracic spondylitic changes with lower lumbar spinal stenosis, no acute fractures/compression fractures noted. General surge ry recommending patient undergoing endoscopy and colonoscopy once medically stable. Current hemoglobin stabilized at 9.5. Physical exam: Patient seen and fully evaluated at the bedside. She reports black stools have stopped. She states that she "just feels extremely weak and tired." She denies having any headache, lightheadedness, dizziness, changes in her vision or hearing, chest pain or palpitations, shortness of breath, dyspnea with exertion, abdominal pain or discomfort, nausea, vomiting, or experiencing any numbness/tingling/weakness in her extremities. General surgery following recommending endoscopy and colonoscopy once medically stable. Current hemoglobin stabilized at 9.5. Vital signs reviewed and stable. General: Nontoxic, no distress and appears stated age. Derm: Skin warm and dry, normal coloration for ethnicity. Head: Atraumatic, normocephalic and symmetric. Eyes: EOMs intact, no lid lag, and anicteric sclera Mouth: no lip lesions, mucus membranes moist Cardiovascular: Irregularly irregular rhythm with a controlled rate, no murmur, positive posterior tibial pulses bilaterally, and cap refill < 2 seconds. Lungs: Respirations even, regular, and unlabored on room air. Lungs CTA bilaterally, no rhonchi, no rales, no wheezing, and no accessory muscle usage. Abdominal: soft, nontender to palpation, no guarding, no appreciable organomegaly Ext: ROM intact. No gross muscle atrophy, no edema, no contractures Neuro: Speech clear, face symmetrical and CN II-XII grossly intact with no noted focal neuro deficits Psych: Alert and oriented to person, place, time, and situation. Appropriate and pleasant affect. Assessment and Plan of Care: Acute blood loss anemia likely secondary to treatment with Plavix and Eliquis in a patient with history of gastric ulcer and diverticular disease -Patient was found to have a hemoglobin of 6.5 upon arrival with baseline hemoglobin of 12.9. -Patient has received 2 units of PRBCs and currently hemoglobin stable at 9.5. -Plavix and Eliquis held at this time pending general surgery clearance. -Gen. surgery consulted, recommending patient undergoing endoscopy and colonoscopy once medically stable. -Protonix 40 mg IVP twice daily -NPO until cleared by general surgery -Continue gentle hydration with 0.9% normal saline at 100 mL's per hour. Hypotension in a patient with history of hypertension, hypotension likely secondary to acute blood loss anemia and has not resolved -Hold Lasix, hydrochlorothiazide, nadolol, and verapamil. -Monitor vital signs closely. Hyperlipidemia -Continue daily medication regimen with pravastatin. Atrial fibrillation with history of PE -Hold anticoagulation with Eliquis secondary to symptomatic acute blood loss anemia CODE STATUS: Full code DVT prophylaxis: SCDs Discussed with: Patient and RN Anticipated discharge date: Clinical course to determine Anticipated discharge place: Home A total of 45 minutes was spent on the care of this complex patient more than 50% of the time was spent in counseling and care coordination. Objective - Vital Signs Vital signs: Vital Signs Temp 98.4 F 11/14/20 04:00 Pulse 84 11/14/20 07:47 Resp 16 11/14/20 04:00 BP 140/80 11/14/20 04:00 Pulse Ox 96 11/14/20 04:00 Intake & Output 11/13/20 11/14/20 11/14/20 18:59 06:59 18:59 Intake Total 720 Balance 720 Weight 59.4 kg Intake: Oral 720 Other: Voiding Method Toilet Toilet # Voids 1 2 - Labs CBC & Chem 7: 11/14/20 07:30 11/14/20 07:30 Labs: Abnormal Lab Results - Last 24 Hours (Table) 11/14/20 Range/Units 07:30 RBC 3.04 L (3.80-5.40) m/uL Hgb 9.5 L (11.4-16.0) gm/dL Hct 29.8 L (34.0-46.0) % RDW 15.6 H (11.5-15.5) % <Rin Zacarias - Last Filed: 11/14/20 19:49> Subjective Patient seen and examined independently. Patient was also seen by Rashad Muñoz NP and case was discussed. I am in agreement with subjective, physical exam, assessment and plan as written above and amended below. Daughter present at bedside, she is unsure if her mother should go back on eliquis with hx of bleeding in the past and known AVM. Will consult heme/onc for further recs. Normal BM today General: non toxic, no distress, appears at stated age Derm: warm, dry Head: atraumatic, normocephalic, symmetric, [place] Eyes: EOMI, no lid lag, anicteric sclera Mouth: no lip lesion, mucus membranes moist Cardiovascular: S1S2 reg, no murmur, positive posterior tibial pulse bilateral, Lungs: CTA bilateral, no rhonchi, no rales , no accessory muscle use Abdominal: soft, nontender to palpation, no guarding, no appreciable organomegaly Objective - Vital Signs Vital signs: Vital Signs Temp 98.0 F 11/14/20 15:42 Pulse 73 11/14/20 19:44 Resp 19 11/14/20 15:42 BP 118/58 11/14/20 15:42 Pulse Ox 95 11/14/20 15:42 Intake & Output 11/14/20 11/14/20 11/15/20 06:59 18:59 06:59 Intake Total 480 Output Total 601 Balance -121 Weight 59.4 kg Intake: Oral 480 Output: Urine 600 Stool 1 Other: Voiding Method Toilet Toilet # Voids 2 2 # Bowel Movements 2 - Labs CBC & Chem 7: 11/14/20 07:30 11/14/20 07:30 Labs: Abnormal Lab Results - Last 24 Hours (Table) 11/14/20 11/14/20 Range/Units 07:30 07:30 RBC 3.04 L (3.80-5.40) m/uL Hgb 9.5 L (11.4-16.0) gm/dL Hct 29.8 L (34.0-46.0) % RDW 15.6 H (11.5-15.5) % Carbon Dioxide 32 H (22-30) mmol/L BUN 21 H (7-17) mg/dL Creatinine 1.08 H (0.52-1.04) mg/dL Glucose 105 H (74-99) mg/dL Calcium 8.2 L (8.4-10.2) mg/dL Phosphorus 2.1 L (2.5-4.5) mg/dL
--- NOTE | 2020-11-14 12:38 | P.PN ---
Subjective Progress Note Date: 11/14/20 CHIEF COMPLAINT: Anemia HISTORY OF PRESENT ILLNESS: Surgical service is following regards to patient's anemia. Patient had been having black tarry stools. She had been taking both Plavix and Eliquis. She had her watchman procedure in May. She was diagnosed with a PE earlier in October. Her stools are currently brown. She denies any abdominal pain. The Eliquis and Plavix have been discontinued. Patient also has a history of AVMs. Afebrile. Her hemoglobin is now 9.5. Her hemoglobin had been 6.5 up to 9.8 yesterday after 2 units of blood PHYSICAL EXAM: VITAL SIGNS: Reviewed GENERAL: Well-developed in no acute distress. HEENT: No sclera icterus. Extraocular movements grossly intact. Moist buccal mucosa. Head is atraumatic, normocephalic. Hears conversational speech. No nasal drai nage. NECK: Supple without lymphadenopathy. CHEST: Non-labored respirations and equal bilateral excursions. CARDIOVASCULAR: Palpable 2+ radial pulses. ABDOMEN: Soft. Nondistended. Nontender. MUSCULOSKELETAL: No clubbing or cyanosis. NEUROLOGIC: No focal or lateralizing signs. Cranial nerves II through XII grossly intact. PSYCH: Appropriate affect. Alert and oriented to person, place and time. SKIN: Well perfused. Good skin turgor. ASSESSMENT: 1. Acute blood loss anemia secondary to GI bleed. 2. History of arterial venous malformations 3. History of GI bleeds 4. History of PE 5. History of atrial fibrillation status post watchman procedure 6. Hypotension 7. Chronic back pain 8. Hyperlipidemia 9. Osteoarthritis 10. COPD 11. Hard of hearing PLAN: -Patient is tentatively scheduled for EGD today with Dr. Dan -Continue to hold Plavix and Eliquis -Keep patient nothing by mouth for possible EGD today -Continue to monitor hemoglobin -Continue to monitor for any signs or symptoms of bleeding Physician Collection Clerk note has been reviewed by physician. Signing provider agrees with the documented findings, assessment, and plan of care. Objective - Vital Signs Vital signs: Vital Signs Temp 98.4 F 11/14/20 11:34 Pulse 86 11/14/20 11:53 Resp 19 11/14/20 11:34 BP 148/68 11/14/20 11:34 Pulse Ox 98 07/26/21 11:34 Intake & Output 11/13/20 11/14/20 11/14/20 18:59 06:59 18:59 Intake Total 720 360 Output Total 601 Balance 720 -241 Weight 59.4 kg Intake: Oral 720 360 Output: Urine 600 Stool 1 Other: Voiding Method Toilet Toilet Toilet # Voids 1 2 1 # Bowel Movements 1 - Labs CBC & Chem 7: 11/14/20 07:30 11/14/20 07:30 Labs: Abnormal Lab Results - Last 24 Hours (Table) 11/14/20 11/14/20 Range/Units 07:30 07:30 RBC 3.04 L (3.80-5.40) m/uL Hgb 9.5 L (11.4-16.0) gm/dL Hct 29.8 L (34.0-46.0) % RDW 15.6 H (11.5-15.5) % Carbon Dioxide 32 H (22-30) mmol/L BUN 21 H (7-17) mg/dL Creatinine 1.08 H (0.52-1.04) mg/dL Glucose 105 H (74-99) mg/dL Calcium 8.2 L (8.4-10.2) mg/dL Phosphorus 2.1 L (2.5-4.5) mg/dL
[2020-11-14] MEDS: SODIUM CHLORIDE 0.9% 1,000 ML IV SCH ×2 (12:58→20:13)
[2020-11-14] MEDS: HYDROcodone/APAP 10-325MG 1 EACH TAB PO PRN ×2 (13:10→20:20)
[2020-11-14] MEDS: LATANOPROST 0.005% OPHTH DROPS 2.5 ML BTL BOTH EYES SCH (20:13)
[2020-11-15] MEDS: PRAVASTATIN SODIUM 40 MG TAB PO SCH (07:44)
[2020-11-15] MEDS: PANTOPRAZOLE 40 MG/10 ML VIAL IVP SCH ×2 (07:44→20:44)
[2020-11-15] MEDS: SODIUM CHLORIDE 0.9% 1,000 ML IV SCH ×2 (07:44→13:58)
[2020-11-15] MEDS: cycloSPORINE 0.05% OPHTH 0.4 ML DROPERETTE BOTH EYES SCH ×2 (07:48→20:51)
[2020-11-15] MEDS: HYDROcodone/APAP 10-325MG 1 EACH TAB PO PRN ×2 (08:15→20:43)
[2020-11-15] MEDS: BACLOFEN 10 MG TAB PO PRN ×2 (08:16→20:44)
[2020-11-15] MEDS: ALBUTEROL NEBULIZED 2.5 MG/3 ML INHALATION PRN ×3 (08:34→20:25)
[2020-11-15] MEDS: SYMBICORT 160-4.5 MCG INHALER INHALATION SCH ×2 (08:34→20:25)
[2020-11-15 09:34] LABS: HCT 28.4 % (34.0-46.0); HGB 8.9 gm/dL (11.4-16.0); Hypochromasia Marked; MCH 30.8 pg (25.0-35.0); MCHC 31.3 g/dL (31.0-37.0); MCV 98.6 fL (80.0-100.0); Macrocytosis Slight; Mean Platelet Volume 7.8; Platelet Count 263 k/uL (150-450); Poikilocytosis Moderate; RBC 2.88 m/uL (3.80-5.40); RDW 15.5 % (11.5-15.5); WBC 7.2 k/uL (3.8-10.6)
[2020-11-15 09:52] LABS: African American GFR (CKD) >90 (>60 ml/min/1.73 sqM); Anion Gap 4 mmol/L; Blood Urea Nitrogen 12 mg/dL (7-17); Calcium 8.2 mg/dL (8.4-10.2); Carbon Dioxide 29 mmol/L (22-30); Chloride 107 mmol/L (98-107); Glucose 92 mg/dL (74-99); Non-African American GFR(CKD) 82 (>60 ml/min/1.73 sqM); Potassium 3.7 mmol/L (3.5-5.1); Sodium 140 mmol/L (137-145)
--- NOTE | 2020-11-15 10:01 | P.PN ---
<Rashad Muñoz - Last Filed: 11/15/20 11:37> Subjective Progress Note Date: 11/15/20 Hospital course: Patient is a very pleasant 75-year-old female with a past medical history of h ypertension, hyperlipidemia, atrial fibrillation, and recent PE started on Eliquis, COPD, gastric ulcer, diverticular disease, and lower GI bleed with AV malformation. She presented to the emergency department on 11/12/20 with a chief complaint of syncopal episode. Patient reports since being started on anticoagulation she has been having black stools accompanied by progressive dizziness, lightheadedness, generalized weakness, and shortness of breath. Patient was found to have a hemoglobin of 6.5 with baseline hemoglobin of 12.9. Patient has received 2 units of PRBCs. She is currently admitted under our services with consultation to general surgery. Chest x-ray negative for acute cardiopulmonary process showing mild cardiomegaly. EKG showing junctional rhythm at 50 bpm, no noted T-wave or ST abnormalities. CT thoracic spine showing all of the lumbar and thoracic spondylitic changes with lower lumbar spinal stenosis, no acute fractures/compression fractures noted. General surge ry planning to take patient for colonoscopy and endoscopy tomorrow morning. Physical exam: Patient seen and fully evaluated at the bedside. She reports feeling a little better today, she denies any further episodes of black stools. Hemoglobin remained stable at 8.9. Patient denies having any headache, lightheadedness, dizziness, changes in her vision or hearing, chest pain or palpitations, shortness of breath, dyspnea with exertion, abdominal pain or discomfort, nausea, vomiting, or experiencing any numbness/tingling/weakness in her extremities. General surgery planning to take patient for endoscopy and colonoscopy tomorrow morning. Vital signs reviewed and stable. General: Nontoxic, no distress and appears stated age. Derm: Skin warm and dry, normal coloration for ethnicity. Head: Atraumatic, normocephalic and symmetric. Eyes: EOMs intact, no lid lag, and anicteric sclera Mouth: no lip lesions, mucus membranes moist Cardiovascular: Irregularly irregular rhythm with a controlled rate, no murmur, positive posterior tibial pulses bilaterally, and cap refill < 2 seconds. Lungs: Respirations even, regular, and unlabored on room air. Lungs CTA bilaterally, no rhonchi, no rales, no wheezing, and no accessory muscle usage. Abdominal: soft, nontender to palpation, no guarding, no appreciable organomegaly Ext: ROM intact. No gross muscle atrophy, no edema, no contractures Neuro: Speech clear, face symmetrical and CN II-XII grossly intact with no noted focal neuro deficits Psych: Alert and oriented to person, place, time, and situation. Appropriate and pleasant affect. Assessment and Plan of Care: Acute blood loss anemia likely secondary to treatment with Plavix and Eliquis in a patient with history of gastric ulcer and diverticular disease -Patient was found to have a hemoglobin of 6.5 upon arrival with baseline hemoglobin of 12.9. -Patient has received 2 units of PRBCs and currently hemoglobin stable at 8.9 -Plavix and Eliquis held at this time pending general surgery clearance. -Gen. surgery planning to take patient for endoscopy and colonoscopy tomorrow morning. -Protonix 40 mg IVP twice daily -Continue gentle hydration with 0.9% normal saline at 100 mL's per hour. Hypotension in a patient with history of hypertension, hypotension likely secondary to acute blood loss anemia and has not resolved -Hold Lasix, hydrochlorothiazide, nadolol, and verapamil. -Monitor vital signs closely. Hyperlipidemia -Continue daily medication regimen with pravastatin. Atrial fibrillation with history of PE -Hold anticoagulation with Eliquis secondary to symptomatic acute blood loss anemia History of coronary artery disease -Hold Plavix until cleared by general surgery to resume. CODE STATUS: Full code DVT prophylaxis: SCDs Discussed with: Patient and RN Anticipated discharge date: Clinical course to determine Anticipated discharge place: Home A total of 45 minutes was spent on the care of this complex patient more than 50% of the time was spent in counseling and care coordination. Objective - Vital Signs Vital signs: Vital Signs Temp 98.2 F 11/15/20 08:00 Pulse 73 11/15/20 08:44 Resp 18 11/15/20 08:00 BP 162/75 11/15/20 08:00 Pulse Ox 92 L 11/15/20 08:00 Intake & Output 11/14/20 11/15/20 11/15/20 18:59 06:59 18:59 Intake Total 480 480 Output Total 601 400 200 Balance -121 80 -200 Weight 55.7 kg Intake: Oral 480 480 Output: Urine 600 400 200 Stool 1 Other: Voiding Method Toilet Toilet Toilet # Voids 2 # Bowel Movements 2 - Labs CBC & Chem 7: 11/15/20 08:20 11/15/20 08:20 Labs: Abnormal Lab Results - Last 24 Hours (Table) 11/15/20 11/15/20 Range/Units 08:20 08:20 RBC 2.88 L (3.80-5.40) m/uL Hgb 8.9 L (11.4-16.0) gm/dL Hct 28.4 L (34.0-46.0) % Calcium 8.2 L (8.4-10.2) mg/dL <Rin Zacarias - Last Filed: 11/15/20 19:34> Subjective Rashad Muñoz NP rendered care for this patient independently, reviewed the findings and plan as documented in the note above. I did not physically speak with or examine the patient on this date. Patient with elevated blood pressures. Stop IV fluids, start nadolol and verapamil from home. Await oncology recommendations regarding resumption of Eliquis. Objective - Vital Signs Vital signs: Vital Signs Temp 98.3 F 11/15/20 16:00 Pulse 76 11/15/20 16:00 Resp 18 11/15/20 16:00 BP 188/84 11/15/20 16:53 Pulse Ox 96 11/15/20 16:00 Intake & Output 11/15/20 11/15/20 11/16/20 06:59 18:59 06:59 Intake Total 480 2860 Output Total 400 200 Balance 80 2660 Weight 55.7 kg Intake: IV 1200 Sodium Chloride 0.9% 1, 1200 000 ml @ 100 mls/hr IV . Q10H [facility] Rx#:[id number] Oral 480 1660 Output: Urine 400 200 Other: Voiding Method Toilet Toilet - Labs CBC & Chem 7: 11/15/20 17:39 11/15/20 08:20 Labs: Abnormal Lab Results - Last 24 Hours (Table) 11/15/20 11/15/20 11/15/20 Range/Units 08:20 08:20 17:39 RBC 2.88 L 3.19 L (3.80-5.40) m/uL Hgb 8.9 L 10.2 L (11.4-16.0) gm/dL Hct 28.4 L 31.6 L (34.0-46.0) % Calcium 8.2 L (8.4-10.2) mg/dL
[2020-11-15] MEDS ORDERED: LIDOCAINE 1% (10MG/ML) FOR IV START INTRADERMA PRN (11:07)
[2020-11-15] MEDS ORDERED: PEG 3350-NA SULF,BICARB,CL/KCL 4,000 ML BOTTLE PO ONE (11:39)
--- NOTE | 2020-11-15 12:57 | P.PN ---
Subjective Progress Note Date: 11/15/20 CHIEF COMPLAINT: Anemia HISTORY OF PRESENT ILLNESS: Surgical service is following regards to patient's anemia. Patient had been having black tarry stools. She had been taking both Plavix and Eliquis. She had her watchman procedure in May. She was diagnosed with a PE earlier in October. Her last bowel movement was on Saturday. She reports that it was brown in color. She denies any abdominal pain. The Eliquis and Plavix have been discontinued. Patient also has a history of AVMs. Afebrile. WBC 7.2 hemoglobin has dropped from 9.5-8.9 PHYSICAL EXAM: VITAL SIGNS: Reviewed GENERAL: Well-developed in no acute distress. HEENT: No sclera icterus. Extraocular movements grossly intact. Moist buccal mucosa. Head is atraumatic, normocephalic. Hears conversational speech. No nasal drainage. NECK: Supple without lymphadenopathy. CHEST: Non-labored respirations and equal bilateral excursions. CARDIOVASCULAR: Palpable 2+ radial pulses. ABDOMEN: Soft. Nondistended. Nontender. MUSCULOSKELETAL: No clubbing or cyanosis. NEUROLOGIC: No focal or lateralizing signs. Cranial nerves II through XII grossly intact. PSYCH: Appropriate affect. Alert and oriented to person, place and time. SKIN: Well perfused. Good skin turgor. ASSESSMENT: 1. Acute blood loss anemia secondary to GI bleed. 2. History of arterial venous malformations 3. History of GI bleeds 4. History of PE 5. History of atrial fibrillation status post watchman procedure 6. Hypotension 7. Chronic back pain 8. Hyperlipidemia 9. Osteoarthritis 10. COPD 11. Hard of hearing PLAN: -Patient is scheduled for EGD and colonoscopy for tomorrow, 11/16/[address] Dan -Continue to hold Plavix and Eliquis -Start clear liquid diet -Start GoLYTELY prep -Nothing by mouth after midnight -Continue to monitor hemoglobin -Continue to monitor for any signs or symptoms of bleeding Physician Molding Plasterer note has been reviewed by physician. Signing provider agrees with the documented findings, assessment, and plan of care. Objective - Vital Signs Vital signs: Vital Signs Temp 97.7 F 11/15/20 11:42 Pulse 80 11/15/20 11:50 Resp 18 11/15/20 11:42 BP 165/85 11/15/20 11:42 Pulse Ox 95 11/15/20 11:42 Intake & Output 11/14/20 11/15/20 11/15/20 18:59 06:59 18:59 Intake Total 480 480 Output Total 601 400 200 Balance -121 80 -200 Weight 55.7 kg Intake: Oral 480 480 Output: Urine 600 400 200 Stool 1 Other: Voiding Method Toilet Toilet Toilet # Voids 2 # Bowel Movements 2 - Labs CBC & Chem 7: 11/15/20 08:20 11/15/20 08:20 Labs: Abnormal Lab Results - Last 24 Hours (Table) 11/15/20 11/15/20 Range/Units 08:20 08:20 RBC 2.88 L (3.80-5.40) m/uL Hgb 8.9 L (11.4-16.0) gm/dL Hct 28.4 L (34.0-46.0) % Calcium 8.2 L (8.4-10.2) mg/dL
[2020-11-15] MEDS ORDERED: MAGNESIUM HYDROXIDE 2,400 MG/10 ML CUP PO ONE (13:33)
--- NOTE | 2020-11-15 14:58 | P.CONS ---
History of Present Illness - Reason for Consult Consult date: 11/15/20 PE diagnosed about 3 weeks ago, GI bleed Requesting physician: Rin Zacarias - Chief Complaint Syncopy - History of Present Illness Mrs. Naqvi is a very pleasant 75-year-old female who reads lips presenting to the hospital after "seeing spots" and family reporting blacking out very briefly after eating lunch. Hx of cardiac disease, on antiplatelet therapy aspirin and Plavix. Hx of GI bleeding. Earlier this month patient was diagnosed with a pulmonary embolism. CTA was done 10/20/20 for complaints of shortness of breath and elevated d-dimer. Small stable pericardial effusion, upper esophagus was distended with some mild mid esophageal wall diffuse thickening. No bone lesions. Filling defect in the left lower lobe pulmonary artery, documented appears worse when compared to a prior study, concerning for acute/acute on chronic nonocclusive PE. She has been on eliquis for a few weeks. She states she had some black stool for a few days and figured it was a side effect of the medication. She had a bowel movement on Saturday that was normal in color. She denied any other bleeding, she has no history of blood problems, clotting disorders, cancer. She denies recent illness, nausea, vomiting, indigestion or heartburn, acute changes in bowel or bladder habits, unusual swelling or pain. Review of Systems 10 point review of systems is negative except as stated in HPI Past Medical History Past Medical History: Atrial Fibrillation, Asthma, COPD, GERD/Reflux, GI Bleed, Hyperlipidemia, Hypertension, Osteoarthritis (OA), Pneumonia, Vascular Disorder Additional Past Medical History / Comment(s): [place], Bronchitis, gastric ulcer, diverticular disease, lower GI bleed/AV malformation with ablation, benign colon polyp, borderline hyperlipidemia, arthritis mostly in back, slight bilateral glaucoma, varicosities. History of Any Multi-Drug Resistant Organisms: None Reported Past Surgical History: Adenoidectomy, Appendectomy, Heart Catheterization, Hysterectomy, Tonsillectomy, Tubal Ligation Additional Past Surgical History / Comment(s): Colonoscopy/benign polypectomy/AV malformation ablation, bilateral cataract removals, watchmen procedure Past Anesthesia/Blood Transfusion Reactions: No Reported Reaction Additional Past Anesthesia/Blood Transfusion Reaction / Comm: never recieved blood before. Past Psychological History: No Psychological Hx Reported Smoking Status: Never smoker, Second hand smoke exposure Past Alcohol Use History: None Reported Past Drug Use History: None Reported - Past Family History Father Family Medical History: COPD Additional Family Medical History / Comment(s): EMPHYSEMA Mother Family Medical History: Osteoarthritis (OA) Additional Family Medical History / Comment(s): EMPHYSEMA, BOWEL OBSTRUCTION/COLOSTOMY Medications and Allergies Home Medications Medication Instructions Recorded Confirmed Type Baclofen [Lioresal] 10 mg PO TID PRN 07/20/15 11/12/20 History Moexipril [Univasc] 7.5 mg PO DAILY 07/20/15 11/12/20 History Pravastatin Sodium [Pravachol] 40 mg PO DAILY 07/20/15 11/12/20 History Latanoprost [Xalatan 0.005%] 2 drop BOTH EYES HS 10/15/16 11/12/20 History Nadolol 40 mg PO DAILY 10/15/16 11/12/20 History Albuterol Nebulized [Ventolin 2.5 mg INHALATION RT-TID PRN 08/11/17 11/12/20 History Nebulized] Budesonide/Formoterol Fumarate 2 puff INHALATION RT-BID 08/11/17 11/12/20 Hist ory [Symbicort 160-4.5 Mcg Inhaler] Albuterol Inhaler [Ventolin Hfa 1 puff INHALATION RT-QID PRN 12/03/19 11/12/20 History Inhaler] Denosumab [Prolia] 60 mg SQ Q180D 04/06/20 11/12/20 History Diclofenac Sodium [Voltaren Gel] 2 gram TOPICAL BID PRN 04/06/20 11/12/20 History Omeprazole 20 mg PO DAILY 06/25/20 11/12/20 History Aspirin EC [Ecotrin Low Dose] 81 mg PO DAILY 08/07/20 11/12/20 History Clopidogrel Bisulfate [Plavix] 75 mg PO DAILY 08/07/20 11/12/20 History Umeclidinium [place] [Incruse 1 puff INHALATION RT-DAILY 08/07/20 11/12/20 History Ellipta] Verapamil HCl [Verapamil ER] 240 mg PO DAILY 08/07/20 11/12/20 History cycloSPORINE 0.05% OPHTH SOLN 1 drop BOTH EYES BID 08/07/20 11/12/20 History [Restasis] hydroCHLOROthiazide [Hydrodiuril] 12.5 mg PO DAILY 08/07/20 11/12/20 History Furosemide [Lasix] 20 mg PO DAILY 30 Days #30 tab 08/09/20 11/12/20 Rx Magnesium Oxide [Magox 400] 400 mg PO DAILY 30 Days #30 tablet 08/09/20 11/12/20 Rx Apixaban [Eliquis] 5 mg PO BID 11/12/20 11/12/20 History HYDROcodone/APAP 10-325MG [[place] 1 tab PO BID PRN 11/12/20 11/12/20 History 10-325] Allergies Allergy/AdvReac Type Severity Reaction Status Date / Time No Known Allergies Allergy Verified 11/12/20 19:05 Physical Exam Vitals: Vital Signs Temp Pulse Pulse Resp BP Pulse Ox 11/15/20 11:50 80 11/15/20 11:42 97.7 F 77 18 165/85 95 11/15/20 11:40 76 11/15/20 08:44 73 11/15/20 08:35 70 11/15/20 08:00 98.2 F 70 18 162/75 92 L 11/15/20 00:00 75 18 150/69 93 L 11/14/20 20:00 97.9 F 74 18 169/78 96 11/14/20 19:44 73 11/14/20 19:35 71 11/14/20 15:42 98.0 F 73 19 118/58 95 Intake and Output 11/14/20 11/15/20 11/15/20 22:59 06:59 14:59 Intake Total 120 480 Output Total 400 200 Balance 120 80 -200 Intake: Oral 120 480 Output: Urine 400 200 Other: Voiding Method Toilet Toilet Toilet # Voids 2 # Bowel Movements 2 Weight 55.7 kg - Constitutional General appearance: average body habitus, cooperative, no acute distress - EENT reads lips Eyes: anicteric sclerae, EOMI, dentition normal ENT: normal oropharynx - Neck Neck: no lymphadenopathy - Respiratory Respiratory: bilateral: CTA - Cardiovascular Rhythm: regular Heart sounds: normal: S1, S2 Abnormal Heart Sounds: systolic murmur leg Peripheral Edema: bilateral: None - Gastrointestinal General gastrointestinal: no absent bowel sounds, no decreased bowel sounds, no distended, no hepatomegaly, no hyperactive bowel sounds, normal bowel sounds, no organomegaly, no rigid, no scaphoid, soft, no splenomegaly, no tenderness, no umbilical hernia, no ventral hernia - Integumentary Integumentary: normal turgor - Neurologic cranial nerves grossly intact - Musculoskeletal Musculoskeletal: strength equal bilaterally - Psychiatric Psychiatric: A&O x's 3, appropriate affect, intact judgment & insight Results CBC & Chem 7: 11/15/20 08:20 11/15/20 08:20 Labs: Abnormal Lab Results - Last 24 Hours (Table) 11/15/20 11/15/20 Range/Units 08:20 08:20 RBC 2.88 L (3.80-5.40) m/uL Hgb 8.9 L (11.4-16.0) gm/dL Hct 28.4 L (34.0-46.0) % Calcium 8.2 L (8.4-10.2) mg/dL Chest x-ray: report reviewed CT scan - chest: report reviewed Assessment and Plan (1) Pulmonary embolism Narrative/Plan: Diagnosed 10/20/20. On chart review no provoking factor identified at that time. Patient doesn't recall any prolonged immobility, travel or injury at that time. She was on eliquis. Unfortunately, significant drop in hemoglobin with s ubjective and objective evidence of gastrointestinal bleed, patient has a history of GI bleeding. Endoscopy, upper and lower scheduled for tomorrow. Reviewed Cardiology notes, it appears that aspirin and Plavix can be stopped so, this can reduce the risk of bleeding. Based on endoscopy findings, such as a large ulcer or large area suspicious for bleeding, that can be treated, anticoagulation could be resumed with close hemoglobin monitoring. If nothing is found to treat that could account for large blood loss such as patient had, then she would have to remain off of anticoagulation and IVC would be recommended. If she has source of bleeding that requires healing time, IVC would have to be placed until time to heal then trial anticoagulation. Recommendation is for retrievable IVC filter placement due to acute PE and inability to be on anticoagulation at this time-too many variables that could prevent or delay her form being placed back on anticoagulation in a short period of time. Case discussed with Vascular STOCK WORKER Doppler of BLE requested for baseline. Current Visit: Yes Status: Acute Priority: High Code(s): I26.99 - OTHER PULMONARY EMBOLISM WITHOUT ACUTE COR PULMONALE SNOMED Code(s): 71041646 (2) Symptomatic anemia Narrative/Plan: Patient is status post 2 units of packed red blood cells with anticipated increase in hemoglobin. Continue to monitor CBC. Current Visit: Yes Status: Acute Priority: High Code(s): D64.9 - ANEMIA, UNSPECIFIED SNOMED Code(s): 742643450 (3) GI bleeding Narrative/Plan: History of the same and acute bleed. Endoscopy planned. Current Visit: Yes Status: Acute Priority: High Code(s): K92.2 - GASTROINTESTINAL HEMORRHAGE, UNSPECIFIED SNOMED Code(s): 30040557 Time with Patient: Greater than 30
[2020-11-15] MEDS: LACTATED RINGERS 1,000 ML IV SCH (17:38)
[2020-11-15 18:04] LABS: HCT 31.6 % (34.0-46.0); HGB 10.2 gm/dL (11.4-16.0); Hypochromasia Marked; MCH 31.9 pg (25.0-35.0); MCHC 32.2 g/dL (31.0-37.0); MCV 99.2 fL (80.0-100.0); Macrocytosis Slight; Mean Platelet Volume 8.3; Platelet Count 300 k/uL (150-450); Poikilocytosis Moderate; RBC 3.19 m/uL (3.80-5.40); RDW 15.4 % (11.5-15.5)
[2020-11-15] MEDS: LATANOPROST 0.005% OPHTH DROPS 2.5 ML BTL BOTH EYES SCH (20:47)
[2020-11-16 07:25] LABS: HCT 28.1 % (34.0-46.0); Hypochromasia Marked; MCH 31.9 pg (25.0-35.0); MCHC 32.2 g/dL (31.0-37.0); Macrocytosis Slight; Platelet Count 261 k/uL (150-450); Poikilocytosis Moderate; RBC 2.84 m/uL (3.80-5.40); RDW 15.4 % (11.5-15.5); WBC 6.9 k/uL (3.8-10.6)
[2020-11-16 07:37] LABS: African American GFR (CKD) >90 (>60 ml/min/1.73 sqM); Anion Gap 4 mmol/L; Blood Urea Nitrogen 7 mg/dL (7-17); Calcium 8.1 mg/dL (8.4-10.2); Carbon Dioxide 29 mmol/L (22-30); Chloride 107 mmol/L (98-107); Glucose 79 mg/dL (74-99); Non-African American GFR(CKD) 88 (>60 ml/min/1.73 sqM); Potassium 3.5 mmol/L (3.5-5.1); Sodium 140 mmol/L (137-145)
--- NOTE | 2020-11-16 07:55 | P.GSCN ---
History of Present Illness Consult date: 11/15/20 Reason for Consult: Need for IVC filter History of present illness: 75-year-old female presented to the hospital after family reporting blacking out very briefly after eating lunch. Hx of cardiac disease, on antiplatelet therapy aspirin and Plavix. Hx of GI bleeding. Earlier this month patient was diagnosed with a pulmonary embolism. CTA was done 10/20/20 for complaints of shortness of breath and elevated d-dimer and was placed on oral anticoagulation Eliquis at that time. She states she after this time having some black stool for a few days and figured it was a side effect of the medication. She states every time she is on any type of blood thinner or antiplatelet she has dark stools or blood per rectum. She denies recent illness, nausea, vomiting, indigestion or heartburn, acute changes in bowel or bladder habits, unusual sw elling or pain. Currently being prepped for colonoscopy which is scheduled for tomorrow. Review of Systems All systems: negative (what is mentioned in the pmh or HPI) Past Medical History Past Medical History: Atrial Fibrillation, Asthma, COPD, GERD/Reflux, GI Bleed, Hyperlipidemia, Hypertension, Osteoarthritis (OA), Pneumonia, Vascular Disorder Additional Past Medical History / Comment(s): [place], Bronchitis, gastric ulcer, diverticular disease, lower GI bleed/AV malformation with ablation, benign colon polyp, borderline hyperlipidemia, arthritis mostly in back, slight bilateral glaucoma, varicosities. History of Any Multi-Drug Resistant Organisms: None Reported Past Surgical History: Adenoidectomy, Appendectomy, Heart Catheterization, Hysterectomy, Tonsillectomy, Tubal Ligation Additional Past Surgical History / Comment(s): Colonoscopy/benign polypectomy/AV malformation ablation, bilateral cataract removals, watchmen procedure Past Anesthesia/Blood Transfusion Reactions: No Reported Reaction Additional Past Anesthesia/Blood Transfusion Reaction / Comm: never recieved blood before. Past Psychological History: No Psychological Hx Reported Smoking Status: Never smoker, Second hand smoke exposure Past Alcohol Use History: None Reported Past Drug Use History: None Reported - Past Family History Father Family Medical History: COPD Additional Family Medical History / Comment(s): EMPHYSEMA Mother Family Medical History: Osteoarthritis (OA) Additional Family Medical History / Comment(s): EMPHYSEMA, BOWEL OBSTRUCTION/ COLOSTOMY Medications and Allergies Home Medications Medication Instructions Recorded Confirmed Type Baclofen [Lioresal] 10 mg PO TID PRN 07/20/15 11/12/20 History Moexipril [Univasc] 7.5 mg PO DAILY 07/20/15 11/12/20 History Pravastatin Sodium [Pravachol] 40 mg PO DAILY 07/20/15 11/12/20 History Latanoprost [Xalatan 0.005%] 2 drop BOTH EYES HS 10/15/16 11/12/20 History Nadolol 40 mg PO DAILY 10/15/16 11/12/20 History Albuterol Nebulized [Ventolin 2.5 mg INHALATION RT-TID PRN 08/11/17 11/12/20 History Nebulized] Budesonide/Formoterol Fumarate 2 puff INHALATION RT-BID 08/11/17 11/12/20 History [Symbicort 160-4.5 Mcg Inhaler] Albuterol Inhaler [Ventolin Hfa 1 puff INHALATION RT-QID PRN 12/03/19 11/12/20 History Inhaler] Denosumab [Prolia] 60 mg SQ Q180D 04/06/20 11/12/20 History Diclofenac Sodium [Voltaren Gel] 2 gram TOPICAL BID PRN 04/06/20 11/12/20 History Omeprazole 20 mg PO DAILY 06/25/20 11/12/20 History Aspirin EC [Ecotrin Low Dose] 81 mg PO DAILY 08/07/20 11/12/20 History Clopidogrel Bisulfate [Plavix] 75 mg PO DAILY 08/07/20 11/12/20 History Umeclidinium [place] [Incruse 1 puff INHALATION RT-DAILY 08/07/20 11/12/20 History Ellipta] Verapamil HCl [Verapamil ER] 240 mg PO DAILY 08/07/20 11/12/20 History cycloSPORINE 0.05% OPHTH SOLN 1 drop BOTH EYES BID 08/07/20 11/12/20 History [Restasis] hydroCHLOROthiazide [Hydrodiuril] 12.5 mg PO DAILY 08/07/20 11/12/20 History Furosemide [Lasix] 20 mg PO DAILY 30 Days #30 tab 08/09/20 11/12/20 Rx Magnesium Oxide [Magox 400] 400 mg PO DAILY 30 Days #30 tablet 08/09/20 11/12/20 Rx Apixaban [Eliquis] 5 mg PO BID 11/12/20 11/12/20 History HYDROcodone/APAP 10-325MG [[place] 1 tab PO BID PRN 11/12/20 11/12/20 History 10-325] Allergies Allergy/AdvReac Type Severity Reaction Status Date / Time No Known Allergies Allergy Verified 11/12/20 19:05 Surgical - Exam Vital Signs Temp Pulse Resp BP Pulse Ox 97.7 F 49 L 14 64/39 100 11/12/20 15:08 11/12/20 15:08 11/12/20 15:08 11/12/20 15:08 11/12/20 15:08 - General well developed, well nourished, no distress - Eyes PERRL - Cardiovascular Rhythm: regularly irregular - Abdomen Abdomen: soft, non tender - Psychiatric oriented to time, oriented to person, oriented to place Results - Labs 11/16/20 06:01 11/16/20 06:01 Abnormal Lab Results - Last 24 Hours (Table) 11/15/20 11/15/20 11/15/20 Range/Units 08:20 08:20 17:39 RBC 2.88 L 3.19 L (3.80-5.40) m/uL Hgb 8.9 L 10.2 L (11.4-16.0) gm/dL Hct 28.4 L 31.6 L (34.0-46.0) % Calcium 8.2 L (8.4-10.2) mg/dL 11/16/20 11/16/20 Range/Units 06:01 06:01 RBC 2.84 L (3.80-5.40) m/uL Hgb 9.0 L (11.4-16.0) gm/dL Hct 28.1 L (34.0-46.0) % Calcium 8.1 L (8.4-10.2) mg/dL Diabetes panel 11/15/20 11/16/20 Range/Units 08:20 06:01 Sodium 140 140 (137-145) mmol/L Potassium 3.7 3.5 (3.5-5.1) mmol/L Chloride 107 107 (98-107) mmol/L Carbon Dioxide 29 29 (22-30) mmol/L BUN 12 7 (7-17) mg/dL Creatinine 0.72 0.61 (0.52-1.04) mg/dL Glucose 92 79 (74-99) mg/dL Calcium 8.2 L 8.1 L (8.4-10.2) mg/dL Calcium panel 11/15/20 11/16/20 Range/Units 08:20 06:01 Calcium 8.2 L 8.1 L (8.4-10.2) mg/dL Pituitary panel 11/15/20 11/16/20 Range/Units 08:20 06:01 Sodium 140 140 (137-145) mmol/L Potassium 3.7 3.5 (3.5-5.1) mmol/L Chloride 107 107 (98-107) mmol/L Carbon Dioxide 29 29 (22-30) mmol/L BUN 12 7 (7-17) mg/dL Creatinine 0.72 0.61 (0.52-1.04) mg/dL Glucose 92 79 (74-99) mg/dL Calcium 8.2 L 8.1 L (8.4-10.2) mg/dL Adrenal panel 11/15/20 11/16/20 Range/Units 08:20 06:01 Sodium 140 140 (137-145) mmol/L Potassium 3.7 3.5 (3.5-5.1) mmol/L Chloride 107 107 (98-107) mmol/L Carbon Dioxide 29 29 (22-30) mmol/L BUN 12 7 (7-17) mg/dL Creatinine 0.72 0.61 (0.52-1.04) mg/dL Glucose 92 79 (74-99) mg/dL Calcium 8.2 L 8.1 L (8.4-10.2) mg/dL Assessment and Plan Assessment: 1. Melena possible GIB 2. History of PE on anticoagulation 3. Symptomatic anemia Plan: Await colonoscopy results. Discussed with family options including continued anticoagulation if no bleeding. If unable to take OAC then will need IVC filter placement which can be placed tomorrow or later this week. Will follow.
[2020-11-16] MEDS ORDERED: METOPROLOL TARTRATE 5 MG/5 ML VIAL IVP PRN (08:26)
[2020-11-16] MEDS: ALBUTEROL NEBULIZED 2.5 MG/3 ML INHALATION PRN ×2 (08:54→20:11)
[2020-11-16] MEDS: SYMBICORT 160-4.5 MCG INHALER INHALATION SCH ×2 (08:54→20:11)
[2020-11-16] MEDS: PANTOPRAZOLE 40 MG/10 ML VIAL IVP SCH ×2 (09:28→20:41)
[2020-11-16] MEDS: PRAVASTATIN SODIUM 40 MG TAB PO SCH ×2 (09:36→17:32)
[2020-11-16] MEDS: VERAPAMIL SR 240 MG TABLET.ER PO SCH ×2 (09:36→17:32)
[2020-11-16] MEDS: LACTATED RINGERS 1,000 ML IV SCH (11:25)
[2020-11-16] MEDS: cycloSPORINE 0.05% OPHTH 0.4 ML DROPERETTE BOTH EYES SCH ×2 (11:25→20:42)
[2020-11-16] MEDS ORDERED: LIDOCAINE 1% INJ 10MG/ML (20 ML MDV) ONE (12:12)
[2020-11-16] MEDS ORDERED: PROPOFOL 10 MG/ML 20 ML VIAL IV ONE (12:12)
--- NOTE | 2020-11-16 12:20 | US ---
EXAMINATION TYPE: US venous doppler duplex LE BI DATE OF EXAM: 11/16/2020 8:23 AM COMPARISON: NONE CLINICAL HISTORY: pulmonary embolism, baseline exam. SIDE PERFORMED: Bilateral TECHNIQUE: The lower extremity deep venous system is examined utilizing real time linear array sonog rupal with graded compression, doppler sonography and color-flow sonography. VESSELS IMAGED: Common Femoral Vein Deep Femoral Vein Greater Saphenous Vein * Femoral Vein Popliteal Vein Small Saphenous Vein * Proximal Calf Veins (* superficial vessels) Right Leg: Negative for DVT Left Leg: Negative for DVT IMPRESSION: No evidence of DVT.
[2020-11-16] MEDS ORDERED: IV FLUID CONTINUATION 1,000 ML IV ONE (12:38)
--- NOTE | 2020-11-16 12:46 | P.PCN ---
Date of Procedure: 11/16/20 Description of Procedure: PREOPERATIVE DIAGNOSIS: Symptomatic anemia History of gastrointestinal bleeding History of antiplatelet therapy History of chronic anticoagulation POSTOPERATIVE DIAGNOSIS: Symptomatic anemia History of gastrointestinal bleeding History of antiplatelet therapy History of chronic anticoagulation OPERATION: Esophagogastroduodenoscopy SURGEON: Anyi Dan MD ANESTHESIA: MAC. INDICATIONS: The patient is a 75-year-old female who presents symptomatic anemia, hemoglobin less than 7.0 and history of gastrointestinal bleeding. Benefits and risks of the procedure were described. Informed consent was obtained. DESCRIPTION: The patient was brought into the endoscopy suite and laid in the left lateral decubitus position. An Olympus gastroscope was passed along the posterior oropharynx down to the distal esophagus where the squamocolumnar junction was encountered at 37 cm from the incisors. The stomach was entered and no bile reflux was found. Additional findings are listed below. The first through third portion of the duodenum was examined and unremarkable. Retroflexion of the scope confirmed Hill grade 2 lower esophageal valve. The squamocolumnar junction demonstrated LA grade A erosive esophagitis. The stomach was desufflated. The patient tolerated the procedure well. FINDINGS: Squamocolumnar junction 37 cm from the incisors. Diaphragmatic hiatus at 37 cm. Hill grade 2 lower esophageal valve. LA grade A erosive esophagitis. No active duodenitis. No active bleeding with scope advanced to 90 cm from the incisors No gastric ulcers No active gastritis No duodenal ulcers RECOMMENDATIONS: Upper endoscopy as needed.
--- NOTE | 2020-11-16 12:49 | P.PCN ---
Date of Procedure: 11/16/20 Description of Procedure: PREOPERATIVE DIAGNOSIS: Symptomatic anemia History of gastrointestinal bleeding History of antiplatelet therapy History of chronic anticoagulation POSTOPERATIVE DIAGNOSIS: Symptomatic anemia History of gastrointestinal bleeding History of antiplatelet therapy History of chronic anticoagulation Sigmoid colitis with recent bleeding OPERATION: Colonoscopy to the cecum, ileocecal valve and appendiceal orifice. SURGEON: Anyi Dan MD. ANESTHESIA: MAC. INDICATIONS: The patient is a 75-year-old female who presents for colonoscopy screening. Benefits and risks were described and informed consent was obtained. DESCRIPTION OF PROCEDURE: The patient had undergone a GoLYTELY prep. The patient had been brought into the operating room and laid in the left lateral decubitus position. After adequate intravenous sedation, the rectum was examined with 2% lidocaine jelly. No external hemorrhoids were encountered. The rectal tone was within normal limits. No lesions were palpated in the rectal vault. An Olympus colonoscope was advanced until the cecum, ileocecal valve and appendiceal orifice were clearly viewed. The prep was good. Scattered diverticulosis was encountered. No colonic polyps were found. Focal colitis affecting the sigmoid colon was found with recent bleeding. A few hyperplastic polyps were identified. Retroflexion of the scope demonstrated grade 2 internal hemorrhoids without active bleeding or inflammation. The colon was desufflated. The patient had tolerated the procedure well. Withdrawal time was over 6 minutes. FINDINGS: Aronchick preparation quality scale 2 (1-5) Internal hemorrhoids, grade 1 No external prolapsed hemorrhoids. No arteriovenous malformations. No adenomatous polyps. Mild to moderate sigmoid focal colitis with recent bleeding RECOMMENDATIONS: 1. Recommend discontinuing antiplatelet therapy 2. Recommend discontinue chronic anticoagulation 3. May benefit from [place] filter for history of persistent gastrointestinal bleeding 4. May start diet as tolerated Plan - Discharge Summary Discharge Rx Participant: No New Discharge Prescriptions: No Action Pravastatin Sodium [Pravachol] 40 mg PO DAILY Baclofen [Lioresal] 10 mg PO TID PRN PRN Reason: Muscle Spasm Moexipril [Univasc] 7.5 mg PO DAILY Nadolol 40 mg PO DAILY Latanoprost [Xalatan 0.005%] 2 drop BOTH EYES HS Budesonide/Formoterol Fumarate [Symbicort 160-4.5 Mcg Inhaler] 2 puff INHALATION RT-BID Albuterol Nebulized [Ventolin Nebulized] 2.5 mg INHALATION RT-TID PRN PRN Reason: Shortness Of Breath Albuterol Inhaler [Ventolin Hfa Inhaler] 1 puff INHALATION RT-QID PRN PRN Reason: Shortness Of Breath Denosumab [Prolia] 60 mg SQ Q180D Diclofenac Sodium [Voltaren Gel] 2 gram TOPICAL BID PRN PRN Reason: Pain Omeprazole 20 mg PO DAILY cycloSPORINE 0.05% OPHTH SOLN [Restasis] 1 drop BOTH EYES BID Furosemide [Lasix] 20 mg PO DAILY 30 Days #30 tab Magnesium Oxide [Magox 400] 400 mg PO DAILY 30 Days #30 tablet Apixaban [Eliquis] 5 mg PO BID hydroCHLOROthiazide [Hydrodiuril] 12.5 mg PO DAILY Umeclidinium [place] [Incruse Ellipta] 1 puff INHALATION RT-DAILY Clopidogrel Bisulfate [Plavix] 75 mg PO DAILY Aspirin EC [Ecotrin Low Dose] 81 mg PO DAILY Verapamil HCl [Verapamil ER] 240 mg PO DAILY HYDROcodone/APAP 10-325MG [[place] 10-325] 1 tab PO BID PRN PRN Reason: Pain Discharge Medication List Baclofen [Lioresal] 10 mg PO TID PRN 07/20/15 [History] Moexipril [Univasc] 7.5 mg PO DAILY 07/20/15 [History] Pravastatin Sodium [Pravachol] 40 mg PO DAILY 07/20/15 [History] Latanoprost [Xalatan 0.005%] 2 drop BOTH EYES HS 10/15/16 [History] Nadolol 40 mg PO DAILY 10/15/16 [History] Albuterol Nebulized [Ventolin Nebulized] 2.5 mg INHALATION RT-TID PRN 08/11/17 [History] Budesonide/Formoterol Fumarate [Symbicort 160-4.5 Mcg Inhaler] 2 puff INHALATION RT-BID 08/11/17 [History] Albuterol Inhaler [Ventolin Hfa Inhaler] 1 puff INHALATION RT-QID PRN 12/03/19 [History] Denosumab [Prolia] 60 mg SQ Q180D 04/06/20 [History] Diclofenac Sodium [Voltaren Gel] 2 gram TOPICAL BID PRN 04/06/20 [History] Omeprazole 20 mg PO DAILY 06/25/20 [History] Aspirin EC [Ecotrin Low Dose] 81 mg PO DAILY 08/07/20 [History] Clopidogrel Bisulfate [Plavix] 75 mg PO DAILY 08/07/20 [History] Umeclidinium [place] [Incruse Ellipta] 1 puff INHALATION RT-DAILY 08/07/20 [History] Verapamil HCl [Verapamil ER] 240 mg PO DAILY 08/07/20 [History] cycloSPORINE 0.05% OPHTH SOLN [Restasis] 1 drop BOTH EYES BID 08/07/20 [History] hydroCHLOROthiazide [Hydrodiuril] 12.5 mg PO DAILY 08/07/20 [History] Furosemide [Lasix] 20 mg PO DAILY 30 Days #30 tab 08/09/20 [Rx] Magnesium Oxide [Magox 400] 400 mg PO DAILY 30 Days #30 tablet 08/09/20 [Rx] Apixaban [Eliquis] 5 mg PO BID 11/12/20 [History] HYDROcodone/APAP 10-325MG [[place] 10-325] 1 tab PO BID PRN 11/12/20 [History] Follow up Appointment(s)/Referral(s): [facility], [NON-STAFF] - [facility] [NON-STAFF] - Danielle Monzon MD [Primary Care Provider] - 1-2 days
--- NOTE | 2020-11-16 13:24 | P.PN ---
Subjective Progress Note Date: 11/16/20 No new complaints today. At the time of my evaluation, patient was awaiting EGD/[place]. Reported no symptoms. Objective - Vital Signs Vital signs: Vital Signs Temp 96.7 F L 11/16/20 11:28 Pulse 124 H 11/16/20 11:28 Resp 18 11/16/20 11:28 BP 156/73 11/16/20 11:28 Pulse Ox 94 L 11/16/20 11:28 Intake & Output 11/15/20 11/16/20 11/16/20 18:59 06:59 18:59 Intake Total 2860 0 310 Output Total 200 500 Balance 2660 -500 310 Weight 55 kg Intake: IV 1200 310 Invasive Line 3 10 Sodium Chloride 0.9% 1, 1200 000 ml @ 100 mls/hr IV . Q10H [facility] Rx#:[id number] Oral 1660 0 Output: Urine 200 500 Other: Voiding Method Toilet Bedside Commode Bedside Commode # Bowel Movements 3 - Exam Gen: awake, alert HEENT: normocephalic, atraumatic, good hearing acuity, moist mucous membranes Resp: good air exchange, breathing comfortably with no accessory muscle use CVS: good distal perfusion x 4, GI: soft, NTTP, ND : no SPT, no CVAT, monson catheter not present MSK: no pitting edema, no clubbing Neuro: non-focal, moving all extremities Psych: cooperative, euthymic mood - Labs CBC & Chem 7: 11/16/20 06:01 11/16/20 06:01 Labs: Abnormal Lab Results - Last 24 Hours (Table) 11/15/20 11/16/20 11/16/20 Range/Units 17:39 06:01 06:01 RBC 3.19 L 2.84 L (3.80-5.40) m/uL Hgb 10.2 L 9.0 L (11.4-16.0) gm/dL Hct 31.6 L 28.1 L (34.0-46.0) % Calcium 8.1 L (8.4-10.2) mg/dL Assessment and Plan Assessment: Acute blood loss anemia secondary to treatment with Aspirin, Plavix and Eliquis in a patient with history of gastric ulcer and diverticular disease -Patient was found to have a hemoglobin of 6.5 upon arrival with baseline hemoglobin of 12.9. -Patient has received 2 units of PRBCs and currently hemoglobin stable at 8.9 -Aspirin, Plavix and Eliquis held at this time pending general surgery clearance. -Gen. surgery planning to take patient for endoscopy and colonoscopy tomorrow morning. -Protonix 40 mg IVP twice daily -Continue gentle hydration with 0.9% normal saline at 100 mL's per hour. Hypotension in a patient with history of hypertension -Hold Lasix, hydrochlorothiazide, -Continue nadolol, and verapamil. -Monitor vital signs closely. Hyperlipidemia -Continue daily medication regimen with pravastatin. Atrial fibrillation with history of PE -Hold anticoagulation with Eliquis secondary to symptomatic acute blood loss anemia History of coronary artery disease -Hold Aspirin and Plavix until cleared by general surgery to resume. CODE STATUS: Full code DVT prophylaxis: SCDs Discussed with: Patient and RN Anticipated discharge date: Clinical course to determine Anticipated discharge place: Home
--- NOTE | 2020-11-16 14:59 | P.PN ---
Subjective Progress Note Date: 11/16/20 Principal diagnosis: GI bleed, PE on anticoagulation The patient was seen and examined lying in bed. The patient is only oriented to self. She underwent EGD and colonoscopy by . Colonoscopy showed mild to moderate sigmoid focal colitis with recent bleeding but no active bleeding. EGD showed no active bleeding, no ulcers, patient had only grade a erosive esophagitis. Hemoglobin is stable at 9.0 today. Patient is negative for DVT bilaterally. Objective - Vital Signs Vital signs: Vital Signs Temp 96.7 F L 11/16/20 11:28 Pulse 124 H 11/16/20 11:28 Resp 18 11/16/20 11:28 BP 156/73 11/16/20 11:28 Pulse Ox 94 L 11/16/20 11:28 Intake & Output 11/15/20 11/16/20 11/16/20 18:59 06:59 18:59 Intake Total 2860 0 310 Output Total 200 500 Balance 2660 -500 310 Weight 55 kg Intake: IV 1200 310 Invasive Line 3 10 Sodium Chloride 0.9% 1, 1200 000 ml @ 100 mls/hr IV . Q10H [facility] Rx#:[id number] Oral 1660 0 Output: Urine 200 500 Other: Voiding Method Toilet Bedside Commode Bedside Commode # Bowel Movements 3 - Exam General appearance: The patient is alert, oriented to self only, appears in no acute distress. HET: Head is normocephalic and atraumatic. Neck: Supple without lymphadenopathy. Trachea midline. Heart: S1 S2. Regular rate and rhythm. Lungs: No crackles or wheezes are heard. Abdomen: Soft, nontender, nondistended. Extremities: Normal skin color and turgor. No pedal edema. Neurological: Alert, oriented 1. - Labs CBC & Chem 7: 11/16/20 06:01 11/16/20 06:01 Labs: Abnormal Lab Results - Last 24 Hours (Table) 11/15/20 11/16/20 11/16/20 Range/Units 17:39 06:01 06:01 RBC 3.19 L 2.84 L (3.80-5.40) m/uL Hgb 10.2 L 9.0 L (11.4-16.0) gm/dL Hct 31.6 L 28.1 L (34.0-46.0) % Calcium 8.1 L (8.4-10.2) mg/dL Assessment and Plan Assessment: 1. Melena possible GI bleed 2. History of PE on anticoagulation 3. Symptomatic anemia Plan: Patient underwent venous Doppler of lower extremities which was negative for DVT bilaterally. Patient currently has palliative care at the bedside. No plans at this time for IVC filter as do not feel it would be beneficial. Consider no anticoagulation for PE. The impression and plan of care has been dictated as directed. Dr. Fields I performed a history and examination of this patient, discussed the same with the dictator. I agree with the dictator's note ,documented as a scribe. Any additional findings or plans will be noted.
[2020-11-16] MEDS: HYDROcodone/APAP 10-325MG 1 EACH TAB PO PRN (20:41)
[2020-11-16] MEDS: LATANOPROST 0.005% OPHTH DROPS 2.5 ML BTL BOTH EYES SCH (20:41)
[2020-11-16] MEDS: BACLOFEN 10 MG TAB PO PRN (20:42)
[2020-11-16] MEDS ORDERED: DILTIAZEM 125 MG/25 ML VIAL IV ONE (23:59)
[2020-11-16] MEDS ORDERED: SODIUM CHLORIDE 0.9% 100 ML BAG ONE (23:59)
[2020-11-17] MEDS: ALBUTEROL NEBULIZED 2.5 MG/3 ML INHALATION PRN (08:08)
[2020-11-17] MEDS: SYMBICORT 160-4.5 MCG INHALER INHALATION SCH (08:09)
[2020-11-17] MEDS: VERAPAMIL SR 240 MG TABLET.ER PO SCH (09:23)
[2020-11-17] MEDS: BACLOFEN 10 MG TAB PO PRN (09:23)
[2020-11-17] MEDS: cycloSPORINE 0.05% OPHTH 0.4 ML DROPERETTE BOTH EYES SCH (09:23)
[2020-11-17] MEDS: PRAVASTATIN SODIUM 40 MG TAB PO SCH (09:24)
[2020-11-17] MEDS: HYDROcodone/APAP 10-325MG 1 EACH TAB PO PRN (09:24)
[2020-11-17] MEDS: PANTOPRAZOLE 40 MG/10 ML VIAL IVP SCH (09:25)
[2020-11-17] MEDS ORDERED: LIDOCAINE 1% INJ 10MG/ML (20 ML MDV) SQ ONE (10:09)
[2020-11-17] MEDS ORDERED: MIDAZOLAM 2 MG/2 ML VIAL IV ONE (10:09)
[2020-11-17] MEDS ORDERED: SODIUM CHLORIDE 0.9% 250 ML IV ONE (10:10)
[2020-11-17] MEDS ORDERED: IOPAMIDOL-250 100ML BTL IV ONE (10:30)
--- NOTE | 2020-11-17 10:36 | P.PN ---
Subjective Progress Note Date: 11/17/20 Patient seen and evaluated. No complaints. Hemoglobin has maintained stability after transfusions. Objective - Vital Signs Vital signs: Vital Signs Temp 98.3 F 11/17/20 09:19 Pulse 71 11/17/20 09:19 Resp 16 11/17/20 09:19 BP 166/75 11/17/20 09:19 Pulse Ox 96 11/17/20 09:19 Intake & Output 11/16/20 11/17/20 11/17/20 18:59 06:59 18:59 Intake Total 580 10 150 Balance 580 10 150 Weight 57.4 kg Intake: IV 320 10 150 Invasive Line 3 20 10 Oral 260 0 Other: Voiding Method Bedside Commode Toilet # Voids 2 1 - Exam Gen. a pleasant cooperative female who is hard of hearing. No acute distress. Head is normal cephalic. Heart appears irregular at this time. Lungs are clear bilaterally. Abdomen soft, nontender and not Distended. Extremity show no clubbing or cyanosis. No significant edema. Normal mood and affect. Cranial nerves II through XII grossly intact - Labs CBC & Chem 7: 11/16/20 06:01 11/16/20 06:01 Assessment and Plan Assessment: Recently diagnosed pulmonary embolism Symptomatically anemia Colitis with evidence of recent bleeding Plan: I we have discussed the case with the general surgeon as well as a hematology position. Given her inability to properly anticoagulate if you believe she would benefit from a filter placement. There is currently no evidence of DVT however given her recent PE, hematology would feel more comfortable with a filter at this time given she cannot be anticoagulated currently. This is discussed with the patient and her daughter who seemingly understand and willing to proceed. We will plan for this later this morning.
--- NOTE | 2020-11-17 10:46 | P.OP ---
Date of Procedure: 11/17/20 Description of Procedure: Preoperative diagnosis: [Recently diagnosed pulmonary embolism, GI bleed, inability to anticoagulate] Postoperative diagnosis: Same Procedure: [#1 ultrasound-guided right common femoral vein access #2 right iliofemoral venogram #3 venacavogram Number for placement of IVC filter with fluoroscopic guidance #5 moderate conscious sedation 8 minutes] Surgeon: Mee Fields D.O. EBL: [Less than 10 mL] IV fluids: [See records] Urine output: [Not measured] Drains: [None] Complications: [None immediately apparent] Condition: [Stable] Operative indication and findings: [The patient is a [age] female who was recently diagnosed with a pulmonary emboli on October 20. She was initiated on anticoagulation and subsequently developed symptomatically anemia. She underwent endoscopy evaluation was found to have areas of recent bleeding due to her colitis. As recommended she be discontinued off of anticoagulation and antiplatelet therapies. This wasAlso discussed with hematology who thought the patient would benefit from a filter. We discussed this with the patient and the daughter over the phone who seemingly understood and are willing to proceed as such] Procedure in detail: The patient was taken to the operative suite and placed in supine position. The bilateral groins are prepped and draped in usual sterile fashion And a preprocedure timeout was performed and all parties in agreement. The saw was utilized in the right common femoral vein was identified. The skin overlying was anesthetized with 1% lidocaine plain. Using a multipurpose needle and Seldinger technique the vein was accessed and a 6-[place] sheath was placed. A right iliofemoral venogram was performed showing no evidence of visualized thrombus. A J-wire was placed into the vena cava and a Cook filterDelivery sheath was placed. A venacavogram was performed to identify the renal vessels. The The filter was then deployed in standard fashion and a repeat venogram was performed revealing good positioning and her relatively tortuous inferior vena cava. Catheters and wires were removed. She is removed and pressure was held until hemostasis was adequate.]
--- NOTE | 2020-11-17 11:10 | IR ---
EXAMINATION TYPE: IR IVC filter placement DATE OF EXAM: 11/17/2020 COMPARISON: NONE HISTORY: Fluoroscopy time. Fluoroscopy was provided to the referring clinician.
[2020-11-17] MEDS ORDERED: SODIUM FERRIC GLUCONAT-SUCROSE 125 MG in SODIUM CHLORIDE 0.9% 100 ML IVPB ONE ×2 (11:15→12:00)
[2020-11-17] MEDS: LACTATED RINGERS 1,000 ML IV SCH (12:27)
[2020-11-17 12:32] VITALS: RESP 16
[2020-11-17] MEDS ORDERED: Potassium Replacement Protocol 1 EACH MISC MISCELLANE PRN (12:47)
--- NOTE | 2020-11-17 14:43 | P.PN ---
Subjective Progress Note Date: 11/17/20 CHIEF COMPLAINT: Anemia HISTORY OF PRESENT ILLNESS: Surgical service is following in regards to patient's anemia. Patient had been having black tarry stools. She had been taking both Plavix and Eliquis. She had her watchman procedure in May. She was diagnosed with a PE earlier in October. Her last bowel movement was on Saturday and it was brownish in color. She is status post EGD and colonoscopy. EGD had shown evidence of LA grade a erosive esophagitis and no active bleeding. Colonoscopy showed internal hemorrhoids and mild to moderate sigmoid focal colitis with recent bleeding. Patient denies any abdominal pain. She is status post [place] filter today with Dr. Fields. Afebrile. No new labs PHYSICAL EXAM: VITAL SIGNS: Reviewed GENERAL: Well-developed in no acute distress. HEENT: No sclera icterus. Extraocular movements grossly intact. Moist buccal mucosa. Head is atraumatic, normocephalic. Hears conversational speech. No nasal drainage. NECK: Supple without lymphadenopathy. CHEST: Non-labored respirations and equal bilateral excursions. CARDIOVASCULAR: Palpable 2+ radial pulses. ABDOMEN: Soft. Nondistended. Nontender. MUSCULOSKELETAL: No clubbing or cyanosis. NEUROLOGIC: No focal or lateralizing signs. Cranial nerves II through XII grossly intact. PSYCH: Appropriate affect. Alert and oriented to person, place and time. SKIN: Well perfused. Good skin turgor. ASSESSMENT: 1. Acute blood loss anemia secondary to GI bleed. 2. History of arterial venous malformations 3. History of GI bleeds 4. History of PE 5. History of atrial fibrillation status post watchman procedure 6. Hypotension 7. Chronic back pain 8. Hyperlipidemia 9. Osteoarthritis 10. COPD 11. Hard of hearing PLAN: -Agree with IVC filter placement -Recommend discontinuing antiplatelet therapy -Recommend discontinuing chronic anticoagulation -Continue regular diet -Patient can be discharged from surgical standpoint Physician Charging Plug Placer note has been reviewed by physician. Signing provider agrees with the documented findings, assessment, and plan of care. Objective - Vital Signs Vital signs: Vital Signs Temp 98 F 11/17/20 12:00 Pulse 73 11/17/20 12:30 Resp 16 11/17/20 12:30 BP 118/68 11/17/20 12:30 Pulse Ox 95 11/17/20 12:30 Intake & Output 11/16/20 11/17/20 11/17/20 18:59 06:59 18:59 Intake Total 580 10 150 Balance 580 10 150 Weight 57.4 kg Intake: IV 320 10 150 Invasive Line 3 20 10 Oral 260 0 Other: Voiding Method Bedside Commode Toilet # Voids 2 1 2 - Labs CBC & Chem 7: 11/16/20 06:01 11/16/20 06:01
[2020-11-17 15:50] VITALS: BP 119/66; PULSE 69; TEMP 97.8
[2020-11-17] MEDS: POTASSIUM CHLORIDE ER 20 MEQ TAB.ER PO SCH ×2 (16:12)
--- NOTE | 2020-11-17 16:24 | P.DS ---
Providers Date of admission: 11/12/20 16:56 Expected date of discharge: 11/17/20 Attending physician: Melanie Sigala MD Consults: 11/14/20 14:13 Consult Physician Routine Consulting Provider: Elton Garcia Consult Reason/Comments: pulmonary embolism recent now GI bleed Do you want consulting provider notified?: Yes 11/15/20 14:17 Consult Physician Stat Consulting Provider: Nathan Mota Consult Reason/Comments: retrievable IVC filter placement Do you want consulting provider notified?: Already Contacted Primary care physician: Danielle Monzon MD Hospital Course: Acute blood loss anemia secondary to treatment with Aspirin, Plavix and Eliquis in a patient with history of gastric ulcer and diverticular disease Patient was admitted for ABLA with hgb down from 12.9 to 6.5 on arrival. She rec'd 2U PRBCs and hemoglobins remained stable between 8-9 thereafter. Her history revealed that she was on ASA, Plavix, and Eliquis. ASA was started for finding of non-occlusive CAD in the past, Plavix was started s/p Watchman in May, Eliquis was started s/p PE in October. She has history of AVMs. She underwent EGD/[place] with general surgery, who found sigmoid colitis, but no definitive source of bleed, meaning source was likely small bowel AVMs too distal for endoscope. Due to recent PE, patient had IVC filter placed with vascular surgery. Cardiology confirmed patient's DAPT could be d/c'd. Eliquis d/c'd as well. Pt will follow up with hematology, who facilitated management of this complex patient. Hypotension in a patient with history of hypertension -Hold Lasix, hydrochlorothiazide during admission. On discharge, lasix continued, HCTZ d/c'd. -Continued nadolol, and verapamil with no changes. Hyperlipidemia -Continued daily medication regimen with pravastatin. Atrial fibrillation with history of PE -Discontinued anticoagulation with Eliquis secondary to symptomatic acute blood loss anemia History of coronary artery disease -Discontinued Aspirin and Plavix until cleared by general surgery to resume. Patient will follow up with hematology for attempt to re-initiate AC for PE treatment in 6 weeks time. Will f/u with PCP as well. I spent 42 minutes coordinating this complex discharge. Assessment: HEENT: normocephalic, atraumatic, impaired hearing acuity, moist mucous membranes Resp: good air exchange, breathing comfortably with no accessory muscle use CVS: good distal perfusion x 4, GI: soft, NTTP, ND : no SPT, no CVAT, monson catheter not present MSK: no pitting edema, no clubbing Neuro: non-focal, moving all extremities Psych: cooperative, euthymic mood Patient Condition at Discharge: Good Plan - Discharge Summary Discharge Rx Participant: No New Discharge Prescriptions: Continue Pravastatin Sodium [Pravachol] 40 mg PO DAILY Baclofen [Lioresal] 10 mg PO TID PRN PRN Reason: Muscle Spasm Moexipril [Univasc] 7.5 mg PO DAILY Nadolol 40 mg PO DAILY Latanoprost [Xalatan 0.005%] 2 drop BOTH EYES HS Budesonide/Formoterol Fumarate [Symbicort 160-4.5 Mcg Inhaler] 2 puff INHALAT ION RT-BID Albuterol Nebulized [Ventolin Nebulized] 2.5 mg INHALATION RT-TID PRN PRN Reason: Shortness Of Breath Albuterol Inhaler [Ventolin Hfa Inhaler] 1 puff INHALATION RT-QID PRN PRN Reason: Shortness Of Breath Denosumab [Prolia] 60 mg SQ Q180D Diclofenac Sodium [Voltaren Gel] 2 gram TOPICAL BID PRN PRN Reason: Pain Omeprazole 20 mg PO DAILY cycloSPORINE 0.05% OPHTH SOLN [Restasis] 1 drop BOTH EYES BID Furosemide [Lasix] 20 mg PO DAILY 30 Days #30 tab Magnesium Oxide [Magox 400] 400 mg PO DAILY 30 Days #30 tablet Umeclidinium [place] [Incruse Ellipta] 1 puff INHALATION RT-DAILY Verapamil HCl [Verapamil ER] 240 mg PO DAILY HYDROcodone/APAP 10-325MG [[place] 10-325] 1 tab PO BID PRN PRN Reason: Pain Discontinued Apixaban [Eliquis] 5 mg PO BID hydroCHLOROthiazide [Hydrodiuril] 12.5 mg PO DAILY Clopidogrel Bisulfate [Plavix] 75 mg PO DAILY Aspirin EC [Ecotrin Low Dose] 81 mg PO DAILY Discharge Medication List Baclofen [Lioresal] 10 mg PO TID PRN 07/20/15 [History] Moexipril [Univasc] 7.5 mg PO DAILY 07/20/15 [History] Pravastatin Sodium [Pravachol] 40 mg PO DAILY 07/20/15 [History] Latanoprost [Xalatan 0.005%] 2 drop BOTH EYES HS 10/15/16 [History] Nadolol 40 mg PO DAILY 10/15/16 [History] Albuterol Nebulized [Ventolin Nebulized] 2.5 mg INHALATION RT-TID PRN 08/11/17 [History] Budesonide/Formoterol Fumarate [Symbicort 160-4.5 Mcg Inhaler] 2 puff INHALATION RT-BID 08/11/17 [History] Albuterol Inhaler [Ventolin Hfa Inhaler] 1 puff INHALATION RT-QID PRN 12/03/19 [ History] Denosumab [Prolia] 60 mg SQ Q180D 04/06/20 [History] Diclofenac Sodium [Voltaren Gel] 2 gram TOPICAL BID PRN 04/06/20 [History] Omeprazole 20 mg PO DAILY 06/25/20 [History] Umeclidinium [place] [Incruse Ellipta] 1 puff INHALATION RT-DAILY 08/07/20 [History] Verapamil HCl [Verapamil ER] 240 mg PO DAILY 08/07/20 [History] cycloSPORINE 0.05% OPHTH SOLN [Restasis] 1 drop BOTH EYES BID 08/07/20 [History] Furosemide [Lasix] 20 mg PO DAILY 30 Days #30 tab 08/09/20 [Rx] Magnesium Oxide [Magox 400] 400 mg PO DAILY 30 Days #30 tablet 08/09/20 [Rx] HYDROcodone/APAP 10-325MG [[place] 10-325] 1 tab PO BID PRN 11/12/20 [History] Follow up Appointment(s)/Referral(s): [facility], [NON-STAFF] - [facility] [NON-STAFF] - Danielle Monzon MD [Primary Care Provider] - 11/21/20 9:15 am Patient Instructions/Handouts: Gastrointestinal Bleeding (DC), Acute Kidney Injury (DC), Iron Rich Diet (DC), Iron Deficiency Anemia (DC), Aplastic Anemia (DC), Inferior Vena Cava Filter Placement (DC) Discharge Disposition: HOME WITH HOME HEALTH SERVICES
--- NOTE | 2020-11-17 16:51 | P.PN ---
Subjective Progress Note Date: 11/17/20 Principal diagnosis: In follow-up today patient is doing well, no complaints, denies any bleeding, she is status post IVC filter placement. Objective - Vital Signs Vital signs: Vital Signs Temp 97.8 F 11/17/20 10:41 Pulse 71 11/17/20 09:19 Resp 16 11/17/20 10:41 BP 167/98 11/17/20 10:41 Pulse Ox 100 11/17/20 10:41 Intake & Output 11/16/20 11/17/20 11/17/20 18:59 06:59 18:59 Intake Total 580 10 150 Balance 580 10 150 Weight 57.4 kg Intake: IV 320 10 150 Invasive Line 3 20 10 Oral 260 0 Other: Voiding Method Bedside Commode Toilet # Voids 2 1 - Constitutional General appearance: Present: cooperative, no acute distress, thin - EENT Eyes: Present: anicteric sclerae, EOMI (left ptosis) ENT: Present: hard of hearing - Respiratory Details: resp even and unlabored - Musculoskeletal Musculoskeletal: Present: strength equal bilaterally - Psychiatric Psychiatric: Present: A&O x's 3, appropriate affect, intact judgment & insight - Labs CBC & Chem 7: 11/16/20 06:01 11/16/20 06:01 - Imaging and Cardiology Venous US: report reviewed Assessment and Plan (1) Pulmonary embolism Narrative/Plan: Diagnosed 10/20/20. On chart review no provoking factor identified. Dr. Garcia discussed the case at length with Vascular Surgeon. IVC is going to be placed as patient cannot be on anticoagulation at this time due to acute gastrointestinal bleed. Despite endoscopy, no treatable source was found so, would not rechallenge patient with anticoagulation for at least 4-6 weeks. Doppler of BLE requested for baseline, no DVTs Current Visit: Yes Status: Acute Priority: High Code(s): I26.99 - OTHER PULMONARY EMBOLISM WITHOUT ACUTE COR PULMONALE SNOMED Code(s): 73003303 (2) Symptomatic anemia Narrative/Plan: Patient is status post 2 units of packed red blood cells with anticipated increase in hemoglobin. Parenteral iron 1 dose ordered today. Current Visit: Yes Status: Acute Priority: High Code(s): D64.9 - ANEMIA, UNSPECIFIED SNOMED Code(s): 063553071 (3) GI bleeding Narrative/Plan: History of the same and acute bleed. Endoscopy was negative for any source of bleeding. Hold off on any anticoagulation for at least 6 weeks. Current Visit: Yes Status: Acute Priority: High Code(s): K92.2 - GASTROINTESTINAL HEMORRHAGE, UNSPECIFIED SNOMED Code(s): 33259397 Plan: Need to ensure Cardiology input regarding antiplatelet therapy for her cardiovascular disease
== END 2020-11-17 16:50 | disposition home health service (06) | DRG 813 ==
LOC: EC 15:04 → 3SCARD 16:56
PROVIDERS: ADMIT Internal Medicine; ATTEND Internal Medicine
PROC: 0DJD8ZZ Inspection of Lower Intestinal Tract, Via Natural or Artificial Opening Endoscopic (ICD-10-PCS; 2020-11-16)
PROC: 30233N1 Transfusion of Nonautologous Red Blood Cells into Peripheral Vein, Percutaneous Approach (ICD-10-PCS; 2020-11-16)
PROC: 06H03DZ Insertion of Intraluminal Device into Inferior Vena Cava, Percutaneous Approach (ICD-10-PCS; principal; 2020-11-16 11:35)
PROC: 0DJ08ZZ Inspection of Upper Intestinal Tract, Via Natural or Artificial Opening Endoscopic (ICD-10-PCS; 2020-11-16 11:35)
PROC: B54BZZA Ultrasonography of Right Lower Extremity Veins, Guidance (ICD-10-PCS; 2020-11-17)
DX: D68.32 Hemorrhagic disorder due to extrinsic circulating anticoagulants (principal); I26.99 Other pulmonary embolism without acute cor pulmonale; D62 Acute posthemorrhagic anemia; I31.3 Pericardial effusion (noninflammatory); I48.20 Chronic atrial fibrillation, unspecified; K22.10 Ulcer of esophagus without bleeding; N17.9 Acute kidney failure, unspecified; J44.1 Chronic obstructive pulmonary disease with (acute) exacerbation; Z95.818 Presence of other cardiac implants and grafts; I25.10 Atherosclerotic heart disease of native coronary artery without angina pectoris; I48.0 Paroxysmal atrial fibrillation; J44.9 Chronic obstructive pulmonary disease, unspecified; K21.9 Gastro-esophageal reflux disease without esophagitis; K52.9 Noninfective gastroenteritis and colitis, unspecified; K55.20 Angiodysplasia of colon without hemorrhage; K64.0 First degree hemorrhoids; M19.90 Unspecified osteoarthritis, unspecified site; M48.061 Spinal stenosis, lumbar region without neurogenic claudication; M47.814 Spondylosis without myelopathy or radiculopathy, thoracic region; I10 Essential (primary) hypertension; H91.90 Unspecified hearing loss, unspecified ear; G89.29 Other chronic pain; E86.0 Dehydration; E78.5 Hyperlipidemia, unspecified; T39.015A Adverse effect of aspirin, initial encounter; T45.525A Adverse effect of antithrombotic drugs, initial encounter; Z90.710 Acquired absence of both cervix and uterus; Z87.19 Personal history of other diseases of the digestive system; Z87.11 Personal history of peptic ulcer disease; Z86.711 Personal history of pulmonary embolism; Z82.5 Family history of asthma and other chronic lower respiratory diseases; Z79.899 Other long term (current) drug therapy; Z79.82 Long term (current) use of aspirin; Z79.51 Long term (current) use of inhaled steroids; Z79.02 Long term (current) use of antithrombotics/antiplatelets; Z79.01 Long term (current) use of anticoagulants
CPT/HCPCS: 36415; 37191; 43235; 45378; 71045; 72128; 72131; 80048; 80053; 83735; 83880; 84100; 84439; 84443; 84484; 85025; 85027; 85379; 85610; 85730; 86850; 86900; 86901; 86920; 93005; 93970; 94640; 99285

== ENCOUNTER 2021-02-20 16:33 | Emergency (ER) | payer MEDICARE, OTHER ==
[2021-02-20 17:07] VITALS: TEMP 97.9
[2021-02-20] MEDS ORDERED: SODIUM CHLORIDE 0.9% 500 ML 500 ML IV STA (19:09)
[2021-02-20] MEDS ORDERED: MORPHINE SULFATE 4 MG/ML SYRINGE IV STA (19:09)
[2021-02-20 19:30] LABS: Appearance,Urine Clear (Clear); Bilirubin,Urine Negative (Negative); Blood,Urine Trace (Negative); Color,Urine Yellow; Glucose,Urine (UA) Negative (Negative); Ketones,Urine Trace (Negative); Leukocyte Esterase,Urine Moderate (Negative); Mucus,Urine Rare /hpf; Nitrite,Urine Negative (Negative); PH, Urine 6.5 (5.0-8.0); Protein,Urine Trace (Negative); RBC,Urine 3 /hpf (0-5); Specific Gravity,Urine 1.023 (1.001-1.035); Urobilinogen,Urine <2.0 mg/dL (<2.0); WBC,Urine 3 /hpf (0-5)
[2021-02-20 19:34] LABS: Anisocytosis Slight; HCT 40.3 % (34.0-46.0); HGB 13.3 gm/dL (11.4-16.0); MCHC 32.9 g/dL (31.0-37.0); Mean Platelet Volume 9.3; Platelet Count 220 k/uL (150-450); RBC 4.43 m/uL (3.80-5.40); RDW 18.4 % (11.5-15.5); WBC 9.2 k/uL (3.8-10.6)
[2021-02-20 19:37] LABS: Calcium 10.4 mg/dL (8.4-10.2); Potassium 3.7 mmol/L (3.5-5.1); Total Bilirubin 0.8 mg/dL (0.2-1.3); Total Protein 7.1 g/dL (6.3-8.2)
[2021-02-20 19:52] LABS: Band Neutrophils % 1 %; Lymphocytes # (M) 2.02 k/uL (1.0-4.8); Monocytes # (M) 0.92 k/uL (0-1.0); Neutrophils % (M) 67 %; Nucleated Red Blood Cells 0 /100 WBC (0-0); Reactive Lymphocytes Present; Total Cells Counted 100
[2021-02-20 20:20] VITALS: BP 165/89; PULSE 85; RESP 20
--- NOTE | 2021-02-20 20:51 | CT ---
EXAMINATION TYPE: CT abdomen pelvis w con DATE OF EXAM: 02/20/2021 COMPARISON: None available. HISTORY: LT flank pain CT DLP: 626.4 mGycm Automated exposure control for dose reduction was used. TECHNIQUE: Helical acquisition of images was performed from the lung bases through the pelvis. CONTRAST: Performed without Oral Contrast and with IV Contrast, patient injected with 80 mL of Isovue 300. FINDINGS: LUNG BASES: No significant abnormality is appreciated. LIVER/GB: No acute abnormality is appreciated. 2 mm low-attenuation hepatic focus, too small to gabriel cterize and probable benign cyst. 9 mm dilated common bile duct diameter. PANCREAS: No significant abnormality is seen. SPLEEN: No significant abnormality is seen. ADRENALS: No significant abnormality is seen. KIDNEYS: No acute abnormality is seen. Few simple appearing bilateral renal cysts measuring up to 1.1 cm. FREE AIR: No free air is visualized. RETROPERITONEAL ADENOPATHY: None visualized REPRODUCTIVE ORGANS: No significant abnormality is seen URINARY BLADDER: No significant abnormality is seen. PELVIC ADENOPATHY: None visualized. OSSEOUS STRUCTURES: No acute abnormality is seen. Moderate to severe lumbar spondylosis with dextroc onvex scoliosis. BOWEL: No significant abnormality is seen. OTHER: IVC filter is seen. IMPRESSION: NO DEFINITE ACUTE ABNORMALITY. CHRONIC AND INCIDENTAL FINDINGS ABOVE.
[2021-02-20] MEDS ORDERED: CEPHALEXIN 500 MG CAP PO STA (22:37)
--- NOTE | 2021-02-20 22:39 | ED ---
General Adult HPI - General Chief complaint: Urogenital Stated complaint: lt back pain Source: patient Mode of arrival: ambulatory Limitations: no limitations - History of Present Illness Initial comments: 75-year-old female with multiple medical problems presents to the emergency department reported left flank pain. She reports that the pain has been going on for the past week. It is reproducible in nature upon ambulation and bending. Patient is concerned for kidney stone. Denies history of kidney stone in the past. Denies dysuria, hematuria or difficulty voiding. Denies any changes in her bowel habits. No abnormal vaginal bleeding or discharge. History of hyster ectomy. She denies any fevers or chills. No nausea or vomiting. She does take [place] at home for chronic pain and it has not been helping her symptoms. No other alleviating, precipitating mopping factors - Related Data Home Medications Medication Instructions Recorded Confirmed Baclofen [Lioresal] 10 mg PO TID PRN 07/20/15 11/12/20 Moexipril [Univasc] 7.5 mg PO DAILY 07/20/15 11/12/20 Pravastatin Sodium [Pravachol] 40 mg PO DAILY 07/20/15 11/12/20 Latanoprost [Xalatan 0.005%] 2 drop BOTH EYES HS 10/15/16 11/12/20 Nadolol 40 mg PO DAILY 10/15/16 11/12/20 Albuterol Nebulized [Ventolin 2.5 mg INHALATION RT-TID PRN 08/11/17 11/12/20 Nebulized] Budesonide/Formoterol Fumarate 2 puff INHALATION RT-BID 08/11/17 11/12/20 [Symbicort 160-4.5 Mcg Inhaler] Albuterol Inhaler [Ventolin Hfa 1 puff INHALATION RT-QID PRN 12/03/19 11/12/20 Inhaler] Denosumab [Prolia] 60 mg SQ Q180D 04/06/20 11/12/20 Diclofenac Sodium [Voltaren Gel] 2 gram TOPICAL BID PRN 04/06/20 11/12/20 Omeprazole 20 mg PO DAILY 06/25/20 11/12/20 Umeclidinium [place] [Incruse 1 puff INHALATION RT-DAILY 08/07/20 11/12/20 Ellipta] Verapamil HCl [Verapamil ER] 240 mg PO DAILY 08/07/20 11/12/20 cycloSPORINE 0.05% OPHTH SOLN 1 drop BOTH EYES BID 08/07/20 11/12/20 [Restasis] HYDROcodone/APAP 10-325MG [[place] 1 tab PO BID PRN 11/12/20 11/12/20 10-325] Previous Rx's Medication Instructions Recorded Furosemide [Lasix] 20 mg PO DAILY 30 Days #30 tab 08/09/20 Magnesium Oxide [Magox 400] 400 mg PO DAILY 30 Days #30 tablet 08/09/20 Cephalexin [Keflex] 500 mg PO Q6HR #28 cap 02/20/21 Allergies Allergy/AdvReac Type Severity Reaction Status Date / Time No Known Allergies Allergy Verified 11/12/20 19:05 Review of Systems ROS Statement: Those systems with pertinent positive or pertinent negative responses have been documented in the HPI. ROS Other: All systems not noted in ROS Statement are negative. Past Medical History Past Medical History: Atrial Fibrillation, Asthma, COPD, GERD/Reflux, GI Bleed, Hyperlipidemia, Hypertension, Osteoarthritis (OA), Pneumonia, Vascular Disorder Additional Past Medical History / Comment(s): [place], Bronchitis, gastric ulcer, diverticular disease, lower GI bleed/AV malformation with ablation, benign colon polyp, borderline hyperlipidemia, arthritis mostly in back, slight bilateral glaucoma, varicosities. History of Any Multi-Drug Resistant Organisms: None Reported Past Surgical History: Adenoidectomy, Appendectomy, Heart Catheterization, Hysterectomy, Tonsillectomy, Tubal Ligation Additional Past Surgical History / Comment(s): Colonoscopy/benign polypectomy/AV malformation ablation, bilateral cataract removals, watchmen procedure Past Anesthesia/Blood Transfusion Reactions: No Reported Reaction Additional Past Anesthesia/Blood Transfusion Reaction / Comment(s): never recieved blood before. Past Psychological History: No Psychological Hx Reported Smoking Status: Never smoker, Second hand smoke exposure Past Alcohol Use History: None Reported Past Drug Use History: None Reported - Past Family History Father Family Medical History: COPD Additional Family Medical History / Comment(s): EMPHYSEMA Mother Family Medical History: Osteoarthritis (OA) Additional Family Medical History / Comment(s): EMPHYSEMA, BOWEL OBSTRUCTION/C OLOSTOMY General Exam Limitations: no limitations Course Vital Signs 02/20/21 02/20/21 17:04 20:12 Temperature 97.9 F Pulse Rate 87 85 Respiratory 18 20 Rate Blood Pressure 166/92 165/89 O2 Sat by Pulse 96 96 Oximetry Medical Decision Making - Medical Decision Making Upon arrival patient is placed in room 7. A thorough history and physical exam is performed. IV is established. Patient was given 4 mg of morphine and a 500 L bolus of normal saline. Laboratory studies are conducted and reviewed. Creatinine slightly elevated at 1.1. Urinalysis demonstrates moderate leukocyte esterase with rare mucus and trace blood. CT of the patient's abdomen and pelvis fails to demonstrate any acute process. The patient is reevaluated and reports improvement in her pain. Due to the abnormal UA will be sent for urine culture. Patient will be placed on a course of antibiotics. Patient does have baclofen to take at home as needed. Recommend that she begin taking this medication 3 times daily as needed for pain. Follow up with her primary care doctor for further evaluation. Return to the emergency department for any new or worsening symptoms. Patient was discharged home in stable condition - Lab Data Result diagrams: 02/20/21 19:17 02/20/21 19:17 Lab Results 02/20/21 02/20/21 02/20/21 Range/Units 19:17 19:17 19:17 WBC 9.2 (3.8-10.6) k/uL RBC 4.43 (3.80-5.40) m/uL Hgb 13.3 (11.4-16.0) gm/dL Hct 40.3 (34.0-46.0) % MCV 91.0 (80.0-100.0) fL MCH 30.0 (25.0-35.0) pg MCHC 32.9 (31.0-37.0) g/dL RDW 18.4 H (11.5-15.5) % Plt Count 220 (150-450) k/uL MPV 9.3 Neutrophils % (Manual) 67 % Band Neuts % (Manual) 1 % Lymphocytes % (Manual) 22 % Monocytes % (Manual) 10 % Neutrophils # (Manual) 6.20 (1.3-7.7) k/uL Lymphocytes # (Manual) 2.02 (1.0-4.8) k/uL Monocytes # (Manual) 0.92 (0-1.0) k/uL Nucleated RBCs 0 (0-0) /100 WBC Manual Slide Review Performed Reactive Lymphocytes Present Anisocytosis Slight Sodium 135 L (137-145) mmol/L Potassium 3.7 (3.5-5.1) mmol/L Chloride 95 L (98-107) mmol/L Carbon Dioxide 33 H (22-30) mmol/L Anion Gap 7 mmol/L BUN 26 H (7-17) mg/dL Creatinine 1.14 H (0.52-1.04) mg/dL Est GFR (CKD-EPI)AfAm 54 (>60 ml/min/1.73 sqM) Est GFR (CKD-EPI)NonAf 47 (>60 ml/min/1.73 sqM) Glucose 125 H (74-99) mg/dL Plasma Lactic Acid [place] 1.4 (0.7-2.0) mmol/L Calcium 10.4 H (8.4-10.2) mg/dL Total Bilirubin 0.8 (0.2-1.3) mg/dL AST 29 (14-36) U/L ALT 13 (4-34) U/L Alkaline Phosphatase 95 (38-126) U/L Total Protein 7.1 (6.3-8.2) g/dL Albumin 4.0 (3.5-5.0) g/dL Lipase 37 (23-300) U/L Urine Color Urine Appearance (Clear) Urine pH (5.0-8.0) Ur Specific [place] (1.001-1.035) Urine Protein (Negative) Urine Glucose (UA) (Negative) Urine Ketones (Negative) Urine Blood (Negative) Urine Nitrite (Negative) Urine Bilirubin (Negative) Urine Urobilinogen (<2.0) mg/dL Ur Leukocyte Esterase (Negative) Urine RBC (0-5) /hpf Urine WBC (0-5) /hpf Urine Mucus (None) /hpf 02/20/21 Range/Units 19:20 WBC (3.8-10.6) k/uL RBC (3.80-5.40) m/uL Hgb (11.4-16.0) gm/dL Hct (34.0-46.0) % MCV (80.0-100.0) fL MCH (25.0-35.0) pg MCHC (31.0-37.0) g/dL RDW (11.5-15.5) % Plt Count (150-450) k/uL MPV Neutrophils % (Manual) % Band Neuts % (Manual) % Lymphocytes % (Manual) % Monocytes % (Manual) % Neutrophils # (Manual) (1.3-7.7) k/uL Lymphocytes # (Manual) (1.0-4.8) k/uL Monocytes # (Manual) (0-1.0) k/uL Nucleated RBCs (0-0) /100 WBC Manual Slide Review Reactive Lymphocytes Anisocytosis Sodium (137-145) mmol/L Potassium (3.5-5.1) mmol/L Chloride (98-107) mmol/L Carbon Dioxide (22-30) mmol/L Anion Gap mmol/L BUN (7-17) mg/dL Creatinine (0.52-1.04) mg/dL Est GFR (CKD-EPI)AfAm (>60 ml/min/1.73 sqM) Est GFR (CKD-EPI)NonAf (>60 ml/min/1.73 sqM) Glucose (74-99) mg/dL Plasma Lactic Acid [place] (0.7-2.0) mmol/L Calcium (8.4-10.2) mg/dL Total Bilirubin (0.2-1.3) mg/dL AST (14-36) U/L ALT (4-34) U/L Alkaline Phosphatase (38-126) U/L Total Protein (6.3-8.2) g/dL Albumin (3.5-5.0) g/dL Lipase (23-300) U/L Urine Color Yellow Urine Appearance Clear (Clear) Urine pH 6.5 (5.0-8.0) Ur Specific [place] 1.023 (1.001-1.035) Urine Protein Trace H (Negative) Urine Glucose (UA) Negative (Negative) Urine Ketones Trace H (Negative) Urine Blood Trace H (Negative) Urine Nitrite Negative (Negative) Urine Bilirubin Negative (Negative) Urine Urobilinogen <2.0 (<2.0) mg/dL Ur Leukocyte Esterase Moderate H (Negative) Urine RBC 3 (0-5) /hpf Urine WBC 3 (0-5) /hpf Urine Mucus Rare H (None) /hpf Disposition Clinical Impression: Left flank pain, Abnormal urinalysis Disposition: HOME SELF-CARE Condition: Stable Instructions (If sedation given, give patient instructions): Flank Pain (ED) Additional Instructions: Take your baclofen times daily as needed for your back pain. Follow up with your primary care doctor in 2-4 days for further evaluation. Return to the emergency room for any new or worsening symptoms Prescriptions: Cephalexin [Keflex] 500 mg PO Q6HR #28 cap Is patient prescribed a controlled substance at d/c from ED?: No Referrals: Danielle Monzon MD [Primary Care Provider] - 1-2 days Time of Disposition: 22:39
== END 2021-02-20 23:25 | disposition home or self-care (01) ==
LOC: EC 16:33
DX: R10.9 Unspecified abdominal pain (principal); R82.90 Unspecified abnormal findings in urine; I10 Essential (primary) hypertension; E78.5 Hyperlipidemia, unspecified; J44.9 Chronic obstructive pulmonary disease, unspecified; I48.91 Unspecified atrial fibrillation; K21.9 Gastro-esophageal reflux disease without esophagitis; M19.90 Unspecified osteoarthritis, unspecified site; Z77.22 Contact with and (suspected) exposure to environmental tobacco smoke (acute) (chronic); Z79.51 Long term (current) use of inhaled steroids; Z79.899 Other long term (current) drug therapy
CPT/HCPCS: 36415; 80053; 83605; 83690; 85025; 81001; 74177; 99284; 96374; J2270; Q9967

== ENCOUNTER → 2021-08-04 | Outpatient (CLI) | payer MEDICARE, OTHER ==
--- NOTE | 2021-08-09 09:36 | MM ---
Reason for exam: screening (asymptomatic). Last mammogram was performed 1 year and 4 months ago. History: Patient is postmenopausal. Family history of breast cancer in sister at age 60. US discontinued breast bx RT of the right breast, March 26, 2016. Physical Findings: A clinical breast exam by your physician is recommended on an annual basis and results should be correlated with mammographic findings. MG 3D Screening Mammo W/Cad Bilateral CC and MLO view(s) were taken. Prior study comparison: April 14, 2020, bilateral MG 3d screening mammo w/cad. February 05, 2019, bilateral MG 3d screening mammo w/cad. There are scattered fibroglandular densities. There is chronic nodularity in the left breast. No significant changes when compared with prior studies. ASSESSMENT: Benign, BI-RAD 2 RECOMMENDATION: Routine screening mammogram of both breasts in 1 year.
== END | disposition home or self-care (01) ==
LOC: RADMAMWWP 16:29
PROVIDERS: ATTEND Family Medicine
DX: Z12.31 Encounter for screening mammogram for malignant neoplasm of breast (principal); Z78.0 Asymptomatic menopausal state; Z80.3 Family history of malignant neoplasm of breast
CPT/HCPCS: 77063; 77067

== ENCOUNTER → 2022-04-27 | Outpatient (CLI) | payer MEDICARE, OTHER ==
[2022-04-27 22:46] LABS: HCT 44.7 % (37.2-46.3); HGB 14.7 g/dL (12.0-15.0); MCHC 32.9 g/dL (32.0-37.0); MCV 103.5 fL (80.0-97.0); Mean Platelet Volume 10.8 fL (9.5-12.2); NRBC Per 100 WBC 0 /100 WBCS (0.0-0.0); Platelet Count 279 X 10*3/uL (140-440); RBC 4.32 X 10*6/uL (4.10-5.20); RDW 12.1 % (11.5-14.5); WBC 8.59 X 10*3/uL (4.50-10.00)
[2022-04-28 00:09] LABS: African American GFR (CKD) 50.1 (60.0-200.0); Anion Gap 12.8 mmol/L (10.00-18.00); BUN/Creat Ratio 15.75 Ratio (12.00-20.00); Blood Urea Nitrogen 18.9 mg/dL (9.0-27.0); Carbon Dioxide 37.3 mmol/L (20.0-27.5); Non-African American GFR(CKD) 43.3 (60.0-200.0); Potassium 3.9 mmol/L (3.5-5.5)
== END | disposition home or self-care (01) ==
LOC: LABWHC1 14:02
PROVIDERS: ATTEND Family Medicine
DX: I10 Essential (primary) hypertension (principal); M81.0 Age-related osteoporosis without current pathological fracture; R41.3 Other amnesia
CPT/HCPCS: 36415; 80048; 82306; 82607; 82746; 84443; 84450; 84460; 85027

== ENCOUNTER 2022-07-23 14:44 | Observation (INO) | payer MEDICARE, OTHER ==
--- NOTE | 2022-07-23 16:04 | ED ---
General Adult HPI - General Chief complaint: Altered Mental Status Stated complaint: Confusion Time Seen by Provider: 07/23/22 14:55 Source: patient, EMS, RN notes reviewed, old records reviewed Mode of arrival: EMS Limitations: altered mental status, physical limitation (Patient is extremely blue rd of hearing and does not have her hearing aids with her) - History of Present Illness Initial comments: This is a 77-year-old female presents emergency Department whose daughter gives all the history. Daughter states she was called by another family member and was told that the patient was altered mentally. When the daughter arrived the patient was confused and not making sense trying to find. Hearing aids even though they were in her hand and according to the daughter patient never is argumentative but she was extremely argumentative and then by the time EMS got there she was overtly friendly was very abnormal for her is welcome she's very shy woman. Daughter states she hasn't noticed any difficulty breathing there's been no history of fevers but denies any nausea vomiting. Aside from the confusion the daughter states there's been no neurologic deficits the patient is speaking clearly there is no weakness that she's noted no drooping of the face. Patient herself denies any pain at all - Related Data Home Medications Medication Instructions Recorded Confirmed Baclofen [Lioresal] 10 mg PO TID PRN 07/20/15 07/23/22 Moexipril [Univasc] 7.5 mg PO DAILY 07/20/15 07/23/22 Pravastatin Sodium [Pravachol] 40 mg PO DAILY 07/20/15 07/23/22 Latanoprost [Xalatan 0.005%] 1 drop BOTH EYES HS 10/15/16 07/23/22 nadoloL [Nadolol] 40 mg PO DAILY 10/15/16 07/23/22 Albuterol Nebulized [Ventolin 2.5 mg INHALATION RT-TID 08/11/17 07/23/22 Nebulized] Budesonide/Formoterol Fumarate 1 puff INHALATION RT-BID 08/11/17 07/23/22 [Symbicort 160-4.5 Mcg Inhaler] Omeprazole 20 mg PO DAILY 06/25/20 07/23/22 Verapamil HCl [Verapamil ER] 240 mg PO BID 08/07/20 07/23/22 cycloSPORINE 0.05% OPHTH SOLN 1 drop BOTH EYES BID 08/07/20 07/23/22 [Restasis] HYDROcodone/APAP 10-325MG [[place] 1 tab PO QID 11/12/20 07/23/22 10-325] Potassium Chloride ER [K-Dur 20] 20 meq PO DAILY 07/23/22 07/23/22 Previous Rx's Medication Instructions Recorded Furosemide [Lasix] 20 mg PO DAILY 30 Days #30 tab 08/09/20 Magnesium Oxide [Magox 400] 400 mg PO DAILY 30 Days #30 tablet 08/09/20 Allergies Allergy/AdvReac Type Severity Reaction Status Date / Time No Known Allergies Allergy Verified 07/23/22 17:05 Review of Systems ROS Statement: Those systems with pertinent positive or pertinent negative responses have been documented in the HPI. ROS Other: All systems not noted in ROS Statement are negative. Past Medical History Past Medical History: Atrial Fibrillation, Asthma, COPD, GERD/Reflux, GI Bleed, Hyperlipidemia, Hypertension, Osteoarthritis (OA), Pneumonia, Vascular Disorder Additional Past Medical History / Comment(s): [place], Bronchitis, gastric ulcer, diverticular disease, lower GI bleed/AV malformation with ablation, benign colon polyp, borderline hyperlipidemia, arthritis mostly in back, slight bilateral glaucoma, varicosities. History of Any Multi-Drug Resistant Organisms: None Reported Past Surgical History: Adenoidectomy, Appendectomy, Heart Catheterization, Hysterectomy, Tonsillectomy, Tubal Ligation Additional Past Surgical History / Comment(s): Colonoscopy/benign polypectomy/AV malformation ablation, bilateral cataract removals, watchmen procedure Past Anesthesia/Blood Transfusion Reactions: No Reported Reaction Additional Past Anesthesia/Blood Transfusion Reaction / Comment(s): never recieved blood before. Past Psychological History: No Psychological Hx Reported Smoking Status: Never smoker, Second hand smoke exposure Past Alcohol Use History: None Reported Past Drug Use History: None Reported - Past Family History Father Family Medical History: COPD Additional Family Medical History / Comment(s): EMPHYSEMA Mother Family Medical History: Osteoarthritis (OA) Additional Family Medical History / Comment(s): EMPHYSEMA, BOWEL OBSTRUCTION/COLOSTOMY General Exam - General Exam Comments Initial Comments: GENERAL: Patient is well-developed and well-nourished. Patient is nontoxic and well- hydrated and is in no acute distress. ENT: Neck is soft and supple. No significant lymphadenopathy is noted. Oropharynx is clear. Moist mucous membranes. Neck has full range of motion without eliciting any pain. EYES: The sclera were anicteric and conjunctiva were pink and moist. Extraocular movements were intact and pupils were equal round and reactive to light. Eyelids were unremarkable. PULMONARY: Unlabored respirations. Good breath sounds bilaterally. No audible rales rhonchi or wheezing was noted. CARDIOVASCULAR: There is a regular rate and rhythm without any murmurs gallops or rubs. ABDOMEN: Soft and nontender with normal bowel sounds. SKIN: Skin is clear with no lesions or rashes and otherwise unremarkable. NEUROLOGIC: Patient is alert and oriented 2. Cranial nerves II through XII are grossly intact. Motor and sensory are also intact. Normal speech, volume and content. Symmetrical smile. MUSCULOSKELETAL: Normal extremities with adequate strength and full range of motion. No lower extremity swelling or edema. No calf tenderness. LYMPHATICS: No significant lymphadenopathy is noted PSYCHIATRIC: Normal psychiatric evaluation. Limitations: altered mental status Course Vital Signs 07/23/22 07/23/22 14:50 18:33 Temperature 97.9 F Pulse Rate 76 82 Respiratory 18 18 Rate Blood Pressure 166/73 169/83 O2 Sat by Pulse 94 L 95 Oximetry Medical Decision Making - Medical Decision Making EKG interpreted by myself shows a sinus rhythm with occasional PVC at 79 bpm IN interval is 198 QRS is 92 QT interval [address] segment elevation or depression Was pt. sent in by a medical professional or institution ([facility], [employer]ER, urgent care, hospital, or [facility]...) When possible be specific @ -No Did you speak to anyone other than the patient for history (EMS, parent, family, police, friend...)? What history was obtained from this source @ -Daughter gave most of the history since patient was altered Did you review nursing and triage notes (agree or disagree)? Why? @ -I reviewed and agree with nursing and triage notes Were old charts reviewed (outside hosp., previous admission, EMS record, old EKG , old radiological studies, urgent care reports/EKG's, [facility] records)? Report findings @ -Prior charts and labs were reviewed on this patient Differential Diagnosis (chest pain, altered mental status, abdominal pain women, abdominal pain men, vaginal bleeding, weakness, fever, dyspnea, syncope, headache, dizziness, GI bleed, back pain, seizure, CVA, palpatations, mental health, musculoskeletal)? @ -Differential Altered Mental Status: Hypoglycemia, DKA, hypercapnia, ETOH, overdose, CO poisoning, trauma, myxedema coma, HTN encephalopathy, infection, encephalitis, psychosis, intercranial hemorrhage, hepatic encephalopathy, meningitis, CVA, this is not meant to be an all-inclusive list EKG interpreted by me (3pts min.). @ -As above X-rays interpreted by me (1pt min.). @ -X-ray was interpreted by myself shows no acute abnormality. CT interpreted by me (1pt min.). @ -CT of the brain was interpreted by myself shows no acute abnormality UCT of the head isted by me (1pt. min.). @ -None done What testing was considered but not performed or refused? (CT, X-rays, U/S, labs)? Why? @ -None What meds were considered but not given or refused? Why? @ -None Did you discuss the management of the patient with other professionals (professionals i.e. , PA, REAL TIME TRADER, lab, RT, psych nurse, mental health social worker, robot technician, teacher, commercial account officer, geriatric case manager)? Give summary @ -I spoke with Dr. Pelaez he agreed to admit the patient Was smoking cessation discussed for >3mins.? @ -No Was critical care preformed (if so, how long)? @ -No Were there social determinants of health that impacted care today? How? (Homelessness, low income, unemployed, alcoholism, drug addiction, transportat ion, low edu. Level, literacy, decrease access to med. care, correction, rehab)? @ -No Was there de-escalation of care discussed even if they declined (Discuss DNR or withdrawal of care, Hospice)? DNR status @ -No What co-morbidities impacted this encounter? (DM, HTN, Smoking, COPD, CAD, Cancer, CVA, ARF, Chemo, Hep., AIDS, mental health diagnosis, sleep apnea, morbid obesity)? @ -None Was patient admitted / discharged? Hospital course, mention meds given and route, prescriptions, significant lab abnormalities, going to OR and other pertinent info. @ -Patient remained altered throughout her ED course according to the daughter. I spoke with Dr. Pelaez he agreed to admit the patient admitted the patient I wrote admitting orders Undiagnosed new problem with uncertain prognosis? @ -No Drug Therapy requiring intensive monitoring for toxicity (Heparin, Nitro, Insulin, Cardizem)? @ -No Were any procedures done? @ -No Diagnosis/symptom? @ -Altered Mental status Acute, or Chronic, or Acute on Chronic? @ -Acute Uncomplicated (without systemic symptoms) or Complicated (systemic symptoms)? @ -Complicated Side effects of treatment? @ -No Exacerbation, Progression, or Severe Exacerbation? @ -No Poses a threat to life or bodily function? How? (Chest pain, [place], MD, pneumonia, PE, COPD, DKA, ARF, appy, cholecystitis, CVA, Diverticulitis, Homicidal, Suicidal, threat to staff... and all critical care pts) @ -No - Lab Data Result diagrams: 07/23/22 17:25 07/23/22 17:25 Lab Results 07/23/22 07/23/22 07/23/22 Range/Units 16:25 17:25 17:25 WBC 8.2 (3.8-10.6) k/uL RBC 3.98 (3.80-5.40) m/uL Hgb 14.1 (11.4-16.0) gm/dL Hct 40.7 (34.0-46.0) % MCV 102.3 H (80.0-100.0) fL MCH 35.4 H (25.0-35.0) pg MCHC 34.6 (31.0-37.0) g/dL RDW 12.9 (11.5-15.5) % Plt Count 194 (150-450) k/uL MPV 10.7 Neutrophils % 67 % Lymphocytes % 20 % Monocytes % 6 % Eosinophils % 3 % Basophils % 0 % Neutrophils # 5.5 (1.3-7.7) k/uL Lymphocytes # 1.7 (1.0-4.8) k/uL Monocytes # 0.5 (0-1.0) k/uL Eosinophils # 0.2 (0-0.7) k/uL Basophils # 0.0 (0-0.2) k/uL Macrocytosis Slight PT 10.2 (9.0-12.0) sec INR 1.0 (<1.2) APTT 22.0 (22.0-30.0) sec Sodium (137-145) mmol/L Potassium (3.5-5.1) mmol/L Chloride (98-107) mmol/L Carbon Dioxide (22-30) mmol/L Anion Gap mmol/L BUN (7-17) mg/dL Creatinine (0.52-1.04) mg/dL Est GFR (CKD-EPI)AfAm (>60 ml/min/1.73 sqM) Est GFR (CKD-EPI)NonAf (>60 ml/min/1.73 sqM) Glucose (74-99) mg/dL Calcium (8.4-10.2) mg/dL Total Bilirubin (0.2-1.3) mg/dL AST (14-36) U/L ALT (4-34) U/L Alkaline Phosphatase (38-126) U/L Troponin I (0.000-0.034) ng/mL Total Protein (6.3-8.2) g/dL Albumin (3.5-5.0) g/dL Urine Color Yellow Urine Appearance Cloudy H (Clear) Urine pH 8.5 H (5.0-8.0) Ur Specific [place] 1.019 (1.001-1.035) Urine Protein 1+ H (Negative) Urine Glucose (UA) Negative (Negative) Urine Ketones Trace H (Negative) Urine Blood Negative (Negative) Urine Nitrite Negative (Negative) Urine Bilirubin Negative (Negative) Urine Urobilinogen <2.0 (<2.0) mg/dL Ur Leukocyte Esterase Trace H (Negative) Urine RBC 1 (0-5) /hpf Urine WBC 4 (0-5) /hpf Ur Squamous Epith Cells 1 (0-4) /hpf Urine Mucus Rare H (None) /hpf 07/23/22 07/23/22 Range/Units 17:25 17:25 WBC (3.8-10.6) k/uL RBC (3.80-5.40) m/uL Hgb (11.4-16.0) gm/dL Hct (34.0-46.0) % MCV (80.0-100.0) fL MCH (25.0-35.0) pg MCHC (31.0-37.0) g/dL RDW (11.5-15.5) % Plt Count (150-450) k/uL MPV Neutrophils % % Lymphocytes % % Monocytes % % Eosinophils % % Basophils % % Neutrophils # (1.3-7.7) k/uL Lymphocytes # (1.0-4.8) k/uL Monocytes # (0-1.0) k/uL Eosinophils # (0-0.7) k/uL Basophils # (0-0.2) k/uL Macrocytosis PT (9.0-12.0) sec INR (<1.2) APTT (22.0-30.0) sec Sodium 142 (137-145) mmol/L Potassium 3.8 (3.5-5.1) mmol/L Chloride 99 (98-107) mmol/L Carbon Dioxide 36 H (22-30) mmol/L Anion Gap 7 mmol/L BUN 24 H (7-17) mg/dL Creatinine 1.12 H (0.52-1.04) mg/dL Est GFR (CKD-EPI)AfAm 54 (>60 ml/min/1.73 sqM) Est GFR (CKD-EPI)NonAf 47 (>60 ml/min/1.73 sqM) Glucose 120 H (74-99) mg/dL Calcium 10.3 H (8.4-10.2) mg/dL Total Bilirubin 0.8 (0.2-1.3) mg/dL AST 31 (14-36) U/L ALT 17 (4-34) U/L Alkaline Phosphatase 72 (38-126) U/L Troponin I 0.014 (0.000-0.034) ng/mL Total Protein 6.4 (6.3-8.2) g/dL Albumin 3.8 (3.5-5.0) g/dL Urine Color Urine Appearance (Clear) Urine pH (5.0-8.0) Ur Specific [place] (1.001-1.035) Urine Protein (Negative) Urine Glucose (UA) (Negative) Urine Ketones (Negative) Urine Blood (Negative) Urine Nitrite (Negative) Urine Bilirubin (Negative) Urine Urobilinogen (<2.0) mg/dL Ur Leukocyte Esterase (Negative) Urine RBC (0-5) /hpf Urine WBC (0-5) /hpf Ur Squamous Epith Cells (0-4) /hpf Urine Mucus (None) /hpf Disposition Clinical Impression: Altered mental status Disposition: ADMITTED IP TO THIS HOSP Referrals: Zbigniew Gary DO [Primary Care Provider] - 1-2 days Time of Disposition: 19:44
[2022-07-23 16:47] LABS: Appearance,Urine Cloudy (Clear); Bilirubin,Urine Negative (Negative); Blood,Urine Negative (Negative); Color,Urine Yellow; Glucose,Urine (UA) Negative (Negative); Ketones,Urine Trace (Negative); Leukocyte Esterase,Urine Trace (Negative); Mucus,Urine Rare /hpf; Nitrite,Urine Negative (Negative); PH, Urine 8.5 (5.0-8.0); Protein,Urine 1+ (Negative); RBC,Urine 1 /hpf (0-5); Specific Gravity,Urine 1.019 (1.001-1.035); Squamous Epithelial Cell,Urine 1 /hpf (0-4); Urobilinogen,Urine <2.0 mg/dL (<2.0); WBC,Urine 4 /hpf (0-5)
[2022-07-23] MEDS ORDERED: SODIUM CHLORIDE 0.9% 500 ML 500 ML IV ONE (17:25)
[2022-07-23 17:40] LABS: Albumin 3.8 g/dL (3.5-5.0); Calcium 10.3 mg/dL (8.4-10.2); Potassium 3.8 mmol/L (3.5-5.1); Total Bilirubin 0.8 mg/dL (0.2-1.3); Total Protein 6.4 g/dL (6.3-8.2)
[2022-07-23 17:46] LABS: Basophils % (A) 0 %; Eosinophils # (A) 0.2 k/uL (0-0.7); Eosinophils % (A) 3 %; HCT 40.7 % (34.0-46.0); HGB 14.1 gm/dL (11.4-16.0); Lymphocytes # (A) 1.7 k/uL (1.0-4.8); Lymphocytes % (A) 20 %; MCH 35.4 pg (25.0-35.0); MCHC 34.6 g/dL (31.0-37.0); MCV 102.3 fL (80.0-100.0); Macrocytosis Slight; Mean Platelet Volume 10.7; Monocytes # (A) 0.5 k/uL (0-1.0); Monocytes % (A) 6 %; Neutrophils # (A) 5.5 k/uL (1.3-7.7); Neutrophils % (A) 67 %; Platelet Count 194 k/uL (150-450); RBC 3.98 m/uL (3.80-5.40); RDW 12.9 % (11.5-15.5); WBC 8.2 k/uL (3.8-10.6)
--- NOTE | 2022-07-23 17:51 | XR ---
EXAMINATION TYPE: XR chest 2V DATE OF EXAM: 07/23/2022 5:44 PM COMPARISON: Chest radiographs from 11/12/2020 TECHNIQUE: XR chest 2V Frontal and lateral views of the chest. CLINICAL INDICATION:Female, 77 years old with history of altered mental status; FINDINGS: Lungs/Pleura: There is no evidence of pleural effusion, focal consolidation, or pneumothorax. Pulmonary vascularity: Unremarkable. Heart/mediastinum: Cardiomediastinal silhouette is enlarged and stable. Atherosclerotic calcificatio ns are seen in the aorta. Musculoskeletal: No acute osseous pathology. IMPRESSION: 1. No acute cardiopulmonary disease/process. 2. Similar cardiomegaly
[2022-07-23 17:57] LABS: Prothrombin Time 10.2 sec (9.0-12.0)
--- NOTE | 2022-07-23 18:16 | CT ---
EXAMINATION TYPE: CT brain wo con CT DLP: 1158.4 mGycm, Automated exposure control for dose reduction was used. DATE OF EXAM: 07/23/2022 5:59 PM COMPARISON: 02/08/2011 CLINICAL INDICATION:Female, 77 years old with history of Altered mental status, AMS TECHNIQUE: Brain: Axial CT images of the brain were obtained with coronal and sagittal reformats created and rev iewed. Contrast used: None. Oral contrast used: None. FINDINGS: Brain: Extra-axial spaces: No abnormal extra-axial fluid collections. Ventricular system: Within normal limits Cerebral parenchyma: No acute intraparenchymal hemorrhage or mass effect. The maravilla-white junction is well differentiated. Scattered hypoattenuating areas are seen within the white matter. Cerebellum: Unremarkable. Mass effect: No evidence of midline shift. Intracranial vasculature: Atherosclerotic calcifications of the intracranial vessels. Soft tissues: Normal. Calvarium/osseous structures: No depressed skull fracture. Paranasal sinuses and mastoid air cells: Mild scattered paranasal sinus disease. Visualized orbits: Orbital contents are intact. IMPRESSION: 1. No acute intracranial process. 2. Nonspecific white matter changes, likely secondary to chronic small vessel ischemic disease.
[2022-07-23] MEDS ORDERED: SODIUM CHLORIDE 0.9% 1,000 ML IV ONE (19:44)
[2022-07-23] MEDS ORDERED: BACLOFEN 10 MG TAB PO PRN (19:45)
[2022-07-23] MEDS: HYDROcodone/APAP 10-325MG 1 EACH TAB PO SCH (21:18)
[2022-07-23] MEDS: SYMBICORT 160-4.5 MCG INHALER INHALATION SCH (21:48)
[2022-07-23] MEDS: ALBUTEROL NEBULIZED 2.5 MG/3 ML INHALATION SCH (21:48)
[2022-07-23] MEDS: VERAPAMIL SR 240 MG TABLET.ER PO SCH (22:04)
[2022-07-23] MEDS: cycloSPORINE 0.05% OPHTH 0.4 ML DROPERETTE BOTH EYES SCH (22:04)
[2022-07-23] MEDS: LATANOPROST 0.005% OPHTH DROPS 2.5 ML BTL BOTH EYES SCH (22:04)
--- NOTE | 2022-07-23 23:23 | P.HPIM ---
History of Present Illness H&P Date: 07/23/22 Chief Complaint: Altered mentation his is a very pleasant 77-year-old patient of Dr. Zbigniew Gary. Chronic stable medical conditions include GERD, hyperlipidemia, hypertension, osteoarthritis, paroxysmal atrial fibrillation, varicose veins, diverticulosis. very hard of hearing and does lipreading. watchman procedure done by Dr. Concepcion at [facility] on 05/2020.. Patient is Dr. was present to give medical history to the ER physician. The daughter was called by another family member for altered mental status. Patient was not making sense. She was trying to find a hearing aids even though they were in the hand and patient was extremely argumentative even though she is not at baseline. Patient denies any change of vision. No fever no chills. No weakness on a particular site. Patient did feel that she was confused today. Review of systems: GEN.: Tired EYES: None HEENT: Hard of hearing NECK: None RESPIRATORY: None CARDIOVASCULAR: None GASTROINTESTINAL: None GENITOURINARY: None MUSCULOSKELETAL: Joint pains LYMPHATICS: None HEMATOLOGICAL: None PSYCHIATRY: None NEUROLOGICAL: As above Past medical history to include: Asthma, GERD, hyperlipidemia, hypertension, osteoarthritis, paroxysmal atrial fibrillation, varicose veins, stomach ulcer, diverticulitis. Esophagitis, gastritis, internal/external hemorrhoids, watchman procedure, esophagitis, internal hemorrhoids Social history: Does not smoke or drink Cold. Lives alone. Physical examination: VITAL SIGNS: 97.9, 87, 18, 143/58, 94% room air GENERAL: BMI 20.5, reclining bed comfortable EYES: Pupils equal. Conjunctiva pale. HEENT: External appearance of nose and ears normal, oral cavity grossly normal. Very hard of hearing NECK: JVD not raised; masses not palpable. HEART: First and second heart sounds are normal; no edema. LUNGS: Respiratory rate normal, decreased breaths sounds. ABDOMEN: Soft, nontender, liver spleen not palpable, no masses palpable. PSYCH: Alert and oriented x3; mood and affect normal. Some loss of memory the previous events of the day. MUSCULAR skeletal:: Evidence of OA especially in the hands NEUROLOGICAL: Cranial nerves grossly intact; no facial asymmetry, power and sensation grossly intact. LYMPHATICS: No lymph nodes palpable in the axilla and neck INVESTIGATIONS, reviewed in the clinical context: White count 8.2 hemoglobin 14.1 platelets 194 potassium 3.8 BUN 24 creatinine 1.12 potassium 10.3 EKG tracing personally reviewed by me-normal sinus rhythm. T-wave changes. Chest x-ray film personally reviewed by me-unremarkable Computed tomography scan brain: Nonspecific white matter changes. UA: Protein 1+ negative nitrite Assessment and plan: -Episode of of agitation which is out of sorts for her. Acute forgetfulness. Different behavior. Rule out seizures EEG. -Internal hemorrhoids. - moderate persistent asthma, continue with Symbicort -Chronic kidney disease, stage III, likely nephrosclerosis Hold Lasix -GERD, on PPI -Hyperlipidemia, on Pravachol -Essential hypertension, on verapamil ER, Univasc, nadolol -Primary osteoarthritis, use Tylenol when necessary -Paroxysmal atrial fibrillation currently in sinus rhythm -Chronic Esophagitis and gastritis., On PPI -Very hard of hearing Hearing aids -Abnormal EKG. 2-D echo. Consult cardiology IV fluids. Hold Lasix. Repeat labs. Renal ultrasound. UA. Consult neurology. MRI. EEG. 2-D echo. Consult ecology. Discussed with patient Past Medical History Past Medical History: Atrial Fibrillation, Asthma, COPD, GERD/Reflux, GI Bleed, Hyperlipidemia, Hypertension, Osteoarthritis (OA), Pneumonia, Vascular Disorder Additional Past Medical History / Comment(s): [place], Bronchitis, gastric ulcer, diverticular disease, lower GI bleed/AV malformation with ablation, benign colon polyp, borderline hyperlipidemia, arthritis mostly in back, slight bilateral glaucoma, varicosities. History of Any Multi-Drug Resistant Organisms: None Reported Past Surgical History: Adenoidectomy, Appendectomy, Heart Catheterization, Hysterectomy, Tonsillectomy, Tubal Ligation Additional Past Surgical History / Comment(s): Colonoscopy/benign polypectomy/AV malformation ablation, bilateral cataract removals, watchmen procedure Past Anesthesia/Blood Transfusion Reactions: No Reported Reaction Additional Past Anesthesia/Blood Transfusion Reaction / Comment(s): never reciev ed blood before. Past Psychological History: No Psychological Hx Reported Smoking Status: Never smoker, Second hand smoke exposure Past Alcohol Use History: None Reported Past Drug Use History: None Reported - Past Family History Father Family Medical History: COPD Additional Family Medical History / Comment(s): EMPHYSEMA Mother Family Medical History: Osteoarthritis (OA) Additional Family Medical History / Comment(s): EMPHYSEMA, BOWEL OBSTRUCTION/COLOSTOMY Medications and Allergies Home Medications Medication Instructions Recorded Confirmed Type Baclofen [Lioresal] 10 mg PO TID PRN 07/20/15 07/23/22 History Moexipril [Univasc] 7.5 mg PO DAILY 07/20/15 07/23/22 History Pravastatin Sodium [Pravachol] 40 mg PO DAILY 07/20/15 07/23/22 History Latanoprost [Xalatan 0.005%] 1 drop BOTH EYES HS 10/15/16 07/23/22 History nadoloL [Nadolol] 40 mg PO DAILY 10/15/16 07/23/22 History Albuterol Nebulized [Ventolin 2.5 mg INHALATION RT-TID 08/11/17 07/23/22 History Nebulized] Budesonide/Formoterol Fumarate 1 puff INHALATION RT-BID 08/11/17 07/23/22 History [Symbicort 160-4.5 Mcg Inhaler] Omeprazole 20 mg PO DAILY 06/25/20 07/23/22 History Verapamil HCl [Verapamil ER] 240 mg PO BID 08/07/20 07/23/22 History cycloSPORINE 0.05% OPHTH SOLN 1 drop BOTH EYES BID 08/07/20 07/23/22 History [Restasis] Furosemide [Lasix] 20 mg PO DAILY 30 Days #30 tab 08/09/20 07/23/22 Rx Magnesium Oxide [Magox 400] 400 mg PO DAILY 30 Days #30 tablet 08/09/20 07/23/22 Rx HYDROcodone/APAP 10-325MG [[place] 1 tab PO QID 11/12/20 07/23/22 History 10-325] Potassium Chloride ER [K-Dur 20] 20 meq PO DAILY 07/23/22 07/23/22 History Allergies Allergy/AdvReac Type Severity Reaction Status Date / Time No Known Allergies Allergy Verified 07/23/22 17:05 Physical Exam Vitals: Vital Signs Temp Pulse Resp BP Pulse Ox 07/23/22 18:33 82 18 169/83 95 07/23/22 14:50 97.9 F 76 18 166/73 94 L Intake and Output 07/23/22 07/23/22 07/23/22 06:59 14:59 22:59 Other: Weight 47.627 kg Results CBC & Chem 7: 07/23/22 17:25 07/23/22 17:25 Labs: Abnormal Lab Results - Last 24 Hours (Table) 07/23/22 07/23/22 07/23/22 Range/Units 16:25 17:25 17:25 MCV 102.3 H (80.0-100.0) fL MCH 35.4 H (25.0-35.0) pg Carbon Dioxide 36 H (22-30) mmol/L BUN 24 H (7-17) mg/dL Creatinine 1.12 H (0.52-1.04) mg/dL Glucose 120 H (74-99) mg/dL Calcium 10.3 H (8.4-10.2) mg/dL Urine Appearance Cloudy H (Clear) Urine pH 8.5 H (5.0-8.0) Urine Protein 1+ H (Negative) Urine Ketones Trace H (Negative) Ur Leukocyte Esterase Trace H (Negative) Urine Mucus Rare H (None) /hpf
[2022-07-24] MEDS ORDERED: MELATONIN 1 MG TAB PO STA (01:28)
--- NOTE | 2022-07-24 07:56 | US ---
EXAMINATION TYPE: US kidneys/renal and bladder DATE OF EXAM: 07/23/2022 COMPARISON: CT abdomen 06/26/2020 CLINICAL HISTORY: Evaluate CK D. CKD EXAM MEASUREMENTS: Right Kidney: 6.6 x 3.6 x 3.2 cm Left Kidney: 9.0 x 4.9 x 5.0 cm TECHNIQUE: Multiple grayscale ultrasound images of the kidneys and urinary bladder. Right Kidney: No hydronephrosis or masses seen Left Kidney: No hydronephrosis or masses seen Bladder: Empty Bilateral Jets seen: No There is no evidence for hydronephrosis at this point in time. No nephrolithiasis is seen. Cortical medullary differentiation is maintained bilaterally. No masses are identified. The urinary bladder is empty limiting examination. IMPRESSION: No hydronephrosis or nephrolithiasis.
[2022-07-24 08:33] LABS: African American GFR (CKD) 74 (>60 ml/min/1.73 sqM); Anion Gap 3 mmol/L; Blood Urea Nitrogen 17 mg/dL (7-17); Calcium 9.1 mg/dL (8.4-10.2); Carbon Dioxide 34 mmol/L (22-30); Chloride 103 mmol/L (98-107); Glucose 74 mg/dL (74-99); Non-African American GFR(CKD) 64 (>60 ml/min/1.73 sqM); Potassium 3.5 mmol/L (3.5-5.1); Sodium 140 mmol/L (137-145)
[2022-07-24] MEDS ORDERED: POTASSIUM CHLORIDE ER 20 MEQ TAB.ER PO STA (08:45)
[2022-07-24] MEDS: VERAPAMIL SR 240 MG TABLET.ER PO SCH ×2 (08:46→23:06)
[2022-07-24] MEDS: PRAVASTATIN SODIUM 40 MG TAB PO SCH (08:46)
[2022-07-24] MEDS: HYDROcodone/APAP 10-325MG 1 EACH TAB PO SCH ×2 (08:47→14:29)
[2022-07-24] MEDS: PANTOPRAZOLE 40 MG TABLET PO SCH (08:47)
[2022-07-24] MEDS: lisinopriL 10 MG TAB PO SCH (08:47)
[2022-07-24] MEDS: MAGNESIUM OXIDE 400 MG TAB PO SCH (08:47)
[2022-07-24] MEDS: LATANOPROST 0.005% OPHTH DROPS 2.5 ML BTL BOTH EYES SCH ×3 (08:48→23:06)
[2022-07-24] MEDS: cycloSPORINE 0.05% OPHTH 0.4 ML DROPERETTE BOTH EYES SCH ×3 (08:56→23:06)
[2022-07-24] MEDS ORDERED: FUROSEMIDE 20 MG TAB PO SCH (09:00)
[2022-07-24] MEDS: SYMBICORT 160-4.5 MCG INHALER INHALATION SCH ×2 (09:05→20:43)
[2022-07-24] MEDS: ALBUTEROL NEBULIZED 2.5 MG/3 ML INHALATION SCH ×3 (09:05→20:43)
[2022-07-24] MEDS: POTASSIUM CHLORIDE ER 20 MEQ TAB.ER PO SCH (09:25)
--- NOTE | 2022-07-24 09:51 | P.CRDCN ---
History of Present Illness Consult date: 07/24/22 Reason for Consult (text): Abnormal EKG History of present illness: HISTORY OF PRESENT ILLNESS: This is a 77-year-old female patient of Dr. Mckee with a past medical history significant for paroxysmal atrial fibrillation status post watchman procedure, COPD, hypertension, hyperlipidemia, and previous GI bleed, history of pulmonary embolism status post IVC filter placement in 2020. We have been asked see the patient for abnormal EKG. Patient presented to the emergency center due to mental status changes and confusion. Patient normally has no neurologic deficits. Patient denies having any chest pain, shortness of breath. She is e xtremely hard of hearing and full history is not able to be obtained from the patient. EKG reveals sinus rhythm with nonspecific T-wave changes, similar to previous EKGs. Repeat EKG has been ordered Chest x-ray no acute cardiopulmonary process. Similar cardiomegaly CAT scan of the brain no acute intracranial process. Nonspecific white matter changes chronic small vessel ischemic disease. WBC 8.2, hemoglobin 14.1, platelet count 194. INR 1.0. Sodium 142, potassium 3.8, chloride 99, CO2 36, BUN 24 creatinine 1.12. Blood sugar 120. Calcium 10.3. Liver function tests normal. Troponin negative 1. Urinalysis negative for infection. Renal ultrasound reveals no hydronephrosis or nephrolithiasis. Home cardiac medications: Lasix 20 mg daily, magnesium 400 mg daily, nadolol 40 mg daily, potassium 20 mEq daily, pravastatin 40 mg daily, verapamil 240 mg twice daily. Most recent echocardiogram obtained in November 2021 reveals EF of 55-60%, moderate concentric left hypertrophy. Aortic valve is thickened and calcified. Moderate mitral regurgitation. Mild tricuspid regurgitation, normal pulmonary artery systolic pressure. Mild pulmonary regurgitation. Patient underwent Lexiscan stress test in August 2018 which was negative for reversible ischemia REVIEW OF SYSTEMS: At the time of my exam: Limited due to patient's mental status and hard of hearing CARDIOVASCULAR: Denies chest pain. RESPIRATORY: Denies shortness of breath. PHYSICAL EXAM: VITAL SIGNS: Reviewed. Heart rate in the 50s and 60s, blood pressure 148/68, pulse ox 92-99% on room air GENERAL: Well-developed in no acute distress. Hard of hearing. HEENT: Head is normocephalic. Pupils are equal, round. Sclerae anicteric. Mucous membranes of the mouth are somewhat dry. Neck supple. No JVD or thyromegaly LUNGS: Respirations even and unlabored. Lungs essentially clear to auscultation bilaterally. HEART: Regular rate and rhythm. S1 and S2 heard. ABDOMEN: Soft. Nondistended. Nontender. EXTREMITIES: Normal range of motion. No clubbing or cyanosis. Peripheral pulses intact. No lower extremity edema NEUROLOGIC: Awake and alert. Oriented x 3. ASSESSMENT: Mental status changes EKG with nonspecific T-wave changes similar to previous EKG Paroxysmal atrial fibrillation status post watchman procedure at [facility] 05/2020 COPD Hypertension Hyperlipidemia History of GI bleed Pulmonary embolism status post IVC filter placement PLAN: Continue home cardiac medications Replace potassium Obtain repeat EKG to be scanned into the computer No further cardiac workup at this time. Patient may follow-up with Dr. Jorje Mckee in the office in one to 2 weeks following discharge. Nurse practitioner note has been reviewed by physician. Signing provider agrees with the documented findings, assessment, and plan of care. Past Medical History Past Medical History: Atrial Fibrillation, Asthma, COPD, GERD/Reflux, GI Bleed, Hyperlipidemia, Hypertension, Osteoarthritis (OA), Pneumonia, Vascular Disorder Additional Past Medical History / Comment(s): YSLETA DEL SUR, Bronchitis, gastric ulcer, diverticular disease, lower GI bleed/AV malformation with ablation, benign colon polyp, borderline hyperlipidemia, arthritis mostly in back, slight bilateral glaucoma, varicosities. History of Any Multi-Drug Resistant Organisms: None Reported Past Surgical History: Adenoidectomy, Appendectomy, Heart Catheterization, Hyst erectomy, Tonsillectomy, Tubal Ligation Additional Past Surgical History / Comment(s): Colonoscopy/benign polypectomy/AV malformation ablation, bilateral cataract removals, watchmen procedure Past Anesthesia/Blood Transfusion Reactions: No Reported Reaction Additional Past Anesthesia/Blood Transfusion Reaction / Comment(s): never recieved blood before. Past Psychological History: No Psychological Hx Reported Smoking Status: Never smoker, Second hand smoke exposure Past Alcohol Use History: None Reported Past Drug Use History: None Reported - Past Family History Father Family Medical History: COPD Additional Family Medical History / Comment(s): EMPHYSEMA Mother Family Medical History: Osteoarthritis (OA) Additional Family Medical History / Comment(s): EMPHYSEMA, BOWEL OBSTRUCTIO N/COLOSTOMY Medications and Allergies Home Medications Medication Instructions Recorded Confirmed Type Baclofen [Lioresal] 10 mg PO TID PRN 07/20/15 07/23/22 History Moexipril [Univasc] 7.5 mg PO DAILY 07/20/15 07/23/22 History Pravastatin Sodium [Pravachol] 40 mg PO DAILY 07/20/15 07/23/22 History Latanoprost [Xalatan 0.005%] 1 drop BOTH EYES HS 10/15/16 07/23/22 History nadoloL [Nadolol] 40 mg PO DAILY 10/15/16 07/23/22 History Albuterol Nebulized [Ventolin 2.5 mg INHALATION RT-TID 08/11/17 07/23/22 History Nebulized] Budesonide/Formoterol Fumarate 1 puff INHALATION RT-BID 08/11/17 07/23/22 History [Symbicort 160-4.5 Mcg Inhaler] Omeprazole 20 mg PO DAILY 06/25/20 07/23/22 History Verapamil HCl [Verapamil ER] 240 mg PO BID 08/07/20 07/23/22 History cycloSPORINE 0.05% OPHTH SOLN 1 drop BOTH EYES BID 08/07/20 07/23/22 History [Restasis] Furosemide [Lasix] 20 mg PO DAILY 30 Days #30 tab 08/09/20 07/23/22 Rx Magnesium Oxide [Magox 400] 400 mg PO DAILY 30 Days #30 tablet 08/09/20 07/23/22 Rx HYDROcodone/APAP 10-325MG [[place] 1 tab PO QID 11/12/20 07/23/22 History 10-325] Potassium Chloride ER [K-Dur 20] 20 meq PO DAILY 07/23/22 07/23/22 History Allergies Allergy/AdvReac Type Severity Reaction Status Date / Time No Known Allergies Allergy Verified 07/23/22 17:05 Physical Exam Vitals: Vital Signs Temp Pulse Resp BP Pulse Ox 07/24/22 07:51 64 18 148/68 92 L 07/24/22 06:44 53 L 16 116/60 99 07/24/22 05:41 63 16 121/68 98 07/24/22 05:13 59 L 16 98/58 92 L 07/24/22 03:36 70 18 99/61 93 L 07/24/22 01:40 68 158/77 94 L 07/24/22 01:30 71 158/77 94 L 07/24/22 01:20 82 158/77 07/24/22 01:10 73 158/77 07/24/22 01:00 72 158/77 07/24/22 00:50 73 158/77 07/24/22 00:40 71 158/77 07/24/22 00:30 73 158/77 07/24/22 00:20 77 158/77 07/24/22 00:10 74 158/77 07/24/22 00:00 72 158/77 07/23/22 23:50 74 158/77 07/23/22 23:40 73 158/77 07/23/22 23:34 73 18 158/77 93 L 07/23/22 23:30 77 143/58 07/23/22 23:20 75 143/58 07/23/22 23:10 143/58 07/23/22 23:00 143/58 07/23/22 22:50 143/58 07/23/22 22:40 143/58 07/23/22 22:30 80 143/58 07/23/22 22:20 80 143/58 07/23/22 22:10 81 143/58 07/23/22 22:00 85 143/58 07/23/22 21:50 77 143/58 07/23/22 21:40 78 143/58 07/23/22 21:30 75 143/58 07/23/22 21:22 87 18 143/58 94 L 07/23/22 21:20 84 07/23/22 21:10 85 07/23/22 21:00 81 07/23/22 20:50 84 07/23/22 20:40 85 07/23/22 18:40 169/83 07/23/22 18:33 82 18 169/83 95 07/23/22 18:30 166/82 92 L 07/23/22 18:20 166/82 93 L 07/23/22 18:10 181/86 95 07/23/22 18:00 94 L 07/23/22 17:40 80 167/87 93 L 07/23/22 17:30 80 151/89 94 L 07/23/22 14:50 97.9 F 76 18 166/73 94 L Results 07/23/22 17:25 04/04/23 06:56 Cardiac Enzymes 07/23/22 07/23/22 Range/Units 17:25 17:25 AST 31 (14-36) U/L Troponin I 0.014 (0.000-0.034) ng/mL Coagulation 07/23/22 Range/Units 17:25 PT 10.2 (9.0-12.0) sec APTT 22.0 (22.0-30.0) sec CBC 07/23/22 Range/Units 17:25 WBC 8.2 (3.8-10.6) k/uL RBC 3.98 (3.80-5.40) m/uL Hgb 14.1 (11.4-16.0) gm/dL Hct 40.7 (34.0-46.0) % Plt Count 194 (150-450) k/uL Comprehensive Metabolic Panel 07/23/22 07/24/22 Range/Units 17:25 06:56 Sodium 142 140 (137-145) mmol/L Potassium 3.8 3.5 (3.5-5.1) mmol/L Chloride 99 103 (98-107) mmol/L Carbon Dioxide 36 H 34 H (22-30) mmol/L BUN 24 H 17 (7-17) mg/dL Creatinine 1.12 H 0.87 (0.52-1.04) mg/dL Glucose 120 H 74 (74-99) mg/dL Calcium 10.3 H 9.1 (8.4-10.2) mg/dL AST 31 (14-36) U/L ALT 17 (4-34) U/L Alkaline Phosphatase 72 (38-126) U/L Total Protein 6.4 (6.3-8.2) g/dL Albumin 3.8 (3.5-5.0) g/dL Current Medications Generic Name Dose Route Start Last Admin Trade Name Freq PRN Reason Stop Dose Admin Hydrocodone Bitart/Acetaminophen 1 each 07/23/22 22:00 07/23/22 21:18 Hydrocodone/Apap 10-325mg 1 Each Tab PO 1 each QID RIGOBERTO Administration Albuterol Sulfate 2.5 mg 07/23/22 20:00 07/23/22 21:48 Albuterol Nebulized 2.5 Mg/3 Ml INHALATION Not Given RT-TID RIGOBERTO Baclofen 10 mg 07/23/22 19:45 Baclofen 10 Mg Tab PO TID PRN Muscle Spasm Budesonide/Formoterol Fumarate 1 puff 07/23/22 20:00 07/23/22 21:48 Symbicort 160-4.5 Mcg Inhaler INHALATION Not Given RT-BID RIGOBERTO Cyclosporine 1 drops 07/23/22 21:00 07/23/22 22:04 Cyclosporine 0.05% Ophth 0.4 Ml Droperette BOTH EYES 1 drops BID RIGOBERTO Administration Sodium Chloride 1,000 mls @ 75 mls/hr 07/23/22 19:44 07/23/22 21:17 Saline 0.9% IV 07/24/22 09:03 75 mls/hr .[id number] Administration Latanoprost 1 drops 07/23/22 21:00 07/23/22 22:04 Latanoprost 0.005% Ophth Drops 2.5 Ml Btl BOTH EYES 1 drops HS RIGOBERTO Administration Lisinopril 10 mg 07/24/22 09:00 Lisinopril 10 Mg Tab PO DAILY [facility] Magnesium Oxide 400 mg 07/24/22 09:00 Magnesium Oxide 400 Mg Tab PO DAILY [facility] Nadolol 40 mg 07/24/22 09:00 Nadolol 20 Mg Tab PO DAILY [facility] Pantoprazole Sodium 40 mg 07/24/22 09:00 Pantoprazole 40 Mg Tablet PO DAILY [facility] Potassium Chloride 20 meq 07/24/22 09:00 Potassium Chloride Er 20 Meq Tab.Er PO DAILY [facility] Pravastatin Sodium 40 mg 07/24/22 09:00 Pravastatin Sodium 40 Mg Tab PO DAILY [facility] Verapamil HCl 240 mg 07/23/22 21:00 07/23/22 22:04 Verapamil Sr 240 Mg Tablet.Er PO 240 mg BID RIGOBERTO Administration 07/23/22 17:25 07/24/22 06:56
--- NOTE | 2022-07-24 11:20 | MR ---
EXAMINATION TYPE: MR brain wo/w con DATE OF EXAM: 07/24/2022 10:46 AM CLINICAL INDICATION:Female, 77 years old with history of Altered mental status. Abnormal behavior.; AMS history of lung CA with mets COMPARISON: CT brain 07/23/2022 TECHNIQUE: Multi planar, multi sequence imaging was performed through the brain including: T1, T2, In version recovery, susceptibility weighted imaging and gradient echo imaging and Diffusion weighted im aging. The patient was then given intravenous contrast and multi planar, T1 fat-saturation images wer e obtained. IV Contrast: 5ml cc Gadavist FINDINGS: The maravilla-white junctions, ventricular system, basal cisterns appear unremarkable. Diffusion-weighted imaging shows no evidence of restricted diffusion to suggest acute/subacute infarct. Intracranial art erial flow voids are maintained. Midline structures show no abnormality. Scattered foci and confluent areas of of high T2 signal intensity are seen within the periventricular white matter. After adminis tration of gadolinium, no abnormal enhancement is seen. The bone marrow signal is within normal limits. Paranasal sinuses and mastoid air cells: No significant paranasal sinus disease. Visualized orbits: Bilateral aphakia IMPRESSION: 1. No evidence of intracranial mass, acute/subacute infarct, or abnormal enhancement. 2. Nonspecific white matter changes, likely related to small vessel ischemic disease
--- NOTE | 2022-07-24 14:28 | P.PN ---
Progress Note - Text Progress Note Date: 07/24/22 Chief Complaint: Altered mentation his is a very pleasant 77-year-old patient of Dr. Zbigniew Gary. Chronic stable medical conditions include GERD, hyperlipidemia, hypertension, osteoarthritis, paroxysmal atrial fibrillation, varicose veins, diverticulosis. very hard of hearing and does lipreading. watchman procedure done by Dr. Concepcion at [facility] on 05/2020.. Patient is Dr. was present to give medical history to the ER physician. The daughter was called by another family member for altered mental status. Patient was not making sense. She was trying to find a hearing aids even though they were in the hand and patient was extremely argumentative even though she is not at baseline. Patient denies any change of vision. No fever no chills. No weakness on a particular site. Patient did feel that she was confused today. 07/24/2022: Patient doing better today. Back to her baseline she thinks. No more episodes of forgetfulness. MRI brain unremarkable. EEG results are pending. Echocardiogram results pending. Seen by cardiology. Follow up with Dr. Jorje Mckee in the office. Past medical history to include: Asthma, GERD, hyperlipidemia, hypertension, osteoarthritis, paroxysmal atrial fibrillation, varicose veins, stomach ulcer, diverticulitis. Esophagitis, gastritis, internal/external hemorrhoids, watchman procedure, esophagitis, internal hemorrhoids Social history: Does not smoke or drink Cold. Lives alone. Physical examination: VITAL SIGNS: 98.5, 71, 18, 142/82, 95% room air GENERAL: , reclining bed comfortable EYES: Pupils equal. Conjunctiva pale. HEENT: External appearance of nose and ears normal, oral cavity grossly normal. Very hard of hearing NECK: JVD not raised; masses not palpable. HEART: First and second heart sounds are normal; no edema. LUNGS: Respiratory rate normal, decreased breaths sounds. ABDOMEN: Soft, nontender, liver spleen not palpable, no masses palpable. PSYCH: Alert and oriented x3; mood and affect normal. MUSCULAR skeletal:: Evidence of OA especially in the hands INVESTIGATIONS, reviewed in the clinical context: Ultrasound KUB: Corticomedullary differentiation maintained. Unremarkable MRI brain with and without contrast: Some chronic changes July 24: Potassium 3.5 BUN 17 creatinine 0.87 White count 8.2 hemoglobin 14.1 platelets 194 potassium 3.8 BUN 24 creatinine 1.12 potassium 10.3 EKG tracing personally reviewed by me-normal sinus rhythm. T-wave changes. Chest x-ray film personally reviewed by me-unremarkable Computed tomography scan brain: Nonspecific white matter changes. UA: Protein 1+ negative nitrite Assessment and plan: -Episode of of agitation which is out of sorts for her. Acute forgetfulness. Different behavior. Rule out seizures EEG. MRI brain unremarkable. Pending EEG -Internal hemorrhoids. - moderate persistent asthma, continue with Symbicort -Chronic kidney disease, stage 2, likely nephrosclerosis Hold Lasix. Renal ultrasound unremarkable -GERD, on PPI -Hyperlipidemia, on Pravachol -Essential hypertension, on verapamil ER, Univasc, nadolol -Primary osteoarthritis, use Tylenol when necessary -Paroxysmal atrial fibrillation currently in sinus rhythm -Chronic Esophagitis and gastritis., On PPI -Very hard of hearing Hearing aids -Abnormal EKG. 2-D echo. Seen by cardiac surgery. Follow-up outpatient with Dr. Jorje Mckee IV fluids. Hold Lasix. Pending EEG. 2-D echo. Discussed with patient
[2022-07-24] MEDS: HYDROcodone/APAP 10-325MG 1 EACH TAB PO PRN (15:16)
[2022-07-24 19:51] VITALS: RESP 16
--- NOTE | 2022-07-25 03:48 | EEG ---
ELECTROENCEPHALOGRAM REPORT PREAMBLE: This is a 77-year-old female, who has presented with an episode of altered mental status, in which she was very argumentative and looking for things that were in her hands. CURRENT MEDICATIONS: 1. Albuterol. 2. Baclofen. 3. Symbicort. 4. Xalatan. 5. Zestril. 6. Corgard. 7. Protonix. 8. Pravachol. EEG FINDINGS: This is a 21-channel digital EEG recorded with video component, utilizing 10/20 international system with referential and bipolar montages. Background consists of moderately well-developed and regulated, frequencies of mixed theta and had alpha frequency in 7-8 hertz seen in bihemispheric region. Background is posterior dominant and seems to be reactive to eye opening and closing. Intermittent moderate amplitude delta slowing was also seen. Photic stimulation was not performed. Drowsiness was seen with appearance of bilaterally symmetric theta frequency rhythm. Deeper stages of sleep were not seen. Some intermittent bitemporal sharply contoured theta was seen, but did not appear clearly epileptiform. No definitive focal or generalized epileptiform activity was seen. IMPRESSION: This is an abnormal EEG due to background disorganization and slowing of mild degree. This is suggestive of generalized cerebral dysfunction as can be seen with encephalopathy or medication effect. No epileptiform activity was seen. MMODL / IJN: [id number] / MTDD
[2022-07-25 07:45] VITALS: TEMP 97.6
[2022-07-25] MEDS: PRAVASTATIN SODIUM 40 MG TAB PO SCH (08:43)
[2022-07-25] MEDS: PANTOPRAZOLE 40 MG TABLET PO SCH (08:44)
[2022-07-25] MEDS: HYDROcodone/APAP 10-325MG 1 EACH TAB PO PRN (08:44)
[2022-07-25] MEDS: MAGNESIUM OXIDE 400 MG TAB PO SCH (08:44)
[2022-07-25] MEDS: POTASSIUM CHLORIDE ER 20 MEQ TAB.ER PO SCH (08:45)
[2022-07-25] MEDS: ALBUTEROL NEBULIZED 2.5 MG/3 ML INHALATION SCH ×2 (09:25→12:55)
[2022-07-25] MEDS: SYMBICORT 160-4.5 MCG INHALER INHALATION SCH (09:25)
--- NOTE | 2022-07-25 09:38 | CA ---
Transthoracic Echo Report Name: Nancy Naqvi Age: 77 Gender: F : 1945 Exam Date: 07/24/2022 14:01 Exam Location: [facility] Ht (in): 60 Wt (lb): 105 Ordering Physician: Jovani Pelaez MD Attending/Referring Phys: Professor Of Geography Moni Forrest RDCS Procedure CPT: Indications: abnormal ekg Cardiac Hx: Technical Quality: Fair Contrast 1: Total Dose (mL): Contrast 2: Total Dose (mL): MEASUREMENTS (Male / Female) Normal Values 2D ECHO LV Diastolic Diameter PLAX 3.2 cm 4.2 - 5.9 / 3.9 - 5.3 cm LV Systolic Diameter PLAX 2.5 cm IVS Diastolic Thickness 1.3 cm 0.6 - 1.0 / 0.6 - 0.9 cm LVPW Diastolic Thickness 1.7 cm 0.6 - 1.0 / 0.6 - 0.9 cm LV Relative Wall Thickness 0.9 LA Volume 44.5 cm??? 18 - 58 / 22 - 52 cm??? LA Volume Index 31.3 cm???/m??? 16 - 28 cm???/m??? M-MODE Aortic Root Diameter MM 2.9 cm AV Cusp Separation MM 1.6 cm DOPPLER AV Peak Velocity 149.6 cm/s AV Peak Gradient 9.0 mmHg LVOT Peak Velocity 79.2 cm/s LVOT Peak Gradient 2.5 mmHg MV Area PHT 3.6 cm??? Mitral E Point Velocity 83.7 cm/s Mitral A Point Velocity 68.1 cm/s Mitral E to A Ratio 1.2 MV Deceleration Time 212.2 ms TR Peak Velocity 257.4 cm/s TR Peak Gradient 26.5 mmHg Right Atrial Pressure 3.0 mmHg Pulmonary Artery Systolic Pressu 29.5 mmHg Right Ventricular Systolic Press 29.5 mmHg FINDINGS Left Ventricle Moderately increased septal wall thickness. Severely increased posterior wall thickness. Small left ventricular cavity. Grade 2 diastolic dysfunction. Left ventricular ejection fraction is estimated at 55-60 %. Right Ventricle Normal right ventricular size. Reduced right ventricular global systolic function. Right ventricular systolic pressure within normal limits. Right Atrium Normal right atrial size. Left Atrium Mildly increased left atrial volume. Mitral Valve Mild mitral regurgitation. Aortic Valve Trileaflet aortic valve. Tricuspid Valve Mild tricuspid regurgitation. Pulmonic Valve Mild pulmonic regurgitation. Pericardium No pleural effusion. Small pericardial effusion Aorta Normal size aortic root and proximal ascending aorta. CONCLUSIONS Normal LV size and systolic function. Mild enlargement of left atrium. Mild mitral and tricuspid insufficiency. Small to trivial pericardial effusion Previewed by: Dr. Kait Spangler MD (Electronically Signed) Final Date: 25 July 2022 09:37
[2022-07-25 09:41] VITALS: BP 114/67
[2022-07-25] MEDS: lisinopriL 10 MG TAB PO SCH (09:43)
[2022-07-25] MEDS: VERAPAMIL SR 240 MG TABLET.ER PO SCH (09:44)
[2022-07-25] MEDS ORDERED: FOLIC ACID 1 MG TAB PO SCH (10:00)
[2022-07-25] MEDS ORDERED: PYRIDOXINE 50 MG TAB PO SCH (10:00)
[2022-07-25] MEDS ORDERED: CYANOCOBALAMIN 500 MCG TAB PO SCH (10:00)
--- NOTE | 2022-07-25 10:11 | P.CNNES ---
History of Present Illness Consult date: 07/24/22 Requesting physician: Jovani Pelaez Reason for Consult: Altered mental status History of Present Illness: Patient is a 77-year-old female came to the hospital by ambulance yesterday at 2:44 PM for altered mental status. Patient states that yesterday her granddaughter was staying over with her. Patient's granddaughter noticed that patient was confused, she called her daughter, who came over and patient was very confused, "very rude and mouthy", and very hostile, which she never have done before. There was no facial droop, slurred speech or visual problem and she was still able to walk without any difficulty. Patient remembers everything during the incident, does not have loss of memory. There were no focal symptoms with it. As per EMS flow sheet, when they arrived, it was mentioned that patient went to bed early last night without issue and woke up later than normal that day around noon. Patient was noted to be more confused than normal and was crawling around her apartment looking for her hearing aids. Patient was also noted to have gotten verbally aggressive with family which was completely out of character per family. Patient states she knows something is off but doesn't know what it is. Patient's stroke scale was negative. EKG showed sinus rhythm. Patient's blood pressure was 170/90, pulse rate 80, respiration 20, blood sugar 121. Repeat blood pressure was 198/94. Vital signs on arrival blood pressure 166/73, pulse is 76, temperature 97.9. EKG shows sinus rhythm with occasional ventricular premature complexes. Nonspecific T-wave abnormality. CT head revealed no acute intracranial process. Nonspecific white matter changes, likely secondary to chronic small vessel ischemic disease. Chest x-ray showed similar cardiomegaly. No acute cardiopulmonary process. Abdominal ultrasound was negative for hydronephrosis or nephrolithiasis. Patient had an MRI of the brain, which revealed no evidence of intracranial mass, acute/subacute infarct or abnormal enhancement. Nonsp ecific white matter changes, likely related to small vessel ischemic disease. Blood test shows normal CBC with elevated MCV 102.3. PT/PTT normal, electrolytes are normal, BUN 24 creatinine 1.12. Hepatic panel is normal. Troponin negative. UA negative. Calcium was 10.3, which has come down to 9.1. Patient's recent blood test from 04/27/2022 showed B12 of 398, folate 8.8, a prior B6 was low 5 on 10/14/2013. Patient states she has never smoked, does not drink alcohol, denies diabetes or hypertension. Home medications include pravastatin 40 mg, baclofen 10 mg 3 times a day when necessary, nadolol 40 mg daily, albuterol, omeprazole 20 mg, verapamil 240 mg twice a day, Lasix 20 mg, magnesium, hydrocodone 10/05 mg 4 times a day, potassium. Review of Systems Constitutional: Denies chills, Denies fever Eyes: bilateral dry eye, denies blurred vision, denies diplopia, denies loss of vision, denies tunnel vision/blind spots Ears: bilateral: decreased hearing, deny: ear discharge, earache Ears, nose, mouth and throat: Denies headache, Denies sore throat Cardiovascular: Denies chest pain, Denies shortness of breath Respiratory: Denies cough, Denies excessive sputum Gastrointestinal: Denies abdominal pain, Denies diarrhea, Denies nausea, Denies vomiting Genitourinary: Denies dysuria, Denies hematuria Musculoskeletal: Denies frequent falls, Denies myalgias Integumentary: Denies pruritus, Denies rash Neurological: Reports as per HPI Psychiatric: Denies anxiety, Denies depression Endocrine: Denies fatigue, Denies weight change Past Medical History Past Medical History: Atrial Fibrillation, Asthma, COPD, GERD/Reflux, GI Bleed, Hyperlipidemia, Hypertension, Osteoarthritis (OA), Pneumonia, Vascular Disorder Additional Past Medical History / Comment(s): MASHPEE, Bronchitis, gastric ulcer, diverticular disease, lower GI bleed/AV malformation with ablation, benign colon polyp, borderline hyperlipidemia, arthritis mostly in back, slight bilateral glaucoma, varicosities. History of Any Multi-Drug Resistant Organisms: None Reported Past Surgical History: Adenoidectomy, Appendectomy, Heart Catheterization, Hysterectomy, Tonsillectomy, Tubal Ligation Additional Past Surgical History / Comment(s): Colonoscopy/benign polypectomy/AV malformation ablation, bilateral cataract removals, watchmen procedure Past Anesthesia/Blood Transfusion Reactions: No Reported Reaction Additional Past Anesthesia/Blood Transfusion Reaction / Comment(s): never recieved blood before. Past Psychological History: No Psychological Hx Reported Smoking Status: Never smoker, Second hand smoke exposure Past Alcohol Use History: None Reported Past Drug Use History: None Reported - Past Family History Father Family Medical History: COPD Additional Family Medical History / Comment(s): EMPHYSEMA Mother Family Medical History: Osteoarthritis (OA) Additional Family Medical History / Comment(s): EMPHYSEMA, BOWEL OBSTRUCTION/COLOSTOMY Medications and Allergies Home Medications Medication Instructions Recorded Confirmed Type Baclofen [Lioresal] 10 mg PO TID PRN 07/20/15 07/23/22 History Moexipril [Univasc] 7.5 mg PO DAILY 07/20/15 07/23/22 History Pravastatin Sodium [Pravachol] 40 mg PO DAILY 07/20/15 07/23/22 History Latanoprost [Xalatan 0.005%] 1 drop BOTH EYES HS 10/15/16 07/23/22 History nadoloL [Nadolol] 40 mg PO DAILY 10/15/16 07/23/22 History Albuterol Nebulized [Ventolin 2.5 mg INHALATION RT-TID 08/11/17 07/23/22 History Nebulized] Budesonide/Formoterol Fumarate 1 puff INHALATION RT-BID 08/11/17 07/23/22 History [Symbicort 160-4.5 Mcg Inhaler] Omeprazole 20 mg PO DAILY 06/25/20 07/23/22 History Verapamil HCl [Verapamil ER] 240 mg PO BID 08/07/20 07/23/22 History cycloSPORINE 0.05% OPHTH SOLN 1 drop BOTH EYES BID 08/07/20 07/23/22 History [Restasis] Furosemide [Lasix] 20 mg PO DAILY 30 Days #30 tab 08/09/20 07/23/22 Rx Magnesium Oxide [Magox 400] 400 mg PO DAILY 30 Days #30 tablet 08/09/20 07/23/22 Rx HYDROcodone/APAP 10-325MG [[place] 1 tab PO QID 11/12/20 07/23/22 History 10-325] Potassium Chloride ER [K-Dur 20] 20 meq PO DAILY 07/23/22 07/23/22 History Allergies Allergy/AdvReac Type Severity Reaction Status Date / Time No Known Allergies Allergy Verified 07/23/22 17:05 Physical Examination - Vital Signs Vital Signs: Vital Signs Temp Pulse Resp BP Pulse Ox 07/24/22 18:06 97.9 F 58 L 17 118/66 95 07/24/22 12:37 71 18 142/82 95 07/24/22 09:14 62 07/24/22 09:06 62 07/24/22 09:00 98.5 F 77 16 154/83 07/24/22 07:51 64 18 148/68 92 L 07/24/22 06:44 53 L 16 116/60 99 07/24/22 05:41 63 16 121/68 98 07/24/22 05:13 59 L 16 98/58 92 L 07/24/22 03:36 70 18 99/61 93 L 07/24/22 01:40 68 158/77 94 L 07/24/22 01:30 71 158/77 94 L 07/24/22 01:20 82 158/77 07/24/22 01:10 73 158/77 07/24/22 01:00 72 158/77 07/24/22 00:50 73 158/77 07/24/22 00:40 71 158/77 07/24/22 00:30 73 158/77 07/24/22 00:20 77 158/77 07/24/22 00:10 74 158/77 07/24/22 00:00 72 158/77 07/23/22 23:50 74 158/77 07/23/22 23:40 73 158/77 07/23/22 23:34 73 18 158/77 93 L 07/23/22 23:30 77 143/58 07/23/22 23:20 75 143/58 07/23/22 23:10 143/58 07/23/22 23:00 143/58 07/23/22 22:50 143/58 07/23/22 22:40 143/58 07/23/22 22:30 80 143/58 07/23/22 22:20 80 143/58 07/23/22 22:10 81 143/58 07/23/22 22:00 85 143/58 07/23/22 21:50 77 143/58 07/23/22 21:40 78 143/58 07/23/22 21:30 75 143/58 07/23/22 21:22 87 18 143/58 94 L 07/23/22 21:20 84 07/23/22 21:10 85 07/23/22 21:00 81 07/23/22 20:50 84 07/23/22 20:40 85 Patient is an elderly female, very pleasant, in no acute distress. Patient is alert awake oriented to time place and person. Patient knows it is 07/24/2022 and that she is in [place] in [place]. She could not tell name of the current president, and states that she does not follow the politics. Speech and language functions are normal. Patient can name and repeat very well. No aphasia or dysarthria. Attention, concentration and fund of knowledge is adequate. On cranial nerve examination, pupils are slightly unequal, right pupil is slightly bigger than the left. Her visual jackson are full on confrontation, with no neglect on double simultaneous stimulation. Extraocular muscles are intact with no nystagmus. Face is symmetric, tongue protrudes to the midline. Palatal elevation and sensation normal, hearing is severely decreased, and shoulder shrug normal, facial sensation normal. On muscle strength testing, there is no pronator drift and the strength is normal in arms and legs distally and proximally. Deep tendon reflexes are symmetric 1 at the biceps, 1 brachioradialis, 2 at the knees, 2 ankles and plantars are downgoing bilaterally. Sensory to touch is equal with no neglect on double simultaneous stimulation. Cerebellar function showed no ataxia for [id number] testing. No dysdiadochokinesia. No ataxia for [id number]-[id number] testing on either side. Tone and bulk of muscles normal. Gait deferred.. On general examination, there is no carotid bruit or murmur, S1-S2 audible. Chest is clear on consultation. Abdomen is soft nontender. No organomegaly, bowel sounds present. Peripheral pulses are present. No edema. Results - Laboratory Findings CBC and BMP: 07/23/22 17:25 07/24/22 06:56 Abnormal Lab Findings: Abnormal Labs 07/23/22 07/23/22 07/23/22 16:25 17:25 17:25 MCV 102.3 H MCH 35.4 H Carbon Dioxide 36 H BUN 24 H Creatinine 1.12 H Glucose 120 H Calcium 10.3 H Urine Appearance Cloudy H Urine pH 8.5 H Urine Protein 1+ H Urine Ketones Trace H Ur Leukocyte Esterase Trace H Urine Mucus Rare H 07/24/22 06:56 MCV MCH Carbon Dioxide 34 H BUN Creatinine Glucose Calcium Urine Appearance Urine pH Urine Protein Urine Ketones Ur Leukocyte Esterase Urine Mucus Assessment and Plan Assessment: * 77-year-old female, who had an episode of altered mental status, with ag itation and irritability without loss of memory, or any focal deficits, etiology remains unclear. Symptoms completely resolved. Doubt transient global amnesia, as patient did not lose memory. Patient was just irritable. TIA symptoms in the differential. * History of mild B12, folate and B6 borderline levels * Macrocytosis, due to above * History of atrial fibrillation, status post watchman device at [facility] on 05/27/2020. * History of GI bleed * Hypertension * Hyperlipidemia Plan: * Patient underwent EEG, which was abnormal due to background disorganization and slowing of mild degree. This is suggestive of generalized cerebral dysfunction as can be seen with encephalopathy or medication effect. No epileptiform activity was seen. * MRI brain showed no acute intracranial process. No acute ischemic stroke. Nonspecific white matter changes. I personally reviewed MRI, I agree with the findings. * 2-D echo revealed normal left ventricle size and systolic function with EF 55- 60%. Left atrium is mildly increased in volume. Mild MR. * Carotid Doppler * Patient has history of atrial fibrillation, status post watchman device on 05/27/2020. Consider starting aspirin 81 mg daily, if no contraindications. * Patient also had borderline B12, folate and B6 levels in the past. We will start replacement with these vitamins. * We will try to contact patient's daughter to get collateral history. * Neurology will follow. Thank you for the consult.
--- NOTE | 2022-07-25 10:41 | P.PN ---
Subjective Progress Note Date: 07/25/22 Patient was seen for a follow-up. Patient's daughter was also present today. Patient offers no complaints, back to normal. I spoke to patient's daughter on the phone earlier today. She states that javi marie was delirious, very confused, kept on taking out her hearing aids and then putting it back. She said "they are playing games". Earlier after waking up, patient was blaming her granddaughter for stealing her hearing aids. She was slightly hallucinating, saying that there were 3 hearing aids although there were only 2. She just kept on repeating. She was very "hyper", and gasping for air, flustered confused and yelling. Patient has never acted like this. Apparently the symptoms started when she woke up at noon the day of admission. The symptoms were still slightly present to 7 PM before patient's daughter left although she had calmed down, was not angry anymore but still slightly confused. However by the next day, all symptoms had resolved. Patient's daughter also mentions that patient had history of diverticulosis with recurrent GI bleed. Patient underwent watchman device for atrial fibrillation, and also underwent possibility of IVC filter placement. She was recommended by Dr. Anyi Burgess, not to take any blood thinners in future. Therefore patient is not on any antiplatelet medication either. Objective - Vital Signs Vital signs: Vital Signs Temp 97.6 F 07/25/22 07:00 Pulse 57 L 07/25/22 09:40 Resp 16 07/25/22 08:15 BP 114/67 07/25/22 09:40 Pulse Ox 97 07/25/22 09:40 FiO2 Intake & Output 07/24/22 07/25/22 07/25/22 18:59 06:59 18:59 Weight 47.627 kg Other: Voiding Method Toilet Toilet # Voids 3 - Exam Patient's mental status, speech and language functions are normal. Muscle strength is normal. No ataxia. - Labs CBC & Chem 7: 07/23/22 17:25 07/24/22 06:56 Assessment and Plan Assessment: * 77-year-old female, who had an episode of altered mental status, with agitation and irritability without loss of memory, or any focal deficits, etiology remains unclear. Symptoms completely resolved. Probable transient global amnesia, although not classical, as patient did not lose complete memory of that event. Patient was just irritable, confused, delirious and did lose some memory of the event (ride in the ambulance). TIA also high in the differential. * Left ICA stenosis, moderate degree. * History of mild B12, folate and B6 borderline levels * Macrocytosis, due to above * History of atrial fibrillation, status post watchman device at [facility] on 05/27/2020. * History of GI bleed * Hypertension * Hyperlipidemia Plan: * Patient had a possible TGA versus TIA. * Carotid Doppler revealed moderate stenosis left ICA between 50 and 69%. Nonvisualization of the right vertebral artery. * Patient needs to be on antiplatelet medication. I discussed with patient's daughter in detail. Risks of GI bleed from aspirin versus recurrent stroke/TIA from left ICA stenosis. The benefits of aspirin over be the hemorrhagic risk. Patient's daughter agreed to be started on aspirin 81 mg daily. Also discussed with primary physician, who also agreed. Patient will follow up with vascular surgery Dr. Fields or Dr. Mota in the clinic as outpatient, as patient's daughter is interested in [facility]. * EEG, which was abnormal due to background disorganization and slowing of mild degree. This is suggestive of generalized cerebral dysfunction as can be seen with encephalopathy or medication effect. No epileptiform activity was seen. * MRI brain showed no acute intracranial process. No acute ischemic stroke. Nonspecific white matter changes. I personally reviewed MRI, I agree with the findings. * 2-D echo revealed normal left ventricle size and systolic function with EF 55- 60%. Left atrium is mildly increased in volume. Mild MR. * Patient has history of atrial fibrillation, status post watchman device on 05/27/2020. Consider starting aspirin 81 mg daily, if no contraindications. * Patient also had borderline B12, folate and B6 levels in the past. We will start replacement with these vitamins. * Lipid panel with cholesterol 141, LDL 62, HDL 50 and triglycerides 141. Patient on pravastatin 40 mg, will continue same dose. * Hemoglobin A1c 5.5. * Discussed with patient's daughter in detail, as mentioned above. * Neurologically clear for discharge.
[2022-07-25 10:54] VITALS: PULSE 56
--- NOTE | 2022-07-25 11:52 | US ---
EXAMINATION TYPE: US carotid duplex BILAT DATE OF EXAM: 07/25/2022 COMPARISON: NONE CLINICAL HISTORY: Transient altered mental status, rule out TIA. AMS TECHNIQUE: Carotid duplex ultrasound examination. Indirect Doppler criteria was utilized. FINDINGS: EXAM MEASUREMENTS: RIGHT: Peak Systolic Velocity (PSV) cm/sec ----- Right CCA: 48.3 ----- Right ICA: 109 ----- Right ECA: 45.7 ICA/CCA ratio: 2.26 RIGHT: End Diastole cm/sec ----- Right CCA: 10.3 ----- Right ICA: 32.1 ----- Right ECA: 0.0 LEFT: Peak Systolic Velocity (PSV) cm/sec ----- Left CCA: 48.3 ----- Left ICA: 155 ----- Left ECA: 56.0 ICA/CCA ratio: 3.21 LEFT: End Diastole cm/sec ----- Left CCA: 10.3 ----- Left ICA: 45.0 ----- Left ECA: 0.0 VERTEBRALS (direction of flow): Right Vertebral: unable to visualize Left Vertebral: Antegrade Rhythm: Normal TENNIS COACH NOTES: Mild plaque bilateral bifurcations. Tortuous right ICA and left ICA. Generally dim inished velocities. Increased velocities mid left ICA IMPRESSION: 1. Atheromatous plaquing. There is moderate narrowing between 50 and 69% based on velocities of the l eft internal carotid artery. 2. Nonvisualization of the right vertebral artery Criteria for Assigning % of Stenosis / Diameter reduction (Estimation based on the indirect measurements of the internal carotid artery velocities (ICA PSV). 1. Normal (no stenosis)=ICA PSV < 125 cm/s: ratio < 2.0: ICA EDV<40 cm/s. 2. Less than 50% stenosis=ICA PSV < 125 cm/s: ratio < 2.0: ICA EDV<40 cm/s. 3. 50 to 69% stenosis=ICA PSV of 125 to 230 cm/s: ration 2.0 ? 4.0: ICA EDV 40-100 cm/s. 4. Greater than 70% stenosis to near occlusion= ICA PSV > 230 cm/s: ratio > 4.0: ICA EDV > 100 cm/s. 5. Near occlusion= ICA PSV velocities may be low or undetectable: variable ratio and ICA EDV. 6. Total occlusion=unable to detect flow.
[2022-07-25] MEDS ORDERED: ASPIRIN 81 MG PO STA (15:00)
--- NOTE | 2022-07-25 15:32 | P.DS ---
Providers Date of admission: 07/23/22 19:44 Expected date of discharge: 07/25/22 Attending physician: Jovani Pelaez Consults: 07/23/22 23:15 Consult Physician Routine Consulting Provider: Carmen Manning Consult Reason/Comments: Altered mental status Do you want consulting provider notified?: Yes 07/23/22 23:22 Consult Physician Routine Consulting Provider: Louie Pino Consult Reason/Comments: Abnormal EKG Do you want consulting provider notified?: Yes Primary care physician: [facility] Course: Chief Complaint: Altered mentation his is a very pleasant 77-year-old patient of Dr. Zbigniew Gary. Chronic stable medical conditions include GERD, hyperlipidemia, hypertension, osteoarthritis, paroxysmal atrial fibrillation, varicose veins, diverticulosis. very hard of hearing and does lipreading. watchman procedure done by Dr. Concepcion at [facility] on 05/2020.. Patient is Dr. was present to give medical history to the ER physician. The daughter was called by another family member for altered mental status. Patient was not making sense. She was trying to find a hearing aids even though they were in the hand and patient was extremely argumentative even though she is not at baseline. Patient denies any change of vision. No fever no chills. No weakness on a particular site. Patient did feel that she was confused today. 07/24/2022: Patient doing better today. Back to her baseline she thinks. No more episodes of forgetfulness. MRI brain unremarkable. EEG results are pending. Echocardiogram results pending. Seen by cardiology. Follow up with Dr. Jorje Mckee in the office. 07/25/2022: EEG showing some element of encephalopathy. Negative for seizure. Discussed with the patient and the daughter the bedside. Also discussed with Dr. Wellington at length. Baby aspirin being added. Some risk of GI bleed versus stroke. If aspirin not taken. Patient will follow-up with Dr. Mota from vascular outpatient. Patient at baseline. Per daughter patient has some forgetfulness. Discussion and discharge planning more than 35 minutes Past medical history to include: Asthma, GERD, hyperlipidemia, hypertension, osteoarthritis, paroxysmal atrial fibrillation, varicose veins, stomach ulcer, diverticulitis. Esophagitis, gastritis, internal/external hemorrhoids, watchman procedure, esophagitis, internal hemorrhoids Social history: Does not smoke or drink Cold. Lives alone. Physical examination: VITAL SIGNS: 97.6, 56, 16, 114/67 94% room air GENERAL: , comfortable EYES: Pupils equal. Conjunctiva pale. HEENT: External appearance of nose and ears normal, oral cavity grossly normal. Very hard of hearing NECK: JVD not raised; masses not palpable. HEART: First and second heart sounds are normal; no edema. LUNGS: Respiratory rate normal, decreased breaths sounds. ABDOMEN: Soft, nontender, liver spleen not palpable, no masses palpable. PSYCH: Alert and oriented x3; mood and affect normal. MUSCULAR skeletal:: Evidence of OA especially in the hands INVESTIGATIONS, reviewed in the clinical context: EEG: No seizure activity. 2-D echocardiogram: EF 55-60%. Carotid Doppler: Atheromatous plaquing between 50-69% on the left ICA. Nonvisualization of the right vertebral artery Ultrasound KUB: Corticomedullary differentiation maintained. Unremarkable MRI brain with and without contrast: Some chronic changes July 24: Potassium 3.5 BUN 17 creatinine 0.87 White count 8.2 hemoglobin 14.1 platelets 194 potassium 3.8 BUN 24 creatinine 1.12 potassium 10.3 EKG tracing personally reviewed by me-normal sinus rhythm. T-wave changes. Chest x-ray film personally reviewed by me-unremarkable Computed tomography scan brain: Nonspecific white matter changes. UA: Protein 1+ negative nitrite Assessment and plan: -Probable TIA. Baby aspirin. Pravachol -Atheromatous plaquing between 50-69% on the left ICA. Nonvisualization of the right vertebral artery Baby aspirin. Follow-up with Dr. Mota outpatient -Internal hemorrhoids. - moderate persistent asthma, continue with Symbicort -Chronic kidney disease, stage 2, likely nephrosclerosis Renal ultrasound unremarkable -GERD, on PPI -Hyperlipidemia, on Pravachol -Mild cognitive impairment -Essential hypertension, on verapamil ER, Univasc, nadolol -Primary osteoarthritis, use Tylenol when necessary -Paroxysmal atrial fibrillation currently in sinus rhythm -Chronic Esophagitis and gastritis., On PPI -Very hard of hearing Hearing aids -Abnormal EKG. 2-D echo. Unremarkable. Follow-up outpatient with Dr. Jorje Mckee Disposition: Home Plan - Discharge Summary Discharge Rx Participant: No New Discharge Prescriptions: New Folic Acid 1 mg PO DAILY #30 tab Cyanocobalamin [Vitamin B-12] 50 mcg PO DAILY #30 tab Aspirin 81 mg PO DAILY #30 tab Pyridoxine [Vitamin B-6] 50 mg PO DAILY #30 tab Continue Pravastatin Sodium [Pravachol] 40 mg PO DAILY Baclofen [Lioresal] 10 mg PO TID PRN PRN Reason: Muscle Spasm Moexipril [Univasc] 7.5 mg PO DAILY nadoloL [Nadolol] 40 mg PO DAILY Latanoprost [Xalatan 0.005%] 1 drop BOTH EYES HS Budesonide/Formoterol Fumarate [Symbicort 160-4.5 Mcg Inhaler] 1 puff INHALATION RT-BID Albuterol Nebulized [Ventolin Nebulized] 2.5 mg INHALATION RT-TID Omeprazole 20 mg PO DAILY cycloSPORINE 0.05% OPHTH SOLN [Restasis] 1 drop BOTH EYES BID Magnesium Oxide [Magox 400] 400 mg PO DAILY 30 Days #30 tablet Potassium Chloride ER [K-Dur 20] 20 meq PO DAILY Verapamil HCl [Verapamil ER] 240 mg PO BID HYDROcodone/APAP 10-325MG [[place] 10-325] 1 tab PO QID Discontinued Furosemide [Lasix] 20 mg PO DAILY 30 Days #30 tab Discharge Medication List Baclofen [Lioresal] 10 mg PO TID PRN 07/20/15 [History] Moexipril [Univasc] 7.5 mg PO DAILY 07/20/15 [History] Pravastatin Sodium [Pravachol] 40 mg PO DAILY 07/20/15 [History] Latanoprost [Xalatan 0.005%] 1 drop BOTH EYES HS 10/15/16 [History] nadoloL [Nadolol] 40 mg PO DAILY 10/15/16 [History] Albuterol Nebulized [Ventolin Nebulized] 2.5 mg INHALATION RT-TID 08/11/17 [History] Budesonide/Formoterol Fumarate [Symbicort 160-4.5 Mcg Inhaler] 1 puff INHALATION RT-BID 08/11/17 [History] Omeprazole 20 mg PO DAILY 06/25/20 [History] Verapamil HCl [Verapamil ER] 240 mg PO BID 08/07/20 [History] cycloSPORINE 0.05% OPHTH SOLN [Restasis] 1 drop BOTH EYES BID 08/07/20 [History] Magnesium Oxide [Magox 400] 400 mg PO DAILY 30 Days #30 tablet 08/09/20 [Rx] HYDROcodone/APAP 10-325MG [[place] 10-325] 1 tab PO QID 11/12/20 [History] Potassium Chloride ER [K-Dur 20] 20 meq PO DAILY 07/23/22 [History] Aspirin 81 mg PO DAILY #30 tab 07/25/22 [Rx] Cyanocobalamin [Vitamin B-12] 50 mcg PO DAILY #30 tab 07/25/22 [Rx] Folic Acid 1 mg PO DAILY #30 tab 07/25/22 [Rx] Pyridoxine [Vitamin B-6] 50 mg PO DAILY #30 tab 07/25/22 [Rx] Follow up Appointment(s)/Referral(s): Zbigniew Gary DO [Primary Care Provider] - 1-2 days Nathan Mota DO [STAFF PHYSICIAN] - 1 Week Activity/Diet/Wound Care/Special Instructions: dc if ok with neurology
[2022-07-25 16:39] LABS: LDL Cholesterol,Calculated 62.5 mg/dL (0.0-131.0)
== END 2022-07-25 15:27 | disposition home or self-care (01) ==
LOC: EC 14:44 → INTOOBSV 19:44 → 4SSUR 19:44 → UNDODISIN 07-25 15:27
PROVIDERS: ADMIT Hospitalist; ATTEND Hospitalist
DX: G93.40 Encephalopathy, unspecified (principal); J44.9 Chronic obstructive pulmonary disease, unspecified; K21.9 Gastro-esophageal reflux disease without esophagitis; E78.5 Hyperlipidemia, unspecified; I70.0 Atherosclerosis of aorta; H91.8X9 Other specified hearing loss, unspecified ear; I67.2 Cerebral atherosclerosis; M47.819 Spondylosis without myelopathy or radiculopathy, site unspecified; I48.0 Paroxysmal atrial fibrillation; I83.90 Asymptomatic varicose veins of unspecified lower extremity; K57.90 Diverticulosis of intestine, part unspecified, without perforation or abscess without bleeding; I13.10 Hypertensive heart and chronic kidney disease without heart failure, with stage 1 through stage 4 chronic kidney disease, or unspecified chronic kidney disease; N18.30 Chronic kidney disease, stage 3 unspecified; K64.8 Other hemorrhoids; K20.80 Other esophagitis without bleeding; K29.50 Unspecified chronic gastritis without bleeding; M19.042 Primary osteoarthritis, left hand; M19.041 Primary osteoarthritis, right hand; D75.89 Other specified diseases of blood and blood-forming organs; I08.1 Rheumatic disorders of both mitral and tricuspid valves; I37.1 Nonrheumatic pulmonary valve insufficiency; I31.39 Other pericardial effusion (noninflammatory); Z98.51 Tubal ligation status; Z90.710 Acquired absence of both cervix and uterus; Z98.42 Cataract extraction status, left eye; Z79.899 Other long term (current) drug therapy; Z98.41 Cataract extraction status, right eye; Z77.22 Contact with and (suspected) exposure to environmental tobacco smoke (acute) (chronic); Z82.5 Family history of asthma and other chronic lower respiratory diseases; Z82.61 Family history of arthritis; Z86.711 Personal history of pulmonary embolism; Z85.118 Personal history of other malignant neoplasm of bronchus and lung; Z60.2 Problems related to living alone
CPT/HCPCS: 96360; 96361 ×2; 99285; 36415; 94640 ×4; 94760; 95816; 93005 ×2; 93306; 80061; 80053; 80048; 84484; 85025; 85610; 85730; 81001; 83036; 71046; 76770; 93880; 70450; 70553; G0378 ×3; A9585

== ENCOUNTER → 2022-08-03 | Outpatient (CLI) | payer MEDICARE, OTHER ==
[2022-08-03 15:51] LABS: ALT 20 U/L (8-44); AST 28 U/L (13-35); Chol/HDL Ratio 2.95 Ratio; LDL Cholesterol,Calculated 76.3 mg/dL (0.0-131.0)
== END | disposition home or self-care (01) ==
LOC: LABWHC1 09:57
PROVIDERS: ATTEND Internal Medicine Cardiovascular Disease
DX: E78.2 Mixed hyperlipidemia (principal)
CPT/HCPCS: 36415; 80061; 84450; 84460

== ENCOUNTER 2022-11-22 12:07 | Observation (INO) | payer MEDICARE, OTHER ==
[2022-11-22 13:22] LABS: Basophils % (A) 0 %; Eosinophils # (A) 0.3 k/uL (0-0.7); Eosinophils % (A) 4 %; HCT 45.6 % (34.0-46.0); HGB 15.7 gm/dL (11.4-16.0); Lymphocytes # (A) 1.5 k/uL (1.0-4.8); Lymphocytes % (A) 20 %; MCH 34.5 pg (25.0-35.0); MCHC 34.3 g/dL (31.0-37.0); MCV 100.6 fL (80.0-100.0); Mean Platelet Volume 9.2; Monocytes # (A) 0.7 k/uL (0-1.0); Monocytes % (A) 9 %; Neutrophils # (A) 4.9 k/uL (1.3-7.7); Neutrophils % (A) 64 %; Platelet Count 168 k/uL (150-450); RBC 4.53 m/uL (3.80-5.40); RDW 12.7 % (11.5-15.5); WBC 7.8 k/uL (3.8-10.6)
[2022-11-22 13:37] LABS: ALT 16 U/L (4-34); African American GFR (CKD) 67 (>60 ml/min/1.73 sqM); Albumin 4.2 g/dL (3.5-5.0); Anion Gap 5 mmol/L; Blood Urea Nitrogen 19 mg/dL (7-17); Calcium 10.5 mg/dL (8.4-10.2); Carbon Dioxide 36 mmol/L (22-30); Chloride 97 mmol/L (98-107); Glucose 125 mg/dL (74-99); INR 0.9 (<1.2); Non-African American GFR(CKD) 58 (>60 ml/min/1.73 sqM); Partial Thromboplastin Time 23.9 sec (22.0-30.0); Sodium 138 mmol/L (137-145); Total Bilirubin 1.2 mg/dL (0.2-1.3); Total Protein 7.3 g/dL (6.3-8.2)
--- NOTE | 2022-11-22 13:37 | ED ---
Altered Mental Status HPI - General Source: patient, family Mode of arrival: wheelchair <Cory Cruz - Last Filed: 11/22/22 13:37> <Yue Lozano - Last Filed: 11/22/22 18:58> - General Chief Complaint: Altered Mental Status Stated Complaint: mini stroke,memory loss - History of Present Illness Initial Comments: 77-year-old female presenting to the ED with a chief complaint of altered mental status. Last known well 5 PM yesterday. Family states called her daughter at approximately 10 AM today and sounded confused on the phone. States that she is having difficulty with her memory and is more confused than usual. Quicknote performed, verbally signed Cory Cruz PA-C (Cory Cruz) Daughter reports that the patient is brought to the ER today for an episode of altered mental status. Patient seemed to be in her usual state of health when she was spoken to yesterday evening around supper time. This morning around 10 AM daughter called her and the patient was very agitated and yelling stating that she can get or TV remote or her phone to work. Patient seemed quite agitated and confused. Daughter went over there didn't notice any facial droop or slurred speech however when the patient arrived hospital and walk to the restroom on her walk back she did note that she seemed to be dragging her right foot. Daughter reports that she brought her mom's Hospital for an episode similar to this in July and was told she likely had a TIA. She does note that her mom has occasional short-term memory loss but has no formal diagnosis of dementia. The patient does currently live independently but arrangements can be made with the family for the patient to move in with them so she is no longer alone. (Yue Lozano) - Related Data Home Medications Medication Instructions Recorded Confirmed Baclofen [Lioresal] 10 mg PO TID PRN 07/20/15 11/22/22 Moexipril [Univasc] 7.5 mg PO DAILY 07/20/15 11/22/22 Pravastatin Sodium [Pravachol] 40 mg PO DAILY 07/20/15 11/22/22 Latanoprost [Xalatan 0.005%] 1 drop BOTH EYES HS 10/15/16 11/22/22 nadoloL [Nadolol] 40 mg PO DAILY 10/15/16 11/22/22 Albuterol Nebulized [Ventolin 2.5 mg INHALATION RT-TID 08/11/17 11/22/22 Nebulized] Budesonide/Formoterol Fumarate 1 puff INHALATION RT-BID 08/11/17 11/22/22 [Symbicort 160-4.5 Mcg Inhaler] Omeprazole 20 mg PO DAILY 06/25/20 11/22/22 Verapamil HCl [Verapamil ER] 240 mg PO BID 08/07/20 11/22/22 cycloSPORINE 0.05% OPHTH SOLN 1 drop BOTH EYES BID 08/07/20 11/22/22 [Restasis] Potassium Chloride ER [K-Dur 20] 20 meq PO DAILY 07/23/22 11/22/22 Albuterol Inhaler [Ventolin Hfa 1 - 2 puff INHALATION RT-Q6H PRN 11/22/22 11/22/22 Inhaler] Furosemide [Lasix] 20 mg PO DAILY 11/22/22 11/22/22 HYDROcodone/APAP 7.5-325MG [[place] 1 tab PO QID 11/22/22 11/22/22 7.5-325] Umeclidinium [place] [Incruse 62.5 mcg INHALATION RT-DAILY 11/22/22 11/22/22 Ellipta] Previous Rx's Medication Instructions Recorded Magnesium Oxide [Magox 400] 400 mg PO DAILY 30 Days #30 tablet 08/09/20 Allergies Allergy/AdvReac Type Severity Reaction Status Date / Time No Known Allergies Allergy Verified 11/22/22 15:39 Review of Systems ROS Other: All systems not noted in ROS Statement are negative. <Cory Cruz - Last Filed: 11/22/22 13:37> ROS Other: All systems not noted in ROS Statement are negative. <Yue Lozano - Last Filed: 11/22/22 18:58> ROS Statement: Those systems with pertinent positive or pertinent negative responses have been documented in the HPI. Past Medical History Past Medical History: Atrial Fibrillation, Asthma, COPD, GERD/Reflux, GI Bleed, Hyperlipidemia, Hypertension, Osteoarthritis (OA), Pneumonia, Vascular Disorder Additional Past Medical History / Comment(s): [place], Bronchitis, gastric ulcer, diverticular disease, lower GI bleed/AV malformation with ablation, benign colon polyp, borderline hyperlipidemia, arthritis mostly in back, slight bilateral glaucoma, varicosities. History of Any Multi-Drug Resistant Organisms: None Reported Past Surgical History: Adenoidectomy, Appendectomy, Heart Catheterization, Hysterectomy, Tonsillectomy, Tubal Ligation Additional Past Surgical History / Comment(s): Colonoscopy/benign polypectomy/AV malformation ablation, bilateral cataract removals, watchmen procedure Past Anesthesia/Blood Transfusion Reactions: No Reported Reaction Additional Past Anesthesia/Blood Transfusion Reaction / Comment(s): never recieved blood before. Past Psychological History: No Psychological Hx Reported Smoking Status: Never smoker, Second hand smoke exposure Past Alcohol Use History: None Reported Past Drug Use History: None Reported - Past Family History Father Family Medical History: COPD Additional Family Medical History / Comment(s): EMPHYSEMA Mother Family Medical History: Osteoarthritis (OA) Additional Family Medical History / Comment(s): EMPHYSEMA, BOWEL OBSTRUCTION/COLOSTOMY <Cory Cruz - Last Filed: 11/22/22 13:37> General Exam General appearance: alert Eye exam: Present: normal appearance Extremities exam: Present: normal inspection Back exam: Present: normal inspection Neurological exam: Present: alert, oriented X3 <Cory Cruz - Last Filed: 11/22/22 13:37> <Yue Lozano - Last Filed: 11/22/22 18:58> - General Exam Comments Initial Comments: Physical Exam GENERAL: Patient is well-developed and well-nourished Patient is nontoxic and well-hydrated and is in no distress HENT: Normocephalic, Atraumatic EYES: PERRL, EOMI PULMONARY: Unlabored respirations. CARDIOVASCULAR: RRR Warm and well perfused extremities ABDOMEN: Non-distended SKIN: No rashes or bruising : Deferred NEUROLOGIC: Hard of hearing Alert and oriented Normal speech MUSCULOSKELETAL: Moving all extremities with no apparent injury PSYCHIATRIC: Pleasant (Yue Lozano) Course Vital Signs 11/22/22 12:12 Temperature 98.8 F Pulse Rate 83 Respiratory 18 Rate Blood Pressure 157/97 O2 Sat by Pulse 94 L Oximetry Medical Decision Making - Lab Data Result diagrams: 11/22/22 13:07 <Cory Cruz - Last Filed: 11/22/22 13:37> - Lab Data Result diagrams: 11/22/22 13:07 11/22/22 13:07 <Yue Lozano P - Last Filed: 11/22/22 18:58> - Medical Decision Making Patient was seen and evaluated, orders and equipment were performed. I further evaluated the patient she was awake alert oriented to person place and time however she would confused to events of the past 12 hours. NIH were 0. Lab workup was relatively unremarkable. Possible patient TIA versus having sundowning due to undiagnosed dementia. Recommend admission for evaluation by neurology. Patient was agreeable as well as daughter. Patient care was discussed with Dr. pérez accepts admission. Was pt. sent in by a medical professional or institution (, PA, BILL RECAPITULATION CLERK, urgent care, hospital, or custodial...) When possible be specific @ -No Did you speak to anyone other than the patient for history (EMS, parent, family, police, friend...)? What history was obtained from this source @ -Daughter bedside Did you review nursing and triage notes (agree or disagree)? Why? @ -I reviewed and agree with nursing and triage notes Were old charts reviewed (outside hosp., previous admission, EMS record, old EKG, old radiological studies, urgent care reports/EKG's, custodial records)? Report findings @ -Previous admission notes reviewed Differential Diagnosis (chest pain, altered mental status, abdominal pain women, abdominal pain men, vaginal bleeding, weakness, fever, dyspnea, syncope, headache, dizziness, GI bleed, back pain, seizure, CVA, palpatations, mental health, musculoskeletal)? @ -Differential Altered Mental Status: Hypoglycemia, DKA, hypercapnia, ETOH, overdose, CO poisoning, trauma, myxedema coma, HTN encephalopathy, infection, encephalitis, psychosis, intercranial hemorrhage, hepatic encephalopathy, meningitis, CVA, this is not meant to be an all-inclusive list EKG interpreted by me (3pts min.). @ -EKG obtained as part of the stroke workup, EKG obtained at 12:30, rate is 83 rhythm is sinus with PVC noted no acute ST elevations or depressions no evidence of ischemia or infarction or arrhythmia. X-rays interpreted by me (1pt min.). @ -None done CT interpreted by me (1pt min.). @ -No obvious mass or intraparenchymal bleeding - pending formal read by radiologist U/S interpreted by me (1pt. min.). @ -None done What testing was considered but not performed or refused? (CT, X-rays, U/S, labs)? Why? @ -MRI for stroke or Can be completed inpatient What meds were considered but not given or refused? Why? @ -None Did you discuss the management of the patient with other professionals (rebecca watkins i.e. , PA, BILL RECAPITULATION CLERK, lab, RT, psych nurse, social media project manager, tube coremaker, teacher, housing management officer, medical case worker)? Give summary @ -Admitting physician Dr. Pelaez Was smoking cessation discussed for >3mins.? @ -No Was critical care preformed (if so, how long)? @ -No Were there social determinants of health that impacted care today? How? (Homelessness, low income, unemployed, alcoholism, drug addiction, transportation, low edu. Level, literacy, decrease access to med. care, penitentiary, rehab)? @ -No Was there de-escalation of care discussed even if they declined (Discuss DNR or withdrawal of care, Hospice)? DNR status @ -No What co-morbidities impacted this encounter? (DM, HTN, Smoking, COPD, CAD, Cancer, CVA, ARF, Chemo, Hep., AIDS, mental health diagnosis, sleep apnea, morbid obesity)? @ -None Was patient admitted / discharged? Hospital course, mention meds given and rou te, prescriptions, significant lab abnormalities, going to OR and other pertinent info. @ -Admit Undiagnosed new problem with uncertain prognosis? @ -No Drug Therapy requiring intensive monitoring for toxicity (Heparin, Nitro, Insulin, Cardizem)? @ -No Were any procedures done? @ -No Diagnosis/symptom? @ -Altered mental status Acute, or Chronic, or Acute on Chronic? @ -default Uncomplicated (without systemic symptoms) or Complicated (systemic symptoms)? @ -Uncomplicated Side effects of treatment? @ -No Exacerbation, Progression, or Severe Exacerbation? @ -No Poses a threat to life or bodily function? How? (Chest pain, [place], [place], pneumonia, PE, COPD, DKA, ARF, appy, cholecystitis, CVA, Diverticulitis, Homicidal, Suicidal, threat to staff... and all critical care pts) @ -No (Yue Lozano) - Lab Data Lab Results 11/22/22 11/22/22 11/22/22 Range/Units 13:07 13:07 13:07 WBC 7.8 (3.8-10.6) k/uL RBC 4.53 (3.80-5.40) m/uL Hgb 15.7 (11.4-16.0) gm/dL Hct 45.6 (34.0-46.0) % MCV 100.6 H (80.0-100.0) fL MCH 34.5 (25.0-35.0) pg MCHC 34.3 (31.0-37.0) g/dL RDW 12.7 (11.5-15.5) % Plt Count 168 (150-450) k/uL MPV 9.2 Neutrophils % 64 % Lymphocytes % 20 % Monocytes % 9 % Eosinophils % 4 % Basophils % 0 % Neutrophils # 4.9 (1.3-7.7) k/uL Lymphocytes # 1.5 (1.0-4.8) k/uL Monocytes # 0.7 (0-1.0) k/uL Eosinophils # 0.3 (0-0.7) k/uL Basophils # 0.0 (0-0.2) k/uL PT 10.0 (9.0-12.0) sec INR 0.9 (<1.2) APTT 23.9 (22.0-30.0) sec Sodium 138 (137-145) mmol/L Potassium 4.5 (3.5-5.1) mmol/L Chloride 97 L (98-107) mmol/L Carbon Dioxide 36 H (22-30) mmol/L Anion Gap 5 mmol/L BUN 19 H (7-17) mg/dL Creatinine 0.95 (0.52-1.04) mg/dL Est GFR (CKD-EPI)AfAm 67 (>60 ml/min/1.73 sqM) Est GFR (CKD-EPI)NonAf 58 (>60 ml/min/1.73 sqM) Glucose 125 H (74-99) mg/dL Calcium 10.5 H (8.4-10.2) mg/dL Total Bilirubin 1.2 (0.2-1.3) mg/dL AST 31 (14-36) U/L ALT 16 (4-34) U/L Alkaline Phosphatase 105 (38-126) U/L Troponin I (0.000-0.034) ng/mL Total Protein 7.3 (6.3-8.2) g/dL Albumin 4.2 (3.5-5.0) g/dL Urine Color Urine Appearance (Clear) Urine pH (5.0-8.0) Ur Specific [place] (1.001-1.035) Urine Protein (Negative) Urine Glucose (UA) (Negative) Urine Ketones (Negative) Urine Blood (Negative) Urine Nitrite (Negative) Urine Bilirubin (Negative) Urine Urobilinogen (<2.0) mg/dL Ur Leukocyte Esterase (Negative) Urine RBC (0-5) /hpf Urine WBC (0-5) /hpf Ur Squamous Epith Cells (0-4) /hpf Urine Bacteria (None) /hpf Urine Mucus (None) /hpf 11/22/22 11/22/22 Range/Units 13:07 13:10 WBC (3.8-10.6) k/uL RBC (3.80-5.40) m/uL Hgb (11.4-16.0) gm/dL Hct (34.0-46.0) % MCV (80.0-100.0) fL MCH (25.0-35.0) pg MCHC (31.0-37.0) g/dL RDW (11.5-15.5) % Plt Count (150-450) k/uL MPV Neutrophils % % Lymphocytes % % Monocytes % % Eosinophils % % Basophils % % Neutrophils # (1.3-7.7) k/uL Lymphocytes # (1.0-4.8) k/uL Monocytes # (0-1.0) k/uL Eosinophils # (0-0.7) k/uL Basophils # (0-0.2) k/uL PT (9.0-12.0) sec INR (<1.2) APTT (22.0-30.0) sec Sodium (137-145) mmol/L Potassium (3.5-5.1) mmol/L Chloride (98-107) mmol/L Carbon Dioxide (22-30) mmol/L Anion Gap mmol/L BUN (7-17) mg/dL Creatinine (0.52-1.04) mg/dL Est GFR (CKD-EPI)AfAm (>60 ml/min/1.73 sqM) Est GFR (CKD-EPI)NonAf (>60 ml/min/1.73 sqM) Glucose (74-99) mg/dL Calcium (8.4-10.2) mg/dL Total Bilirubin (0.2-1.3) mg/dL AST (14-36) U/L ALT (4-34) U/L Alkaline Phosphatase (38-126) U/L Troponin I 0.019 (0.000-0.034) ng/mL Total Protein (6.3-8.2) g/dL Albumin (3.5-5.0) g/dL Urine Color Light Yellow Urine Appearance Clear (Clear) Urine pH 7.0 (5.0-8.0) Ur Specific [place] 1.008 (1.001-1.035) Urine Protein Negative (Negative) Urine Glucose (UA) Negative (Negative) Urine Ketones Negative (Negative) Urine Blood Negative (Negative) Urine Nitrite Negative (Negative) Urine Bilirubin Negative (Negative) Urine Urobilinogen <2.0 (<2.0) mg/dL Ur Leukocyte Esterase Small H (Negative) Urine RBC 2 (0-5) /hpf Urine WBC 3 (0-5) /hpf Ur Squamous Epith Cells 1 (0-4) /hpf Urine Bacteria Rare H (None) /hpf Urine Mucus Rare H (None) /hpf Disposition <Cory Cruz - Last Filed: 11/22/22 13:37> Is patient prescribed a controlled substance at d/c from ED?: No <Yue Lozano - Last Filed: 11/22/22 18:58> Clinical Impression: Altered mental state Disposition: ADMITTED IP TO THIS HOSP Condition: Stable Referrals: Zbigniew Gary DO [Primary Care Provider] - 1-2 days
[2022-11-22 13:45] LABS: AST 31 U/L (14-36); Alkaline Phosphatase 105 U/L (38-126); Potassium 4.5 mmol/L (3.5-5.1)
--- NOTE | 2022-11-22 14:35 | CT ---
EXAMINATION TYPE: CT brain wo con CT DLP: 1100.4 mGycm, Automated exposure control for dose reduction was used. DATE OF EXAM: 11/22/2022 2:28 PM COMPARISON: 07/23/2022. CLINICAL INDICATION:Female, 77 years old with history of slurred speech, Confusion, AMS TECHNIQUE: Brain: Axial CT images of the brain were obtained with coronal and sagittal reformats created and rev iewed. Contrast used: None. Oral contrast used: None. FINDINGS: Brain: Extra-axial spaces: No abnormal extra-axial fluid collections. Ventricular system: Within normal limits Cerebral parenchyma: Cerebral atrophy. No acute intraparenchymal hemorrhage or mass effect. The [place] -white junction is well differentiated. Scattered hypoattenuating areas are seen within the white mat ter. Cerebellum: Unremarkable. Mass effect: No evidence of midline shift. Intracranial vasculature: Atherosclerotic calcifications of the intracranial vessels. Soft tissues: Normal. Calvarium/osseous structures: No depressed skull fracture. Paranasal sinuses and mastoid air cells: Mild scattered paranasal sinus disease. Visualized orbits: Bilateral aphakia IMPRESSION: 1. No acute intracranial process. 2. Nonspecific white matter changes, likely secondary to chronic small vessel ischemic disease.
[2022-11-22 17:07] LABS: Appearance,Urine Clear (Clear); Bacteria,Urine Rare /hpf; Bilirubin,Urine Negative (Negative); Blood,Urine Negative (Negative); Color,Urine Light Yellow; Glucose,Urine (UA) Negative (Negative); Ketones,Urine Negative (Negative); Leukocyte Esterase,Urine Small (Negative); Mucus,Urine Rare /hpf; Nitrite,Urine Negative (Negative); Protein,Urine Negative (Negative); RBC,Urine 2 /hpf (0-5); Specific Gravity,Urine 1.008 (1.001-1.035); Squamous Epithelial Cell,Urine 1 /hpf (0-4); Urobilinogen,Urine <2.0 mg/dL (<2.0); WBC,Urine 3 /hpf (0-5)
[2022-11-22] MEDS ORDERED: HYDROcodone/APAP 7.5-325MG 1 EACH TAB PO ONE (18:04)
[2022-11-23] MEDS ORDERED: ALBUTEROL NEBULIZED 2.5 MG/3 ML INHALATION STA ×2 (04:20→09:20)
[2022-11-23 09:16] LABS: Chol/HDL Ratio 3.46 Ratio; LDL Cholesterol,Calculated 97.9 mg/dL (0.0-131.0)
[2022-11-23] MEDS ORDERED: ALBUTEROL NEBULIZED 2.5 MG/3 ML INHALATION PRN (09:32)
[2022-11-23] MEDS ORDERED: BACLOFEN 10 MG TAB PO PRN (10:40)
[2022-11-23] MEDS: ASPIRIN 81 MG PO SCH (11:32)
[2022-11-23] MEDS: PANTOPRAZOLE 40 MG TABLET PO SCH (11:32)
[2022-11-23] MEDS: VERAPAMIL SR 240 MG TABLET.ER PO SCH ×3 (11:32→21:59)
[2022-11-23] MEDS: cycloSPORINE 0.05% OPHTH 0.4 ML DROPERETTE BOTH EYES SCH ×2 (11:33→20:15)
[2022-11-23] MEDS: lisinopriL 10 MG TAB PO SCH (11:35)
[2022-11-23] MEDS: IPRATROPIUM 0.5 MG/2.5 ML NEBU INHALATION SCH ×2 (11:35→20:16)
--- NOTE | 2022-11-23 11:50 | US ---
EXAMINATION TYPE: US carotid duplex BILAT DATE OF EXAM: 11/23/2022 COMPARISON: Carotid ultrasound 07/25/2022 CLINICAL INDICATION: Female, 77 years old with history of stroke; h/o tia, AMS TECHNIQUE: Carotid duplex ultrasound examination. Indirect Doppler criteria was utilized. FINDINGS: EXAM MEASUREMENTS: RIGHT: Peak Systolic Velocity (PSV) cm/sec ----- Right CCA: 53.7 ----- Right ICA: 50.5 ----- Right ECA: 71.8 ICA/CCA ratio: 0.9 RIGHT: End Diastole cm/sec ----- Right CCA: 5.5 ----- Right ICA: 9.2 ----- Right ECA: 4.4 LEFT: Peak Systolic Velocity (PSV) cm/sec ----- Left CCA: 56.6 ----- Left ICA: 91.0 ----- Left ECA: 85.3 ICA/CCA ratio: 1.6 LEFT: End Diastole cm/sec ----- Left CCA: 6.1 ----- Left ICA: 18.0 ----- Left ECA: 5.1 VERTEBRALS (direction of flow): Right Vertebral: Antegrade Left Vertebral: Antegrade Rhythm: Normal DRYING CAN WORKER NOTES: Mild homogeneous plaque with no stenosis seen IMPRESSION: Mild atherosclerotic plaque in the bilateral carotid bulbs. No ultrasound evidence for hemodynamicall y significant stenosis in the both carotid arterial systems on today's exam. Criteria for Assigning % of Stenosis / Diameter reduction (Estimation based on the indirect measurements of the internal carotid artery velocities (ICA PSV). 1. Normal (no stenosis)=ICA PSV < 125 cm/s: ratio < 2.0: ICA EDV<40 cm/s. 2. Less than 50% stenosis=ICA PSV < 125 cm/s: ratio < 2.0: ICA EDV<40 cm/s. 3. 50 to 69% stenosis=ICA PSV of 125 to 230 cm/s: ration 2.0 ? 4.0: ICA EDV 40-100 cm/s. 4. Greater than 70% stenosis to near occlusion= ICA PSV > 230 cm/s: ratio > 4.0: ICA EDV > 100 cm/s. 5. Near occlusion= ICA PSV velocities may be low or undetectable: variable ratio and ICA EDV. 6. Total occlusion=unable to detect flow.
[2022-11-23] MEDS: SYMBICORT 160-4.5 MCG INHALER INHALATION SCH ×2 (12:15→20:17)
--- NOTE | 2022-11-23 12:20 | P.CNNES ---
History of Present Illness Consult date: 11/23/22 Requesting physician: Yue Lozano Reason for Consult: tia vs dementia History of Present Illness: This is a 77-year-old woman who presented emergency department on 11/22/2022 because of confusion. Some of the history is obtained from medical record. She notified me that she's been confused the and had a couple of confusion episode and that her daughter is concerned that when she is in the hospital. She state d that she is having some short-term memory but she stated she is almost 79 but did acknowledge that sometimes the [place] the food is a having short-term memory issues in the last couple months. She resides by herself but she stated that her daughter is concerned about that and she wants her to move with her. She denies of any new weakness, numbness, visual disturbance, headache, nausea vomiting. Per the ED note seems the patient has called her daughter around 10 AM yesterday and sounded confused over the phone. It seems the patient is having difficulty with her memory and is more confused than usual. Seems the patient was a very agitated yelling and she can get the TV remote or her phone to work per the ED note. She does not have any focal deficits but the upon present in the ED she was dragging her right foot. She's been having short-term memory but has no formal diagnosis of dementia. She lives at independent. Upon reviewing the patient medical record patient was seen by Dr. Manning in the beginning of July 2022 and the patient was altered with agitation and irritability without loss of memory or any focal deficit and he stated that it's unclear etiology about possible transient global amnesia versus TIA. She had left ICA stenosis of moderate degree. Mild B12 folate and B6 borderline level. She has atrial fibrillation status post watchman device and that M May 2020 with a history of GI bleed. An EEG was done and it shows mild encephalopathy otherwise no epileptiform was seen. MRI the brain was negative. She was started on the aspirin 81 mg daily and to follow up with us was an outpatient. Please refer to Dr. Manning's note for further details. Some other workup during this hospital visit consisted of: Patient is afebrile so far. MCV of 100.6. Lipid panel is triglyceride 143, cholesterol is 178, LDL is 97 and HDL 51 Glucose 125. Calcium is 10.5. CT head is reported as no acute intracranial process. Review of Systems Review of system is limited with apparent positive and negative as per HPI. Past Medical History Past Medical History: Atrial Fibrillation, Asthma, COPD, GERD/Reflux, GI Bleed, Hyperlipidemia, Hypertension, Osteoarthritis (OA), Pneumonia, Vascular Disorder Additional Past Medical History / Comment(s): [place] [employer], Bronchitis, gastric ulcer, diverticular disease, lower GI bleed/AV malformation with ablation, benign colon polyp, borderline hyperlipidemia, arthritis mostly in back, slight bilateral glaucoma, varicosities. History of Any Multi-Drug Resistant Organisms: None Reported Past Surgical History: Adenoidectomy, Appendectomy, Heart Catheterization, Hysterectomy, Tonsillectomy, Tubal Ligation Additional Past Surgical History / Comment(s): Colonoscopy/benign polypectomy/AV malformation ablation, bilateral cataract removals, watchmen procedure Past Anesthesia/Blood Transfusion Reactions: No Reported Reaction Additional Past Anesthesia/Blood Transfusion Reaction / Comment(s): never recieved blood before. Past Psychological History: No Psychological Hx Reported Smoking Status: Never smoker, Second hand smoke exposure Past Alcohol Use History: None Reported Past Drug Use History: None Reported - Past Family History Father Family Medical History: COPD Additional Family Medical History / Comment(s): EMPHYSEMA Mother Family Medical History: Osteoarthritis (OA) Additional Family Medical History / Comment(s): EMPHYSEMA, BOWEL OBSTRUCTION/COLOSTOMY Medications and Allergies Home Medications Medication Instructions Recorded Confirmed Type Baclofen [Lioresal] 10 mg PO TID PRN 07/20/15 11/22/22 History Moexipril [Univasc] 7.5 mg PO DAILY 07/20/15 11/22/22 History Pravastatin Sodium [Pravachol] 40 mg PO DAILY 07/20/15 11/22/22 History Latanoprost [Xalatan 0.005%] 1 drop BOTH EYES HS 10/15/16 11/22/22 History nadoloL [Nadolol] 40 mg PO DAILY 10/15/16 11/22/22 History Albuterol Nebulized [Ventolin 2.5 mg INHALATION RT-TID 08/11/17 11/22/22 History Nebulized] Budesonide/Formoterol Fumarate 1 puff INHALATION RT-BID 08/11/17 11/22/22 History [Symbicort 160-4.5 Mcg Inhaler] Omeprazole 20 mg PO DAILY 06/25/20 11/22/22 History Verapamil HCl [Verapamil ER] 240 mg PO BID 08/07/20 11/22/22 History cycloSPORINE 0.05% OPHTH SOLN 1 drop BOTH EYES BID 08/07/20 11/22/22 History [Restasis] Magnesium Oxide [Magox 400] 400 mg PO DAILY 30 Days #30 tablet 08/09/20 11/22/22 Rx Potassium Chloride ER [K-Dur 20] 20 meq PO DAILY 07/23/22 11/22/22 History Albuterol Inhaler [Ventolin Hfa 1 - 2 puff INHALATION RT-Q6H PRN 11/22/22 11/22/22 History Inhaler] Furosemide [Lasix] 20 mg PO DAILY 11/22/22 11/22/22 History HYDROcodone/APAP 7.5-325MG [[place] 1 tab PO QID 11/22/22 11/22/22 History 7.5-325] Umeclidinium [place] [Incruse 62.5 mcg INHALATION RT-DAILY 11/22/22 11/22/22 History Ellipta] Allergies Allergy/AdvReac Type Severity Reaction Status Date / Time No Known Allergies Allergy Verified 11/22/22 15:39 Physical Examination - Vital Signs Vital Signs: Vital Signs Temp Pulse Resp BP Pulse Ox 11/23/22 09:36 76 11/23/22 09:29 80 11/23/22 09:05 81 16 147/86 91 L 11/23/22 06:15 71 20 119/66 92 L 11/23/22 05:15 136/61 92 L 11/23/22 04:47 91 L 11/23/22 04:45 183/95 86 L 11/23/22 04:30 183/95 97 11/23/22 04:15 183/95 92 L 11/23/22 03:24 59 L 11/23/22 03:00 72 20 109/63 94 L 11/23/22 02:00 78 17 106/63 96 11/23/22 00:59 58 L 14 114/68 95 11/23/22 00:45 91/56 93 L 11/23/22 00:30 91/56 93 L 11/22/22 23:53 61 15 114/68 94 L 11/22/22 23:40 95 11/22/22 23:11 87 18 132/75 94 L 11/22/22 21:05 18 132/75 11/22/22 21:00 67 18 132/75 90 L 11/22/22 12:12 98.8 F 83 18 157/97 94 L GENERAL: The patient is lying in bed and is not in acute distress. NEUROLOGICAL: Higher mental function: The patient is awake, alert, oriented to self, place and time. Patient is able to name objects (pen, watch, glasses). Patient is following simple commands. No aphasia and no neglect. Cranial nerves: The pupils are round, equal and reactive to light and accommodation. Visual jackson are full to confrontation throughout. Extraocular movement is intact no nystagmus is noted. Facial sensation is normal to touch throughout. The facial strength is mild left nasolabial flattening and has ptosis on left eye (patient could not tell me if this is new or old). Hearing is moderately decreased bilaterally to hand rub. Tongue is midline and moved [id number] without any difficulty. No dysarthria is noted. Shoulder shrug is normal bilaterally. Motor: The strength is 5 over 5 throughout. Normal tone and bulk. Cerebellum: Normal finger to nose heel to wright bilaterally. Sensation: Sensation is normal to touch throughout. Reflexes (right/left): 2+ throughout. Plantars are downgoing bilaterally. Results - Laboratory Findings CBC and BMP: 11/22/22 13:07 11/22/22 13:07 Abnormal Lab Findings: Abnormal Labs 11/22/22 11/22/22 11/22/22 13:07 13:07 13:10 MCV 100.6 H Chloride 97 L Carbon Dioxide 36 H BUN 19 H Glucose 125 H Calcium 10.5 H Ur Leukocyte Esterase Small H Urine Bacteria Rare H Urine Mucus Rare H Assessment and Plan Assessment: This is a 77-year-old woman who presented because of confusion, agitated, yelling that her phone and TV remote is not working and had a similar episode in July 2022 in which she was very agitated irritable and had stroke workup which was negative and at that time was felt the unclear but possible TIA versus transient global amnesia. On my current examination has ptosis of left eye and left nasolabial flattening. I feel the patient repeated episode of confusion, agitation, irritable possible due to underlying developing dementia. Reported right foot drag while in the ED but on my examination had left nasolabial flattening with ptosis of left eye: Rule out acute ischemic stroke. History of left ICA stenosis of moderate degree and in the past was about 5069 and was to follow up with the vascular surgery team as an outpatient Macrocytosis and that she had mild B12, folate and the borderline B6 History of GI bleed Issue of atrial fibrillation status post watchman device at [place] in 05/27/2020 Hypertension Hyperlipidemia Plan: I ordered a repeat EEG to rule out any underlying seizure discharges Ordered MRI the brain especially with this right foot weakness while in ED to rule out stroke. Ordered a carotid duplex, lipid panel, limited 2-D echo Ordered repeat TSH, vitamin B-12, folate, ammonia level Resumed aspirin 81 mg that was agreed the to be on in July 2022. Start on Lipitor 20 mg daily at bedtime. I'll start the patient on Aricept 5 mg daily at bedtime and can consider going up in 2-4 weeks to 10 mg daily at bedtime if she tolerates it. Recommend a detailed neuropsych evaluation for her memory as an outpatient and to follow-up with neurologist as outpatient. Continue neuro checks Cardiac monitoring PT OT and [facility] are consulted I restarted vitamin B12, folate, vitamin B6 as the recommended per Dr. Manning in July 2022. Again we'll get the levels rechecked. Defer the rest of the medical management to primary team For DVT prophylaxis I started the patient on subcu heparin 5000 units every 12 hours The plan is discussed with her nurse. Thank you for the consultation. Time with Patient: Greater than 30
[2022-11-23] MEDS ORDERED: ALBUTEROL NEBULIZED 2.5 MG/3 ML INHALATION SCH (13:00)
[2022-11-23] MEDS: IPRATROPIUM-ALBUTEROL 3 ML NEB INHALATION SCH ×2 (13:06→20:17)
[2022-11-23] MEDS: HYDROcodone/APAP 7.5-325MG 1 EACH TAB PO SCH ×2 (13:33→18:30)
--- NOTE | 2022-11-23 17:28 | EEG ---
ELECTROENCEPHALOGRAM REPORT CLINICAL HISTORY: This is a 77-year-old woman with altered mental status. The video EEG is obtained to evaluate for seizure and epileptiform activity. RELEVANT MEDICATIONS: 1. Verapamil. 2. Baclofen. EEG TYPE: A routine 21-channel EEG is performed using the 10/20 electrode placement system. DESCRIPTION: Wakefulness is only obtained. During the awake state, the background consists of 9 Hz activity. There is no physiological sleep architecture seen. There is no focal slowing. There is moderate amount of diffuse myogenic artifact. INTERICTAL AND ICTAL: None. ACTIVATION PROCEDURE: Photic stimulation and hyperventilation are not performed. CLINICAL INTERPRETATION: This is a normal routine EEG. There is no focal slowing, epileptiform discharge, or seizure on the EEG. A normal routine EEG does not rule out underlying seizures. Clinical correlation is recommended. MMODL / IJN: [id number] /
--- NOTE | 2022-11-23 17:49 | P.HPIM ---
History of Present Illness H&P Date: 11/23/22 Chief Complaint: Increasing confusion very pleasant 77-year-old patient of Dr. Zbigniew Gary. Chronic stable medical conditions include GERD, hyperlipidemia, hypertension, osteoarthritis, paroxysmal atrial fibrillation, varicose veins, diverticulosis. very hard of hearing and does lipreading. watchman procedure done by Dr. Concepcion at [facility] on 05/2020.. Patient was here in July 2022. With altered mental status. That does patient's MRI/EEG/neurological work was unremarkable. Carotid Doppler showed 50-69% on the left ICA. Nonvisualization of the right vertebral artery. Patient was placed on aspirin and was to follow-up with Dr. Mota from [facility]. Patient presented to the ER. As per the ER notes: 77-year-old female presenting to the ED with a chief complaint of altered mental status. Last known well 5 PM yesterday. Family states called her daughter at approximately 10 AM today and sounded confused on the phone. States that she is having difficulty with her memory and is more confused than usual. Quicknote performed, verbally signed Cory Cruz PA-C (Cory Cruz) Daughter reports that the patient is brought to the ER today for an episode of altered mental status. Patient seemed to be in her usual state of health when she was spoken to yesterday evening around supper time. This morning around 10 AM daughter called her and the patient was very agitated and yelling stating that she can get or TV remote or her phone to work. Patient seemed quite agitated and confused. Daughter went over there didn't notice any facial droop or slurred speech however when the patient arrived hospital and walk to the restroom on her walk back she did note that she seemed to be dragging her right foot. Daughter reports that she brought her mom's Hospital for an episode similar to this in July and was told she likely had a TIA. She does note that her mom has occasional short-term memory loss but has no formal diagnosis of dementia. The patient does currently live independently but arrangements can be made with the family for the patient to move in with them so she is no longer alone. (Yue Lozano) This morning. Patient feels back to baseline. He will to hold a regular conversation. Was forgetful about what transpired prior to admission. No focal weakness. Review of systems: GEN.: Tired EYES: None HEENT: Hard of hearing NECK: None RESPIRATORY: None CARDIOVASCULAR: None GASTROINTESTINAL: None GENITOURINARY: None MUSCULOSKELETAL: Joint pains LYMPHATICS: None HEMATOLOGICAL: None PSYCHIATRY: None NEUROLOGICAL: As above Past medical history to include: Asthma, GERD, hyperlipidemia, hypertension, osteoarthritis, paroxysmal atrial fibrillation, varicose veins, stomach ulcer, diverticulitis. Esophagitis, gastritis, internal/external hemorrhoids, watchman procedure, esophagitis, internal hemorrhoids. Right carotid 50-69% stenosis Social history: Does not smoke or drink Cold. Lives alone. Physical examination: VITAL SIGNS: 88.8, 83, 18, 132.75, 94% room air upon presentation GENERAL: Sitting up in bed, awake, comfortable EYES: Pupils equal. Conjunctiva pale. HEENT: External appearance of nose and ears normal, oral cavity grossly normal. Very hard of hearing NECK: JVD not raised; masses not palpable. HEART: First and second heart sounds are normal; no edema. LUNGS: Respiratory rate normal, decreased breaths sounds. ABDOMEN: Soft, nontender, liver spleen not palpable, no masses palpable. PSYCH: Able to hold on to a regular conversation. Slight forgetfulness. MUSCULAR skeletal:: Evidence of OA especially in the hands NEUROLOGICAL: Cranial nerves grossly intact; no facial asymmetry, power and sensation grossly intact. LYMPHATICS: No lymph nodes palpable in the axilla and neck INVESTIGATIONS, reviewed in the clinical context: EKG tracing personally reviewed by me-normal sinus rhythm WBC 7.8 hemoglobin 15.7 platelets 168 potassium 4.5 BUN 19 creatinine 0[address] brain: Chronic changes Previous investigations from July 2022: EEG: No seizure activity. 2-D echocardiogram: EF 55-60%. Carotid Doppler: Atheromatous plaquing between 50-69% on the left ICA. Nonvisualization of the right vertebral artery Ultrasound KUB: Corticomedullary differentiation maintained. Unremarkable MRI brain with and without contrast: Some chronic changes Assessment and plan: -Probable transient global amnesia. Risk factors same as TIA. Patient has a chronic intensive workup in July of this year. aspirin. Pravachol. Neurology consulted. -Atheromatous plaquing between 50-69% on the left ICA. Nonvisualization of the right vertebral artery Baby aspirin. Follow-up with Dr. Mota outpatient -Internal hemorrhoids. - moderate persistent asthma, continue with Symbicort -Chronic kidney disease, stage 2, likely nephrosclerosis -GERD, on PPI -Hyperlipidemia, on Pravachol -Mild cognitive impairment -Essential hypertension, on verapamil ER, Univasc, nadolol -Primary osteoarthritis, use Tylenol when necessary -Paroxysmal atrial fibrillation currently in sinus rhythm -Chronic Esophagitis and gastritis., On PPI -Very hard of hearing Hearing aids Discussed with patient. Neurology consulted. Speech consulted to carry out the dementia evaluation with slums examination. Past Medical History Past Medical History: Atrial Fibrillation, Asthma, COPD, GERD/Reflux, GI Bleed, Hyperlipidemia, Hypertension, Osteoarthritis (OA), Pneumonia, Vascular Disorder Additional Past Medical History / Comment(s): [place], Bronchitis, gastric ulcer, diverticular disease, lower GI bleed/AV malformation with ablation, benign colon polyp, borderline hyperlipidemia, arthritis mostly in back, slight bilateral glaucoma, varicosities. History of Any Multi-Drug Resistant Organisms: None Reported Past Surgical History: Adenoidectomy, Appendectomy, Heart Catheterization, Hysterectomy, Tonsillectomy, Tubal Ligation Additional Past Surgical History / Comment(s): Colonoscopy/benign polypectomy/AV malformation ablation, bilateral cataract removals, watchmen procedure Past Anesthesia/Blood Transfusion Reactions: No Reported Reaction Additional Past Anesthesia/Blood Transfusion Reaction / Comment(s): never recieved blood before. Past Psychological History: No Psychological Hx Reported Smoking Status: Never smoker, Second hand smoke exposure Past Alcohol Use History: None Reported Past Drug Use History: None Reported - Past Family History Father Family Medical History: COPD Additional Family Medical History / Comment(s): EMPHYSEMA Mother Family Medical History: Osteoarthritis (OA) Additional Family Medical History / Comment(s): EMPHYSEMA, BOWEL OBSTRUCTION/COLOSTOMY Medications and Allergies Home Medications Medication Instructions Recorded Confirmed Type Baclofen [Lioresal] 10 mg PO TID PRN 07/20/15 11/22/22 History Moexipril [Univasc] 7.5 mg PO DAILY 07/20/15 11/22/22 History Pravastatin Sodium [Pravachol] 40 mg PO DAILY 07/20/15 11/22/22 History Latanoprost [Xalatan 0.005%] 1 drop BOTH EYES HS 10/15/16 11/22/22 History nadoloL [Nadolol] 40 mg PO DAILY 10/15/16 11/22/22 History Albuterol Nebulized [Ventolin 2.5 mg INHALATION RT-TID 08/11/17 11/22/22 History Nebulized] Budesonide/Formoterol Fumarate 1 puff INHALATION RT-BID 08/11/17 11/22/22 History [Symbicort 160-4.5 Mcg Inhaler] Omeprazole 20 mg PO DAILY 06/25/20 11/22/22 History Verapamil HCl [Verapamil ER] 240 mg PO BID 08/07/20 11/22/22 History cycloSPORINE 0.05% OPHTH SOLN 1 drop BOTH EYES BID 08/07/20 11/22/22 History [Restasis] Magnesium Oxide [Magox 400] 400 mg PO DAILY 30 Days #30 tablet 08/09/20 11/22/22 Rx Potassium Chloride ER [K-Dur 20] 20 meq PO DAILY 07/23/22 11/22/22 History Albuterol Inhaler [Ventolin Hfa 1 - 2 puff INHALATION RT-Q6H PRN 11/22/22 11/22/22 History Inhaler] Furosemide [Lasix] 20 mg PO DAILY 11/22/22 11/22/22 History HYDROcodone/APAP 7.5-325MG [[place] 1 tab PO QID 11/22/22 11/22/22 History 7.5-325] Umeclidinium [place] [Incruse 62.5 mcg INHALATION RT-DAILY 11/22/22 11/22/22 History Ellipta] Allergies Allergy/AdvReac Type Severity Reaction Status Date / Time No Known Allergies Allergy Verified 11/22/22 15:39 Physical Exam Vitals: Vital Signs Temp Pulse Resp BP Pulse Ox 11/23/22 09:36 76 11/23/22 09:29 80 11/23/22 09:05 81 16 147/86 91 L 11/23/22 06:15 71 20 119/66 92 L 11/23/22 05:15 136/61 92 L 11/23/22 04:47 91 L 11/23/22 04:45 183/95 86 L 11/23/22 04:30 183/95 97 11/23/22 04:15 183/95 92 L 11/23/22 03:24 59 L 11/23/22 03:00 72 20 109/63 94 L 11/23/22 02:00 78 17 106/63 96 11/23/22 00:59 58 L 14 114/68 95 11/23/22 00:45 91/56 93 L 11/23/22 00:30 91/56 93 L 11/22/22 23:53 61 15 114/68 94 L 11/22/22 23:40 95 11/22/22 23:11 87 18 132/75 94 L 11/22/22 21:05 18 132/75 11/22/22 21:00 67 18 132/75 90 L 11/22/22 12:12 98.8 F 83 18 157/97 94 L Results CBC & Chem 7: 11/22/22 13:07 11/22/22 13:07 Labs: Abnormal Lab Results - Last 24 Hours (Table) 11/22/22 11/22/22 11/22/22 Range/Units 13:07 13:07 13:10 MCV 100.6 H (80.0-100.0) fL Chloride 97 L (98-107) mmol/L Carbon Dioxide 36 H (22-30) mmol/L BUN 19 H (7-17) mg/dL Glucose 125 H (74-99) mg/dL Calcium 10.5 H (8.4-10.2) mg/dL Ur Leukocyte Esterase Small H (Negative) Urine Bacteria Rare H (None) /hpf Urine Mucus Rare H (None) /hpf
[2022-11-23 19:23] LABS: Chol/HDL Ratio 3.77 Ratio; LDL Cholesterol,Calculated 96.4 mg/dL (0.0-131.0)
[2022-11-23] MEDS: LATANOPROST 0.005% OPHTH DROPS 2.5 ML BTL BOTH EYES SCH (20:14)
[2022-11-23] MEDS: DONEPEZIL 5 MG TAB PO SCH (20:15)
[2022-11-23] MEDS: HEPARIN SODIUM,PORCINE 5,000 UNIT/ML 1 ML VIAL SQ SCH (20:15)
[2022-11-23] MEDS: ATORVASTATIN 20 MG TAB PO SCH (20:15)
[2022-11-24] MEDS: HYDROcodone/APAP 7.5-325MG 1 EACH TAB PO SCH ×5 (04:01→21:51)
[2022-11-24] MEDS: PANTOPRAZOLE 40 MG TABLET PO SCH (06:04)
[2022-11-24] MEDS: ASPIRIN 81 MG PO SCH (08:12)
[2022-11-24] MEDS: cycloSPORINE 0.05% OPHTH 0.4 ML DROPERETTE BOTH EYES SCH ×2 (08:12→20:22)
[2022-11-24] MEDS: FOLIC ACID 1 MG TAB PO SCH (08:12)
[2022-11-24] MEDS: CYANOCOBALAMIN 500 MCG TAB PO SCH (08:12)
[2022-11-24] MEDS: lisinopriL 10 MG TAB PO SCH (08:12)
[2022-11-24] MEDS: HEPARIN SODIUM,PORCINE 5,000 UNIT/ML 1 ML VIAL SQ SCH ×2 (08:12→20:22)
[2022-11-24] MEDS: PYRIDOXINE 50 MG TAB PO SCH (08:13)
[2022-11-24] MEDS: VERAPAMIL SR 240 MG TABLET.ER PO SCH ×2 (08:15→20:23)
[2022-11-24] MEDS: IPRATROPIUM-ALBUTEROL 3 ML NEB INHALATION SCH ×3 (08:15→21:04)
[2022-11-24] MEDS: SYMBICORT 160-4.5 MCG INHALER INHALATION SCH ×2 (08:16→21:04)
[2022-11-24] MEDS ORDERED: ACETAMINOPHEN TAB 325 MG TAB PO PRN (11:25)
[2022-11-24 11:59] VITALS: BMI 19.3
[2022-11-24 12:36] LABS: African American GFR (CKD) 42 (>60 ml/min/1.73 sqM); Anion Gap 8 mmol/L; Blood Urea Nitrogen 32 mg/dL (7-17); Calcium 10.2 mg/dL (8.4-10.2); Carbon Dioxide 35 mmol/L (22-30); Chloride 93 mmol/L (98-107); Glucose 107 mg/dL (74-99); Non-African American GFR(CKD) 36 (>60 ml/min/1.73 sqM); Potassium 3.9 mmol/L (3.5-5.1); Sodium 136 mmol/L (137-145)
--- NOTE | 2022-11-24 12:36 | P.PN ---
Subjective Progress Note Date: 11/24/22 I am following-up seeing the patient and per nurse is about the same and no new neurological issues. She feels she doing well. Objective - Vital Signs Vital signs: Vital Signs Temp 97.6 F 11/24/22 07:00 Pulse 74 11/24/22 08:27 Resp 16 11/24/22 08:12 BP 107/57 11/24/22 07:00 Pulse Ox 92 L 11/24/22 07:00 FiO2 Intake & Output 11/23/22 11/24/22 11/24/22 18:59 06:59 18:59 Weight 48.081 kg 48.081 kg Other: Voiding Method Toilet Toilet Toilet # Voids 2 - Exam GENERAL: The patient is lying in bed and is not in acute distress. NEUROLOGICAL: Higher mental function: The patient is awake, alert, oriented to self, place and time. Patient is able to name objects (pen, watch, glasses). Patient is following simple commands. No aphasia and no neglect. Cranial nerves: The pupils are round, equal and reactive to light and accommodation. Visual jackson are full to confrontation throughout. Extraocular movement is intact no nystagmus is noted. Facial sensation is normal to touch throughout. The facial strength is mild left nasolabial flattening and has ptosis on left eye (patient could not tell me if this is new or old). Hearing is severely decreased bilaterally to hand rub. Tongue is midline and moved [id number] without any difficulty. No dysarthria is noted. Shoulder shrug is normal bilaterally. Motor: The strength is 5 over 5 throughout. Normal tone and bulk. Cerebellum: Normal finger to nose heel to wright bilaterally. Sensation: Sensation is normal to touch throughout. Reflexes (right/left): 2+ throughout. Plantars are downgoing bilaterally. Some other workup during this hospital visit consisted of: Patient is afebrile so far. MCV of 100.6. Vital B12 is 561 Serum folate is 17.40 TSH is 0.638 Ammonia level is less than 9 Lipid panel is triglyceride 143, cholesterol is 178, LDL is 97 and HDL [address] head is reported as no acute intracranial process. Cardiac duplex was reported as mild of the sclerotic plaque in bilateral carotid Doppler bulk. No ultrasound evidence for hemodynamically significant stenosis in both carotid arterial system on today's exam. Routine EEG is normal. There is no focal slowing, epileptiform discharges or seizure on the EEG. - Labs CBC & Chem 7: 11/22/22 13:07 11/22/22 13:07 Labs: Abnormal Lab Results - Last 24 Hours (Table) 11/23/22 Range/Units 10:25 Triglycerides 168.00 H (0.00-149.00) mg/dL Assessment and Plan Assessment: This is a 77-year-old woman who presented because of confusion, agitated, yelling that her phone and TV remote is not working and had a similar episode in July 2022 in which she was very agitated irritable and had stroke workup which was negative and at that time was felt the unclear but possible TIA versus transient global amnesia. On my current examination has ptosis of left eye and left nasolabial flattening. I feel the patient repeated episode of confusion, agitation, irritable possible due to underlying developing dementia. Reported right foot drag while in the ED but on my examination had left nasolabial flattening with ptosis of left eye: Rule out acute ischemic stroke. History of left ICA stenosis of moderate degree and in the past was about 50-69 and was to follow up with the vascular surgery team as an outpatient Macrocytosis and that she had mild B12, folate and the borderline B6 History of GI bleed Issue of atrial fibrillation status post watchman device at [place] in 05/27/2020 Hypertension Hyperlipidemia Plan: Routine EEG is normal. She had MRI of the brain and pending official report. I personally reviewed it and there is no acute or subacute ischemia and I do not feel there is any enhancement. Pending official lot report. I ordered CTA head and neck to rule out any aneurysm of dissection causing left eye ptosis and left facial droop. Pending limited 2-D echo Resumed aspirin 81 mg that was agreed the to be on in July 2022. Started on Lipitor 20 mg daily at bedtime. Started her on Aricept 5 mg daily at bedtime on 11/23/2022 because of underlying likely dementia and can consider going up in 2-4 weeks to 10 mg daily at bedtime if she tolerates it. Recommend a detailed neuropsych evaluation for her memory as an outpatient and to follow-up with neurologist as outpatient. Continue neuro checks Cardiac monitoring PT OT and RECRUITMENT OFFICER are consulted I restarted vitamin B12, folate, vitamin B6 as the recommended per Dr. Manning in July 2022. Again we'll get the levels rechecked. Defer the rest of the medical management to primary team For DVT prophylaxis I started the patient on subcu heparin 5000 units every 12 hours The plan is discussed with her nurse. Time with Patient: Less than 30
--- NOTE | 2022-11-24 16:33 | XR ---
EXAMINATION TYPE: XR chest 2V DATE OF EXAM: 11/24/2022 COMPARISON: 07/23/2022 INDICATION: Wheezing, COPD TECHNIQUE: Frontal and lateral views of the chest are obtained. FINDINGS: The heart size is normal. The pulmonary vasculature is normal. Tracheobronchial tree as visualized appears normal The lungs are clear. Hyperinflation flattening the diaphragms is present, compatible with COPD. IMPRESSION: 1. No acute pulmonary process. 2. COPD
[2022-11-24] MEDS ORDERED: SODIUM CHLORIDE 0.9% 1,000 ML IV SCH (17:30)
--- NOTE | 2022-11-24 17:31 | P.PN ---
Subjective Progress Note Date: 11/24/22 Very pleasant 77-year-old patient of Dr. Zbigniew Gary. Chronic stable medical conditions include GERD, hyperlipidemia, hypertension, osteoarthritis, paroxysmal atrial fibrillation, varicose veins, diverticulosis. very hard of hearing and does lipreading. watchman procedure done by Dr. Concepcion at [facility] on 05/2020.. Patient was here in July 2022. With altered mental status. That does sharla loya's MRI/EEG/neurological work was unremarkable. Carotid Doppler showed 50- 69% on the left ICA. Nonvisualization of the right vertebral artery. Patient was placed on aspirin and was to follow-up with Dr. Mota from vascular. 11/24/2022 Patient is evaluated today sitting up in bed. She has continued to report cough and shortness of breath and she was wheezy on examination. She is continued on Symbicort twice a day as well as as needed albuterol we will add IV steroids twice a day and also gave patient empiric antibiotics with oral azithromycin for 3 days. She did have a chest x-ray done which was compatible with COPD with no other acute changes evident. She underwent CT angiography recommended by neurology with concern for a left eye left facial droop. This is still pending at this time. Patient remains hypotensive with pressure in the 90s systolic was continued on oral lisinopril and creatinine today is 1.39 patient will be discontinued off lisinopril and will receive some gentle hydration. She is also on oral Lasix which will be held at this time. Review of Systems Constitutional: Denied any fatigue denied any fever. Cardio vascular: denied any chest pain, palpitations Gastrointestinal: denied any nausea, vomiting, diarrhea Pulmonary: Reports shortness of breath and cough Neurologic denied any new focal deficits All inpatient medications were reviewed and appropriate changes in these medications as dictated in the interval history and assessment and plan. PHYSICAL EXAMINATION: GENERAL: The patient is alert and oriented x3, not in any acute distress. Well developed, well nourished. HEENT: Pupils are round and equally reacting to light. EOMI. No scleral icterus. No conjunctival pallor. Normocephalic, atraumatic. No pharyngeal erythema. No thyromegaly. CARDIOVASCULAR: S1 and S2 present. No murmurs, rubs, or gallops. PULMONARY: Faint scattered wheezing throughout and coarse congested cough ABDOMEN: Soft, nontender, nondistended, normoactive bowel sounds. No palpable organomegaly. MUSCULOSKELETAL: No joint swelling or deformity. EXTREMITIES: No cyanosis, clubbing, or pedal edema. NEUROLOGICAL: Gross neurological examination did not reveal any focal deficits. Mild left eye droop SKIN: No rashes. Assessment Transient global amnesia also has left eye ptosis and facial droop rule out TIA Left ICA stenosis 50-69% nonvisualization of the right vertebral artery Moderate persistent asthma maintained on Symbicort with a mild acute exacerbation patient will receive IV steroids History of hypertension currently low normal Chronic kidney disease stage II likely nephrosclerosis Gastroesophageal reflux disease Hyperlipidemia Mild cognitive impairment Chronic esophagitis and gastritis Paroxysmal atrial fibrillation currently in sinus rhythm Osteoarthritis Hard of hearing GI prophylaxis DVT prophylaxis Plan Continue albuterol as needed and Symbicort patient will be given IV steroids and started on oral azithromycin for 3 days of antibiotic therapy Continue supportive care with antitussives Neurology workup in progress rule out acute stroke/TIA patient underwent CT angiography reports are currently pending at this time. Recommend to hold lisinopril and patient will be gently hydrated with a follow- up BMP in the morning to monitor renal function. Possible discharge in the next 24 hours. The impression and plan of care has been dictated by Bruna Whalen Nurse Practitioner as directed. Dr. Amanda MD I have performed a history and physical examination and medical decision making of this patient, discussed the same with the dictator, and agree with the dictators assessment and plan as written, documented as a scribe. Based on total visit time, I have performed more than 50% of this visit. Objective - Vital Signs Vital signs: Vital Signs Temp 97.6 F 11/24/22 07:00 Pulse 74 11/24/22 08:27 Resp 16 11/24/22 08:12 BP 107/57 11/24/22 07:00 Pulse Ox 92 L 11/24/22 07:00 FiO2 Intake & Output 11/23/22 11/24/22 11/24/22 18:59 06:59 18:59 Weight 48.081 kg Other: Voiding Method Toilet Toilet Toilet # Voids 2 - Labs CBC & Chem 7: 11/22/22 13:07 11/24/22 11:57 Labs: Abnormal Lab Results - Last 24 Hours (Table) 11/23/22 Range/Units 10:25 Triglycerides 168.00 H (0.00-149.00) mg/dL Assessment and Plan Time with Patient: Less than 30
[2022-11-24] MEDS: AZITHROMYCIN 500 MG TAB PO SCH (18:24)
[2022-11-24] MEDS: ATORVASTATIN 20 MG TAB PO SCH (20:22)
[2022-11-24] MEDS: DONEPEZIL 5 MG TAB PO SCH (20:22)
[2022-11-24] MEDS: LATANOPROST 0.005% OPHTH DROPS 2.5 ML BTL BOTH EYES SCH (20:23)
[2022-11-24] MEDS: methylPREDNISolone SOD SUCCI 40 MG/ML 1 ML VIAL IV SCH (20:26)
--- NOTE | 2022-11-24 23:39 | CT ---
EXAMINATION TYPE: CT angio head neck DATE OF EXAM: 11/24/2022 HISTORY: left ptosis facial. r/o aneurysm or dissection COMPARISON: None CT DLP: 366.6 mGycm. Automated Exposure Control for Dose Reduction was Utilized. TECHNIQUE: CTA scan of the neck is performed with IV Contrast, patient injected with 65 mL of Isovue 370, axial images are obtained, coronal and sagittal reformatted images are reviewed. Three-D recons tructed images are created on an independent workstation and reviewed. Source images are reviewed. FINDINGS: Carotid/Vascular Structures: There is a three-vessel arch. Common carotid arteries appears symmetrica l. Vertebral arteries are codominant. Bifurcation into internal and external carotid arteries appears normal. Internal carotid arteries and vertebral arteries are patent to the skull base. There is tort uosity of the right internal carotid artery. Cervical of [place]: Vertebral basilar system appears normal. Posterior cerebral vasculature is unrema rkable. Internal carotid arteries bifurcate normally into A1 and M1 segments. A2 segments are normal. The anterior communicating artery is is not clearly identified. Posterior communicating arteries. Th e absent. IMPRESSION: 1. No flow-limiting stenosis bilateral carotid bifurcations. 2. Normal [place] NASCET criteria was used in interpretation of this exam?
[2022-11-25] MEDS: PANTOPRAZOLE 40 MG TABLET PO SCH (06:28)
[2022-11-25] MEDS: CYANOCOBALAMIN 500 MCG TAB PO SCH (07:53)
[2022-11-25] MEDS: FOLIC ACID 1 MG TAB PO SCH (07:53)
[2022-11-25] MEDS: AZITHROMYCIN 500 MG TAB PO SCH (07:53)
[2022-11-25] MEDS: cycloSPORINE 0.05% OPHTH 0.4 ML DROPERETTE BOTH EYES SCH ×2 (07:54→20:22)
[2022-11-25] MEDS: methylPREDNISolone SOD SUCCI 40 MG/ML 1 ML VIAL IV SCH ×2 (07:55→20:22)
[2022-11-25] MEDS: ASPIRIN 81 MG PO SCH (07:55)
[2022-11-25] MEDS: HEPARIN SODIUM,PORCINE 5,000 UNIT/ML 1 ML VIAL SQ SCH ×2 (07:55→20:22)
[2022-11-25] MEDS: PYRIDOXINE 50 MG TAB PO SCH (07:56)
[2022-11-25] MEDS: IPRATROPIUM-ALBUTEROL 3 ML NEB INHALATION SCH ×3 (08:25→20:34)
[2022-11-25] MEDS: SYMBICORT 160-4.5 MCG INHALER INHALATION SCH ×2 (08:25→20:35)
[2022-11-25] MEDS: HYDROcodone/APAP 7.5-325MG 1 EACH TAB PO SCH ×4 (09:00→22:45)
[2022-11-25 09:15] LABS: BUN/Creat Ratio 18.88 Ratio (12.00-20.00); Blood Urea Nitrogen 30.2 mg/dL (9.0-27.0); Calcium 10.2 mg/dL (8.7-10.3); Carbon Dioxide 29.3 mmol/L (21.6-31.8); Chloride 99 mmol/L (96-109); Glucose 143 mg/dL (70-110); Potassium 4.3 mmol/L (3.5-5.5); Sodium 140 mmol/L (135-145)
[2022-11-25] MEDS: VERAPAMIL SR 240 MG TABLET.ER PO SCH (10:02)
--- NOTE | 2022-11-25 12:24 | P.PN ---
Subjective Progress Note Date: 11/25/22 I am following-up seeing the patient and is accompanied with her daughter. Per patient her ptosis of left eye is very old and it for years. She denies of any new neurological issues. Denies of headache and is hoping to going home. Per daughter her left nasolabial flattening is her baseline and not new. Objective - Vital Signs Vital signs: Vital Signs Temp 97.9 F 11/25/22 09:33 Pulse 72 11/25/22 12:08 Resp 15 11/25/22 07:00 BP 97/57 11/25/22 07:00 Pulse Ox 94 L 11/25/22 09:33 FiO2 Intake & Output 11/24/22 11/25/22 11/25/22 18:59 06:59 18:59 Intake Total 120 110 Balance 120 110 Weight 48.081 kg Intake: Oral 120 110 Other: Voiding Method Toilet Toilet Toilet # Bowel Movements 1 0 - Exam GENERAL: The patient is lying in bed and is not in acute distress. NEUROLOGICAL: Higher mental function: The patient is awake, alert, oriented to self, place and time. Patient is able to name objects (pen, watch, glasses). Patient is following simple commands. No aphasia and no neglect. Cranial nerves: The pupils are round, equal and reactive to light and accommodation. Visual jackson are full to confrontation throughout. Extraocular movement is intact no nystagmus is noted. Facial sensation is normal to touch throughout. The facial strength is mild left nasolabial flattening and has ptosis on left eye (patient could not tell me if this is new or old). Hearing is severely decreased bilaterally to hand rub. Tongue is midline and moved [id number] without any difficulty. No dysarthria is noted. Shoulder shrug is normal bilaterally. Motor: The strength is 5 over 5 throughout. Normal tone and bulk. Cerebellum: Normal finger to nose heel to wright bilaterally. Sensation: Sensation is normal to touch throughout. Reflexes (right/left): 2+ throughout. Plantars are downgoing bilaterally. Some other workup during this hospital visit consisted of: Patient is afebrile so far. MCV of 100.6. Vital B12 is 561 Serum folate is 17.40 TSH is 0.638 Ammonia level is less than 9 Lipid panel is triglyceride 143, cholesterol is 178, LDL is 97 and HDL [address] head is reported as no acute intracranial process. Cardiac duplex was reported as mild of the sclerotic plaque in bilateral carotid Doppler bulk. No ultrasound evidence for hemodynamically significant stenosis in both carotid arterial system on today's exam. Routine EEG is normal. There is no focal slowing, epileptiform discharges or seizure on the EEG. CTA head and neck: Reported as no flow-limiting stenosis bilateral carotid bifurcation. Normal [place]. - Labs CBC & Chem 7: 11/22/22 13:07 11/25/22 05:40 Labs: Abnormal Lab Results - Last 24 Hours (Table) 11/24/22 11/25/22 Range/Units 11:57 05:40 Sodium 136 L (137-145) mmol/L Chloride 93 L (98-107) mmol/L Carbon Dioxide 35 H (22-30) mmol/L BUN 32 H 30.2 H (7-17) mg/dL Creatinine 1.39 H 1.6 H (0.52-1.04) mg/dL Est GFR (CKD-EPI) 33 L (>=60) Glucose 107 H 143 H (74-99) mg/dL Assessment and Plan Assessment: This is a 77-year-old woman who presented because of confusion, agitated, yelling that her phone and TV remote is not working and had a similar episode in July 2022 in which she was very agitated irritable and had stroke workup which was negative and at that time was felt the unclear but possible TIA versus transient global amnesia. On my current examination has ptosis of left eye and left nasolabial flattening. I feel the patient repeated episode of confusion, agitation, irritable possible due to underlying developing dementia--currently oriented X3. Reported right foot drag while in the ED. Probable TIA. MRI Brain is pending official report but I feel negative for acute/subacute stroke or mass. Chronic left eye ptosis and denies of any headache. CTA head/neck is negative Chronic left nasolabial flattening (per daughter baseline). History of left ICA stenosis of moderate degree and in the past was about 50-69 and was to follow up with the vascular surgery team as an outpatient Macrocytosis and that she had mild B12, folate and the borderline B6 History of GI bleed Issue of atrial fibrillation status post watchman device at [place] in 05/27/2020 Hypertension Hyperlipidemia Plan: Routine EEG is normal. She had MRI of the brain and pending official report. I personally reviewed it and there is no acute or subacute ischemia and I do not feel there is any enhancement. Pending official lot report. Pending limited 2-D echo Resumed aspirin 81 mg that was agreed the to be on in July 2022. Started on Lipitor 20 mg daily at bedtime. Started her on Aricept 5 mg daily at bedtime on 11/23/2022 because of underlying likely dementia and can consider going up in 2-4 weeks to 10 mg daily at bedtime if she tolerates it. Recommend a detailed neuropsych evaluation for her memory as an outpatient and to follow-up with neurologist as outpatient. Continue neuro checks Cardiac monitoring PT OT and WHARFMASTER are consulted I restarted vitamin B12, folate, vitamin B6 as the recommended per Dr. Manning in July 2022. Repeat vitamin D 12 is 561, folate 17.4. Pending vitamin B6. Defer the rest of the medical management to primary team For DVT prophylaxis I started the patient on subcu heparin 5000 units every 12 hours According to the daughter the patient will be moving with her. The plan is discussed with patient, her daughter who is at bedside and her nurse. Also discussed with primary team N.P. If MRI the brain report is back normal as well as 2-D echo the no further neurological workup. Dr. Manning will start neurology service tomorrow a.m. Time with Patient: Less than 30
--- NOTE | 2022-11-25 14:45 | MR ---
EXAMINATION TYPE: MR brain wo/w con DATE OF EXAM: 11/23/2022 COMPARISON: CT brain 11/22/2022 HISTORY: Confusion with Rt foot Weakness-CVA CONTRAST: Performed utilizing 5ml mL intravenous Gadavist gadolinium contrast. TECHNIQUE: Multiplanar, multiecho imaging on a 3.0 [place] magnet is performed through the brain. Stud y is performed within 24 hours of arrival to the hospital. The craniovertebral junction is normal. The pituitary is normal. Diffusion-weighted imaging is performed. No abnormal hyperintensity is present to suggest an acute i ntracranial infarct or acute ischemic change. There is confluent periventricular white matter hyperintensity, likely on the basis of chronic white matter ischemic changes. Some white matter changes are also present within the brainstem. Subcortical white matter changes are present. Ventricles and sulci are prominent for the patient age. No abnormal enhancement is evident. IMPRESSIONS: 1. No acute intracranial process evident. 2. Atrophy with chronic appearing periventricular white matter ischemic changes. Subcortical and brai nstem white matter changes are also present.
--- NOTE | 2022-11-25 17:15 | P.PN ---
Subjective Progress Note Date: 11/25/22 Very pleasant 77-year-old patient of Dr. Zbigniew Gary. Chronic stable medical conditions include GERD, hyperlipidemia, hypertension, osteoarthritis, paroxysmal atrial fibrillation, varicose veins, diverticulosis. very hard of hearing and does lipreading. watchman procedure done by Dr. Concepcion at [facility] on 05/2020.. Patient was here in July 2022. With altered mental status. That does sharla loya's MRI/EEG/neurological work was unremarkable. Carotid Doppler showed 50- 69% on the left ICA. Nonvisualization of the right vertebral artery. Patient was placed on aspirin and was to follow-up with Dr. Mota from vascular. 11/24/2022 Patient is evaluated today sitting up in bed. She has continued to report cough and shortness of breath and she was wheezy on examination. She is continued on Symbicort twice a day as well as as needed albuterol we will add IV steroids twice a day and also gave patient empiric antibiotics with oral azithromycin for 3 days. She did have a chest x-ray done which was compatible with COPD with no other acute changes evident. She underwent CT angiography recommended by neurology with concern for a left eye left facial droop. This is still pending at this time. Patient remains hypotensive with pressure in the 90s systolic was continued on oral lisinopril and creatinine today is 1.39 patient will be discontinued off lisinopril and will receive some gentle hydration. She is also on oral Lasix which will be held at this time. 11/25/2022 Evaluated today sitting up in bed. No acute events overnight and neurological symptoms have resolved. MRI shows no acute intracranial process evident. There is atrophy with chronic appearing periventricular white matter ischemic changes. Subcortical and brainstem white matter changes are also present. Echocardiogram report pending. She was started on IV solumedrol and oral antibiotics for the cough and sinus congestion. Remains on updrafts. She reports feeling better today and her lungs are clear. Patient did have contrast yesterday and creatinine was up to 1.6 today this is likely contrast-induced nephropathy in addition to the renal injury from hypotension. We will recommend hydrate the patient and repeat labs tomorrow. Blood pressure remains low/normal and she is off verapamil and lisinopril at this time. Review of Systems Constitutional: Denied any fatigue denied any fever. Cardio vascular: denied any chest pain, palpitations Gastrointestinal: denied any nausea, vomiting, diarrhea Pulmonary: Reports shortness of breath and cough Neurologic denied any new focal deficits All inpatient medications were reviewed and appropriate changes in these medications as dictated in the interval history and assessment and plan. PHYSICAL EXAMINATION: GENERAL: The patient is alert and oriented x3, not in any acute distress. Well developed, well nourished. HEENT: Pupils are round and equally reacting to light. EOMI. No scleral icterus. No conjunctival pallor. Normocephalic, atraumatic. No pharyngeal erythema. No thyromegaly. CARDIOVASCULAR: S1 and S2 present. No murmurs, rubs, or gallops. PULMONARY: Lungs are clear no wheezing or crackles noted. ABDOMEN: Soft, nontender, nondistended, normoactive bowel sounds. No palpable organomegaly. MUSCULOSKELETAL: No joint swelling or deformity. EXTREMITIES: No cyanosis, clubbing, or pedal edema. NEUROLOGICAL: Gross neurological examination did not reveal any focal deficits. Mild left eye droop SKIN: No rashes. Assessment Transient global amnesia also has left eye ptosis and facial droop rule out TIA Left ICA stenosis 50-69% nonvisualization of the right vertebral artery Moderate persistent asthma maintained on Symbicort with a mild acute exacerbation patient will receive IV steroids History of hypertension currently low normal Chronic kidney disease stage II likely nephrosclerosis Gastroesophageal reflux disease Hyperlipidemia Mild cognitive impairment Chronic esophagitis and gastritis Paroxysmal atrial fibrillation currently in sinus rhythm Osteoarthritis Hard of hearing GI prophylaxis DVT prophylaxis Plan Continue albuterol as needed and Symbicort patient will be given IV steroids and started on oral azithromycin for 3 days of antibiotic therapy. Transition to oral steroids in the AM. Continue supportive care with antitussives Neurology workup in progress rule out acute stroke/TIA pending echocardiogram to complete the work up Recommend to hold lisinopril/verapamil and patient will be gently hydrated with a follow-up BMP in the morning to monitor renal function. Possible discharge in the next 24 hours. The impression and plan of care has been dictated by Bruna Whalen, Nurse Practitioner as directed. Dr. Amanda MD I have performed a history and physical examination and medical decision making of this patient, discussed the same with the dictator, and agree with the dictators assessment and plan as written, documented as a scribe. Based on total visit time, I have performed more than 50% of this visit. Objective - Vital Signs Vital signs: Vital Signs Temp 99.3 F 11/25/22 14:04 Pulse 82 11/25/22 14:04 Resp 24 11/25/22 14:04 BP 109/67 11/25/22 14:04 Pulse Ox 94 L 11/25/22 14:04 FiO2 Intake & Output 11/24/22 11/25/22 11/25/22 18:59 06:59 18:59 Intake Total 120 230 Balance 120 230 Weight 48.081 kg Intake: Oral 120 230 Other: Voiding Method Toilet Toilet Toilet # Bowel Movements 1 0 - Labs CBC & Chem 7: 11/22/22 13:07 11/25/22 05:40 Labs: Abnormal Lab Results - Last 24 Hours (Table) 11/25/22 Range/Units 05:40 BUN 30.2 H (9.0-27.0) mg/dL Creatinine 1.6 H (0.6-1.5) mg/dL Est GFR (CKD-EPI) 33 L (>=60) Glucose 143 H (70-110) mg/dL Assessment and Plan Time with Patient: Less than 30
[2022-11-25] MEDS: SODIUM CHLORIDE 0.9% 1,000 ML IV SCH (17:29)
[2022-11-25] MEDS: ATORVASTATIN 20 MG TAB PO SCH (20:22)
[2022-11-25] MEDS: DONEPEZIL 5 MG TAB PO SCH (20:22)
[2022-11-25] MEDS: LATANOPROST 0.005% OPHTH DROPS 2.5 ML BTL BOTH EYES SCH (20:23)
[2022-11-25] MEDS: BENZONATATE 100 MG CAP PO PRN (20:25)
[2022-11-26] MEDS: SODIUM CHLORIDE 0.9% 1,000 ML IV SCH (01:17)
[2022-11-26] MEDS: PANTOPRAZOLE 40 MG TABLET PO SCH (06:30)
[2022-11-26 07:44] VITALS: BP 136/69; RESP 16; TEMP 97.3
--- NOTE | 2022-11-26 08:08 | CA ---
Transthoracic Echo Report Name: Nancy Naqvi Age: 77 Gender: F : 1945 Exam Date: 11/25/2022 11:34 Exam Location: [place] [facility] Ht (in): 62 Wt (lb): 106 Ordering Physician: Kevin Piper MD Attending/Referring Phys: Retail Area Manager Deborah Simons RDCS Procedure CPT: Indications: limited. stroke Cardiac Hx: Technical Quality: Fair Contrast 1: Agitated Saline Total Dose (mL): 9 Contrast 2: Total Dose (mL): MEASUREMENTS (Male / Female) Normal Values 2D ECHO LV Diastolic Diameter PLAX 4.3 cm 4.2 - 5.9 / 3.9 - 5.3 cm LV Systolic Diameter PLAX 2.6 cm IVS Diastolic Thickness 1.2 cm 0.6 - 1.0 / 0.6 - 0.9 cm LVPW Diastolic Thickness 1.2 cm 0.6 - 1.0 / 0.6 - 0.9 cm LV Relative Wall Thickness 0.5 FINDINGS Left Ventricle Limited study. Mildly increased left ventricular wall thickness. Left ventricular cavity size normal. Normal left ventricular systolic function with no obvious regional wall motion abnormalities. Left ventricular ejection fraction is estimated at 55-60 %. Right Ventricle Right Atrium No right atrial thrombus or mass seen. Negative agitated saline bubble study for right to left shunt. Left Atrium No left atrial thrombus or mass present. Mitral Valve Aortic Valve Tricuspid Valve Pulmonic Valve Pericardium Minimal pericardial effusion (normal variant). Aorta CONCLUSIONS This is a technically suboptimal and limited echocardiogram that shows normal LV function And the bubble study was negative for [id number] shunt Previewed by: Dr. Tyler Mckee MD (Electronically Signed) Final Date: 26 November 2022 08:07
[2022-11-26] MEDS: ASPIRIN 81 MG PO SCH (08:57)
[2022-11-26] MEDS: HEPARIN SODIUM,PORCINE 5,000 UNIT/ML 1 ML VIAL SQ SCH (08:57)
[2022-11-26] MEDS: CYANOCOBALAMIN 500 MCG TAB PO SCH (08:57)
[2022-11-26] MEDS: HYDROcodone/APAP 7.5-325MG 1 EACH TAB PO SCH (08:58)
[2022-11-26] MEDS: FOLIC ACID 1 MG TAB PO SCH (08:58)
[2022-11-26] MEDS: cycloSPORINE 0.05% OPHTH 0.4 ML DROPERETTE BOTH EYES SCH (08:58)
[2022-11-26] MEDS: AZITHROMYCIN 500 MG TAB PO SCH (08:58)
[2022-11-26] MEDS: PYRIDOXINE 50 MG TAB PO SCH (08:59)
[2022-11-26] MEDS ORDERED: predniSONE 20 MG TAB PO SCH (09:00)
[2022-11-26] MEDS: BENZONATATE 100 MG CAP PO PRN (09:18)
[2022-11-26] MEDS: SYMBICORT 160-4.5 MCG INHALER INHALATION SCH (09:34)
[2022-11-26] MEDS: IPRATROPIUM-ALBUTEROL 3 ML NEB INHALATION SCH (09:34)
[2022-11-26 09:37] VITALS: PULSE 76
[2022-11-26 11:01] LABS: Basophils # (A) 0.02 X 10*3/uL (0.00-0.10); Basophils % (A) 0.1 %; Eosinophils # (A) 0 X 10*3/uL (0.04-0.35); Eosinophils % (A) 0 %; HCT 39.2 % (37.2-46.3); HGB 13.3 d/dL (12.0-15.0); Lymphocytes # (A) 1.44 X 10*3/uL (0.90-5.00); Lymphocytes % (A) 8.8 %; MCH 34.2 pg (27.0-32.0); MCHC 33.9 d/dL (32.0-37.0); MCV 100.8 FL (80.0-97.0); Mean Platelet Volume 12.1 FL (9.5-12.2); Monocytes # (A) 0.43 X 10*3/uL (0.20-1.00); Monocytes % (A) 2.6 %; NRBC Per 100 WBC 0 X 10*3/uL (0.00-0.01); Neutrophils # (A) 14.33 X 10*3/uL (1.80-7.70); Neutrophils % (A) 88.1 %; Platelet Count 204 X 10*3/uL (140-440); RBC 3.89 X 10*6/uL (4.10-5.20); WBC 16.29 X 10*3/uL (4.50-10.00)
[2022-11-26 11:19] LABS: BUN/Creat Ratio 23.27 Ratio (12.00-20.00); Blood Urea Nitrogen 25.6 mg/dL (9.0-27.0); Calcium 9.5 mg/dL (8.7-10.3); Carbon Dioxide 27.8 mmol/L (21.6-31.8); Chloride 104 mmol/L (96-109); Glucose 139 mg/dL (70-110); Potassium 3.8 mmol/L (3.5-5.5); Sodium 140 mmol/L (135-145)
--- NOTE | 2022-11-26 22:37 | P.DS ---
Providers Date of admission: 11/24/22 17:36 Expected date of discharge: 11/26/22 Attending physician: Jovani Pelaez Consults: 11/22/22 18:59 Consult Physician Routine Consulting Provider: Kevin Piper Consult Reason/Comments: tia vs new dementia Do you want consulting provider notified?: Yes Primary care physician: [facility] Course: Chief Complaint: Increasing confusion very pleasant 77-year-old patient of Dr. Zbigniew Gary. Chronic stable medical conditions include GERD, hyperlipidemia, hypertension, osteoarthritis, paroxysmal atrial fibrillation, varicose veins, diverticulosis. very hard of hearing and does lipreading. watchman procedure done by Dr. Concepcion at [facility] on 05/2020.. Patient was here in July 2022. With altered mental status. That does patient's MRI/EEG/neurological work was unremarkable. Carotid Doppler showed 50-69% on the left ICA. Nonvisualization of the right vertebral artery. Patient was placed on aspirin and was to follow-up with Dr. Mota from vascular. Patient presented to the ER. As per the ER notes: 77-year-old female presenting to the ED with a chief complaint of altered mental status. Last known well 5 PM yesterday. Family states called her daughter at approximately 10 AM today and sounded confused on the phone. States that she is having difficulty with her memory and is more confused than usual. Quicknote performed, verbally signed Cory Cruz PA-C (Cory Cruz) Daughter reports that the patient is brought to the ER today for an episode of altered mental status. Patient seemed to be in her usual state of health when she was spoken to yesterday evening around supper time. This morning around 10 AM daughter called her and the patient was very agitated and yelling stating that she can get or TV remote or her phone to work. Patient seemed quite agitated and confused. Daughter went over there didn't notice any facial droop or slurred speech however when the patient arrived hospital and walk to the restroom on her walk back she did note that she seemed to be dragging her right foot. Daughter reports that she brought her mom's Hospital for an episode similar to this in July and was told she likely had a TIA. She does note that her mom has occasional short-term memory loss but has no formal diagnosis of dementia. The patient does currently live independently but arrangements can be made with the family for the patient to move in with them so she is no longer alone. (Yue Lozano) This morning. Patient feels back to baseline. He will to hold a regular conversation. Was forgetful about what transpired prior to admission. No focal weakness. 11/24/2022 Patient is evaluated today sitting up in bed. She has continued to report cough and shortness of breath and she was wheezy on examination. She is continued on Symbicort twice a day as well as as needed albuterol we will add IV steroids twice a day and also gave patient empiric antibiotics with oral azithromycin for 3 days. She did have a chest x-ray done which was compatible with COPD with no other acute changes evident. She underwent CT angiography recommended by neurology with concern for a left eye left facial droop. This is still pending at this time. Patient remains hypotensive with pressure in the 90s systolic was continued on oral lisinopril and creatinine today is 1.39 patient will be discontinued off lisinopril and will receive some gentle hydration. She is also on oral Lasix which will be held at this time. 11/25/2022 Evaluated today sitting up in bed. No acute events overnight and neurological symptoms have resolved. MRI shows no acute intracranial process evident. There is atrophy with chronic appearing periventricular white matter ischemic changes. Subcortical and brainstem white matter changes are also present. Echocardiogram report pending. She was started on IV solumedrol and oral antibiotics for the cough and sinus congestion. Remains on updrafts. She reports feeling better today and her lungs are clear. Patient did have contrast yesterday and creatinine was up to 1.6 today this is likely contrast-induced nephropathy in addition to the renal injury from hypotension. We will recommend hydrate the patient and repeat labs tomorrow. Blood pressure remains low/normal and she is off verapamil and lisinopril at this time. 11/26/2022: Patient to undergo SLUMS examination for higher function testing by speech. Suggestive of dementia. Though not severe. Patient probably had a transient global amnesia episode/some episode of confusion from underlying cognitive impairment. Care was discussed length with the patient. Questions answered. Prescriptions were sent. Patient will be moving in with her daughter is staying with her. History symptoms better. Stop steroids. Patient has chronic left eye ptosis and left nasal labial for weakening. Per the daughter. Discussion and discharge planning more than 35 minutes Past medical history to include: Asthma, GERD, hyperlipidemia, hypertension, osteoarthritis, paroxysmal atrial fibrillation, varicose veins, stomach ulcer, diverticulitis. Esophagitis, gastritis, internal/external hemorrhoids, watchman procedure, esophagitis, internal hemorrhoids. Right carotid 50-69% stenosis Social history: Does not smoke or drink Cold. Lives alone. Physical examination: VITAL SIGNS: 97.3, 92, 16, 136/79, 94% room air GENERAL: Up in bed, comfortable EYES: Pupils equal. Conjunctiva pale. HEENT: External appearance of nose and ears normal, oral cavity grossly normal. Very hard of hearing NECK: JVD not raised; masses not palpable. HEART: First and second heart sounds are normal; no edema. LUNGS: Respiratory rate normal, decreased breaths sounds. ABDOMEN: Soft, nontender, liver spleen not palpable, no masses palpable. PSYCH: Able to hold on to a regular conversation. Slight forgetfulness. MUSCULAR skeletal:: Evidence of OA especially in the hands NEUROLOGICAL: Cranial nerves grossly intact; no facial asymmetry, power and sensation grossly intact. INVESTIGATIONS, reviewed in the clinical context: CT angiogram head and neck: Unremarkable EEG: Normal Carotid Doppler: No hemodynamically significant stenosis. Brain MRI: Unremarkable, atrophic chronic appearing 70 periventricular white matter ischemic changes. November 26: White count 16.2 hemoglobin 13.3 platelets 204 potassium 3.8 creatinine 1.1 LDL 96.4 proBNP 569 ammonia less than 9 TSH 0.638 EKG tracing personally reviewed by me-normal sinus rhythm WBC 7.8 hemoglobin 15.7 platelets 168 potassium 4.5 BUN 19 [address] brain: Chronic changes Previous investigations from July 2022: EEG: No seizure activity. 2-D echocardiogram: EF 55-60%. Carotid Doppler: Atheromatous plaquing between 50-69% on the left ICA. Nonvisualization of the right vertebral artery Ultrasound KUB: Corticomedullary differentiation maintained. Unremarkable MRI brain with and without contrast: Some chronic changes Assessment and plan: -Probable transient global amnesia. Risk factors same as TIA. aspirin. Pravachol. Neurology reviewed -Cognitive impairment. Patient did SLUMS examination, was given by the speech therapist. Patient scored a 19 out of 30. -Atheromatous plaquing between 50-69% on the left ICA. Nonvisualization of the right vertebral artery Baby aspirin. Follow-up with Dr. Mota outpatient -Internal hemorrhoids. - moderate persistent asthma, continue with Symbicort -Chronic kidney disease, stage 2, likely nephrosclerosis -Acute COPD exacerbation and is secondhand smoke exposure Resume bronchodilators from home. Stop prednisone. -GERD, on PPI -Hyperlipidemia, on Pravachol -Essential hypertension, on verapamil ER, Univasc, nadolol -Primary osteoarthritis, use Tylenol when necessary -Paroxysmal atrial fibrillation currently in sinus rhythm -Chronic Esophagitis and gastritis., On PPI -Very hard of hearing Hearing aids Disposition: Patient now moving into daughter's house Plan - Discharge Summary New Discharge Prescriptions: New Aspirin 81 mg PO DAILY tab Benzonatate [Tessalon Perles] 100 mg PO TID PRN #90 cap PRN Reason: Cough Donepezil [Aricept] 5 mg PO HS #30 tab Folic Acid 1 mg PO DAILY #30 tab Cyanocobalamin [Vitamin B-12] 500 mcg PO DAILY #30 tab Pyridoxine [Vitamin B-6] 50 mg PO DAILY #30 tab Budesonide/Formoterol Fumarate [Symbicort 160-4.5 Mcg Inhaler] 1 puff INHALATION BID #10.2 gm Continue Pravastatin Sodium [Pravachol] 40 mg PO DAILY Baclofen [Lioresal] 10 mg PO TID PRN PRN Reason: Muscle Spasm nadoloL [Nadolol] 40 mg PO DAILY Latanoprost [Xalatan 0.005%] 1 drop BOTH EYES HS Budesonide/Formoterol Fumarate [Symbicort 160-4.5 Mcg Inhaler] 1 puff INHALATION RT-BID Albuterol Nebulized [Ventolin Nebulized] 2.5 mg INHALATION RT-TID Omeprazole 20 mg PO DAILY cycloSPORINE 0.05% OPHTH SOLN [Restasis] 1 drop BOTH EYES BID Albuterol Inhaler [Ventolin Hfa Inhaler] 1 - 2 puff INHALATION RT-Q6H PRN PRN Reason: Shortness Of Breath HYDROcodone/APAP 7.5-325MG [[place] 7.5-325] 1 tab PO QID Discontinued Moexipril [Univasc] 7.5 mg PO DAILY Magnesium Oxide [Magox 400] 400 mg PO DAILY 30 Days #30 tablet Potassium Chloride ER [K-Dur 20] 20 meq PO DAILY Furosemide [Lasix] 20 mg PO DAILY Umeclidinium [place] [Incruse Ellipta] 62.5 mcg INHALATION RT-DAILY Verapamil HCl [Verapamil ER] 240 mg PO BID Discharge Medication List Baclofen [Lioresal] 10 mg PO TID PRN 07/20/15 [History] Pravastatin Sodium [Pravachol] 40 mg PO DAILY 07/20/15 [History] Latanoprost [Xalatan 0.005%] 1 drop BOTH EYES HS 10/15/16 [History] nadoloL [Nadolol] 40 mg PO DAILY 10/15/16 [History] Albuterol Nebulized [Ventolin Nebulized] 2.5 mg INHALATION RT-TID 08/11/17 [History] Budesonide/Formoterol Fumarate [Symbicort 160-4.5 Mcg Inhaler] 1 puff INHALATION RT-BID 08/11/17 [History] Omeprazole 20 mg PO DAILY 06/25/20 [History] cycloSPORINE 0.05% OPHTH SOLN [Restasis] 1 drop BOTH EYES BID 08/07/20 [History] Albuterol Inhaler [Ventolin Hfa Inhaler] 1 - 2 puff INHALATION RT-Q6H PRN 11/22/22 [History] HYDROcodone/APAP 7.5-325MG [[place] 7.5-325] 1 tab PO QID 11/22/22 [History] Aspirin 81 mg PO DAILY tab 11/26/22 [Rx] Benzonatate [Tessalon Perles] 100 mg PO TID PRN #90 cap 11/26/22 [Rx] Budesonide/Formoterol Fumarate [Symbicort 160-4.5 Mcg Inhaler] 1 puff INHALATION BID #10.2 gm 11/26/22 [Rx] Cyanocobalamin [Vitamin B-12] 500 mcg PO DAILY #30 tab 11/26/22 [Rx] Donepezil [Aricept] 5 mg PO HS #30 tab 11/26/22 [Rx] Folic Acid 1 mg PO DAILY #30 tab 11/26/22 [Rx] Pyridoxine [Vitamin B-6] 50 mg PO DAILY #30 tab 11/26/22 [Rx] Follow up Appointment(s)/Referral(s): Zbigniew Gary DO [Primary Care Provider] - 1-2 days Iris Gonzalez MD [STAFF PHYSICIAN] - 1 Week
== END 2022-11-26 12:10 | disposition home or self-care (01) ==
LOC: EC 12:07 → 6NMEDSUR 18:58 → OBSVTOIN 11-24 17:36 → INTOOBSV 11-24 17:36 → UNDODISIN 11-26 12:10
PROVIDERS: ADMIT Hospitalist; ATTEND Hospitalist
DX: G31.84 Mild cognitive impairment of uncertain or unknown etiology (principal); J44.1 Chronic obstructive pulmonary disease with (acute) exacerbation; J45.40 Moderate persistent asthma, uncomplicated; I48.0 Paroxysmal atrial fibrillation; I65.23 Occlusion and stenosis of bilateral carotid arteries; I12.9 Hypertensive chronic kidney disease with stage 1 through stage 4 chronic kidney disease, or unspecified chronic kidney disease; N18.2 Chronic kidney disease, stage 2 (mild); I95.9 Hypotension, unspecified; M21.371 Foot drop, right foot; E78.5 Hyperlipidemia, unspecified; H02.402 Unspecified ptosis of left eyelid; M19.91 Primary osteoarthritis, unspecified site; K57.90 Diverticulosis of intestine, part unspecified, without perforation or abscess without bleeding; D75.89 Other specified diseases of blood and blood-forming organs; R45.1 Restlessness and agitation; I83.90 Asymptomatic varicose veins of unspecified lower extremity; H91.90 Unspecified hearing loss, unspecified ear; K64.8 Other hemorrhoids; K29.50 Unspecified chronic gastritis without bleeding; K21.00 Gastro-esophageal reflux disease with esophagitis, without bleeding; Z77.22 Contact with and (suspected) exposure to environmental tobacco smoke (acute) (chronic); Z79.51 Long term (current) use of inhaled steroids; Z79.899 Other long term (current) drug therapy; Z95.818 Presence of other cardiac implants and grafts; Z87.19 Personal history of other diseases of the digestive system; Z60.2 Problems related to living alone; Z87.01 Personal history of pneumonia (recurrent); Z87.74 Personal history of (corrected) congenital malformations of heart and circulatory system; Z86.010 Personal history of colon polyps; H40.9 Unspecified glaucoma; Z90.49 Acquired absence of other specified parts of digestive tract; Z98.42 Cataract extraction status, left eye; Z98.41 Cataract extraction status, right eye; Z98.51 Tubal ligation status; Z90.710 Acquired absence of both cervix and uterus; Z98.890 Other specified postprocedural states; Z97.4 Presence of external hearing-aid; Z87.11 Personal history of peptic ulcer disease; Z82.5 Family history of asthma and other chronic lower respiratory diseases; Z82.61 Family history of arthritis; Z83.79 Family history of other diseases of the digestive system
CPT/HCPCS: 96376; 96372 ×4; 96374; 99285; 36415; 94640 ×7; 94760; 95816; 93005; 93308; 97161; 97165; 92523; 84207; 83880; 80061 ×2; 80053; 80048 ×3; 84443; 82607; 82140; 82746; 83735; 84484; 85025 ×2; 85610; 85730; 81001; 71046; 93880; 70496; 70450; 70498; 70553; G0378 ×5; J1644 ×4; J2920 ×2; J7512; Q9967; A9585

== ENCOUNTER → 2022-12-04 | Outpatient (CLI) | payer MEDICARE, OTHER ==
--- NOTE | 2022-12-05 09:46 | MM ---
Reason for Exam: Screening (asymptomatic). Last mammogram was performed 1 year(s) and 4 month(s) ago. Patient History: Menarche at age 15. First Full-Term at age 24. Hysterectomy at age 29. Postmenopausal. 03/26/2016, US discontinued breast bx RT on the right side. Sister had breast cancer, age 60. Risk Values: Britni 5 year model risk: 3.1%. NCI Lifetime model risk: 5.5%. Prior Study Comparison: 02/05/2019 Bilateral Screening Mammogram, [facility]. 04/14/2020 Bilateral Screening Mammogram, [facility]. 08/04/2021 Bilateral Screening Mammogram, [facility]. Tissue Density: The breast tissue is heterogeneously dense. This may lower the sensitivity of mammography. Findings: Analyzed By CAD. There is no suspicious group of microcalcifications or new suspicious mass in either breast. Overall Assessment: Benign, BI-RAD 2 Management: Screening Mammogram of both breasts in 1 year. . Patient should continue monthly self-breast exams. A clinical breast exam by your physician is recommended on an annual basis. This exam should not preclude additional follow-up of suspicious palpable abnormalities. Note on Britni scores and lifetime risk: 1. A Britni score greater than 3% is considered moderate risk. If this is the case, consider specialist referral to assess eligibility for a risk reducing agent. 2. If overall lifetime risk for the development of breast cancer is 20% or higher, the patient may qualify for future screening with alternating mammogram and breast MRI. Electronically signed and approved by: Jairo Levy M.D. Radiologis
== END | disposition home or self-care (01) ==
LOC: RADMAMWWP 14:58
PROVIDERS: ATTEND Family Medicine
DX: Z12.31 Encounter for screening mammogram for malignant neoplasm of breast (principal); Z78.0 Asymptomatic menopausal state; Z80.3 Family history of malignant neoplasm of breast
CPT/HCPCS: 77067

== ENCOUNTER 2023-03-19 12:52 | Emergency (ER) | payer MEDICARE, OTHER ==
--- NOTE | 2023-03-19 13:14 | ED ---
General Adult HPI - General Source: patient, family, RN notes reviewed Mode of arrival: ambulatory Limitations: no limitations <Kenn Beal - Last Filed: 03/19/23 13:16> <Brodie Lock - Last Filed: 03/19/23 20:57> - General Stated complaint: sob back pain wheezing ranulfo colored poop Time Seen by Provider: 03/19/23 13:14 - History of Present Illness Initial comments: 77-year-old female presents emergency Department chief complaint of increasing shortness of breath, chest congestion and abnormal stool. Patient recently had COVID-19 was given antibiotics by PCP. Patient started having increasing wheezing and shortness of breath. She does have underlying COPD. She also states that her stool color is is abnormal. She states that her stool is a rust colored She states she feels more weak than usual. (Kenn Beal) Dictation was produced using [employer] dictation software. please excuse any gram matical, word or spelling errors. Chief Complaint: 77-year-old female presents with pleuritic back pain History of Present Illness: Patient is a well-appearing female with multiple comorbidities presents to the emergency department with back pain. States that she is test positive for cold 3 weeks ago. She is having shortness of breath and ranulfo-colored stool. Denies any black or bloody stools. Patient does take anticoagulation medications. She has been congested and having some left lower back pain worse when she takes a deep breath. States that it feels like some of the left scapula. The ROS documented in this emergency department record has been reviewed and confirmed by me. Those systems with pertinent positive or negative responses have been documented in the HPI. All other systems are other negative and/or noncontributory. (Brodie Lock) - Related Data Home Medications Medication Instructions Recorded Confirmed Baclofen [Lioresal] 10 mg PO TID PRN 07/20/15 11/22/22 Pravastatin Sodium [Pravachol] 40 mg PO DAILY 07/20/15 11/22/22 Latanoprost [Xalatan 0.005%] 1 drop BOTH EYES HS 10/15/16 11/22/22 nadoloL [Nadolol] 40 mg PO DAILY 10/15/16 11/22/22 Albuterol Nebulized [Ventolin 2.5 mg INHALATION RT-TID 08/11/17 11/22/22 Nebulized] Budesonide/Formoterol Fumarate 1 puff INHALATION RT-BID 08/11/17 11/22/22 [Symbicort 160-4.5 Mcg Inhaler] Omeprazole 20 mg PO DAILY 06/25/20 11/22/22 cycloSPORINE 0.05% OPHTH SOLN 1 drop BOTH EYES BID 08/07/20 11/22/22 [Restasis] Albuterol Inhaler [Ventolin Hfa 1 - 2 puff INHALATION RT-Q6H PRN 11/22/22 11/22/22 Inhaler] HYDROcodone/APAP 7.5-325MG [[place] 1 tab PO QID 11/22/22 11/22/22 7.5-325] Previous Rx's Medication Instructions Recorded Aspirin 81 mg PO DAILY tab 11/26/22 Benzonatate [Tessalon Perles] 100 mg PO TID PRN #90 cap 11/26/22 Budesonide/Formoterol Fumarate 1 puff INHALATION BID #10.2 gm 11/26/22 [Symbicort 160-4.5 Mcg Inhaler] Cyanocobalamin [Vitamin B-12] 500 mcg PO DAILY #30 tab 11/26/22 Donepezil [Aricept] 5 mg PO HS #30 tab 11/26/22 Folic Acid 1 mg PO DAILY #30 tab 11/26/22 Pyridoxine [Vitamin B-6] 50 mg PO DAILY #30 tab 11/26/22 Allergies Allergy/AdvReac Type Severity Reaction Status Date / Time No Known Allergies Allergy Verified 03/19/23 20:51 Review of Systems ROS Other: All systems not noted in ROS Statement are negative. <Kenn Beal - Last Filed: 03/19/23 13:16> ROS Other: All systems not noted in ROS Statement are negative. <Brodie Lock - Last Filed: 03/19/23 20:57> ROS Statement: Those systems with pertinent positive or pertinent negative responses have been documented in the HPI. Past Medical History Past Medical History: Atrial Fibrillation, Asthma, COPD, GERD/Reflux, GI Bleed, Hyperlipidemia, Hypertension, Osteoarthritis (OA), Pneumonia, Vascular Disorder Additional Past Medical History / Comment(s): YAVAPAI-APACHE, Bronchitis, gastric ulcer, diverticular disease, lower GI bleed/AV malformation with ablation, benign colon polyp, borderline hyperlipidemia, arthritis mostly in back, slight bilateral glaucoma, varicosities. History of Any Multi-Drug Resistant Organisms: None Reported Past Surgical History: Adenoidectomy, Appendectomy, Heart Catheterization, Hysterectomy, Tonsillectomy, Tubal Ligation Additional Past Surgical History / Comment(s): Colonoscopy/benign polypectomy/AV malformation ablation, bilateral cataract removals, watchmen procedure Past Anesthesia/Blood Transfusion Reactions: No Reported Reaction Additional Past Anesthesia/Blood Transfusion Reaction / Comment(s): never recieved blood before. Past Psychological History: No Psychological Hx Reported Smoking Status: Never smoker, Second hand smoke exposure Past Alcohol Use History: None Reported Past Drug Use History: None Reported - Past Family History Father Family Medical History: COPD Additional Family Medical History / Comment(s): EMPHYSEMA Mother Family Medical History: Osteoarthritis (OA) Additional Family Medical History / Comment(s): EMPHYSEMA, BOWEL OBSTRUCTION/COLOSTOMY <Kenn Beal - Last Filed: 03/19/23 13:16> General Exam <Kenn Beal - Last Filed: 03/19/23 13:16> <Brodie Lock - Last Filed: 03/19/23 20:57> - General Exam Comments Initial Comments: Visual Physical Exam Vital signs reviewed General: Well-appearing, nontoxic, no acute distress. Head: Normocephalic, atraumatic Eyes: PERRLA, EOMI ENT: Airway patent Chest: Nonlabored breathing Skin: No visual rash, normal skin tone Neuro: Alert and oriented 3 Musculoskeletal: No gross abnormalities (Kenn Beal) PHYSICAL EXAM: General Impression: Alert and oriented x3, not in acute distress HEENT: Normocephalic atraumatic, extra-ocular movements intact, pupils equal and reactive to light bilaterally, mucous membranes moist. Cardiovascular: Heart regular rate and rhythm Chest: Able to complete full sentences, no retractions, no tachypnea Abdomen: abdomen soft, non-tender, non-distended, no organomegaly Musculoskeletal: Pulses present and equal in all extremities, no peripheral edema Motor: no focal deficits noted Neurological: CN II-XII grossly intact, no focal motor or sensory deficits noted Skin: Intact with no visualized rashes Psych: Normal affect and mood (Brodie Lock) Course Vital Signs 03/19/23 03/19/23 03/19/23 13:19 19:30 19:31 Temperature 98 F Pulse Rate 87 81 Respiratory 18 18 16 Rate Blood Pressure 203/99 151/86 O2 Sat by Pulse 92 L 93 L Oximetry Medical Decision Making <Kenn Beal - Last Filed: 03/19/23 13:16> - Lab Data Result diagrams: 03/19/23 14:14 03/19/23 14:14 <Brodie Lock - Last Filed: 03/19/23 20:57> - Medical Decision Making I completed the quick note portion of this chart signed Kenn Beal PA-C (Kenn Beal) Was pt. sent in by a medical professional or institution (LISA Sandhu, SPORTS TEACHER, urgent care, hospital, or [place] health care facility...) When possible be specific @ -No Did you speak to anyone other than the patient for history (EMS, parent, family, police, friend...)? What history was obtained from this source @ -No Did you review nursing and triage notes (agree or disagree)? Why? @ -I reviewed and agree with nursing and triage notes Were old charts reviewed (outside hosp., previous admission, EMS record, old EKG, old radiological studies, urgent care reports/EKG's, [place] health care facility records)? Report findings @ -No old charts were reviewed Differential Diagnosis (chest pain, altered mental status, abdominal pain women, abdominal pain men, vaginal bleeding, musculoskeletal, weakness, fever, dyspnea, syncope, headache, dizziness, GI bleed, back pain, seizure, CVA, palpatations, mental health)? @ -Differential Musculoskeletal: Muscular strain, contusion, ligament sprain, fracture, arthritis, septic arthritis, bursitis, cellulitis, muscle spasm, nerve compression, DVT, arterial occlusion, herpes zoster, electrolyte abnormality, tumor.... This is not meant to be in all inclusive list EKG interpreted by me (3pts min.). @ -None done X-rays interpreted by me (1pt min.). @ -Chest x-ray shows no acute processes. CT interpreted by me (1pt min.). @ -CT angiography shows no pulmonary alcoholism or any other acute processes U/S interpreted by me (1pt. min.). @ -None done What testing was considered but not performed or refused? (CT, X-rays, U/S, labs )? Why? @ -None What meds were considered but not given or refused? Why? @ -None Did you discuss the management of the patient with other professionals (professionals i.e. , PA, SPORTS TEACHER, lab, RT, psych nurse, healthcare social worker, magazine supervisor, teacher, animal control officer, clinical case manager)? Give summary @ -No Was smoking cessation discussed for >3mins.? @ -No Was critical care preformed (if so, how long)? @ -No Were there social determinants of health that impacted care today? How? (Homelessness, low income, unemployed, alcoholism, drug addiction, transportation, low edu. Level, literacy, decrease access to med. care, correction, rehab)? @ -No Was there de-escalation of care discussed even if they declined (Discuss DNR or withdrawal of care, Hospice)? DNR status @ -No What co-morbidities impacted this encounter? (DM, HTN, Smoking, COPD, CAD, Cancer, CVA, ARF, Chemo, Hep., AIDS, mental health diagnosis, sleep apnea, morbid obesity)? @ -None Was patient admitted / discharged? Hospital course, mention meds given and route, prescriptions, significant lab abnormalities, going to OR and other pertinent info. @ -77 Year-old well-appearing female presents emergency department for pleuritic back pain. She's been covering from Covid and URI symptoms. Laboratory evaluation obtained. CBC within acceptable limits. Coag panel notable panel within acceptable limits. 2 troponins are unremarkable. Elevated d-dimer 0.89. Magnesium is 1.3. Patient given oral magnesium supplementation. BNP is 1670. Patient's well-appearing she does not appear to be dyspneic at this time. CT angiography of the chest is negative for any acute processes. Serial troponins are negative. Disposition of several discussions agreeable to discharge. Undiagnosed new problem with uncertain prognosis? @ -No Drug Therapy requiring intensive monitoring for toxicity (Heparin, Nitro, Insulin, Cardizem)? @ -No Were any procedures done? @ -No Diagnosis/symptom? Acute, or Chronic, or Acute on Chronic? Uncomplicated (without systemic symptoms) or Complicated (systemic symptoms)? @ -Pleurisy (Brodie Lock) - Lab Data Lab Results 03/19/23 03/19/23 03/19/23 Range/Units 14:14 14:14 14:14 WBC 13.8 H (3.8-10.6) k/uL RBC 4.91 (3.80-5.40) m/uL Hgb 16.4 H (11.4-16.0) gm/dL Hct 50.5 H (34.0-46.0) % MCV 102.9 H (80.0-100.0) fL MCH 33.3 (25.0-35.0) pg MCHC 32.4 (31.0-37.0) g/dL RDW 13.2 (11.5-15.5) % Plt Count 273 (150-450) k/uL MPV 9.0 Neutrophils % 76 % Lymphocytes % 16 % Monocytes % 5 % Eosinophils % 1 % Basophils % 0 % Neutrophils # 10.5 H (1.3-7.7) k/uL Lymphocytes # 2.3 (1.0-4.8) k/uL Monocytes # 0.7 (0-1.0) k/uL Eosinophils # 0.2 (0-0.7) k/uL Basophils # 0.0 (0-0.2) k/uL Macrocytosis Slight PT 11.3 (10.0-12.5) sec INR 1.0 (<1.2) APTT 24.3 (22.0-30.0) sec D-Dimer (<0.60) mg/L FEU Sodium 143 (137-145) mmol/L Potassium 4.0 (3.5-5.1) mmol/L Chloride 100 (98-107) mmol/L Carbon Dioxide 31 H (22-30) mmol/L Anion Gap 12 mmol/L BUN 23 H (7-17) mg/dL Creatinine 0.87 (0.52-1.04) mg/dL Est GFR (CKD-EPI)AfAm 74 (>60 ml/min/1.73 sqM) Est GFR (CKD-EPI)NonAf 64 (>60 ml/min/1.73 sqM) Glucose 114 H (74-99) mg/dL Plasma Lactic Acid Mckinley (0.7-2.0) mmol/L Calcium 10.8 H (8.4-10.2) mg/dL Magnesium 1.3 L (1.6-2.3) mg/dL Total Bilirubin 1.1 (0.2-1.3) mg/dL AST 33 (14-36) U/L ALT 19 (4-34) U/L Alkaline Phosphatase 117 (38-126) U/L Troponin I (0.000-0.034) ng/mL NT-Pro-B Natriuret Pep 1670 pg/mL Total Protein 7.6 (6.3-8.2) g/dL Albumin 4.4 (3.5-5.0) g/dL 03/19/23 03/19/23 03/19/23 Range/Units 14:14 14:14 19:39 WBC (3.8-10.6) k/uL RBC (3.80-5.40) m/uL Hgb (11.4-16.0) gm/dL Hct (34.0-46.0) % MCV (80.0-100.0) fL MCH (25.0-35.0) pg MCHC (31.0-37.0) g/dL RDW (11.5-15.5) % Plt Count (150-450) k/uL MPV Neutrophils % % Lymphocytes % % Monocytes % % Eosinophils % % Basophils % % Neutrophils # (1.3-7.7) k/uL Lymphocytes # (1.0-4.8) k/uL Monocytes # (0-1.0) k/uL Eosinophils # (0-0.7) k/uL Basophils # (0-0.2) k/uL Macrocytosis PT (10.0-12.5) sec INR (<1.2) APTT (22.0-30.0) sec D-Dimer 0.89 H (<0.60) mg/L FEU Sodium (137-145) mmol/L Potassium (3.5-5.1) mmol/L Chloride (98-107) mmol/L Carbon Dioxide (22-30) mmol/L Anion Gap mmol/L BUN (7-17) mg/dL Creatinine (0.52-1.04) mg/dL Est GFR (CKD-EPI)AfAm (>60 ml/min/1.73 sqM) Est GFR (CKD-EPI)NonAf (>60 ml/min/1.73 sqM) Glucose (74-99) mg/dL Plasma Lactic Acid Mckinley 1.3 (0.7-2.0) mmol/L Calcium (8.4-10.2) mg/dL Magnesium (1.6-2.3) mg/dL Total Bilirubin (0.2-1.3) mg/dL AST (14-36) U/L ALT (4-34) U/L Alkaline Phosphatase (38-126) U/L Troponin I 0.018 (0.000-0.034) ng/mL NT-Pro-B Natriuret Pep pg/mL Total Protein (6.3-8.2) g/dL Albumin (3.5-5.0) g/dL 03/19/23 Range/Units 19:39 WBC (3.8-10.6) k/uL RBC (3.80-5.40) m/uL Hgb (11.4-16.0) gm/dL Hct (34.0-46.0) % MCV (80.0-100.0) fL MCH (25.0-35.0) pg MCHC (31.0-37.0) g/dL RDW (11.5-15.5) % Plt Count (150-450) k/uL MPV Neutrophils % % Lymphocytes % % Monocytes % % Eosinophils % % Basophils % % Neutrophils # (1.3-7.7) k/uL Lymphocytes # (1.0-4.8) k/uL Monocytes # (0-1.0) k/uL Eosinophils # (0-0.7) k/uL Basophils # (0-0.2) k/uL Macrocytosis PT (10.0-12.5) sec INR (<1.2) APTT (22.0-30.0) sec D-Dimer (<0.60) mg/L FEU Sodium (137-145) mmol/L Potassium (3.5-5.1) mmol/L Chloride (98-107) mmol/L Carbon Dioxide (22-30) mmol/L Anion Gap mmol/L BUN (7-17) mg/dL Creatinine (0.52-1.04) mg/dL Est GFR (CKD-EPI)AfAm (>60 ml/min/1.73 sqM) Est GFR (CKD-EPI)NonAf (>60 ml/min/1.73 sqM) Glucose (74-99) mg/dL Plasma Lactic Acid Mckinley (0.7-2.0) mmol/L Calcium (8.4-10.2) mg/dL Magnesium (1.6-2.3) mg/dL Total Bilirubin (0.2-1.3) mg/dL AST (14-36) U/L ALT (4-34) U/L Alkaline Phosphatase (38-126) U/L Troponin I 0.016 (0.000-0.034) ng/mL NT-Pro-B Natriuret Pep pg/mL Total Protein (6.3-8.2) g/dL Albumin (3.5-5.0) g/dL Disposition <Kenn Beal - Last Filed: 03/19/23 13:16> Is patient prescribed a controlled substance at d/c from ED?: No Time of Disposition: 20:57 <Brodie Lock - Last Filed: 03/19/23 20:57> Clinical Impression: Back pain Disposition: HOME SELF-CARE Condition: Fair Instructions (If sedation given, give patient instructions): Back Pain (ED) Referrals: Zbigniew Gary DO [Primary Care Provider] - 1-2 days
--- NOTE | 2023-03-19 14:13 | XR ---
EXAMINATION TYPE: XR chest 2V DATE OF EXAM: 03/19/2023 COMPARISON: 11/24/2022 HISTORY: Shortness of breath TECHNIQUE: Frontal and lateral views of the chest are obtained. FINDINGS: Scattered senescent parenchymal changes noted. Hyperinflation compatible with COPD. No evidence for infiltrate. No evidence for atelectasis. Heart size is stable. Mediastinal structures are stable and grossly unremarkable. No evidence for hilar prominence. Degenerative changes dorsal spine. IMPRESSION: 1. No evidence for acute pulmonary disease.
[2023-03-19 14:32] LABS: Basophils % (A) 0 %; Eosinophils # (A) 0.2 k/uL (0-0.7); Eosinophils % (A) 1 %; HCT 50.5 % (34.0-46.0); HGB 16.4 gm/dL (11.4-16.0); Lymphocytes # (A) 2.3 k/uL (1.0-4.8); Lymphocytes % (A) 16 %; MCH 33.3 pg (25.0-35.0); MCHC 32.4 g/dL (31.0-37.0); MCV 102.9 fL (80.0-100.0); Macrocytosis Slight; Monocytes # (A) 0.7 k/uL (0-1.0); Monocytes % (A) 5 %; Neutrophils # (A) 10.5 k/uL (1.3-7.7); Neutrophils % (A) 76 %; Platelet Count 273 k/uL (150-450); RBC 4.91 m/uL (3.80-5.40); RDW 13.2 % (11.5-15.5); WBC 13.8 k/uL (3.8-10.6)
[2023-03-19 15:01] LABS: ALT 19 U/L (4-34); AST 33 U/L (14-36); African American GFR (CKD) 74 (>60 ml/min/1.73 sqM); Albumin 4.4 g/dL (3.5-5.0); Alkaline Phosphatase 117 U/L (38-126); Anion Gap 12 mmol/L; Blood Urea Nitrogen 23 mg/dL (7-17); Calcium 10.8 mg/dL (8.4-10.2); Carbon Dioxide 31 mmol/L (22-30); Chloride 100 mmol/L (98-107); Glucose 114 mg/dL (74-99); Magnesium 1.3 mg/dL (1.6-2.3); Non-African American GFR(CKD) 64 (>60 ml/min/1.73 sqM); Sodium 143 mmol/L (137-145); Total Bilirubin 1.1 mg/dL (0.2-1.3); Total Protein 7.6 g/dL (6.3-8.2)
[2023-03-19 15:06] LABS: NT-Pro-B-Type Natriuretic Pept 1670 pg/mL; Partial Thromboplastin Time 24.3 sec (22.0-30.0); Prothrombin Time 11.3 sec (10.0-12.5)
[2023-03-19] MEDS ORDERED: MAGNESIUM OXIDE 400 MG TAB PO STA (20:31)
--- NOTE | 2023-03-19 20:44 | CT ---
EXAMINATION TYPE: CT angio chest DATE OF EXAM: 03/19/2023 COMPARISON: 10/20/2020 HISTORY: elevated d-bella CT DLP: 192.4 mGycm CONTRAST: CT chest with contrast and 3D reconstruction with MIP imaging is performed with IV Contrast, patient injected with 80cc mL of Isovue 300. Contrast-enhanced CT of the chest was performed through the course of the pulmonary arteries with annabelle g and mediastinal window settings submitted. 3D reconstruction with MIP imaging was also performed. PULMONARY ARTERIES: The pulmonary arteries and their major tributaries are patent. I do not see kandy dence for sizable filling defect to suggest pulmonary embolic process. LUNGS: The lungs are clear and free of infiltrate. Atelectasis adjacent to the left heart border. No pulmonary nodule or mass is detected. No pleural effusion. MEDIASTINUM: Thoracic aorta is of normal caliber.. The heart is enlarged. No evidence for mediastin al mass. No mediastinal lymph nodes greater than 1cm. HILAR STRUCTURES: No evidence for mass. No hilar lymph nodes greater than 1 cm. UPPER ABDOMEN: No significant abnormality is seen. IMPRESSION: 1. No evidence for Pulmonary embolism at this time.
[2023-03-19 21:32] VITALS: BP 150/82; PULSE 82; RESP 20; TEMP 98.2
== END 2023-03-19 21:14 | disposition home or self-care (01) ==
LOC: EC 12:52
DX: M54.50 Low back pain, unspecified (principal); R79.89 Other specified abnormal findings of blood chemistry; E11.36 Type 2 diabetes mellitus with diabetic cataract; I10 Essential (primary) hypertension; E78.5 Hyperlipidemia, unspecified; J44.89 Other specified chronic obstructive pulmonary disease; K21.9 Gastro-esophageal reflux disease without esophagitis; Z79.01 Long term (current) use of anticoagulants; Z79.51 Long term (current) use of inhaled steroids; Z79.899 Other long term (current) drug therapy; Z90.49 Acquired absence of other specified parts of digestive tract
CPT/HCPCS: 36415; 93005; 85379; 83880; 80053; 83605; 83735; 84484; 85025; 85610; 85730; 71046; 71275; 99285; Q9967

== ENCOUNTER 2023-08-07 15:11 | Emergency (ER) | payer MEDICARE, OTHER ==
--- NOTE | 2023-08-07 16:15 | ED ---
General Adult HPI - General Chief complaint: Altered Mental Status Stated complaint: Lethargic- took to much of her meds Time Seen by Provider: 08/07/23 15:57 Source: patient, family Mode of arrival: wheelchair Limitations: no limitations - History of Present Illness Initial comments: Dictation was produced using [employer] dictation software. please excuse any grammatical, word or spelling errors. Chief Complaint: 78-year-old female presents to the emergency department for accidentally taking too much of her home medications. History of Present Illness: Patient 78-year-old female she is brought in by her daughter. Patient has history of dementia. She is at home. Daughter arranges her medications on a schedule. Daughter noticed that patient was a little sleepy upon reevaluation. She looked at her medications and noticed that she patient took an extra 1 to 2 days worth of her home medications. Patient sleepiness resolved. They contacted primary care doctor told her to come to the emergency department to be evaluated. Patient has no complaints acutely. Patient's medications were reviewed including vitamin B, omeprazole, mirtazapine, pravastatin, aspirin, prazosin, vitamin D, potassium, metoprolol, folic acid, vitamin C, losartan, vitamin B12. She took either 2 or 4 of these pills. The ROS documented in this emergency department record has been reviewed and confirmed by me. Those systems with pertinent positive or negative responses have been documented in the HPI. All other systems are other negative and/or noncontributory. - Related Data Home Medications Medication Instructions Recorded Confirmed Baclofen [Lioresal] 10 mg PO TID PRN 07/20/15 11/22/22 Pravastatin Sodium [Pravachol] 40 mg PO DAILY 07/20/15 11/22/22 Latanoprost [Xalatan 0.005%] 1 drop BOTH EYES HS 10/15/16 11/22/22 nadoloL [Nadolol] 40 mg PO DAILY 10/15/16 11/22/22 Albuterol Nebulized [Ventolin 2.5 mg INHALATION RT-TID 08/11/17 11/22/22 Nebulized] Budesonide/Formoterol Fumarate 1 puff INHALATION RT-BID 08/11/17 11/22/22 [Symbicort 160-4.5 Mcg Inhaler] Omeprazole 20 mg PO DAILY 06/25/20 11/22/22 cycloSPORINE 0.05% OPHTH SOLN 1 drop BOTH EYES BID 08/07/20 11/22/22 [Restasis] Albuterol Inhaler [Ventolin Hfa 1 - 2 puff INHALATION RT-Q6H PRN 11/22/22 11/22/22 Inhaler] HYDROcodone/APAP 7.5-325MG [[place] 1 tab PO QID 11/22/22 11/22/22 7.5-325] Previous Rx's Medication Instructions Recorded Aspirin 81 mg PO DAILY tab 11/26/22 Benzonatate [Tessalon Perles] 100 mg PO TID PRN #90 cap 11/26/22 Budesonide/Formoterol Fumarate 1 puff INHALATION BID #10.2 gm 11/26/22 [Symbicort 160-4.5 Mcg Inhaler] Cyanocobalamin [Vitamin B-12] 500 mcg PO DAILY #30 tab 11/26/22 Donepezil [Aricept] 5 mg PO HS #30 tab 11/26/22 Folic Acid 1 mg PO DAILY #30 tab 11/26/22 Pyridoxine [Vitamin B-6] 50 mg PO DAILY #30 tab 11/26/22 Allergies Allergy/AdvReac Type Severity Reaction Status Date / Time No Known Allergies Allergy Verified 03/19/23 20:51 Review of Systems ROS Statement: Those systems with pertinent positive or pertinent negative responses have been documented in the HPI. ROS Other: All systems not noted in ROS Statement are negative. Past Medical History Past Medical History: Atrial Fibrillation, Asthma, COPD, GERD/Reflux, GI Bleed, Hyperlipidemia, Hypertension, Osteoarthritis (OA), Pneumonia, Vascular Disorder Additional Past Medical History / Comment(s): ASSINIBOINE AND [place], Bronchitis, gastric ulcer, diverticular disease, lower GI bleed/AV malformation with ablation, benign colon polyp, borderline hyperlipidemia, arthritis mostly in back, slight bilateral glaucoma, varicosities. History of Any Multi-Drug Resistant Organisms: None Reported Past Surgical History: Adenoidectomy, Appendectomy, Heart Catheterization, Hysterectomy, Tonsillectomy, Tubal Ligation Additional Past Surgical History / Comment(s): Colonoscopy/benign polypectomy/AV malformation ablation, bilateral cataract removals, watchmen procedure Past Anesthesia/Blood Transfusion Reactions: No Reported Reaction Additional Past Anesthesia/Blood Transfusion Reaction / Comment(s): never recieved blood before. Past Psychological History: No Psychological Hx Reported Smoking Status: Never smoker, Second hand smoke exposure Past Alcohol Use History: None Reported Past Drug Use History: None Reported - Past Family History Father Family Medical History: COPD Additional Family Medical History / Comment(s): EMPHYSEMA Mother Family Medical History: Osteoarthritis (OA) Additional Family Medical History / Comment(s): EMPHYSEMA, BOWEL OBSTRUCTION/COLOSTOMY General Exam - General Exam Comments Initial Comments: PHYSICAL EXAM: General Impression: Alert and oriented x3/4, not in acute distress HEENT: Normocephalic atraumatic, extra-ocular movements intact, pupils equal and reactive to light bilaterally, mucous membranes moist. Cardiovascular: Heart regular rate and rhythm Chest: Able to complete full sentences, no retractions, no tachypnea Abdomen: abdomen soft, non-tender, non-distended, no organomegaly Musculoskeletal: Pulses present and equal in all extremities, no peripheral edema Motor: no focal deficits noted Neurological: CN II-XII grossly intact, no focal motor or sensory deficits noted Skin: Intact with no visualized rashes Psych: Normal affect and mood Limitations: no limitations Course Vital Signs 08/07/23 15:32 Temperature 99.1 F Pulse Rate 90 Respiratory 16 Rate Blood Pressure 147/79 O2 Sat by Pulse 96 Oximetry Medical Decision Making - Medical Decision Making Was pt. sent in by a medical professional or institution ([facility], [employer], urgent care, hospital, or half-way...) When possible be specific @ -No Did you speak to anyone other than the patient for history (EMS, parent, family, police, friend...)? What history was obtained from this source @ -No Did you review nursing and triage notes (agree or disagree)? Why? @ -I reviewed and agree with nursing and triage notes Were old charts reviewed (outside hosp., previous admission, EMS record, old EKG, old radiological studies, urgent care reports/EKG's, half-way records)? Report findings @ -No old charts were reviewed Differential Diagnosis (chest pain, altered mental status, abdominal pain women, abdominal pain men, vaginal bleeding, musculoskeletal, weakness, fever, dyspnea, syncope, headache, dizziness, GI bleed, back pain, seizure, CVA, palpatations, mental health)? @ -Not applicable EKG interpreted by me (3pts min.). @ -My EKG interpretation: Ventricular rate 90, sinus rhythm,. 194, cures 85, QTc 410. No OR prolongation, no QTC prolongation, no ST or T-wave changes noted. EKG compared to default value showing no changes. Overall, this EKG is unremarkable X-rays interpreted by me (1pt min.). @ -None done CT interpreted by me (1pt min.). @ -None done U/S interpreted by me (1pt. min.). @ -None done What testing was considered but not performed or refused? (CT, X-rays, U/S, labs)? Why? @ -None What meds were considered but not given or refused? Why? @ -None Did you discuss the management of the patient with other professionals (professionals i.e. , PA, [employer], lab, RT, psych nurse, school social worker, supply officer, teacher, unemployment insurance hearing officer, case supervisor)? Give summary @ -No Was smoking cessation discussed for >3mins.? @ -No Was critical care preformed (if so, how long)? @ -No Were there social determinants of health that impacted care today? How? (Homelessness, low income, unemployed, alcoholism, drug addiction, transportation, low edu. Level, literacy, decrease access to med. care, assisted, rehab)? @ -No Was there de-escalation of care discussed even if they declined (Discuss DNR or withdrawal of care, Hospice)? DNR status @ -No What co-morbidities impacted this encounter? (DM, HTN, Smoking, COPD, CAD, Cancer, CVA, ARF, Chemo, Hep., AIDS, mental health diagnosis, sleep apnea, morbid obesity)? @ -None Was patient admitted / discharged? Hospital course, mention meds given and route, prescriptions, significant lab abnormalities, going to OR and other pertinent info. @ -78-year-old female presents emergency with daughter for concerns of accidental prescription overdose. Patient took extra days worth of her usual medications. Patient has no complaints at the bedside. Vital signs stable. Laboratory evaluation shows mild leukocytosis of unclear significance likely stress leukocytosis. Magnesium 1.3. Patient given oral magnesium. Urinalysis negative. Urine drug screen negative. Patient monitored in the emergency department for 3 hours and 20 minutes. Reevaluated bedside at 6:30 PM found to be stable medical condition. Patient discharged Undiagnosed new problem with uncertain prognosis? @ -No Drug Therapy requiring intensive monitoring for toxicity (Heparin, Nitro, Insulin, Cardizem)? @ -No Were any procedures done? @ -No Diagnosis/symptom? Acute, or Chronic, or Acute on Chronic? Uncomplicated (without systemic symptoms) or Complicated (systemic symptoms)? @ -Accidental medication overdose Side effects of treatment? @ -No Exacerbation, Progression, or Severe Exacerbation? @ -No Poses a threat to life or bodily function? How? (Chest pain, [place], [place], pneumonia, PE, COPD, DKA, ARF, appy, cholecystitis, CVA, Diverticulitis, Homicidal, S uicidal, threat to staff... and all critical care pts) @ -No - Lab Data Result diagrams: 08/07/23 16:31 08/07/23 16:31 Lab Results 08/07/23 08/07/23 08/07/23 Range/Units 16:31 16:31 16:31 WBC 18.3 H (3.8-10.6) k/uL RBC 4.12 (3.80-5.40) m/uL Hgb 14.1 (11.4-16.0) gm/dL Hct 43.4 (34.0-46.0) % MCV 105.2 H (80.0-100.0) fL MCH 34.3 (25.0-35.0) pg MCHC 32.6 (31.0-37.0) g/dL RDW 12.6 (11.5-15.5) % Plt Count 149 L (150-450) k/uL MPV 8.9 Neutrophils % (Manual) 82 % Lymphocytes % (Manual) 8 % Monocytes % (Manual) 10 % Neutrophils # (Manual) 15.01 H (1.3-7.7) k/uL Lymphocytes # (Manual) 1.46 (1.0-4.8) k/uL Monocytes # (Manual) 1.83 H (0-1.0) k/uL Nucleated RBCs 0 (0-0) /100 WBC Manual Slide Review Performed Macrocytosis Slight Sodium 141 (137-145) mmol/L Potassium 4.6 (3.5-5.1) mmol/L Chloride 108 H (98-107) mmol/L Carbon Dioxide 25 (22-30) mmol/L Anion Gap 8 mmol/L BUN 28 H (7-17) mg/dL Creatinine 0.86 (0.52-1.04) mg/dL Est GFR (CKD-EPI)AfAm 75 (>60 ml/min/1.73 sqM) Est GFR (CKD-EPI)NonAf 65 (>60 ml/min/1.73 sqM) Glucose 108 H (74-99) mg/dL Calcium 9.8 (8.4-10.2) mg/dL Magnesium 1.3 L (1.6-2.3) mg/dL Total Bilirubin 1.3 (0.2-1.3) mg/dL AST 34 (14-36) U/L ALT 18 (4-34) U/L Alkaline Phosphatase 90 (38-126) U/L Total Protein 6.4 (6.3-8.2) g/dL Albumin 3.7 (3.5-5.0) g/dL Urine Color Urine Appearance (Clear) Urine pH (5.0-8.0) Ur Specific [place] (1.001-1.035) Urine Protein (Negative) Urine Glucose (UA) (Negative) Urine Ketones (Negative) Urine Blood (Negative) Urine Nitrite (Negative) Urine Bilirubin (Negative) Urine Urobilinogen (<2.0) mg/dL Ur Leukocyte Esterase (Negative) Urine RBC (0-5) /hpf Urine WBC (0-5) /hpf Ur Squamous Epith Cells (0-4) /hpf Urine Mucus (None) /hpf Urine Opiates Screen Detected H (NotDetected) Ur Oxycodone Screen Not Detected (NotDetected) Urine Methadone Screen Not Detected (NotDetected) Ur Barbiturates Screen Not Detected (NotDetected) U Tricyclic Antidepress Not Detected (NotDetected) Ur Phencyclidine Scrn Not Detected (NotDetected) Ur Amphetamines Screen Not Detected (NotDetected) U Methamphetamines Scrn Not Detected (NotDetected) U Benzodiazepines Scrn Not Detected (NotDetected) Urine Cocaine Screen Not Detected (NotDetected) U Marijuana (THC) Screen Not Detected (NotDetected) 08/07/23 Range/Units 18:05 WBC (3.8-10.6) k/uL RBC (3.80-5.40) m/uL Hgb (11.4-16.0) gm/dL Hct (34.0-46.0) % MCV (80.0-100.0) fL MCH (25.0-35.0) pg MCHC (31.0-37.0) g/dL RDW (11.5-15.5) % Plt Count (150-450) k/uL MPV Neutrophils % (Manual) % Lymphocytes % (Manual) % Monocytes % (Manual) % Neutrophils # (Manual) (1.3-7.7) k/uL Lymphocytes # (Manual) (1.0-4.8) k/uL Monocytes # (Manual) (0-1.0) k/uL Nucleated RBCs (0-0) /100 WBC Manual Slide Review Macrocytosis Sodium (137-145) mmol/L Potassium (3.5-5.1) mmol/L Chloride (98-107) mmol/L Carbon Dioxide (22-30) mmol/L Anion Gap mmol/L BUN (7-17) mg/dL Creatinine (0.52-1.04) mg/dL Est GFR (CKD-EPI)AfAm (>60 ml/min/1.73 sqM) Est GFR (CKD-EPI)NonAf (>60 ml/min/1.73 sqM) Glucose (74-99) mg/dL Calcium (8.4-10.2) mg/dL Magnesium (1.6-2.3) mg/dL Total Bilirubin (0.2-1.3) mg/dL AST (14-36) U/L ALT (4-34) U/L Alkaline Phosphatase (38-126) U/L Total Protein (6.3-8.2) g/dL Albumin (3.5-5.0) g/dL Urine Color Yellow Urine Appearance Clear (Clear) Urine pH 5.5 (5.0-8.0) Ur Specific [place] 1.026 (1.001-1.035) Urine Protein Trace H (Negative) Urine Glucose (UA) Negative (Negative) Urine Ketones Negative (Negative) Urine Blood Negative (Negative) Urine Nitrite Negative (Negative) Urine Bilirubin Negative (Negative) Urine Urobilinogen <2.0 (<2.0) mg/dL Ur Leukocyte Esterase Small H (Negative) Urine RBC 3 (0-5) /hpf Urine WBC 2 (0-5) /hpf Ur Squamous Epith Cells <1 (0-4) /hpf Urine Mucus Rare H (None) /hpf Urine Opiates Screen (NotDetected) Ur Oxycodone Screen (NotDetected) Urine Methadone Screen (NotDetected) Ur Barbiturates Screen (NotDetected) U Tricyclic Antidepress (NotDetected) Ur Phencyclidine Scrn (NotDetected) Ur Amphetamines Screen (NotDetected) U Methamphetamines Scrn (NotDetected) U Benzodiazepines Scrn (NotDetected) Urine Cocaine Screen (NotDetected) U Marijuana (THC) Screen (NotDetected) Disposition Clinical Impression: Medication overdose Disposition: HOME SELF-CARE Condition: Good Instructions (If sedation given, give patient instructions): Hypomagnesemia (ED) Is patient prescribed a controlled substance at d/c from ED?: No Referrals: Zbigniew Gary DO [Primary Care Provider] - 1-2 days Time of Disposition: 18:33
[2023-08-07 17:04] LABS: HCT 43.4 % (34.0-46.0); HGB 14.1 gm/dL (11.4-16.0); MCH 34.3 pg (25.0-35.0); MCHC 32.6 g/dL (31.0-37.0); MCV 105.2 fL (80.0-100.0); Macrocytosis Slight; Mean Platelet Volume 8.9; Platelet Count 149 k/uL (150-450); RBC 4.12 m/uL (3.80-5.40); RDW 12.6 % (11.5-15.5); WBC 18.3 k/uL (3.8-10.6)
[2023-08-07 17:05] LABS: ALT 18 U/L (4-34); African American GFR (CKD) 75 (>60 ml/min/1.73 sqM); Albumin 3.7 g/dL (3.5-5.0); Anion Gap 8 mmol/L; Blood Urea Nitrogen 28 mg/dL (7-17); Calcium 9.8 mg/dL (8.4-10.2); Carbon Dioxide 25 mmol/L (22-30); Chloride 108 mmol/L (98-107); Glucose 108 mg/dL (74-99); Non-African American GFR(CKD) 65 (>60 ml/min/1.73 sqM); Sodium 141 mmol/L (137-145); Total Bilirubin 1.3 mg/dL (0.2-1.3); Total Protein 6.4 g/dL (6.3-8.2)
[2023-08-07 17:11] LABS: AST 34 U/L (14-36); Alkaline Phosphatase 90 U/L (38-126); Magnesium 1.3 mg/dL (1.6-2.3); Potassium 4.6 mmol/L (3.5-5.1)
[2023-08-07 17:43] LABS: Amphetamine Screen,Urine Not Detected (NotDetected); Barbiturate Screen,Urine Not Detected (NotDetected); Benzodiazepines Screen,Urine Not Detected (NotDetected); Cocaine Screen,Urine Not Detected (NotDetected); Methadone Screen, Urine Not Detected (NotDetected); Opiate Screen,Urine Detected (NotDetected); Oxycodone Screen, Urine Not Detected (NotDetected); Phencyclidine Screen,Urine Not Detected (NotDetected); Tricyclic Antidepressant,Urine Not Detected (NotDetected); Urn Cannabinoid Scrn Not Detected (NotDetected)
[2023-08-07 18:12] LABS: Appearance,Urine Clear (Clear); Bilirubin,Urine Negative (Negative); Blood,Urine Negative (Negative); Color,Urine Yellow; Glucose,Urine (UA) Negative (Negative); Ketones,Urine Negative (Negative); Leukocyte Esterase,Urine Small (Negative); Mucus,Urine Rare /hpf; Nitrite,Urine Negative (Negative); PH, Urine 5.5 (5.0-8.0); Protein,Urine Trace (Negative); RBC,Urine 3 /hpf (0-5); Specific Gravity,Urine 1.026 (1.001-1.035); Squamous Epithelial Cell,Urine <1 /hpf (0-4); Urobilinogen,Urine <2.0 mg/dL (<2.0); WBC,Urine 2 /hpf (0-5)
[2023-08-07 18:23] LABS: Lymphocytes # (M) 1.46 k/uL (1.0-4.8); Monocytes # (M) 1.83 k/uL (0-1.0); Neutrophils # (M) 15.01 k/uL (1.3-7.7); Neutrophils % (M) 82 %; Nucleated Red Blood Cells 0 /100 WBC (0-0); Total Cells Counted 100
[2023-08-07] MEDS: MAGNESIUM OXIDE 400 MG TAB PO STA (18:50)
[2023-08-07 19:22] VITALS: BP 180/83; PULSE 95; RESP 18; TEMP 98.1
== END 2023-08-07 18:58 | disposition home or self-care (01) ==
LOC: EC 15:11
DX: T47.1X1A Poisoning by other antacids and anti-gastric-secretion drugs, accidental (unintentional), initial encounter (principal); R41.82 Altered mental status, unspecified; Z77.22 Contact with and (suspected) exposure to environmental tobacco smoke (acute) (chronic)
CPT/HCPCS: 36415; 80053; 80306; 81001; 83735; 85025; 93005; 99285

== ENCOUNTER 2023-08-30 10:11 | Inpatient (IN) | payer MEDICARE, OTHER ==
--- NOTE | 2023-08-30 10:59 | ED ---
Weakness HPI - General Chief complaint: Weakness Stated complaint: Weakness Time Seen by Provider: 08/30/23 10:27 Source: patient, EMS, RN notes reviewed Mode of arrival: EMS Limitations: no limitations - History of Present Illness Initial comments: 78-year-old female presents emergency department chief complaint of weakness. Patient states that last few days she has had this sensation throughout her body in which she states this pain also described as shaking sensation. Patient states she just feels weak she states she had her legs give out on her yesterday states that she might happen today but she also complains of bilateral upper extremity symptoms she denies any headache denies fevers no chest pain she is noted to be hypertensive patient and family states they have been trying to adjust her medications over the last several months with no full success. Patient denies any palpitations chest pain. Patient denies any visual disturbance. - Related Data Home Medications Medication Instructions Recorded Confirmed Pravastatin Sodium [Pravachol] 40 mg PO DAILY 07/20/15 08/30/23 Latanoprost [Xalatan 0.005%] 1 drop BOTH EYES HS 10/15/16 08/30/23 nadoloL [Nadolol] 40 mg PO DAILY 10/15/16 08/30/23 Budesonide/Formoterol Fumarate 1 puff INHALATION RT-BID 08/11/17 08/30/23 [Symbicort 160-4.5 Mcg Inhaler] Omeprazole 20 mg PO DAILY 06/25/20 08/30/23 Ascorbic Acid [Vitamin C] 1,000 mg PO DAILY 08/30/23 08/30/23 Carboxymethylcell/Glycerin/Pf 1 drop BOTH EYES QID PRN 08/30/23 08/30/23 [Refresh Relieva Pf 0.5-1% Drop] Cholecalciferol [Vitamin D3 (125 125 mcg PO DAILY 08/30/23 08/30/23 Mcg = 5000 Iu)] Folic Acid 0.8 mg PO DAILY 08/30/23 08/30/23 Losartan Potassium [Cozaar] 100 mg PO HS 08/30/23 08/30/23 Mirtazapine [Remeron] 7.5 mg PO HS 08/30/23 08/30/23 Potassium Chloride [Klor-Con M10] 20 meq PO DAILY 08/30/23 08/30/23 Prazosin [Minipress] 1 mg PO TID 08/30/23 08/30/23 Pyridoxine [Vitamin B-6] 100 mg PO DAILY 08/30/23 08/30/23 Previous Rx's Medication Instructions Recorded Aspirin 81 mg PO DAILY tab 11/26/22 Cyanocobalamin [Vitamin B-12] 500 mcg PO DAILY #30 tab 11/26/22 Allergies Allergy/AdvReac Type Severity Reaction Status Date / Time No Known Allergies Allergy Verified 08/30/23 11:10 Review of Systems ROS Statement: Those systems with pertinent positive or pertinent negative responses have been documented in the HPI. ROS Other: All systems not noted in ROS Statement are negative. Past Medical History Past Medical History: Atrial Fibrillation, Asthma, COPD, GERD/Reflux, GI Bleed, Hyperlipidemia, Hypertension, Osteoarthritis (OA), Pneumonia, Vascular Disorder Additional Past Medical History / Comment(s): MAKAH, Bronchitis, gastric ulcer, diverticular disease, lower GI bleed/AV malformation with ablation, benign colon polyp, borderline hyperlipidemia, arthritis mostly in back, slight bilateral glaucoma, varicosities. History of Any Multi-Drug Resistant Organisms: None Reported Past Surgical History: Adenoidectomy, Appendectomy, Heart Catheterization, Hysterectomy, Tonsillectomy, Tubal Ligation Additional Past Surgical History / Comment(s): Colonoscopy/benign polypectomy/AV malformation ablation, bilateral cataract removals, watchmen procedure Past Anesthesia/Blood Transfusion Reactions: No Reported Reaction Additional Past Anesthesia/Blood Transfusion Reaction / Comment(s): never recieved blood before. Past Psychological History: No Psychological Hx Reported Smoking Status: Never smoker, Second hand smoke exposure Past Alcohol Use History: None Reported Past Drug Use History: None Reported - Past Family History Father Family Medical History: COPD Additional Family Medical History / Comment(s): EMPHYSEMA Mother Family Medical History: Osteoarthritis (OA) Additional Family Medical History / Comment(s): EMPHYSEMA, BOWEL OBSTRUCTION/COLOSTOMY General Exam Limitations: no limitations General appearance: alert, in no apparent distress Head exam: Present: atraumatic, normocephalic, normal inspection Eye exam: Present: normal appearance, PERRL, EOMI. Absent: scleral icterus, conjunctival injection, periorbital swelling ENT exam: Present: normal exam, normal oropharynx, mucous membranes moist Neck exam: Present: normal inspection, full ROM. Absent: tenderness, meningismus, lymphadenopathy Respiratory exam: Present: normal lung sounds bilaterally. Absent: respiratory distress, wheezes, rales, rhonchi, stridor Cardiovascular Exam: Present: regular rate, normal rhythm, normal heart sounds. Absent: systolic murmur, diastolic murmur, rubs, gallop, clicks GI/Abdominal exam: Present: soft, normal bowel sounds. Absent: distended, tenderness, guarding, rebound, rigid Extremities exam: Present: other (No focal weakness, strength lower extremities 4/5 on the right 3/5 on the left, upper extremities equal/5 neurovascular intact with equal pulses no discoloration) Back exam: Present: full ROM, paraspinal tenderness, vertebral tenderness Neurological exam: Present: alert, oriented X3, CN II-XII intact, reflexes normal. Absent: motor sensory deficit Skin exam: Present: warm, dry, intact, normal color. Absent: rash Course Vital Signs 08/30/23 08/30/23 08/30/23 10:14 13:02 13:55 Temperature 98.5 F Pulse Rate 84 88 Respiratory 18 18 Rate Blood Pressure 208/112 190/96 163/83 O2 Sat by Pulse 94 L 96 Oximetry EKG Findings - EKG Comments: EKG Findings:: EKG performed at 11: 27 sinus rhythm with first-degree block 82 rate DC 215 QRS 81 QT/QTc 376/415 - EKG Results: EKG: interpreted by LYLA Medical Decision Making - Medical Decision Making Was pt. sent in by a medical professional or institution (LISA Sandhu, PERL PROGRAMMER, urgent care, hospital, or fpc...) When possible be specific @ -No Did you speak to anyone other than the patient for history (EMS, parent, family, police, friend...)? What history was obtained from this source @ -No Did you review nursing and triage notes (agree or disagree)? Why? @ -I reviewed and agree with nursing and triage notes Were old charts reviewed (outside hosp., previous admission, EMS record, old EKG, old radiological studies, urgent care reports/EKG's, fpc records)? Report findings @ -No old charts were reviewed Differential Diagnosis (chest pain, altered mental status, abdominal pain women, abdominal pain men, vaginal bleeding, weakness, fever, dyspnea, syncope, headache, dizziness, GI bleed, back pain, seizure, CVA, palpatations, mental health, musculoskeletal)? @ -Differential Weakness: Hypoglycemia, shock, sepsis, hyponatremia, anemia, infection, TN, ETOH, adverse medicine reaction, overdose, stroke, this is not meant to be an all-inclusive list. EKG interpreted by me (3pts min.). @ -As above X-rays interpreted by me (1pt min.). @ -X-ray thoracic spine degenerative changes, chest x-ray no evidence of pneumonia CT interpreted by me (1pt min.). @ -CT brain showing no acute intracranial hemorrhage or mass effect cervical spine CT degenerative changes throughout, CT lumbar spine degenerative changes U/S interpreted by me (1pt. min.). @ -None done What testing was considered but not performed or refused? (CT, X-rays, U/S, labs)? Why? @ -None What meds were considered but not given or refused? Why? @ -None Did you discuss the management of the patient with other professionals (professionals i.e. , PA, PERL PROGRAMMER, lab, RT, psych nurse, manager social responsibility, residential mortgage manager, teacher, medical information officer, case preparer and liner)? Give summary @ -Okay Dr. Pelaez for admission with consults to neuro and orthospine Was smoking cessation discussed for >3mins.? @ -No Was critical care preformed (if so, how long)? @ -No Were there social determinants of health that impacted care today? How? (Homelessness, low income, unemployed, alcoholism, drug addiction, transportation, low edu. Level, literacy, decrease access to med. care, care home, rehab)? @ -No Was there de-escalation of care discussed even if they declined (Discuss DNR or withdrawal of care, Hospice)? DNR status @ -No What co-morbidities impacted this encounter? (DM, HTN, Smoking, COPD, CAD, Cancer, CVA, ARF, Chemo, Hep., AIDS, mental health diagnosis, sleep apnea, morbi d obesity)? @ -None Was patient admitted / discharged? Hospital course, mention meds given and route , prescriptions, significant lab abnormalities, going to OR and other pertinent info. @ -Admitted patient presented for increasing weakness, difficulty ambulating falls, hypertension. Blood pressures improved after hydralazine. Patient is having increasing leg and upper extremity weakness without acute focal finding. This may be neurological in finding or generalized debilitation. Patient will have consults and close monitoring. Patient has no red flag symptoms. Undiagnosed new problem with uncertain prognosis? @ -No Drug Therapy requiring intensive monitoring for toxicity (Heparin, Nitro, Insulin, Cardizem)? @ -No Were any procedures done? @ -No Diagnosis/symptom? @ -Fall, hypertension, weakness Acute, or Chronic, or Acute on Chronic? @ -Acute Uncomplicated (without systemic symptoms) or Complicated (systemic symptoms)? @ -Complicated Side effects of treatment? @ -No Exacerbation, Progression, or Severe Exacerbation? @ -No Poses a threat to life or bodily function? How? (Chest pain, USA, TN, pneumonia, PE, COPD, DKA, ARF, appy, cholecystitis, CVA, Diverticulitis, Homicidal, Brenna cidal, threat to staff... and all critical care pts) @ -No - Lab Data Result diagrams: 08/30/23 11:25 08/30/23 11:25 Lab Results 08/30/23 08/30/23 08/30/23 Range/Units 11:25 11:25 11:25 WBC 9.4 (3.8-10.6) k/uL RBC 3.62 L (3.80-5.40) m/uL Hgb 12.1 (11.4-16.0) gm/dL Hct 38.7 (34.0-46.0) % MCV 106.8 H (80.0-100.0) fL MCH 33.5 (25.0-35.0) pg MCHC 31.3 (31.0-37.0) g/dL RDW 12.8 (11.5-15.5) % Plt Count 219 (150-450) k/uL MPV 8.3 Neutrophils % 74 % Lymphocytes % 13 % Monocytes % 6 % Eosinophils % 3 % Basophils % 0 % Neutrophils # 7.0 (1.3-7.7) k/uL Lymphocytes # 1.3 (1.0-4.8) k/uL Monocytes # 0.6 (0-1.0) k/uL Eosinophils # 0.3 (0-0.7) k/uL Basophils # 0.0 (0-0.2) k/uL Macrocytosis Moderate PT 10.6 (10.0-12.5) sec INR 1.0 (<1.2) APTT 26.3 (22.0-30.0) sec Sodium 140 (137-145) mmol/L Potassium 4.2 (3.5-5.1) mmol/L Chloride 105 (98-107) mmol/L Carbon Dioxide 33 H (22-30) mmol/L Anion Gap 2 mmol/L BUN 24 H (7-17) mg/dL Creatinine 0.82 (0.52-1.04) mg/dL Est GFR (CKD-EPI)AfAm 79 (>60 ml/min/1.73 sqM) Est GFR (CKD-EPI)NonAf 68 (>60 ml/min/1.73 sqM) Glucose 113 H (74-99) mg/dL Plasma Lactic Acid Mckinley (0.7-2.0) mmol/L Calcium 9.9 (8.4-10.2) mg/dL Phosphorus 3.5 (2.5-4.5) mg/dL Magnesium 1.5 L (1.6-2.3) mg/dL Total Bilirubin 1.3 (0.2-1.3) mg/dL AST 28 (14-36) U/L ALT 22 (4-34) U/L Alkaline Phosphatase 131 H (38-126) U/L Troponin I (0.000-0.034) ng/mL Total Protein 6.2 L (6.3-8.2) g/dL Albumin 3.3 L (3.5-5.0) g/dL Urine Color Urine Appearance (Clear) Urine pH (5.0-8.0) Ur Specific [place] (1.001-1.035) Urine Protein (Negative) Urine Glucose (UA) (Negative) Urine Ketones (Negative) Urine Blood (Negative) Urine Nitrite (Negative) Urine Bilirubin (Negative) Urine Urobilinogen (<2.0) mg/dL Ur Leukocyte Esterase (Negative) 08/30/23 08/30/23 08/30/23 Range/Units 11:25 11:25 12:51 WBC (3.8-10.6) k/uL RBC (3.80-5.40) m/uL Hgb (11.4-16.0) gm/dL Hct (34.0-46.0) % MCV (80.0-100.0) fL MCH (25.0-35.0) pg MCHC (31.0-37.0) g/dL RDW (11.5-15.5) % Plt Count (150-450) k/uL MPV Neutrophils % % Lymphocytes % % Monocytes % % Eosinophils % % Basophils % % Neutrophils # (1.3-7.7) k/uL Lymphocytes # (1.0-4.8) k/uL Monocytes # (0-1.0) k/uL Eosinophils # (0-0.7) k/uL Basophils # (0-0.2) k/uL Macrocytosis PT (10.0-12.5) sec INR (<1.2) APTT (22.0-30.0) sec Sodium (137-145) mmol/L Potassium (3.5-5.1) mmol/L Chloride (98-107) mmol/L Carbon Dioxide (22-30) mmol/L Anion Gap mmol/L BUN (7-17) mg/dL Creatinine (0.52-1.04) mg/dL Est GFR (CKD-EPI)AfAm (>60 ml/min/1.73 sqM) Est GFR (CKD-EPI)NonAf (>60 ml/min/1.73 sqM) Glucose (74-99) mg/dL Plasma Lactic Acid Mckinley 0.9 (0.7-2.0) mmol/L Calcium (8.4-10.2) mg/dL Phosphorus (2.5-4.5) mg/dL Magnesium (1.6-2.3) mg/dL Total Bilirubin (0.2-1.3) mg/dL AST (14-36) U/L ALT (4-34) U/L Alkaline Phosphatase (38-126) U/L Troponin I <0.012 (0.000-0.034) ng/mL Total Protein (6.3-8.2) g/dL Albumin (3.5-5.0) g/dL Urine Color Colorless Urine Appearance Clear (Clear) Urine pH 7.0 (5.0-8.0) Ur Specific [place] 1.006 (1.001-1.035) Urine Protein Negative (Negative) Urine Glucose (UA) Negative (Negative) Urine Ketones Negative (Negative) Urine Blood Negative (Negative) Urine Nitrite Negative (Negative) Urine Bilirubin Negative (Negative) Urine Urobilinogen <2.0 (<2.0) mg/dL Ur Leukocyte Esterase Negative (Negative) Disposition Clinical Impression: Weakness, Impaired ambulation, Falls, Hypertension Disposition: ADMITTED IP TO THIS HOSP Condition: Fair Referrals: Zbigniew Gary DO [Primary Care Provider] - 1-2 days Time of Disposition: 16:27
[2023-08-30] MEDS: SODIUM CHLORIDE 0.9% 500 ML 500 ML IV STA (11:31)
[2023-08-30 11:41] LABS: Basophils % (A) 0 %; Eosinophils # (A) 0.3 k/uL (0-0.7); Eosinophils % (A) 3 %; HCT 38.7 % (34.0-46.0); HGB 12.1 gm/dL (11.4-16.0); Lymphocytes # (A) 1.3 k/uL (1.0-4.8); Lymphocytes % (A) 13 %; MCH 33.5 pg (25.0-35.0); MCHC 31.3 g/dL (31.0-37.0); MCV 106.8 fL (80.0-100.0); Macrocytosis Moderate; Mean Platelet Volume 8.3; Monocytes # (A) 0.6 k/uL (0-1.0); Monocytes % (A) 6 %; Neutrophils % (A) 74 %; Platelet Count 219 k/uL (150-450); RBC 3.62 m/uL (3.80-5.40); RDW 12.8 % (11.5-15.5); WBC 9.4 k/uL (3.8-10.6)
[2023-08-30 11:44] LABS: Partial Thromboplastin Time 26.3 sec (22.0-30.0); Prothrombin Time 10.6 sec (10.0-12.5)
[2023-08-30 11:48] LABS: ALT 22 U/L (4-34); AST 28 U/L (14-36); African American GFR (CKD) 79 (>60 ml/min/1.73 sqM); Albumin 3.3 g/dL (3.5-5.0); Alkaline Phosphatase 131 U/L (38-126); Anion Gap 2 mmol/L; Blood Urea Nitrogen 24 mg/dL (7-17); Calcium 9.9 mg/dL (8.4-10.2); Carbon Dioxide 33 mmol/L (22-30); Chloride 105 mmol/L (98-107); Glucose 113 mg/dL (74-99); Magnesium 1.5 mg/dL (1.6-2.3); Non-African American GFR(CKD) 68 (>60 ml/min/1.73 sqM); Phosphorus 3.5 mg/dL (2.5-4.5); Potassium 4.2 mmol/L (3.5-5.1); Sodium 140 mmol/L (137-145); Total Bilirubin 1.3 mg/dL (0.2-1.3); Total Protein 6.2 g/dL (6.3-8.2)
--- NOTE | 2023-08-30 12:23 | CT ---
EXAMINATION TYPE: CT brain wo con CT DLP: 1083.6 mGycm, Automated exposure control for dose reduction was used. DATE OF EXAM: 08/30/2023 12:19 PM COMPARISON: CT brain 11/22/2022. CLINICAL INDICATION:Female, 78 years old with history of weakness, AMS TECHNIQUE: Brain: Axial CT images of the brain were obtained with coronal and sagittal reformats created and rev iewed. Contrast used: None. Oral contrast used: None. FINDINGS: Brain: Extra-axial spaces: No abnormal extra-axial fluid collections. Ventricular system: Within normal limits Cerebral parenchyma: No acute intraparenchymal hemorrhage or mass effect. Mild periventricular low attenuation as well as some low-attenuation in the deep white matter, most likely chronic microangio aissatou. . The maravilla-white junction is well differentiated. Cerebellum: Unremarkable. Mass effect: No evidence of midline shift. Intracranial vasculature: unremarkable Soft tissues: Normal. Calvarium/osseous structures: No depressed skull fracture. Paranasal sinuses and mastoid air cells: Mild scattered paranasal sinus disease. Visualized orbits: Orbital contents are intact. IMPRESSION: No acute intracranial process. Chronic microangiopathy.
[2023-08-30] MEDS: hydrALAZINE HCL 20 MG/ML 1 ML VIAL IVP STA ×2 (12:33→13:31)
[2023-08-30] MEDS: MAGNESIUM OXIDE 400 MG TAB PO STA (12:33)
--- NOTE | 2023-08-30 12:42 | XR ---
EXAMINATION TYPE: XR chest 2V DATE OF EXAM: 08/30/2023 12:20 PM CLINICAL INDICATION:Female, 78 years old with history of Weakness; [facility] COMPARISON: Chest radiographs 03/19/2023 TECHNIQUE: XR chest 2V Frontal and lateral views of the chest. FINDINGS: Lungs/Pleura: There is no evidence of pleural effusion, focal consolidation, or pneumothorax. Pulmonary vascularity: Unremarkable. Heart/mediastinum: The heart is enlarged. Atherosclerotic calcifications are seen in the aorta. Musculoskeletal: No acute osseous pathology. Other findings: None Lines/Tubes: None. IMPRESSION: No acute cardiopulmonary disease/process.
[2023-08-30 13:08] LABS: Appearance,Urine Clear (Clear); Bilirubin,Urine Negative (Negative); Blood,Urine Negative (Negative); Color,Urine Colorless; Glucose,Urine (UA) Negative (Negative); Ketones,Urine Negative (Negative); Leukocyte Esterase,Urine Negative (Negative); Nitrite,Urine Negative (Negative); Protein,Urine Negative (Negative); Specific Gravity,Urine 1.006 (1.001-1.035); Urobilinogen,Urine <2.0 mg/dL (<2.0)
[2023-08-30] MEDS: KETOROLAC 15 MG/ML 1 ML VIAL IVP STA (13:31)
--- NOTE | 2023-08-30 15:48 | CT ---
EXAMINATION TYPE: CT cervical spine wo con DATE OF EXAM: 08/30/2023 COMPARISON: None HISTORY: weakness in extremities. CT DLP: 217.4 mGycm Automated exposure control for dose reduction was used. TECHNIQUE: CT scan of the cervical spine is obtained without contrast, axial images are obtained, sa gittal and coronal reformatted images are also reviewed. Findings: The craniovertebral junction relationships and prevertebral soft tissues are normal. The cervical vertebral segments are normal in height and alignment and there is no fracture or sublux ation. There is loss of the normal cervical lordosis there is in fact mild cervical kyphosis. There is moderate to marked degenerative disc disease throughout the cervical spine where there is mo derate to marked disc space narrowing and spondylosis. There is mild facet osteoarthritis and moderate to marked osteoarthritic change of the uncovertebral joints throughout the cervical spine greatest in the lower cervical spine at C4-5, C5-6 and C6-7 leve ls. Secondary to a posterior hypertrophic spurring there is mild to moderate compromise of the cervical c anal at C3-4, C4-5 and C5-6 levels. There is multilevel bony neural foraminal encroachment as follows ; mild at C2-3 on the left, severe at C3-4 bilaterally, severe at C4-5 bilaterally, and mild at C6-7 on the left. IMPRESSION: 1. Moderate to marked degenerative disease throughout the cervical region. 2. Cervical kyphosis. 3. Mild to moderate compromise of the cervical canal at C3-4, C4-5 and C5-6 level secondary to repairer kiln car ior hypertrophic spurring. 4. Multilevel neural foraminal encroachment as described above.
--- NOTE | 2023-08-30 15:58 | CT ---
EXAMINATION TYPE: CT lumbar spine wo con DATE OF EXAM: 08/30/2023 3:37 PM COMPARISON: None HISTORY: weakness in extremities. CT DLP: 842.5 mGycm Automated exposure control for dose reduction was used. Unenhanced CT of the lumbar spine was performed. Bone and soft tissue window settings are submitted as well as coronal and sagittal reconstructions. Findings: There is moderate dextroscoliosis of the lumbar spine. Lumbar vertebral segments are normal in height and alignment there is no fracture or subluxation. There is mild lumbar kyphosis and loss of the nor mal lumbar lordosis. There is marked degenerative disc disease from T12 through S1 there is marked disc space narrowing, s pondylosis and vacuum phenomena. There is near complete fusion at the L3-4 level. Secondary to marked facet hypertrophy there is mild spinal stenosis at the L1-2 and L4-5 levels level , and moderate to severe spinal stenosis at the L2-3 and L3-4 levels The sacrum and SI joints are normal. There is moderate to severe bony neural foraminal encroachment at L4-5 and L5-S1 level on the right a nd moderate to severe bony encroachment at the L2-3 and L5-S1 levels on the left. IMPRESSION: 1. Severe degenerative disc disease throughout the lumbar spine with moderate dextroscoliosis of the lumbar spine. 2. Multilevel spinal stenosis and neural foraminal stenosis secondary to bony encroachment from marke d hypertrophy of the facet joints. 3. Incidental note is made of an IVC filter
[2023-08-30] MEDS ORDERED: NALOXONE 0.4 MG/ML 1 ML VIAL IV PRN (16:05)
[2023-08-30] MEDS ORDERED: ARTIFICIAL TEARS-HYPROMELLOSE DROPS 15 ML BTL BOTH EYES PRN (16:07)
--- NOTE | 2023-08-30 16:07 | XR ---
Thoracic spine HISTORY: Weakness and paresthesias in the extremities. COMPARISON: None TECHNIQUE: 3 views of the thoracic spine were obtained. FINDINGS: There is mild S-shaped scoliosis of thoracolumbar spine. On the lateral projection, the thoracic vertebral segments are normal in height and alignment there i s no fracture. There is mild degenerative disease at multiple levels in the lower thoracic spine. The paraspinal soft tissues unremarkable. IMPRESSION: Mild degenerative changes but no acute trauma.
[2023-08-30] MEDS: hydrALAZINE HCL 20 MG/ML 1 ML VIAL IVP PRN (18:14)
[2023-08-30] MEDS: DEXAMETHASONE SOD PHOSPHATE 10 MG/ML 1 ML VIAL IVP STA (18:19)
[2023-08-30] MEDS: SYMBICORT 160-4.5 MCG INHALER INHALATION SCH (19:45)
[2023-08-30] MEDS: ACETAMINOPHEN TAB 325 MG TAB PO PRN (20:46)
[2023-08-30] MEDS: MIRTAZAPINE 15 MG TAB PO SCH (20:46)
[2023-08-30] MEDS: LOSARTAN 50 MG TAB PO SCH (20:46)
[2023-08-30] MEDS: PRAZOSIN 1 MG CAP PO SCH (20:46)
[2023-08-30] MEDS: LATANOPROST 0.005% OPHTH DROPS 2.5 ML BTL BOTH EYES SCH (20:47)
[2023-08-31] MEDS: PANTOPRAZOLE 40 MG TABLET PO SCH (08:39)
[2023-08-31] MEDS: ASCORBIC ACID 500 MG TAB PO SCH (08:39)
[2023-08-31] MEDS: CHOLECALCIFEROL 125 MCG (5000 IU) TABLET PO SCH (08:39)
[2023-08-31] MEDS: ASPIRIN 81 MG PO SCH (08:40)
[2023-08-31] MEDS: POTASSIUM CHLORIDE ER 20 MEQ TAB.ER PO SCH (08:40)
[2023-08-31] MEDS: FOLIC ACID 1 MG TAB PO SCH (08:40)
--- NOTE | 2023-08-31 10:00 | P.CNOR ---
History of Present Illness - HPI Consult date: 08/31/23 Consult reason: back pain, neck pain, other (Weakness) History of present illness: History of Presenting Illness Patient is a pleasant 78-year-old female who presented to the ER due to increase of generalized weakness and falls. Patient is describing an aching and burning cervical pain that has been progressing over the last week. She states she had shakiness sensation throughout her body over the past few days that has somewhat improved at this time. In addition to her cervical pain, she reports that it radiates into her bilateral upper extremities associated with numbness. She s tates that her lower extremities feel weak and gave out on her a few days ago. She states she has had multiple falls. Patient does live alone with family that checks in on her daily. It is documented that medications have been reviewed and attempts to readjust over the last several months with no change in symptoms. Patient does have a significant complex past medical history. No orthopedic surgical history. Patient seen and examined this morning. Patient is resting comfortably in bed. Patient reports her pain is currently managed. Patient does demonstrate weakness of the bilateral upper and lower extremities. She does report numbness into the upper extremities. Discussed with patient that we will obtain a cervical MRI for further evaluation. Patient verbalizes understanding. CT of the cervical spine taken on 08/30/2023 demonstrates moderate to marked degenerative disease throughout the cervical region. Cervical kyphosis is demonstrated. Mild to moderate compromise of the cervical canal at C3-C4, C4- C5, and C5-C6 secondary to posterior hypertrophic spurring. There is multilevel neuroforaminal encroachment. CT of the lumbar spine taken on 08/30/2023 demonstrates severe degenerative disc disease throughout the lumbar spine with moderate dextroconvex scoliosis. There is moderate to severe bony neuroforaminal encroachment at L4-L5 and L5-S1 on the right, moderate to severe bony encroachment at the L2-L3 and L5-S1 levels on the left. X-ray of the thoracic spine taken on 08/30/2023 demonstrates mild degenerative changes but no acute trauma. Review of Systems Pertinent positives and negatives as discussed in HPI, a complete review of syst ems was performed and all other systems are negative. Physical Examination General: The patient is awake and alert, in no acute distress Skin: Skin is warm and dry with no obvious rashes or lesions. Eye: Pupils are equal, round and reactive to light, extra-ocular movements are intact; there is normal conjunctiva bilaterally. Neck: The neck is supple, there is mild tenderness and limited range of motion due to pain and stiffness. Cardiovascular: There is a regular rate and rhythm. No murmur, rub or gallop is appreciated. Respiratory: Respirations are non-labored, breath sounds are equal. Gastrointestinal: Soft, non-distended, non-tender abdomen. Back: There is no tenderness to palpation in the midline, paralumbar, parathoracic or buttocks region. There is no obvious deformity. Musculoskeletal: ROM limited secondary to pain and stiffness. Shoulder abduction 4/5, elbow flexors 4/5, wrist dorsiflexors 4/5. finger abductor 4/5, contracts attorney 4/5, hip flexor 4/5, knee flexor 4/5, ankle dorsiflexor 3/5, ankle plantarflexion 3/5 and extensor hallucis 3/5. Neurological: CN 2-12 intact. There are no obvious motor or sensory deficits. Movement and coordination equal and intact. Sensory exam to light touch intact C5-T1 and intact from L2-S1. Reflexes 3/4 in bilateral upper and lower extremities. Positive bilateral Hoffmans. Psychiatric: Cooperative, appropriate mood & affect, normal judgment. Assessment and Plan Generalized weakness Recent falls Cervical kyphosis Moderate cervical stenosis C3-C6 Multilevel cervical neuroforaminal encroachment Dextroconvex scoliosis Moderate to severe right neuroforaminal stenosis L4-S1 Moderate to severe left neuroforaminal stenosis L2L3, L5-S1 Bilateral upper and lower radiculopathy with weakness Complex medical comorbidities At this time we we will order a cervical MRI for further evaluation. 2. Appreciate medical management 3. Pain management -continue with conservative management at this time. Order will be placed for IV steroids and Gabapentin 4. GI prophylaxis -per medicine 5. DVT prophylaxis -mechanical 6. PT/OT - weightbearing as tolerated with a walker as needed. 7. Appreciate consult I reviewed and discussed this case with my attending Dr. Wilson, whom has reviewed this chart and films and is in agreement with assessment and plan of care as outlined above. I have personally seen and examined the patient, performed the documentation and the assessment and plan as written. Number of minutes spent on the visit: 20m. Past Medical History Past Medical History: Atrial Fibrillation, Asthma, COPD, GERD/Reflux, GI Bleed, Hyperlipidemia, Hypertension, Osteoarthritis (OA), Pneumonia, Vascular Disorder Additional Past Medical History / Comment(s): [place], Bronchitis, gastric ulcer, diverticular disease, lower GI bleed/AV malformation with ablation, benign colon polyp, borderline hyperlipidemia, arthritis mostly in back, slight bilateral glaucoma, varicosities. History of Any Multi-Drug Resistant Organisms: None Reported Past Surgical History: Adenoidectomy, Appendectomy, Heart Catheterization, Hysterectomy, Tonsillectomy, Tubal Ligation Additional Past Surgical History / Comment(s): Colonoscopy/benign polypectomy/AV malformation ablation, bilateral cataract removals, watchmen procedure Past Anesthesia/Blood Transfusion Reactions: No Reported Reaction Additional Past Anesthesia/Blood Transfusion Reaction / Comm: never recieved blood before. Past Psychological History: No Psychological Hx Reported Smoking Status: Never smoker Past Alcohol Use History: None Reported Past Drug Use History: None Reported - Past Family History Father Family Medical History: COPD Additional Family Medical History / Comment(s): EMPHYSEMA Mother Family Medical History: Osteoarthritis (OA) Additional Family Medical History / Comment(s): EMPHYSEMA, BOWEL OBSTRUCTION/COLOSTOMY Medications and Allergies Home Medications Medication Instructions Recorded Confirmed Type Pravastatin Sodium [Pravachol] 40 mg PO DAILY 07/20/15 08/30/23 History Latanoprost [Xalatan 0.005%] 1 drop BOTH EYES HS 10/15/16 08/30/23 History nadoloL [Nadolol] 40 mg PO DAILY 10/15/16 08/30/23 History Budesonide/Formoterol Fumarate 1 puff INHALATION RT-BID 08/11/17 08/30/23 History [Symbicort 160-4.5 Mcg Inhaler] Omeprazole 20 mg PO DAILY 06/25/20 08/30/23 History Aspirin 81 mg PO DAILY tab 11/26/22 08/30/23 Rx Cyanocobalamin [Vitamin B-12] 500 mcg PO DAILY #30 tab 11/26/22 08/30/23 Rx Ascorbic Acid [Vitamin C] 1,000 mg PO DAILY 08/30/23 08/30/23 History Carboxymethylcell/Glycerin/Pf 1 drop BOTH EYES QID PRN 08/30/23 08/30/23 History [Refresh Relieva Pf 0.5-1% Drop] Cholecalciferol [Vitamin D3 (125 125 mcg PO DAILY 08/30/23 08/30/23 History Mcg = 5000 Iu)] Folic Acid 0.8 mg PO DAILY 08/30/23 08/30/23 History Losartan Potassium [Cozaar] 100 mg PO HS 08/30/23 08/30/23 History Mirtazapine [Remeron] 7.5 mg PO HS 08/30/23 08/30/23 History Potassium Chloride [Klor-Con M10] 20 meq PO DAILY 08/30/23 08/30/23 History Prazosin [Minipress] 1 mg PO TID 08/30/23 08/30/23 History Pyridoxine [Vitamin B-6] 100 mg PO DAILY 08/30/23 08/30/23 History Allergies Allergy/AdvReac Type Severity Reaction Status Date / Time No Known Allergies Allergy Verified 08/30/23 11:10 Results - Labs Labs: Abnormal Lab Results - Last 24 Hours (Table) 08/30/23 08/30/23 Range/Units 11:25 11:25 RBC 3.62 L (3.80-5.40) m/uL MCV 106.8 H (80.0-100.0) fL Carbon Dioxide 33 H (22-30) mmol/L BUN 24 H (7-17) mg/dL Glucose 113 H (74-99) mg/dL Magnesium 1.5 L (1.6-2.3) mg/dL Alkaline Phosphatase 131 H (38-126) U/L Total Protein 6.2 L (6.3-8.2) g/dL Albumin 3.3 L (3.5-5.0) g/dL H & H 08/30/23 Range/Units 11:25 Hgb 12.1 (11.4-16.0) gm/dL Hct 38.7 (34.0-46.0) % Coagulation 08/30/23 Range/Units 11:25 INR 1.0 (<1.2) Result Diagrams: 08/30/23 11:25 08/30/23 11:25
[2023-08-31] MEDS: PRAVASTATIN SODIUM 40 MG TAB PO SCH (10:21)
[2023-08-31] MEDS: PYRIDOXINE 50 MG TAB PO SCH (11:19)
--- NOTE | 2023-08-31 13:10 | MR ---
EXAMINATION TYPE: MR cervical spine wo con DATE OF EXAM: 08/31/2023 12:25 PM CLINICAL INDICATION:Female, 78 years old with history of Cervical pain and unsteady gait; PHH, Neck p ain, unsteady gait. COMPARISON: 08/30/2023. TECHNIQUE: Multi planar, multi sequence imaging was performed utilizing: T1-weighted, T2-weighted, an d turbo inversion recovery imaging of the cervical spine. IV Contrast: cc (none if empty) FINDINGS: Alignment: The cervical vertebral bodies have preserved heights. There is straightening of the alignm ent with increased kyphosis. Bones: Scattered Modic endplate changes with osteophytes and disc space narrowing. Multilevel degener ative disc disease is noted and most pronounced at the C3-C7 vertebral levels. Cord: High T2 spinal cord signal at the level of C3-C4 posteriorly The spinal cord is unremarkable wi th regards to their signal intensity and morphology. Discs: Intervertebral disc signal is maintained. C2-C3: No significant disc pathology. The spinal canal is patent. Bilateral facet and uncovertebral joint arthropathy are present with mild to moderate left and mild right neural foraminal stenosis. C3-C4: A disc osteophyte complex is present with severe spinal canal stenosis. Bilateral facet and u ncovertebral joint arthropathy are present with severe bilateral neural foraminal stenosis. C4-C5: A disc osteophyte complex is present with severe spinal canal stenosis. Bilateral facet and u ncovertebral joint arthropathy are present with severe bilateral neural foraminal stenosis. C5-C6: A disc osteophyte complex is present with severe spinal canal stenosis. Bilateral facet and u ncovertebral joint arthropathy are present with moderate bilateral neural foraminal stenosis. C6-C7: A disc osteophyte complex is present with severe spinal canal stenosis. Bilateral facet and u ncovertebral joint arthropathy are present with severe bilateral neural foraminal stenosis. C7-T1: A disc osteophyte complex is present with mild spinal canal stenosis. Bilateral facet and unc overtebral joint arthropathy are present with mild bilateral neural foraminal stenosis. Other: None. IMPRESSION: Severe degeneration changes with severe spinal canal stenosis from C3-C4 through C6-C7 with severe ne ural foraminal stenosis bilaterally. Evidence of myelomalacia at the level of C3-C4.
[2023-08-31] MEDS: DEXAMETHASONE SOD PHOSPHATE 4 MG/ML 1 ML VIAL IVP SCH (14:49)
[2023-08-31] MEDS: ENOXAPARIN 40 MG/0.4 ML SYRINGE SQ SCH (15:00)
[2023-08-31] MEDS: PRAMIPEXOLE 0.125 MG TAB PO SCH (15:23)
[2023-08-31] MEDS: GABAPENTIN 300 MG CAP PO SCH (15:23)
--- NOTE | 2023-08-31 16:02 | P.HPIM ---
History of Present Illness H&P Date: 08/31/23 Chief Complaint: Weakness in all 4 limbs very pleasant 78-year-old patient of Dr. Zbigniew Gary. Chronic stable medical conditions include GERD, hyperlipidemia, hypertension, osteoarthritis, paroxysmal atrial fibrillation, varicose veins, diverticulosis. very hard of hearing and does lipreading. watchman procedure done by Dr. Concepcion at [facility] on 05/2020.. July 2022. [With altered mental status.] MRI/EEG/neurological work was unremarkable. Carotid Doppler showed 50-69% on the left ICA. Nonvisualization of the right vertebral artery. Patient was placed on aspirin and was to follow- up with Dr. Mota from vascular.SLUMS-examination suggestive of dementia.-Not severe. Patient has chronic left eye ptosis and left nasolabial weakening. Patient normally able to get about. Yesterday morning patient felt some pain in the neck. Let it go. Later she went to lie down. When she tried to get up she really could not get up and fell down. She had to crawl. [place] weak in all the limbs. She called up her daughter. Denies any change in vision no change in speech. No involvement of bowel or bladder. More weak on the right side. Still not able to get out of bed. Review of systems: GEN.: Tired EYES: None HEENT: Very hard of hearing NECK: None RESPIRATORY: None CARDIOVASCULAR: None GASTROINTESTINAL: None GENITOURINARY: None MUSCULOSKELETAL: Joint pains LYMPHATICS: None HEMATOLOGICAL: None PSYCHIATRY: None NEUROLOGICAL: As above Past medical history to include: Asthma, GERD, hyperlipidemia, hypertension, osteoarthritis, paroxysmal atrial fibrillation, varicose veins, stomach ulcer, diverticulitis. Esophagitis, gastritis, internal/external hemorrhoids, watchman procedure, esophagitis, internal hemorrhoids. Right carotid 50-69% stenosis Social history: Does not smoke or drink Cold. Lives alone. Physical examination: VITAL SIGNS: 98.5, 88, 15, 171 x 91, 94% room air GENERAL: Laying in bed a bit anxious EYES: Pupils equal. Conjunctiva pale. HEENT: External appearance of nose and ears normal, oral cavity grossly normal. Very hard of hearing NECK: JVD not raised; masses not palpable. HEART: First and second heart sounds are normal; no edema. LUNGS: Respiratory rate normal, decreased breaths sounds. ABDOMEN: Soft, nontender, liver spleen not palpable, no masses palpable. PSYCH: Able to hold on to a regular conversation. Slight forgetfulness. MUSCULAR skeletal:: Evidence of OA especially in the hands NEUROLOGICAL: Cranial nerves grossly intact; no facial asymmetry, decreased power in both upper extremities. 4/5. Lower extremity power 4/5. Hyperreflexive in all 4 limbs. Bilateral plantars upgoing LYMPHATICS: No lymph nodes palpable in the axilla and neck INVESTIGATIONS, reviewed in the clinical context: August 30, 2023: White count 9.4 hemoglobin 12.1 platelets 219 sodium 140 potassium 4.2 BUN 24 creatinine 0.82 Troponin I less than 0.012 UA: Negative CT brain without contrast: Unremarkable Cervical spine CT: Mild DJD changes. Compromise of the cervical canal C3-C4, C4-C5, C5-6 6. Multiple foramina encroachment levels. Assessment and plan: -Episode of patient having some neck pain earlier and later on not able to move her lips. Rather weak. Not able to get up at the baseline normally ambulatory. Appears to be cervical spine encroaching the spinal cord. 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 Wilson from orthopedic spine.-He will follow-up -Mild cognitive impairment. [Previous SLUMS examination, was given by the speech therapist. 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 Nonvisualization of the right vertebral artery Baby aspirin. Follow-up with Dr. Mota outpatient -Internal hemorrhoids. - moderate persistent asthma, continue with Symbicort -Chronic kidney disease, stage 2, likely nephrosclerosis -COPD in secondhand smoke exposure Bronchodilators -GERD, on PPI -Hyperlipidemia, on Pravachol -Essential hypertension, verapamil ER, Univasc, nadolol -Primary osteoarthritis, use Tylenol when necessary -Paroxysmal atrial fibrillation currently in sinus rhythm -Chronic Esophagitis and gastritis., On PPI -Very hard of hearing Hearing aids Patient will need likely surgical intervention. I did speak to Dr. Wilson from orthopedic spine. MRI spine ordered stat. Prophylactic Lovenox ordered Given the complexity and severity of patient's condition expect the patient to b e in the hospital at least for 2 overnights Past Medical History Past Medical History: Atrial Fibrillation, Asthma, COPD, GERD/Reflux, GI Bleed, Hyperlipidemia, Hypertension, Osteoarthritis (OA), Pneumonia, Vascular Disorder Additional Past Medical History / Comment(s): [place], Bronchitis, gastric ulcer, diverticular disease, lower GI bleed/AV malformation with ablation, benign colon polyp, borderline hyperlipidemia, arthritis mostly in back, slight bilateral glaucoma, varicosities. History of Any Multi-Drug Resistant Organisms: None Reported Past Surgical History: Adenoidectomy, Appendectomy, Heart Catheterization, Hysterectomy, Tonsillectomy, Tubal Ligation Additional Past Surgical History / Comment(s): Colonoscopy/benign polypectomy/AV malformation ablation, bilateral cataract removals, watchmen procedure Past Anesthesia/Blood Transfusion Reactions: No Reported Reaction Additional Past Anesthesia/Blood Transfusion Reaction / Comment(s): never recieved blood before. Past Psychological History: No Psychological Hx Reported Smoking Status: Never smoker Past Alcohol Use History: None Reported Past Drug Use History: None Reported - Past Family History Father Family Medical History: COPD Additional Family Medical History / Comment(s): EMPHYSEMA Mother Family Medical History: Osteoarthritis (OA) Additional Family Medical History / Comment(s): EMPHYSEMA, BOWEL OBSTRUCTION/COLOSTOMY Medications and Allergies Home Medications Medication Instructions Recorded Confirmed Type Pravastatin Sodium [Pravachol] 40 mg PO DAILY 07/20/15 08/30/23 History Latanoprost [Xalatan 0.005%] 1 drop BOTH EYES HS 10/15/16 08/30/23 History nadoloL [Nadolol] 40 mg PO DAILY 10/15/16 08/30/23 History Budesonide/Formoterol Fumarate 1 puff INHALATION RT-BID 08/11/17 08/30/23 History [Symbicort 160-4.5 Mcg Inhaler] Omeprazole 20 mg PO DAILY 06/25/20 08/30/23 History Aspirin 81 mg PO DAILY tab 11/26/22 08/30/23 Rx Cyanocobalamin [Vitamin B-12] 500 mcg PO DAILY #30 tab 11/26/22 08/30/23 Rx Ascorbic Acid [Vitamin C] 1,000 mg PO DAILY 08/30/23 08/30/23 History Carboxymethylcell/Glycerin/Pf 1 drop BOTH EYES QID PRN 08/30/23 08/30/23 History [Refresh Relieva Pf 0.5-1% Drop] Cholecalciferol [Vitamin D3 (125 125 mcg PO DAILY 08/30/23 08/30/23 History Mcg = 5000 Iu)] Folic Acid 0.8 mg PO DAILY 08/30/23 08/30/23 History Losartan Potassium [Cozaar] 100 mg PO HS 08/30/23 08/30/23 History Mirtazapine [Remeron] 7.5 mg PO HS 08/30/23 08/30/23 History Potassium Chloride [Klor-Con M10] 20 meq PO DAILY 08/30/23 08/30/23 History Prazosin [Minipress] 1 mg PO TID 08/30/23 08/30/23 History Pyridoxine [Vitamin B-6] 100 mg PO DAILY 08/30/23 08/30/23 History Allergies Allergy/AdvReac Type Severity Reaction Status Date / Time No Known Allergies Allergy Verified 08/30/23 11:10 Physical Exam Vitals: Vital Signs Temp Pulse Pulse Resp BP BP BP 08/31/23 07:44 08/31/23 07:00 98.5 F 88 15 171/91 08/31/23 03:12 98.5 F 91 18 172/84 08/30/23 19:33 98.0 F 101 H 18 179/81 08/30/23 18:52 98.3 F 102 H 14 183/83 08/30/23 13:55 163/83 08/30/23 13:02 88 18 190/96 Pulse Ox 08/31/23 07:44 97 08/31/23 07:00 94 L 08/31/23 03:12 95 08/30/23 19:33 93 L 08/30/23 18:52 95 08/30/23 13:55 08/30/23 13:02 96 Intake and Output 08/30/23 08/31/23 08/31/23 22:59 06:59 14:59 Other: Voiding Method External Catheter # Voids 2 4 Weight 49.895 kg Results CBC & Chem 7: 08/30/23 11:25 08/30/23 11:25 Labs: Abnormal Lab Results - Last 24 Hours (Table) 08/30/23 Range/Units 11:25 Carbon Dioxide 33 H (22-30) mmol/L BUN 24 H (7-17) mg/dL Glucose 113 H (74-99) mg/dL Magnesium 1.5 L (1.6-2.3) mg/dL Alkaline Phosphatase 131 H (38-126) U/L Total Protein 6.2 L (6.3-8.2) g/dL Albumin 3.3 L (3.5-5.0) g/dL
[2023-08-31] MEDS: CYANOCOBALAMIN 500 MCG TAB PO SCH (17:32)
[2023-08-31] MEDS: PRAZOSIN 1 MG CAP PO ONE (17:32)
[2023-08-31] MEDS: CHLORTHALIDONE 25 MG TAB PO SCH (17:32)
[2023-08-31] MEDS: PRAZOSIN 1 MG CAP PO SCH (20:09)
--- NOTE | 2023-09-01 07:21 | P.PN ---
Progress Note - Text Progress Note Date: 09/01/23 Spine Surgery Clinical and Risk Review Nancy Naqvi is a 78 yo female presenting for evaluation of BUE and LE weakness, acute inability to ambulate, neck pain. It was my pleasure to have seen and examined Nancy Naqvi. In our visit today we have had a chance to go over subjective complaints, physical examination findings and treatments including the natural course history without intervention and various interventional options. The patients imaging demonstrates SEVERE CERVICAL STENOSIS WITH MYELOMALACIA C3- 7 WITH SEVERE DEGENERATIVE CHANGES, SPONDYLOSIS AND FORAMINAL STENOSIS AT ALL LEVELS. THERE IS KYPHOTIC DEFORMITY DUE TO THE COLLAPSE OF DISC AND OSTEOPHYTE FORMATION ANTERIOR AND POSTERIORLY. NO FRACTURES NOTED. C0-1 AND C1-2 STABLE. On physical exam, Nancy Naqvi demonstrates BUE AND BLE WEAKNESS, ACUTE CHANGE FOR PATIENT. 3/4 DTR ALL, +BENAVIDES'S BL. 4-/5 STRENGTH IN UE AND LE WITH 3/5 IN HF AND KF/KE B/L WELL IT SUPPORT TECHNICIAN STRENGTH BL. +DISTAL PULSES. TTP POSTERIOR NECK MIDLINE. I have explained to the patient that as their condition progresses it will cause further neurological deficits and eventual paralysis. Based on the patients imaging, physical exam, and the rapid progression and disabling nature of their symptoms, at this time I recommend surgery in the form or a: C2-T2 DECOMPRESSION AND FUSION. I discussed the risk and benefits of this procedure at length with Nancy Naqvi. The patient agreed to considered pursuing the procedure abovementioned. Prior to surgery, she should follow up with her PCP (Cardio, ID, IM etc) for clearance. Questions were invited and answered, and the patient wishes to proceed as outlined below. Currently, I am recommendin. C2-T2 DECOMPRESSION AND FUSION 2. MEDICAL CLEARANCE APPRECIATED 3. Review of surgical risks and benefits as well as an educational packet on the proposed surgical procedure. Risks: All surgical procedures come with inherent risks, including those related to positioning, anesthesia, intraoperative findings, and postoperative complications. It is important to understand that surgery does not come with any guarantee of a successful outcome as complications and adverse events are always possible. The patient was given a handout in office today discussing the surgical procedure and risks associated with the intervention, both of which were discussed with the patient. These risks include but are not limited to the f ollowing: * Experiencing same, different or even worse symptoms in back, neck, arms, or legs compared to before surgery. * Requiring further surgery or other forms of treatment presently or at some time in the future at same or other levels of the intended spine surgery. * On an extreme but fortunately relatively rare basis severe complication such as blindness, stroke, heart attack, temporary and/or permanent nerve injury, paralysis, coma, or may occur, sometimes without known explanation. * Surgical complications may include but are not limited to risk of infection, fluid accumulation in the surgical dissection site, including a seroma or hematoma, that requires additional surgery, wound drainage, bleeding, new numbness or weakness, vision changes/loss, spinal fluid leakage, non-healing and/or infected incision, headaches, difficulty or inability to swallow, hoarseness, hemopneumothorax, pneumothorax, impotence, retrograde ejaculation, vaginal dryness; injury to nerves, spinal cord, blood vessels, lymphatics or other vital organs (i.e., bowel injury, injury to the great vessels); heterotopic bone formation; complications related to the hardware such as screws, rods, cages including misplaced hardware, device failure, instrumentation at the wrong spine level, hardware fracture/breakage, or hardware loosening; vertebral failure of the spinal column above or below the newly placed hardware; retained surgical instrumentations or devices and the need for further surgery. * Medical risks of the planned spine surgery include but are not limited to generalized Infections to the whole body or local areas outside of the surgical site (sepsis), heart attack, bleeding, anaphylaxis, meningitis, seizure, epilepsy, hearing loss, burn redding, laceration of the head or other areas of the body, bruising, hypersensitivity of the skin, bladder over distension; allergic reaction; shoulder injury related to positioning; fat, blood and air clots to other areas of the body like heart, lungs, brain; failure of internal organs such as lungs, kidneys, liver and excessive bleeding. If blood transfusions are necessary, note that transfusions may cause intolerance reactions such as anaphylaxis or other complex reactions. * Despite best efforts, the results of spine surgery might not heal in terms of bone, soft tissues such as skin, fascia, ligaments, and joints. Additionally, in order to achieve best possible results, spine surgery may be carried out beyond the initially planned levels and involve decompression, fusion including insertion of hardware at levels other than the original intended area of surgical interest change some portions of the procedure in order to ensure the best possible outcomes. * With spine surgery and spinal fusion, there are different off label uses of instrumentation (devices, implants and hardware) as well as biological substances (bone morphogenic proteins, demineralized bone matrix) as well as using extra bone from allograft sources (i.e. cadaver bone) or autograft (iliac crest bone, ribs, or the spine itself). The patient has been given information about these practices and their inherent risks and benefits. The patient has had a chance to review all the listed information, has been given print outs detailing this information, and has had all his/her questions answered to their satisfaction. It was my pleasure to have seen and examined Nancy Naqvi. In our visit today we have had a chance to go over my understanding of our patient's current condition, the natural course history without intervention and various interventional options. Questions were invited and answered, and the patient wishes to proceed as outlined above. I have seen and examined the patient for 25 minutes and we have spent more than 50% of the time in repeat and detailed counseling about the patient's condition, its natural course history with out and as much as can be predicted with surgery and re-review of various surgical treatment options. In conclusion, Nancy Naqvi and requested we proceed with the above suggested surgery and are willing to accept risks and limitations of the suggested surgery as nature of the disease process and our best attempts at treatment for the condition. Thank you again for allowing us to be part of your patient's care. Please don't hesitate to contact me if you have any further questions. Signed and authenticated by: Amando Palacio [facility] [address] [place] [address] [address] [address]
[2023-09-01] MEDS ORDERED: MIDAZOLAM 2 MG/2 ML VIAL ONE (08:01)
[2023-09-01] MEDS ORDERED: PHENYLEPHRINE 10 MG/ML VIAL ONE (08:01)
[2023-09-01] MEDS ORDERED: fentaNYL (PF) 50 MCG/ML 2 ML AMP ONE (08:01)
[2023-09-01] MEDS ORDERED: ROCURONIUM 10 MG/ML (5 ML VIAL) IV ONE (08:01)
[2023-09-01] MEDS ORDERED: PROPOFOL 10 MG/ML 20 ML VIAL IV ONE (08:01)
[2023-09-01] MEDS ORDERED: NEOSTIGMINE 1 MG/ML 10 ML VIAL ONE (08:01)
[2023-09-01] MEDS ORDERED: ONDANSETRON 4 MG/2 ML VIAL ONE (08:01)
[2023-09-01] MEDS ORDERED: KETAMINE HCL IN 0.9 % NACL 50 MG/5 ML SYRINGE ONE (08:01)
[2023-09-01] MEDS ORDERED: TRANEXAMIC 1,000 MG/100ML-NACL PREMIX BAG ONE (08:01)
[2023-09-01] MEDS ORDERED: GLYCOPYRROLATE 0.2 MG/ML 2 ML VIAL ONE (08:01)
[2023-09-01] MEDS: IV FLUID CONTINUATION 1,000 ML IV ONE (08:05)
[2023-09-01] MEDS: GENTAMICIN 80 MG in SODIUM CHLORIDE 0.9% IRRIGATIO 3,000 ML IRRIGATION ONE (08:49)
[2023-09-01] MEDS: ceFAZolin 3,000 MG in SODIUM CHLORIDE 0.9% IRRIGATIO 3,000 ML IRRIGATION ONE (08:49)
[2023-09-01] MEDS: THROMBIN (BOVINE) 5,000 UNIT VIAL TOPICAL ONE (08:50)
--- NOTE | 2023-09-01 09:58 | XR ---
EXAMINATION TYPE: XR cervical spine limited, FL guidance operating room DATE OF EXAM: 09/01/2023 Comparison: None Clinical History: 78-year-old female CERVICAL DECOMPRESSION Findings: Posterior cervical fusion and decompression. 20 sec fl .1850 Gycm2 DAP 4 images are submitted. Impression: Intraoperative fluoroscopy as above.
[2023-09-01] MEDS: LACTATED RINGERS 1,000 ML IV ONE ×2 (10:08→10:24)
[2023-09-01] MEDS: VANCOMYCIN 1,000 MG VIAL MISCELLANE ONE (10:10)
--- NOTE | 2023-09-01 10:31 | P.CNNES ---
History of Present Illness Consult date: 08/31/23 Requesting physician: Kenn Beal Reason for Consult: Extremity weakness History of Present Illness: Patient is a 78-year-old female came to the hospital by ambulance yesterday at 10:11 AM for acute onset of weakness in the legs and arm paresthesias. Patient states that yesterday she woke up, tried to get out of bed, could not stand, could not walk. She took a step and started walking like a duck and almost fell. She noticed fingers and hands were numb. Her legs were strong, but she could not walk or stand on her legs. Due to these reasons, she called the ambulance and was brought to the hospital. Patient states that she has neck pain since yesterday, rates 11/29. Prior to that she never had any neck pain. She does have chronic low back pain. As per EMS flowsheet, when they arrived, patient was sitting in the chair, in her upstairs bedroom. Daughter stated she was in the shower, and had to get out early because she started having leg weakness. Per daughter patient has dementia and has history of back pain due to needing several discs replaced but she does not want the surgery. Patient extricated from the upstairs via stair chair. Patient's vitals at the scene was blood pressure 212/108, which was subsequent 211/113, pulse rate 87, respiration 18, saturation 94%, blood sugar 1 60. Temperature 98.1. Blood test shows normal CBC with elevated MCV 106.8. PT PTT normal, elect rolytes renal functions, hepatic panel are normal. Troponin negative. UA negative. CT head revealed no acute intracranial process. Chronic microangiopathy. I personally reviewed CT head agree with the findings. Chest x-ray is normal. CT of the cervical spine showed moderate to marked degenerative disease throughout the cervical spine. Cervical kyphosis. Mild to moderate compromise of the c ervical canal at C3-4, C4-5 and C5-6 level secondary to posterior hypertrophic spurring. Multilevel neural foraminal encroachment. EKG showed sinus rhythm with first-degree AV block. Patient denies any problem with bowel or bladder control. She does have urgency for bowel movement but no incontinence. No urinary incontinence. Patient currently on Pravachol 40 mg, nadolol, aspirin 81 mg, B12, vitamin D, mirtazapine, prazosin, losartan, folic acid, pyridoxine. Patient has been seen by myself on 07/25/2022 for altered mental status, agitation and irritability without loss of memory or any focal deficits. It was felt possible transient global amnesia although not classical, as patient did not lose complete memory of that event. Patient was found to have left ICA s tenosis, moderate degree. Patient had mild B12, folate and B6 borderline levels, macrocytosis due to above. Patient has atrial fibrillation, status post Watchman device at [place] on 05/27/2020. Patient has history of GI bleed, hypertension hyperlipidemia. Cervical spine MRI performed today revealed severe degeneration changes with severe spinal canal stenosis from C3-C4 through C6-C7 with severe neural foraminal stenosis bilaterally. Evidence of myelomalacia at the level of C3-C4. I personally reviewed MRI of the cervical spine, agree with the findings. Review of Systems Constitutional: Denies chills, Denies fever Eyes: denies blurred vision, denies diplopia, denies pain, denies loss of peripheral vision Ears: bilateral: decreased hearing, deny: ear discharge, earache Ears, nose, mouth and throat: Denies headache, Denies sore throat Cardiovascular: Reports shortness of breath, Denies chest pain Respiratory: Denies cough, Denies excessive sputum Gastrointestinal: Denies abdominal pain, Denies diarrhea, Denies nausea, Denies vomiting Genitourinary: Reports as per HPI Musculoskeletal: Reports low back pain, Reports neck pain Integumentary: Denies pruritus, Denies rash Neurological: Reports as per HPI Psychiatric: Denies anxiety, Denies depression Hematologic/Lymphatic: Denies easy bleeding, Denies easy bruising Past Medical History Past Medical History: Atrial Fibrillation, Asthma, COPD, GERD/Reflux, GI Bleed, Hyperlipidemia, Hypertension, Osteoarthritis (OA), Pneumonia, Vascular Disorder Additional Past Medical History / Comment(s): [place], Bronchitis, gastric ulcer, diverticular disease, lower GI bleed/AV malformation with ablation, benign colon polyp, borderline hyperlipidemia, arthritis mostly in back, slight bilateral glaucoma, varicosities. History of Any Multi-Drug Resistant Organisms: None Reported Past Surgical History: Adenoidectomy, Appendectomy, Heart Catheterization, Hysterectomy, Tonsillectomy, Tubal Ligation Additional Past Surgical History / Comment(s): Colonoscopy/benign polypectomy/AV malformation ablation, bilateral cataract removals, watchmen procedure Past Anesthesia/Blood Transfusion Reactions: No Reported Reaction Additional Past Anesthesia/Blood Transfusion Reaction / Comment(s): never recieved blood before. Past Psychological History: No Psychological Hx Reported Smoking Status: Never smoker Past Alcohol Use History: None Reported Past Drug Use History: None Reported - Past Family History Father Family Medical History: COPD Additional Family Medical History / Comment(s): EMPHYSEMA Mother Family Medical History: Osteoarthritis (OA) Additional Family Medical History / Comment(s): EMPHYSEMA, BOWEL OBSTRUCTION/COLOSTOMY Medications and Allergies Home Medications Medication Instructions Recorded Confirmed Type Pravastatin Sodium [Pravachol] 40 mg PO DAILY 07/20/15 08/30/23 History Latanoprost [Xalatan 0.005%] 1 drop BOTH EYES HS 10/15/16 08/30/23 History nadoloL [Nadolol] 40 mg PO DAILY 10/15/16 08/30/23 History Budesonide/Formoterol Fumarate 1 puff INHALATION RT-BID 08/11/17 08/30/23 History [Symbicort 160-4.5 Mcg Inhaler] Omeprazole 20 mg PO DAILY 06/25/20 08/30/23 History Aspirin 81 mg PO DAILY tab 11/26/22 08/30/23 Rx Cyanocobalamin [Vitamin B-12] 500 mcg PO DAILY #30 tab 11/26/22 08/30/23 Rx Ascorbic Acid [Vitamin C] 1,000 mg PO DAILY 08/30/23 08/30/23 History Carboxymethylcell/Glycerin/Pf 1 drop BOTH EYES QID PRN 08/30/23 08/30/23 History [Refresh Relieva Pf 0.5-1% Drop] Cholecalciferol [Vitamin D3 (125 125 mcg PO DAILY 08/30/23 08/30/23 History Mcg = 5000 Iu)] Folic Acid 0.8 mg PO DAILY 08/30/23 08/30/23 History Losartan Potassium [Cozaar] 100 mg PO HS 08/30/23 08/30/23 History Mirtazapine [Remeron] 7.5 mg PO HS 08/30/23 08/30/23 History Potassium Chloride [Klor-Con M10] 20 meq PO DAILY 08/30/23 08/30/23 History Prazosin [Minipress] 1 mg PO TID 08/30/23 08/30/23 History Pyridoxine [Vitamin B-6] 100 mg PO DAILY 08/30/23 08/30/23 History Allergies Allergy/AdvReac Type Severity Reaction Status Date / Time No Known Allergies Allergy Verified 08/30/23 11:10 Physical Examination - Vital Signs Vital Signs: Vital Signs Temp Pulse Resp BP BP Pulse Ox 08/31/23 16:04 180/92 08/31/23 14:30 180/101 08/31/23 12:44 97.9 F 89 17 192/101 95 08/31/23 07:44 97 08/31/23 07:00 98.5 F 88 15 171/91 94 L 08/31/23 03:12 98.5 F 91 18 172/84 95 08/30/23 19:33 98.0 F 101 H 18 179/81 93 L 08/30/23 18:52 98.3 F 102 H 14 183/83 95 Intake and Output 08/31/23 08/31/23 08/31/23 06:59 14:59 22:59 Other: # Voids 4 Patient is an elderly female in no acute distress. Patient is extremely hard of hearing. Patient is alert awake oriented to time place and person. Patient knows it is August 2023 and that she is in [facility] imported on [place]. Speech and language functions are normal. Patient can name and repeat very well. No aphasia or dysarthria. Attention, concentration and fund of knowledge is adequate. On cranial nerve examination, pupils are unequal, right pupil is slightly bigger than the left. She had history of cataract surgery. Both pupils are round and minimally reacting to light, visual jackson are full on confrontation, with no neglect on double simultaneous stimulation. Extraocular muscles are intact with no nystagmus. Face is symmetric, tongue protrudes to the midline. Palatal elevation and sensation normal, hearing is severely decreased bilaterally and shoulder shrug normal, facial sensation normal. On muscle strength testing, the strength is (right/left) deltoid 4-/4-, triceps 4+/4+, biceps 4+/4+, installer molding and trim 4-/4-hip flexion 3+/4-, toe extension 4+/4+, ankle dorsiflexion 5/5 there is no pronator drift and the strength is normal in arms and legs distally and proximally. Deep tendon reflexes are symmetric biceps 2, brachioradialis 2, knees 2+, ankles 2 and plantars downgoing bilaterally. Sensory to touch is equal with no neglect on double simultaneous stimulation. Cerebellar function showed ataxia for [id number] testing L >> R. Not checked for ataxia for [id number] testing on either side. Tone and bulk of muscles normal. Gait deferred.. On general examination, there is no carotid bruit or murmur, S1-S2 audible. Chest is clear on consultation. Abdomen is soft nontender. No organomegaly, bowel sounds present. Peripheral pulses are present. No peripheral edema. Results - Laboratory Findings CBC and BMP: 08/30/23 11:25 08/30/23 11:25 Abnormal Lab Findings: Abnormal Labs 08/30/23 08/30/23 11:25 11:25 RBC 3.62 L MCV 106.8 H Carbon Dioxide 33 H BUN 24 H Glucose 113 H Magnesium 1.5 L Alkaline Phosphatase 131 H Total Protein 6.2 L Albumin 3.3 L Assessment and Plan Assessment: * Cervical spinal stenosis with cervical myelopathy noted on MRI of the cervical spine. Patient presented acutely with neck pain, numbness of the hands and difficulty walking. Patient has some bowel urgency but no incontinence of bowels or bladder. Examination reveals moderate weakness of upper extremities bilaterally. * Hard of hearing * Paroxysmal atrial fibrillation, status post Watchman device at [place] on 05/27/2020 * History of GI bleed * Chronic renal disease * COPD * Hypertension * History of left ICA stenosis, follows with Dr. Dumont, currently on aspirin * History of mild B12, folate and B6 borderline levels, on replacement Plan: * Cervical spine MRI performed today revealed severe degeneration changes with severe spinal canal stenosis from C3-C4 through C6-C7 with severe neural foraminal stenosis bilaterally. Evidence of myelomalacia at the level of C3- C4. I personally reviewed MRI of the cervical spine, agree with the findings. * Orthopedic spine surgery on board, patient on gabapentin 300 mg 3 times daily and IV steroids Decadron 4 mg IVP every 6 hours. * Patient states she is undergoing cervical spinal decompression surgery in the morning. * DVT prophylaxis: Will defer to IM/orthopedic surgery. * Neurology will follow clinically. Thank you for the consult.
--- NOTE | 2023-09-01 10:39 | P.OP ---
Date of Procedure: 09/01/23 Preoperative Diagnosis: 1. CERVICAL STENOSIS, SEVERE WITH MYELOPATHY 2. BUE AND LE WEAKNESS 3. PARAPLEGIA LE 4. NECK PAIN 5. UE PARESTHESIAS Postoperative Diagnosis: 1. CERVICAL STENOSIS, SEVERE WITH MYELOPATHY 2. BUE AND LE WEAKNESS 3. PARAPLEGIA LE 4. NECK PAIN 5. UE PARESTHESIAS Procedure(s) Performed: 1. C2-T2 posterolateral instrumented fusion (21023, [id number]) 2. C2-T2 instrumentation (63241) 3. C2-T1 decompressive laminectomy, partial medial facetectomy and foraminotomy (05505, [id number]) USE OF IONM Implants: -OSCAR POSTERIOR CERVIAL SYSTEM 5.0. -AUTOGRAFT, MAGNATOS Anesthesia: GETA Surgeon: Amando Wilson Manager Epic #1: Padmini Kamara (WAS PRESENT AND ASSISTED WITH ALL ASPCECTS OF THE CASE FROM POSITION TO DRESSING PLACEMENT) Estimated Blood Loss (ml): 100 IV fluids (ml): 1,200 Urine output (ml): 200 Pathology: none sent Condition: stable Disposition: PACU Indications for Procedure: Nancy Naqvi is a 78 yo female presenting for evaluation of BUE and LE weakness, acute inability to ambulate, neck pain. It was my pleasure to have seen and examined Nancy Naqvi. In our visit today we have had a chance to go over subjective complaints, physical examination findings and treatments including the natural course history without intervention and various interventional options. The patients imaging demonstrates SEVERE CERVICAL STENOSIS WITH MYELOMALACIA C3- 7 WITH SEVERE DEGENERATIVE CHANGES, SPONDYLOSIS AND FORAMINAL STENOSIS AT ALL LEVELS. THERE IS KYPHOTIC DEFORMITY DUE TO THE COLLAPSE OF DISC AND OSTEOPHYTE FORMATION ANTERIOR AND POSTERIORLY. NO FRACTURES NOTED. C0-1 AND C1-2 STABLE. On physical exam, Nancy Naqvi demonstrates BUE AND BLE WEAKNESS, ACUTE CHANGE FOR PATIENT. 3/4 DTR ALL, +BENAVIDES'S BL. 4-/5 STRENGTH IN UE AND LE WITH 3/5 IN HF AND KF/KE B/L WELL MYCOLOGIST STRENGTH BL. +DISTAL PULSES. TTP POSTERIOR NECK MIDLINE. I have explained to the patient that as their condition progresses it will cause further neurological deficits and eventual paralysis. Based on the patients imaging, physical exam, and the rapid progression and disabling nature of their symptoms, at this time I recommend surgery in the form or a: C2-T2 DECOMPRESSION AND FUSION. I discussed the risk and benefits of this procedure at length with Nancy Naqvi. The patient agreed to considered pursuing the procedure abovementioned. Prior to surgery, she should follow up with her PCP (Cardio, ID, IM etc) for clearance. Questions were invited and answered, and the patient wishes to proceed as outlined below. Currently, I am recommendin. C2-T2 DECOMPRESSION AND FUSION Description of Procedure: C2-T2 decompression and fusion The patient was seen and examined in the preoperative area. All preoperative protocols were followed. Informed consent was obtained, risks and benefits of the procedure were discussed at length. Risks including bleeding infection damage to the surrounding tissue and risk of reoperation were discussed with the patient. Risk of anesthesia up to and including was discussed with the patient. These are outlined in the risk review. They were willing to accept these risks and all of the risks of surgery. The patient was given a weight- based dose of antibiotics in the form of 2 g Ancef. The patient was seen and evaluated by the anesthesia team who deemed them fit for surgery. The site was marked, the patient was willing to proceed with the procedure. The patient was transferred to the operative suite by the Department of anesthesia. They were then drifted off to sleep by the department anesthesia and GETA was performed. The patient tolerated this well. pre-positioning motors were obtained.Fields in place from the floor. Once confirmation of lines and ventilation Cooper head clamp was placed on the patient and secured and the patient was transferred to a [prone Deniz table very carefully] with the Cooper head school custodian the head was secured and placed into an optimal position x- ray confirmed this position. Post-positioning motors remained stable. All bony prominences including wrists, elbows, axilla, chest, hips, and thighs, and feet were padded very well. Special attention was paid to the genitalia and these were padded accordingly. SCDs were placed on bilateral lower extremities and were connected. Arms were well padded and placed tucked at his side thumbs down. Shoulders were gently taped down to the table.. Once in position, again we confirmed good ventilation capabilities and that lines were running appropriately. The patient's posterior cervical spine was then exposed. 1010s were placed outlining the incision site. Standard alcohol was used to clean the incision site and allowed to dry. C-arm was used to biomark the patient and confirm level for incision which was marked with a skin marker. Operative briefing was performed with all teams and everyone in agreement to proceed. The patient was then prepped and draped in a normal sterile fashion. Timeout was then performed and all parties were in agreement with the procedure to be performed. Midline skin incision made over the previously bio-marked area and dissection taken down midline to the SP of C2-T2. Subperiosteal dissection taken out over the lamina and lateral masses of C2-C7 and TVP of T1 and T2. Once exposure complete, the wound was irrigated and the C-arm brought in for imaging. A penfield 4 was used to bluntly dissect the medial border of C2 pedicle and placed for guidance. C arm used and a jorge hole made for the starting point. The C2 pedicle was then drilled in 2 mm increments to 16 mm using a ball tip feeler in between each drill session to make sure within the 4 castillo with a good bottom. Once this was accomplished a screw was selected and placed under lateral fluoroscopic guidance. Screw had a good purchase. This was then repeated on the contralateral side. AP confirmed good placement of both screws. We then proceeded to the T1 and T2 screws bilaterally. A high speed jorge was used to remove the facet joint of C7 and to create a starting point for T1 and similarly, T1 facet for T2. Pedicle finder was then p assed into T1 and T2 and imaging taken to confirm placement this was then removed and a tap placed ball-tipped probe was then placed and 4 castillo of pedicle fell with good bottom. Screw was then measured and placed intoT1 and T2. This is repeated on the contralateral side. Imaging confirmed good placement of all 4 thoracic screws. The wound was then irrigated. Lateral mass screws were then drilled to 12 mm and placed at each level from C3-6. C5 left out b/l due to atrophy of LM. Each had a good bite. Rods were then sized and selected and cut to length. They were bent accordingly and lordosis and to fit the occiput plate. These were then secured into C2 bilaterally and then sequentially reduced into lateral mass screws and T1 and T2 screws without issues. All set screws were placed and were then final tightened and the position. Bilateral laminectomy, facetectomy and foraminotomies were then done from C2-T1 using high speed jorge, kerrison rongeur and upbiting curette. Bilateral laminotomy troughs were made with jorge followed by curette to release ligamentum. Rongure was then used to gently remove the lamina and facets posteriorly without issues. Meticulous hemostasis was performed after.. Motors were run before and after decompression and they remain stable. Good pulsations of the cord were noted after decompression. Foraminotomies then performed with kerrison rongeur and clean up of the laminectomy site. The wound was then copiously irrigated with 3 L of Ancef irrigation followed by 3 L of gentamicin irrigation followed by 3 L of normal sterile saline. Facet joints were drilled at each level to allow for fusion Surgicel was placed over the dura. MagnetOs were placed in the posterior lateral gutters along with autograft.. This was impacted into position for fusion. 2 g of powdered vancomycin was then placed deep within the wound and a deep drain was placed. We then proceeded with layered closure first in the deep fascia with #1 PDS then in the deep fascia followed by a running #1 stratafix. 0 Vicryl was used in the deep subq fascia and an 0 PDS stratafix used in the subdermal layer. Skin shagufta then approximated skin edges. The wound edges approximated very well. The wound was then cleaned and dressed sterilely with an operative foam dressing 4 x 4 and Tegaderm. The drain had good suction. The patient was placed in a hard cervical collar. The patient was transferred back to their hospital bed atraumatically. Cooper head clamp was removed and pin sites were clear. Drain continued to hold suction. Patient was placed in a hard collar Patient was then awakened and extubated by the department of anesthesia having tolerated the procedure very well with no complications. They were transferred to the postoperative care unit in stable condition.
[2023-09-01] MEDS ORDERED: HYDROmorphone 0.5 MG/0.5 ML SYRINGE IVP PRN (10:47)
[2023-09-01] MEDS ORDERED: MAGNESIUM HYDROXIDE 2,400 MG/30 ML CUP PO PRN (10:47)
[2023-09-01] MEDS ORDERED: bisacodyL 10 MG SUPP RECTAL PRN (10:47)
[2023-09-01] MEDS ORDERED: ONDANSETRON 4 MG/2 ML VIAL IVP PRN (10:47)
[2023-09-01] MEDS: HYDROmorphone 0.5 MG/0.5 ML SYRINGE IVP PRN (10:56)
[2023-09-01] MEDS: hydrALAZINE HCL 20 MG/ML 1 ML VIAL IVP ONE ×2 (11:20→11:31)
[2023-09-01] MEDS: TRANEXAMIC ACID 1,000 MG in SODIUM CHLORIDE 0.9% 100 ML IVPB ONE ×2 (11:27)
[2023-09-01] MEDS: LACTATED RINGERS 1,000 ML IV SCH (11:28)
[2023-09-01] MEDS: HYDROcodone/APAP 5-325MG 1 EACH TAB PO PRN (12:44)
[2023-09-01] MEDS: HYDROmorphone 1 MG/ML 1 ML SYRINGE IVP PRN (14:09)
--- NOTE | 2023-09-01 15:38 | CT ---
EXAMINATION TYPE: CT cervical spine wo con DATE OF EXAM: 09/01/2023 COMPARISON: 08/30/2023 HISTORY: POST OP CERVICAL SPINE CT DLP: 238.7 mGycm Automated exposure control for dose reduction was used. TECHNIQUE: CT scan of the cervical spine is obtained without contrast, axial images are obtained, sa gittal and coronal reformatted images are also reviewed. FINDINGS There are recent postsurgical changes of posterior metallic cervical fusion via laminectomy from C2 t o T2. There are skin shagufta in the posterior midline soft tissues. There are scattered gas bubbles in the soft tissues consistent with recent surgery. The cervical vertebral segments are normal in height and alignment there is no fracture or subluxatio n. There is no change in the moderate marked diffuse degenerative disc disease throughout the cervical r egion where there is moderate to marked disc space narrowing and spondylosis. There is no bony compro mise of the cervical canal. There are no large epidural fluid collections or abscesses in the surgica l bed. IMPRESSION: Recent surgery with extensive postsurgical changes of wide laminectomy and posterior metallic fusion from C2 through T2.
--- NOTE | 2023-09-01 16:09 | P.PN ---
Progress Note - Text Progress Note Date: 09/01/23 Chief Complaint: Weakness in all 4 limbs very pleasant 78-year-old patient of Dr. Zbigniew Gary. Chronic stable medical conditions include GERD, hyperlipidemia, hypertension, osteoarthritis, paroxysmal atrial fibrillation, varicose veins, diverticulosis. very hard of hearing and does lipreading. watchman procedure done by Dr. Concepcion at [facility] on 05/2020.. July 2022. [With altered mental status.] MRI/EEG/neurological work was unremarkable. Carotid Doppler showed 50-69% on the left ICA. Nonvisualization of the right vertebral artery. Patient was placed on aspirin and was to follow- up with Dr. Mota from vascular.SLUMS-examination suggestive of dementia.-Not severe. Patient has chronic left eye ptosis and left nasolabial weakening. Patient normally able to get about. Yesterday morning patient felt some pain in the neck. Let it go. Later she went to lie down. When she tried to get up she really could not get up and fell down. She had to crawl. [place] weak in all the limbs. She called up her daughter. Denies any change in vision no change in speech. No involvement of bowel or bladder. More weak on the right side. Still not able to get out of bed. September 01, 2023: Patient underwent cervical spine/thoracic spine surgery by Dr. Wilson this morning. Patient having significant pain. Has a neck support in place. Family at the bedside. Blood pressure likely elevated because of pain. Minipress was increased yesterday. Active Medications Acetaminophen (Acetaminophen Tab 500 Mg Tab) 1,000 mg PO TID [facility] Hydrocodone Bitart/Acetaminophen (Hydrocodone/Apap 5-325mg 1 Each Tab) 1 each PO Q4HR PRN PRN Reason: Pain Scale 4 - 6 Last Admin: 09/01/23 12:44 Dose: 1 each Hydrocodone Bitart/Acetaminophen (Hydrocodone/Apap 10-325mg 1 Each Tab) 1 each PO Q6H PRN PRN Reason: Pain Scale 7 - 10 Artificial Tears (Artificial Tears-Hypromellose Drops 15 Ml Btl) 1 drops BOTH EYES QID PRN PRN Reason: Dry Eye(s) Ascorbic Acid (Ascorbic Acid 500 Mg Tab) 1,000 mg PO DAILY [facility] Last Admin: 09/01/23 07:48 Dose: Not Given Aspirin (Aspirin 81 Mg) 81 mg PO DAILY [facility] Last Admin: 09/01/23 07:48 Dose: Not Given Bisacodyl (Bisacodyl 10 Mg Supp) 10 mg RECTAL DAILY PRN PRN Reason: Constipation Budesonide/Formoterol Fumarate (Symbicort 160-4.5 Mcg Inhaler) 2 puff INHALATION RT-BID [facility] Last Admin: 09/01/23 07:40 Dose: Not Given Chlorthalidone (Chlorthalidone 25 Mg Tab) 25 mg PO DAILY [facility] Last Admin: 09/01/23 07:49 Dose: Not Given Cholecalciferol (Cholecalciferol 125 Mcg (5000 Iu) Tablet) 125 mcg PO DAILY [facility] Last Admin: 09/01/23 07:49 Dose: Not Given Cyanocobalamin (Cyanocobalamin 500 Mcg Tab) 500 mcg PO DAILY [facility] Last Admin: 09/01/23 07:49 Dose: Not Given Cyclobenzaprine HCl (Cyclobenzaprine 5 Mg Tab) 5 mg PO TID PRN PRN Reason: Muscle Spasm Dexamethasone Sodium Phosphate (Dexamethasone Sod Phosphate 4 Mg/Ml 1 Ml Vial) 4 mg IVP Q6HR [facility] Last Admin: 09/01/23 12:44 Dose: 4 mg Folic Acid (Folic Acid 1 Mg Tab) 1 mg PO DAILY [facility] Last Admin: 09/01/23 07:49 Dose: Not Given Gabapentin (Gabapentin 300 Mg Cap) 300 mg PO TID [facility] Last Admin: 09/01/23 07:49 Dose: Not Given Hydralazine HCl (Hydralazine Hcl 20 Mg/Ml 1 Ml Vial) 10 mg IVP Q4HR PRN PRN Reason: Blood Pressure - High Last Admin: 08/30/23 18:14 Dose: 10 mg Hydromorphone HCl (Hydromorphone 0.5 Mg/0.5 Ml Syringe) 0.5 mg IVP Q5M PRN PRN Reason: Phase 1 or 2 - Pain Control Stop: 09/02/23 23:00 Last Admin: 09/01/23 11:03 Dose: 0.5 mg Hydromorphone HCl (Hydromorphone 0.5 Mg/0.5 Ml Syringe) 0.5 mg IVP Q3HR PRN PRN Reason: Pain Scale 4 - 6 Hydromorphone HCl (Hydromorphone 1 Mg/Ml 1 Ml Syringe) 1 mg IVP Q3HR PRN PRN Reason: Pain Scale of 7 - 10 Last Admin: 09/01/23 14:09 Dose: 1 mg Lactated Ringer's (Lactated Ringers) 1,000 mls @ 20 mls/hr IV .Q24H [facility] Last Admin: 09/01/23 11:28 Dose: Not Given Cefazolin Sodium 1,000 mg/ (Sodium Chloride) 50 mls @ 100 mls/hr IVPB Q8HR [facility]; Protocol Stop: 09/02/23 00:29 Latanoprost (Latanoprost 0.005% Ophth Drops 2.5 Ml Btl) 1 drops BOTH EYES HS [facility] Last Admin: 08/31/23 20:09 Dose: 1 drops Losartan Potassium (Losartan 50 Mg Tab) 100 mg PO HS [facility] Last Admin: 08/31/23 20:09 Dose: 100 mg Magnesium Hydroxide (Magnesium Hydroxide 2,400 Mg/30 Ml Cup) 2,400 mg PO DAILY PRN PRN Reason: Constipation Mirtazapine (Mirtazapine 15 Mg Tab) 7.5 mg PO HS [facility] Last Admin: 08/31/23 20:10 Dose: 7.5 mg Nadolol (Nadolol 20 Mg Tab) 40 mg PO DAILY [facility] Last Admin: 09/01/23 07:50 Dose: Not Given Naloxone HCl (Naloxone 0.4 Mg/Ml 1 Ml Vial) 0.2 mg IV Q2M PRN PRN Reason: Opioid Reversal Ondansetron HCl (Ondansetron 4 Mg/2 Ml Vial) 4 mg IVP ONCE PRN PRN Reason: Phase 1 or 2 - Nausea/Vomiting Stop: 09/02/23 23:00 Ondansetron HCl (Ondansetron 4 Mg/2 Ml Vial) 4 mg IVP Q6HR PRN PRN Reason: Nausea And Vomiting Pantoprazole Sodium (Pantoprazole 40 Mg Tablet) 40 mg PO DAILY [facility] Last Admin: 09/01/23 07:50 Dose: Not Given Potassium Chloride (Potassium Chloride Er 20 Meq Tab.Er) 20 meq PO DAILY [facility] Last Admin: 09/01/23 07:50 Dose: Not Given Pramipexole Dihydrochloride (Pramipexole 0.125 Mg Tab) 0.125 mg PO BID [facility] Last Admin: 09/01/23 07:50 Dose: Not Given Pravastatin Sodium (Pravastatin Sodium 40 Mg Tab) 40 mg PO DAILY [facility] Last Admin: 09/01/23 07:50 Dose: Not Given Prazosin HCl (Prazosin 1 Mg Cap) 2 mg PO TID [facility] Last Admin: 09/01/23 07:50 Dose: Not Given Pyridoxine HCl (Pyridoxine 50 Mg Tab) 100 mg PO DAILY [facility] Last Admin: 09/01/23 07:50 Dose: Not Given Senna/Docusate Sodium (Sennosides-Docusate Sodium 1 Each Tab) 2 each PO DAILY [facility] Past medical history to include: Asthma, GERD, hyperlipidemia, hypertension, osteoarthritis, paroxysmal atrial fibrillation, varicose veins, stomach ulcer, diverticulitis. Esophagitis, gastritis, internal/external hemorrhoids, watchman procedure, esophagitis, internal hemorrhoids. Right carotid 50-69% stenosis Social history: Does not smoke or drink Cold. Lives alone. Physical examination: VITAL SIGNS: 97.4, 79, 18, 144/88, 100% on 3 L GENERAL: Laying in bed, uncomfortable EYES: Pupils equal. Conjunctiva pale. HEENT: External appearance of nose and ears normal, oral cavity grossly normal. Very hard of hearing NECK: Hard collar HEART: First and second heart sounds are normal; no edema. LUNGS: Respiratory rate normal, decreased breaths sounds. ABDOMEN: Soft, nontender, liver spleen not palpable, no masses palpable. PSYCH: Able to hold on to a regular conversation. Slight forgetfulness. MUSCULAR skeletal:: Evidence of OA especially in the hands. Dressing over surgical site NEUROLOGICAL: Cranial nerves grossly intact; no facial asymmetry, Armond to move all limbs INVESTIGATIONS, reviewed in the clinical context: August 30, 2023: White count 9.4 hemoglobin 12.1 platelets 219 sodium 140 potassium 4.2 BUN 24 creatinine 0.82 Troponin I less than 0.012 UA: Negative CT brain without contrast: Unremarkable Cervical spine CT: Mild DJD changes. Compromise of the cervical canal C3-C4, C4-C5, C5-6 6. Multiple foramina encroachment levels. Assessment and plan: -Acute presentation cervical stenosis severe with myelopathy, causing acute quadriparesis: Surgical intervention by Dr. Wilson on September 01, 2023 1. C2-T2 posterolateral instrumented fusion (36787, [id number]) 2. C2-T2 instrumentation (75544) 3. C2-T1 decompressive laminectomy, partial medial facetectomy and foraminotomy ([id number], [id number]) USE OF IONM Implants: -OSCAR POSTERIOR CERVIAL SYSTEM 5.0. -AUTOGRAFT, MAGNATOS Hard collar -Mild cognitive impairment. [Previous SLUMS examination, was given by the speech therapist. 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 Nonvisualization of the right vertebral artery Baby aspirin. Follow-up with Dr. Mota outpatient -Internal hemorrhoids. - moderate persistent asthma, continue with Symbicort -Chronic kidney disease, stage 2, likely nephrosclerosis -COPD in secondhand smoke exposure Bronchodilators -GERD, on PPI -Hyperlipidemia, on Pravachol -Essential hypertension, verapamil ER, Univasc, nadolol -Primary osteoarthritis, use Tylenol when necessary -Paroxysmal atrial fibrillation currently in sinus rhythm -Chronic Esophagitis and gastritis., On PPI -Very hard of hearing Hearing aids Spoke with the family at the bedside. Follow-up with surgery. Elevated blood pressure from uncontrolled pain which is being followed by surgery. Past Medical History Past Medical History: Atrial Fibrillation, Asthma, COPD, GERD/Reflux, GI Bleed, Hyperlipidemia, Hypertension, Osteoarthritis (OA), Pneumonia, Vascular Disorder Additional Past Medical History / Comment(s): ILIAMNA, Bronchitis, gastric ulcer, diverticular disease, lower GI bleed/AV malformation with ablation, benign colon polyp, borderline hyperlipidemia, arthritis mostly in back, slight bilateral glaucoma, varicosities. History of Any Multi-Drug Resistant Organisms: None Reported Past Surgical History: Adenoidectomy, Appendectomy, Heart Catheterization, Hysterectomy, Tonsillectomy, Tubal Ligation Additional Past Surgical History / Comment(s): Colonoscopy/benign polypectomy/AV malformation ablation, bilateral cataract removals, watchmen procedure Past Anesthesia/Blood Transfusion Reactions: No Reported Reaction Additional Past Anesthesia/Blood Transfusion Reaction / Comment(s): never recieved blood before. Past Psychological History: No Psychological Hx Reported Smoking Status: Never smoker Past Alcohol Use History: None Reported Past Drug Use History: None Reported
[2023-09-01] MEDS: ACETAMINOPHEN TAB 500 MG TAB PO SCH (17:53)
[2023-09-02] MEDS: CYCLOBENZAPRINE 5 MG TAB PO PRN (00:45)
[2023-09-02 04:43] LABS: Basophils % (A) 0 %; Eosinophils % (A) 0 %; HGB 11.5 gm/dL (11.4-16.0); Lymphocytes % (A) 7 %; MCH 39.5 pg (25.0-35.0); MCV 106.8 fL (80.0-100.0); Macrocytosis Moderate; Mean Platelet Volume 9.4; Monocytes # (A) 0.7 k/uL (0-1.0); Monocytes % (A) 4 %; Neutrophils # (A) 13.7 k/uL (1.3-7.7); Neutrophils % (A) 88 %; Platelet Count 182 k/uL (150-450); RDW 13.2 % (11.5-15.5); WBC 15.5 k/uL (3.8-10.6)
[2023-09-02 04:55] LABS: African American GFR (CKD) 65 (>60 ml/min/1.73 sqM); Anion Gap 5 mmol/L; Blood Urea Nitrogen 34 mg/dL (7-17); Calcium 8.8 mg/dL (8.4-10.2); Carbon Dioxide 29 mmol/L (22-30); Chloride 102 mmol/L (98-107); Glucose 136 mg/dL (74-99); Non-African American GFR(CKD) 57 (>60 ml/min/1.73 sqM); Potassium 3.9 mmol/L (3.5-5.1); Sodium 136 mmol/L (137-145)
[2023-09-02] MEDS ORDERED: ONDANSETRON 4 MG/2 ML VIAL IVP PRN (07:00)
[2023-09-02] MEDS: SENNOSIDES-DOCUSATE SODIUM 1 EACH TAB PO SCH (10:13)
--- NOTE | 2023-09-02 11:11 | P.PN ---
Subjective Progress Note Date: 09/02/23 Principal diagnosis: Generalized weakness Recent falls Cervical kyphosis Moderate cervical stenosis C3-C6 Multilevel cervical neuroforaminal encroachment Dextroconvex scoliosis Moderate to severe right neuroforaminal stenosis L4-S1 Moderate to severe left neuroforaminal stenosis L2L3, L5-S1 Bilateral upper and lower radiculopathy with weakness Complex medical comorbidities Patient seen and examined this morning. Patient is very lethargic, although opens her eyes to command. Oral pain medication needs to be introduced over IV Dilaudid. Medications have been adjusted. Patient was unable to stay awake long enough to do a thorough physical assessment. Surgical dressing to the posterior cervical spine is clean dry and intact with Hemovac present with 160 mL output overnight. Utilize ice packs for pain management across bilateral shoulders. Encourage patient to work with physical therapy, attempt to be up in chair for all meals. Will reassess later today. Objective - Vital Signs Vital signs: Vital Signs Temp 98.2 F 09/01/23 20:47 Pulse 93 09/01/23 20:47 Resp 17 09/01/23 16:47 BP 120/65 09/01/23 20:47 Pulse Ox 85 L 09/01/23 20:47 FiO2 Intake & Output 09/01/23 09/02/23 09/02/23 18:59 06:59 18:59 Intake Total 1352 Output Total 350 760 Balance 1002 -760 Intake: IV 1352 Output: Drainage 160 Posterior Neck 160 Urine 250 600 Uretheral (Monson) 600 Estimated Blood Loss 100 Other: Voiding Method Indwelling Catheter # Voids 1 - Exam Physical Examination General: The patient is lethargic this morning, in no acute distress Skin: Skin is warm and dry with no obvious rashes or lesions. Surgical incision to the posterior cervical spine, dressing is clean dry and intact with Hemovac present with 160 mL output overnight. Eye: Pupils are equal, round and reactive to light, extra-ocular movements are intact; there is normal conjunctiva bilaterally. Neck: Limited range of motion due to cervical procedure and hard cervical collar intact. Overall limited exam due to lethargy. - Labs CBC & Chem 7: 09/02/23 04:26 09/02/23 04:26 Labs: Abnormal Lab Results - Last 24 Hours (Table) 09/02/23 09/02/23 Range/Units 04:26 04:26 WBC 15.5 H (3.8-10.6) k/uL RBC 2.90 L (3.80-5.40) m/uL Hct 31.0 L (34.0-46.0) % MCV 106.8 H (80.0-100.0) fL MCH 39.5 H (25.0-35.0) pg Neutrophils # 13.7 H (1.3-7.7) k/uL Sodium 136 L (137-145) mmol/L BUN 34 H (7-17) mg/dL Glucose 136 H (74-99) mg/dL Assessment and Plan Assessment: Postop day 1: C2-T2 decompression and fusion Generalized weakness Recent falls Cervical kyphosis Moderate cervical stenosis C3-C6 Multilevel cervical neuroforaminal encroachment Dextroconvex scoliosis Moderate to severe right neuroforaminal stenosis L4-S1 Moderate to severe left neuroforaminal stenosis L2L3, L5-S1 Bilateral upper and lower radiculopathy with weakness Complex medical comorbidities Plan: -Appreciate industrial rehabilitation consultant and team management. -Activity: Ambulate QID, OOB all meals, up and about, limit lifting bending twisting to less than 5 lbs. Use walker or cane if needed for stability. -Daily PT/OT, increase ambulation strength and balance. -Hard cervical collar at all times, may remove for showers. -Pain control: Adequate at this time -Meds: reviewed -GI ppx: senna, Miralax -DC monson when up and about, bedside commode if needed -DVT PPX: Heparin -Hygiene: Maintain dressing clean and dry. -Drains: Maintain for now. Continue to monitor and record output q shift. -Encourage IS 10x/hr -Dispo: Clincally pending *I reviewed and discussed this case with my attending Dr. Wilson, whom has reviewed this chart and films and is in agreement with assessment and plan of care as outlined above. I have personally seen and examined the patient, performed the documentation and the assessment and plan as written. Number of minutes spent on the visit: 15m.
[2023-09-02] MEDS: HYDROcodone/APAP 10-325MG 1 EACH TAB PO PRN (11:30)
--- NOTE | 2023-09-02 16:26 | P.PN ---
Progress Note - Text Progress Note Date: 09/02/23 Chief Complaint: Weakness in all 4 limbs very pleasant 78-year-old patient of Dr. Zbigniew Gary. Chronic stable medical conditions include GERD, hyperlipidemia, hypertension, osteoarthritis, paroxysmal atrial fibrillation, varicose veins, diverticulosis. very hard of hearing and does lipreading. watchman procedure done by Dr. Concepcion at [facility] on 05/2020.. July 2022. [With altered mental status.] MRI/EEG/neurological work was unremarkable. Carotid Doppler showed 50-69% on the left ICA. Nonvisualization of the right vertebral artery. Patient was placed on aspirin and was to follow- up with Dr. Mota from vascular.SLUMS-examination suggestive of dementia.-Not severe. Patient has chronic left eye ptosis and left nasolabial weakening. Patient normally able to get about. Yesterday morning patient felt some pain in the neck. Let it go. Later she went to lie down. When she tried to get up she really could not get up and fell down. She had to crawl. [place] weak in all the limbs. She called up her daughter. Denies any change in vision no change in speech. No involvement of bowel or bladder. More weak on the right side. Still not able to get out of bed. September 01, 2023: Patient underwent cervical spine/thoracic spine surgery by Dr. Wilson this morning. Patient having significant pain. Has a neck support in place. Family at the bedside. Blood pressure likely elevated because of pain. Minipress was increased yesterday. September 02, 2023: Sitting up in a recliner. Hard collar in place. Pain is present. Handgrip is fair. Patient daughter in the room. Decreased oral intake. Add Ensure. Leukocytosis from steroids. Active Medications Acetaminophen (Acetaminophen Tab 500 Mg Tab) 1,000 mg PO TID RIGOBERTO Last Admin: 09/02/23 10:10 Dose: Not Given Hydrocodone Bitart/Acetaminophen (Hydrocodone/Apap 5-325mg 1 Each Tab) 1 each PO Q4HR PRN PRN Reason: Pain Scale 4 - 6 Last Admin: 09/01/23 12:44 Dose: 1 each Hydrocodone Bitart/Acetaminophen (Hydrocodone/Apap 10-325mg 1 Each Tab) 1 each PO Q6H PRN PRN Reason: Pain Scale 7 - 10 Last Admin: 09/02/23 11:30 Dose: 1 each Artificial Tears (Artificial Tears-Hypromellose Drops 15 Ml Btl) 1 drops BOTH EYES QID PRN PRN Reason: Dry Eye(s) Ascorbic Acid (Ascorbic Acid 500 Mg Tab) 1,000 mg PO DAILY [facility] Last Admin: 09/02/23 10:11 Dose: Not Given Aspirin (Aspirin 81 Mg) 81 mg PO DAILY [facility] Last Admin: 09/02/23 10:11 Dose: Not Given Bisacodyl (Bisacodyl 10 Mg Supp) 10 mg RECTAL DAILY PRN PRN Reason: Constipation Budesonide/Formoterol Fumarate (Symbicort 160-4.5 Mcg Inhaler) 2 puff INHALATION RT-BID [facility] Last Admin: 09/02/23 09:48 Dose: 2 puff Chlorthalidone (Chlorthalidone 25 Mg Tab) 25 mg PO DAILY [facility] Last Admin: 09/02/23 10:11 Dose: Not Given Cholecalciferol (Cholecalciferol 125 Mcg (5000 Iu) Tablet) 125 mcg PO DAILY [facility] Last Admin: 09/02/23 10:11 Dose: Not Given Cyanocobalamin (Cyanocobalamin 500 Mcg Tab) 500 mcg PO DAILY [facility] Last Admin: 09/02/23 10:11 Dose: Not Given Cyclobenzaprine HCl (Cyclobenzaprine 5 Mg Tab) 5 mg PO TID PRN PRN Reason: Muscle Spasm Last Admin: 09/02/23 09:52 Dose: 5 mg Dexamethasone Sodium Phosphate (Dexamethasone Sod Phosphate 4 Mg/Ml 1 Ml Vial) 4 mg IVP Q6HR [facility] Last Admin: 09/02/23 11:30 Dose: 4 mg Folic Acid (Folic Acid 1 Mg Tab) 1 mg PO DAILY [facility] Last Admin: 09/02/23 10:11 Dose: Not Given Gabapentin (Gabapentin 300 Mg Cap) 300 mg PO TID [facility] Last Admin: 09/02/23 10:11 Dose: Not Given Hydralazine HCl (Hydralazine Hcl 20 Mg/Ml 1 Ml Vial) 10 mg IVP Q4HR PRN PRN Reason: Blood Pressure - High Last Admin: 08/30/23 18:14 Dose: 10 mg Hydromorphone HCl (Hydromorphone 0.5 Mg/0.5 Ml Syringe) 0.5 mg IVP Q5M PRN PRN Reason: Phase 1 or 2 - Pain Control Stop: 09/02/23 23:00 Last Admin: 09/01/23 11:03 Dose: 0.5 mg Hydromorphone HCl (Hydromorphone 0.5 Mg/0.5 Ml Syringe) 0.5 mg IVP Q3HR PRN PRN Reason: Pain Scale 4 - 6 Lactated Ringer's (Lactated Ringers) 1,000 mls @ 20 mls/hr IV .Q24H [facility] Last Admin: 09/02/23 10:35 Dose: Not Given Latanoprost (Latanoprost 0.005% Ophth Drops 2.5 Ml Btl) 1 drops BOTH EYES HS [facility] Last Admin: 09/01/23 21:24 Dose: 1 drops Losartan Potassium (Losartan 50 Mg Tab) 100 mg PO HS [facility] Last Admin: 09/01/23 21:24 Dose: 100 mg Magnesium Hydroxide (Magnesium Hydroxide 2,400 Mg/30 Ml Cup) 2,400 mg PO DAILY PRN PRN Reason: Constipation Mirtazapine (Mirtazapine 15 Mg Tab) 7.5 mg PO HS [facility] Last Admin: 09/01/23 21:24 Dose: 7.5 mg Nadolol (Nadolol 20 Mg Tab) 40 mg PO DAILY [facility] Last Admin: 09/02/23 10:11 Dose: Not Given Naloxone HCl (Naloxone 0.4 Mg/Ml 1 Ml Vial) 0.2 mg IV Q2M PRN PRN Reason: Opioid Reversal Ondansetron HCl (Ondansetron 4 Mg/2 Ml Vial) 4 mg IVP ONCE PRN PRN Reason: Phase 1 or 2 - Nausea/Vomiting Stop: 09/02/23 23:00 Ondansetron HCl (Ondansetron 4 Mg/2 Ml Vial) 4 mg IVP Q6HR PRN PRN Reason: Nausea And Vomiting Pantoprazole Sodium (Pantoprazole 40 Mg Tablet) 40 mg PO DAILY [facility] Last Admin: 09/02/23 10:11 Dose: Not Given Potassium Chloride (Potassium Chloride Er 20 Meq Tab.Er) 20 meq PO DAILY [facility] Last Admin: 09/02/23 10:12 Dose: Not Given Pramipexole Dihydrochloride (Pramipexole 0.125 Mg Tab) 0.125 mg PO BID [facility] Last Admin: 09/02/23 10:12 Dose: Not Given Pravastatin Sodium (Pravastatin Sodium 40 Mg Tab) 40 mg PO DAILY [facility] Last Admin: 09/02/23 10:12 Dose: Not Given Prazosin HCl (Prazosin 1 Mg Cap) 2 mg PO TID [facility] Last Admin: 09/02/23 10:12 Dose: Not Given Pyridoxine HCl (Pyridoxine 50 Mg Tab) 100 mg PO DAILY [facility] Last Admin: 09/02/23 10:12 Dose: Not Given Senna/Docusate Sodium (Sennosides-Docusate Sodium 1 Each Tab) 2 each PO DAILY [facility] Last Admin: 09/02/23 10:13 Dose: Not Given Past medical history to include: Asthma, GERD, hyperlipidemia, hypertension, osteoarthritis, paroxysmal atrial fibrillation, varicose veins, stomach ulcer, diverticulitis. Esophagitis, gastritis, internal/external hemorrhoids, watchman procedure, esophagitis, internal hemorrhoids. Right carotid 50-69% stenosis Social history: Does not smoke or drink Cold. Lives alone. Physical examination: VITAL SIGNS: 97.7, 68, 17, 174/77, 96% room air GENERAL: Up in a recliner, awake EYES: Pupils equal. Conjunctiva pale. HEENT: External appearance of nose and ears normal, oral cavity grossly normal. Very hard of hearing NECK: Hard collar HEART: First and second heart sounds are normal; no edema. LUNGS: Respiratory rate normal, decreased breaths sounds. ABDOMEN: Soft, nontender, liver spleen not palpable, no masses palpable. PSYCH: Able to hold on to a regular conversation. Slight forgetfulness. MUSCULAR skeletal:: Evidence of OA especially in the hands. Dressing over surgical site NEUROLOGICAL: Cranial nerves grossly intact; no facial asymmetry, Armond to move all limbs INVESTIGATIONS, reviewed in the clinical context: September 02, 2023: White count 15.5 hemoglobin 11.5 platelets 182 potassium 3.9 creatinine 0.96 August 30, 2023: White count 9.4 hemoglobin 12.1 platelets 219 sodium 140 potassium 4.2 BUN 24 creatinine 0.82 Troponin I less than 0.012 UA: Negative CT brain without contrast: Unremarkable Cervical spine CT: Mild DJD changes. Compromise of the cervical canal C3-C4, C4-C5, C5-6 6. Multiple foramina encroachment levels. Assessment and plan: -Acute presentation cervical stenosis severe with myelopathy, causing acute quadriparesis: Surgical intervention by Dr. Wilson on September 01, 2023 1. C2-T2 posterolateral instrumented fusion (50255, [id number]) 2. C2-T2 instrumentation (27186) 3. C2-T1 decompressive laminectomy, partial medial facetectomy and foraminotomy (50399, [id number]) USE OF IONM Implants: -OSCAR POSTERIOR CERVIAL SYSTEM 5.0. -AUTOGRAFT, MAGNATOS Hard collar -Mild cognitive impairment. [Previous SLUMS examination, was given by the speech therapist. 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 Nonvisualization of the right vertebral artery Baby aspirin. Follow-up with Dr. Mota outpatient -Internal hemorrhoids. - moderate persistent asthma, Symbicort -No chronic kidney disease, -COPD in secondhand smoke exposure Bronchodilators -GERD, on PPI -Hyperlipidemia, on Pravachol -Essential hypertension, verapamil ER, Univasc, nadolol -Primary osteoarthritis, use Tylenol when necessary -Paroxysmal atrial fibrillation currently in sinus rhythm -Chronic Esophagitis and gastritis., On PPI -Very hard of hearing Hearing aids Blood pressure fluctuating because of pain. Encourage oral intake. Ensure added. Elevated white count from steroids Past Medical History Past Medical History: Atrial Fibrillation, Asthma, COPD, GERD/Reflux, GI Bleed, Hyperlipidemia, Hypertension, Osteoarthritis (OA), Pneumonia, Vascular Disorder Additional Past Medical History / Comment(s): BILL [place], Bronchitis, gastric ulcer, diverticular disease, lower GI bleed/AV malformation with ablation, benign colon polyp, borderline hyperlipidemia, arthritis mostly in back, slight bilateral glaucoma, varicosities. History of Any Multi-Drug Resistant Organisms: None Reported Past Surgical History: Adenoidectomy, Appendectomy, Heart Catheterization, Hysterectomy, Tonsillectomy, Tubal Ligation Additional Past Surgical History / Comment(s): Colonoscopy/benign polypectomy/AV malformation ablation, bilateral cataract removals, watchmen procedure Past Anesthesia/Blood Transfusion Reactions: No Reported Reaction Additional Past Anesthesia/Blood Transfusion Reaction / Comment(s): never recieved blood before. Past Psychological History: No Psychological Hx Reported Smoking Status: Never smoker Past Alcohol Use History: None Reported Past Drug Use History: None Reported
[2023-09-02] MEDS: predniSONE 20 MG TAB PO STA (22:31)
[2023-09-03] MEDS: predniSONE 20 MG TAB PO SCH (08:31)
[2023-09-03] MEDS ORDERED: DILTIAZEM DRIP BOLUS FROM BAG 1 MG SOLN IV ONE (08:46)
--- NOTE | 2023-09-03 09:31 | P.PN ---
Subjective Progress Note Date: 09/03/23 Principal diagnosis: Generalized weakness Recent falls Cervical kyphosis Moderate cervical stenosis C3-C6 Multilevel cervical neuroforaminal encroachment Dextroconvex scoliosis Moderate to severe right neuroforaminal stenosis L4-S1 Moderate to severe left neuroforaminal stenosis L2L3, L5-S1 Bilateral upper and lower radiculopathy with weakness Complex medical comorbidities Patient seen and examined this morning. Patient is resting comfortably in bed. Daughter is at bedside. Patient has complaint of pain to the posterior cervical spine as well as across the bilateral shoulders. Reviewing of pain medication, patient was not provided any medications throughout the night. Discussion of pain management with dayshift RN and president of the [place]. Educated patient and family to utilize ice packs on bilateral shoulders to assist with pain management. Surgical incision to the posterior cervical spine, dressing is clean dry and intact. Hemovac is present with 20 mL output overnight. Drain may be removed later today once patient's pain is managed. Hard cervical collar is in place. Patient is having difficulty with eating and drinking due to the size of the collar. Order is placed for soft cervical collar. Patient does report mild im provement at this time of her upper extremity radiculopathy and weakness since the procedure. Patient does has a history of A-fib with RVR, patient currently is being placed on telemetry. Continue to encourage patient to be up in chair for all meals and use of the incentive spirometer while awake. Objective - Vital Signs Vital signs: Vital Signs Temp 99 F 09/03/23 07:03 Pulse 142 H 09/03/23 07:03 Resp 16 09/03/23 07:03 BP 132/78 09/03/23 07:03 Pulse Ox 93 L 09/03/23 07:03 FiO2 Intake & Output 09/02/23 09/03/23 09/03/23 18:59 06:59 18:59 Output Total 80 Balance -80 Output: Drainage 80 Posterior Neck 80 Other: # Voids 3 - Exam General: The patient is awake and alert, in no acute distress Skin: Skin is warm and dry with no obvious rashes or lesions. Surgical incision to the posterior cervical spine, dressing is clean dry and intact. Hemovac is present with 20 mL output overnight. Eye: Pupils are equal, round and reactive to light, extra-ocular movements are intact; there is normal conjunctiva bilaterally. Neck: The neck is supple, there is mild tenderness and limited range of motion due to pain and stiffness from surgical procedure. Hard cervical collar is intact. Cardiovascular: There is a regular rate and rhythm. No murmur, rub or gallop is appreciated. Respiratory: Respirations are non-labored, breath sounds are equal. Gastrointestinal: Soft, non-distended, non-tender abdomen. Back: There is no tenderness to palpation in the midline, paralumbar, parathoracic or buttocks region. There is no obvious deformity. Musculoskeletal: ROM limited secondary to pain and stiffness. Shoulder abduction 4/5, elbow flexors 4/5, wrist dorsiflexors 4/5. finger abductor 4/5, crust sorter 4/5, hip flexor 4/5, knee flexor 4/5, ankle dorsiflexor 3/5, ankle plantarflexion 3/5 and extensor hallucis 3/5. Neurological: CN 2-12 intact. There are no obvious motor or sensory deficits. Movement and coordination equal and intact. Sensory exam to light touch intact C5-T1 and intact from L2-S1. Reflexes 3/4 in bilateral upper and lower extremities. Positive bilateral Hoffmans. Psychiatric: Cooperative, appropriate mood & affect, normal judgment. - Labs CBC & Chem 7: 09/02/23 04:26 09/02/23 04:26 Assessment and Plan Assessment: Postop day 2: C2-T2 decompression and fusion Generalized weakness Recent falls Cervical kyphosis Moderate cervical stenosis C3-C6 Multilevel cervical neuroforaminal encroachment Dextroconvex scoliosis Moderate to severe right neuroforaminal stenosis L4-S1 Moderate to severe left neuroforaminal stenosis L2L3, L5-S1 Bilateral upper and lower radiculopathy with weakness Complex medical comorbidities Plan: -Appreciate [employer] hyperion consultant and team management. -Activity: Ambulate QID, OOB all meals, up and about, limit lifting bending twisting to less than 5 lbs. Use walker or cane if needed for stability. -Daily PT/OT, increase ambulation strength and balance. -Cervical collar at all times, may remove for showers. -Order placed for soft cervical collar. -Pain control: Adequate at this time -Meds: reviewed -GI ppx: senna, Miralax -DC monson when up and about, bedside commode if needed -DVT PPX: Heparin -Hygiene: Maintain dressing clean and dry. -Drains: Maintain for now. Continue to monitor and record output q shift. -Encourage IS 10x/hr -Dispo: Clincally pending *I reviewed and discussed this case with my attending Dr. Wilson, whom has reviewed this chart and films and is in agreement with assessment and plan of care as outlined above. I have personally seen and examined the patient, performed the documentation and the assessment and plan as written. Number of minutes spent on the visit: 15m.
[2023-09-03] MEDS ORDERED: KETOROLAC 15 MG/ML 1 ML VIAL IVP PRN (12:39)
[2023-09-03] MEDS: KETOROLAC 15 MG/ML 1 ML VIAL IVP STA (12:48)
--- NOTE | 2023-09-03 13:05 | P.CRDCN ---
History of Present Illness Consult date: 09/03/23 Consult reason: atrial fibrillation (with RVR) History of present illness: History of present illness: This is a 78-year-old female patient of Dr. Jorje Mckee with past medical history of paroxysmal atrial fibrillation status post watchman procedure, COPD, hypertension, hyperlipidemia, and previous GI bleed, history of pulmonary embolism status post IVC filter placement in 2020. Patient has significant hearing loss and reads her daughter's lips to communicate. Patient was admitted to the hospital on 08/30 after she presented with generalized weakness and falls and cervical pain. She underwent workup for the cervical spine and lumbar spine and found to have multilevel cervical neuroforaminal encroachment and cervical stenosis. On 08/31, patient underwent C2-T2 fusion, decompression laminectomy and partial medial facetectomy and foraminotomy. We have been asked to evaluate the patient for A-fib with RVR. Patient apparently has been in significant pain all night did not receive any pain medications since yesterday. Daughter gives history that she has had trouble with her blood pressure being out of control running around 200/100. She underwent trigger point injections by Dr. Aparicio at Dr. Mcguire's office thinking that pain was causing her blood pressure to be out of control. She unfortunately had continued hypertension despite the treatment. She was last seen in the office with Dr. Jorje Mckee on 07/25 at which time patient was started on losartan. Blood pressure has been elevated during this hospitalization but improved this morning 132/78. Patient denies having any palpitations, no shortness of breath no chest pain or chest pressure, no dizziness or lightheadedness. Daughter states she did have some lower extremity edema but none now. No cough no fever or chills. No blood in her stools or urine. EKG A-fib with RVR 148 bpm Chest x-ray: No acute process irregular WBC 15.5, hemoglobin 11.5. Sodium 136, potassium 3.9, BUN 34 creatinine 0.96. Troponin negative x 1 on 08/29. Home cardiac medications: Aspirin 81 mg daily, losartan 100 mg at bedtime, nadolol 40 mg daily, potassium chloride 20 mill equivalents daily, pravastatin 40 mg daily. Echocardiogram performed on 11/23/2022 revealed EF of 55 to 60%. Technically suboptimal and limited echocardiogram. Bubble study was negative for [id number] shunt. Patient underwent Lexiscan stress test in August 2018 which was negative for reversible ischemia Review Of Systems: At the time of my exam: CONSTITUTIONAL: Denies fever or chills. HEENT: Denies blurred vision, vision changes, or eye pain. Denies hemoptysis CARDIOVASCULAR: Denies chest pain. Denies orthopnea. Denies PND. Denies palpitations RESPIRATORY: Denies shortness of breath. GASTROINTESTINAL: Denies abdominal pain. Denies nausea or vomiting. HEMATOLOGIC: Denies bleeding disorders. GENITOURINARY: Denies any blood in urine. SKIN: Denies pruitis. Denies rash. Physical examination: Gen: This is a 78-year-old female appears to be uncomfortable. VS: reviewed HEENT: Head is atraumatic, normocephalic. Pupils equal, round. Sclerae is anicteric. NECK: Supple. No JVD. LUNGS: Clear to auscultation. No wheezes or rhonchi. No intercostal retractions. HEART: Irregular rate and rhythm. No murmur. Tachycardic ABDOMEN: Soft No tenderness. EXTREMITIES: No pedal edema. No calf tenderness. NEUROLOGICAL: Patient is awake, alert and oriented x3. Assessment: Status post spinal surgery Paroxysmal atrial fibrillation status post watchman procedure at [place] 05/2020, currently RVR COPD Hypertension Hyperlipidemia History of GI bleed Pulmonary embolism status post IVC filter placement Plan: Continue patient's home cardiac medications Start patient on Cardizem bolus of 10 mg followed by 10 mg drip Obtain 2-D echocardiogram and Doppler study to assess cardiac structure and function Further recommendations to follow based upon clinical course Thank you kindly for this consultation. Nurse practitioner note has been reviewed, I agree with documented findings and plan of care. Patient was seen and examined. Past Medical History Past Medical History: Atrial Fibrillation, Asthma, COPD, GERD/Reflux, GI Bleed, Hyperlipidemia, Hypertension, Osteoarthritis (OA), Pneumonia, Vascular Disorder Additional Past Medical History / Comment(s): [place], Bronchitis, gastric ulcer, diverticular disease, lower GI bleed/AV malformation with ablation, benign colon polyp, borderline hyperlipidemia, arthritis mostly in back, slight bilateral glaucoma, varicosities. History of Any Multi-Drug Resistant Organisms: None Reported Past Surgical History: Adenoidectomy, Appendectomy, Heart Catheterization, Hysterectomy, Tonsillectomy, Tubal Ligation Additional Past Surgical History / Comment(s): Colonoscopy/benign polypectomy/AV malformation ablation, bilateral cataract removals, watchmen procedure Past Anesthesia/Blood Transfusion Reactions: No Reported Reaction Additional Past Anesthesia/Blood Transfusion Reaction / Comment(s): never recieved blood before. Past Psychological History: No Psychological Hx Reported Smoking Status: Never smoker Past Alcohol Use History: None Reported Past Drug Use History: None Reported - Past Family History Father Family Medical History: COPD Additional Family Medical History / Comment(s): EMPHYSEMA Mother Family Medical History: Osteoarthritis (OA) Additional Family Medical History / Comment(s): EMPHYSEMA, BOWEL OBSTRUCTION/COLOSTOMY Medications and Allergies Home Medications Medication Instructions Recorded Confirmed Type Pravastatin Sodium [Pravachol] 40 mg PO DAILY 07/20/15 08/30/23 History Latanoprost [Xalatan 0.005%] 1 drop BOTH EYES HS 10/15/16 08/30/23 History nadoloL [Nadolol] 40 mg PO DAILY 10/15/16 08/30/23 History Budesonide/Formoterol Fumarate 1 puff INHALATION RT-BID 08/11/17 08/30/23 History [Symbicort 160-4.5 Mcg Inhaler] Omeprazole 20 mg PO DAILY 06/25/20 08/30/23 History Aspirin 81 mg PO DAILY tab 11/26/22 08/30/23 Rx Cyanocobalamin [Vitamin B-12] 500 mcg PO DAILY #30 tab 11/26/22 08/30/23 Rx Ascorbic Acid [Vitamin C] 1,000 mg PO DAILY 08/30/23 08/30/23 History Carboxymethylcell/Glycerin/Pf 1 drop BOTH EYES QID PRN 08/30/23 08/30/23 History [Refresh Relieva Pf 0.5-1% Drop] Cholecalciferol [Vitamin D3 (125 125 mcg PO DAILY 08/30/23 08/30/23 History Mcg = 5000 Iu)] Folic Acid 0.8 mg PO DAILY 08/30/23 08/30/23 History Losartan Potassium [Cozaar] 100 mg PO HS 08/30/23 08/30/23 History Mirtazapine [Remeron] 7.5 mg PO HS 08/30/23 08/30/23 History Potassium Chloride [Klor-Con M10] 20 meq PO DAILY 08/30/23 08/30/23 History Prazosin [Minipress] 1 mg PO TID 08/30/23 08/30/23 History Pyridoxine [Vitamin B-6] 100 mg PO DAILY 08/30/23 08/30/23 History Allergies Allergy/AdvReac Type Severity Reaction Status Date / Time No Known Allergies Allergy Verified 08/30/23 11:10 Physical Exam Vitals: Vital Signs Temp Pulse Resp BP Pulse Ox 09/03/23 07:03 99 F 142 H 16 132/78 93 L 09/02/23 19:04 98.2 F 96 14 114/66 91 L 09/02/23 13:07 97.7 F 68 17 174/77 96 Intake and Output 09/02/23 09/03/23 09/03/23 22:59 06:59 14:59 Output Total 60 20 Balance -60 -20 Output: Drainage 60 20 Posterior Neck 60 20 Results 09/02/23 04:26 09/02/23 04:26 Current Medications Generic Name Dose Route Start Last Admin Trade Name Freq PRN Reason Stop Dose Admin Acetaminophen 1,000 mg 09/01/23 16:00 09/02/23 22:17 Acetaminophen Tab 500 Mg Tab PO 1,000 mg TID RIGOBERTO Administration Hydrocodone Bitart/Acetaminophen 1 each 09/01/23 10:47 09/01/23 12:44 Hydrocodone/Apap 5-325mg 1 Each Tab PO 1 each Q4HR PRN Administration Pain Scale 4 - 6 Hydrocodone Bitart/Acetaminophen 1 each 09/01/23 10:47 09/03/23 08:28 Hydrocodone/Apap 10-325mg 1 Each Tab PO 1 each Q6H PRN Administration Pain Scale 7 - 10 Artificial Tears 1 drops 08/30/23 16:07 Artificial Tears-Hypromellose Drops 15 Ml Btl BOTH EYES QID PRN Dry Eye(s) Ascorbic Acid 1,000 mg 08/31/23 09:00 09/03/23 08:30 Ascorbic Acid 500 Mg Tab PO 1,000 mg DAILY RIGOBERTO Administration Aspirin 81 mg 08/31/23 09:00 09/03/23 08:30 Aspirin 81 Mg PO 81 mg DAILY RIGOBERTO Administration Bisacodyl 10 mg 09/01/23 10:47 Bisacodyl 10 Mg Supp RECTAL DAILY PRN Constipation Budesonide/Formoterol Fumarate 2 puff 08/30/23 20:00 09/02/23 18:36 Symbicort 160-4.5 Mcg Inhaler INHALATION 2 puff RT-BID RIGOBERTO Administration Chlorthalidone 25 mg 08/31/23 16:15 09/03/23 08:30 Chlorthalidone 25 Mg Tab PO 25 mg DAILY RIGOBERTO Administration Cholecalciferol 125 mcg 08/31/23 09:00 09/03/23 08:31 Cholecalciferol 125 Mcg (5000 Iu) Tablet PO 125 mcg DAILY RIGOBERTO Administration Cyanocobalamin 500 mcg 08/31/23 16:00 09/03/23 08:30 Cyanocobalamin 500 Mcg Tab PO 500 mcg DAILY RIGOBERTO Administration Cyclobenzaprine HCl 5 mg 09/01/23 10:47 09/02/23 09:52 Cyclobenzaprine 5 Mg Tab PO 5 mg TID PRN Administration Muscle Spasm Folic Acid 1 mg 08/31/23 09:00 09/03/23 08:31 Folic Acid 1 Mg Tab PO 1 mg DAILY RIGOBERTO Administration Gabapentin 300 mg 08/31/23 16:00 09/03/23 08:30 Gabapentin 300 Mg Cap PO 300 mg TID RIGOBERTO Administration Hydralazine HCl 10 mg 08/30/23 16:08 08/30/23 18:14 Hydralazine Hcl 20 Mg/Ml 1 Ml Vial IVP 10 mg Q4HR PRN Administration Blood Pressure - High Hydromorphone HCl 0.5 mg 09/01/23 10:47 Hydromorphone 0.5 Mg/0.5 Ml Syringe IVP Q3HR PRN Pain Scale 4 - 6 Lactated Ringer's 1,000 mls @ 20 mls/hr 09/01/23 09:30 09/02/23 10:35 Lactated Ringers IV Not Given .Q24H RIGOBERTO Latanoprost 1 drops 08/30/23 21:00 09/03/23 02:12 Latanoprost 0.005% Ophth Drops 2.5 Ml Btl BOTH EYES Not Given HS RIGOBERTO Losartan Potassium 100 mg 08/30/23 21:00 09/02/23 22:18 Losartan 50 Mg Tab PO Not Given HS RIGOBERTO Magnesium Hydroxide 2,400 mg 09/01/23 10:47 Magnesium Hydroxide 2,400 Mg/30 Ml Cup PO DAILY PRN Constipation Mirtazapine 7.5 mg 08/30/23 21:00 09/02/23 22:17 Mirtazapine 15 Mg Tab PO 7.5 mg HS RIGOBERTO Administration Nadolol 40 mg 08/31/23 09:00 09/03/23 08:31 Nadolol 20 Mg Tab PO 40 mg DAILY RIGOBERTO Administration Naloxone HCl 0.2 mg 08/30/23 16:05 Naloxone 0.4 Mg/Ml 1 Ml Vial IV Q2M PRN Opioid Reversal Ondansetron HCl 4 mg 09/01/23 10:47 Ondansetron 4 Mg/2 Ml Vial IVP Q6HR PRN Nausea And Vomiting Pantoprazole Sodium 40 mg 08/31/23 09:00 09/03/23 08:30 Pantoprazole 40 Mg Tablet PO 40 mg DAILY RIGOBERTO Administration Potassium Chloride 20 meq 08/31/23 09:00 09/03/23 08:30 Potassium Chloride Er 20 Meq Tab.Er PO 20 meq DAILY RIGOBERTO Administration Pramipexole Dihydrochloride 0.125 mg 08/31/23 14:48 09/03/23 08:31 Pramipexole 0.125 Mg Tab PO 0.125 mg BID RIGOBERTO Administration Pravastatin Sodium 40 mg 08/31/23 09:00 09/03/23 08:30 Pravastatin Sodium 40 Mg Tab PO 40 mg DAILY RIGOBERTO Administration Prazosin HCl 2 mg 08/31/23 22:00 09/03/23 08:32 Prazosin 1 Mg Cap PO 2 mg TID RIGOBERTO Administration Prednisone 40 mg 09/03/23 09:00 09/03/23 08:31 Prednisone 20 Mg Tab PO 40 mg DAILY RIGOBERTO Administration Pyridoxine HCl 100 mg 08/31/23 09:00 09/02/23 10:12 Pyridoxine 50 Mg Tab PO Not Given DAILY RIGOBERTO Senna/Docusate Sodium 2 each 09/02/23 09:00 09/03/23 08:30 Sennosides-Docusate Sodium 1 Each Tab PO 2 each DAILY RIGOBERTO Administration Intake and Output 09/02/23 09/03/23 09/03/23 22:59 06:59 14:59 Output Total 60 20 Balance -60 -20 Output: Drainage 60 20 Posterior Neck 60 20 09/02/23 04:26 09/02/23 04:26
[2023-09-03 13:27] LABS: HCT 37.6 % (34.0-46.0); HGB 11.9 gm/dL (11.4-16.0); Hypochromasia Slight; MCHC 31.6 g/dL (31.0-37.0); MCV 107.5 fL (80.0-100.0); Macrocytosis Moderate; Mean Platelet Volume 9.3; Platelet Count 195 k/uL (150-450); RDW 13.1 % (11.5-15.5)
[2023-09-03 13:37] LABS: African American GFR (CKD) 63 (>60 ml/min/1.73 sqM); Anion Gap 5 mmol/L; Blood Urea Nitrogen 32 mg/dL (7-17); Calcium 9.3 mg/dL (8.4-10.2); Carbon Dioxide 31 mmol/L (22-30); Chloride 101 mmol/L (98-107); Glucose 220 mg/dL (74-99); Non-African American GFR(CKD) 55 (>60 ml/min/1.73 sqM); Potassium 4.3 mmol/L (3.5-5.1); Sodium 137 mmol/L (137-145)
[2023-09-03] MEDS: DILTIAZEM DRIP BOLUS FROM BAG 1 MG SOLN IV ONE ×2 (14:23→14:40)
[2023-09-03] MEDS: DILTIAZEM 125 MG in SODIUM CHLORIDE 0.9% 100 ML IV SCH ×2 (14:23→14:39)
--- NOTE | 2023-09-03 15:14 | P.PN ---
Progress Note - Text Progress Note Date: 09/03/23 Chief Complaint: Weakness in all 4 limbs very pleasant 78-year-old patient of Dr. Zbigniew Gary. Chronic stable medical conditions include GERD, hyperlipidemia, hypertension, osteoarthritis, paroxysmal atrial fibrillation, varicose veins, diverticulosis. very hard of hearing and does lipreading. watchman procedure done by Dr. Concepcion at [facility] on 05/2020.. July 2022. [With altered mental status.] MRI/EEG/neurological work was unremarkable. Carotid Doppler showed 50-69% on the left ICA. Nonvisualization of the right vertebral artery. Patient was placed on aspirin and was to follow- up with Dr. Mota from vascular.SLUMS-examination suggestive of dementia.-Not severe. Patient has chronic left eye ptosis and left nasolabial weakening. Patient normally able to get about. Yesterday morning patient felt some pain in the neck. Let it go. Later she went to lie down. When she tried to get up she really could not get up and fell down. She had to crawl. [place] weak in all the limbs. She called up her daughter. Denies any change in vision no change in speech. No involvement of bowel or bladder. More weak on the right side. Still not able to get out of bed. September 01, 2023: Patient underwent cervical spine/thoracic spine surgery by Dr. Wilson this morning. Patient having significant pain. Has a neck support in place. Family at the bedside. Blood pressure likely elevated because of pain. Minipress was increased yesterday. September 02, 2023: Sitting up in a recliner. Hard collar in place. Pain is present. Handgrip is fair. Patient daughter in the room. Decreased oral intake. Add Ensure. Leukocytosis from steroids. September 03, 2023: Reclining in bed. Pain better. Hard collar remains in place. Went into A-fib uncontrolled. Cardiology was consulted. Ordered Cardizem drip. Power is fair in all the 4 limbs Active Medications Acetaminophen (Acetaminophen Tab 500 Mg Tab) 1,000 mg PO TID [facility] Last Admin: 09/03/23 08:50 Dose: Not Given Hydrocodone Bitart/Acetaminophen (Hydrocodone/Apap 5-325mg 1 Each Tab) 1 each PO Q4HR PRN PRN Reason: Pain Scale 4 - 6 Last Admin: 09/01/23 12:44 Dose: 1 each Hydrocodone Bitart/Acetaminophen (Hydrocodone/Apap 10-325mg 1 Each Tab) 1 each PO Q6H PRN PRN Reason: Pain Scale 7 - 10 Last Admin: 09/03/23 08:28 Dose: 1 each Artificial Tears (Artificial Tears-Hypromellose Drops 15 Ml Btl) 1 drops BOTH EYES QID PRN PRN Reason: Dry Eye(s) Ascorbic Acid (Ascorbic Acid 500 Mg Tab) 1,000 mg PO DAILY [facility] Last Admin: 09/03/23 08:30 Dose: 1,000 mg Aspirin (Aspirin 81 Mg) 81 mg PO DAILY [facility] Last Admin: 09/03/23 08:30 Dose: 81 mg Bisacodyl (Bisacodyl 10 Mg Supp) 10 mg RECTAL DAILY PRN PRN Reason: Constipation Budesonide/Formoterol Fumarate (Symbicort 160-4.5 Mcg Inhaler) 2 puff INHALATION RT-BID [facility] Last Admin: 09/03/23 09:27 Dose: 2 puff Chlorthalidone (Chlorthalidone 25 Mg Tab) 25 mg PO DAILY [facility] Last Admin: 09/03/23 08:30 Dose: 25 mg Cholecalciferol (Cholecalciferol 125 Mcg (5000 Iu) Tablet) 125 mcg PO DAILY [facility] Last Admin: 09/03/23 08:31 Dose: 125 mcg Cyanocobalamin (Cyanocobalamin 500 Mcg Tab) 500 mcg PO DAILY [facility] Last Admin: 09/03/23 08:30 Dose: 500 mcg Cyclobenzaprine HCl (Cyclobenzaprine 5 Mg Tab) 5 mg PO TID PRN PRN Reason: Muscle Spasm Last Admin: 09/03/23 12:49 Dose: 5 mg Folic Acid (Folic Acid 1 Mg Tab) 1 mg PO DAILY [facility] Last Admin: 09/03/23 08:31 Dose: 1 mg Gabapentin (Gabapentin 300 Mg Cap) 300 mg PO TID [facility] Last Admin: 09/03/23 08:30 Dose: 300 mg Hydralazine HCl (Hydralazine Hcl 20 Mg/Ml 1 Ml Vial) 10 mg IVP Q4HR PRN PRN Reason: Blood Pressure - High Last Admin: 08/30/23 18:14 Dose: 10 mg Hydromorphone HCl (Hydromorphone 0.5 Mg/0.5 Ml Syringe) 0.5 mg IVP Q3HR PRN PRN Reason: Pain Scale 4 - 6 Lactated Ringer's (Lactated Ringers) 1,000 mls @ 20 mls/hr IV .Q24H [facility] Last Admin: 09/03/23 14:22 Dose: Not Given Diltiazem HCl 125 mg/ Sodium (Chloride) 125 mls @ 10 mls/hr IV .[id number] [facility] Last Admin: 09/03/23 14:23 Dose: 10 mg/hr, 10 mls/hr Latanoprost (Latanoprost 0.005% Ophth Drops 2.5 Ml Btl) 1 drops BOTH EYES HS [facility] Last Admin: 09/03/23 02:12 Dose: Not Given Losartan Potassium (Losartan 50 Mg Tab) 100 mg PO HS [facility] Last Admin: 09/02/23 22:18 Dose: Not Given Magnesium Hydroxide (Magnesium Hydroxide 2,400 Mg/30 Ml Cup) 2,400 mg PO DAILY PRN PRN Reason: Constipation Mirtazapine (Mirtazapine 15 Mg Tab) 7.5 mg PO HS [facility] Last Admin: 09/02/23 22:17 Dose: 7.5 mg Nadolol (Nadolol 20 Mg Tab) 40 mg PO DAILY [facility] Last Admin: 09/03/23 08:31 Dose: 40 mg Naloxone HCl (Naloxone 0.4 Mg/Ml 1 Ml Vial) 0.2 mg IV Q2M PRN PRN Reason: Opioid Reversal Ondansetron HCl (Ondansetron 4 Mg/2 Ml Vial) 4 mg IVP Q6HR PRN PRN Reason: Nausea And Vomiting Pantoprazole Sodium (Pantoprazole 40 Mg Tablet) 40 mg PO DAILY [facility] Last Admin: 09/03/23 08:30 Dose: 40 mg Potassium Chloride (Potassium Chloride Er 20 Meq Tab.Er) 20 meq PO DAILY [facility] Last Admin: 09/03/23 08:30 Dose: 20 meq Pramipexole Dihydrochloride (Pramipexole 0.125 Mg Tab) 0.125 mg PO BID [facility] Last Admin: 09/03/23 08:31 Dose: 0.125 mg Pravastatin Sodium (Pravastatin Sodium 40 Mg Tab) 40 mg PO DAILY [facility] Last Admin: 09/03/23 08:30 Dose: 40 mg Prazosin HCl (Prazosin 1 Mg Cap) 2 mg PO TID [facility] Last Admin: 09/03/23 08:32 Dose: 2 mg Prednisone (Prednisone 20 Mg Tab) 40 mg PO DAILY [facility] Last Admin: 09/03/23 08:31 Dose: 40 mg Pyridoxine HCl (Pyridoxine 50 Mg Tab) 100 mg PO DAILY [facility] Last Admin: 09/03/23 13:05 Dose: Not Given Senna/Docusate Sodium (Sennosides-Docusate Sodium 1 Each Tab) 2 each PO DAILY [facility] Last Admin: 09/03/23 08:30 Dose: 2 each Past medical history to include: Asthma, GERD, hyperlipidemia, hypertension, osteoarthritis, paroxysmal atrial fibrillation, varicose veins, stomach ulcer, diverticulitis. Esophagitis, gastritis, internal/external hemorrhoids, watchman procedure, esophagitis, internal hemorrhoids. Right carotid 50-69% stenosis Social history: Does not smoke or drink Cold. Lives alone. Physical examination: VITAL SIGNS: 97.8, 139, 18, 106 x 64, 94% room air GENERAL: Up in a recliner, awake EYES: Pupils equal. Conjunctiva pale. HEENT: External appearance of nose and ears normal, oral cavity grossly normal. Very hard of hearing NECK: Hard collar HEART: Heart sounds regular no edema. LUNGS: Respiratory rate normal, decreased breaths sounds. ABDOMEN: Soft, nontender, liver spleen not palpable, no masses palpable. PSYCH: Able to hold on to a regular conversation. Slight forgetfulness. MUSCULAR skeletal:: Evidence of OA especially in the hands. Dressing over surgical site NEUROLOGICAL: Cranial nerves grossly intact; no facial asymmetry, power fair in all 4 limbs INVESTIGATIONS, reviewed in the clinical context: September 02: White count 14 hemoglobin 11.9 potassium 4.3 creatinine 0.98 September 02, 2023: White count 15.5 hemoglobin 11.5 platelets 182 potassium 3.9 creatinine 0.96 August 30, 2023: White count 9.4 hemoglobin 12.1 platelets 219 sodium 140 potassium 4.2 BUN 24 creatinine 0.82 Troponin I less than 0.012 UA: Negative CT brain without contrast: Unremarkable Cervical spine CT: Mild DJD changes. Compromise of the cervical canal C3-C4, C4-C5, C5-6 6. Multiple foramina encroachment levels. Assessment and plan: -Acute presentation cervical stenosis severe with myelopathy, causing acute quadriparesis: Surgical intervention by Dr. Wilson on September 01, 2023 1. C2-T2 posterolateral instrumented fusion ([id number], [id number]) 2. C2-T2 instrumentation (00147) 3. C2-T1 decompressive laminectomy, partial medial facetectomy and foraminotomy ([id number], [id number]) USE OF IONM Implants: -OSCAR POSTERIOR CERVIAL SYSTEM 5.0. -AUTOGRAFT, MAGNATOS Hard collar -Mild cognitive impairment. [Previous SLUMS examination, was given by the speech therapist. 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 Nonvisualization of the right vertebral artery Baby aspirin. Follow-up with Dr. Mota outpatient -Internal hemorrhoids. - moderate persistent asthma, Symbicort -No chronic kidney disease, -COPD in secondhand smoke exposure Bronchodilators -GERD, on PPI -Hyperlipidemia, on Pravachol -Essential hypertension, verapamil ER, Univasc, nadolol -Primary osteoarthritis, use Tylenol when necessary -Paroxysmal atrial fibrillation, patient got into rapid ventricular rate: New Telemetry. Cardiology consulted. Cardizem drip 10 mg an hour ordered -Chronic Esophagitis and gastritis., On PPI -Very hard of hearing Hearing aids Cardizem drip ordered. Rapid taper of prednisone. Stop after tomorrow. Discussed with Dr. Wilson yesterday. Discussed with patient. Past Medical History Past Medical History: Atrial Fibrillation, Asthma, COPD, GERD/Reflux, GI Bleed, Hyperlipidemia, Hypertension, Osteoarthritis (OA), Pneumonia, Vascular Disorder Additional Past Medical History / Comment(s): [place], Bronchitis, gastric ulcer, diverticular disease, lower GI bleed/AV malformation with ablation, benign colon polyp, borderline hyperlipidemia, arthritis mostly in back, slight bilateral glaucoma, varicosities. History of Any Multi-Drug Resistant Organisms: None Reported Past Surgical History: Adenoidectomy, Appendectomy, Heart Catheterization, Hysterectomy, Tonsillectomy, Tubal Ligation Additional Past Surgical History / Comment(s): Colonoscopy/benign polypectomy/AV malformation ablation, bilateral cataract removals, watchmen procedure Past Anesthesia/Blood Transfusion Reactions: No Reported Reaction Additional Past Anesthesia/Blood Transfusion Reaction / Comment(s): never recieved blood before. Past Psychological History: No Psychological Hx Reported Smoking Status: Never smoker Past Alcohol Use History: None Reported Past Drug Use History: None Reported
[2023-09-04] MEDS: predniSONE 10 MG TAB PO SCH (08:39)
--- NOTE | 2023-09-04 09:33 | P.PN ---
Subjective Progress Note Date: 09/04/23 Principal diagnosis: Generalized weakness Recent falls Cervical kyphosis Moderate cervical stenosis C3-C6 Multilevel cervical neuroforaminal encroachment Dextroconvex scoliosis Moderate to severe right neuroforaminal stenosis L4-S1 Moderate to severe left neuroforaminal stenosis L2L3, L5-S1 Bilateral upper and lower radiculopathy with weakness Complex medical comorbidities Patient seen and examined this morning. Patient has been transferred to due to Afib with RVR. Upon entering room, patient had positioned herself to the edge of the bed. She states that "PT is to be here at 515am and they are late." Staff reports that patient has been confused throughout the night. Bed alarm is activated and a sitter is at bedside. Surgical incision to the posterior cervical spine, dressing is CDI. Hemovac was removed by LISA Grace yesterday after noon. Hard cervical collar is present, this collar is too big for patient and soft cervical collar was ordered yesterday. Soft cervical collar was not delivered to previous or current units, Re-ordered soft collar again today. Patient continues to report mild improvement of her upper extremity radic ulopathy and weakness since the procedure. Continue to encourage patient to be up in chair for all meals and use of the incentive spirometer while awake. Objective - Vital Signs Vital signs: Vital Signs Temp 98.2 F 09/03/23 23:43 Pulse 80 09/04/23 03:21 Resp 20 09/04/23 03:21 BP 121/71 09/04/23 03:21 Pulse Ox 95 09/04/23 03:21 FiO2 Intake & Output 09/03/23 09/04/23 09/04/23 18:59 06:59 18:59 Intake Total 108.167 Balance 108.167 Intake: Intake, IV Titration 108.167 Amount Diltiazem 125 mg In 108.167 Sodium Chloride 0.9% 100 ml @ 10 MG/HR 10 mls/hr IV .[id number] [facility] Rx#: [id number] Other: Voiding Method Bedside Commode External Catheter # Voids 1 2 - Exam General: The patient is awake and alert, in no acute distress Skin: Skin is warm and dry with no obvious rashes or lesions. Surgical incision to the posterior cervical spine, dressing is clean dry and intact. Eye: Pupils are equal, round and reactive to light, extra-ocular movements are intact; there is normal conjunctiva bilaterally. Neck: The neck is supple, there is mild tenderness and limited range of motion due to pain and stiffness from surgical procedure. Hard cervical collar is intact. Cardiovascular: There is a regular rate and rhythm. No murmur, rub or gallop is appreciated. Respiratory: Respirations are non-labored, breath sounds are equal. Gastrointestinal: Soft, non-distended, non-tender abdomen. Back: There is no tenderness to palpation in the midline, paralumbar, parathoracic or buttocks region. There is no obvious deformity. Musculoskeletal: ROM limited secondary to pain and stiffness. Shoulder abduction 4/5, elbow flexors 4/5, wrist dorsiflexors 4/5. finger abductor 4/5, sodium methylate operator 4/5, hip flexor 4/5, knee flexor 4/5, ankle dorsiflexor 3+/5, ankle plantarflexion 3+/5 and extensor hallucis 3+/5. Neurological: CN 2-12 intact. There are no obvious motor or sensory deficits. Movement and coordination equal and intact. Sensory exam to light touch intact C5-T1 and intact from L2-S1. Reflexes 3/4 in bilateral upper and lower extremities. Positive bilateral Hoffmans. Psychiatric: Cooperative, appropriate mood & affect, normal judgment. - Labs CBC & Chem 7: 09/03/23 12:44 09/03/23 12:44 Labs: Abnormal Lab Results - Last 24 Hours (Table) 09/03/23 09/03/23 Range/Units 12:44 12:44 WBC 14.0 H (3.8-10.6) k/uL RBC 3.50 L (3.80-5.40) m/uL MCV 107.5 H (80.0-100.0) fL Carbon Dioxide 31 H (22-30) mmol/L BUN 32 H (7-17) mg/dL Glucose 220 H (74-99) mg/dL Assessment and Plan Assessment: Postop day 3: C2-T2 decompression and fusion Generalized weakness Recent falls Cervical kyphosis Moderate cervical stenosis C3-C6 Multilevel cervical neuroforaminal encroachment Dextroconvex scoliosis Moderate to severe right neuroforaminal stenosis L4-S1 Moderate to severe left neuroforaminal stenosis L2L3, L5-S1 Bilateral upper and lower radiculopathy with weakness Complex medical comorbidities Plan: -Appreciate staff consultant and team management. -Activity: Ambulate QID, OOB all meals, up and about, limit lifting bending twisting to less than 5 lbs. Use walker or cane if needed for stability. -Daily PT/OT, increase ambulation strength and balance. -Cervical collar at all times, may remove for showers. -Order placed for soft cervical collar. -Pain control: Adequate at this time -Meds: reviewed -GI ppx: senna, Miralax -DVT PPX: Heparin -Hygiene: Maintain dressing clean and dry. -Encourage IS 10x/hr -Dispo: Clinically pending. Patient is cleared from an Orthopedic standpoint for discharge to [facility] when medically stable. *I reviewed and discussed this case with my attending Dr. Wilson, whom has reviewed this chart and films and is in agreement with assessment and plan of care as outlined above. I have personally seen and examined the patient, performed the documentation and the assessment and plan as written. Number of minutes spent on the visit: 15m.
[2023-09-04] MEDS: DILTIAZEM CD 120 MG CAP.ER.24H PO SCH (10:16)
--- NOTE | 2023-09-04 10:55 | CA ---
Transthoracic Echo Report Name: Nancy Naqvi Age: 78 Gender: F : 1945 Exam Date: 09/03/2023 18:08 Exam Location: [facility] Ht (in): 61 Wt (lb): 110 Ordering Physician: Bozena Coy Attending/Referring Phys: [id number], Anneliese Flow Specialist Valentine Barry RDCS Procedure CPT: Indications: LVF Cardiac Hx: Technical Quality: Fair Contrast 1: Total Dose (mL): Contrast 2: Total Dose (mL): MEASUREMENTS (Male / Female) Normal Values 2D ECHO LV Diastolic Diameter PLAX 4.0 cm 4.2 - 5.9 / 3.9 - 5.3 cm LV Systolic Diameter PLAX 2.9 cm IVS Diastolic Thickness 1.2 cm 0.6 - 1.0 / 0.6 - 0.9 cm LVPW Diastolic Thickness 1.2 cm 0.6 - 1.0 / 0.6 - 0.9 cm LV Relative Wall Thickness 0.6 RV Internal Dim ED PLAX 2.0 cm LVOT Diameter 2.0 cm LA Volume 41.1 cm??? 18 - 58 / 22 - 52 cm??? LA Volume Index 28.0 cm???/m??? 16 - 28 cm???/m??? Ascending Aorta Diameter 3.3 cm DOPPLER AV Peak Velocity 112.7 cm/s AV Peak Gradient 5.1 mmHg AV Mean Velocity 83.9 cm/s AV Mean Gradient 3.2 mmHg AV Velocity Time Integral 21.0 cm LVOT Peak Velocity 81.6 cm/s LVOT Peak Gradient 2.7 mmHg LVOT Velocity Time Integral 14.3 cm LVOT Stroke Volume 43.0 cm??? LVOT Stroke Volume Index 29.3 ml/m??? LVOT Cardiac Index 3194.4 cm???/min???m??? AV Area Cont Eq vti 2.0 cm??? AV Area Cont Eq pk 2.2 cm??? TR Peak Velocity 212.1 cm/s TR Peak Gradient 18.0 mmHg PV Peak Velocity 86.3 cm/s PV Peak Gradient 3.0 mmHg FINDINGS Left Ventricle Left ventricular ejection fraction is estimated at 55-60 %. Normal left ventricular systolic function with no obvious regional wall motion abnormalities. Mildly increased left ventricular wall thickness. . Left ventricular cavity size normal. No obvious regional wall motion abnormalities. Right Ventricle Normal right ventricular size with mildly reduced function. Unable to estimate the right ventricular systolic pressure. Right Atrium Normal right atrial size. Left Atrium Normal left atrial size. Mitral Valve Structurally normal mitral valve. No mitral stenosis. No evidence for mitral valve prolapse. Trace mitral regurgitation.mitral annular calcification. Aortic Valve Aortic valve not well visualized. No aortic valve stenosis or regurgitation. Tricuspid Valve Structurally normal tricuspid valve. No tricuspid stenosis. Mild tricuspid regurgitation. Pulmonic Valve Pulmonic valve not well visualized. No pulmonic stenosis. Trace pulmonic regurgitation. Pericardium No pericardial effusion. Aorta Normal size aortic root and proximal ascending aorta. CONCLUSIONS 1. Normal left ventricular size and systolic function 2. Mild tricuspid regurgitation with trace mitral regurgitation Previewed by: Dr. Dominic Rowell MD (Electronically Signed) Final Date: 04 Sep 2023 10:54
--- NOTE | 2023-09-04 10:57 | P.PN ---
Subjective Progress Note Date: 09/03/23 Patient was seen for a follow-up. Patient's granddaughter was present. Patient has significant neck pain. Family reported that patient did not receive any pain medication from 3:30 PM yesterday until 9 AM this morning, and she was crying in pain. Although on reviewing medical records, patient has as needed order written for [place], Dilaudid since 09/01/2023. Family reports that Dilaudid produces hallucinations. She is also on gabapentin 300 mg 3 times daily since 08/31/2023. Patient has developed new onset atrial fibrillation last night. She was transferred to [facility]. She does have history of atrial fibrillation but was in remission until recently came back. Patient underwent following procedure on 09/01/2023: 1. C2-T2 posterolateral instrumented fusion (04344, [id number]) 2. C2-T2 instrumentation (29043) 3. C2-T1 decompressive laminectomy, partial medial facetectomy and foraminotomy (82348, [id number]) USE OF IONM Objective - Vital Signs Vital signs: Vital Signs Temp 97.8 F 09/03/23 13:54 Pulse 122 H 09/03/23 16:09 Resp 18 09/03/23 16:09 BP 110/81 09/03/23 16:09 Pulse Ox 94 L 09/03/23 16:09 FiO2 Intake & Output 09/02/23 09/03/23 09/03/23 18:59 06:59 18:59 Output Total 80 Balance -80 Output: Drainage 80 Posterior Neck 80 Other: Voiding Method Bedside Commode # Voids 3 1 - Exam Patient's mental status, speech and language functions are normal. Cranial nerves are normal. On muscle strength testing, (right/left) deltoid 4/4, biceps 5-/4+, triceps 5/5, sde 4+/4+, hip flexion 3+4-/3+4-, ankle dorsiflexion 5/5. - Labs CBC & Chem 7: 09/03/23 12:44 09/03/23 12:44 Labs: Abnormal Lab Results - Last 24 Hours (Table) 09/03/23 09/03/23 Range/Units 12:44 12:44 WBC 14.0 H (3.8-10.6) k/uL RBC 3.50 L (3.80-5.40) m/uL MCV 107.5 H (80.0-100.0) fL Carbon Dioxide 31 H (22-30) mmol/L BUN 32 H (7-17) mg/dL Glucose 220 H (74-99) mg/dL Assessment and Plan Assessment: * Cervical spinal stenosis with cervical myelopathy noted on MRI of the cervical spine. Patient presented acutely with neck pain, numbness of the hands and d ifficulty walking. Patient has some bowel urgency but no incontinence of bowels or bladder. * Status post decompressive surgery 09/01/2023. Patient underwent 1. C2-T2 posterolateral instrumented fusion (83217, [id number]) 2. C2-T2 instrumentation (63610) 3. C2-T1 decompressive laminectomy, partial medial facetectomy and foraminotomy (88726, 50438a6) USE OF IONM * Hard of hearing * Paroxysmal atrial fibrillation, status post Watchman device at [place] on 05/27/2020. Patient has recurrence of atrial fibrillation since last night. * History of GI bleed * Chronic renal disease * COPD * Hypertension * History of left ICA stenosis, follows with Dr. Dumont, currently on aspirin * History of mild B12, folate and B6 borderline levels, on replacement Plan: * Cervical spine MRI revealed severe degeneration changes with severe spinal canal stenosis from C3-C4 through C6-C7 with severe neural foraminal stenosis bilaterally. Evidence of myelomalacia at the level of C3-C4. I personally reviewed MRI of the cervical spine, agree with the findings. * Patient is status post decompressive cervical spinal surgery 08/31/2013. * DVT prophylaxis: Will defer to IM/orthopedic surgery. * Patient has history of atrial fibrillation, status post Watchman device. Patient has developed recurrence of atrial fibrillation last night. Patient on aspirin 81 mg daily, and Cardizem drip. Management of A-fib as per cardiology. * Pain control, as per orthopedic spine. * Neurologically clear for transfer to rehab.
--- NOTE | 2023-09-04 11:57 | P.PN ---
Subjective HISTORY OF PRESENT ILLNESS: This is a 78-year-old female patient of Dr. Jorje Mckee with past medical history of paroxysmal atrial fibrillation status post watchman procedure, COPD, hypertension, hyperlipidemia, and previous GI bleed, history of pulmonary embolism status post IVC filter placement in 2020. Patient has significant hearing loss and reads her daughter's lips to communicate. Patient was admitted to the hospital on 08/30 after she presented with generalized weakness and falls and cervical pain. She underwent workup for the cervical spine and lumbar spine and found to have multilevel cervical neuroforaminal encroachment and cervical stenosis. On 08/31, patient underwent C2-T2 fusion, decompression laminectomy and partial medial facetectomy and foraminotomy. We have been asked to evaluate the patient for A-fib with RVR. Patient apparently has been in significant pain all night did not receive any pain medications since yesterday. Daughter gives history that she has had trouble with her blood pressure being out of control running around 200/100. She underwent trigger point injections by Dr. Aparicio at Dr. Mcguire's office thinking that pain was causing her blood pressure to be out of control. She unfortunately had continued hypertension despite the treatment. She was last seen in the office with Dr. Jorje Mckee on 07/25 at which time patient was started on losartan. Blood pressure has been elevated during this hospital ization but improved this morning 132/78. Patient denies having any palpitations, no shortness of breath no chest pain or chest pressure, no dizziness or lightheadedness. Daughter states she did have some lower extremity edema but none now. No cough no fever or chills. No blood in her stools or urine. EKG A-fib with RVR 148 bpm Chest x-ray: No acute process irregular WBC 15.5, hemoglobin 11.5. Sodium 136, potassium 3.9, BUN 34 creatinine 0.96. Troponin negative x 1 on 08/29. Home cardiac medications: Aspirin 81 mg daily, losartan 100 mg at bedtime, nadolol 40 mg daily, potassium chloride 20 mill equivalents daily, pravastatin 40 mg daily. Echocardiogram performed on 11/23/2022 revealed EF of 55 to 60%. Technically suboptimal and limited echocardiogram. Bubble study was negative for r [id number] shunt. Patient underwent Lexiscan stress test in August 2018 which was negative for revers ible ischemia 09/04/2023 Patient examined this morning at the bedside. Patient is sitting up in the chair. Patient is very hard of hearing. Patient denies chest pain or pressure. She denies shortness of breath. Telemetry reveals atrial fibrillation with controlled ventricular rate. She remains on IV Cardizem. PHYSICAL EXAM: VITAL SIGNS: Reviewed. GENERAL: Well-developed in no acute distress. NECK: Supple. No JVD or thyromegaly. Cervical collar noted. LUNGS: Respirations even and unlabored. Lungs essentially clear to auscultation bilaterally. HEART: Irregular rate and rhythm. S1 and S2 heard. EXTREMITIES: Normal range of motion. No clubbing or cyanosis. Peripheral pulses intact. No lower extremity edema ASSESSMENT: Status post spinal surgery Paroxysmal atrial fibrillation status post watchman procedure at [place] 05/2020, currently RVR COPD Hypertension Hyperlipidemia History of GI bleed Pulmonary embolism status post IVC filter placement PLAN: Discontinue IV Cardizem Begin Cardizem CD 120 mg daily Continue additional cardiac medications Continue telemetry monitoring Further recommendations pending patient course Nurse practitioner note has been reviewed by physician. Signing provider agrees with the documented findings, assessment, and plan of care documented by [facility] as a scribe. Objective - Vital Signs Vital signs: Vital Signs Temp 97.8 F 09/04/23 08:00 Pulse 63 09/04/23 08:00 Resp 16 09/04/23 08:00 BP 122/67 09/04/23 08:00 Pulse Ox 95 09/04/23 08:00 FiO2 Intake & Output 09/03/23 09/04/23 09/04/23 18:59 06:59 18:59 Intake Total 108.167 Balance 108.167 Intake: Intake, IV Titration 108.167 Amount Diltiazem 125 mg In 108.167 Sodium Chloride 0.9% 100 ml @ 10 MG/HR 10 mls/hr IV .[id number] [facility] Rx#: [id number] Other: Voiding Method Bedside Commode External Catheter Bedside Commode Diaper # Voids 1 2 - Labs CBC & Chem 7: 09/03/23 12:44 09/03/23 12:44 Labs: Abnormal Lab Results - Last 24 Hours (Table) 09/03/23 09/03/23 Range/Units 12:44 12:44 WBC 14.0 H (3.8-10.6) k/uL RBC 3.50 L (3.80-5.40) m/uL MCV 107.5 H (80.0-100.0) fL Carbon Dioxide 31 H (22-30) mmol/L BUN 32 H (7-17) mg/dL Glucose 220 H (74-99) mg/dL
[2023-09-04] MEDS: ACETAMINOPHEN TAB 500 MG TAB PO SCH (16:19)
--- NOTE | 2023-09-04 16:30 | P.PN ---
Progress Note - Text Progress Note Date: 09/04/23 Chief Complaint: Weakness in all 4 limbs very pleasant 78-year-old patient of Dr. Zbigniew Gary. Chronic stable medical conditions include GERD, hyperlipidemia, hypertension, osteoarthritis, paroxysmal atrial fibrillation, varicose veins, diverticulosis. very hard of hearing and does lipreading. watchman procedure done by Dr. Concepcion at [facility] on 05/2020.. July 2022. [With altered mental status.] MRI/EEG/neurological work was unremarkable. Carotid Doppler showed 50-69% on the left ICA. Nonvisualization of the right vertebral artery. Patient was placed on aspirin and was to follow- up with Dr. Mota from vascular.SLUMS-examination suggestive of dementia.-Not severe. Patient has chronic left eye ptosis and left nasolabial weakening. Patient normally able to get about. Yesterday morning patient felt some pain in the neck. Let it go. Later she went to lie down. When she tried to get up she really could not get up and fell down. She had to crawl. [place] weak in all the limbs. She called up her daughter. Denies any change in vision no change in speech. No involvement of bowel or bladder. More weak on the right side. Still not able to get out of bed. September 01, 2023: Patient underwent cervical spine/thoracic spine surgery by Dr. Wilson this morning. Patient having significant pain. Has a neck support in place. Family at the bedside. Blood pressure likely elevated because of pain. Minipress was increased yesterday. September 02, 2023: Sitting up in a recliner. Hard collar in place. Pain is present. Handgrip is fair. Patient daughter in the room. Decreased oral intake. Add Ensure. Leukocytosis from steroids. September 03, 2023: Reclining in bed. Pain better. Hard collar remains in place. Went into A-fib uncontrolled. Cardiology was consulted. Ordered Cardizem drip. Power is fair in all the 4 limbs September 04, 2023: Reclining bed. Was confused overnight. Was pulling out wires. Will try small dose of Seroquel tonight. A-fib controlled. On Cardizem drip. Decreased oral intake. Active Medications Acetaminophen (Acetaminophen Tab 500 Mg Tab) 1,000 mg PO TID RIGOBERTO Last Admin: 09/04/23 16:19 Dose: 1,000 mg Hydrocodone Bitart/Acetaminophen (Hydrocodone/Apap 5-325mg 1 Each Tab) 1 each PO Q4HR PRN PRN Reason: Pain Scale 4 - 6 Last Admin: 09/04/23 13:10 Dose: 1 each Hydrocodone Bitart/Acetaminophen (Hydrocodone/Apap 10-325mg 1 Each Tab) 1 each PO Q6H PRN PRN Reason: Pain Scale 7 - 10 Last Admin: 09/03/23 16:17 Dose: 1 each Artificial Tears (Artificial Tears-Hypromellose Drops 15 Ml Btl) 1 drops BOTH EYES QID PRN PRN Reason: Dry Eye(s) Ascorbic Acid (Ascorbic Acid 500 Mg Tab) 1,000 mg PO DAILY [facility] Last Admin: 09/04/23 08:38 Dose: 1,000 mg Aspirin (Aspirin 81 Mg) 81 mg PO DAILY [facility] Last Admin: 09/04/23 08:38 Dose: 81 mg Bisacodyl (Bisacodyl 10 Mg Supp) 10 mg RECTAL DAILY PRN PRN Reason: Constipation Budesonide/Formoterol Fumarate (Symbicort 160-4.5 Mcg Inhaler) 2 puff INHALATION RT-BID [facility] Last Admin: 09/04/23 09:02 Dose: 2 puff Chlorthalidone (Chlorthalidone 25 Mg Tab) 25 mg PO DAILY [facility] Last Admin: 09/04/23 08:40 Dose: 25 mg Cholecalciferol (Cholecalciferol 125 Mcg (5000 Iu) Tablet) 125 mcg PO DAILY [facility] Last Admin: 09/04/23 08:39 Dose: 125 mcg Cyanocobalamin (Cyanocobalamin 500 Mcg Tab) 500 mcg PO DAILY [facility] Last Admin: 09/04/23 08:38 Dose: 500 mcg Cyclobenzaprine HCl (Cyclobenzaprine 5 Mg Tab) 5 mg PO TID PRN PRN Reason: Muscle Spasm Last Admin: 09/04/23 16:19 Dose: 5 mg Diltiazem HCl (Diltiazem Cd 120 Mg Cap.Er.24h) 120 mg PO DAILY [facility] Last Admin: 09/04/23 10:16 Dose: 120 mg Folic Acid (Folic Acid 1 Mg Tab) 1 mg PO DAILY [facility] Last Admin: 09/04/23 08:39 Dose: 1 mg Hydromorphone HCl (Hydromorphone 0.5 Mg/0.5 Ml Syringe) 0.5 mg IVP Q3HR PRN PRN Reason: Pain Scale 4 - 6 Lactated Ringer's (Lactated Ringers) 1,000 mls @ 20 mls/hr IV .Q24H [facility] Last Admin: 09/04/23 08:52 Dose: Not Given Latanoprost (Latanoprost 0.005% Ophth Drops 2.5 Ml Btl) 1 drops BOTH EYES HS [facility] Last Admin: 09/03/23 21:44 Dose: Not Given Losartan Potassium (Losartan 50 Mg Tab) 100 mg PO HS [facility] Last Admin: 09/03/23 20:24 Dose: Not Given Magnesium Hydroxide (Magnesium Hydroxide 2,400 Mg/30 Ml Cup) 2,400 mg PO DAILY PRN PRN Reason: Constipation Mirtazapine (Mirtazapine 15 Mg Tab) 7.5 mg PO HS [facility] Last Admin: 09/03/23 21:45 Dose: Not Given Nadolol (Nadolol 20 Mg Tab) 40 mg PO DAILY [facility] Last Admin: 09/04/23 08:42 Dose: 40 mg Naloxone HCl (Naloxone 0.4 Mg/Ml 1 Ml Vial) 0.2 mg IV Q2M PRN PRN Reason: Opioid Reversal Ondansetron HCl (Ondansetron 4 Mg/2 Ml Vial) 4 mg IVP Q6HR PRN PRN Reason: Nausea And Vomiting Pantoprazole Sodium (Pantoprazole 40 Mg Tablet) 40 mg PO DAILY [facility] Last Admin: 09/04/23 08:38 Dose: 40 mg Potassium Chloride (Potassium Chloride Er 20 Meq Tab.Er) 20 meq PO DAILY [facility] Last Admin: 09/04/23 08:40 Dose: 20 meq Pramipexole Dihydrochloride (Pramipexole 0.125 Mg Tab) 0.125 mg PO BID [facility] Last Admin: 09/04/23 08:40 Dose: 0.125 mg Pravastatin Sodium (Pravastatin Sodium 40 Mg Tab) 40 mg PO DAILY [facility] Last Admin: 09/04/23 08:38 Dose: 40 mg Prazosin HCl (Prazosin 1 Mg Cap) 2 mg PO TID [facility] Last Admin: 09/04/23 16:19 Dose: 2 mg Pyridoxine HCl (Pyridoxine 50 Mg Tab) 100 mg PO DAILY [facility] Last Admin: 09/04/23 08:41 Dose: 100 mg Quetiapine Fumarate (Quetiapine 25 Mg Tab) 12.5 mg PO HS [facility] Senna/Docusate Sodium (Sennosides-Docusate Sodium 1 Each Tab) 2 each PO DAILY [facility] Last Admin: 09/04/23 08:38 Dose: 2 each Past medical history to include: Asthma, GERD, hyperlipidemia, hypertension, osteoarthritis, paroxysmal atrial fibrillation, varicose veins, stomach ulcer, diverticulitis. Esophagitis, gastritis, internal/external hemorrhoids, watchman procedure, esophagitis, internal hemorrhoids. Right carotid 50-69% stenosis Social history: Does not smoke or drink Cold. Lives alone. Physical examination: VITAL SIGNS: 97.8, 105, 16, 105 x 80, 93% room air GENERAL: Lying in bed, awake EYES: Pupils equal. Conjunctiva pale. HEENT: External appearance of nose and ears normal, oral cavity grossly normal. Very hard of hearing NECK: Hard collar HEART: Heart sounds regular no edema. LUNGS: Respiratory rate normal, decreased breaths sounds. ABDOMEN: Soft, nontender, liver spleen not palpable, no masses palpable. PSYCH: Able to hold on to a regular conversation. Slight forgetfulness. MUSCULAR skeletal:: Evidence of OA especially in the hands. Dressing over surgical site NEUROLOGICAL: Cranial nerves grossly intact; no facial asymmetry, power fair in all 4 limbs INVESTIGATIONS, reviewed in the clinical context: September 02: White count 14 hemoglobin 11.9 potassium 4.3 creatinine 0.98 September 02, 2023: White count 15.5 hemoglobin 11.5 platelets 182 potassium 3.9 creatinine 0.96 August 30, 2023: White count 9.4 hemoglobin 12.1 platelets 219 sodium 140 potassium 4.2 BUN 24 creatinine 0.82 Troponin I less than 0.012 UA: Negative CT brain without contrast: Unremarkable Cervical spine CT: Mild DJD changes. Compromise of the cervical canal C3-C4, C4-C5, C5-6 6. Multiple foramina encroachment levels. Assessment and plan: -Acute presentation cervical stenosis severe with myelopathy, causing acute quadriparesis: Surgical intervention by Dr. Wilson on September 01, 2023 1. C2-T2 posterolateral instrumented fusion (54252, [id number]) 2. C2-T2 instrumentation (56905) 3. C2-T1 decompressive laminectomy, partial medial facetectomy and foraminotomy ([id number], [id number]) USE OF IONM Implants: -OSCAR POSTERIOR CERVIAL SYSTEM 5.0. -AUTOGRAFT, MAGNATOS Hard collar -Mild cognitive impairment. [Previous SLUMS examination, was given by the speech therapist. 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 Nonvisualization of the right vertebral artery Baby aspirin. Follow-up with Dr. Moat outpatient -Internal hemorrhoids. - moderate persistent asthma, Symbicort -No chronic kidney disease, -COPD in secondhand smoke exposure Bronchodilators -Acute delirium possibly from pain medications overnight. Try Seroquel 25 mg nightly. Stop mirtazapine -GERD, on PPI -Hyperlipidemia, on Pravachol -Essential hypertension, Cardizem CD 120 mg, Cozaar 100 mg nightly, nadolol 40 mg -Primary osteoarthritis, use Tylenol when necessary -Paroxysmal atrial fibrillation, patient got into rapid ventricular rate: New Telemetry. Cardiology consulted. Cardizem drip changed over to Cardizem CD 120 mg a day. -Chronic Esophagitis and gastritis., On PPI -Very hard of hearing Hearing aids Cardizem drip changed over to Cardizem CD.. Seroquel 25 mg nightly. DC Dilaudid. Stop mirtazapine Past Medical History Past Medical History: Atrial Fibrillation, Asthma, COPD, GERD/Reflux, GI Bleed, Hyperlipidemia, Hypertension, Osteoarthritis (OA), Pneumonia, Vascular Disorder Additional Past Medical History / Comment(s): [place], Bronchitis, gastric ulcer, diverticular disease, lower GI bleed/AV malformation with ablation, benign colon polyp, borderline hyperlipidemia, arthritis mostly in back, slight bilateral glaucoma, varicosities. History of Any Multi-Drug Resistant Organisms: None Reported Past Surgical History: Adenoidectomy, Appendectomy, Heart Catheterization, Hysterectomy, Tonsillectomy, Tubal Ligation Additional Past Surgical History / Comment(s): Colonoscopy/benign polypectomy/AV malformation ablation, bilateral cataract removals, watchmen procedure Past Anesthesia/Blood Transfusion Reactions: No Reported Reaction Additional Past Anesthesia/Blood Transfusion Reaction / Comment(s): never recieved blood before. Past Psychological History: No Psychological Hx Reported Smoking Status: Never smoker Past Alcohol Use History: None Reported Past Drug Use History: None Reported
[2023-09-04] MEDS: PANTOPRAZOLE 40 MG TABLET PO SCH (17:13)
[2023-09-04] MEDS: QUEtiapine 25 MG TAB PO SCH (20:02)
[2023-09-04] MEDS: NAPROXEN 250 MG TAB PO SCH (20:02)
[2023-09-04] MEDS ORDERED: QUEtiapine 25 MG TAB PO SCH (21:00)
--- NOTE | 2023-09-05 09:07 | P.PN ---
Subjective Progress Note Date: 09/05/23 Principal diagnosis: Generalized weakness Recent falls Cervical kyphosis Moderate cervical stenosis C3-C6 Multilevel cervical neuroforaminal encroachment Dextroconvex scoliosis Moderate to severe right neuroforaminal stenosis L4-S1 Moderate to severe left neuroforaminal stenosis L2L3, L5-S1 Bilateral upper and lower radiculopathy with weakness Complex medical comorbidities Patient seen and examined this morning. Upon entering room patient was on bedside commode. Assisted patient to chair at bedside x 1 assist. Patient will benefit from walker in room. Informed patient that physical therapy should be in to work with her today. Patient should be up to the chair for all meals. Surgical incision to the posterior cervical spine, dressing is clean dry and intact. Soft cervical collar is in place. Progressing well since surgery. Objective - Vital Signs Vital signs: Vital Signs Temp 97.7 F 09/04/23 20:00 Pulse 138 H 09/05/23 04:00 Resp 18 09/05/23 04:00 BP 127/84 09/05/23 04:00 Pulse Ox 97 09/05/23 04:00 FiO2 Intake & Output 09/04/23 09/05/23 09/05/23 18:59 06:59 18:59 Intake Total 118 Output Total 600 Balance -482 Intake: Oral 118 Output: Urine 600 Other: Voiding Method Bedside Commode Bedside Commode Diaper Diaper # Voids 2 1 - Exam General: The patient is awake and alert, in no acute distress Skin: Skin is warm and dry with no obvious rashes or lesions. Surgical incision to the posterior cervical spine, dressing is clean dry and intact. Eye: Pupils are equal, round and reactive to light, extra-ocular movements are intact; there is normal conjunctiva bilaterally. Neck: The neck is supple, there is mild tenderness and limited range of motion due to pain and stiffness from surgical procedure. Soft cervical collar is intact. Cardiovascular: There is a regular rate and rhythm. No murmur, rub or gallop is appreciated. Respiratory: Respirations are non-labored, breath sounds are equal. Gastrointestinal: Soft, non-distended, non-tender abdomen. Back: There is no tenderness to palpation in the midline, paralumbar, parathoracic or buttocks region. There is no obvious deformity. Musculoskeletal: ROM limited secondary to pain and stiffness. Shoulder abduction 4/5, elbow flexors 4/5, wrist dorsiflexors 4/5. finger abductor 4/5, pick up 4/5, hip flexor 4/5, knee flexor 4/5, ankle dorsiflexor 4/5, ankle plantarflexion 4/5 and extensor hallucis 4/5. Neurological: CN 2-12 intact. There are no obvious motor or sensory deficits. Movement and coordination equal and intact. Sensory exam to light touch intact C5-T1 and intact from L2-S1. Reflexes 3/4 in bilateral upper and lower extrem ities. Positive bilateral Hoffmans. Psychiatric: Cooperative, appropriate mood & affect, normal judgment. - Labs CBC & Chem 7: 09/03/23 12:44 09/03/23 12:44 Assessment and Plan Assessment: Postop day 4: C2-T2 decompression and fusion Generalized weakness Recent falls Cervical kyphosis Moderate cervical stenosis C3-C6 Multilevel cervical neuroforaminal encroachment Dextroconvex scoliosis Moderate to severe right neuroforaminal stenosis L4-S1 Moderate to severe left neuroforaminal stenosis L2L3, L5-S1 Bilateral upper and lower radiculopathy with weakness Complex medical comorbidities Plan: -Appreciate creative consultant and team management. -Activity: Ambulate QID, OOB all meals, up and about, limit lifting bending twisting to less than 5 lbs. Use walker or cane if needed for stability. -Daily PT/OT, increase ambulation strength and balance. -Cervical collar at all times, may remove for showers. -Pain control: Adequate at this time -Meds: reviewed -GI ppx: senna, Miralax -DVT PPX: Heparin -Hygiene: Maintain dressing clean and dry. -Encourage IS 10x/hr -Dispo: Clinically pending. Patient is cleared from an Orthopedic standpoint for discharge to [facility] when medically stable. *I reviewed and discussed this case with my attending Dr. Wilson, whom has reviewed this chart and films and is in agreement with assessment and plan of care as outlined above. I have personally seen and examined the patient, performed the documentation and the assessment and plan as written. Number of minutes spent on the visit: 15m.
[2023-09-05] MEDS: METOPROLOL TARTRATE 50 MG TAB PO SCH (09:26)
[2023-09-05] MEDS: DILTIAZEM ORAL 60 MG TAB PO SCH (09:27)
--- NOTE | 2023-09-05 10:55 | P.PN ---
Subjective HISTORY OF PRESENT ILLNESS: This is a 78-year-old female patient of Dr. Jorje Mckee with past medical history of paroxysmal atrial fibrillation status post watchman procedure, COPD, hypertension, hyperlipidemia, and previous GI bleed, history of pulmonary embolism status post IVC filter placement in 2020. Patient has significant hearing loss and reads her daughter's lips to communicate. Patient was admitted to the hospital on 08/30 after she presented with generalized weakness and falls and cervical pain. She underwent workup for the cervical spine and lumbar spine and found to have multilevel cervical neuroforaminal encroachment and cervical stenosis. On 08/31, patient underwent C2-T2 fusion, decompression laminectomy and partial medial facetectomy and foraminotomy. We have been asked to evaluate the patient for A-fib with RVR. Patient apparently has been in significant pain all night did not receive any pain medications since yesterday. Daughter gives history that she has had trouble with her blood pressure being out of control running around 200/100. She underwent trigger point injections by Dr. Aparicio at Dr. Mcguire's office thinking that pain was causing her blood pressure to be out of control. She unfortunately had continued hypertension despite the treatment. She was last seen in the office with Dr. Jorje Mckee on 07/25 at which time patient was started on losartan. Blood pressure has been elevated during this hospital ization but improved this morning 132/78. Patient denies having any palpitations, no shortness of breath no chest pain or chest pressure, no dizziness or lightheadedness. Daughter states she did have some lower extremity edema but none now. No cough no fever or chills. No blood in her stools or urine. EKG A-fib with RVR 148 bpm Chest x-ray: No acute process irregular WBC 15.5, hemoglobin 11.5. Sodium 136, potassium 3.9, BUN 34 creatinine 0.96. Troponin negative x 1 on 08/29. Home cardiac medications: Aspirin 81 mg daily, losartan 100 mg at bedtime, nadolol 40 mg daily, potassium chloride 20 mill equivalents daily, pravastatin 40 mg daily. Echocardiogram performed on 11/23/2022 revealed EF of 55 to 60%. Technically suboptimal and limited echocardiogram. Bubble study was negative for r [id number] shunt. Patient underwent Lexiscan stress test in August 2018 which was negative for revers ible ischemia 09/04/2023 Patient examined this morning at the bedside. Patient is sitting up in the chair. Patient is very hard of hearing. Patient denies chest pain or pressure. She denies shortness of breath. Telemetry reveals atrial fibrillation with controlled ventricular rate. She remains on IV Cardizem. 09/05/2023 Patient examined this morning. Patient is sitting up in the chair. Patient denies chest pain or pressure. She denies shortness of breath. Telemetry reveals atrial fibrillation with a heart rate in the 130s. PHYSICAL EXAM: VITAL SIGNS: Reviewed. GENERAL: Well-developed in no acute distress. NECK: Supple. No JVD or thyromegaly. Cervical collar noted. LUNGS: Respirations even and unlabored. Lungs essentially clear to auscultation bilaterally. HEART: Tachycardic. Irregular rate and rhythm. S1 and S2 heard. EXTREMITIES: Normal range of motion. No clubbing or cyanosis. Peripheral pulses intact. No lower extremity edema ASSESSMENT: Status post spinal surgery Paroxysmal atrial fibrillation status post watchman procedure at [facility] 05/2020, currently RVR COPD Hypertension Hyperlipidemia History of GI bleed Pulmonary embolism status post IVC filter placement PLAN: Discontinue Cardizem CD. Begin oral Cardizem 60 mg 3 times daily Increase metoprolol to 50 mg BID Continue additional cardiac medications Continue telemetry monitoring Further recommendations pending patient course Nurse practitioner note has been reviewed by physician. Signing provider agrees with the documented findings, assessment, and plan of care documented by PRODUCTION ENGINEER TRACK as a scribe. Objective - Vital Signs Vital signs: Vital Signs Temp 97.7 F 09/04/23 20:00 Pulse 138 H 09/05/23 04:00 Resp 18 09/05/23 04:00 BP 127/84 09/05/23 04:00 Pulse Ox 97 09/05/23 04:00 FiO2 Intake & Output 09/04/23 09/05/23 09/05/23 18:59 06:59 18:59 Intake Total 118 Output Total 600 Balance -482 Intake: Oral 118 Output: Urine 600 Other: Voiding Method Bedside Commode Bedside Commode Diaper Diaper # Voids 2 1 # Bowel Movements 2 - Labs CBC & Chem 7: 09/03/23 12:44 09/03/23 12:44
[2023-09-05 11:12] VITALS: RESP 16
--- NOTE | 2023-09-05 16:32 | P.PN ---
Progress Note - Text Progress Note Date: 09/05/23 Chief Complaint: Weakness in all 4 limbs very pleasant 78-year-old patient of Dr. Zbigniew Gary. Chronic stable medical conditions include GERD, hyperlipidemia, hypertension, osteoarthritis, paroxysmal atrial fibrillation, varicose veins, diverticulosis. very hard of hearing and does lipreading. watchman procedure done by Dr. Concepcion at [facility] on 05/2020.. July 2022. [With altered mental status.] MRI/EEG/neurological work was unremarkable. Carotid Doppler showed 50-69% on the left ICA. Nonvisualization of the right vertebral artery. Patient was placed on aspirin and was to follow- up with Dr. Mota from vascular.SLUMS-examination suggestive of dementia.-Not severe. Patient has chronic left eye ptosis and left nasolabial weakening. Patient normally able to get about. Yesterday morning patient felt some pain in the neck. Let it go. Later she went to lie down. When she tried to get up she really could not get up and fell down. She had to crawl. Caspian weak in all the limbs. She called up her daughter. Denies any change in vision no change in speech. No involvement of bowel or bladder. More weak on the right side. Still not able to get out of bed. September 01, 2023: Patient underwent cervical spine/thoracic spine surgery by Dr. Wilson this morning. Patient having significant pain. Has a neck support in place. Family at the bedside. Blood pressure likely elevated because of pain. Minipress was increased yesterday. September 02, 2023: Sitting up in a recliner. Hard collar in place. Pain is present. Handgrip is fair. Patient daughter in the room. Decreased oral intake. Add Ensure. Leukocytosis from steroids. September 03, 2023: Reclining in bed. Pain better. Hard collar remains in place. Went into A-fib uncontrolled. Cardiology was consulted. Ordered Cardizem drip. Power is fair in all the 4 limbs September 04, 2023: Reclining bed. Was confused overnight. Was pulling out wires. Will try small dose of Seroquel tonight. A-fib controlled. On Cardizem drip. Decreased oral intake. September 05, 2023: Patient given Seroquel last night. Delirium resolved. Daughter at the bedside. Some pain at the operative site. Eating okay. Still weak in the legs. Heart rate uncontrolled. In 130s. Patient being switched over to Cardizem 60 mg p.o. 3 times daily. Cardizem CD discontinued. Metoprolol increased to 50 mg twice daily by cardiology. Hold discharge until heart rate better controlled. Care was discussed at length with the patient and daughter at the bedside. Questions answered. Soft collar Active Medications Acetaminophen (Acetaminophen Tab 500 Mg Tab) 1,000 mg PO TID [facility] Last Admin: 09/05/23 09:26 Dose: 1,000 mg Hydrocodone Bitart/Acetaminophen (Hydrocodone/Apap 5-325mg 1 Each Tab) 1 each PO Q4HR PRN PRN Reason: Pain Scale 4 - 6 Last Admin: 09/04/23 13:10 Dose: 1 each Hydrocodone Bitart/Acetaminophen (Hydrocodone/Apap 10-325mg 1 Each Tab) 1 each PO Q6H PRN PRN Reason: Pain Scale 7 - 10 Last Admin: 09/05/23 15:13 Dose: 1 each Artificial Tears (Artificial Tears-Hypromellose Drops 15 Ml Btl) 1 drops BOTH EYES QID PRN PRN Reason: Dry Eye(s) Ascorbic Acid (Ascorbic Acid 500 Mg Tab) 1,000 mg PO DAILY [facility] Last Admin: 09/05/23 09:27 Dose: 1,000 mg Aspirin (Aspirin 81 Mg) 81 mg PO DAILY [facility] Last Admin: 09/05/23 09:25 Dose: 81 mg Bisacodyl (Bisacodyl 10 Mg Supp) 10 mg RECTAL DAILY PRN PRN Reason: Constipation Budesonide/Formoterol Fumarate (Symbicort 160-4.5 Mcg Inhaler) 2 puff INHALATION RT-BID [facility] Last Admin: 09/05/23 08:30 Dose: 2 puff Cholecalciferol (Cholecalciferol 125 Mcg (5000 Iu) Tablet) 125 mcg PO DAILY [facility] Last Admin: 09/05/23 09:27 Dose: 125 mcg Cyanocobalamin (Cyanocobalamin 500 Mcg Tab) 500 mcg PO DAILY [facility] Last Admin: 09/05/23 09:25 Dose: 500 mcg Cyclobenzaprine HCl (Cyclobenzaprine 5 Mg Tab) 5 mg PO TID PRN PRN Reason: Muscle Spasm Last Admin: 09/05/23 11:42 Dose: 5 mg Diltiazem HCl (Diltiazem Oral 60 Mg Tab) 60 mg PO TID [facility] Last Admin: 09/05/23 09:27 Dose: 60 mg Folic Acid (Folic Acid 1 Mg Tab) 1 mg PO DAILY [facility] Last Admin: 09/05/23 09:25 Dose: 1 mg Lactated Ringer's (Lactated Ringers) 1,000 mls @ 20 mls/hr IV .Q24H [facility] Last Admin: 09/05/23 09:28 Dose: Not Given Latanoprost (Latanoprost 0.005% Ophth Drops 2.5 Ml Btl) 1 drops BOTH EYES HS [facility] Last Admin: 09/04/23 20:01 Dose: 1 drops Losartan Potassium (Losartan 50 Mg Tab) 100 mg PO HS [facility] Last Admin: 09/04/23 20:02 Dose: 100 mg Magnesium Hydroxide (Magnesium Hydroxide 2,400 Mg/30 Ml Cup) 2,400 mg PO DAILY PRN PRN Reason: Constipation Metoprolol Tartrate (Metoprolol Tartrate 50 Mg Tab) 50 mg PO BID [facility] Last Admin: 09/05/23 09:26 Dose: 50 mg Naloxone HCl (Naloxone 0.4 Mg/Ml 1 Ml Vial) 0.2 mg IV Q2M PRN PRN Reason: Opioid Reversal Naproxen (Naproxen 250 Mg Tab) 250 mg PO BID [facility] Last Admin: 09/05/23 09:26 Dose: 250 mg Ondansetron HCl (Ondansetron 4 Mg/2 Ml Vial) 4 mg IVP Q6HR PRN PRN Reason: Nausea And Vomiting Pantoprazole Sodium (Pantoprazole 40 Mg Tablet) 40 mg PO AC-BID [facility] Last Admin: 09/05/23 06:42 Dose: Not Given Potassium Chloride (Potassium Chloride Er 20 Meq Tab.Er) 20 meq PO DAILY [facility] Last Admin: 09/05/23 09:26 Dose: 20 meq Pramipexole Dihydrochloride (Pramipexole 0.125 Mg Tab) 0.125 mg PO BID [facility] Last Admin: 09/05/23 09:25 Dose: 0.125 mg Pravastatin Sodium (Pravastatin Sodium 40 Mg Tab) 40 mg PO DAILY [facility] Last Admin: 09/05/23 09:25 Dose: 40 mg Prazosin HCl (Prazosin 1 Mg Cap) 2 mg PO TID [facility] Last Admin: 05/16/24 09:24 Dose: 2 mg Pyridoxine HCl (Pyridoxine 50 Mg Tab) 100 mg PO DAILY [facility] Last Admin: 09/05/23 09:25 Dose: 100 mg Quetiapine Fumarate (Quetiapine 25 Mg Tab) 25 mg PO HS [facility] Last Admin: 09/04/23 20:02 Dose: 25 mg Senna/Docusate Sodium (Sennosides-Docusate Sodium 1 Each Tab) 2 each PO DAILY [facility] Last Admin: 09/05/23 09:25 Dose: 2 each Past medical history to include: Asthma, GERD, hyperlipidemia, hypertension, osteoarthritis, paroxysmal atrial fibrillation, varicose veins, stomach ulcer, diverticulitis. Esophagitis, gastritis, internal/external hemorrhoids, watchman procedure, esophagitis, internal hemorrhoids. Right carotid 50-69% stenosis Social history: Does not smoke or drink Cold. Lives alone. Physical examination: VITAL SIGNS: 98.3, 50, 16, 102/67, 96% room air GENERAL: Up in a recliner, awake but tired EYES: Pupils equal. Conjunctiva pale. HEENT: External appearance of nose and ears normal, oral cavity grossly normal. Very hard of hearing NECK: Soft collar HEART: Heart sounds irregular l, no edema. LUNGS: Respiratory rate normal, decreased breaths sounds. ABDOMEN: Soft, nontender, liver spleen not palpable, no masses palpable. PSYCH: Able to hold on to a regular conversation. Slight forgetfulness. MUSCULAR skeletal:: Evidence of OA especially in the hands. Dressing over surgical site NEUROLOGICAL: Cranial nerves grossly intact; no facial asymmetry, power fair in all 4 limbs INVESTIGATIONS, reviewed in the clinical context: September 02: White count 14 hemoglobin 11.9 potassium 4.3 creatinine 0.98 September 02, 2023: White count 15.5 hemoglobin 11.5 platelets 182 potassium 3.9 creatinine 0.96 August 30, 2023: White count 9.4 hemoglobin 12.1 platelets 219 sodium 140 potassium 4.2 BUN 24 creatinine 0.82 Troponin I less than 0.012 UA: Negative CT brain without contrast: Unremarkable Cervical spine CT: Mild DJD changes. Compromise of the cervical canal C3-C4, C4-C5, C5-6 6. Multiple foramina encroachment levels. Assessment and plan: -Acute presentation cervical stenosis severe with myelopathy, causing acute qu adriparesis: Surgical intervention by Dr. Wilson on September 01, 2023 1. C2-T2 posterolateral instrumented fusion (02441, [id number]) 2. C2-T2 instrumentation (99479) 3. C2-T1 decompressive laminectomy, partial medial facetectomy and foraminotomy (80420, [id number]) USE OF IONM Implants: -OSCAR POSTERIOR CERVIAL SYSTEM 5.0. -AUTOGRAFT, MAGNATOS Hard collar -Mild cognitive impairment. [Previous SLUMS examination, was given by the speech therapist. 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 Nonvisualization of the right vertebral artery Baby aspirin. Follow-up with Dr. Mota outpatient -Internal hemorrhoids. - moderate persistent asthma, Symbicort -No chronic kidney disease, -COPD in secondhand smoke exposure Bronchodilators -Acute delirium possibly from pain medications overnight.: Resolved Seroquel 25 mg nightly. -GERD, on PPI -Hyperlipidemia, on Pravachol -Essential hypertension, Cardizem 60 mg 3 times daily, Cozaar 100 mg nightly, Lopressor 50 mg twice daily added today Data Jose discontinued today -Primary osteoarthritis, use Tylenol when necessary -Paroxysmal atrial fibrillation, patient got into rapid ventricular rate: Uncontrolled Telemetry. Cardiology consulted. Cardizem CD discontinued. Changed to Cardizem 60 mg 3 times daily. Metoprolol 50 mg twice daily added. -Chronic Esophagitis and gastritis., On PPI -Very hard of hearing Hearing aids Discussed at length with the daughter at the bedside. Heart rate uncontrolled. Medication changes per cardiology. Not ready for discharge. Spoke to nurse and outpatient case manager. Total spent today about 1 hour with over 40 minutes of discussion. Past Medical History Past Medical History: Atrial Fibrillation, Asthma, COPD, GERD/Reflux, GI Bleed, Hyperlipidemia, Hypertension, Osteoarthritis (OA), Pneumonia, Vascular Disorder Additional Past Medical History / Comment(s): [place], Bronchitis, gastric ulcer, diverticular disease, lower GI bleed/AV malformation with ablation, benign colon polyp, borderline hyperlipidemia, arthritis mostly in back, slight bilateral gl aucoma, varicosities. History of Any Multi-Drug Resistant Organisms: None Reported Past Surgical History: Adenoidectomy, Appendectomy, Heart Catheterization, Hysterectomy, Tonsillectomy, Tubal Ligation Additional Past Surgical History / Comment(s): Colonoscopy/benign polypectomy/AV malformation ablation, bilateral cataract removals, watchmen procedure Past Anesthesia/Blood Transfusion Reactions: No Reported Reaction Additional Past Anesthesia/Blood Transfusion Reaction / Comment(s): never recieved blood before. Past Psychological History: No Psychological Hx Reported Smoking Status: Never smoker Past Alcohol Use History: None Reported Past Drug Use History: None Reported
[2023-09-06 10:30] VITALS: BMI 20.7
[2023-09-06 11:29] VITALS: BP 93/63; PULSE 60; TEMP 97.1
--- NOTE | 2023-09-06 11:34 | P.PN ---
Progress Note - Text Progress Note Date: 09/06/23 HPI: This patient is in atrial fibrillation the rate is better controlled. She is not on anticoagulation and has had a Watchman procedure. On Saturday, August 31 she underwent cervical spine surgery. I am recommending that we increase the metoprolol to tartrate to 50 mg 3 times daily and she can go to [facility]. Vitals are stable JVD was not assessed S1-S2 with a regular rhythm noted lungs reveal decent air entry abdomen is soft lower EXTR reveal diminished pulses Central nervous system assessment was not performed. Patient can go to [facility] on metoprolol tartrate 50 mg 3 times daily and also Cardizem 60 mg 3 times daily. Advised to follow-up with her skein drier upon discharge from [facility].. PHYSICIAL EXAM:. IMPRESSION: 1.. 2.. 3.. 4.. 5.. RECOMMENDATIONS:.
--- NOTE | 2023-09-06 12:19 | P.PN ---
Progress Note - Text Progress Note Date: 09/06/23 Diagnosis: 1. CERVICAL STENOSIS, SEVERE WITH MYELOPATHY 2. BUE AND LE WEAKNESS 3. PARAPLEGIA LE 4. NECK PAIN 5. UE PARESTHESIAS Subjective: Patient was seen at bedside this morning on 3 S. floor. Patient's daughter was present during encounter and gave most of the history. Patient seemed to be somewhat groggy during the encounter. She was sitting up in chair with legs elevated did not want to move. Soft cervical collar was in place with dressing present over posterior cervical spine. Patient says she is looking forward to going to rehab later today. Patient's daughter mentions that her mother is still been having a decent mount of pain to the neck and has had some difficulty ambulating when she has gotten up with therapy. Patient's daughter states that her mother seems to be somewhat unsteady when she has been getting up with therapy. Patient does note improvement in some of the symptoms in her upper extremities. Objective: C-collar in place and dressing present over posterior cervical spine shagufta appear to be well aligned and intact. Negative for any drainage. There is moderate tenderness to palpation diffusely throughout the posterior cervical spine near incision. Nontender to palpation throughout rest of exam. Patient has full range of motion throughout bilateral elbows and wrists on flexion extension. Patient has limited range of motion in the bilateral shoulders secondary to stiffness and referred pain to the neck. 3+/5 in all major motor groups in bilateral upper extremities. Pulse intact, 2+ bilaterally. Cap refill under 3 seconds in digits of upper extremities. Assessment: 1. CERVICAL STENOSIS, SEVERE WITH MYELOPATHY 2. BUE AND LE WEAKNESS 3. PARAPLEGIA LE 4. NECK PAIN 5. UE PARESTHESIAS -Postop day #5 status post C2-T2 posterior cervical decompression and fusion Plan: 1. CERVICAL STENOSIS, SEVERE WITH MYELOPATHY; BUE AND LE WEAKNESS; PARAPLEGIA LE; NECK PAIN; UE PARESTHESIAS -surgery performed 09/01/2023 -CT to T2 posterior cervical decompression and fusion. Patient stable bedside this morning with c-collar in place and dressing present over C-spine. Pain medication as needed. Patient may weight-bear as tolerated with walker and assistance. Plan is for discharge to rehab today. Orthopedics is signing off at this time. Please do not hesitate to contact us for any further questions. Follow-up in office in [address] Wilson. 2. Appreciate medical management 3. Pain management -[place]; Tylenol; Flexeril 4. DVT prophylaxis -aspirin 5. GI prophylaxis -senna; Protonix 6. PT/OT -weightbearing as tolerated with walker and assistance as needed 7. Encourage incentive spirometer use 8. Discharge planning -discharge per medicine. Planning for rehab today
--- NOTE | 2023-09-06 14:34 | P.DS ---
Providers Date of admission: 08/30/23 16:23 Expected date of discharge: 09/06/23 Attending physician: Jovani Pelaez Consults: 08/30/23 16:05 Consult Physician Routine Consulting Provider: Amando Wilson Consult Reason/Comments: Neck pain, back pain, difficulty ambulating Do you want consulting provider notified?: Yes Consult Physician Urgent Consulting Provider: Kevin Piper Consult Reason/Comments: Extremity weakness Do you want consulting provider notified?: Yes 09/03/23 08:07 Consult Physician Routine Consulting Provider: [facility] Consult Reason/Comments: A-fib RVR Do you want consulting provider notified?: Yes Primary care physician: [facility] Course: Chief Complaint: Weakness in all 4 limbs very pleasant 78-year-old patient of Dr. Zbigniew Gary. Chronic stable medical conditions include GERD, hyperlipidemia, hypertension, osteoarthritis, paroxysmal atrial fibrillation, varicose veins, diverticulosis. very hard of hearing and does lipreading. watchman procedure done by Dr. Cocnepcion at [facility] on 05/2020.. July 2022. [With altered mental status.] MRI/EEG/neurological work was un remarkable. Carotid Doppler showed 50-69% on the left ICA. Nonvisualization of the right vertebral artery. Patient was placed on aspirin and was to follow-up with Dr. Mota from vascular.SLUMS-examination suggestive of dementia.-Not severe. Patient has chronic left eye ptosis and left nasolabial weakening. Patient normally able to get about. Yesterday morning patient felt some pain in the neck. Let it go. Later she went to lie down. When she tried to get up she really could not get up and fell down. She had to crawl. Emerson weak in all the limbs. She called up her daughter. Denies any change in vision no change in speech. No involvement of bowel or bladder. More weak on the right side. Still not able to get out of bed. September 01, 2023: Patient underwent cervical spine/thoracic spine surgery by Dr. Wilson this morning. Patient having significant pain. Has a neck support in place. Family at the bedside. Blood pressure likely elevated because of pain. Minipress was increased yesterday. September 02, 2023: Sitting up in a recliner. Hard collar in place. Pain is present. Handgrip is fair. Patient daughter in the room. Decreased oral intake. Add Ensure. Leukocytosis from steroids. September 03, 2023: Reclining in bed. Pain better. Hard collar remains in place. Went into A-fib uncontrolled. Cardiology was consulted. Ordered Cardizem drip. Power is fair in all the 4 limbs September 04, 2023: Reclining bed. Was confused overnight. Was pulling out wires. Will try small dose of Seroquel tonight. A-fib controlled. On Cardizem drip. Decreased oral intake. September 05, 2023: Patient given Seroquel last night. Delirium resolved. Daughter at the bedside. Some pain at the operative site. Eating okay. Still weak in the legs. Heart rate uncontrolled. In 130s. Patient being switched over to Cardizem 60 mg p.o. 3 times daily. Cardizem CD discontinued. Metoprolol increased to 50 mg twice daily by cardiology. Hold discharge until heart rate better controlled. Care was discussed at length with the patient and daughter at the bedside. Questions answered. Soft collar September 06, 2023: Medication discussed at length with the daughter at the bedside. Pain is still the issue. Did discuss about pain control versus patient being lethargic not able to eat. Still weak. Able to answer questions. Soft collar. Prazosin is being discontinued. Lopressor was increased to 3 times daily. Will cut back Cozaar to 50 mg nightly Discussion and discharge planning more than 35 minutes Past medical history to include: Asthma, GERD, hyperlipidemia, hypertension, osteoarthritis, paroxysmal atrial fibrillation, varicose veins, stomach ulcer, diverticulitis. Esophagitis, gastritis, internal/external hemorrhoids, watchman procedure, esophagitis, internal hemorrhoids. Right carotid 50-69% stenosis Social history: Does not smoke or drink Cold. Lives alone. Physical examination: VITAL SIGNS: 97.1, 60, 16, 93 x 63, 93% room air GENERAL: Up in a recliner, awake but tired EYES: Pupils equal. Conjunctiva pale. HEENT: External appearance of nose and ears normal, oral cavity grossly normal. Very hard of hearing NECK: Soft collar HEART: Heart sounds irregular l, no edema. LUNGS: Respiratory rate normal, decreased breaths sounds. ABDOMEN: Soft, nontender, liver spleen not palpable, no masses palpable. PSYCH: Able to hold on to a regular conversation. Slight forgetfulness. MUSCULAR skeletal:: Evidence of OA especially in the hands. Dressing over surgical site NEUROLOGICAL: Cranial nerves grossly intact; no facial asymmetry, power fair in all 4 limbs INVESTIGATIONS, reviewed in the clinical context: September 02: White count 14 hemoglobin 11.9 potassium 4.3 creatinine 0.98 September 02, 2023: White count 15.5 hemoglobin 11.5 platelets 182 potassium 3.9 creatinine 0.96 August 30, 2023: White count 9.4 hemoglobin 12.1 platelets 219 sodium 140 potassium 4.2 BUN 24 creatinine 0.82 Troponin I less than 0.012 UA: Negative CT brain without contrast: Unremarkable Cervical spine CT: Mild DJD changes. Compromise of the cervical canal C3-C4, C4-C5, C5-6 6. Multiple foramina encroachment levels. Assessment and plan: -Acute presentation cervical stenosis severe with myelopathy, causing acute quadriparesis: Surgical intervention by Dr. Wilson on September 01, 2023 1. C2-T2 posterolateral instrumented fusion (07069, [id number]) 2. C2-T2 instrumentation (34634) 3. C2-T1 decompressive laminectomy, partial medial facetectomy and foraminotomy (31342, [id number]) USE OF IONM Implants: -VIRTRA SYSTEMS POSTERIOR CERVIAL SYSTEM 5.0. -AUTOGRAFT, MAGNATOS Hard collar -Mild cognitive impairment. [Previous SLUMS examination, was given by the speech therapist. 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 Nonvisualization of the right vertebral artery Baby aspirin. Follow-up with Dr. Mota outpatient -Internal hemorrhoids. - moderate persistent asthma, Symbicort -No chronic kidney disease, -COPD in secondhand smoke exposure Bronchodilators -Acute delirium possibly from pain medications overnight.: Resolved Seroquel 25 mg nightly. -GERD, on PPI -Hyperlipidemia, on Pravachol -Essential hypertension, Cardizem 60 mg 3 times daily, Cozaar 50 mg nightly, Lopressor 50 mg 3 times daily -Primary osteoarthritis, use Tylenol when necessary -Paroxysmal atrial fibrillation, patient got into rapid ventricular rate: Better controlled Telemetry. Cardiology consulted. Cardizem 60 mg 3 times daily. Metoprolol 50 mg 3 times daily -Chronic Esophagitis and gastritis., On PPI -Very hard of hearing Hearing aids -Full code Disposition: Rehab at [facility] Past Medical History Past Medical History: Atrial Fibrillation, Asthma, COPD, GERD/Reflux, GI Bleed, Hyperlipidemia, Hypertension, Osteoarthritis (OA), Pneumonia, Vascular Disorder Additional Past Medical History / Comment(s): [place], Bronchitis, gastric ulcer, diverticular disease, lower GI bleed/AV malformation with ablation, benign colon polyp, borderline hyperlipidemia, arthritis mostly in back, slight bilateral glaucoma, varicosities. History of Any Multi-Drug Resistant Organisms: None Reported Past Surgical History: Adenoidectomy, Appendectomy, Heart Catheterization, Hysterectomy, Tonsillectomy, Tubal Ligation Additional Past Surgical History / Comment(s): Colonoscopy/benign polypectomy/AV malformation ablation, bilateral cataract removals, watchmen procedure Past Anesthesia/Blood Transfusion Reactions: No Reported Reaction Additional Past Anesthesia/Blood Transfusion Reaction / Comment(s): never recieved blood before. Past Psychological History: No Psychological Hx Reported Smoking Status: Never smoker Past Alcohol Use History: None Reported Past Drug Use History: None Reported Plan - Discharge Summary New Discharge Prescriptions: New Cyclobenzaprine [Flexeril] 5 mg PO TID #21 tablet HYDROcodone/APAP 7.5-325MG [[place] 7.5-325] 1 tab PO Q6HR PRN #24 tab PRN Reason: Pain Sennosides/Docusate Sodium [Senna Plus 8.6-50 mg Softgel] 1 each PO DAILY #20 capsule bisacodyL [Dulcolax] 10 mg RECTAL DAILY PRN suppositor PRN Reason: Constipation Metoprolol Tartrate [Lopressor] 50 mg PO TID tab Gabapentin [Neurontin] 100 mg PO TID #9 cap cefaDROXiL [Duricef] 500 mg PO Q12HR 5 Days #10 cap Diltiazem Oral [Cardizem*] 60 mg PO TID tab Naproxen [Naprosyn] 250 mg PO BID tab QUEtiapine [SEROquel] 25 mg PO HS tab Acetaminophen Tab [Tylenol] 1,000 mg PO TID tab Continue Pravastatin Sodium [Pravachol] 40 mg PO DAILY Latanoprost [Xalatan 0.005%] 1 drop BOTH EYES HS Budesonide/Formoterol Fumarate [Symbicort 160-4.5 Mcg Inhaler] 1 puff INHALATION RT-BID Omeprazole 20 mg PO DAILY Aspirin 81 mg PO DAILY tab Cholecalciferol [Vitamin D3 (125 Mcg = 5000 Iu)] 125 mcg PO DAILY Carboxymethylcell/Glycerin/Pf [Refresh Relieva Pf 0.5-1% Drop] 1 drop BOTH EYES QID PRN PRN Reason: Dry Eye(S) Cyanocobalamin [Vitamin B-12] 500 mcg PO DAILY #30 tab Prazosin [Minipress] 1 mg PO TID Losartan Potassium [Cozaar] 100 mg PO HS Folic Acid 0.8 mg PO DAILY Pyridoxine [Vitamin B-6] 100 mg PO DAILY Potassium Chloride [Klor-Con M10] 20 meq PO DAILY Ascorbic Acid [Vitamin C] 1,000 mg PO DAILY Discontinued nadoloL [Nadolol] 40 mg PO DAILY Mirtazapine [Remeron] 7.5 mg PO HS Discharge Medication List Pravastatin Sodium [Pravachol] 40 mg PO DAILY 07/20/15 [History] Latanoprost [Xalatan 0.005%] 1 drop BOTH EYES HS 10/15/16 [History] Budesonide/Formoterol Fumarate [Symbicort 160-4.5 Mcg Inhaler] 1 puff INHALATION RT-BID 08/11/17 [History] Omeprazole 20 mg PO DAILY 06/25/20 [History] Aspirin 81 mg PO DAILY tab 11/26/22 [Rx] Cyanocobalamin [Vitamin B-12] 500 mcg PO DAILY #30 tab 11/26/22 [Rx] Ascorbic Acid [Vitamin C] 1,000 mg PO DAILY 08/30/23 [History] Carboxymethylcell/Glycerin/Pf [Refresh Relieva Pf 0.5-1% Drop] 1 drop BOTH EYES QID PRN 08/30/23 [History] Cholecalciferol [Vitamin D3 (125 Mcg = 5000 Iu)] 125 mcg PO DAILY 08/30/23 [History] Folic Acid 0.8 mg PO DAILY 08/30/23 [History] Losartan Potassium [Cozaar] 100 mg PO HS 08/30/23 [History] Potassium Chloride [Klor-Con M10] 20 meq PO DAILY 08/30/23 [History] Prazosin [Minipress] 1 mg PO TID 08/30/23 [History] Pyridoxine [Vitamin B-6] 100 mg PO DAILY 08/30/23 [History] Acetaminophen Tab [Tylenol] 1,000 mg PO TID tab 09/06/23 [Rx] Cyclobenzaprine [Flexeril] 5 mg PO TID #21 tablet 09/06/23 [Rx] Diltiazem Oral [Cardizem*] 60 mg PO TID tab 09/06/23 [Rx] Gabapentin [Neurontin] 100 mg PO TID #9 cap 09/06/23 [Rx] HYDROcodone/APAP 7.5-325MG [[place] 7.5-325] 1 tab PO Q6HR PRN #24 tab 09/06/23 [Rx] Metoprolol Tartrate [Lopressor] 50 mg PO TID tab 09/06/23 [Rx] Naproxen [Naprosyn] 250 mg PO BID tab 09/06/23 [Rx] QUEtiapine [SEROquel] 25 mg PO HS tab 09/06/23 [Rx] Sennosides/Docusate Sodium [Senna Plus 8.6-50 mg Softgel] 1 each PO DAILY #20 capsule 09/06/23 [Rx] bisacodyL [Dulcolax] 10 mg RECTAL DAILY PRN suppositor 09/06/23 [Rx] cefaDROXiL [Duricef] 500 mg PO Q12HR 5 Days #10 cap 09/06/23 [Rx] Follow up Appointment(s)/Referral(s): Zbigniew Gary DO [Primary Care Provider] - 1-2 days Amando Wilson DO [Doctor of Osteopathic Medicine] - 10 Days Tyler Mckee MD [STAFF PHYSICIAN] - 2 Weeks Activity/Diet/Wound Care/Special Instructions: Spine Discharge and Recovery Instructions All medication refills should be obtained through your primary care doctor or your clinic spine surgeon. Please discuss prescription refills at your follow up appointment. Do not call the hospital for medication refills. Dressing: Leave your dressing in place for a total of 5 days post operatively. Then you may remove your dressing and leave open to air. Keep the area clean and if not able to keep area clean, then cover with sterile gauze and tape. Showering: You may shower 3 days after your procedure allowing soap and water to run over incision. Do not scrub. Do not soak. Blot dry. Follow up: Please confirm a follow up appointment with your surgeon 3 weeks post operatively. Please make an appointment to follow up with your PCP in 1-2 weeks after surgery for evaluation `3 phase, 3-week plan POST OP WEEKS 1-3 1. Lifting/carrying/pushing/pulling limited to less than 5 pounds. 2. Do not sit for longer than 15 minutes at one time. Get up and walk around. Prolonged sitting is NOT advised. If you lay down, see if you can tolerate laying down on you front (belly side) 3. Walk for periods of 15 minutes = 1 mile but no longer; do it multiple times times each day. 4. Ice your low back after activity. POST OP WEEKS 3-6 1. Lifting limited to less than 20 pounds. 2. Do not sit for longer than 30 minutes at a time. Frequently change positions. Use a sit-to stand workstation or take frequent breaks from sitting if you have returned to work. 3. Walk for 30 minutes each day. If possible, do these three or more times a day POST OP WEEKS 6+ At your 6-week appointment we will give you a physical therapy referral to focus on a core stabilization and strengthening program. You should also work on leg & buttock strengthening, hamstring & quadriceps stretching, and continue a low impact aerobic activity program such as swimming, walking, or riding a stationary bicycle. During the initial 6 weeks after your surgery, you are at the highest risk of re-injuring your spine. You should generally avoid BLTs (bending, lifting and twisting combination motions) and follow the above guidelines to reduce the chance of reinjury. You can anticipate post op appointments in our office at approximately 3 weeks and 6 weeks after your surgery. INCISION CARE: If your incision is not draining you do NOT need to cover it with a dressing. Keep your incision clean, dry and intact. In most cases, we apply skin glue, shagufta or sutures to the incision at the time of surgery. This will be like a crust or have the appearance of a scab and will fall off in time on its own. The stitches or shagufta need to be removed at 3 weeks post op appointment. You may begin to shower 3 days after surgery (this allows the glue to todd well). However, please avoid scrubbing the incision site or peeling off any of the skin glue. This will ensure optimal healing of your incision. Also, during this time avoid soaking the incision area in water - this includes swimming pools, hot tubs or baths. No ointments, lotions or oils on the incision until your surgeon allows. Leave shagufta, sutures or glue in place. Neurological dysfunction that comes on suddenly can also be a sign of a stroke. Below some common symptoms of a stroke are listed: B - balance difficulty such as sudden onset walking or leaning to one side - NEW E - eye problem such as sudden double vision or trouble seeing on one side - NEW F - Facial weakness or numbness on one side - NEW A - Arm or leg weakness or numbness on one side - NEW S - Slurred speech or difficulty with word finding - NEW T - Time is BRAIN! Call 911 as soon as you recognize these symptoms Diet: Consume a regular diet rich in vegetables and lean protein such as chicken or fish. You should consume in a ratio of approximately 20% fats|40% carbohydrates|40%protein. Vegetables, sweet potatoes, brown rice or quinoa are examples of good carbohydrates. Chips, white bread, cookies and sweets/sugar are examples of bad carbohydrates. Limit your bad carbs, go wild with good carbs. "Life's Simple 7" Guidelines as per [place] [employer] These will help you reclaim your life after surgery and firebrick layer helper in your recovery, keeping in mind your restrictions. (1) Get Active. Physical activity can help people lose weight, control high blood pressure and cholesterol, feel emotionally better, and sleep better. (2) Control Cholesterol. Avoid a diet high in saturated fat, trans fat, & cholesterol. Limit whole milk & cream, ice cream, butter, egg yolks, processed meats (like sausage and hot dogs), and fatty meats. Choose healthy foods that are low in saturated fat, trans fat and cholesterol which include: Fruits and vegetables, fiber rich grain products (like whole grain pasta and brown rice), lean meat such as chicken, fish, nuts, seeds, and legumes. (3) Eat Better. Eat small portions. Shop at the grocery with a list and do not stray from it. Tips for a healthy diet include: Limit sodium intake to less than 1500mg daily, avoid prepackaged, processed, and fast foods, choose a diet rich in fruits, vegetables, and whole grain, high fiber foods, and limit saturated & cholesterol in your diet. (4) Manage Blood Pressure. If you have high blood pressure, you should have a cuff at home so that you can check your blood pressure regularly. Be sure you have a good cuff. An arm one is generally better than a wrist one. Bring the cuff to a doctor's appointment to validate that the measurements that your cuff are taking are accurate. Take your blood pressure twice daily when you are sitting down and relaxing. Record the numbers in a log and bring this log with you to your doctors' appointments. (5) Lose Weight if your BMI is above 25. A healthy BMI is between 19-25. To calculate Your BMI, you may use a Standard BMI Calculator on the NIH BMI website: <www.nhlbi.nih.gov/guidelines/obesity/BMI/bmicalc.htm>. Weigh oneself daily. If you are overweight, set a goal to lose weight. A pound a week loss if needed is a good target. (6) Reduce Blood Sugar. Limit foods and liquids with "added sugars." (Added sugars include sucrose, fructose, glucose, maltose, dextrose, high fructose corn syrup, corn syrup, concentrated fruit juice and honey). (7) Stop Smoking. If you smoke, quitting smoking is one of the best things that you can do for your health. Smoking increases your risk of heart attack, stroke, and peripheral vascular disease, which is a build-up of plaque in your arteries. Please discard all the cigarettes and lighters in your house. Have a plan for what you will do when you have the urge to smoke. Direct and second- hand smoke shortens your life as well as the lives of your family, friends and others around you. For your health and the health of those around you, please consider quitting! Proper Bending Body Mechanics: Maintain a wide stance with one foot slightly in front of the other. Keep your back straight. Bend utilizing the strength in your hips and knees. Do not bend at the waist. Maintain the lifted object at your waist-level close to your body. Avoid lifting weight that causes immediately pain or pain anywhere in the body afterwards. Smoking/Nicotine If there was ever one thing that you could do to increase your overall health, d ecrease your risk of cardiovascular problems by about 39% the second you make the choice, it is to STOP SMOKING. Your body's most instant gratification is the second you stop smoking. We have all heard the studies, read the articles but it is true, smoking is extremely bad for your overall health, and moreover it is detrimental to your bone health. Nicotine, IN ANY FORM, kills bone cells, prevents your body from healing fractures, and significantly prolongs healing after surgery. In spine surgery specifically, it increases your risk of not healing your bones to create a fusion and increases your risk of having a revision surgery due to this up to 60%. I know it is hard. I know it feels impossible. But there are ways. Take control of your life. We are here to help you through it. And when you are ready, ask us and we can direct you to help if you desire. Use the START Plan to Quit Smoking (please visit the Helpguide.org website listed below for more information): S = Set a quit date. Choose a date within the next 2 weeks, so you have enough time to prepare without losing your motivation to quit. If you mainly smoke at work, quit on the weekend, so you have a few days to adjust to the change. T = Tell family, friends, and co-workers that you plan to quit. Let your friends and family in on your plan to quit smoking and tell them you need their support and encouragement to stop. Look for a quit toño who wants to stop smoking as well. You can help each other get through the rough times. A = Anticipate and plan for the challenges you'll face while quitting. Most people who begin smoking again do so within the first 3 months. You can help yourself make it through by preparing ahead for common challenges, such as nicotine withdrawal and cigarette cravings. R = Remove cigarettes and other tobacco products from your home, car, and work. Throw away all your cigarettes (no emergency pack!), lighters, ashtrays, and matches. Wash your clothes and freshen up anything that smells like smoke. Shampoo your car, clean your drapes and carpet, and steam your furniture. T = Talk to your doctor about getting help to quit. Your doctor can prescribe medication to help with withdrawal and suggest other alternatives. If you can't see a doctor, you can get many products over the counter at your local pharmacy or grocery store, including the nicotine patch, nicotine lozenges, and nicotine gum. Resources for Quitting Smoking: <https://www.[place].gov/documents/[facility]/Quit_Tobacco_Resources_for_patients_313 480_7.pdf> Supplementation: Take recommended dosages of Vitamin D and Calcium to help fortify your bones and help them to heal. See your health maintenance packet for dosages and recommended levels. DVT/VTE prophylaxis: You will be given compression stockings from the hospital. Wear these daily for the first two weeks after surgery. You may take them off at night. You may be prescribed a medication to help thin your blood. Take this as directed. If you are not prescribed this medication, early and frequent ambulation has been shown to be the best prophylaxis to deep vein thrombosis and sequelae related to this event. Discharge Disposition: TRANSFER TO SNF/ECF
[2023-09-06] MEDS ORDERED: METOPROLOL TARTRATE 50 MG TAB PO SCH (16:00)
== END 2023-09-06 13:20 | DRG 454 ==
LOC: EC 10:11 → 6NMEDSUR 16:22 → OBSVTOIN 16:23 → 6NMEDSUR 18:08 → 4SSUR 08-31 12:03 → 3SCARD 09-03 13:37
PROVIDERS: ADMIT Hospitalist; ATTEND Hospitalist
PROC: 0RG20AJ Fusion of 2 or more Cervical Vertebral Joints with Interbody Fusion Device, Posterior Approach, Anterior Column, Open Approach (ICD-10-PCS; 2023-09-01)
PROC: 0RG2071 Fusion of 2 or more Cervical Vertebral Joints with Autologous Tissue Substitute, Posterior Approach, Posterior Column, Open Approach (ICD-10-PCS; 2023-09-01)
PROC: 01N80ZZ Release Thoracic Nerve, Open Approach (ICD-10-PCS; 2023-09-01)
PROC: 00NW0ZZ Release Cervical Spinal Cord, Open Approach (ICD-10-PCS; 2023-09-01)
PROC: 00NX0ZZ Release Thoracic Spinal Cord, Open Approach (ICD-10-PCS; 2023-09-01)
PROC: 0RG40AJ Fusion of Cervicothoracic Vertebral Joint with Interbody Fusion Device, Posterior Approach, Anterior Column, Open Approach (ICD-10-PCS; 2023-09-01)
PROC: 0RG4071 Fusion of Cervicothoracic Vertebral Joint with Autologous Tissue Substitute, Posterior Approach, Posterior Column, Open Approach (ICD-10-PCS; 2023-09-01)
PROC: 0RG60AJ Fusion of Thoracic Vertebral Joint with Interbody Fusion Device, Posterior Approach, Anterior Column, Open Approach (ICD-10-PCS; 2023-09-01)
PROC: 0RG6071 Fusion of Thoracic Vertebral Joint with Autologous Tissue Substitute, Posterior Approach, Posterior Column, Open Approach (ICD-10-PCS; 2023-09-01)
PROC: 01N10ZZ Release Cervical Nerve, Open Approach (ICD-10-PCS; principal; 2023-09-01 08:00)
DX: M47.12 Other spondylosis with myelopathy, cervical region (principal); F03.92 Unspecified dementia, unspecified severity, with psychotic disturbance; G95.89 Other specified diseases of spinal cord; M48.52XA Collapsed vertebra, not elsewhere classified, cervical region, initial encounter for fracture; F05 Delirium due to known physiological condition; M47.13 Other spondylosis with myelopathy, cervicothoracic region; I48.0 Paroxysmal atrial fibrillation; M41.86 Other forms of scoliosis, lumbar region; J45.40 Moderate persistent asthma, uncomplicated; J44.89 Other specified chronic obstructive pulmonary disease; M48.02 Spinal stenosis, cervical region; M47.22 Other spondylosis with radiculopathy, cervical region; M47.23 Other spondylosis with radiculopathy, cervicothoracic region; M48.03 Spinal stenosis, cervicothoracic region; M51.36 Other intervertebral disc degeneration, lumbar region; I10 Essential (primary) hypertension; I65.22 Occlusion and stenosis of left carotid artery; Z77.22 Contact with and (suspected) exposure to environmental tobacco smoke (acute) (chronic); Z95.828 Presence of other vascular implants and grafts; T42.6X5A Adverse effect of other antiepileptic and sedative-hypnotic drugs, initial encounter; T38.0X5A Adverse effect of glucocorticoids and synthetic analogues, initial encounter; Z79.899 Other long term (current) drug therapy; Z79.51 Long term (current) use of inhaled steroids; M25.78 Osteophyte, vertebrae; E78.5 Hyperlipidemia, unspecified; H02.402 Unspecified ptosis of left eyelid; G89.29 Other chronic pain; E53.8 Deficiency of other specified B group vitamins; D72.828 Other elevated white blood cell count; M19.91 Primary osteoarthritis, unspecified site; K21.00 Gastro-esophageal reflux disease with esophagitis, without bleeding; K29.50 Unspecified chronic gastritis without bleeding; H91.93 Unspecified hearing loss, bilateral; M51.16 Intervertebral disc disorders with radiculopathy, lumbar region; M48.07 Spinal stenosis, lumbosacral region; M48.061 Spinal stenosis, lumbar region without neurogenic claudication; M47.814 Spondylosis without myelopathy or radiculopathy, thoracic region; D75.89 Other specified diseases of blood and blood-forming organs; K64.8 Other hemorrhoids; K64.4 Residual hemorrhoidal skin tags; R29.6 Repeated falls; Z79.82 Long term (current) use of aspirin; Z91.81 History of falling; Z95.818 Presence of other cardiac implants and grafts; Z87.19 Personal history of other diseases of the digestive system; Z86.711 Personal history of pulmonary embolism; Z97.4 Presence of external hearing-aid
CPT/HCPCS: 36415; 70450; 71046; 72040; 72070; 72125; 72131; 72141; 80048; 80053; 81003; 83605; 83735; 84100; 84484; 85025; 85027; 85610; 85730; 93005; 93306; 94640; 94760; 96361; 96374; 96375; 99285

== ENCOUNTER → 2024-03-17 | Outpatient (CLI) | payer MEDICARE, OTHER ==
[2024-03-18 02:36] LABS: HCT 42.3 % (37.2-46.3); HGB 13.6 g/dL (12.0-15.0); MCH 32.3 pg (27.0-32.0); MCHC 32.2 g/dL (32.0-37.0); MCV 100.5 FL (80.0-97.0); Mean Platelet Volume 11.4 FL (9.5-12.2); NRBC Per 100 WBC 0 X 10*3/uL (0.00-0.01); Platelet Count 236 X 10*3/uL (140-440); RBC 4.21 X 10*6/uL (4.10-5.20); RDW 13.5 % (11.5-14.5)
[2024-03-18 03:39] LABS: Calcium 10.5 mg/dL (8.7-10.3); Carbon Dioxide 33.7 mmol/L (21.6-31.8); Chloride 96 mmol/L (96-109); Glucose 162 mg/dL (70-110); Potassium 3.2 mmol/L (3.5-5.5); Sodium 144 mmol/L (135-145)
== END | disposition home or self-care (01) ==
LOC: LABWHC1 15:12
PROVIDERS: ATTEND Family Medicine
DX: I10 Essential (primary) hypertension (principal); M81.0 Age-related osteoporosis without current pathological fracture
CPT/HCPCS: 36415; 80048; 82306; 85027

== ENCOUNTER 2024-03-31 11:06 | Inpatient (IN) | payer MEDICARE, OTHER ==
[2024-03-31 11:35] LABS: Basophils # (A) 0.1 k/uL (0-0.2); Basophils % (A) 0 %; Eosinophils # (A) 0.1 k/uL (0-0.7); Eosinophils % (A) 0 %; HCT 41.9 % (34.0-46.0); HGB 14.2 gm/dL (11.4-16.0); Lymphocytes # (A) 0.8 k/uL (1.0-4.8); Lymphocytes % (A) 4 %; Mean Platelet Volume 8.9; Monocytes # (A) 0.7 k/uL (0-1.0); Monocytes % (A) 4 %; Neutrophils # (A) 16.9 k/uL (1.3-7.7); Neutrophils % (A) 90 %; Platelet Count 205 k/uL (150-450); RBC 4.32 m/uL (3.80-5.40); WBC 18.6 k/uL (3.8-10.6)
[2024-03-31 11:46] LABS: African American GFR (CKD) 63 (>60 ml/min/1.73 sqM); Albumin 4.3 g/dL (3.5-5.0); Alkaline Phosphatase 322 U/L (38-126); Anion Gap 6 mmol/L; Blood Urea Nitrogen 21 mg/dL (7-17); Calcium 9.9 mg/dL (8.4-10.2); Carbon Dioxide 38 mmol/L (22-30); Chloride 97 mmol/L (98-107); Glucose 118 mg/dL (74-99); Non-African American GFR(CKD) 55 (>60 ml/min/1.73 sqM); Potassium 3.6 mmol/L (3.5-5.1); Sodium 141 mmol/L (137-145); Total Bilirubin 5.2 mg/dL (0.2-1.3); Total Protein 7.3 g/dL (6.3-8.2)
[2024-03-31 11:56] LABS: INR 1.1 (<1.2); Prothrombin Time 11.9 sec (10.0-12.5)
[2024-03-31 11:57] LABS: Partial Thromboplastin Time 21.7 sec (22.0-30.0)
[2024-03-31 12:17] LABS: Appearance,Urine Clear (Clear); Bacteria,Urine Occasional /hpf; Bilirubin,Urine Negative (Negative); Blood,Urine Small (Negative); Color,Urine Yellow; Glucose,Urine (UA) Negative (Negative); Ketones,Urine Negative (Negative); Leukocyte Esterase,Urine Moderate (Negative); Nitrite,Urine Negative (Negative); PH, Urine 7.5 (5.0-8.0); Protein,Urine 1+ (Negative); RBC,Urine 4 /hpf (0-5); Specific Gravity,Urine 1.013 (1.001-1.035); Squamous Epithelial Cell,Urine 2 /hpf (0-4); Urobilinogen,Urine <2.0 mg/dL (<2.0); WBC,Urine 14 /hpf (0-5)
--- NOTE | 2024-03-31 12:17 | XR ---
EXAMINATION TYPE: XR chest 2V DATE OF EXAM: 03/31/2024 12:11 PM COMPARISON: Chest radiographs from 08/30/2023 TECHNIQUE: XR chest 2V Frontal and lateral views of the chest. CLINICAL INDICATION:Female, 78 years old with history of altered mental status; FINDINGS: Lungs/Pleura: There is flattening of the diaphragm with increased lucency of the lungs. No evidence o f pneumothorax, pleural effusion or focal consolidation. Biapical pleural thickening. Pulmonary vascularity: Unremarkable. Heart/mediastinum: Cardiomediastinal silhouette is enlarged and stable. Atherosclerotic calcificatio ns are seen in the aorta. Left atrial appendage occlusion device. Musculoskeletal: No acute osseous pathology. Post surgical changes from posterior cervical thoracic f usion. Bilateral AC joint arthropathy. IMPRESSION: 1. No acute cardiopulmonary disease process. 2. COPD changes. 3. Cardiomegaly. [facility], , 03/31/2024 12:14 PM
[2024-03-31 12:21] LABS: ALT 2694 U/L (4-34); AST 3338 U/L (14-36)
--- NOTE | 2024-03-31 12:27 | CT ---
EXAMINATION TYPE: CT brain wo con CT DLP: 1096.4 mGycm, Automated exposure control for dose reduction was used. DATE OF EXAM: 03/31/2024 12:12 PM COMPARISON: CT brain 08/30/2023, 11/22/2022, MRI brain 11/23/2022 CLINICAL INDICATION:Female, 78 years old with history of Altered mental status, AMS TECHNIQUE: Brain: Multiple axial CT images of the brain were obtained without IV contrast. . Coronal and sagitta l reformats reviewed. FINDINGS: Brain: Extra-axial spaces: No abnormal extra-axial fluid collections. Ventricular system: Within normal limits Cerebral parenchyma: No acute intraparenchymal hemorrhage or mass effect. The maravilla-white junction is well differentiated. Confluent hypoattenuating areas are seen within the periventricular and subcort ical white matter. Nonspecific bilateral basal ganglia calcifications redemonstrated. Cerebellum: Unremarkable. Mass effect: No evidence of midline shift. Intracranial vasculature: Atherosclerotic calcifications of the intracranial vessels. Soft tissues: Normal. Calvarium/osseous structures: No depressed skull fracture. Paranasal sinuses and mastoid air cells: Clear Visualized orbits: Bilateral aphakia IMPRESSION: 1. No acute intracranial process. 2. Nonspecific white matter changes, likely secondary to chronic small vessel ischemic disease. [facility], , 03/31/2024 12:24 PM
--- NOTE | 2024-03-31 15:07 | CT ---
EXAMINATION TYPE: CT abdomen pelvis w con CT DLP: 441 mGycm, Automated exposure control for dose reduction was used. DATE OF EXAM: 03/31/2024 2:50 PM COMPARISON: CT abdomen pelvis 02/20/2021 CLINICAL INDICATION:Female, 78 years old with history of abd pain; abd pain TECHNIQUE: Standard CT of the abdomen and pelvis following the administration of 100 cc of Isovue 3 00 IV contrast material. Coronal and sagittal reformats were performed. FINDINGS: LOWER CHEST: Minimal posterior dependent subsegmental atelectasis is noted. Cardiomegaly with small p ericardial effusion. ABDOMEN LIVER: Unremarkable GALLBLADDER AND BILE DUCTS: Unremarkable. PANCREAS: Unremarkable. SPLEEN: Unremarkable. ADRENAL GLANDS: Unremarkable. KIDNEYS AND URETERS: No evidence of hydronephrosis or renal calculus. The kidneys enhance symmetrical ly. Left renal upper pole 1.6 cm cyst. Additional 2 subcentimeter hypodense foci within the right kid iron which are too small to characterize but likely represent cysts. Contrast is demonstrated within b oth collecting systems on the delayed phase. PELVIS BLADDER: Under distended, limiting evaluation. REPRODUCTIVE: The uterus is surgically absent. Left ovarian cystic lesion measuring up to 2.6 cm. Pre viously measured up to 1.6 cm. ABDOMEN & PELVIS STOMACH AND BOWEL: Stomach and duodenum are unremarkable. No focal bowel wall thickening or surroundi ng inflammatory changes. The appendix is not definitively visualized however no significant inflammat ory changes within the right lower quadrant and pelvis. No evidence of bowel obstruction. PERITONEUM: No evidence of pneumoperitoneum or free fluid. VASCULATURE: Mild atherosclerotic calcifications are present throughout the abdominal aorta and its b ranches. No evidence of aortic aneurysm. IVC filter in place. MUSCULOSKELETAL: No acute osseous abnormalities. Dextrocurvature of the lumbar spine. Moderate multil evel degenerative disease. LYMPH NODES: No evidence for lymphadenopathy. SOFT TISSUE/ABDOMINAL WALL: Unremarkable IMPRESSION: 1. No CT evidence for an acute abdominal/pelvic process. 2. Mild increase in size of left ovarian indeterminate cystic lesion measuring up to 2.6 cm. Further evaluation with outpatient pelvic ultrasound is recommended. 3. Mild cardiomegaly with small pericardial effusion. [facility], , 03/31/2024 3:05 PM
[2024-03-31] MEDS ORDERED: NALOXONE 0.4 MG/ML 1 ML VIAL IV PRN (15:27)
--- NOTE | 2024-03-31 15:27 | ED ---
Altered Mental Status HPI - General Chief Complaint: Altered Mental Status Stated Complaint: AMS Time Seen by Provider: 03/31/24 11:10 Source: EMS Mode of arrival: EMS Limitations: altered mental status - History of Present Illness Initial Comments: 78-year-old female with past medical history of dementia presents emergency department with some change in her mental status. Daughter is at bedside and helps provide the history. States that the patient has had increased confusion today. She was reporting to some epigastric pain last night but now that is gone. No falls or head injury. No fevers. Denies cough or shortness of breath. No nausea or vomiting. Denies any chest pain. No other alleviating, precipitating modifying factors - Related Data Home Medications Medication Instructions Recorded Confirmed Pravastatin Sodium [Pravachol] 40 mg PO DAILY 07/20/15 03/31/24 Latanoprost [Xalatan 0.005%] 1 drop BOTH EYES HS 10/15/16 03/31/24 Budesonide/Formoterol Fumarate 2 puff INHALATION RT-BID 08/11/17 03/31/24 [Symbicort 160-4.5 Mcg Inhaler] Omeprazole 20 mg PO DAILY 06/25/20 03/31/24 Ascorbic Acid [Vitamin C] 1,000 mg PO DAILY 08/30/23 03/31/24 Cholecalciferol [Vitamin D3 (125 125 mcg PO DAILY 08/30/23 03/31/24 Mcg = 5000 Iu)] Folic Acid 0.8 mg PO DAILY 08/30/23 03/31/24 Potassium Chloride [Klor-Con M10] 20 meq PO DAILY 08/30/23 03/31/24 Pyridoxine [Vitamin B-6] 100 mg PO DAILY 08/30/23 03/31/24 Albuterol Sulfate [Albuterol 2 puff PO RT-QID PRN 03/31/24 03/31/24 Sulfate Hfa] Diltiazem Oral [Cardizem*] 60 mg PO BID 03/31/24 03/31/24 Metoprolol Tartrate [Lopressor] 50 mg PO BID 03/31/24 03/31/24 hydroCHLOROthiazide 12.5 mg PO DAILY 03/31/24 03/31/24 Previous Rx's Medication Instructions Recorded HYDROcodone/APAP 7.5-325MG [[place] 1 tab PO Q6HR PRN #24 tab 09/06/23 7.5-325] Losartan [Cozaar] 50 mg PO HS #1 tab 09/06/23 Allergies Allergy/AdvReac Type Severity Reaction Status Date / Time No Known Allergies Allergy Verified 03/31/24 16:13 Review of Systems ROS Statement: Those systems with pertinent positive or pertinent negative responses have been documented in the HPI. ROS Other: All systems not noted in ROS Statement are negative. Past Medical History Past Medical History: Atrial Fibrillation, Asthma, COPD, GERD/Reflux, GI Bleed, Hyperlipidemia, Hypertension, Osteoarthritis (OA), Pneumonia, Vascular Disorder Additional Past Medical History / Comment(s): YOMBA SHOSHONE, Bronchitis, gastric ulcer, diverticular disease, lower GI bleed/AV malformation with ablation, benign colon polyp, borderline hyperlipidemia, arthritis mostly in back, slight bilateral glaucoma, varicosities. History of Any Multi-Drug Resistant Organisms: None Reported Past Surgical History: Adenoidectomy, Appendectomy, Heart Catheterization, Hysterectomy, Tonsillectomy, Tubal Ligation Additional Past Surgical History / Comment(s): Colonoscopy/benign polypectomy/AV malformation ablation, bilateral cataract removals, watchmen procedure Past Anesthesia/Blood Transfusion Reactions: No Reported Reaction Additional Past Anesthesia/Blood Transfusion Reaction / Comment(s): never recieved blood before. Past Psychological History: No Psychological Hx Reported Smoking Status: Never smoker Past Alcohol Use History: None Reported Past Drug Use History: None Reported - Past Family History Father Family Medical History: COPD Additional Family Medical History / Comment(s): EMPHYSEMA Mother Family Medical History: Osteoarthritis (OA) Additional Family Medical History / Comment(s): EMPHYSEMA, BOWEL OBSTRUCTION/COLOSTOMY General Exam Limitations: altered mental status (hx dementia) General appearance: alert, in no apparent distress Head exam: Present: atraumatic, normocephalic, normal inspection Eye exam: Present: normal appearance, PERRL, EOMI. Absent: scleral icterus, conjunctival injection, periorbital swelling ENT exam: Present: normal exam, mucous membranes moist Neck exam: Present: normal inspection. Absent: tenderness, meningismus, lymphadenopathy Respiratory exam: Present: normal lung sounds bilaterally. Absent: respiratory distress, wheezes, rales, rhonchi, stridor Cardiovascular Exam: Present: regular rate, normal rhythm, normal heart sounds. Absent: systolic murmur, diastolic murmur, rubs, gallop, clicks GI/Abdominal exam: Present: soft, normal bowel sounds. Absent: distended, tenderness, guarding, rebound, rigid Extremities exam: Present: normal inspection, full ROM, normal capillary refill. Absent: tenderness, pedal edema, joint swelling, calf tenderness Back exam: Present: normal inspection Neurological exam: Present: alert, oriented X3, CN II-XII intact Psychiatric exam: Present: normal affect, normal mood Skin exam: Present: warm, dry, intact, normal color. Absent: rash Course Vital Signs 03/31/24 03/31/24 03/31/24 11:07 14:25 15:46 Temperature 98.9 F Pulse Rate 95 70 84 Pulse Rate [ Pulse Oximetery ] Respiratory 18 18 18 Rate Blood Pressure 179/93 164/86 168/96 O2 Sat by Pulse 95 98 97 Oximetry 03/31/24 03/31/24 03/31/24 18:00 19:46 21:07 Temperature Pulse Rate 90 92 94 Pulse Rate [ Pulse Oximetery ] Respiratory 18 18 18 Rate Blood Pressure 178/85 143/99 183/96 O2 Sat by Pulse 94 L 94 L 96 Oximetry 03/31/24 04/01/24 04/01/24 23:00 03:43 05:16 Temperature Pulse Rate 80 113 H 123 H Pulse Rate [ Pulse Oximetery ] Respiratory 18 18 16 Rate Blood Pressure 150/80 140/91 142/99 O2 Sat by Pulse 96 96 95 Oximetry 04/01/24 04/01/24 04/01/24 06:15 10:00 11:00 Temperature Pulse Rate 124 H 128 H 101 H Pulse Rate [ Pulse Oximetery ] Respiratory 18 18 16 Rate Blood Pressure 131/93 115/79 116/85 O2 Sat by Pulse 94 L 99 Oximetry 04/01/24 04/01/24 14:45 14:53 Temperature Pulse Rate 81 Pulse Rate [ 71 Pulse Oximetery ] Respiratory 16 16 Rate Blood Pressure 128/81 O2 Sat by Pulse 95 Oximetry Medical Decision Making - Medical Decision Making Was pt. sent in by a medical professional or institution (, PA, PHYSICIST [employer], urgent care, hospital, or [facility]...) When possible be specific @ -No Did you speak to anyone other than the patient for history (EMS, parent, family, police, friend...)? What history was obtained from this source @ -Spoke with the patient's daughter for history Did you review nursing and triage notes (agree or disagree)? Why? @ -I reviewed and agree with nursing and triage notes Were old charts reviewed (outside hosp., previous admission, EMS record, old EKG, old radiological studies, urgent care reports/EKG's, [facility] records)? Report findings @ -No old charts were reviewed Differential Diagnosis (chest pain, altered mental status, abdominal pain women, abdominal pain men, vaginal bleeding, weakness, fever, dyspnea, syncope, h eadache, dizziness, GI bleed, back pain, seizure, CVA, palpatations, mental health, musculoskeletal)? @ -Differential Altered Mental Status: Hypoglycemia, DKA, hypercapnia, ETOH, overdose, CO poisoning, trauma, myxedema coma, HTN encephalopathy, infection, encephalitis, psychosis, intercranial hem orrhage, hepatic encephalopathy, meningitis, CVA, this is not meant to be an all-inclusive list EKG interpreted by me (3pts min.). @ -Yes and demonstrates this rhythm with a rate of 91. QRS 88. QTc of 408. No acute ST segment elevations or depressions X-rays interpreted by me (1pt min.). @ -Chest x-ray demonstrates no acute process CT interpreted by me (1pt min.). @ -CT brain and abdomen demonstrate no acute process U/S interpreted by me (1pt. min.). @ -Yes which demonstrates no acute process What testing was considered but not performed or refused? (CT, X-rays, U/S, labs)? Why? @ -None What meds were considered but not given or refused? Why? @ -None Did you discuss the management of the patient with other professionals (professionals i.e. , PA, PHYSICIST [employer], lab, RT, psych nurse, glassworker, clinical laboratory medical director, teacher, correction officer reformatory, disease case manager rn)? Give summary @ -Discussed the case with Dr. Pelaez who will admit the patient Was smoking cessation discussed for >3mins.? @ -No Was critical care preformed (if so, how long)? @ -No Were there social determinants of health that impacted care today? How? (Homelessness, low income, unemployed, alcoholism, drug addiction, transportation, low edu. Level, literacy, decrease access to med. care, usp, rehab)? @ -No Was there de-escalation of care discussed even if they declined (Discuss DNR or withdrawal of care, Hospice)? DNR status @ -No What co-morbidities impacted this encounter? (DM, HTN, Smoking, COPD, CAD, Cancer, CVA, ARF, Chemo, Hep., AIDS, mental health diagnosis, sleep apnea, morbid obesity)? @ -Dementia Was patient admitted / discharged? Hospital course, mention meds given and route, prescriptions, significant lab abnormalities, going to OR and other pertinent info. @ -Upon arrival patient seen and evaluated in trauma 1. Thorough history and physical exam was performed. Daughter states the patient has been confused. She does answer most questions appropriately other than historical data. IV was established. Laboratory studies were conducted. Liver enzymes are markedly elevated. This prompted a CT of the abdomen and gallbladder ultrasound. Patient additionally sent for CT of the brain because of the report of altered mental status. Upon return the results they are discussed with the patient and her daughter. I did recommend admission. I spoke with Dr. Pelaez with a consult placed to GI. Dr. Pelaez recommended that I hold off on antibiotics at this time. Patient will be admitted in stable condition Undiagnosed new problem with uncertain prognosis? @ -Yes Drug Therapy requiring intensive monitoring for toxicity (Heparin, Nitro, Insulin, Cardizem)? @ -No Were any procedures done? @ -No Diagnosis/symptom? @ -Acute encephalopathy, acute transaminitis Acute, or Chronic, or Acute on Chronic? @ -Acute Uncomplicated (without systemic symptoms) or Complicated (systemic symptoms)? @ -Complicated Side effects of treatment? @ -No Exacerbation, Progression, or Severe Exacerbation? @ -No Poses a threat to life or bodily function? How? (Chest pain, [place], [place], pneumonia, PE, COPD, DKA, ARF, appy, cholecystitis, CVA, Diverticulitis, Homicidal, Suicidal, threat to staff... and all critical care pts) @ -No - Lab Data Result diagrams: 04/04/24 06:38 04/04/24 06:38 Lab Results 03/31/24 03/31/24 03/31/24 Range/Units 11:28 11:28 11:28 WBC 18.6 H (3.8-10.6) k/uL RBC 4.32 (3.80-5.40) m/uL Hgb 14.2 (11.4-16.0) gm/dL Hct 41.9 (34.0-46.0) % MCV 97.0 (80.0-100.0) fL MCH 33.0 (25.0-35.0) pg MCHC 34.0 (31.0-37.0) g/dL RDW 14.0 (11.5-15.5) % Plt Count 205 (150-450) k/uL MPV 8.9 Neutrophils % 90 % Lymphocytes % 4 % Monocytes % 4 % Eosinophils % 0 % Basophils % 0 % Neutrophils # 16.9 H (1.3-7.7) k/uL Lymphocytes # 0.8 L (1.0-4.8) k/uL Monocytes # 0.7 (0-1.0) k/uL Eosinophils # 0.1 (0-0.7) k/uL Basophils # 0.1 (0-0.2) k/uL PT 11.9 (10.0-12.5) sec INR 1.1 (<1.2) APTT 21.7 L (22.0-30.0) sec Sodium 141 (137-145) mmol/L Potassium 3.6 (3.5-5.1) mmol/L Chloride 97 L (98-107) mmol/L Carbon Dioxide 38 H (22-30) mmol/L Anion Gap 6 mmol/L BUN 21 H (7-17) mg/dL Creatinine 0.98 (0.52-1.04) mg/dL Est GFR (CKD-EPI)AfAm 63 (>60 ml/min/1.73 sqM) Est GFR (CKD-EPI)NonAf 55 (>60 ml/min/1.73 sqM) Glucose 118 H (74-99) mg/dL Calcium 9.9 (8.4-10.2) mg/dL Total Bilirubin 5.2 H (0.2-1.3) mg/dL AST 3338 H (14-36) U/L ALT 2694 H (4-34) U/L Alkaline Phosphatase 322 H (38-126) U/L Troponin I (0.000-0.034) ng/mL Total Protein 7.3 (6.3-8.2) g/dL Albumin 4.3 (3.5-5.0) g/dL Urine Color Urine Appearance (Clear) Urine pH (5.0-8.0) Ur Specific Ross (1.001-1.035) Urine Protein (Negative) Urine Glucose (UA) (Negative) Urine Ketones (Negative) Urine Blood (Negative) Urine Nitrite (Negative) Urine Bilirubin (Negative) Urine Urobilinogen (<2.0) mg/dL Ur Leukocyte Esterase (Negative) Urine RBC (0-5) /hpf Urine WBC (0-5) /hpf Ur Squamous Epith Cells (0-4) /hpf Urine Bacteria (None) /hpf Hepatitis A IgM Ab (Nonreactive) Hep Bs Antigen (Nonreactive) Hep B Core IgM Ab (Nonreactive) Hep C IgG Ab (Nonreactive) 03/31/24 03/31/24 03/31/24 Range/Units 11:28 11:28 12:05 WBC (3.8-10.6) k/uL RBC (3.80-5.40) m/uL Hgb (11.4-16.0) gm/dL Hct (34.0-46.0) % MCV (80.0-100.0) fL MCH (25.0-35.0) pg MCHC (31.0-37.0) g/dL RDW (11.5-15.5) % Plt Count (150-450) k/uL MPV Neutrophils % % Lymphocytes % % Monocytes % % Eosinophils % % Basophils % % Neutrophils # (1.3-7.7) k/uL Lymphocytes # (1.0-4.8) k/uL Monocytes # (0-1.0) k/uL Eosinophils # (0-0.7) k/uL Basophils # (0-0.2) k/uL PT (10.0-12.5) sec INR (<1.2) APTT (22.0-30.0) sec Sodium (137-145) mmol/L Potassium (3.5-5.1) mmol/L Chloride (98-107) mmol/L Carbon Dioxide (22-30) mmol/L Anion Gap mmol/L BUN (7-17) mg/dL Creatinine (0.52-1.04) mg/dL Est GFR (CKD-EPI)AfAm (>60 ml/min/1.73 sqM) Est GFR (CKD-EPI)NonAf (>60 ml/min/1.73 sqM) Glucose (74-99) mg/dL Calcium (8.4-10.2) mg/dL Total Bilirubin (0.2-1.3) mg/dL AST (14-36) U/L ALT (4-34) U/L Alkaline Phosphatase (38-126) U/L Troponin I 0.115 H* (0.000-0.034) ng/mL Total Protein (6.3-8.2) g/dL Albumin (3.5-5.0) g/dL Urine Color Yellow Urine Appearance Clear (Clear) Urine pH 7.5 (5.0-8.0) Ur Specific Ross 1.013 (1.001-1.035) Urine Protein 1+ H (Negative) Urine Glucose (UA) Negative (Negative) Urine Ketones Negative (Negative) Urine Blood Small H (Negative) Urine Nitrite Negative (Negative) Urine Bilirubin Negative (Negative) Urine Urobilinogen <2.0 (<2.0) mg/dL Ur Leukocyte Esterase Moderate H (Negative) Urine RBC 4 (0-5) /hpf Urine WBC 14 H (0-5) /hpf Ur Squamous Epith Cells 2 (0-4) /hpf Urine Bacteria Occasional H (None) /hpf Hepatitis A IgM Ab Nonreactive (Nonreactive) Hep Bs Antigen Nonreactive (Nonreactive) Hep B Core IgM Ab Nonreactive (Nonreactive) Hep C IgG Ab Nonreactive (Nonreactive) Disposition Clinical Impression: Acute encephalopathy, Transaminitis, Leukocytosis, NSTEMI (non-ST elevated myocardial infarction) Disposition: ADMITTED IP TO THIS [facility] Condition: Stable Is patient prescribed a controlled substance at d/c from ED?: No Time of Disposition: 15:27 Decision to Admit Reason: Admit from EC Decision Date: 03/31/24 Decision Time: 15:27
[2024-03-31 15:35] LABS: Glucose,Whole Blood 122 mg/dL (70-110)
[2024-03-31] MEDS: SODIUM CHLORIDE 0.9% 1,000 ML IV SCH (15:43)
[2024-03-31] MEDS: PIPERACILLIN-TAZOBACTAM 3.375 GM in SODIUM CHLORIDE 0.9% 100 ML IVPB SCH (15:44)
--- NOTE | 2024-03-31 16:07 | US ---
EXAMINATION TYPE: US gallbladder DATE OF EXAM: 03/31/2024 COMPARISON: The same day CT CLINICAL INDICATION: Female, 78 years old with history of liver enzyme elevation; Elevated labs TECHNIQUE: Grayscale and color Doppler imaging of the right upper quadrant was performed. FINDINGS: EXAM MEASUREMENTS: Liver Length: 12.2 cm Gallbladder Wall: 0.1 cm CBD: 1.2 cm Right Kidney: 6.6 x 3.2 x 3.3 cm INTERNSHIP COORDINATOR NOTES: Pancreas: 3mm panc duct visualized, tail obscured by overlying bowel gas Liver: Visualized portions appeared wnl Gallbladder: Lumen clear Evidence for sonographic Tenorio's sign: No CBD: Dilated Right Kidney: No evidence of hydro, small in size IMPRESSION: No evidence for acute process. [facility], Workstation: [facility], 03/31/2024 4:05 PM
[2024-03-31] MEDS ORDERED: ALBUTEROL NEBULIZED 2.5 MG/3 ML INHALATION PRN (17:48)
[2024-03-31] MEDS: SYMBICORT 160-4.5 MCG INHALER INHALATION SCH (18:18)
--- NOTE | 2024-03-31 18:29 | P.HPIM ---
History of Present Illness H&P Date: 03/31/24 Chief Complaint: Altered sensorium very pleasant 78-year-old patient of Dr. Zbigniew Gary. Chronic stable medical conditions include GERD, hyperlipidemia, hypertension, osteoarthritis, paroxysmal atrial fibrillation, varicose veins, diverticulosis. very hard of hearing and does lipreading. watchman procedure done by Dr. Concepcion at [facility] on 05/2020.. SLUMS-examination suggestive of dementia.-Not severe. Patient has chronic left eye ptosis and left nasolabial weakening. September 01, 2023: Patient underwent cervical spine/thoracic spine surgery by Dr. Wilson. Takes Melville twice a day for the same. As per the ER notes patient presents with some altered mentation. No fever no chills. Appetite okay. Has some pain which is chronic in the neck. Patient found to have increased liver enzymes. Patient does take Melville twice a day. Also on statin. No fever chills diarrhea etc. reported. Some decrease in appetite. No abdominal pain. Review of systems: GEN.: Tired, some decreased appetite EYES: None HEENT: Very hard of hearing NECK: None RESPIRATORY: None CARDIOVASCULAR: None GASTROINTESTINAL: None GENITOURINARY: None MUSCULOSKELETAL: Joint pains LYMPHATICS: None HEMATOLOGICAL: None PSYCHIATRY: None NEUROLOGICAL: As above Past medical history to include: Asthma, GERD, hyperlipidemia, hypertension, osteoarthritis, paroxysmal atrial fibrillation, varicose veins, stomach ulcer, diverticulitis. Esophagitis, rdaha ritis, internal/external hemorrhoids, watchman procedure, esophagitis, internal hemorrhoids. Right carotid 50-69% stenosis. Cervical spine surgery Social history: Does not smoke or drink Cold. Lives alone. Physical examination: VITAL SIGNS: 98.9, 95, 18, 1 78-85, 94% room air GENERAL: Up in bed, awake a bit anxious EYES: Pupils equal. Conjunctiva pale. HEENT: External appearance of nose and ears normal, oral cavity grossly normal. Very hard of hearing NECK: JVD not raised. Mass not palpable. HEART: Heart sounds irregular l, no edema. LUNGS: Respiratory rate normal, decreased breaths sounds. ABDOMEN: Soft, nontender, liver spleen not palpable, no masses palpable. PSYCH: Able to hold on to a regular conversation. Slight forgetfulness. MUSCULAR skeletal:: Evidence of OA especially in the hands. NEUROLOGICAL: Cranial nerves grossly intact; no facial asymmetry, power fair in all 4 limbs INVESTIGATIONS, reviewed in the clinical context: March 31, 2024: White count 18.6 hemoglobin 14.2 platelets 205 sodium 141 potassium 3.6 BUN 21 creatinine 0.98 total bilirubin 5.2 AST 3338. ALT 2694. Alkaline phosphatase 322. Ammonia 11. Troponin I 0.0115 UA: Leukoesterase moderate, WBC 14. EKG tracing personally reviewed by me-normal sinus rhythm Chest x-ray film personally reviewed by me-some cardiomegaly CT brain: Nonspecific findings CT abdomen pelvis: Mild cardiomegaly. Nothing acute Gallbladder ultrasound: CBD dilated. Assessment and plan: -Altered mentation likely from hepatic encephalopathy. Ammonia 11. -Acute severe hepatitis. Patient denies any abdominal pain. No diarrhea. No fever no chills. Patient is hepatooffensive medication includes pravastatin and Melville twice daily.-Both will be held Acute hepatitis panel -Chronic neck pain from cervical spine surgery on September 01, 2023 Hold Tylenol. Keep back -Mild cognitive impairment. [Previous SLUMS examination, was given by the speech therapist. 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 Nonvisualization of the right vertebral artery Baby aspirin. With Dr. Mota/vascular -Internal hemorrhoids. - moderate persistent asthma, Symbicort -COPD in secondhand smoke exposure Bronchodilators -GERD, on PPI -Hyperlipidemia, Hold Pravachol -Essential hypertension, Cardizem 60 mg 3 times daily, Cozaar 50 mg nightly, Lopressor 50 mg 3 times daily -Primary osteoarthritis, K-pad as needed -Paroxysmal atrial fibrillation, currently sinus rhythm Cardizem 60 mg 3 times daily. Metoprolol 50 mg 3 times daily -Chronic Esophagitis and gastritis., On PPI -Very hard of hearing Hearing aids -Full code Care was discussed with the patient and granddaughter at bedside. Questions answered. Past Medical History Past Medical History: Atrial Fibrillation, Asthma, COPD, GERD/Reflux, GI Bleed, Hyperlipidemia, Hypertension, Osteoarthritis (OA), Pneumonia, Vascular Disorder Additional Past Medical History / Comment(s): [place], Bronchitis, gastric ulcer, diverticular disease, lower GI bleed/AV malformation with ablation, benign colon polyp, borderline hyperlipidemia, arthritis mostly in back, slight bilateral glaucoma, varicosities. History of Any Multi-Drug Resistant Organisms: None Reported Past Surgical History: Adenoidectomy, Appendectomy, Heart Catheterization, Hysterectomy, Tonsillectomy, Tubal Ligation Additional Past Surgical History / Comment(s): Colonoscopy/benign polypectomy/AV malformation ablation, bilateral cataract removals, watchmen procedure Past Anesthesia/Blood Transfusion Reactions: No Reported Reaction Additional Past Anesthesia/Blood Transfusion Reaction / Comment(s): never recieved blood before. Past Psychological History: No Psychological Hx Reported Smoking Status: Never smoker Past Alcohol Use History: None Reported Past Drug Use History: None Reported - Past Family History Father Family Medical History: COPD Additional Family Medical History / Comment(s): EMPHYSEMA Mother Family Medical History: Osteoarthritis (OA) Additional Family Medical History / Comment(s): EMPHYSEMA, BOWEL OBSTRUCTION/COLOSTOMY Medications and Allergies Home Medications Medication Instructions Recorded Confirmed Type Pravastatin Sodium [Pravachol] 40 mg PO DAILY 07/20/15 03/31/24 History Latanoprost [Xalatan 0.005%] 1 drop BOTH EYES HS 10/15/16 03/31/24 History Budesonide/Formoterol Fumarate 2 puff INHALATION RT-BID 08/11/17 03/31/24 History [Symbicort 160-4.5 Mcg Inhaler] Omeprazole 20 mg PO DAILY 06/25/20 03/31/24 History Ascorbic Acid [Vitamin C] 1,000 mg PO DAILY 08/30/23 03/31/24 History Cholecalciferol [Vitamin D3 (125 125 mcg PO DAILY 08/30/23 03/31/24 History Mcg = 5000 Iu)] Folic Acid 0.8 mg PO DAILY 08/30/23 03/31/24 History Potassium Chloride [Klor-Con M10] 20 meq PO DAILY 08/30/23 03/31/24 History Pyridoxine [Vitamin B-6] 100 mg PO DAILY 08/30/23 03/31/24 History HYDROcodone/APAP 7.5-325MG [[place] 1 tab PO Q6HR PRN #24 tab 09/06/23 03/31/24 Rx 7.5-325] Losartan [Cozaar] 50 mg PO HS #1 tab 09/06/23 03/31/24 Rx Albuterol Sulfate [Albuterol 2 puff PO RT-QID PRN 03/31/24 03/31/24 History Sulfate Hfa] Diltiazem Oral [Cardizem*] 60 mg PO BID 03/31/24 03/31/24 History Metoprolol Tartrate [Lopressor] 50 mg PO BID 03/31/24 03/31/24 History hydroCHLOROthiazide 12.5 mg PO DAILY 03/31/24 03/31/24 History Allergies Allergy/AdvReac Type Severity Reaction Status Date / Time No Known Allergies Allergy Verified 03/31/24 16:13 Physical Exam Vitals: Vital Signs Temp Pulse Resp BP Pulse Ox 03/31/24 18:00 90 18 178/85 94 L 03/31/24 15:46 84 18 168/96 97 03/31/24 14:25 70 18 164/86 98 03/31/24 11:07 98.9 F 95 18 179/93 95 Intake and Output 03/31/24 03/31/24 03/31/24 06:59 14:59 22:59 Other: Weight 47.627 kg Results CBC & Chem 7: 03/31/24 11:28 03/31/24 11:28 Labs: Abnormal Lab Results - Last 24 Hours (Table) 03/31/24 03/31/24 03/31/24 Range/Units 11:28 11:28 11:28 WBC 18.6 H (3.8-10.6) k/uL Neutrophils # 16.9 H (1.3-7.7) k/uL Lymphocytes # 0.8 L (1.0-4.8) k/uL APTT 21.7 L (22.0-30.0) sec Chloride 97 L (98-107) mmol/L Carbon Dioxide 38 H (22-30) mmol/L BUN 21 H (7-17) mg/dL Glucose 118 H (74-99) mg/dL POC Glucose (mg/dL) (70-110) mg/dL Total Bilirubin 5.2 H (0.2-1.3) mg/dL AST 3338 H (14-36) U/L ALT 2694 H (4-34) U/L Alkaline Phosphatase 322 H (38-126) U/L Troponin I (0.000-0.034) ng/mL Urine Protein (Negative) Urine Blood (Negative) Ur Leukocyte Esterase (Negative) Urine WBC (0-5) /hpf Urine Bacteria (None) /hpf 03/31/24 03/31/24 03/31/24 Range/Units 11:28 12:05 15:33 WBC (3.8-10.6) k/uL Neutrophils # (1.3-7.7) k/uL Lymphocytes # (1.0-4.8) k/uL APTT (22.0-30.0) sec Chloride (98-107) mmol/L Carbon Dioxide (22-30) mmol/L BUN (7-17) mg/dL Glucose (74-99) mg/dL POC Glucose (mg/dL) 122 H (70-110) mg/dL Total Bilirubin (0.2-1.3) mg/dL AST (14-36) U/L ALT (4-34) U/L Alkaline Phosphatase (38-126) U/L Troponin I 0.115 H* (0.000-0.034) ng/mL Urine Protein 1+ H (Negative) Urine Blood Small H (Negative) Ur Leukocyte Esterase Moderate H (Negative) Urine WBC 14 H (0-5) /hpf Urine Bacteria Occasional H (None) /hpf
[2024-03-31] MEDS: LOSARTAN 50 MG TAB PO SCH (21:04)
[2024-03-31] MEDS: DILTIAZEM ORAL 60 MG TAB PO SCH (21:04)
[2024-03-31] MEDS: METOPROLOL TARTRATE 50 MG TAB PO SCH (21:05)
[2024-03-31] MEDS: LATANOPROST 0.005% OPHTH DROPS 2.5 ML BTL BOTH EYES SCH (22:36)
[2024-04-01] MEDS: DILTIAZEM 5 MG/ML 5 ML VIAL IVP STA (04:24)
[2024-04-01 04:34] LABS: Hepatitis A Antibody IgM Nonreactive (Nonreactive); Hepatitis B Core IgM Nonreactive (Nonreactive); Hepatitis B Surface Antigen Nonreactive (Nonreactive); Hepatitis C IgG Antibody Nonreactive (Nonreactive)
[2024-04-01] MEDS: DILTIAZEM DRIP BOLUS FROM BAG 1 MG SOLN IV ONE (04:46)
[2024-04-01] MEDS: DILTIAZEM 125 MG in SODIUM CHLORIDE 0.9% 100 ML IV SCH (04:46)
[2024-04-01 07:35] LABS: Basophils % (A) 0 %; Eosinophils % (A) 0 %; HCT 46.8 % (34.0-46.0); HGB 15.3 gm/dL (11.4-16.0); Lymphocytes % (A) 7 %; MCH 32.9 pg (25.0-35.0); MCHC 32.6 g/dL (31.0-37.0); MCV 100.9 fL (80.0-100.0); Macrocytosis Slight; Mean Platelet Volume 8.4; Monocytes # (A) 0.6 k/uL (0-1.0); Monocytes % (A) 4 %; Neutrophils # (A) 13.4 k/uL (1.3-7.7); Neutrophils % (A) 87 %; Platelet Count 182 k/uL (150-450); RBC 4.64 m/uL (3.80-5.40); RDW 13.6 % (11.5-15.5); WBC 15.3 k/uL (3.8-10.6)
[2024-04-01 08:11] LABS: African American GFR (CKD) 76 (>60 ml/min/1.73 sqM); Alkaline Phosphatase 272 U/L (38-126); Anion Gap 7 mmol/L; Blood Urea Nitrogen 20 mg/dL (7-17); Calcium 9.6 mg/dL (8.4-10.2); Carbon Dioxide 30 mmol/L (22-30); Chloride 101 mmol/L (98-107); Glucose 115 mg/dL (74-99); Non-African American GFR(CKD) 66 (>60 ml/min/1.73 sqM); Potassium 3.4 mmol/L (3.5-5.1); Sodium 138 mmol/L (137-145); Total Bilirubin 5.4 mg/dL (0.2-1.3); Total Protein 7.1 g/dL (6.3-8.2)
[2024-04-01 08:42] LABS: AST 1211 U/L (14-36)
[2024-04-01 08:43] LABS: ALT 1623 U/L (4-34)
[2024-04-01] MEDS: METOPROLOL TARTRATE 50 MG TAB PO SCH (10:13)
[2024-04-01] MEDS: PANTOPRAZOLE 40 MG TABLET PO SCH (10:16)
[2024-04-01] MEDS: FOLIC ACID 1 MG TAB PO SCH (10:16)
--- NOTE | 2024-04-01 11:02 | P.GSCN ---
History of Present Illness Consult date: 04/01/24 History of present illness: CHIEF COMPLAINT: Altered mental status HISTORY OF PRESENT ILLNESS: This is a 78-year-old female who presented to the hospital with altered mental status. She also has been having an upset stomach and epigastric pain x 2 days. Patient is very hard of hearing and has a history of dementia. The daughter is at bedside. She reports that 2 nights ago patient did have episode of vomiting and complained of epigastric abdominal pain. But due to her mother becoming more and more confused she brought her mother in for further evaluation. CT scan of the abdomen revealed no acute findings. Gallbladder ultrasound was unremarkable. And the daughter was concerned to that her mother may have taken extra Casa. Patient has chronic back and neck pain. Patient had elevated liver enzymes and elevated total bilirubin. Hepatitis panel was negative. Patient has had no recent traveling. No new medications. And no sick contacts. Denies any alcohol use. Surgical service consulted in regards to elevated LFTs. Patient is currently on a Cardizem drip for A-fib. Followed by cardiology. PAST MEDICAL HISTORY: See Below PAST SURGICAL HISTORY: See below MEDICATIONS: See below ALLERGIES: See below SOCIAL HISTORY: No illicit drug use. REVIEW OF SYSTEMS: CONSTITUTIONAL: Denies fever or chills. HEENT: Denies blurred vision, vision changes, or eye pain. Denies hemoptysis CARDIOVASCULAR: Denies chest pain or pressure. RESPIRATORY: No shortness of breath. GASTROINTESTINAL: See HPI for pertinent findings HEMATOLOGIC: Denies bleeding disorders. GENITOURINARY: Denies any blood in urine or increased urinary frequency. SKIN: Denies pruitis. Denies rash. PHYSICAL EXAM: VITAL SIGNS: Reviewed GENERAL: Well-developed in no acute distress. HEENT: Sclera icterus present ABDOMEN: Soft. Nondistended. Minimal tenderness palpation of epigastric area NEUROLOGIC: awake and alert. hear of hearing LABORATORY DATA: WBC 18.6 down to 15.3 Hgb 15.3 platelets 182 Sodium 138 potassium 3.4 creatinine 0.85 Total bilirubin 5.2 down to 5.4 AST 3338 down to 1211 ALT 2694 down to 1623 alk phos 272 Troponin elevated 0.115 Tylenol level less than 10 hepatitis panel negative Ammonia level 11 IMAGING: CT scan abdomen pelvis reports no CT evidence for acute abdominal pelvic process. Mild increase in size of left ovarian indeterminant cystic lesion measuring up to 2.6 cm. Further evaluation with outpatient pelvic ultrasound recommended. Mild cardiomegaly with small pericardial effusion. Gallbladder ultrasound no evidence of acute process ASSESSMENT: 1. Hepatitis with elevated LFTs. Gallbladder ultrasound reporting no acute process 2. Altered mental status PLAN: -No surgical intervention planned -Continue supportive care -GI service on consult Physician Auto Overhauler note has been reviewed by physician. Signing provider agrees with the documented findings, assessment, and plan of care. Attestation Patient seen and examined at bedside in the emergency department. She presented secondary to altered mental status. She does have a history of dementia and is hard of hearing. She was found to have significant elevation in her transaminases on admission. CT showed no acute abdominal or pelvic process. Ultrasound of the gallbladder was performed with no evidence of acute process. Likely hepatitis related. Await GI recommendations. Further recommendations based on patient's clinical progress. Eugenia Oh DO Past Medical History Past Medical History: Atrial Fibrillation, Asthma, COPD, GERD/Reflux, GI Bleed, Hyperlipidemia, Hypertension, Osteoarthritis (OA), Pneumonia, Vascular Disorder Additional Past Medical History / Comment(s): [place], Bronchitis, gastric ulcer, diverticular disease, lower GI bleed/AV malformation with ablation, benign colon polyp, borderline hyperlipidemia, arthritis mostly in back, slight bilateral glaucoma, varicosities. History of Any Multi-Drug Resistant Organisms: None Reported Past Surgical History: Adenoidectomy, Appendectomy, Heart Catheterization, Hysterectomy, Tonsillectomy, Tubal Ligation Additional Past Surgical History / Comment(s): Colonoscopy/benign polypectomy/AV malformation ablation, bilateral cataract removals, watchmen procedure Past Anesthesia/Blood Transfusion Reactions: No Reported Reaction Additional Past Anesthesia/Blood Transfusion Reaction / Comm: never recieved blood before. Past Psychological History: No Psychological Hx Reported Smoking Status: Never smoker Past Alcohol Use History: None Reported Past Drug Use History: None Reported - Past Family History Father Family Medical History: COPD Additional Family Medical History / Comment(s): EMPHYSEMA Mother Family Medical History: Osteoarthritis (OA) Additional Family Medical History / Comment(s): EMPHYSEMA, BOWEL OBSTRUCTION/COLOSTOMY Medications and Allergies Home Medications Medication Instructions Recorded Confirmed Type Pravastatin Sodium [Pravachol] 40 mg PO DAILY 07/20/15 03/31/24 History Latanoprost [Xalatan 0.005%] 1 drop BOTH EYES HS 10/15/16 03/31/24 History Budesonide/Formoterol Fumarate 2 puff INHALATION RT-BID 08/11/17 03/31/24 History [Symbicort 160-4.5 Mcg Inhaler] Omeprazole 20 mg PO DAILY 06/25/20 03/31/24 History Ascorbic Acid [Vitamin C] 1,000 mg PO DAILY 08/30/23 03/31/24 History Cholecalciferol [Vitamin D3 (125 125 mcg PO DAILY 08/30/23 03/31/24 History Mcg = 5000 Iu)] Folic Acid 0.8 mg PO DAILY 08/30/23 03/31/24 History Potassium Chloride [Klor-Con M10] 20 meq PO DAILY 08/30/23 03/31/24 History Pyridoxine [Vitamin B-6] 100 mg PO DAILY 08/30/23 03/31/24 History HYDROcodone/APAP 7.5-325MG [[place] 1 tab PO Q6HR PRN #24 tab 09/06/23 03/31/24 Rx 7.5-325] Losartan [Cozaar] 50 mg PO HS #1 tab 09/06/23 03/31/24 Rx Albuterol Sulfate [Albuterol 2 puff PO RT-QID PRN 03/31/24 03/31/24 History Sulfate Hfa] Diltiazem Oral [Cardizem*] 60 mg PO BID 03/31/24 03/31/24 History Metoprolol Tartrate [Lopressor] 50 mg PO BID 03/31/24 03/31/24 History hydroCHLOROthiazide 12.5 mg PO DAILY 03/31/24 03/31/24 History Allergies Allergy/AdvReac Type Severity Reaction Status Date / Time No Known Allergies Allergy Verified 03/31/24 16:13 Surgical - Exam Osteopathic Statement: *. No significant issues noted on an osteopathic structural exam other than those noted in the History and Physical/Consult. Vital Signs Temp Pulse Resp BP Pulse Ox 98.9 F 95 18 179/93 95 03/31/24 11:07 03/31/24 11:07 03/31/24 11:07 03/31/24 11:07 03/31/24 11:07 Results - Labs 04/01/24 07:08 04/01/24 07:08 Abnormal Lab Results - Last 24 Hours (Table) 03/31/24 03/31/24 03/31/24 Range/Units 11:28 11:28 11:28 WBC 18.6 H (3.8-10.6) k/uL Hct (34.0-46.0) % MCV (80.0-100.0) fL Neutrophils # 16.9 H (1.3-7.7) k/uL Lymphocytes # 0.8 L (1.0-4.8) k/uL APTT 21.7 L (22.0-30.0) sec Potassium (3.5-5.1) mmol/L Chloride 97 L (98-107) mmol/L Carbon Dioxide 38 H (22-30) mmol/L BUN 21 H (7-17) mg/dL Glucose 118 H (74-99) mg/dL POC Glucose (mg/dL) (70-110) mg/dL Total Bilirubin 5.2 H (0.2-1.3) mg/dL AST 3338 H (14-36) U/L ALT 2694 H (4-34) U/L Alkaline Phosphatase 322 H (38-126) U/L Troponin I (0.000-0.034) ng/mL Urine Protein (Negative) Urine Blood (Negative) Ur Leukocyte Esterase (Negative) Urine WBC (0-5) /hpf Urine Bacteria (None) /hpf 03/31/24 03/31/24 03/31/24 Range/Units 11:28 12:05 15:33 WBC (3.8-10.6) k/uL Hct (34.0-46.0) % MCV (80.0-100.0) fL Neutrophils # (1.3-7.7) k/uL Lymphocytes # (1.0-4.8) k/uL APTT (22.0-30.0) sec Potassium (3.5-5.1) mmol/L Chloride (98-107) mmol/L Carbon Dioxide (22-30) mmol/L BUN (7-17) mg/dL Glucose (74-99) mg/dL POC Glucose (mg/dL) 122 H (70-110) mg/dL Total Bilirubin (0.2-1.3) mg/dL AST (14-36) U/L ALT (4-34) U/L Alkaline Phosphatase (38-126) U/L Troponin I 0.115 H* (0.000-0.034) ng/mL Urine Protein 1+ H (Negative) Urine Blood Small H (Negative) Ur Leukocyte Esterase Moderate H (Negative) Urine WBC 14 H (0-5) /hpf Urine Bacteria Occasional H (None) /hpf 04/01/24 04/01/24 Range/Units 07:08 07:08 WBC 15.3 H (3.8-10.6) k/uL Hct 46.8 H (34.0-46.0) % MCV 100.9 H (80.0-100.0) fL Neutrophils # 13.4 H (1.3-7.7) k/uL Lymphocytes # (1.0-4.8) k/uL APTT (22.0-30.0) sec Potassium 3.4 L (3.5-5.1) mmol/L Chloride (98-107) mmol/L Carbon Dioxide (22-30) mmol/L BUN 20 H (7-17) mg/dL Glucose 115 H (74-99) mg/dL POC Glucose (mg/dL) (70-110) mg/dL Total Bilirubin 5.4 H (0.2-1.3) mg/dL AST 1211 H (14-36) U/L ALT 1623 H (4-34) U/L Alkaline Phosphatase 272 H (38-126) U/L Troponin I (0.000-0.034) ng/mL Urine Protein (Negative) Urine Blood (Negative) Ur Leukocyte Esterase (Negative) Urine WBC (0-5) /hpf Urine Bacteria (None) /hpf Microbiology - Last 24 Hours (Table) 03/31/24 15:19 Blood Culture Gram Stain - Preliminary Blood Blood Culture - Preliminary Molecular ID Diabetes panel 03/31/24 04/01/24 Range/Units 11:28 07:08 Sodium 141 138 (137-145) mmol/L Potassium 3.6 3.4 L (3.5-5.1) mmol/L Chloride 97 L 101 (98-107) mmol/L Carbon Dioxide 38 H 30 (22-30) mmol/L BUN 21 H 20 H (7-17) mg/dL Creatinine 0.98 0.85 (0.52-1.04) mg/dL Glucose 118 H 115 H (74-99) mg/dL Calcium 9.9 9.6 (8.4-10.2) mg/dL AST 3338 H 1211 H (14-36) U/L ALT 2694 H 1623 H (4-34) U/L Alkaline Phosphatase 322 H 272 H (38-126) U/L Total Protein 7.3 7.1 (6.3-8.2) g/dL Albumin 4.3 4.0 (3.5-5.0) g/dL Calcium panel 03/31/24 04/01/24 Range/Units 11:28 07:08 Calcium 9.9 9.6 (8.4-10.2) mg/dL Albumin 4.3 4.0 (3.5-5.0) g/dL Pituitary panel 03/31/24 04/01/24 Range/Units 11:28 07:08 Sodium 141 138 (137-145) mmol/L Potassium 3.6 3.4 L (3.5-5.1) mmol/L Chloride 97 L 101 (98-107) mmol/L Carbon Dioxide 38 H 30 (22-30) mmol/L BUN 21 H 20 H (7-17) mg/dL Creatinine 0.98 0.85 (0.52-1.04) mg/dL Glucose 118 H 115 H (74-99) mg/dL Calcium 9.9 9.6 (8.4-10.2) mg/dL Adrenal panel 03/31/24 04/01/24 Range/Units 11:28 07:08 Sodium 141 138 (137-145) mmol/L Potassium 3.6 3.4 L (3.5-5.1) mmol/L Chloride 97 L 101 (98-107) mmol/L Carbon Dioxide 38 H 30 (22-30) mmol/L BUN 21 H 20 H (7-17) mg/dL Creatinine 0.98 0.85 (0.52-1.04) mg/dL Glucose 118 H 115 H (74-99) mg/dL Calcium 9.9 9.6 (8.4-10.2) mg/dL Total Bilirubin 5.2 H 5.4 H (0.2-1.3) mg/dL AST 3338 H 1211 H (14-36) U/L ALT 2694 H 1623 H (4-34) U/L Alkaline Phosphatase 322 H 272 H (38-126) U/L Total Protein 7.3 7.1 (6.3-8.2) g/dL Albumin 4.3 4.0 (3.5-5.0) g/dL
--- NOTE | 2024-04-01 11:24 | P.CRDCN ---
History of Present Illness History of present illness: HISTORY OF PRESENT ILLNESS: This is a 78-year-old female with a past medical history significant for hypertension, hyperlipidemia, paroxysmal atrial fibrillation, Watchman device at [facility], and mild dementia. Patient follows in the office with Dr. Mckee. We have been asked to see the patient in consultation for A-fib with RVR. Patient examined at the bedside in the emergency room. Patient is sitting up in the chair. Patient's daughter is present. Patient is somewhat confused this morning. Majority of history is obtained from the daughter at the bedside. She states 2 nights ago she had some lower quadrant abdominal pain and was belching. She states she did not really think much else of it at the time. She states yesterday when she went up to check on her in the morning she was just walking around her bedroom and appeared confused. She did not realize that it was morning. She states that her mother does have a history of mild dementia but is able to care for herself and take all her own medications. She gives additional history that her mother is prescribed Molt on an outpatient basis. She states that she takes 2 Molt a day and she gives her a 5-day supply at a time. She states that she found an extra bottle of Molt at the house and now it is gone and believes her mother may have been taking multiple Molt over the past 1 to 2 days as she was confused. DIAGNOSTICS: - EKG reveals sinus mechanism with no signs of acute ischemia. Repeat EKG r eveals A-fib with RVR. - Chest xray negative for acute process. COPD changes. Cardiomegaly. - Ultrasound of the gallbladder, dilated common bile duct with no evidence of acute process - Laboratory data: WBC 15.3. Hemoglobin 15.3. Platelet count 182. Sodium 138. Potassium 3.4. BUN 20. Creatinine 0.85. AST 1211. ALT 1623. Troponin 0.115. - Current home cardiac medications include Cardizem 60 mg twice a day, losartan 50 mg at night, metoprolol tartrate 50 mg twice a day, Pravachol 40 mg daily, hydrochlorothiazide 12.5 mg daily - Most recent echocardiogram obtained in August 2023 revealed ejection fraction 55 to 60%, no obvious regional wall motion abnormalities, trace MR, mild TR - Cardiac catheterization history: Unknown REVIEW OF SYSTEMS: At the time of my exam: CONSTITUTIONAL: Denies fever or chills. HEENT: Denies blurred vision, vision changes, or eye pain. Denies hemoptysis CARDIOVASCULAR: Denies chest pain. Denies orthopnea. Denies PND. Denies palpitations RESPIRATORY: Denies shortness of breath. GASTROINTESTINAL: Denies abdominal pain. Denies nausea or vomiting. HEMATOLOGIC: Denies bleeding disorders. GENITOURINARY: Denies any blood in urine. SKIN: Denies pruitis. Denies rash. PHYSICAL EXAM: VITAL SIGNS: Reviewed. GENERAL: Well-developed in no acute distress. HEENT: Head is normocephalic. Pupils are equal, round. Sclerae anicteric. Mucous membranes of the mouth are moist. Neck supple. No JVD or thyromegaly LUNGS: Respirations even and unlabored. Lungs essentially clear to auscultation bilaterally. HEART: Irregular rate and rhythm. S1 and S2 heard. ABDOMEN: Soft. Nondistended. Nontender. EXTREMITIES: Normal range of motion. No clubbing or cyanosis. Peripheral pulses intact. No lower extremity edema NEUROLOGIC: Awake and alert. ASSESSMENT: Altered mental status Transaminitis Leukocytosis Bacteremia, blood cultures positive for gram-negative bacilli Paroxysmal atrial fibrillation with RVR Hypertension Hyperlipidemia History of Watchman device, at [facility] History of pulmonary embolism with IVC filter implantation History of GI bleed History of mild dementia PLAN: No need to obtain echocardiogram at this time Discontinue IV Cardizem Continue oral Cardizem Increase metoprolol to tartrate to 100 mg twice a day Continue telemetry monitoring Patient not anticoagulated as outpatient basis secondary to history of Watchman device GI and general surgery are consulted for evaluation. Await recommendations Further recommendations pending patient course Nurse practitioner note has been reviewed by physician. Signing provider agrees with the documented findings, assessment, and plan of care documented by CHROME POLISHER as a scribe. Past Medical History Past Medical History: Atrial Fibrillation, Asthma, COPD, GERD/Reflux, GI Bleed, Hyperlipidemia, Hypertension, Osteoarthritis (OA), Pneumonia, Vascular Disorder Additional Past Medical History / Comment(s): [place], Bronchitis, gastric ulcer, diverticular disease, lower GI bleed/AV malformation with ablation, benign colon polyp, borderline hyperlipidemia, arthritis mostly in back, slight bilateral glaucoma, varicosities. History of Any Multi-Drug Resistant Organisms: None Reported Past Surgical History: Adenoidectomy, Appendectomy, Heart Catheterization, Hysterectomy, Tonsillectomy, Tubal Ligation Additional Past Surgical History / Comment(s): Colonoscopy/benign polypectomy/AV malformation ablation, bilateral cataract removals, watchmen procedure Past Anesthesia/Blood Transfusion Reactions: No Reported Reaction Additional Past Anesthesia/Blood Transfusion Reaction / Comment(s): never re cieved blood before. Past Psychological History: No Psychological Hx Reported Smoking Status: Never smoker Past Alcohol Use History: None Reported Past Drug Use History: None Reported - Past Family History Father Family Medical History: COPD Additional Family Medical History / Comment(s): EMPHYSEMA Mother Family Medical History: Osteoarthritis (OA) Additional Family Medical History / Comment(s): EMPHYSEMA, BOWEL OBSTRUCTION/COLOSTOMY Medications and Allergies Home Medications Medication Instructions Recorded Confirmed Type Pravastatin Sodium [Pravachol] 40 mg PO DAILY 07/20/15 03/31/24 History Latanoprost [Xalatan 0.005%] 1 drop BOTH EYES HS 10/15/16 03/31/24 History Budesonide/Formoterol Fumarate 2 puff INHALATION RT-BID 08/11/17 03/31/24 History [Symbicort 160-4.5 Mcg Inhaler] Omeprazole 20 mg PO DAILY 06/25/20 03/31/24 History Ascorbic Acid [Vitamin C] 1,000 mg PO DAILY 08/30/23 03/31/24 History Cholecalciferol [Vitamin D3 (125 125 mcg PO DAILY 08/30/23 03/31/24 History Mcg = 5000 Iu)] Folic Acid 0.8 mg PO DAILY 08/30/23 03/31/24 History Potassium Chloride [Klor-Con M10] 20 meq PO DAILY 08/30/23 03/31/24 History Pyridoxine [Vitamin B-6] 100 mg PO DAILY 08/30/23 03/31/24 History HYDROcodone/APAP 7.5-325MG [[place] 1 tab PO Q6HR PRN #24 tab 09/06/23 03/31/24 Rx 7.5-325] Losartan [Cozaar] 50 mg PO HS #1 tab 09/06/23 03/31/24 Rx Albuterol Sulfate [Albuterol 2 puff PO RT-QID PRN 03/31/24 03/31/24 History Sulfate Hfa] Diltiazem Oral [Cardizem*] 60 mg PO BID 03/31/24 03/31/24 History Metoprolol Tartrate [Lopressor] 50 mg PO BID 03/31/24 03/31/24 History hydroCHLOROthiazide 12.5 mg PO DAILY 03/31/24 03/31/24 History Allergies Allergy/AdvReac Type Severity Reaction Status Date / Time No Known Allergies Allergy Verified 03/31/24 16:13 Physical Exam Vitals: Vital Signs Temp Pulse Resp BP Pulse Ox 04/01/24 06:15 124 H 18 131/93 94 L 04/01/24 05:16 123 H 16 142/99 95 04/01/24 03:43 113 H 18 140/91 96 03/31/24 23:00 80 18 150/80 96 03/31/24 21:07 94 18 183/96 96 03/31/24 19:46 92 18 143/99 94 L 03/31/24 18:00 90 18 178/85 94 L 03/31/24 15:46 84 18 168/96 97 03/31/24 14:25 70 18 164/86 98 03/31/24 11:07 98.9 F 95 18 179/93 95 Results 04/01/24 07:08 04/01/24 07:08 Cardiac Enzymes 03/31/24 03/31/24 Range/Units 11:28 11:28 AST 3338 H (14-36) U/L Troponin I 0.115 H* (0.000-0.034) ng/mL Coagulation 03/31/24 Range/Units 11:28 PT 11.9 (10.0-12.5) sec APTT 21.7 L (22.0-30.0) sec CBC 03/31/24 04/01/24 Range/Units 11:28 07:08 WBC 18.6 H 15.3 H (3.8-10.6) k/uL RBC 4.32 4.64 (3.80-5.40) m/uL Hgb 14.2 15.3 (11.4-16.0) gm/dL Hct 41.9 46.8 H (34.0-46.0) % Plt Count 205 182 (150-450) k/uL Comprehensive Metabolic Panel 03/31/24 Range/Units 11:28 Sodium 141 (137-145) mmol/L Potassium 3.6 (3.5-5.1) mmol/L Chloride 97 L (98-107) mmol/L Carbon Dioxide 38 H (22-30) mmol/L BUN 21 H (7-17) mg/dL Creatinine 0.98 (0.52-1.04) mg/dL Glucose 118 H (74-99) mg/dL Calcium 9.9 (8.4-10.2) mg/dL AST 3338 H (14-36) U/L ALT 2694 H (4-34) U/L Alkaline Phosphatase 322 H (38-126) U/L Total Protein 7.3 (6.3-8.2) g/dL Albumin 4.3 (3.5-5.0) g/dL Current Medications Generic Name Dose Route Start Last Admin Trade Name Freq PRN Reason Stop Dose Admin Albuterol Sulfate 2.5 mg 03/31/24 17:48 Albuterol Nebulized 2.5 Mg/3 Ml INHALATION RT-QID PRN Shortness Of Breath Budesonide/Formoterol Fumarate 2 puff 03/31/24 20:00 03/31/24 18:18 Symbicort 160-4.5 Mcg Inhaler INHALATION 2 puff RT-BID RIGOBERTO Administration Diltiazem HCl 60 mg 03/31/24 21:00 03/31/24 21:04 Diltiazem Oral 60 Mg Tab PO 60 mg BID RIGOBERTO Administration Folic Acid 1 mg 04/01/24 09:00 Folic Acid 1 Mg Tab PO DAILY RIGOBERTO Sodium Chloride 1,000 mls @ 75 mls/hr 03/31/24 15:30 04/01/24 04:46 Saline 0.9% IV Not Given .[id number] RIGOBERTO Ceftriaxone Sodium 2 gm/ 50 mls @ 100 mls/hr 04/01/24 09:00 Sodium Chloride IVPB Q24HR RIGOBERTO Latanoprost 1 drops 03/31/24 21:00 03/31/24 22:36 Latanoprost 0.005% Ophth Drops 2.5 Ml Btl BOTH EYES 1 drops HS RIGOBERTO Administration Losartan Potassium 50 mg 03/31/24 21:00 03/31/24 21:04 Losartan 50 Mg Tab PO 50 mg HS RIGOBERTO Administration Metoprolol Tartrate 100 mg 04/01/24 09:00 Metoprolol Tartrate 50 Mg Tab PO BID RIGOBERTO Naloxone HCl 0.2 mg 03/31/24 15:27 Naloxone 0.4 Mg/Ml 1 Ml Vial IV Q2M PRN Opioid Reversal Pantoprazole Sodium 40 mg 04/01/24 09:00 Pantoprazole 40 Mg Tablet PO DAILY [facility] 04/01/24 07:08 03/31/24 11:28
--- NOTE | 2024-04-01 13:05 | P.CONS ---
History of Present Illness - Reason for Consult Consult date: 04/01/24 Transaminitis Requesting physician: Gretta Walton - Chief Complaint Weakness - History of Present Illness This is a pleasant 78-year-old female who presented to the hospital with altered mental status. She reported had an episode of epigastric pain that wrapped around both of her sides which she states lasted about 2 minutes. No further abdominal pain and no associated nausea or vomiting. States she just has not been feeling well over the last couple days. Past medical history includes atrial fibrillation, history of GI bleed with AVM, arthritis, chronic neck pain, dementia, asthma, COPD, GERD, hyperlipidemia and hypertension. Patient was noted to have an elevated liver enzymes. CT scan of the abdomen revealed no acute findings. Gallbladder ultrasound was unremarkable. Gastroenterology was consulted for transaminitis. Patient currently denies any abdominal pain, nausea or vomiting. She denies any history of liver disease. She denies any new medications. States that she has been eating well. Hepatitis panel was nonreactive. On admission total bilirubin 5.2 AST 3338 ALT 2694 alkaline phosphatase 322 ammonia 11 Today's labs WBC 15.3 hemoglobin 15.3 platelet count 182,000 sodium 138 potassium 3.4 BUN 20 creatinine 0.8 total bilirubin 5.4 AST 1211 ALT 1623 alkaline phosphatase 272 ammonia 11 acetaminophen less than 10 Review of Systems REVIEW OF SYSTEMS: CARDIOPULMONARY: No chest pain or shortness of breath. Gastrointestinal: Episode of epigastric pain that subsided. No current abdominal pain. No nausea or vomiting. No hematemesis, coffee-ground emesis. No rectal bleeding, or melena. GENITOURINARY: No dysuria or hematuria. MUSCULOSKELETAL: Reports normal range of motion., Joint pain. Chronic neck pain. SKIN: No rashes. No jaundice. ENDOCRINE: No chills, fevers. No excessive weight gain or loss. No polydipsia or polyuria. PSYCHIATRIC: Unremarkable. NEUROLOGY: No change in mental status. Denies dizziness, headache. ENT: Vision unremarkable. CONSTITUTIONAL: No recent weight loss. No fever, chills, night sweats. Past Medical History Past Medical History: Atrial Fibrillation, Asthma, COPD, GERD/Reflux, GI Bleed, Hyperlipidemia, Hypertension, Osteoarthritis (OA), Pneumonia, Vascular Disorder Additional Past Medical History / Comment(s): [id number], Bronchitis, gastric ulcer, diverticular disease, lower GI bleed/AV malformation with ablation, benign colon polyp, borderline hyperlipidemia, arthritis mostly in back, slight bilateral glaucoma, varicosities. History of Any Multi-Drug Resistant Organisms: None Reported Past Surgical History: Adenoidectomy, Appendectomy, Heart Catheterization, Hysterectomy, Tonsillectomy, Tubal Ligation Additional Past Surgical History / Comment(s): Colonoscopy/benign polypectomy/AV malformation ablation, bilateral cataract removals, watchmen procedure Past Anesthesia/Blood Transfusion Reactions: No Reported Reaction Additional Past Anesthesia/Blood Transfusion Reaction / Comm: never recieved blood before. Past Psychological History: No Psychological Hx Reported Smoking Status: Never smoker Past Alcohol Use History: None Reported Past Drug Use History: None Reported - Past Family History Father Family Medical History: COPD Additional Family Medical History / Comment(s): EMPHYSEMA Mother Family Medical History: Osteoarthritis (OA) Additional Family Medical History / Comment(s): EMPHYSEMA, BOWEL OBSTRUCTION/COLOSTOMY Medications and Allergies Home Medications Medication Instructions Recorded Confirmed Type Pravastatin Sodium [Pravachol] 40 mg PO DAILY 07/20/15 03/31/24 History Latanoprost [Xalatan 0.005%] 1 drop BOTH EYES HS 10/15/16 03/31/24 History Budesonide/Formoterol Fumarate 2 puff INHALATION RT-BID 08/11/17 03/31/24 History [Symbicort 160-4.5 Mcg Inhaler] Omeprazole 20 mg PO DAILY 06/25/20 03/31/24 History Ascorbic Acid [Vitamin C] 1,000 mg PO DAILY 08/30/23 03/31/24 History Cholecalciferol [Vitamin D3 (125 125 mcg PO DAILY 08/30/23 03/31/24 History Mcg = 5000 Iu)] Folic Acid 0.8 mg PO DAILY 08/30/23 03/31/24 History Potassium Chloride [Klor-Con M10] 20 meq PO DAILY 08/30/23 03/31/24 History Pyridoxine [Vitamin B-6] 100 mg PO DAILY 08/30/23 03/31/24 History HYDROcodone/APAP 7.5-325MG [[place] 1 tab PO Q6HR PRN #24 tab 09/06/23 03/31/24 Rx 7.5-325] Losartan [Cozaar] 50 mg PO HS #1 tab 09/06/23 03/31/24 Rx Albuterol Sulfate [Albuterol 2 puff PO RT-QID PRN 03/31/24 03/31/24 History Sulfate Hfa] Diltiazem Oral [Cardizem*] 60 mg PO BID 03/31/24 03/31/24 History Metoprolol Tartrate [Lopressor] 50 mg PO BID 03/31/24 03/31/24 History hydroCHLOROthiazide 12.5 mg PO DAILY 03/31/24 03/31/24 History Allergies Allergy/AdvReac Type Severity Reaction Status Date / Time No Known Allergies Allergy Verified 03/31/24 16:13 Physical Exam Vitals: Vital Signs Temp Pulse Resp BP Pulse Ox 04/01/24 06:15 124 H 18 131/93 94 L 04/01/24 05:16 123 H 16 142/99 95 04/01/24 03:43 113 H 18 140/91 96 03/31/24 23:00 80 18 150/80 96 03/31/24 21:07 94 18 183/96 96 03/31/24 19:46 92 18 143/99 94 L 03/31/24 18:00 90 18 178/85 94 L 03/31/24 15:46 84 18 168/96 97 03/31/24 14:25 70 18 164/86 98 03/31/24 11:07 98.9 F 95 18 179/93 95 General appearance: The patient is alert, oriented, appears in no acute distress. HET: Head is normocephalic and atraumatic. Conjunctiva pink. Sclera anicteric. Hard of hearing. Neck: Supple without lymphadenopathy. Trachea midline. Heart: Regular. Lungs: Equal expansion, normal respiratory effort. Abdomen: Soft, nontender, nondistended. Skin: No rashes. No jaundice. Extremities: Normal skin color and turgor. No pedal edema. Neurological: No focal deficits. Alert and oriented x3. Results CBC & Chem 7: 04/01/24 07:08 04/01/24 07:08 Labs: Abnormal Lab Results - Last 24 Hours (Table) 03/31/24 03/31/24 03/31/24 Range/Units 11:28 11:28 11:28 WBC 18.6 H (3.8-10.6) k/uL Hct (34.0-46.0) % MCV (80.0-100.0) fL Neutrophils # 16.9 H (1.3-7.7) k/uL Lymphocytes # 0.8 L (1.0-4.8) k/uL APTT 21.7 L (22.0-30.0) sec Potassium (3.5-5.1) mmol/L Chloride 97 L (98-107) mmol/L Carbon Dioxide 38 H (22-30) mmol/L BUN 21 H (7-17) mg/dL Glucose 118 H (74-99) mg/dL POC Glucose (mg/dL) (70-110) mg/dL Total Bilirubin 5.2 H (0.2-1.3) mg/dL AST 3338 H (14-36) U/L ALT 2694 H (4-34) U/L Alkaline Phosphatase 322 H (38-126) U/L Troponin I (0.000-0.034) ng/mL Urine Protein (Negative) Urine Blood (Negative) Ur Leukocyte Esterase (Negative) Urine WBC (0-5) /hpf Urine Bacteria (None) /hpf 03/31/24 03/31/24 03/31/24 Range/Units 11:28 12:05 15:33 WBC (3.8-10.6) k/uL Hct (34.0-46.0) % MCV (80.0-100.0) fL Neutrophils # (1.3-7.7) k/uL Lymphocytes # (1.0-4.8) k/uL APTT (22.0-30.0) sec Potassium (3.5-5.1) mmol/L Chloride (98-107) mmol/L Carbon Dioxide (22-30) mmol/L BUN (7-17) mg/dL Glucose (74-99) mg/dL POC Glucose (mg/dL) 122 H (70-110) mg/dL Total Bilirubin (0.2-1.3) mg/dL AST (14-36) U/L ALT (4-34) U/L Alkaline Phosphatase (38-126) U/L Troponin I 0.115 H* (0.000-0.034) ng/mL Urine Protein 1+ H (Negative) Urine Blood Small H (Negative) Ur Leukocyte Esterase Moderate H (Negative) Urine WBC 14 H (0-5) /hpf Urine Bacteria Occasional H (None) /hpf 04/01/24 04/01/24 Range/Units 07:08 07:08 WBC 15.3 H (3.8-10.6) k/uL Hct 46.8 H (34.0-46.0) % MCV 100.9 H (80.0-100.0) fL Neutrophils # 13.4 H (1.3-7.7) k/uL Lymphocytes # (1.0-4.8) k/uL APTT (22.0-30.0) sec Potassium 3.4 L (3.5-5.1) mmol/L Chloride (98-107) mmol/L Carbon Dioxide (22-30) mmol/L BUN 20 H (7-17) mg/dL Glucose 115 H (74-99) mg/dL POC Glucose (mg/dL) (70-110) mg/dL Total Bilirubin 5.4 H (0.2-1.3) mg/dL AST 1211 H (14-36) U/L ALT 1623 H (4-34) U/L Alkaline Phosphatase 272 H (38-126) U/L Troponin I (0.000-0.034) ng/mL Urine Protein (Negative) Urine Blood (Negative) Ur Leukocyte Esterase (Negative) Urine WBC (0-5) /hpf Urine Bacteria (None) /hpf Microbiology - Last 24 Hours (Table) 03/31/24 15:19 Blood Culture Gram Stain - Preliminary Blood Blood Culture - Preliminary Molecular ID Comments: CT abdomen pelvis with contra reports no CT evidence for an acute abdominal/pelvic process. Mild increase in size of left ovarian indeterminate cystic lesion measuring up to 2.6 cm. Further evaluation with outpatient pelvic ultrasound is recommended. Mild cardiomegaly with small pericardial effusion. Gallbladder ultrasound reports no evidence for acute process. Assessment and Plan (1) Acute hepatitis Narrative/Plan: 78-year-old female presenting with altered mental status changes and weakness was noted to have significantly elevated liver enzyme studies. No previous history of liver disease, denies any history of alcoholism. Patient states she had epigastric abdominal pain that radiated around her side yesterday lasting only a few moments. No further abdominal pain. No new medications. Unclear etiology of transaminitis, possible hypoperfusion. Patient was also diagnosed with bacteremia with positive E. coli blood cultures. Abdominal ultrasound and CAT scan without any acute process however abdominal ultrasound does report a CBD of 1.2 cm which can be seen with CBD dilation/obstruction, and with bacteremia need to consider possible ascending cholangitis. Acute hepatitis panel nonreactive. Will plan for MRCP. Current Visit: Yes Status: Acute Code(s): B17.9 - ACUTE VIRAL HEPATITIS, UNS PECIFIED SNOMED Code(s): 93785892 (2) Transaminitis Current Visit: Yes Status: Acute Code(s): R74.01 - ELEVATION OF LEVELS OF LIVER TRANSAMINASE LEVELS SNOMED Code(s): 096414310 (3) Altered mental status Current Visit: No Status: Acute Code(s): R41.82 - ALTERED MENTAL STATUS, UNSPECIFIED SNOMED Code(s): 415683837 (4) Atrial fibrillation Current Visit: No Status: Acute Code(s): I48.91 - UNSPECIFIED ATRIAL FIBRILLATION SNOMED Code(s): 64798117 (5) Bacteremia Current Visit: Yes Status: Acute Code(s): R78.81 - BACTEREMIA SNOMED Code(s): 0576468 Plan: 1. Continue symptomatic and supportive care 2. Avoid hepatotoxic medications 3. Daily CBC, CMP 4. Will order MRCP 5. Continue with IV antibiotics 6.. General Surgery on consultation 7. Further recommendations based on clinical course Thank you for this consultation, we will continue to follow. Dr. Christiano Mckee I agree with the dictator's note, documented as a scribe by Pebbles Muñiz.
--- NOTE | 2024-04-01 17:17 | P.PN ---
Progress Note - Text Progress Note Date: 04/01/24 Chief Complaint: Altered sensorium very pleasant 78-year-old patient of Dr. Zbigniew Gary. Chronic stable medical conditions include GERD, hyperlipidemia, hypertension, osteoarthritis, paroxysmal atrial fibrillation, varicose veins, diverticulosis. very hard of hearing and does lipreading. watchman procedure done by Dr. Concepcion at [facility] on 05/2020.. SLUMS-examination suggestive of dementia.-Not severe. Patient has chronic left eye ptosis and left nasolabial weakening. September 01, 2023: Patient underwent cervical spine/thoracic spine surgery by Dr. Wilson. Takes [place] twice a day for the same. As per the ER notes patient presents with some altered mentation. No fever no chills. Appetite okay. Has some pain which is chronic in the neck. Patient found to have increased liver enzymes. Patient does take [place] twice a day. Also on statin. No fever chills diarrhea etc. reported. Some decrease in appetite. No abdominal pain. April 01: Admitted with acute severe hepatitis. Appears to be noninfectious. Patient's statin and [place] was discontinued. Denies abdominal pain. Some improvement in LFTs. Resting bed. Acute hepatitis panel negative. MRCP ordered by GI. Molecular ID identified E. coli in the blood. Given IV ceftriaxone. Active Medications Albuterol Sulfate (Albuterol Nebulized 2.5 Mg/3 Ml) 2.5 mg INHALATION RT-QID PRN PRN Reason: Shortness Of Breath Budesonide/Formoterol Fumarate (Symbicort 160-4.5 Mcg Inhaler) 2 puff INHALATION RT-BID [facility] Last Admin: 04/01/24 08:48 Dose: 2 puff Diltiazem HCl (Diltiazem Oral 60 Mg Tab) 60 mg PO BID [facility] Last Admin: 04/01/24 10:16 Dose: 60 mg Folic Acid (Folic Acid 1 Mg Tab) 1 mg PO DAILY [facility] Last Admin: 04/01/24 10:16 Dose: 1 mg Sodium Chloride (Saline 0.9%) 1,000 mls @ 75 mls/hr IV .[id number] [facility] Last Admin: 04/01/24 04:46 Dose: Not Given Ceftriaxone Sodium 2 gm/ (Sodium Chloride) 50 mls @ 100 mls/hr IVPB Q24HR [facility] Last Admin: 04/01/24 10:09 Dose: 100 mls/hr Latanoprost (Latanoprost 0.005% Ophth Drops 2.5 Ml Btl) 1 drops BOTH EYES [facility] Last Admin: 03/31/24 22:36 Dose: 1 drops Losartan Potassium (Losartan 50 Mg Tab) 50 mg PO HS [facility] Last Admin: 03/31/24 21:04 Dose: 50 mg Metoprolol Tartrate (Metoprolol Tartrate 50 Mg Tab) 100 mg PO BID [facility] Last Admin: 04/01/24 10:13 Dose: 100 mg Naloxone HCl (Naloxone 0.4 Mg/Ml 1 Ml Vial) 0.2 mg IV Q2M PRN PRN Reason: Opioid Reversal Pantoprazole Sodium (Pantoprazole 40 Mg Tablet) 40 mg PO DAILY [facility] Last Admin: 04/01/24 10:16 Dose: 40 mg Past medical history to include: Asthma, GERD, hyperlipidemia, hypertension, osteoarthritis, paroxysmal atrial fibrillation, varicose veins, stomach ulcer, diverticulitis. Esophagitis, gastritis, internal/external hemorrhoids, watchman procedure, esophagitis, internal hemorrhoids. Right carotid 50-69% stenosis. Cervical spine surgery Social history: Does not smoke or drink Cold. Lives alone. Physical examination: VITAL SIGNS: 97.9, 81, 16, 147 x 68, 94% room air GENERAL: Resting in bed EYES: Pupils equal. Conjunctiva pale. HEENT: External appearance of nose and ears normal, oral cavity grossly normal. Very hard of hearing NECK: JVD not raised. Mass not palpable. HEART: Heart sounds irregular l, no edema. LUNGS: Respiratory rate normal, decreased breaths sounds. ABDOMEN: Soft, nontender, liver spleen not palpable, no masses palpable. PSYCH: Able to hold on to a regular conversation. Slight forgetfulness. MUSCULAR skeletal:: Evidence of OA especially in the hands. NEUROLOGICAL: Cranial nerves grossly intact; no facial asymmetry, power fair in all 4 limbs INVESTIGATIONS, reviewed in the clinical context: April 01: White count 15.3 hemoglobin 15.3 platelets 180 Antonio sodium 138 creatinine 0.85 AST 1211 ALT 1623 Acute hepatitis panel: Negative March 31, 2024: White count 18.6 hemoglobin 14.2 platelets 205 sodium 141 potassium 3.6 BUN 21 creatinine 0.98 total bilirubin 5.2 AST 3338. ALT 2694. Alkaline phosphatase 322. Ammonia 11. Troponin I 0.0115 UA: Leukoesterase moderate, WBC 14. EKG tracing personally reviewed by me-normal sinus rhythm Chest x-ray film personally reviewed by me-some cardiomegaly CT brain: Nonspecific findings CT abdomen pelvis: Mild cardiomegaly. Nothing acute Gallbladder ultrasound: CBD dilated. Assessment and plan: -Altered mentation likely from hepatic encephalopathy.: Improved Ammonia 11. -Acute severe hepatitis.: Slow improvement Patient denies any abdominal pain. No diarrhea. No fever no chills. Patient is hepatooffensive medication includes pravastatin and [place] twice daily.-Both will be held Acute hepatitis panel-negative MRCP ordered -Chronic neck pain from cervical spine surgery on September 01, 2023 Hold Tylenol. Keep back -Mild cognitive impairment. [Previous SLUMS examination, was given by the speech therapist. 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 Nonvisualization of the right vertebral artery Baby aspirin. With Dr. Mota/vascular -Internal hemorrhoids. - moderate persistent asthma, Symbicort -COPD in secondhand smoke exposure Bronchodilators -GERD, on PPI -Hyperlipidemia, Hold Pravachol -Essential hypertension, Cardizem 60 mg 3 times daily, Cozaar 50 mg nightly, Lopressor 50 mg 3 times daily -Primary osteoarthritis, K-pad as needed -Paroxysmal atrial fibrillation, currently sinus rhythm Cardizem 60 mg 3 times daily. Metoprolol 50 mg 3 times daily -Chronic Esophagitis and gastritis., On PPI -Very hard of hearing Hearing aids -Full code Continue to hold statin and [place]. Follow LFTs. MRCP ordered by GI. Follow Past Medical History Past Medical History: Atrial Fibrillation, Asthma, COPD, GERD/Reflux, GI Bleed, Hyperlipidemia, Hypertension, Osteoarthritis (OA), Pneumonia, Vascular Disorder Additional Past Medical History / Comment(s): [place], Bronchitis, gastric ulcer, diverticular disease, lower GI bleed/AV malformation with ablation, benign colon polyp, borderline hyperlipidemia, arthritis mostly in back, slight bilateral glaucoma, varicosities. History of Any Multi-Drug Resistant Organisms: None Reported Past Surgical History: Adenoidectomy, Appendectomy, Heart Catheterization, Hysterectomy, Tonsillectomy, Tubal Ligation Additional Past Surgical History / Comment(s): Colonoscopy/benign polypectomy/AV malformation ablation, bilateral cataract removals, watchmen procedure Past Anesthesia/Blood Transfusion Reactions: No Reported Reaction Additional Past Anesthesia/Blood Transfusion Reaction / Comment(s): never recieved blood before. Past Psychological History: No Psychological Hx Reported Smoking Status: Never smoker Past Alcohol Use History: None Reported Past Drug Use History: None Reported
[2024-04-01] MEDS: POTASSIUM CHLORIDE ER 20 MEQ TAB.ER PO STA (17:47)
[2024-04-02 08:09] LABS: AST 345 U/L (14-36); African American GFR (CKD) 57 (>60 ml/min/1.73 sqM); Albumin 3.4 g/dL (3.5-5.0); Alkaline Phosphatase 240 U/L (38-126); Anion Gap 5 mmol/L; Blood Urea Nitrogen 24 mg/dL (7-17); Calcium 9.7 mg/dL (8.4-10.2); Carbon Dioxide 33 mmol/L (22-30); Chloride 103 mmol/L (98-107); Glucose 99 mg/dL (74-99); Non-African American GFR(CKD) 49 (>60 ml/min/1.73 sqM); Potassium 3.9 mmol/L (3.5-5.1); Sodium 141 mmol/L (137-145); Total Bilirubin 3.1 mg/dL (0.2-1.3); Total Protein 6.3 g/dL (6.3-8.2)
[2024-04-02 08:17] LABS: ALT 938 U/L (4-34)
[2024-04-02] MEDS ORDERED: DILTIAZEM ORAL 60 MG TAB PO SCH (11:15)
--- NOTE | 2024-04-02 12:12 | MR ---
EXAMINATION TYPE: MR MRCP DATE OF EXAM: 04/02/2024 10:50 AM COMPARISON: The sixth 2020. CLINICAL INDICATION: Female, 78 years old with history of transaminitis,; PHH, Transaminitis TECHNIQUE: Multi planar, T2-weighted imaging with and without fat saturation and chemical shift imag ing was performed of the abdomen. Then, heavily T2 weighted imaging (half-Fourier acquisition single- shot turbo spin-echo) was utilized in order to study the biliary system. Maximum intensity projectio n images were reconstructed from the original data of the biliary tree. 3D images were created on a [employer] work station. No Gadolinium given. FINDINGS: Lower Thorax: No evidence for acute process. There is mildly enlarged for size. MRCP: * The intrahepatic ducts have a normal appearance. * The extrahepatic ducts have a normal appearance. * The common hepatic duct measures 9 mm in size. * The common bile duct at the level of the pancreatic head measures 7 mm in size. * The pancreatic duct is normal. Traditional main pancreatic duct anatomy. * The gallbladder appears unremarkable. No evidence for cholelithiasis or wall thickening. Abdomen: Liver: No evidence for hepatic steatosis or cirrhosis. No evidence for mass. Pancreas: No ductal dilation. No evidence for solid mass. Spleen: Normal for size. Adrenal glands: Unremarkable. Kidneys: Lower T2 signal left superior kidney 16 mm lesion which is indeterminate. No evidence for ob structive uropathy. No suspicious renal masses. Stomach and Bowel: No evidence for bowel wall thickening or evidence for obstruction. Retroperitoneum/Peritoneum: No evidence of pneumoperitoneum or free fluid. Vasculature: No aortic aneurysm. Musculoskeletal: The osseous structures appear intact., Scoliosis changes to the spine. Lymph Nodes: No gross evidence for lymphadenopathy. Abdominal wall: Unremarkable. IMPRESSION: 1. The liver is within normal limits no evidence for mass. No evidence for cirrhosis or steatosis. 2. Extra hepatic biliary dilation which is within normal limits for patient's age. No evidence for c holedocholithiasis or biliary stricture. 3. No evidence for cholelithiasis. 4. Indeterminate left superior renal lesion which is hyperdense on CT imaging. Seen dating back to 2 021 likely representing proteinaceous/hemorrhagic cyst. Findings could be confirmed with MRI with IV contrast. [facility], , 04/02/2024 12:09 PM
--- NOTE | 2024-04-02 12:29 | P.PN ---
Subjective HISTORY OF PRESENT ILLNESS: This is a 78-year-old female with a past medical history significant for hypertension, hyperlipidemia, paroxysmal atrial fibrillation, Watchman device at [facility], and mild dementia. Patient follows in the office with Dr. Mckee. We have been asked to see the patient in consultation for A-fib with RVR. Patient examined at the bedside in the emergency room. Patient is sitting up in the chair. Patient's daughter is present. Patient is somewhat confused this morning. Majority of history is obtained from the daughter at the bedside. She states 2 nights ago she had some lower quadrant abdominal pain and was belching. She states she did not really think much else of it at the time. She states yesterday when she went up to check on her in the morning she was just walking around her bedroom and appeared confused. She did not realize that it was morning. She states that her mother does have a history of mild dementia but is able to care for herself and take all her own medications. She gives additional history that her mother is prescribed Aurora on an outpatient basis. She states that she takes 2 Aurora a day and she gives her a 5-day supply at a time. She states that she found an extra bottle of Aurora at the house and now it is gone and believes her mother may have been taking multiple Aurora over the past 1 to 2 days as she was confused. DIAGNOSTICS: - EKG reveals sinus mechanism with no signs of acute ischemia. Repeat EKG reveals A-fib with RVR. - Chest xray negative for acute process. COPD changes. Cardiomegaly. - Ultrasound of the gallbladder, dilated common bile duct with no evidence of acute process - Laboratory data: WBC 15.3. Hemoglobin 15.3. Platelet count 182. Sodium 138. Potassium 3.4. BUN 20. Creatinine 0.85. AST 1211. ALT 1623. Troponin 0.115. - Current home cardiac medications include Cardizem 60 mg twice a day, losartan 50 mg at night, metoprolol tartrate 50 mg twice a day, Pravachol 40 mg daily, hydrochlorothiazide 12.5 mg daily - Most recent echocardiogram obtained in August 2023 revealed ejection fraction 55 to 60%, no obvious regional wall motion abnormalities, trace MR, mild TR - Cardiac catheterization history: Unknown 04/02/2024 Patient examined this morning the bedside. Patient currently denies chest pain or pressure. Denies shortness of breath. Telemetry reveals sinus mechanism. Blood pressure is elevated with a systolic in the 160s this morning PHYSICAL EXAM: VITAL SIGNS: Reviewed. GENERAL: Well-developed in no acute distress. HEENT: Head is normocephalic. Pupils are equal, round. Sclerae anicteric. Mucous membranes of the mouth are moist. Neck supple. No JVD or thyromegaly LUNGS: Respirations even and unlabored. Lungs essentially clear to auscultation bilaterally. HEART: Regular rate and rhythm. S1 and S2 heard. ABDOMEN: Soft. Nondistended. Nontender. EXTREMITIES: Normal range of motion. No clubbing or cyanosis. Peripheral pulses intact. No lower extremity edema NEUROLOGIC: Awake and alert. ASSESSMENT: Altered mental status Transaminitis Leukocytosis Bacteremia, blood cultures positive for gram-negative bacilli Paroxysmal atrial fibrillation with RVR, currently maintaining sinus mechanism Hypertension Hyperlipidemia History of Watchman device, at [facility] History of pulmonary embolism with IVC filter implantation History of GI bleed History of mild dementia PLAN: No need to obtain echocardiogram at this time Continue current cardiac medications Increase losartan to 75 mg at night. Continue to monitor blood pressure. Patient not anticoagulated as outpatient basis secondary to history of Watchman device No further inpatient recommendations from a cardiac standpoint We will sign off. Please reconsult if needed. Nurse practitioner note has been reviewed by physician. Signing provider agrees with the documented findings, assessment, and plan of care documented by MICROPHONE OPERATOR as a scribe. Objective - Vital Signs Vital signs: Vital Signs Temp 98.4 F 04/02/24 08:00 Pulse 67 04/02/24 11:19 Resp 16 04/02/24 11:19 BP 165/77 04/02/24 11:19 Pulse Ox 95 04/02/24 11:19 FiO2 Intake & Output 04/01/24 04/02/24 04/02/24 18:59 06:59 18:59 Intake Total 240 20 10 Output Total 1 Balance 240 19 10 Weight 47.627 kg 48.2 kg Intake: IV 20 10 Invasive Line 1 20 10 Oral 240 Output: Urine 1 Other: Voiding Method Toilet Toilet Toilet Diaper Diaper Diaper # Voids 1 # Bowel Movements 2 - Labs CBC & Chem 7: 04/01/24 07:08 04/02/24 07:26 Labs: Abnormal Lab Results - Last 24 Hours (Table) 04/02/24 Range/Units 07:26 Carbon Dioxide 33 H (22-30) mmol/L BUN 24 H (7-17) mg/dL Creatinine 1.08 H (0.52-1.04) mg/dL Total Bilirubin 3.1 H (0.2-1.3) mg/dL AST 345 H (14-36) U/L ALT 938 H (4-34) U/L Alkaline Phosphatase 240 H (38-126) U/L Albumin 3.4 L (3.5-5.0) g/dL Microbiology - Last 24 Hours (Table) 03/31/24 15:19 Blood Culture Gram Stain - Preliminary Blood Blood Culture - Preliminary Escherichia coli Molecular ID
--- NOTE | 2024-04-02 13:09 | P.PN ---
Subjective Progress Note Date: 04/02/24 Principal diagnosis: Transaminitis This is a pleasant 78-year-old female who presented to the hospital with altered mental status. She reported had an episode of epigastric pain that wrapped around both of her sides which she states lasted about 2 minutes. No further abdominal pain and no associated nausea or vomiting. States she just has not been feeling well over the last couple days. Past medical history includes atrial fibrillation, history of GI bleed with AVM, arthritis, chronic neck pain, dementia, asthma, COPD, GERD, hyperlipidemia and hypertension. Patient was noted to have an elevated liver enzymes. CT scan of the abdomen revealed no acute findings. Gallbladder ultrasound was unremarkable. Gastroenterology was consulted for transaminitis. Patient currently denies any abdominal pain, nausea or vomiting. She denies any history of liver disease. She denies any new medications. States that she has been eating well. Hepatitis panel was nonreactive. On admission total bilirubin 5.2 AST 3338 ALT 2694 alkaline phosphatase 322 ammonia 11 Today's labs WBC 15.3 hemoglobin 15.3 platelet count 182,000 sodium 138 potassium 3.4 BUN 20 creatinine 0.8 total bilirubin 5.4 AST 1211 ALT 1623 alkaline phosphatase 272 ammonia 11 acetaminophen less than 10 03/03/2024 Patient is seen and examined today as a follow-up. She was going down for her MRCP. She denied any abdominal pain, nausea or vomiting. LFTs are trending down. MRCP is resulted without any findings of choledocholithiasis, biliary dilation reported as normal for patient's age. She is afebrile. Today bilirubin 3.1 down from 5.4 AST 345 down from 1211 AST 938 down from 1623 and alkaline phosphatase at 240 down from 272 Objective - Vital Signs Vital signs: Vital Signs Temp 98.4 F 04/02/24 08:00 Pulse 79 04/02/24 08:00 Resp 16 04/02/24 08:00 BP 161/82 04/02/24 08:00 Pulse Ox 93 L 04/02/24 08:00 FiO2 Intake & Output 04/01/24 04/02/24 04/02/24 18:59 06:59 18:59 Intake Total 240 20 10 Output Total 1 Balance 240 19 10 Weight 47.627 kg 48.2 kg Intake: IV 20 10 Invasive Line 1 20 10 Oral 240 Output: Urine 1 Other: Voiding Method Toilet Toilet Diaper Diaper # Voids 1 # Bowel Movements 2 - Exam General appearance: The patient is alert, oriented, appears in no acute distres s. HET: Head is normocephalic and atraumatic. Conjunctiva pink. Sclera anicteric. Neck: Supple without lymphadenopathy. Abdomen: Soft, nontender, no hepatomegaly, nondistended. Extremities: Normal skin color and turgor. No pedal edema Skin: No rashes, no jaundice Neurological: No focal deficits. Alert and oriented. - Labs CBC & Chem 7: 04/01/24 07:08 04/02/24 07:26 Labs: Abnormal Lab Results - Last 24 Hours (Table) 04/02/24 Range/Units 07:26 Carbon Dioxide 33 H (22-30) mmol/L BUN 24 H (7-17) mg/dL Creatinine 1.08 H (0.52-1.04) mg/dL Total Bilirubin 3.1 H (0.2-1.3) mg/dL AST 345 H (14-36) U/L ALT 938 H (4-34) U/L Alkaline Phosphatase 240 H (38-126) U/L Albumin 3.4 L (3.5-5.0) g/dL Microbiology - Last 24 Hours (Table) 03/31/24 15:19 Blood Culture Gram Stain - Preliminary Blood Blood Culture - Preliminary Molecular ID Assessment and Plan (1) Acute hepatitis Narrative/Plan: 78-year-old female presenting with altered mental status changes and weakness was noted to have significantly elevated liver enzyme studies. No previous history of liver disease, denies any history of alcoholism. Patient states she had epigastric abdominal pain that radiated around her side yesterday lasting only a few moments. No further abdominal pain. No new medications. Unclear etiology of transaminitis, possible hypoperfusion. Patient was also diagnosed with bacteremia with positive E. coli blood cultures. Abdominal ultrasound and CAT scan without any acute process however abdominal ultrasound does report a CBD of 1.2 cm which can be seen with CBD dilation/obstruction, and with bacteremia need to consider possible ascending cholangitis. Acute hepatitis panel nonreactive. MRCP no filling defect noted. Findings without choledocholithiasis or biliary stricture. Reported no cholelithiasis. Unclear etiology of acute hepatitis, possible patient had passed a stone as she had 1 episode of abdominal pain. LFTs are trending down, will continue to follow making further recommendations. Current Visit: Yes Status: Acute Code(s): B17.9 - ACUTE VIRAL HEPATITIS, UNSPECIFIED SNOMED Code(s): 65909211 (2) Transaminitis Current Visit: Yes Status: Acute Code(s): R74.01 - ELEVATION OF LEVELS OF LIVER TRANSAMINASE LEVELS SNOMED Code(s): 630281727 (3) Altered mental status Current Visit: No Status: Acute Code(s): R41.82 - ALTERED MENTAL STATUS, UNSPECIFIED SNOMED Code(s): 872858163 (4) Atrial fibrillation Current Visit: No Status: Acute Code(s): I48.91 - UNSPECIFIED ATRIAL FIBRILLATION SNOMED Code(s): 95037845 (5) Bacteremia Current Visit: Yes Status: Acute Code(s): R78.81 - BACTEREMIA SNOMED Code(s): 4801607 Plan: 1. Continue symptomatic and supportive care 2. Avoid hepatotoxic medications 3. Daily CBC, CMP 4. MRCP ordered and reviewed 5. Continue with IV antibiotics 6. General Surgery on consultation 7. Further recommendations based on clinical course Thank you for this consultation, we will continue to follow. Dr. Christiano Mckee I agree with the dictator's note, documented as a scribe by Pebbles Muñiz.
--- NOTE | 2024-04-02 13:19 | P.PN ---
Subjective Progress Note Date: 04/02/24 SURGICAL PROGRESS NOTE CHIEF COMPLAINT: Altered mental status HISTORY OF PRESENT ILLNESS: Patient is sitting up in bed comfortably. No new complaints. MRCP results report liver is within normal limits no evidence for mass. No evidence for cirrhosis or steatosis. Extrahepatic biliary dilation which is within normal limits for patient's age. No evidence for choledocholithiasis or biliary stricture. No evidence for cholelithiasis. Indeterminate left superior renal lesion seen dating back to 2020 likely representing a proteinaceous/hemorrhagic cyst. Afebrile. Vitals stable. Total bilirubin is down from 5.4-3.1 LFTs are trending down. Blood culture positive for E. coli PHYSICAL EXAM: VITAL SIGNS: Reviewed. GENERAL: Well-developed in no acute distress. ABDOMEN: Soft. Nondistended. Nontender. NEUROLOGIC: awake and alert SKIN: no jaundice ASSESSMENT: 1. Hepatitis. LFTs and bilirubin trending down. MRCP shows no evidence of cholelithiasis or CBD stone. PLAN: -No surgical intervention planned -Further workup per GI service regarding hepatitis -Surgical service will sign off. Please call with any questions or concerns. Physician Philosophy Lecturer note has been reviewed by physician. Signing provider agrees with the documented findings, assessment, and plan of care. Objective - Vital Signs Vital signs: Vital Signs Temp 98.4 F 04/02/24 08:00 Pulse 67 04/02/24 11:19 Resp 16 04/02/24 11:19 BP 165/77 04/02/24 11:19 Pulse Ox 95 04/02/24 11:19 FiO2 Intake & Output 04/01/24 04/02/24 04/02/24 18:59 06:59 18:59 Intake Total 240 20 10 Output Total 1 Balance 240 19 10 Weight 47.627 kg 48.2 kg Intake: IV 20 10 Invasive Line 1 20 10 Oral 240 Output: Urine 1 Other: Voiding Method Toilet Toilet Toilet Diaper Diaper Diaper # Voids 1 # Bowel Movements 2 - Labs CBC & Chem 7: 04/01/24 07:08 04/02/24 07:26 Labs: Abnormal Lab Results - Last 24 Hours (Table) 04/02/24 Range/Units 07:26 Carbon Dioxide 33 H (22-30) mmol/L BUN 24 H (7-17) mg/dL Creatinine 1.08 H (0.52-1.04) mg/dL Total Bilirubin 3.1 H (0.2-1.3) mg/dL AST 345 H (14-36) U/L ALT 938 H (4-34) U/L Alkaline Phosphatase 240 H (38-126) U/L Albumin 3.4 L (3.5-5.0) g/dL Microbiology - Last 24 Hours (Table) 03/31/24 15:19 Blood Culture Gram Stain - Preliminary Blood Blood Culture - Preliminary Escherichia coli Molecular ID Assessment and Plan Assessment: 78 yo female w/ transaminitis -bilirubin trending down -lft's trending down -MRCP negative for choledocho -no surgical intervention at this time, defer to GI for hepatitis workup Time with Patient: Greater than 30
--- NOTE | 2024-04-02 16:39 | P.PN ---
Progress Note - Text Progress Note Date: 04/02/24 Chief Complaint: Altered sensorium very pleasant 78-year-old patient of Dr. Zbigniew Gary. Chronic stable medical conditions include GERD, hyperlipidemia, hypertension, osteoarthritis, paroxysmal atrial fibrillation, varicose veins, diverticulosis. very hard of hearing and does lipreading. watchman procedure done by Dr. Concepcion at [facility] on 05/2020.. SLUMS-examination suggestive of dementia.-Not severe. Patient has chronic left eye ptosis and left nasolabial weakening. September 01, 2023: Patient underwent cervical spine/thoracic spine surgery by Dr. Wilson. Takes [place] twice a day for the same. As per the ER notes patient presents with some altered mentation. No fever no chills. Appetite okay. Has some pain which is chronic in the neck. Patient found to have increased liver enzymes. Patient does take [place] twice a day. Also on statin. No fever chills diarrhea etc. reported. Some decrease in appetite. No abdominal pain. April 01: Admitted with acute severe hepatitis. Appears to be noninfectious. Patient's statin and [place] was discontinued. Denies abdominal pain. Some improvement in LFTs. Resting bed. Acute hepatitis panel negative. MRCP ordered by GI. Molecular ID identified E. coli in the blood. Given IV ceftriaxone. April 02: LFTs continues to come down. Patient did have some deep tenderness at the epigastric area. MRCP done today unremarkable. Discussed with patient daughter at the bedside. For her chronic back pain to use K-pad and ice pack. Diet has been advanced. DC IV fluids. Active Medications Albuterol Sulfate (Albuterol Nebulized 2.5 Mg/3 Ml) 2.5 mg INHALATION RT-QID PRN PRN Reason: Shortness Of Breath Budesonide/Formoterol Fumarate (Symbicort 160-4.5 Mcg Inhaler) 2 puff INHALATION RT-BID [facility] Last Admin: 04/02/24 08:59 Dose: 2 puff Diltiazem HCl (Diltiazem Oral 60 Mg Tab) 60 mg PO TID [facility] Folic Acid (Folic Acid 1 Mg Tab) 1 mg PO DAILY [facility] Last Admin: 04/02/24 08:07 Dose: 1 mg Ceftriaxone Sodium 2 gm/ (Sodium Chloride) 50 mls @ 100 mls/hr IVPB Q24HR [facility] Last Admin: 04/02/24 08:07 Dose: 100 mls/hr Latanoprost (Latanoprost 0.005% Ophth Drops 2.5 Ml Btl) 1 drops BOTH EYES HS [facility] Last Admin: 04/01/24 20:11 Dose: 1 drops Losartan Potassium (Losartan 50 Mg Tab) 75 mg PO HS [facility] Metoprolol Tartrate (Metoprolol Tartrate 50 Mg Tab) 100 mg PO BID [facility] Last Admin: 04/02/24 08:06 Dose: 100 mg Naloxone HCl (Naloxone 0.4 Mg/Ml 1 Ml Vial) 0.2 mg IV Q2M PRN PRN Reason: Opioid Reversal Pantoprazole Sodium (Pantoprazole 40 Mg Tablet) 40 mg PO DAILY [facility] Last Admin: 04/02/24 08:07 Dose: 40 mg Past medical history to include: Asthma, GERD, hyperlipidemia, hypertension, osteoarthritis, paroxysmal atrial fibrillation, varicose veins, stomach ulcer, diverticulitis. Esophagitis, gastritis, internal/external hemorrhoids, watchman procedure, esophagitis, internal hemorrhoids. Right carotid 50-69% stenosis. Cervical spine surgery Social history: Does not smoke or drink Cold. Lives alone. Physical examination: VITAL SIGNS: 98.4, 79, 16, 165 x 77, 95% room air GENERAL: Resting in bed, comfortable EYES: Pupils equal. Conjunctiva pale. HEENT: External appearance of nose and ears normal, oral cavity grossly normal. Very hard of hearing NECK: JVD not raised. Mass not palpable. HEART: Heart sounds irregular l, no edema. LUNGS: Respiratory rate normal, decreased breaths sounds. ABDOMEN: Soft, some epigastric tenderness, liver spleen not palpable, no masses palpable. PSYCH: Able to hold on to a regular conversation. Slight forgetfulness. MUSCULAR skeletal:: Evidence of OA especially in the hands. NEUROLOGICAL: Cranial nerves grossly intact; no facial asymmetry, power fair in all 4 limbs INVESTIGATIONS, reviewed in the clinical context: MR MRCP: Unremarkable April 02: Sodium 141 potassium 3.9 BUN 24 creatinine 1.08 total bilirubin 3.1 AST 345 ALT 938 April 01: White count 15.3 hemoglobin 15.3 platelets 180 Antonio sodium 138 creatinine 0.85 AST 1211 ALT 1623 Acute hepatitis panel: Negative March 31, 2024: White count 18.6 hemoglobin 14.2 platelets 205 sodium 141 potassium 3.6 BUN 21 creatinine 0.98 total bilirubin 5.2 AST 3338. ALT 2694. Alkaline phosphatase 322. Ammonia 11. Troponin I 0.0115 UA: Leukoesterase moderate, WBC 14. EKG tracing personally reviewed by me-normal sinus rhythm Chest x-ray film personally reviewed by me-some cardiomegaly CT brain: Nonspecific findings CT abdomen pelvis: Mild cardiomegaly. Nothing acute Gallbladder ultrasound: CBD dilated. Assessment and plan: -Altered mentation likely from hepatic encephalopathy.: Resolved Ammonia 11. -Acute severe hepatitis.: Significantly improved Patient denies any abdominal pain. No diarrhea. No fever no chills. Patient is hepatooffensive medication includes pravastatin and [place] twice daily.-Both will be held Acute hepatitis panel-negative MRCP unremarkable -Chronic neck pain from cervical spine surgery on September 01, 2023 Hold Tylenol. K-pad -Mild cognitive impairment. [Previous SLUMS examination, was given by the speech therapist. 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 Nonvisualization of the right vertebral artery Baby aspirin. With Dr. Mota/vascular -Internal hemorrhoids. - moderate persistent asthma, Symbicort -COPD in secondhand smoke exposure Bronchodilators -GERD, on PPI -Hyperlipidemia, Hold Pravachol -Essential hypertension, Cardizem 60 mg 3 times daily, Cozaar 50 mg nightly, Lopressor 50 mg 3 times daily -Primary osteoarthritis, K-pad as needed -Paroxysmal atrial fibrillation, currently sinus rhythm Cardizem 60 mg 3 times daily. Metoprolol 50 mg 3 times daily -Chronic Esophagitis and gastritis., On PPI -Very hard of hearing Hearing aids -Full code Discussed with patient daughter at the bedside. Increase activity as tolerated. DC IV fluids. Repeat labs. Past Medical History Past Medical History: Atrial Fibrillation, Asthma, COPD, GERD/Reflux, GI Bleed, Hyperlipidemia, Hypertension, Osteoarthritis (OA), Pneumonia, Vascular Disorder Additional Past Medical History / Comment(s): [place], Bronchitis, gastric ulcer, diverticular disease, lower GI bleed/AV malformation with ablation, benign colon polyp, borderline hyperlipidemia, arthritis mostly in back, slight bilateral glaucoma, varicosities. History of Any Multi-Drug Resistant Organisms: None Reported Past Surgical History: Adenoidectomy, Appendectomy, Heart Catheterization, Hysterectomy, Tonsillectomy, Tubal Ligation Additional Past Surgical History / Comment(s): Colonoscopy/benign polypectomy/AV malformation ablation, bilateral cataract removals, watchmen procedure Past Anesthesia/Blood Transfusion Reactions: No Reported Reaction Additional Past Anesthesia/Blood Transfusion Reaction / Comment(s): never recieved blood before. Past Psychological History: No Psychological Hx Reported Smoking Status: Never smoker Past Alcohol Use History: None Reported Past Drug Use History: None Reported
[2024-04-02] MEDS: DILTIAZEM ORAL 60 MG TAB PO SCH ×2 (17:20→19:53)
[2024-04-02] MEDS: LOSARTAN 50 MG TAB PO SCH (19:54)
[2024-04-03 08:01] LABS: ALT 668 U/L (4-34); AST 158 U/L (14-36); African American GFR (CKD) 68 (>60 ml/min/1.73 sqM); Albumin 3.4 g/dL (3.5-5.0); Alkaline Phosphatase 283 U/L (38-126); Anion Gap 4 mmol/L; Blood Urea Nitrogen 20 mg/dL (7-17); Calcium 9.7 mg/dL (8.4-10.2); Carbon Dioxide 31 mmol/L (22-30); Chloride 104 mmol/L (98-107); Glucose 107 mg/dL (74-99); Non-African American GFR(CKD) 59 (>60 ml/min/1.73 sqM); Potassium 3.2 mmol/L (3.5-5.1); Sodium 139 mmol/L (137-145); Total Bilirubin 1.8 mg/dL (0.2-1.3); Total Protein 6.3 g/dL (6.3-8.2)
[2024-04-03] MEDS ORDERED: Potassium Replacement Protocol 1 EACH MISC MISCELLANE PRN (08:05)
[2024-04-03] MEDS: POTASSIUM CHLORIDE ER 20 MEQ TAB.ER PO SCH (08:16)
--- NOTE | 2024-04-03 12:00 | P.PN ---
Subjective Progress Note Date: 04/03/24 Principal diagnosis: Transaminitis This is a pleasant 78-year-old female who presented to the hospital with altered mental status. She reported had an episode of epigastric pain that wrapped around both of her sides which she states lasted about 2 minutes. No further abdominal pain and no associated nausea or vomiting. States she just has not been feeling well over the last couple days. Past medical history includes atrial fibrillation, history of GI bleed with AVM, arthritis, chronic neck pain, dementia, asthma, COPD, GERD, hyperlipidemia and hypertension. Patient was noted to have an elevated liver enzymes. CT scan of the abdomen revealed no acute findings. Gallbladder ultrasound was unremarkable. Gastroenterology was consulted for transaminitis. Patient currently denies any abdominal pain, nausea or vomiting. She denies any history of liver disease. She denies any new medications. States that she has been eating well. Hepatitis panel was nonreactive. On admission total bilirubin 5.2 AST 3338 ALT 2694 alkaline phosphatase 322 ammonia 11 Today's labs WBC 15.3 hemoglobin 15.3 platelet count 182,000 sodium 138 potassium 3.4 BUN 20 creatinine 0.8 total bilirubin 5.4 AST 1211 ALT 1623 alkaline phosphatase 272 ammonia 11 acetaminophen less than 10 03/03/2024 Patient is seen and examined today as a follow-up. She was going down for her MRCP. She denied any abdominal pain, nausea or vomiting. LFTs are trending down. MRCP is resulted without any findings of choledocholithiasis, biliary dilation reported as normal for patient's age. She is afebrile. Today bilirubin 3.1 down from 5.4 AST 345 down from 1211 AST 938 down from 1623 and alkaline phosphatase at 240 down from 272 03/04/2024 Patient is seen and examined today as a follow-up. She is without any acute changes. She denies any abdominal pain, nausea or vomiting. Liver enzymes continue to trend down. Total bilirubin 1.8 AST 158 ALT 668 alkaline phosphatase 283. Objective - Vital Signs Vital signs: Vital Signs Temp 97.9 F 04/03/24 04:00 Pulse 75 04/03/24 04:00 Resp 17 04/03/24 04:00 BP 153/90 04/03/24 04:00 Pulse Ox 96 04/03/24 04:00 FiO2 Intake & Output 04/02/24 04/02/2424 06:59 18:59 06:59 Intake Total 20 738 20 Output Total 1 Balance 19 738 20 Weight 48.2 kg 48.8 kg Intake: IV 20 20 20 Invasive Line 1 20 20 20 Oral 718 Output: Urine 1 Other: Voiding Method Toilet Toilet Toilet Diaper Diaper Diaper # Voids 1 1 # Bowel Movements 2 - Exam General appearance: The patient is alert, oriented, appears in no acute distress. HET: Head is normocephalic and atraumatic. Conjunctiva pink. Sclera anicteric. Neck: Supple without lymphadenopathy. Abdomen: Soft, nontender, no hepatomegaly, nondistended. Extremities: Normal skin color and turgor. No pedal edema Skin: No rashes, no jaundice Neurological: No focal deficits. Alert and oriented. - Labs CBC & Chem 7: 04/01/24 07:08 04/03/24 06:24 Labs: Abnormal Lab Results - Last 24 Hours (Table) 04/02/24 Range/Units 07:26 Carbon Dioxide 33 H (22-30) mmol/L BUN 24 H (7-17) mg/dL Creatinine 1.08 H (0.52-1.04) mg/dL Total Bilirubin 3.1 H (0.2-1.3) mg/dL AST 345 H (14-36) U/L ALT 938 H (4-34) U/L Alkaline Phosphatase 240 H (38-126) U/L Albumin 3.4 L (3.5-5.0) g/dL Microbiology - Last 24 Hours (Table) 03/31/24 15:19 Blood Culture Gram Stain - Preliminary Blood Blood Culture - Preliminary Escherichia coli Molecular ID Assessment and Plan (1) Acute hepatitis Narrative/Plan: 78-year-old female presenting with altered mental status changes and weakness was noted to have significantly elevated liver enzyme studies. No previous history of liver disease, denies any history of alcoholism. Patient states she had epigastric abdominal pain that radiated around her side yesterday lasting only a few moments. No further abdominal pain. No new medications. Unclear etiology of transaminitis, possible hypoperfusion. Patient was also diagnosed with bacteremia with positive E. coli blood cultures. Abdominal ultrasound and CAT scan without any acute process however abdominal ultrasound does report a CBD of 1.2 cm which can be seen with CBD dilation/obstruction, and with bacteremia need to consider possible ascending cholangitis. Acute hepatitis panel nonreactive. MRCP no filling defect noted. Findings without choledocholithiasis or biliary stricture. Reported no cholelithiasis. Unclear etiology of acute hepatitis, possible patient had passed a stone as she had 1 episode of abdominal pain. This is likely the case that patient had passed a biliary stone. LFTs continue to trend down. No further workup indicated. Current Visit: Yes Status: Acute Code(s): B17.9 - ACUTE VIRAL HEPATITIS, UNSPECIFIED SNOMED Code(s): 90999063 (2) Transaminitis Current Visit: Yes Status: Acute Code(s): R74.01 - ELEVATION OF LEVELS OF LIVER TRANSAMINASE LEVELS SNOMED Code(s): 904745957 (3) Altered mental status Current Visit: No Status: Acute Code(s): R41.82 - ALTERED MENTAL STATUS, UNSPECIFIED SNOMED Code(s): 643996821 (4) Atrial fibrillation Current Visit: No Status: Acute Code(s): I48.91 - UNSPECIFIED ATRIAL FIBRILLATION SNOMED Code(s): 42528228 (5) Bacteremia Current Visit: Yes Status: Acute Code(s): R78.81 - BACTEREMIA SNOMED Code(s): 1464913 Plan: 1. Continue symptomatic and supportive care 2. Avoid hepatotoxic medications 3. MRCP ordered and reviewed 4. Continue to treat bacteremia 5. No further workup from gastroenterology Thank you for this consultation, we will sign off at this time. Dr. Christiano Mckee I agree with the dictator's note, documented as a scribe by Pebbles Muñiz.
--- NOTE | 2024-04-03 16:15 | P.PN ---
Progress Note - Text Progress Note Date: 04/03/24 Chief Complaint: Altered sensorium very pleasant 78-year-old patient of Dr. Zbigniew Gary. Chronic stable medical conditions include GERD, hyperlipidemia, hypertension, osteoarthritis, paroxysmal atrial fibrillation, varicose veins, diverticulosis. very hard of hearing and does lipreading. watchman procedure done by Dr. Concepcion at [facility] on 05/2020.. SLUMS-examination suggestive of dementia.-Not severe. Patient has chronic left eye ptosis and left nasolabial weakening. September 01, 2023: Patient underwent cervical spine/thoracic spine surgery by Dr. Wilson. Takes [place] twice a day for the same. As per the ER notes patient presents with some altered mentation. No fever no chills. Appetite okay. Has some pain which is chronic in the neck. Patient found to have increased liver enzymes. Patient does take [place] twice a day. Also on statin. No fever chills diarrhea etc. reported. Some decrease in appetite. No abdominal pain. April 01: Admitted with acute severe hepatitis. Appears to be noninfectious. Patient's statin and [place] was discontinued. Denies abdominal pain. Some improvement in LFTs. Resting bed. Acute hepatitis panel negative. MRCP ordered by GI. Molecular ID identified E. coli in the blood. Given IV ceftriaxone. April 02: LFTs continues to come down. Patient did have some deep tenderness at the epigastric area. MRCP done today unremarkable. Discussed with patient daughter at the bedside. For her chronic back pain to use K-pad and ice pack. Diet has been advanced. DC IV fluids. April 03: Patient was placed on low-fat diet yesterday evening. Does not like hospital food. Daughter brought in the food from home. LFTs continue to improve. Abdominal pain greatly improved. Discussed. Patient also getting IV ceftriaxone for E. coli in the blood. Repeat blood cultures today. Since blood pressure been running high over the last couple of days. Initially Cardizem was increased. Also Lopressor has been increased. Active Medications Albuterol Sulfate (Albuterol Nebulized 2.5 Mg/3 Ml) 2.5 mg INHALATION RT-QID PRN PRN Reason: Shortness Of Breath Budesonide/Formoterol Fumarate (Symbicort 160-4.5 Mcg Inhaler) 2 puff INHALATION RT-BID [facility] Last Admin: 04/03/24 08:43 Dose: 2 puff Diltiazem HCl (Diltiazem Oral 60 Mg Tab) 60 mg PO Q6H [facility] Last Admin: 04/03/24 15:21 Dose: 60 mg Folic Acid (Folic Acid 1 Mg Tab) 1 mg PO DAILY [facility] Last Admin: 04/03/24 08:15 Dose: 1 mg Ceftriaxone Sodium 2 gm/ (Sodium Chloride) 50 mls @ 100 mls/hr IVPB Q24HR [facility] Last Admin: 04/03/24 08:16 Dose: 100 mls/hr Latanoprost (Latanoprost 0.005% Ophth Drops 2.5 Ml Btl) 1 drops BOTH EYES HS [facility] Last Admin: 04/02/24 19:54 Dose: 1 drops Losartan Potassium (Losartan 50 Mg Tab) 75 mg PO HS [facility] Last Admin: 04/02/24 19:54 Dose: 75 mg Metoprolol Tartrate (Metoprolol Tartrate 50 Mg Tab) 100 mg PO BID [facility] Last Admin: 04/03/24 08:15 Dose: 100 mg Miscellaneous Information (Potassium Replacement Protocol 1 Each Misc) 1 each MISCELLANE DAILY PRN; Protocol PRN Reason: Per Protocol Naloxone HCl (Naloxone 0.4 Mg/Ml 1 Ml Vial) 0.2 mg IV Q2M PRN PRN Reason: Opioid Reversal Pantoprazole Sodium (Pantoprazole 40 Mg Tablet) 40 mg PO DAILY [facility] Last Admin: 04/03/24 08:15 Dose: 40 mg Past medical history to include: Asthma, GERD, hyperlipidemia, hypertension, osteoarthritis, paroxysmal atrial fibrillation, varicose veins, stomach ulcer, diverticulitis. Esophagitis, gastritis, internal/external hemorrhoids, watchman procedure, esophagitis, internal hemorrhoids. Right carotid 50-69% stenosis. Cervical spine surgery Social history: Does not smoke or drink Cold. Lives alone. Physical examination: VITAL SIGNS: 97.9, 75, 17, 153 x 90, 96% room air GENERAL: Resting in bed, comfortable EYES: Pupils equal. Conjunctiva pale. HEENT: External appearance of nose and ears normal, oral cavity grossly normal. Very hard of hearing NECK: JVD not raised. Mass not palpable. HEART: Heart sounds irregular l, no edema. LUNGS: Respiratory rate normal, decreased breaths sounds. ABDOMEN: Soft, no epigastric tenderness, liver spleen not palpable, no masses palpable. PSYCH: Able to hold on to a regular conversation. Slight forgetfulness. MUSCULAR skeletal:: Evidence of OA especially in the hands. INVESTIGATIONS, reviewed in the clinical context: April 03: Sodium 139 potassium 3.2 BUN 20 creatinine 0.93 total bilirubin 1.8 AST 158 ALT 668 MR MRCP: Unremarkable April 02: Sodium 141 potassium 3.9 BUN 24 creatinine 1.08 total bilirubin 3.1 AST 345 ALT 938 April 01: White count 15.3 hemoglobin 15.3 platelets 180 Antonio sodium 138 creatinine 0.85 AST 1211 ALT 1623 Acute hepatitis panel: Negative March 31, 2024: White count 18.6 hemoglobin 14.2 platelets 205 sodium 141 potassium 3.6 BUN 21 creatinine 0.98 total bilirubin 5.2 AST 3338. ALT 2694. Alkaline phosphatase 322. Ammonia 11. Troponin I 0.0115 UA: Leukoesterase moderate, WBC 14. EKG tracing personally reviewed by me-normal sinus rhythm Chest x-ray film personally reviewed by me-some cardiomegaly CT brain: Nonspecific findings CT abdomen pelvis: Mild cardiomegaly. Nothing acute Gallbladder ultrasound: CBD dilated. Assessment and plan: -Altered mentation likely from hepatic encephalopathy.: Resolved Ammonia 11. -Acute severe hepatitis.: Continues to improve . No fever no chills. Patient is hepatooffensive medication includes pravastatin and [place] twice daily.-Both will be held Acute hepatitis panel-negative MRCP unremarkable -Sepsis with positive blood cultures with E. coli.: Exact source unclear: Clinically better Repeat blood cultures today -Chronic neck pain from cervical spine surgery on September 01, 2023 Hold Tylenol. K-pad -Mild cognitive impairment. [Previous SLUMS examination, was given by the speech therapist. 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 Nonvisualization of the right vertebral artery Baby aspirin. With Dr. Mota/vascular -Internal hemorrhoids. - moderate persistent asthma, Symbicort -COPD in secondhand smoke exposure Bronchodilators -GERD, on PPI -Hyperlipidemia, Hold Pravachol -Essential hypertension, Cardizem 60 mg 4 times daily, Cozaar 50 mg nightly, Lopressor 50 mg 3 times daily -Primary osteoarthritis, K-pad as needed -Paroxysmal atrial fibrillation, currently sinus rhythm Crease Cardizem 60 mg 3 times daily. Increase metoprolol 100 mg twice daily -Chronic Esophagitis and gastritis., On PPI -Very hard of hearing Hearing aids -Full code Dose of Cardizem increased yesterday. Lopressor increased. Blood cultures repeated today. Repeat labs tomorrow. Past Medical History Past Medical History: Atrial Fibrillation, Asthma, COPD, GERD/Reflux, GI Bleed, Hyperlipidemia, Hypertension, Osteoarthritis (OA), Pneumonia, Vascular Disorder Additional Past Medical History / Comment(s): [place], Bronchitis, gastric ulcer, diverticular disease, lower GI bleed/AV malformation with ablation, benign colon polyp, borderline hyperlipidemia, arthritis mostly in back, slight bilateral glaucoma, varicosities. History of Any Multi-Drug Resistant Organisms: None Reported Past Surgical History: Adenoidectomy, Appendectomy, Heart Catheterization, Hysterectomy, Tonsillectomy, Tubal Ligation Additional Past Surgical History / Comment(s): Colonoscopy/benign polypectomy/AV malformation ablation, bilateral cataract removals, watchmen procedure Past Anesthesia/Blood Transfusion Reactions: No Reported Reaction Additional Past Anesthesia/Blood Transfusion Reaction / Comment(s): never recieved blood before. Past Psychological History: No Psychological Hx Reported Smoking Status: Never smoker Past Alcohol Use History: None Reported Past Drug Use History: None Reported
[2024-04-03 20:46] LABS: Glucose,Whole Blood 99 mg/dL (70-110)
[2024-04-04 06:57] LABS: HCT 41.6 % (34.0-46.0); HGB 13.5 gm/dL (11.4-16.0); MCH 32.9 pg (25.0-35.0); MCHC 32.5 g/dL (31.0-37.0); MCV 101.3 fL (80.0-100.0); Macrocytosis Slight; Platelet Count 181 k/uL (150-450); RBC 4.11 m/uL (3.80-5.40); RDW 13.9 % (11.5-15.5); WBC 9.2 k/uL (3.8-10.6)
[2024-04-04 07:09] LABS: ALT 505 U/L (4-34); AST 89 U/L (14-36); African American GFR (CKD) 79 (>60 ml/min/1.73 sqM); Albumin 3.5 g/dL (3.5-5.0); Alkaline Phosphatase 251 U/L (38-126); Anion Gap 5 mmol/L; Blood Urea Nitrogen 15 mg/dL (7-17); Calcium 9.7 mg/dL (8.4-10.2); Carbon Dioxide 33 mmol/L (22-30); Chloride 101 mmol/L (98-107); Glucose 106 mg/dL (74-99); Non-African American GFR(CKD) 68 (>60 ml/min/1.73 sqM); Potassium 3.5 mmol/L (3.5-5.1); Sodium 139 mmol/L (137-145); Total Bilirubin 1.5 mg/dL (0.2-1.3); Total Protein 6.2 g/dL (6.3-8.2)
[2024-04-04 07:44] LABS: Eosinophils # (M) 0.18 k/uL (0-0.7); Lymphocytes # (M) 1.66 k/uL (1.0-4.8); Monocytes # (M) 0.46 k/uL (0-1.0); Neutrophils % (M) 75 %; Nucleated Red Blood Cells 0 /100 WBC (0-0); Total Cells Counted 100
--- NOTE | 2024-04-04 14:30 | P.PN ---
Progress Note - Text Progress Note Date: 04/04/24 Chief Complaint: Altered sensorium very pleasant 78-year-old patient of Dr. Zbigniew Gary. Chronic stable medical conditions include GERD, hyperlipidemia, hypertension, osteoarthritis, paroxysmal atrial fibrillation, varicose veins, diverticulosis. very hard of hearing and does lipreading. watchman procedure done by Dr. Concepcion at [facility] on 05/2020.. SLUMS-examination suggestive of dementia.-Not severe. Patient has chronic left eye ptosis and left nasolabial weakening. September 01, 2023: Patient underwent cervical spine/thoracic spine surgery by Dr. Wilson. Takes [place] twice a day for the same. As per the ER notes patient presents with some altered mentation. No fever no chills. Appetite okay. Has some pain which is chronic in the neck. Patient found to have increased liver enzymes. Patient does take [place] twice a day. Also on statin. No fever chills diarrhea etc. reported. Some decrease in appetite. No abdominal pain. April 01: Admitted with acute severe hepatitis. Appears to be noninfectious. Patient's statin and [place] was discontinued. Denies abdominal pain. Some improvement in LFTs. Resting bed. Acute hepatitis panel negative. MRCP ordered by GI. Molecular ID identified E. coli in the blood. Given IV ceftriaxone. April 02: LFTs continues to come down. Patient did have some deep tenderness at the epigastric area. MRCP done today unremarkable. Discussed with patient daughter at the bedside. For her chronic back pain to use K-pad and ice pack. Diet has been advanced. DC IV fluids. April 03: Patient was placed on low-fat diet yesterday evening. Does not like hospital food. Daughter brought in the food from home. LFTs continue to improve. Abdominal pain greatly improved. Discussed. Patient also getting IV ceftriaxone for E. coli in the blood. Repeat blood cultures today. Since blood pressure been running high over the last couple of days. Initially Cardizem was increased. Also Lopressor has been increased. April 04: Tolerating diet. LFTs continue to improve. ALT still significantly up. Repeat blood culture pending. Discussed with patient. Follow Active Medications Albuterol Sulfate (Albuterol Nebulized 2.5 Mg/3 Ml) 2.5 mg INHALATION RT-QID PRN PRN Reason: Shortness Of Breath Budesonide/Formoterol Fumarate (Symbicort 160-4.5 Mcg Inhaler) 2 puff INHALATION RT-BID [facility] Last Admin: 04/04/24 08:44 Dose: 2 puff Diltiazem HCl (Diltiazem Oral 60 Mg Tab) 60 mg PO Q6H [facility] Last Admin: 04/04/24 08:04 Dose: 60 mg Folic Acid (Folic Acid 1 Mg Tab) 1 mg PO DAILY [facility] Last Admin: 04/04/24 08:04 Dose: 1 mg Ceftriaxone Sodium 2 gm/ (Sodium Chloride) 50 mls @ 100 mls/hr IVPB Q24HR [facility] Last Admin: 04/04/24 08:04 Dose: 100 mls/hr Latanoprost (Latanoprost 0.005% Ophth Drops 2.5 Ml Btl) 1 drops BOTH EYES HS [facility] Last Admin: 04/03/24 21:02 Dose: 1 drops Losartan Potassium (Losartan 50 Mg Tab) 75 mg PO HS [facility] Last Admin: 04/03/24 21:03 Dose: 75 mg Metoprolol Tartrate (Metoprolol Tartrate 50 Mg Tab) 100 mg PO BID [facility] Last Admin: 04/04/24 08:04 Dose: 100 mg Miscellaneous Information (Potassium Replacement Protocol 1 Each Misc) 1 each MISCELLANE DAILY PRN; Protocol PRN Reason: Per Protocol Naloxone HCl (Naloxone 0.4 Mg/Ml 1 Ml Vial) 0.2 mg IV Q2M PRN PRN Reason: Opioid Reversal Pantoprazole Sodium (Pantoprazole 40 Mg Tablet) 40 mg PO DAILY [facility] Last Admin: 04/04/24 08:04 Dose: 40 mg Past medical history to include: Asthma, GERD, hyperlipidemia, hypertension, osteoarthritis, paroxysmal atrial fibrillation, varicose veins, stomach ulcer, diverticulitis. Esophagitis, gastritis, internal/external hemorrhoids, watchman procedure, esophagitis, internal hemorrhoids. Right carotid 50-69% stenosis. Cervical spine surgery Social history: Does not smoke or drink Cold. Lives alone. Physical examination: VITAL SIGNS: 98.2, 72, 16, 164 x 89, 94% room air GENERAL: Sitting up in bed, eating lunch EYES: Pupils equal. Conjunctiva pale. HEENT: External appearance of nose and ears normal, oral cavity grossly normal. Very hard of hearing NECK: JVD not raised. Mass not palpable. HEART: Heart sounds irregular l, no edema. LUNGS: Respiratory rate normal, decreased breaths sounds. ABDOMEN: Soft, no epigastric tenderness, liver spleen not palpable, no masses palpable. PSYCH: Able to hold on to a regular conversation. Slight forgetfulness. MUSCULAR skeletal:: Evidence of OA especially in the hands. INVESTIGATIONS, reviewed in the clinical context: April 04: White count 9.2 hemoglobin 13.5 potassium 3.5 glucose 106 bilirubin 1.5 AST 89 ALT 505 April 03: Sodium 139 potassium 3.2 BUN 20 creatinine 0.93 total bilirubin 1.8 AST 158 ALT 668 MR MRCP: Unremarkable April 02: Sodium 141 potassium 3.9 BUN 24 creatinine 1.08 total bilirubin 3.1 AST 345 ALT 938 April 01: White count 15.3 hemoglobin 15.3 platelets 180 Antonio sodium 138 creatinine 0.85 AST 1211 ALT 1623 Acute hepatitis panel: Negative March 31, 2024: White count 18.6 hemoglobin 14.2 platelets 205 sodium 141 potassium 3.6 BUN 21 creatinine 0.98 total bilirubin 5.2 AST 3338. ALT 2694. Alkaline phosphatase 322. Ammonia 11. Troponin I 0.0115 UA: Leukoesterase moderate, WBC 14. EKG tracing personally reviewed by me-normal sinus rhythm Chest x-ray film personally reviewed by me-some cardiomegaly CT brain: Nonspecific findings CT abdomen pelvis: Mild cardiomegaly. Nothing acute Gallbladder ultrasound: CBD dilated. Assessment and plan: -Altered mentation likely from hepatic encephalopathy.: Resolved Ammonia 11. -Acute severe hepatitis.: Continues to improve . No fever no chills. Patient is hepatooffensive medication includes pravastatin and [place] twice daily.-Both will be held Acute hepatitis panel-negative MRCP unremarkable -Sepsis with positive blood cultures with E. coli.: Exact source unclear: Clinically better Repeat blood cultures pending -Chronic neck pain from cervical spine surgery on September 01, 2023 Hold Tylenol. K-pad -Mild cognitive impairment. [Previous SLUMS examination, was given by the speech therapist. 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 Nonvisualization of the right vertebral artery Baby aspirin. With Dr. Mota/vascular -Internal hemorrhoids. - moderate persistent asthma, Symbicort -COPD in secondhand smoke exposure Bronchodilators -GERD, on PPI -Hyperlipidemia, Hold Pravachol -Essential hypertension, Cardizem 60 mg 4 times daily, Cozaar 50 mg nightly, Lopressor 50 mg 3 times daily -Primary osteoarthritis, K-pad as needed -Paroxysmal atrial fibrillation, currently sinus rhythm Crease Cardizem 60 mg 3 times daily. Increase metoprolol 100 mg twice daily -Chronic Esophagitis and gastritis., On PPI -Very hard of hearing Hearing aids -Full code Continue current medication treatment plan. Repeat labs tomorrow. Repeat cultures pending. Clinically much better Past Medical History Past Medical History: Atrial Fibrillation, Asthma, COPD, GERD/Reflux, GI Bleed, Hyperlipidemia, Hypertension, Osteoarthritis (OA), Pneumonia, Vascular Disorder Additional Past Medical History / Comment(s): [place], Bronchitis, gastric ulcer, diverticular disease, lower GI bleed/AV malformation with ablation, benign colon polyp, borderline hyperlipidemia, arthritis mostly in back, slight bilateral glaucoma, varicosities. History of Any Multi-Drug Resistant Organisms: None Reported Past Surgical History: Adenoidectomy, Appendectomy, Heart Catheterization, Hysterectomy, Tonsillectomy, Tubal Ligation Additional Past Surgical History / Comment(s): Colonoscopy/benign polypectomy/AV malformation ablation, bilateral cataract removals, watchmen procedure Past Anesthesia/Blood Transfusion Reactions: No Reported Reaction Additional Past Anesthesia/Blood Transfusion Reaction / Comment(s): never recieved blood before. Past Psychological History: No Psychological Hx Reported Smoking Status: Never smoker Past Alcohol Use History: None Reported Past Drug Use History: None Reported
[2024-04-05 07:11] LABS: ALT 387 U/L (4-34); AST 62 U/L (14-36); African American GFR (CKD) 69 (>60 ml/min/1.73 sqM); Albumin 3.5 g/dL (3.5-5.0); Alkaline Phosphatase 249 U/L (38-126); Anion Gap 5 mmol/L; Blood Urea Nitrogen 18 mg/dL (7-17); Calcium 9.5 mg/dL (8.4-10.2); Carbon Dioxide 35 mmol/L (22-30); Chloride 100 mmol/L (98-107); Glucose 99 mg/dL (74-99); Non-African American GFR(CKD) 60 (>60 ml/min/1.73 sqM); Potassium 3.4 mmol/L (3.5-5.1); Sodium 140 mmol/L (137-145); Total Bilirubin 1.2 mg/dL (0.2-1.3); Total Protein 6.4 g/dL (6.3-8.2)
[2024-04-05 09:18] VITALS: RESP 16; TEMP 98.5
[2024-04-05 11:35] VITALS: BP 154/79; PULSE 75
--- NOTE | 2024-04-06 14:53 | P.DS ---
Providers Date of admission: 03/31/24 15:28 Expected date of discharge: 04/05/24 Attending physician: Joavni Pelaez Consults: 03/31/24 15:27 Consult Physician Urgent Consulting Provider: Che Mckee Consult Reason/Comments: transamnitis Do you want consulting provider notified?: Yes Primary care physician: [facility] Course: Chief Complaint: Altered sensorium very pleasant 78-year-old patient of Dr. Zbigniew Gary. Chronic stable medical conditions include GERD, hyperlipidemia, hypertension, osteoarthritis, paroxysmal atrial fibrillation, varicose veins, diverticulosis. very hard of hearing and does lipreading. watchman procedure done by Dr. Concepcion at [facility] on 05/2020.. SLUMS-examination suggestive of dementia.-Not severe. Patient has chronic left eye ptosis and left nasolabial weakening. September 01, 2023: Patient underwent cervical spine/thoracic spine surgery by Dr. Wilson. Takes [place] twice a day for the same. As per the ER notes patient presents with some altered mentation. No fever no chills. Appetite okay. Has some pain which is chronic in the neck. Patient found to have increased liver enzymes. Patient does take [place] twice a day. Also on statin. No fever chills diarrhea etc. reported. Some decrease in appetite. No abdominal pain. April 01: Admitted with acute severe hepatitis. Appears to be noninfectious. Patient's statin and [place] was discontinued. Denies abdominal pain. Some improvement in LFTs. Resting bed. Acute hepatitis panel negative. MRCP ordered by GI. Molecular ID identified E. coli in the blood. Given IV ceftriaxone. April 02: LFTs continues to come down. Patient did have some deep tenderness at the epigastric area. MRCP done today unremarkable. Discussed with patient daughter at the bedside. For her chronic back pain to use K-pad and ice pack. Diet has been advanced. DC IV fluids. April 03: Patient was placed on low-fat diet yesterday evening. Does not like hospital food. Daughter brought in the food from home. LFTs continue to improve. Abdominal pain greatly improved. Discussed. Patient also getting IV ceftriaxone for E. coli in the blood. Repeat blood cultures today. Since blood pressure been running high over the last couple of days. Initially Cardizem was increased. Also Lopressor has been increased. April 04: Tolerating diet. LFTs continue to improve. ALT still significantly up. Repeat blood culture pending. Discussed with patient. Follow April 05: Patient doing well. Repeat blood culture negative till now. Clinically doing well. No fever. Eating well. Will resume patient's home dose of [place]. Which has a limited amount of acetaminophen in view of LFTs. Hold off Lipitor until follow-up outpatient repeat liver function outpatient. This should be done in about 2 weeks time.-With PCP. Patient will complete 7 more days of Ceftin. Blood pressure medications adjusted. Discussion and discharge planning more than 35 minutes Past medical history to include: Asthma, GERD, hyperlipidemia, hypertension, osteoarthritis, paroxysmal atrial fibrillation, varicose veins, stomach ulcer, diverticulitis. Esophagitis, gastritis, internal/external hemorrhoids, watchman procedure, esophagitis, internal hemorrhoids. Right carotid 50-69% stenosis. Cervical spine surgery Social history: Does not smoke or drink Cold. Lives alone. Physical examination: VITAL SIGNS: 98.5, 75, 16, 154 x 79, 94% room air GENERAL: Comfortable EYES: Pupils equal. Conjunctiva pale. HEENT: External appearance of nose and ears normal, oral cavity grossly normal. Very hard of hearing NECK: JVD not raised. Mass not palpable. HEART: Heart sounds irregular l, no edema. LUNGS: Respiratory rate normal, decreased breaths sounds. ABDOMEN: Soft, no epigastric tenderness, liver spleen not palpable, no masses palpable. PSYCH: Able to hold on to a regular conversation. Slight forgetfulness. MUSCULAR skeletal:: Evidence of OA especially in the hands. INVESTIGATIONS, reviewed in the clinical context: April 05: Sodium 140 potassium 3.4 creatinine 0.91 AST 62 ALT 387 bilirubin 1.2 MR MRCP: Unremarkable April 01: White count 15.3 hemoglobin 15.3 platelets 180 Antonio sodium 138 creatinine 0.85 AST 1211 ALT 1623 Acute hepatitis panel: Negative March 31, 2024: White count 18.6 hemoglobin 14.2 platelets 205 sodium 141 potassium 3.6 BUN 21 creatinine 0.98 total bilirubin 5.2 AST 3338. ALT 2694. Alkaline phosphatase 322. Ammonia 11. Troponin I 0.0115 UA: Leukoesterase moderate, WBC 14. EKG tracing personally reviewed by me-normal sinus rhythm Chest x-ray film personally reviewed by me-some cardiomegaly CT brain: Nonspecific findings CT abdomen pelvis: Mild cardiomegaly. Nothing acute Gallbladder ultrasound: CBD dilated. Assessment and plan: -Altered mentation likely from hepatic encephalopathy.: Resolved Ammonia 11. -Acute severe hepatitis.: Much improved . No fever no chills. Patient is hepatooffensive medication includes pravastatin and [place] twice daily.-Was held Acute hepatitis panel-negative MRCP unremarkable Upon discharge, [place] is being resumed. Pravastatin to be held until follow-up outpatient LFTs. -Sepsis with positive blood cultures with E. coli.: Exact source unclear: Improved Repeat blood cultures April 03 remain negative -Chronic neck pain from cervical spine surgery on September 01, 2023 Resume home dose of [place] l. K-pad -Mild cognitive impairment. [Previous SLUMS examination, was given by the speech therapist. 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 Nonvisualization of the right vertebral artery Baby aspirin. With Dr. Mota/vascular -Internal hemorrhoids. - moderate persistent asthma, Symbicort -COPD in secondhand smoke exposure Bronchodilators -GERD, on PPI -Hyperlipidemia, Hold Pravachol until outpatient LFTs -Essential hypertension, Cardizem CD to 40 mg a day. Lopressor 100 mg twice daily. Cozaar 50 mg twice daily. -Primary osteoarthritis, K-pad as needed -Paroxysmal atrial fibrillation, currently sinus rhythm Cardizem and metoprolol -Chronic Esophagitis and gastritis., On PPI -Very hard of hearing Hearing aids -Full code Disposition: Home Labs: CMP in [address] Gary Past Medical History Past Medical History: Atrial Fibrillation, Asthma, COPD, GERD/Reflux, GI Bleed, Hyperlipidemia, Hypertension, Osteoarthritis (OA), Pneumonia, Vascular Disorder Additional Past Medical History / Comment(s): [place], Bronchitis, gastric ulcer, diverticular disease, lower GI bleed/AV malformation with ablation, benign colon polyp, borderline hyperlipidemia, arthritis mostly in back, slight bilateral glaucoma, varicosities. History of Any Multi-Drug Resistant Organisms: None Reported Past Surgical History: Adenoidectomy, Appendectomy, Heart Catheterization, Hysterectomy, Tonsillectomy, Tubal Ligation Additional Past Surgical History / Comment(s): Colonoscopy/benign polypectomy/AV malformation ablation, bilateral cataract removals, watchmen procedure Past Anesthesia/Blood Transfusion Reactions: No Reported Reaction Additional Past Anesthesia/Blood Transfusion Reaction / Comment(s): never recieved blood before. Past Psychological History: No Psychological Hx Reported Smoking Status: Never smoker Past Alcohol Use History: None Reported Past Drug Use History: None Reported Plan - Discharge Summary Discharge Rx Participant: No New Discharge Prescriptions: New Diltiazem Cd [Cardizem CD] 240 mg PO DAILY #30 cap cefuroxime axetiL [Ceftin] 500 mg PO BID #14 tab Metoprolol Tartrate [Lopressor] 100 mg PO BID #60 tablet Losartan [Cozaar] 50 mg PO BID #60 tab Continue Latanoprost [Xalatan 0.005%] 1 drop BOTH EYES HS Budesonide/Formoterol Fumarate [Symbicort 160-4.5 Mcg Inhaler] 2 puff INHALATION RT-BID Omeprazole 20 mg PO DAILY Cholecalciferol [Vitamin D3 (125 Mcg = 5000 Iu)] 125 mcg PO DAILY HYDROcodone/APAP 7.5-325MG [[place] 7.5-325] 1 tab PO Q6HR PRN #24 tab PRN Reason: Pain Folic Acid 0.8 mg PO DAILY Pyridoxine [Vitamin B-6] 100 mg PO DAILY Ascorbic Acid [Vitamin C] 1,000 mg PO DAILY Albuterol Sulfate [Albuterol Sulfate Hfa] 2 puff PO RT-QID PRN PRN Reason: Shortness Of Breath Discontinued Pravastatin Sodium [Pravachol] 40 mg PO DAILY Diltiazem Oral [Cardizem*] 60 mg PO BID Metoprolol Tartrate [Lopressor] 50 mg PO BID hydroCHLOROthiazide 12.5 mg PO DAILY Potassium Chloride [Klor-Con M10] 20 meq PO DAILY Losartan [Cozaar] 50 mg PO HS #1 tab Discharge Medication List Latanoprost [Xalatan 0.005%] 1 drop BOTH EYES HS 10/15/16 [History] Budesonide/Formoterol Fumarate [Symbicort 160-4.5 Mcg Inhaler] 2 puff INHALATION RT-BID 08/11/17 [History] Omeprazole 20 mg PO DAILY 06/25/20 [History] Ascorbic Acid [Vitamin C] 1,000 mg PO DAILY 08/30/23 [History] Cholecalciferol [Vitamin D3 (125 Mcg = 5000 Iu)] 125 mcg PO DAILY 08/30/23 [History] Folic Acid 0.8 mg PO DAILY 08/30/23 [History] Pyridoxine [Vitamin B-6] 100 mg PO DAILY 08/30/23 [History] HYDROcodone/APAP 7.5-325MG [[place] 7.5-325] 1 tab PO Q6HR PRN #24 tab 09/06/23 [Rx] Albuterol Sulfate [Albuterol Sulfate Hfa] 2 puff PO RT-QID PRN 03/31/24 [History] Diltiazem Cd [Cardizem CD] 240 mg PO DAILY #30 cap 04/05/24 [Rx] Losartan [Cozaar] 50 mg PO BID #60 tab 04/05/24 [Rx] Metoprolol Tartrate [Lopressor] 100 mg PO BID #60 tablet 04/05/24 [Rx] cefuroxime axetiL [Ceftin] 500 mg PO BID #14 tab 04/05/24 [Rx] Follow up Appointment(s)/Referral(s): Zbigniew Gary DO [Primary Care Provider] - 1-2 days Patient Instructions/Handouts: Encephalopathy (DC) Discharge Disposition: HOME SELF-CARE
== END 2024-04-05 15:08 | disposition home or self-care (01) | DRG 872 ==
LOC: EC 11:06 → 3SCARD 15:28
PROVIDERS: ADMIT Hospitalist; ATTEND Hospitalist
DX: A41.9 Sepsis, unspecified organism (principal); B17.9 Acute viral hepatitis, unspecified; K76.82 Hepatic encephalopathy; G89.29 Other chronic pain; M54.2 Cervicalgia; K64.8 Other hemorrhoids; J45.40 Moderate persistent asthma, uncomplicated; J44.9 Chronic obstructive pulmonary disease, unspecified; I10 Essential (primary) hypertension; E78.5 Hyperlipidemia, unspecified; K21.00 Gastro-esophageal reflux disease with esophagitis, without bleeding; M19.91 Primary osteoarthritis, unspecified site; I48.0 Paroxysmal atrial fibrillation; F03.A0 Unspecified dementia, mild, without behavioral disturbance, psychotic disturbance, mood disturbance, and anxiety; I65.22 Occlusion and stenosis of left carotid artery; K29.70 Gastritis, unspecified, without bleeding; H91.90 Unspecified hearing loss, unspecified ear; Z79.899 Other long term (current) drug therapy; Z86.711 Personal history of pulmonary embolism; Z95.818 Presence of other cardiac implants and grafts; Z90.710 Acquired absence of both cervix and uterus
CPT/HCPCS: 36415; 70450; 71046; 74177; 74181; 76705; 80053; 80074; 80143; 81001; 82140; 84484; 85025; 85610; 85730; 87040; 87077; 87186; 93005; 94640; 94760; 96361; 96365; 96366; 96367; 96368; 99285

== ENCOUNTER → 2024-04-09 | Outpatient (CLI) | payer MEDICARE, OTHER ==
[2024-04-09 19:23] LABS: ALT 144 U/L (8-44); AST 33 U/L (13-35); Albumin 3.9 g/dL (3.8-4.9); Alkaline Phosphatase 206 U/L (41-126); Blood Urea Nitrogen 22.8 mg/dL (9.0-27.0); Calcium 10.3 mg/dL (8.7-10.3); Carbon Dioxide 29.8 mmol/L (21.6-31.8); Chloride 103 mmol/L (96-109); Glucose 110 mg/dL (70-110); Potassium 3.4 mmol/L (3.5-5.5); Sodium 145 mmol/L (135-145); Total Protein 6.9 g/dL (6.2-8.2)
[2024-04-09 20:34] LABS: Basophils # (A) 0.04 X 10*3/uL (0.00-0.10); Basophils % (A) 0.4 %; Eosinophils # (A) 0.16 X 10*3/uL (0.04-0.35); Eosinophils % (A) 1.4 %; HCT 42.3 % (37.2-46.3); HGB 13.6 g/dL (12.0-15.0); Lymphocytes # (A) 2.35 X 10*3/uL (0.90-5.00); Lymphocytes % (A) 21.1 %; MCH 31.9 pg (27.0-32.0); MCHC 32.2 g/dL (32.0-37.0); MCV 99.1 FL (80.0-97.0); Mean Platelet Volume 10.8 FL (9.5-12.2); Monocytes # (A) 1.06 X 10*3/uL (0.20-1.00); Monocytes % (A) 9.5 %; NRBC Per 100 WBC 0 X 10*3/uL (0.00-0.01); Neutrophils # (A) 7.46 X 10*3/uL (1.80-7.70); Neutrophils % (A) 67.2 %; Platelet Count 369 X 10*3/uL (140-440); RBC 4.27 X 10*6/uL (4.10-5.20); RDW 14.9 % (11.5-14.5); WBC 11.12 X 10*3/uL (4.50-10.00)
== END | disposition home or self-care (01) ==
LOC: LABWHC1 13:42
PROVIDERS: ATTEND Family Medicine
DX: B17.9 Acute viral hepatitis, unspecified (principal); N39.0 Urinary tract infection, site not specified
CPT/HCPCS: 36415; 80053; 85025

== ENCOUNTER → 2024-05-05 | Outpatient (CLI) | payer MEDICARE, OTHER ==
[2024-05-05 20:19] LABS: BUN/Creat Ratio 18.91 Ratio (12.00-20.00); Blood Urea Nitrogen 20.8 mg/dL (9.0-27.0); Carbon Dioxide 35.6 mmol/L (21.6-31.8); Chloride 98 mmol/L (96-109); Glucose 135 mg/dL (70-110); Potassium 3.2 mmol/L (3.5-5.5); Sodium 144 mmol/L (135-145)
[2024-05-05 20:20] LABS: ALT 21 U/L (8-44); AST 24 U/L (13-35); Albumin 3.8 g/dL (3.8-4.9); Albumin/Globulin Ratio 1.27 Ratio (1.60-3.17); Alkaline Phosphatase 142 U/L (41-126); Total Bilirubin 0.7 mg/dL (0.3-1.2); Total Protein 6.8 g/dL (6.2-8.2)
[2024-05-05 20:38] LABS: Basophils # (A) 0.06 X 10*3/uL (0.00-0.10); Basophils % (A) 0.6 %; Eosinophils # (A) 0.14 X 10*3/uL (0.04-0.35); Eosinophils % (A) 1.3 %; HCT 44.6 % (37.2-46.3); Lymphocytes # (A) 1.98 X 10*3/uL (0.90-5.00); Lymphocytes % (A) 18.4 %; MCH 31.5 pg (27.0-32.0); MCHC 31.4 g/dL (32.0-37.0); MCV 100.5 FL (80.0-97.0); Mean Platelet Volume 11.2 FL (9.5-12.2); Monocytes # (A) 1.21 X 10*3/uL (0.20-1.00); Monocytes % (A) 11.2 %; NRBC Per 100 WBC 0 X 10*3/uL (0.00-0.01); Neutrophils # (A) 7.36 X 10*3/uL (1.80-7.70); Neutrophils % (A) 68.2 %; Platelet Count 299 X 10*3/uL (140-440); RBC 4.44 X 10*6/uL (4.10-5.20); RDW 14.6 % (11.5-14.5); WBC 10.78 X 10*3/uL (4.50-10.00)
== END | disposition home or self-care (01) ==
LOC: LABWHC1 13:13
PROVIDERS: ATTEND Family Medicine
DX: B17.9 Acute viral hepatitis, unspecified (principal)
CPT/HCPCS: 36415; 80053; 85025

== ENCOUNTER → 2024-05-12 | Outpatient (CLI) | payer MEDICARE, OTHER ==
[2024-05-12 18:26] LABS: Basophils # (A) 0.04 X 10*3/uL (0.00-0.10); Basophils % (A) 0.4 %; Eosinophils # (A) 0.24 X 10*3/uL (0.04-0.35); Eosinophils % (A) 2.4 %; HGB 13.9 g/dL (12.0-15.0); Lymphocytes # (A) 2.53 X 10*3/uL (0.90-5.00); Lymphocytes % (A) 25.3 %; MCH 31.8 pg (27.0-32.0); MCHC 32.3 g/dL (32.0-37.0); MCV 98.4 FL (80.0-97.0); Mean Platelet Volume 10.5 FL (9.5-12.2); Monocytes # (A) 1.08 X 10*3/uL (0.20-1.00); Monocytes % (A) 10.8 %; NRBC Per 100 WBC 0 X 10*3/uL (0.00-0.01); Neutrophils # (A) 6.09 X 10*3/uL (1.80-7.70); Neutrophils % (A) 60.8 %; Platelet Count 319 X 10*3/uL (140-440); RBC 4.37 X 10*6/uL (4.10-5.20); RDW 14.6 % (11.5-14.5); WBC 10.01 X 10*3/uL (4.50-10.00)
[2024-05-12 19:15] LABS: Alkaline Phosphatase 146 U/L (41-126); BUN/Creat Ratio 22.22 Ratio (12.00-20.00); Calcium 10.3 mg/dL (8.7-10.3); Chloride 102 mmol/L (96-109); Glucose 116 mg/dL (70-110); Potassium 3.3 mmol/L (3.5-5.5); Sodium 143 mmol/L (135-145)
== END | disposition home or self-care (01) ==
LOC: LABWHC1 13:50
PROVIDERS: ATTEND Family Medicine
DX: R94.4 Abnormal results of kidney function studies (principal); R74.8 Abnormal levels of other serum enzymes; R79.89 Other specified abnormal findings of blood chemistry
CPT/HCPCS: 36415; 80048; 84075; 85025

== ENCOUNTER → 2024-08-13 | Outpatient (CLI) | payer MEDICARE ==
[2024-08-13 15:04] LABS: Basophils # (A) 0.05 X 10*3/uL (0.00-0.10); Basophils % (A) 0.4 %; Eosinophils # (A) 0.23 X 10*3/uL (0.04-0.35); Eosinophils % (A) 1.9 %; HCT 46.1 % (37.2-46.3); HGB 14.7 g/dL (12.0-15.0); Lymphocytes # (A) 2.61 X 10*3/uL (0.90-5.00); Lymphocytes % (A) 22.1 %; MCH 32.8 pg (27.0-32.0); MCHC 31.9 g/dL (32.0-37.0); MCV 102.9 FL (80.0-97.0); Mean Platelet Volume 10.7 FL (9.5-12.2); Monocytes # (A) 0.84 X 10*3/uL (0.20-1.00); Monocytes % (A) 7.1 %; NRBC Per 100 WBC 0 X 10*3/uL (0.00-0.01); Neutrophils # (A) 8.05 X 10*3/uL (1.80-7.70); Neutrophils % (A) 68.2 %; Platelet Count 278 X 10*3/uL (140-440); RBC 4.48 X 10*6/uL (4.10-5.20); RDW 13.9 % (11.5-14.5); WBC 11.82 X 10*3/uL (4.50-10.00)
[2024-08-13 16:01] LABS: ALT 22 U/L (8-44); AST 29 U/L (13-35); Albumin 4.2 g/dL (3.8-4.9); Alkaline Phosphatase 143 U/L (41-126); BUN/Creat Ratio 20.36 Ratio (12.00-20.00); Blood Urea Nitrogen 22.4 mg/dL (9.0-27.0); Calcium 10.6 mg/dL (8.7-10.3); Carbon Dioxide 28.3 mmol/L (21.6-31.8); Chloride 99 mmol/L (96-109); Chol/HDL Ratio 3.02 Ratio; Glucose 121 mg/dL (70-110); LDL Cholesterol,Calculated 99.6 mg/dL (0.0-131.0); Potassium 4.1 mmol/L (3.5-5.5); Sodium 142 mmol/L (135-145); Total Bilirubin 0.9 mg/dL (0.3-1.2); Total Protein 7.2 g/dL (6.2-8.2)
== END | disposition home or self-care (01) ==
LOC: LABWHC1 09:23
PROVIDERS: ATTEND Family Medicine
DX: I10 Essential (primary) hypertension (principal); E78.5 Hyperlipidemia, unspecified; D64.9 Anemia, unspecified
CPT/HCPCS: 36415; 80053; 80061; 82306; 83036; 85025

== ENCOUNTER 2024-08-25 12:40 | Emergency (ER) | payer MEDICARE ==
--- NOTE | 2024-08-25 12:58 | ED ---
General Adult HPI - General Chief complaint: Back Pain/Injury Stated complaint: SOB Time Seen by Provider: 08/25/24 12:48 Source: patient Mode of arrival: ambulatory Limitations: no limitations - History of Present Illness Initial comments: Dictation was produced using [employer] dictation software. please excuse any grammatical, word or spelling errors. Chief Complaint: 79-year-old female presents with pleuritic back pain and shortness of breath History of Present Illness: Patient is 79-year-old female presents emergency department with 1 to 2 days of pleuritic back pain that radiates to the chest along with shortness of breath. History present illness obtained from daughter at the bedside. Patient suffers from extreme hearing difficulties. No fever chills or night sweats. No cough. Patient allegedly has pain that is worse whenever she takes a deep breath she has a history of IVC filter and watchman. The ROS documented in this emergency department record has been reviewed and confirmed by me. Those systems with pertinent positive or negative responses have been documented in the HPI. All other systems are other negative and/or no ncontributory. - Related Data Home Medications Medication Instructions Recorded Confirmed Latanoprost [Xalatan 0.005%] 1 drop BOTH EYES HS 10/15/16 03/31/24 Budesonide/Formoterol Fumarate 2 puff INHALATION RT-BID 08/11/17 03/31/24 [Symbicort 160-4.5 Mcg Inhaler] Omeprazole 20 mg PO DAILY 06/25/20 03/31/24 Ascorbic Acid [Vitamin C] 1,000 mg PO DAILY 08/30/23 03/31/24 Cholecalciferol [Vitamin D3 (125 125 mcg PO DAILY 08/30/23 03/31/24 Mcg = 5000 Iu)] Folic Acid 0.8 mg PO DAILY 08/30/23 03/31/24 Pyridoxine [Vitamin B-6] 100 mg PO DAILY 08/30/23 03/31/24 Albuterol Sulfate [Albuterol 2 puff PO RT-QID PRN 03/31/24 03/31/24 Sulfate Hfa] Previous Rx's Medication Instructions Recorded HYDROcodone/APAP 7.5-325MG [[place] 1 tab PO Q6HR PRN #24 tab 09/06/23 7.5-325] Diltiazem Cd [Cardizem CD] 240 mg PO DAILY #30 cap 04/05/24 Losartan [Cozaar] 50 mg PO BID #60 tab 04/05/24 Metoprolol Tartrate [Lopressor] 100 mg PO BID #60 tablet 04/05/24 cefuroxime axetiL [Ceftin] 500 mg PO BID #14 tab 04/05/24 Allergies Allergy/AdvReac Type Severity Reaction Status Date / Time No Known Allergies Allergy Verified 08/25/24 12:46 Review of Systems ROS Statement: Those systems with pertinent positive or pertinent negative responses have been documented in the HPI. ROS Other: All systems not noted in ROS Statement are negative. Past Medical History Past Medical History: Atrial Fibrillation, Asthma, COPD, GERD/Reflux, GI Bleed, Hyperlipidemia, Hypertension, Osteoarthritis (OA), Pneumonia, Vascular Disorder Additional Past Medical History / Comment(s): L[place], Bronchitis, gastric ulcer, diverticular disease, lower GI bleed/AV malformation with ablation, benign colon polyp, borderline hyperlipidemia, arthritis mostly in back, slight bilateral glaucoma, varicosities. History of Any Multi-Drug Resistant Organisms: None Reported Past Surgical History: Adenoidectomy, Appendectomy, Heart Catheterization, Hysterectomy, Tonsillectomy, Tubal Ligation Additional Past Surgical History / Comment(s): Colonoscopy/benign polypectomy/AV malformation ablation, bilateral cataract removals, watchmen procedure Past Anesthesia/Blood Transfusion Reactions: No Reported Reaction Additional Past Anesthesia/Blood Transfusion Reaction / Comment(s): never recieved blood before. Past Psychological History: No Psychological Hx Reported Smoking Status: Never smoker Past Alcohol Use History: None Reported Past Drug Use History: None Reported - Past Family History Father Family Medical History: COPD Additional Family Medical History / Comment(s): EMPHYSEMA Mother Family Medical History: Osteoarthritis (OA) Additional Family Medical History / Comment(s): EMPHYSEMA, BOWEL OBSTRUCTION/COLOSTOMY General Exam - General Exam Comments Initial Comments: PHYSICAL EXAM: General Impression: Alert and oriented x3, not in acute distress HEENT: Normocephalic atraumatic, extra-ocular movements intact, pupils equal and reactive to light bilaterally, mucous membranes moist. Cardiovascular: Heart regular rate and rhythm Chest: Able to complete full sentences, no retractions, no tachypnea Abdomen: abdomen soft, non-tender, non-distended, no organomegaly Musculoskeletal: Pulses present and equal in all extremities, no peripheral edema Motor: no focal deficits noted Neurological: CN II-XII grossly intact, no focal motor or sensory deficits noted Skin: Intact with no visualized rashes Psych: Normal affect and mood Limitations: no limitations Course Vital Signs 08/25/24 08/25/24 12:42 14:35 Temperature 97.7 F 98 F Pulse Rate 72 81 Respiratory 18 16 Rate Blood Pressure 172/71 186/85 O2 Sat by Pulse 98 97 Oximetry EKG Findings - EKG Comments: EKG Findings:: My EKG interpretation: Ventricular rate 75, A-fib, QRS 89, QTc 431. No RI prolongation, no QTC prolongation, no ST or T-wave changes noted.Overall, this EKG is unremarkable Medical Decision Making - Medical Decision Making Was pt. sent in by a medical professional or institution (, PA, FLATLOCK SEWING MACHINE OPERATOR, urgent care, hospital, or custodial...) When possible be specific @ -No Did you speak to anyone other than the patient for history (EMS, parent, family, police, friend...)? What history was obtained from this source @ -Daughters described above Did you review nursing and triage notes (agree or disagree)? Why? @ -I reviewed and agree with nursing and triage notes Were old charts reviewed (outside hosp., previous admission, EMS record, old EKG, old radiological studies, urgent care reports/EKG's, custodial records)? Report findings @ -No old charts were reviewed Differential Diagnosis (chest pain, altered mental status, abdominal pain women, abdominal pain men, vaginal bleeding, musculoskeletal, weakness, fever, dy spnea, syncope, headache, dizziness, GI bleed, back pain, seizure, CVA, palpatations, mental health)? @ -Differential Chest Pain: Stable Angina, Unstable Angina, STEMI, NSTEMI Aortic Dissection, Pneumothorax, Musculoskeletal, Esophageal Spasm GERD, Cholecystitis, Pancreatitis, Zoster, this is not meant to be an all-inclusive list. EKG interpreted by me (3pts min.). @ -See above X-rays interpreted by me (1pt min.). @ -Chest x-ray shows cardiomegaly CT interpreted by me (1pt min.). @ -CT angiography chest shows no acute processes. U/S interpreted by me (1pt. min.). @ -None done What testing was considered but not performed or refused? (CT, X-rays, U/S, labs)? Why? @ -None What meds were considered but not given or refused? Why? @ -None Was smoking cessation discussed for >3mins.? @ -No Were there social determinants of health that impacted care today? How? (Homelessness, low income, unemployed, alcoholism, drug addiction, transportation, low edu. Level, literacy, decrease access to med. care, shelter, rehab)? @ -No Was there de-escalation of care discussed even if they declined (Discuss DNR or withdrawal of care, Hospice)? DNR status @ -No What co-morbidities impacted this encounter? (DM, HTN, Smoking, COPD, CAD, Cancer, CVA, ARF, Chemo, Hep., AIDS, mental health diagnosis, sleep apnea, morbid obesity)? @ -DVT, A-flutter Was patient admitted / discharged? Hospital course, mention meds given and route, prescriptions, significant lab abnormalities, going to OR and other pertinent info. @ -71-year-old female with pleuritic chest pain with reported shortness of breath. Vital signs stable. Patient no acute distress at the bedside. She does have history of IVC filter Watchman procedure. Not hypoxic. Not dyspneic appearing. Laboratory evaluation obtained. D-dimer elevated 1.12. Rest of labs within acceptable limits. Chest x-ray shows cardiomegaly. CT angiography chest shows no acute processes. Patient related events upon to be stable to condition. Patient discharged advised follow-up with primary doctor. Patient's pleurisy likely musculoskeletal in nature. Did you discuss the management of the patient with other professionals (professionals i.e. , PA, FLATLOCK SEWING MACHINE OPERATOR, lab, RT, psych nurse, certified social workers in health care, software installer, teacher, executive vice president and chief financial officer, case resolution specialist)? Give summary @ -No Was critical care preformed (if so, how long)? @ -No Undiagnosed new problem with uncertain prognosis? @ -No Drug Therapy requiring intensive monitoring for toxicity (Heparin, Nitro, Insulin, Cardizem)? @ -No Were any procedures done? @ -No Diagnosis/symptom? Acute, or Chronic, or Acute on Chronic? Uncomplicated (without systemic symptoms) or Complicated (systemic symptoms)? @ -Pleuritic chest pain Side effects of treatment? @ -No Exacerbation, Progression, or Severe Exacerbation? @ -No Poses a threat to life or bodily function? How? (Chest pain, USA, IA, pneumonia, PE, COPD, DKA, ARF, appy, cholecystitis, CVA, Diverticulitis, Homicidal, Suicidal, threat to staff... and all critical care pts) @ - no - Lab Data Result diagrams: 08/25/24 13:23 08/25/24 13:23 Lab Results 08/25/24 08/25/24 08/25/24 Range/Units 13:23 13:23 13:23 WBC 10.42 H (4.50-10.00) 10*3/uL RBC 4.22 (4.10-5.20) 10*6/uL Hgb 14.3 (12.0-15.0) g/dL Hct 42.0 (37.2-46.3) % MCV 99.5 H (80.0-97.0) fL MCH 33.9 H (27.0-32.0) pg MCHC 34.0 (32.0-37.0) g/dL Plt Count 226 (140-440) 10*3/uL MPV 10.2 (9.5-12.2) fL Immature Gran % (Auto) 0.2 % Neutrophils % 68.9 % Lymphocytes % 18.4 % Monocytes % 10.4 % Eosinophils % 1.8 % Basophils % 0.3 % Immature Gran # 0.02 (0.00-0.04) 10*3/uL Neutrophils # 7.18 (1.80-7.70) 10*3/uL Lymphocytes # 1.92 (0.90-5.00) 10*3/uL Monocytes # 1.08 H (0.20-1.00) 10*3/uL Eosinophils # 0.19 (0.04-0.35) 10*3/uL Basophils # 0.03 (0.00-0.10) 10*3/uL PT 10.4 (10.0-12.5) sec INR 0.9 (<1.2) APTT 24.7 (22.0-30.0) sec D-Dimer 1.12 H (<0.60) mg/L FEU Sodium 139 (137-145) mmol/L Potassium 3.8 (3.5-5.1) mmol/L Chloride 102 (98-107) mmol/L Carbon Dioxide 31 H (22-30) mmol/L Anion Gap 6 mmol/L BUN 20 H (7-17) mg/dL Creatinine 0.97 (0.52-1.04) mg/dL Est GFR (CKD-EPI)AfAm 64 (>60 ml/min/1.73 sqM) Est GFR (CKD-EPI)NonAf 56 (>60 ml/min/1.73 sqM) Glucose 164 H (74-99) mg/dL Calcium 10.4 H (8.4-10.2) mg/dL Total Bilirubin 1.3 (0.2-1.3) mg/dL AST 26 (14-36) U/L ALT 22 (4-34) U/L Alkaline Phosphatase 132 H (38-126) U/L Troponin I (0.000-0.034) ng/mL Total Protein 6.9 (6.3-8.2) g/dL Albumin 3.9 (3.5-5.0) g/dL 08/25/24 Range/Units 13:23 WBC (4.50-10.00) 10*3/uL RBC (4.10-5.20) 10*6/uL Hgb (12.0-15.0) g/dL Hct (37.2-46.3) % MCV (80.0-97.0) fL MCH (27.0-32.0) pg MCHC (32.0-37.0) g/dL Plt Count (140-440) 10*3/uL MPV (9.5-12.2) fL Immature Gran % (Auto) % Neutrophils % % Lymphocytes % % Monocytes % % Eosinophils % % Basophils % % Immature Gran # (0.00-0.04) 10*3/uL Neutrophils # (1.80-7.70) 10*3/uL Lymphocytes # (0.90-5.00) 10*3/uL Monocytes # (0.20-1.00) 10*3/uL Eosinophils # (0.04-0.35) 10*3/uL Basophils # (0.00-0.10) 10*3/uL PT (10.0-12.5) sec INR (<1.2) APTT (22.0-30.0) sec D-Dimer (<0.60) mg/L FEU Sodium (137-145) mmol/L Potassium (3.5-5.1) mmol/L Chloride (98-107) mmol/L Carbon Dioxide (22-30) mmol/L Anion Gap mmol/L BUN (7-17) mg/dL Creatinine (0.52-1.04) mg/dL Est GFR (CKD-EPI)AfAm (>60 ml/min/1.73 sqM) Est GFR (CKD-EPI)NonAf (>60 ml/min/1.73 sqM) Glucose (74-99) mg/dL Calcium (8.4-10.2) mg/dL Total Bilirubin (0.2-1.3) mg/dL AST (14-36) U/L ALT (4-34) U/L Alkaline Phosphatase (38-126) U/L Troponin I <0.012 (0.000-0.034) ng/mL Total Protein (6.3-8.2) g/dL Albumin (3.5-5.0) g/dL Disposition Clinical Impression: Chest pain, Pleurisy Disposition: HOME SELF-CARE Condition: Fair Instructions (If sedation given, give patient instructions): Pleurisy (ED) Is patient prescribed a controlled substance at d/c from ED?: No Referrals: Zbigniew Gary DO [Primary Care Provider] - 1-2 days Time of Disposition: 14:55
[2024-08-25 13:36] LABS: Basophils # (A) 0.03 10*3/uL (0.00-0.10); Basophils % (A) 0.3 %; Eosinophils # (A) 0.19 10*3/uL (0.04-0.35); Eosinophils % (A) 1.8 %; HGB 14.3 g/dL (12.0-15.0); Lymphocytes # (A) 1.92 10*3/uL (0.90-5.00); Lymphocytes % (A) 18.4 %; MCH 33.9 pg (27.0-32.0); MCV 99.5 fL (80.0-97.0); Mean Platelet Volume 10.2 fL (9.5-12.2); Monocytes # (A) 1.08 10*3/uL (0.20-1.00); Monocytes % (A) 10.4 %; Neutrophils # (A) 7.18 10*3/uL (1.80-7.70); Neutrophils % (A) 68.9 %; Platelet Count 226 10*3/uL (140-440); RBC 4.22 10*6/uL (4.10-5.20); RDW 13.7 % (11.5-14.5); WBC 10.42 10*3/uL (4.50-10.00)
[2024-08-25 13:48] LABS: ALT 22 U/L (4-34); AST 26 U/L (14-36); African American GFR (CKD) 64 (>60 ml/min/1.73 sqM); Albumin 3.9 g/dL (3.5-5.0); Alkaline Phosphatase 132 U/L (38-126); Anion Gap 6 mmol/L; Blood Urea Nitrogen 20 mg/dL (7-17); Calcium 10.4 mg/dL (8.4-10.2); Carbon Dioxide 31 mmol/L (22-30); Chloride 102 mmol/L (98-107); Glucose 164 mg/dL (74-99); Non-African American GFR(CKD) 56 (>60 ml/min/1.73 sqM); Potassium 3.8 mmol/L (3.5-5.1); Sodium 139 mmol/L (137-145); Total Bilirubin 1.3 mg/dL (0.2-1.3); Total Protein 6.9 g/dL (6.3-8.2)
[2024-08-25 13:57] LABS: INR 0.9 (<1.2); Partial Thromboplastin Time 24.7 sec (22.0-30.0); Prothrombin Time 10.4 sec (10.0-12.5)
--- NOTE | 2024-08-25 14:06 | XR ---
EXAMINATION TYPE: XR chest 2V DATE OF EXAM: 08/25/2024 2:01 PM COMPARISON: 03/31/2024 CLINICAL INDICATION: Female, 79 years old with history of pleuritic chest pain, dyspnea, , TECHNIQUE: AP and lateral views FINDINGS: Partially visualized posterior cervicothoracic fusion hardware. Heart/pericardiac silhouette moderate ly enlarged. Suspect left atrial appendage occluded device. Mild atherosclerotic arch calcifications. Hyperinflation. No consolidation or pleural effusion. IMPRESSION: 1. Ongoing cardiomegaly and/or pericardial effusion. Consider cardiac echo to determine the cause of enlargement of the heart silhouette. 2. COPD. Otherwise, no definite acute process. [facility], Workstation: [facility], 08/25/2024 2:04 PM
[2024-08-25 14:37] VITALS: RESP 16; TEMP 98
--- NOTE | 2024-08-25 14:44 | CT ---
EXAMINATION TYPE: CT angio chest DATE OF EXAM: 08/25/2024 COMPARISON: CLINICAL INDICATION: Female, 79 years old with history of positive D-dimer; PHH, elevated d-dimer, so b and upper back pain. TECHNIQUE: CTA scan of the thorax is performed with IV Contrast, patient injected with 68ml mL of Isovue 370, pu lmonary embolism protocol. MIP images are created and reviewed. CT DLP: [address] CTDI: mGy Automated exposure control for dose reduction was used. FINDINGS: LUNGS: There is a focal area of stable chronic interstitial scarring in the right upper lobe laterall y. There is mild pleural parenchymal scarring in the apices. There is no airspace consolidation. Ther e is no pleural effusion or pneumothorax. MEDIASTINUM: There is satisfactory enhancement of the pulmonary artery and its branches, there is no CT evidence for pulmonary embolism. There are no greater than 1 cm hilar or mediastinal lymph nodes. No pericardial effusion is seen. There is moderate to marked cardiomegaly. There is marked dilatat ion of the main pulmonary artery which measures 3.6 cm. There is a left atrial occlusive device. IMPRESSION: 1. NO EVIDENCE OF PULMONARY EMBOLISM. 2. STABLE SMALL FOCAL INTERSTITIAL SCAR IN THE RIGHT UPPER LOBE LATERALLY MILD STABLE PLEURAL PARENCH YMAL SCARRING. 3. MODERATE TO MARKED CARDIOMEGALY. 4. Main PULMONARY ARTERY DILATED TO 3.6 CM. [facility], , 08/25/2024 2:42 PM
[2024-08-25 15:31] VITALS: BP 169/82; PULSE 79
== END 2024-08-25 15:33 | disposition home or self-care (01) ==
LOC: EC 12:40
DX: I51.7 Cardiomegaly (principal); I48.92 Unspecified atrial flutter; I82.409 Acute embolism and thrombosis of unspecified deep veins of unspecified lower extremity
CPT/HCPCS: 36415; 93005; 85379; 80053; 84484; 85025; 85610; 85730; 71046; 71275; 99284; Q9967

== ENCOUNTER → 2024-09-29 | Outpatient (CLI) | payer MEDICARE ==
--- NOTE | 2024-09-29 12:14 | MM ---
Reason for Exam: Screening (asymptomatic). Last mammogram was performed 1 year(s) and 10 month(s) ago. Patient History: Menarche at age 15. First Full-Term at age 24. Hysterectomy at age 29. Postmenopausal. 03/26/2016, US discontinued breast bx RT on the right side. Sister had breast cancer, age 60. Risk Values: Britni 5 year model risk: 2.9%. NCI Lifetime model risk: 4.5%. Prior Study Comparison: 04/14/2020 Bilateral Screening Mammogram, [facility]. 08/04/2021 Bilateral Screening Mammogram, [facility]. 12/04/2022 Bilateral MG screening mammo w CAD, [facility]. Tissue Density: The breasts are heterogeneously dense, which may obscure small masses. Findings: Analyzed By CAD. Stable small circumscribed masses in the bilateral breasts. Benign-appearing vascular calcification in the left breast. There is no suspicious new group of microcalcifications or new suspicious mass in either breast. Overall Assessment: Benign, BI-RAD 2 Management: Screening Mammogram of both breasts in 1 year. . Patient should continue monthly self-breast exams. A clinical breast exam by your physician is recommended on an annual basis. This exam should not preclude additional follow-up of suspicious palpable abnormalities. Note on Britni scores and lifetime risk: 1. A Britni score greater than 3% is considered moderate risk. If this is the case, consider specialist referral to assess eligibility for a risk reducing agent. 2. If overall lifetime risk for the development of breast cancer is 20% or higher, the patient may qualify for future screening with alternating mammogram and breast MRI. [facility], , 09/29/2024 12:10 PM. Electronically signed and approved by: Doron Victor M.D.
== END | disposition home or self-care (01) ==
LOC: RADMAMWWP 10:38
PROVIDERS: ATTEND Family Medicine
DX: Z12.31 Encounter for screening mammogram for malignant neoplasm of breast (principal); R92.333 Mammographic heterogeneous density, bilateral breasts; Z78.0 Asymptomatic menopausal state; Z80.3 Family history of malignant neoplasm of breast
CPT/HCPCS: 77067